=== PATIENT | female | born 1965 | race Caucasian/White ===

== ENCOUNTER 2017-02-24 21:05 | Observation (INO) | payer MEDICARE, SELFPAY ==
[2017-02-24 21:06] VITALS: BP 169/102; PULSE 102; RESP 20; TEMP 36.7; O2SAT 92; BMI 44.1
--- NOTE | 2017-02-24 21:23 | RAD_ITS ---
STUDY: X-RAY CHEST REASON FOR EXAM: Female, 51 years old. Shortness of breath and congestion TECHNIQUE: COMPARISON: None. FINDINGS: The lungs are clear and expanded. There is no demonstrated pleural abnormality. Normal size heart. Normal mediastinum and christy. Normal visualized pulmonary arteries. Normal visualized aortic arch and descending thoracic aorta. Normal visualized thoracic spine. Normal visualized ribs, clavicles, and shoulders. There is no demonstrated abnormality of the visualized soft tissue structures of the upper abdomen. RAD/Chest 1 View (Portable) IMPRESSION: Normal x-ray examination of the chest. Electronically Signed: Simón Alcantar MD at 21:50 EDT , Service support ,
--- NOTE | 2017-02-24 21:23 | EKG12_ITS ---
Test Reason : SOB Blood Pressure : / mmHG Vent. Rate : 082 BPM Atrial Rate : 082 BPM P-R Int : 160 ms QRS Dur : 084 ms QT Int : 388 ms P-R-T Axes : 039 -17 050 degrees QTc Int : 453 ms Normal sinus rhythm Poor R wave progression Inferior infarct , age undetermined Abnormal ECG Confirmed by LILLIAN LEPE, JUWAN ([id number]), greeting card editor COLLINS QUEZADA ([id number]) on 03/01/2017 2:16:07 PM Referred By: GIBSON Confirmed By:JUWAN SNYDER MD
--- NOTE | 2017-02-24 21:25 | ED.VISSUMM ---
- ER Visit Summary Date of Service: 02/24/17 Chief Complaint: Lungs congested, shortness of breath History of Present Illness: The patient is a 51 F presents with cough, shortness of breath, congestion. This has been ongoing for the past 2 days. She feels short of breath worsened when she walks around. She has chest pain intermittently. She has a history of tracheostomy status post angioedema and history of COPD. She uses albuterol at home. She noted greenish discharge on her tracheostomy dressing. She complains of subjective fever. Denies other complaints. Physical Examination: Vitals are stable. Patient is afebrile. Alert no acute distress. HEENT exam is unremarkable. Neck is supple, tracheostomy clean dry and intact, no drainage noted. Lungs are diminished bilaterally. Heart is regular rate and rhythm. Abdomen is soft nontender nondistended. Extremities are unremarkable. Skin is warm and dry. No focal neurologic deficit. Remainder of exam is unremarkable. Emergency Department Course and Treatment: She is given albuterol and Atrovent aerosols. She is given Solu-Medrol IV. EKG is sinus rate is 82 with no acute ischemic changes. Chest x-ray shows no acute process. CBC chemistries unremarkable except for creatinine 1.5, glucose 159. Troponin is negative. Lactic acid is 2.1. Patient does not meet sirs criteria, I feel her symptoms are likely due to COPD exacerbation. She was ambulated in the ED and maintained pulse ox of 94%, but did develop chest pain after ambulating. Repeat EKG showed normal sinus rhythm rate of 96 with no acute ischemic changes. Due to her chest pain and COPD exacerbation will discuss with the hospitalist for observation. Disposition: Observation Impression: COPD exacerbation, chest pain ED Disposition - Plan for ED Patient: Chief Complaint: Shortness of Breath Referrals: Joaquim Burks DO [Primary Care Provider] -
[2017-02-24 21:46] VITALS: PULSE 104; RESP 20; O2SAT 95
[2017-02-24] MEDS: Ipratropium/Albuterol Sulfate 3 ML AMPUL.NEB INHALATION (21:46)
[2017-02-24 21:51] LABS: Absolute Lymphocyte Count 2.86 X10^3/ul (0.83-4.51); Basophil# 0.07 X10^3/uL; Basophil% 0.9 % (0-1); Eosinophil# 0.19 X10^3/uL; Eosinophils% 2.4 % (0-5); Hematocrit 43.9 % (37-47); Hemoglobin 15.5 g/dl (12.0-15.0); Lymphocyte # 2.86 X10^3/ul (4.0); Lymphocyte % 35.9 % (19-41); Mean Corp Hgb Conc 35.3 g/gl (32-36); Mean Corpuscular Volume 87.8 fL (81-99); Mean Platelet Vol. 10.9 fl (6.2-12.0); Monocyte# 0.83 X10^3/uL; Monocyte% 10.4 % (0-10); Neutrophil # 3.95 X10^3/uL (2.7-7.7); Neutrophil % 49.6 % (47-70); Platelet Count 203 K/mm3 (150-450); RBC Distribution Width CV 13.1 % (11.6-14.6); RBC Distribution Width SD 41.7 fl (35.1-43.9)
[2017-02-24 21:52] LABS: POSITIVE COUNT NO; POSITIVE DIFFERENTIAL NO; POSITIVE MORPHOLOGY NO
[2017-02-24 22:22] LABS: Anion Gap 9 (5-15); BUN 14 mg/dL (7-18); BUN/Creat Ratio 9.3 RATIO (10-20); Calcium,Total 9.1 mg/dL (8.5-10.1); Chloride 101 mmol/L (98-107); EST Glomerular Filtration Rate 39 mL/min (>60); Est Glom Filt Rate - Afr Amer 47 mL/min (>60); Estimated Creatinine Clearance 39.93 ml/min; Glucose 159 mg/dL (70-110); Potassium 3.6 mmol/L (3.5-5.1); Sodium Level 136 mmol/L (136-145)
[2017-02-24 22:23] VITALS: O2SAT 94
[2017-02-24 22:31] VITALS: BP 171/96; PULSE 91; RESP 16; O2SAT 94
[2017-02-24 22:31] LABS: Lactic Acid 2.1 mmol/L (0.4-2.0)
--- NOTE | 2017-02-24 22:31 | ED.RN ---
PT C/O CP WHILE SITTING IN BED AFTER AMBULATION. PT PLACED ON MONITOR IN ROOM AND CALLED FOR REPEAT EKG. MD NOTIFIED OF NEW ONSET CP. ORDERS PLACED
--- NOTE | 2017-02-24 22:33 | ED.RN ---
lab called with critical lab results. lactic acid 2.1. Dr. siddiqui made aware. no new orders at this time
--- NOTE | 2017-02-24 22:34 | EKG12_ITS ---
Test Reason : CP-REPEAT Blood Pressure : / mmHG Vent. Rate : 096 BPM Atrial Rate : 096 BPM P-R Int : 152 ms QRS Dur : 082 ms QT Int : 358 ms P-R-T Axes : 042 -17 050 degrees QTc Int : 452 ms Normal sinus rhythm Inferior infarct , age undetermined Nonspecific T wave abnormality Abnormal ECG Confirmed by LILLIAN LEPE, JUWAN ([id number]), film and video editor COLLINS QUEZADA ([id number]) on 03/01/2017 2:16:33 PM Referred By: GIBSON Confirmed By:JUWAN SNYDER MD
[2017-02-24] MEDS: MethylPREDNISolone 125 MG/2 ML Vial IV (22:41)
--- NOTE | 2017-02-24 23:13 | PCM.HP.STD ---
Problem List (1) COPD (chronic obstructive pulmonary disease) Status: Chronic Qualifiers: COPD type: unspecified COPD Qualified Code(s): J44.9 - Chronic obstructive pulmonary disease, unspecified (2) Morbid obesity Status: Chronic (3) Anxiety and depression Status: Chronic (4) Status post tracheostomy Status: Chronic (5) Depression Status: Chronic Qualifiers: Depression Type: unspecified Qualified Code(s): F32.9 - Major depressive disorder, single episode, unspecified (6) Hyperlipidemia Status: Chronic Qualifiers: Hyperlipidemia type: unspecified Qualified Code(s): E78.5 - Hyperlipidemia, unspecified (7) Hypertension Status: Chronic Qualifiers: Hypertension type: essential hypertension Qualified Code(s): I10 - Essential (primary) hypertension (8) Type II diabetes mellitus Status: Chronic Qualifiers: Diabetes mellitus complication status: with unspecified complications Diabetes mellitus skilled nursing insulin use: without skilled nursing use Qualified Code(s): E11.8 - Type 2 diabetes mellitus with unspecified complications History of Present Illness Date of Admission: 02/24/17 Chief Complaint: Dyspnea, cough, wheezing The patient is a 51 y/o F w/ PMHx: Chronic COPD, HTN, Anxiety and Depression, GERD, Morbid Obesity with trach in place secondary to angioedema, unclear etiology who presents with dyspnea, upper respiratory symptoms with congestion. She notes respiratory symptoms ongoing x 2-3 days, not improving. She notes that her dyspnea and wheezing have been worse with exertional attempts. She noted some discharge from her tracheostomy but upon ED evaluation she had no marked discharge, well appearing. She also noted subjective fever; however, afebrile in the ED. In the ED work-up included AF, HR 70-90s, BP 170/90s, RR 16, 94-97% on RA, CBC without WBC elevation or shift noted, BMP w/ BUN/Cr 14/1.50, glucose 159, LA 2.1, trop <0.02, EKG SR without acute evidence of ischemia, CXR with chronic changes. In the ED patient administered duoneb, solumedrol, NS. While in the ED with ambulation assessment she noted some central substernal chest pressure which quickly resolved, repeat EKG unchanged. Past Medical History Past Medical History (Chronic Problems): Chronic Problems Anxiety and depression (Chronic) COPD (chronic obstructive pulmonary disease) (Chronic) Morbid obesity (Chronic) Depression (Chronic) Hyperlipidemia (Chronic) Hypertension (Chronic) Status post tracheostomy (Chronic) Type II diabetes mellitus (Chronic) Allergies bupropion [From Wellbutrin] Allergy (Verified 02/24/17 21:08) Angioedema lisinopril Allergy (Verified 02/24/17 21:08) Angioedema sulfamethoxazole [From Bactrim] Allergy (Verified 02/24/17 21:08) Rash trimethoprim [From Bactrim] Allergy (Verified 02/24/17 21:08) Rash acetaminophen [From Vicodin] Adverse Reaction (Verified 02/24/17 21:08) Nausea/Vom/Diarrhea aspirin Adverse Reaction (Verified 02/24/17 21:08) Nausea/Vom/Diarrhea hydrocodone [From Vicodin] Adverse Reaction (Verified 02/24/17 21:08) Nausea/Vom/Diarrhea Home Medications: Ambulatory Orders Medication Instructions Recorded Atenolol [Tenormin (beta haley)] 100 mg PO DAILY 02/20/16 Buspirone HCl 15 mg PO TID 02/20/16 Fluoxetine HCl 40 mg PO DAILY 02/20/16 Spironolactone [Aldactone] 50 mg PO DAILY 02/20/16 Epinephrine [Epi Pen] 0.3 mg IM X1 PRN #1 syringe 04/01/16 Famotidine [Pepcid] 40 mg PO DAILY #5 tablet 04/01/16 Loratadine [Claritin] 10 mg PO DAILY 12/16/16 GlyBURIDE [Micronase] 2.5 mg PO DAILY 02/25/17 Trazodone HCl 100 mg PO QHS 02/25/17 Surgical History: - - Tracheostomy, cholecystectomy, bilateral tubal ligation, NovaSure, bladder suspension surgery. Psychiatric History: No pertinent psych hx [employer] History: No pertinent [employer] history Lives: Spouse/ Significant Other Smoking Status: Former smoker - Quit 2 years prior. Tobacco Use: Non-smoker Alcohol: None Drugs: None - *Family History Maternal History Items: Diabetes, High Cholesterol, Heart Disease, Hypertension Paternal History Items: Diabetes, High Cholesterol, Heart Disease, Hypertension Review of Systems Constitutional: Reports: Fever, Weakness, Fatigue. Denies: Chills, Weight Change HEENT: Reports: Nasal Congestion, Post Nasal Drip, Sinus Drainage. Denies: Head Aches, Sinus Congestion Cardiovascular: Denies: Chest Pain, Palpitations Respiratory: Reports: Cough, Shortness of Breath, Shortness of breath at rest, Shortness of breath upon exertion, Sputum production, Wheezing Gastrointestinal: Denies: Abdominal Pain, Nausea, Vomiting Genitourinary: Denies: Dysuria Musculoskeletal: Denies: Joint Pain, Joint Tenderness Skin: Denies: Rash, Wounds Neurological: Denies: Numbness, Tingling, Focal weakness Psychiatric: Reports: Anxiety, Depression. Denies: Homicidal Ideations, Suicidal Ideations Hematologic/ Lymphatic: Denies: Easy Bruising, Easy Bleeding VTE Information - Inpt Only VTE Present on Admission: No VTE Mechan Device Prophylaxis: SCD's VTE Pharm Prophylaxis ordered?: Yes Subjective: Seated upright in bed, NAD, improved appearance, remains on RA. Objective: Physical Examination: General: awake, alert, oriented x 3 and cooperative, seated upright in bedside chair, in no apparent distress. Skin: normal color, turgor, no icterus, cyanosis. HEENT: AT/NC, EOMI, PERRLA, dry MM, no carotid bruits or JVD noted; however, thickened neck makes examination difficult, tracheostomy in place, no purulent sputum noted. Lungs: Diminished BS BL, > bases, mild effort, no rales, ronchi or wheezing. Heart: Regular rate and rhythm; no gallop, rub audible. Abdomen: soft, morbidly obese, NTTP, ND, normal BS, no HSM. Extremities: no cyanosis, clubbing, BL ankle edema. Neurological: patient awake, alert, oriented x 3; cognitive function intact; pupils equally reactive to light and accomodation; cranial nerves II-XII grossly normal, moving all 4 extremities, no focal deficits, strength moderately to severely globally decreased secondary to acute presentation. Psychiatric: affect appears normal, no acute evidence of depressive or anxiety feelings. - Physical Exam Vital Signs Temp Pulse Resp BP Pulse Ox 98.0 F 91 16 171/96 94 02/24/17 21:06 02/24/17 22:31 02/24/17 22:31 02/24/17 22:31 02/24/17 22:31 Oxygen Delivery Method Room Air Weight: 265 lb 3.457 oz Body Mass Index (BMI) 44.1 Laboratory Tests Past 24 Hrs 02/24/17 02/24/17 02/24/17 21:40 21:40 21:40 WBC 8.0 RBC 5.00 Hgb 15.5 H Hct 43.9 MCV 87.8 MCH 31.0 MCHC 35.3 RDW 13.1 RDW Differential 41.7 Plt Count 203 MPV 10.9 Immature Gran % (Auto) 0.800 Neut % (Auto) 49.6 Lymph % (Auto) 35.9 [place] % (Auto) 10.4 H Eos % (Auto) 2.4 Baso % (Auto) 0.9 Absolute Neuts (auto) 4.0 Absolute Lymphs (auto) 2.86 Total Counted Not Reportable Sodium 136 Potassium 3.6 Chloride 101 Carbon Dioxide 26.0 Anion Gap 9 BUN 14 Creatinine 1.50 H Estim Creat Clear Calc 39.93 Est GFR (MDRD) Af Amer 47 L Est GFR (MDRD) Non-Af 39 L BUN/Creatinine Ratio 9.3 L Glucose 159 H Lactic Acid 2.1 H Calcium 9.1 Troponin I < 0.02 Assessment/Plan The patient is a 51 y/o F w/ PMHx: Chronic COPD, HTN, Anxiety and Depression, GERD, Morbid Obesity with trach in place secondary to angioedema, unclear etiology who presents with dyspnea, upper respiratory symptoms with congestion x 2-3 days. (1) Acute on chronic COPD exacerbation: Will admit to [facility] telemetry, maintain on oxygen with wean as tolerated to room air, continue ATC duonebs, PRN albuterol, IV methylprednisolone with prednisone transition, HOB, IS parameters, defer abx given afebrile, no marked WBC elevation or shift, pending sputum cultures. Respiratory viral panel pending. (2) Chest Pain: EKG SR without acute evidence of ischemia, CXR with chronic changes, trop normal x 1. Likely secondary to concurrent COPD exacerbation but to be cautious will maintain on a monitored bed to assure no acute myocardial infarction with serial cardiac enzymes and EKGs. ASA allergy. (3) Acute kidney injury: Unclear specific etiology, possible mild dehydration, pre-renal in addition to nephrotoxic medications. Admission BUN/Cr 14/1.50, prior baseline creatinine noted to be 0.8-1.0. Will hydrate, hold nephrotoxic medications and repeat chemistry in AM. (4) History of Severe Angioedema, s/p Tracheostomy: s/p trach as noted, possibly secondary to ACEI. (5) Hypertension: Continue home regimen including atenolol, holding spironolactone as noted, PRN hydralazine. (6) Morbid Obesity: Weight loss and lifestyle changes encouraged, nutrition consulted. (7) Anxiety and Depression: Continue home regimen dodie perdomo. (8) GERD: Famotidine. (9) DVT Prophylaxis: SCDs, heparin.
--- NOTE | 2017-02-24 23:24 | HP.PCM_ITS ---
Problem List (1) COPD (chronic obstructive pulmonary disease) Status: Chronic Qualifiers: COPD type: unspecified COPD Qualified Code(s): J44.9 - Chronic obstructive pulmonary disease, unspecified (2) Morbid obesity Status: Chronic (3) Anxiety and depression Status: Chronic (4) Status post tracheostomy Status: Chronic (5) Depression Status: Chronic Qualifiers: Depression Type: unspecified Qualified Code(s): F32.9 - Major depressive disorder, single episode, unspecified (6) Hyperlipidemia Status: Chronic Qualifiers: Hyperlipidemia type: unspecified Qualified Code(s): E78.5 - Hyperlipidemia , unspecified (7) Hypertension Status: Chronic Qualifiers: Hypertension type: essential hypertension Qualified Code(s): I10 - Essential (primary) hypertension (8) Type II diabetes mellitus Status: Chronic Qualifiers: Diabetes mellitus complication status: with unspecified complications Diabetes mellitus mcfp insulin use: without news broadcaster use Qualified Code( s): E11.8 - Type 2 diabetes mellitus with unspecified complications History of Present Illness Date of Admission: 02/24/17 Chief Complaint: Dyspnea, cough, wheezing The patient is a 51 y/o F w/ PMHx: Chronic COPD, HTN, Anxiety and Depression, GERD, Morbid Obesity with trach in place secondary to angioedema, unclear etiology who presents with dyspnea, upper respiratory symptoms with congestion. She notes respiratory symptoms ongoing x 2-3 days, not improving. She notes that her dyspnea and wheezing have been worse with exertional attempts. She noted some discharge from her tracheostomy but upon ED evaluation she had no marked discharge, well appearing. She also noted subjective fever; however, afebrile in the ED. In the ED work-up included AF, HR 70-90s, BP 170/90s, RR 16 , 94-97% on RA, CBC without WBC elevation or shift noted, BMP w/ BUN/Cr 14/1.50 , glucose 159, LA 2.1, trop <0.02, EKG SR without acute evidence of ischemia, CXR with chronic changes. In the ED patient administered duoneb, solumedrol, NS. While in the ED with ambulation assessment she noted some central substernal chest pressure which quickly resolved, repeat EKG unchanged. Past Medical History Past Medical History (Chronic Problems): Chronic Problems Anxiety and depression (Chronic) COPD (chronic obstructive pulmonary disease) (Chronic) Morbid obesity (Chronic) Depression (Chronic) Hyperlipidemia (Chronic) Hypertension (Chronic) Status post tracheostomy (Chronic) Type II diabetes mellitus (Chronic) Allergies bupropion [From Wellbutrin] Allergy (Verified 02/24/17 21:08) Angioedema lisinopril Allergy (Verified 02/24/17 21:08) Angioedema sulfamethoxazole [From Bactrim] Allergy (Verified 02/24/17 21:08) Rash trimethoprim [From Bactrim] Allergy (Verified 02/24/17 21:08) Rash acetaminophen [From Vicodin] Adverse Reaction (Verified 02/24/17 21:08) Nausea/Vom/Diarrhea aspirin Adverse Reaction (Verified 02/24/17 21:08) Nausea/Vom/Diarrhea hydrocodone [From Vicodin] Adverse Reaction (Verified 02/24/17 21:08) Nausea/Vom/Diarrhea Home Medications: Ambulatory Orders Medication Instructions Recorded Atenolol [Tenormin (beta haley)] 100 mg PO DAILY 02/20/16 Buspirone HCl 15 mg PO TID 02/20/16 Fluoxetine HCl 40 mg PO DAILY 02/20/16 Spironolactone [Aldactone] 50 mg PO DAILY 02/20/16 Epinephrine [Epi Pen] 0.3 mg IM X1 PRN #1 syringe 04/01/16 Famotidine [Pepcid] 40 mg PO DAILY #5 tablet 04/01/16 Loratadine [Claritin] 10 mg PO DAILY 12/16/16 GlyBURIDE [Micronase] 2.5 mg PO DAILY 02/25/17 Trazodone HCl 100 mg PO QHS 02/25/17 Surgical History: - - Tracheostomy, cholecystectomy, bilateral tubal ligation, NovaSure, bladder suspension surgery. Psychiatric History: No pertinent psych hx [employer] History: No pertinent [employer] history Lives: Spouse/ Significant Other Smoking Status: Former smoker - Quit 2 years prior. Tobacco Use: Non-smoker Alcohol: None Drugs: None - *Family History Maternal History Items: Diabetes, High Cholesterol, Heart Disease, Hypertension Paternal History Items: Diabetes, High Cholesterol, Heart Disease, Hypertension Review of Systems Constitutional: Reports: Fever, Weakness, Fatigue. Denies: Chills, Weight Change HEENT: Reports: Nasal Congestion, Post Nasal Drip, Sinus Drainage. Denies: Head Aches, Sinus Congestion Cardiovascular: Denies: Chest Pain, Palpitations Respiratory: Reports: Cough, Shortness of Breath, Shortness of breath at rest, Shortness of breath upon exertion, Sputum production, Wheezing Gastrointestinal: Denies: Abdominal Pain, Nausea, Vomiting Genitourinary: Denies: Dysuria Musculoskeletal: Denies: Joint Pain, Joint Tenderness Skin: Denies: Rash, Wounds Neurological: Denies: Numbness, Tingling, Focal weakness Psychiatric: Reports: Anxiety, Depression. Denies: Homicidal Ideations, Suicidal Ideations Hematologic/ Lymphatic: Denies: Easy Bruising, Easy Bleeding VTE Information - Inpt Only VTE Present on Admission: No VTE Mechan Device Prophylaxis: SCD's VTE Pharm Prophylaxis ordered?: Yes Subjective: Seated upright in bed, NAD, improved appearance, remains on RA. Objective: Physical Examination: General: awake, alert, oriented x 3 and cooperative, seated upright in bedside chair, in no apparent distress. Skin: normal color, turgor, no icterus, cyanosis. HEENT: AT/NC, EOMI, PERRLA, dry MM, no carotid bruits or JVD noted; however, thickened neck makes examination difficult, tracheostomy in place, no purulent sputum noted. Lungs: Diminished BS BL, > bases, mild effort, no rales, ronchi or wheezing. Heart: Regular rate and rhythm; no gallop, rub audible. Abdomen: soft, morbidly obese, NTTP, ND, normal BS, no HSM. Extremities: no cyanosis, clubbing, BL ankle edema. Neurological: patient awake, alert, oriented x 3; cognitive function intact; pupils equally reactive to light and accomodation; cranial nerves II-XII grossly normal, moving all 4 extremities, no focal deficits, strength moderately to severely globally decreased secondary to acute presentation. Psychiatric: affect appears normal, no acute evidence of depressive or anxiety feelings. - Physical Exam Vital Signs Temp Pulse Resp BP Pulse Ox 98.0 F 91 16 171/96 94 02/24/17 21:06 02/24/17 22:31 02/24/17 22:31 02/24/17 22:31 02/24/17 22:31 Oxygen Delivery Method Room Air Weight: 265 lb 3.457 oz Body Mass Index (BMI) 44.1 Laboratory Tests Past 24 Hrs 02/24/17 02/24/17 02/24/17 21:40 21:40 21:40 WBC 8.0 RBC 5.00 Hgb 15.5 H Hct 43.9 MCV 87.8 MCH 31.0 MCHC 35.3 RDW 13.1 RDW Differential 41.7 Plt Count 203 MPV 10.9 Immature Gran % (Auto) 0.800 Neut % (Auto) 49.6 Lymph % (Auto) 35.9 [place] % (Auto) 10.4 H Eos % (Auto) 2.4 Baso % (Auto) 0.9 Absolute Neuts (auto) 4.0 Absolute Lymphs (auto) 2.86 Total Counted Not Reportable Sodium 136 Potassium 3.6 Chloride 101 Carbon Dioxide 26.0 Anion Gap 9 BUN 14 Creatinine 1.50 H Estim Creat Clear Calc 39.93 Est GFR (MDRD) Af Amer 47 L Est GFR (MDRD) Non-Af 39 L BUN/Creatinine Ratio 9.3 L Glucose 159 H Lactic Acid 2.1 H Calcium 9.1 Troponin I < 0.02 Assessment/Plan The patient is a 51 y/o F w/ PMHx: Chronic COPD, HTN, Anxiety and Depression, GERD, Morbid Obesity with trach in place secondary to angioedema, unclear etiology who presents with dyspnea, upper respiratory symptoms with congestion x 2-3 days. (1) Acute on chronic COPD exacerbation: Will admit to [facility] telemetry, maintain on oxygen with wean as tolerated to room air, continue ATC duonebs, PRN albuterol, IV methylprednisolone with prednisone transition, HOB, IS parameters, defer abx given afebrile, no marked WBC elevation or shift, pending sputum cultures. Respiratory viral panel pending. (2) Chest Pain: EKG SR without acute evidence of ischemia, CXR with chronic changes, trop normal x 1. Likely secondary to concurrent COPD exacerbation but to be cautious will maintain on a monitored bed to assure no acute myocardial infarction with serial cardiac enzymes and EKGs. ASA allergy. (3) Acute kidney injury: Unclear specific etiology, possible mild dehydration, pre-renal in addition to nephrotoxic medications. Admission BUN/Cr 14/1.50, prior baseline creatinine noted to be 0.8-1.0. Will hydrate, hold nephrotoxic medications and repeat chemistry in AM. (4) History of Severe Angioedema, s/p Tracheostomy: s/p trach as noted, possibly secondary to ACEI. (5) Hypertension: Continue home regimen including atenolol, holding spironolactone as noted, PRN hydralazine. (6) Morbid Obesity: Weight loss and lifestyle changes encouraged, nutrition consulted. (7) Anxiety and Depression: Continue home regimen dodie perdomo. (8) GERD: Famotidine. (9) DVT Prophylaxis: SCDs, heparin.
[2017-02-24 23:26] VITALS: BP 158/93; PULSE 94; RESP 15; O2SAT 94
[2017-02-25] VITALS (9 sets, daily range): BP systolic 161–175; BP diastolic 82–88; PULSE 75–109; RESP 18–20; TEMP 36.6–36.8; O2SAT 95–97; BMI 44.1; BMI 43.7
--- NOTE | 2017-02-25 00:30 | NURSING ---
pt has not gotten vaccines since childhood
[2017-02-25 00:47] LABS: Reflex Lactate? N
[2017-02-25] MEDS: 0.9% Normal Saline 1,000 ML 999 ML IV (00:54)
[2017-02-25 01:57] LABS: Lactic Acid 1.9 mmol/L (0.4-2.0)
[2017-02-25] MEDS: Ipratropium/Albuterol Sulfate 3 ML AMPUL.NEB INHALATION ×2 (01:59→07:58)
[2017-02-25] MEDS: 0.9% Normal Saline 1,000 ML 125 ML IV (02:08)
[2017-02-25] MEDS: LORazepam 0.5 MG Tablet PO (04:47)
--- NOTE | 2017-02-25 05:55 | EKG12_ITS ---
Test Reason : AM Blood Pressure : / mmHG Vent. Rate : 103 BPM Atrial Rate : 103 BPM P-R Int : 160 ms QRS Dur : 084 ms QT Int : 366 ms P-R-T Axes : 045 -08 046 degrees QTc Int : 479 ms Sinus tachycardia Inferior infarct , age undetermined Abnormal ECG Confirmed by LILLIAN LEPE, JUWAN ([id number]), video effects editor COLLINS QUEZADA ([id number] on 03/02/2017 2:22:04 PM Referred By: OLIVA Confirmed By:JUWAN SNYDER MD
[2017-02-25 06:31] LABS: Anion Gap 14 (5-15); BUN 16 mg/dL (7-18); BUN/Creat Ratio 10.9 RATIO (10-20); Calcium,Total 8.8 mg/dL (8.5-10.1); Chloride 101 mmol/L (98-107); Creatinine, Serum 1.47 mg/dL (0.55-1.02); EST Glomerular Filtration Rate 40 mL/min (>60); Est Glom Filt Rate - Afr Amer 48 mL/min (>60); Estimated Creatinine Clearance 40.74 ml/min; Glucose 315 mg/dL (70-110); Potassium 3.9 mmol/L (3.5-5.1); Sodium Level 133 mmol/L (136-145)
[2017-02-25 06:32] LABS: Basophil# 0.02 X10^3/uL; Basophil% 0.3 % (0-1); Eosinophil# 0.01 X10^3/uL; Eosinophils% 0.2 % (0-5); Hematocrit 42.8 % (37-47); Hemoglobin 14.8 g/dl (12.0-15.0); Lymphocyte % 14.7 % (19-41); Mean Corp Hgb Conc 34.6 g/gl (32-36); Mean Corpuscular Hgb 30.6 pg (27.0-32.0); Mean Corpuscular Volume 88.6 fL (81-99); Monocyte# 0.12 X10^3/uL; Neutrophil # 5.03 X10^3/uL (2.7-7.7); Neutrophil % 81.8 % (47-70); Platelet Count 186 K/mm3 (150-450); RBC Distribution Width CV 13.1 % (11.6-14.6); RBC Distribution Width SD 42.3 fl (35.1-43.9); Red Blood Count 4.83 M/mm3 (4.2-5.4); White Blood Count 6.1 K/mm3 (4.4-11.0)
[2017-02-25 06:40] LABS: POSITIVE COUNT NO; POSITIVE DIFFERENTIAL NO; POSITIVE MORPHOLOGY NO
[2017-02-25 06:46] LABS: Bedside Glucose 310 mg/dL (70-110)
--- NOTE | 2017-02-25 07:31 | PCM.PN.HOSP ---
Subjective: Patient is a 51 year old lady with BMI of 43.8, presence of trach secondary to angioedema of undetermined etiology admitted with progressive shortness of breath and assessment of COPD exacerbation made admitted to a monitored bed where patient is currently being managed Objective: GENERAL: cooperative HEENT: Trach collar in place NECK; supple, normal thyroid, no distended JVD. CHEST: Diminished to auscultation bilaterally, HEART: Regular S1 S2, no audible murmurs ABDOMEN: soft, normoactive bowel sounds, RECTAL: deferred EXTREMITIES: No edema, no clubbing, no cyanosis. ME[employer]ER: Awake, no lateralizing signs. SKIN: No erythema, Vitals/I&O's: Vital Signs Temp Pulse Resp BP Pulse Ox 98.3 F 105 18 161/88 95 02/25/17 04:49 02/25/17 04:49 02/25/17 04:49 02/25/17 04:49 02/25/17 04:49 Oxygen Delivery Method Room Air Weight: 119.3 kg Body Mass Index (BMI) 43.7 Intake and Output for Last 24 Hours 02/23/17 02/24/17 02/25/17 23:59 23:59 23:59 Intake Total 1853 Output Total 975 Balance 878 Laboratory Results 02/25/17 01:22: Troponin I < 0.02 02/25/17 01:22: Lactic Acid 1.9 02/25/17 05:47: WBC 6.1, RBC 4.83, Hgb 14.8, Hct 42.8, MCV 88.6, MCH 30.6, MCHC 34.6, RDW 13.1, RDW Differential 42.3, Plt Count 186, MPV 11.0, Immature Gran % (Auto) 1.000 H, Neut % (Auto) 81.8 H, Lymph % (Auto) 14.7 L, [place] % (Auto) 2.0, Eos % (Auto) 0.2, Baso % (Auto) 0.3, Absolute Neuts (auto) 5.0, Absolute Lymphs (auto) 0.90, Total Counted Not Reportable 02/25/17 05:47: Sodium 133 L, Potassium 3.9, Chloride 101, Carbon Dioxide 18.0 L, Anion Gap 14, BUN 16, Creatinine 1.47 H, Estim Creat Clear Calc 40.74, Est GFR (MDRD) Af Amer 48 L, Est GFR (MDRD) Non-Af 40 L, BUN/Creatinine Ratio 10.9, Glucose 315 H, Calcium 8.8, Troponin I < 0.02 02/25/17 06:36: POC Glucose 310 H Current Medications Acetaminophen (Tylenol) 650 mg PO Q6H PRN PRN PRN Reason: Mild Pain (scale 0-3)/T>100.7 Albuterol Sulfate (Ventolin Aerosols) 2.5 mg INHALATION Q2H PRN PRN PRN Reason: SHORTNESS OF BREATH Albuterol/Ipratropium (Duoneb) 3 ml INHALATION Q4H.RT [facility] Last Admin: 02/25/17 01:59 Dose: 3 ml Atenolol (Tenormin (Beta Jovanni)) 100 mg PO DAILY [facility] Buspirone HCl (Buspirone Hcl) 15 mg PO TID [facility] Last Admin: 02/25/17 06:41 Dose: 15 mg Dextrose (D50w Syringe) 0 gm IV X1 PRN; Protocol PRN Reason: Hypoglycemia Famotidine (Pepcid) 40 mg PO DAILY [facility] Fluoxetine HCl (Prozac) 40 mg PO DAILY [facility] Last Admin: 02/25/17 00:47 Dose: Not Given Glucagon () 1 mg IM .X1 PRN PRN Reason: Hypoglycemia Guaifenesin (Mucinex) 1,200 mg PO BID [facility] Heparin Sodium (Porcine) () 5,000 units SC BID [facility] Hydralazine HCl (Apresoline) 10 mg IV Q4H PRN PRN PRN Reason: SBP > 160 Last Admin: 02/25/17 01:00 Dose: 10 mg Sodium Chloride () 1,000 mls @ 125 mls/hr IV .Q8H [facility] Last Admin: 02/25/17 02:08 Dose: 125 mls/hr Insulin Aspart (Novolog Flexpen (Bkc)) 0 units SC ACHS [facility] PRN Reason: Protocol Last Admin: 02/25/17 06:46 Dose: 3 u Insulin Aspart (Novolog Flexpen (Bkc)) 4 units SC BREAKFAST [facility] Insulin Aspart (Novolog Flexpen (Bkc)) 4 units SC DINNER [facility] Insulin Aspart (Novolog Flexpen (Bkc)) 4 units SC LUNCH [facility] Insulin Detemir (Levemir (Bkc)) 15 units SC BREAKFAST [facility] Insulin Detemir (Levemir (Bkc)) 15 units SC QHS [facility] Loratadine (Claritin) 10 mg PO DAILY [facility] Lorazepam (Ativan) 0.5 mg PO Q8H PRN PRN PRN Reason: anxiety Last Admin: 02/25/17 04:47 Dose: 0.5 mg Methylprednisolone (Solu-Medrol) 40 mg IV Q8 [facility] Last Admin: 02/25/17 06:43 Dose: 40 mg Ondansetron HCl (Zofran) 4 mg IV Q8H PRN PRN PRN Reason: Nausea Sodium Chloride () 5 - 30 ml IV UD PRN PRN Reason: SALINE FLUSH Trazodone HCl (Desyrel) 100 mg PO QHS [facility] Last Admin: 02/25/17 02:07 Dose: 100 mg Assessment/Plan Patient is a 51 year old lady with BMI of 43.8, presence of trach secondary to angioedema of undetermined etiology admitted with progressive shortness of breath and assessment of COPD exacerbation made admitted to a monitored bed where patient is currently being managed 1. Acute COPD exacerbation: Admitted to regular nursing floor managed with systemic steroids, antibiotics as well as supplemental oxygen via trach 2. Diabetes mellitus type 2 with hyperglycemia (due to concomitant use of steroid) patient is on glyburide held on admission placed on scheduled long-acting insulin in addition to correction factor sliding scale 3. Chronic respiratory failure secondary to angioedema with subsequent trach placement 4. Diabetic nephropathy kidney function appears to be at baseline 5. Hypertension-blood pressure controlled, home medications continued with dose adjustment as needed 6. Depression with anxiety 7. GERD 8. Morbid obesity with BMI of 43.8 9. DVT prophylaxis SC heparin
--- NOTE | 2017-02-25 07:34 | PN_ITS ---
Subjective: Patient is a 51 year old lady with BMI of 43.8, presence of trach secondary to angioedema of undetermined etiology admitted with progressive shortness of breath and assessment of COPD exacerbation made admitted to a monitored bed where patient is currently being managed Objective: GENERAL: cooperative HEENT: Trach collar in place NECK; supple, normal thyroid, no distended JVD. CHEST: Diminished to auscultation bilaterally, HEART: Regular S1 S2, no audible murmurs ABDOMEN: soft, normoactive bowel sounds, RECTAL: deferred EXTREMITIES: No edema, no clubbing, no cyanosis. SPD TECH: Awake, no lateralizing signs. SKIN: No erythema, Vitals/I&O's: Vital Signs Temp Pulse Resp BP Pulse Ox 98.3 F 105 18 161/88 95 02/25/17 04:49 02/25/17 04:49 02/25/17 04:49 02/25/17 04:49 02/25/17 04:49 Oxygen Delivery Method Room Air Weight: 119.3 kg Body Mass Index (BMI) 43.7 Intake and Output for Last 24 Hours 02/23/17 02/24/17 02/25/17 23:59 23:59 23:59 Intake Total 1853 Output Total 975 Balance 878 Laboratory Results 02/25/17 01:22: Troponin I < 0.02 02/25/17 01:22: Lactic Acid 1.9 02/25/17 05:47: WBC 6.1, RBC 4.83, Hgb 14.8, Hct 42.8, MCV 88.6, MCH 30.6, MCHC 34.6, RDW 13.1, RDW Differential 42.3, Plt Count 186, MPV 11.0, Immature Gran % (Auto) 1.000 H, Neut % (Auto) 81.8 H, Lymph % (Auto) 14.7 L, [place] % (Auto) 2.0, Eos % (Auto) 0.2, Baso % (Auto) 0.3, Absolute Neuts (auto) 5.0, Absolute Lymphs (auto) 0.90, Total Counted Not Reportable 02/25/17 05:47: Sodium 133 L, Potassium 3.9, Chloride 101, Carbon Dioxide 18.0 L , Anion Gap 14, BUN 16, Creatinine 1.47 H, Estim Creat Clear Calc 40.74, Est GFR (MDRD) Af Amer 48 L, Est GFR (MDRD) Non-Af 40 L, BUN/Creatinine Ratio 10.9, Glucose 315 H, Calcium 8.8, Troponin I < 0.02 02/25/17 06:36: POC Glucose 310 H Current Medications Acetaminophen (Tylenol) 650 mg PO Q6H PRN PRN PRN Reason: Mild Pain (scale 0-3)/T>100.7 Albuterol Sulfate (Ventolin Aerosols) 2.5 mg INHALATION Q2H PRN PRN PRN Reason: SHORTNESS OF BREATH Albuterol/Ipratropium (Duoneb) 3 ml INHALATION Q4H.RT [facility] Last Admin: 02/25/17 01:59 Dose: 3 ml Atenolol (Tenormin (Beta Jovanni)) 100 mg PO DAILY [facility] Buspirone HCl (Buspirone Hcl) 15 mg PO TID [facility] Last Admin: 02/25/17 06:41 Dose: 15 mg Dextrose (D50w Syringe) 0 gm IV X1 PRN; Protocol PRN Reason: Hypoglycemia Famotidine (Pepcid) 40 mg PO DAILY [facility] Fluoxetine HCl (Prozac) 40 mg PO DAILY [facility] Last Admin: 02/25/17 00:47 Dose: Not Given Glucagon () 1 mg IM .X1 PRN PRN Reason: Hypoglycemia Guaifenesin (Mucinex) 1,200 mg PO BID [facility] Heparin Sodium (Porcine) () 5,000 units SC BID [facility] Hydralazine HCl (Apresoline) 10 mg IV Q4H PRN PRN PRN Reason: SBP > 160 Last Admin: 02/25/17 01:00 Dose: 10 mg Sodium Chloride () 1,000 mls @ 125 mls/hr IV .Q8H [facility] Last Admin: 02/25/17 02:08 Dose: 125 mls/hr Insulin Aspart (Novolog Flexpen (Bkc)) 0 units SC ACHS [facility] PRN Reason: Protocol Last Admin: 02/25/17 06:46 Dose: 3 u Insulin Aspart (Novolog Flexpen (Bkc)) 4 units SC BREAKFAST [facility] Insulin Aspart (Novolog Flexpen (Bkc)) 4 units SC DINNER [facility] Insulin Aspart (Novolog Flexpen (Bkc)) 4 units SC LUNCH [facility] Insulin Detemir (Levemir (Bkc)) 15 units SC BREAKFAST [facility] Insulin Detemir (Levemir (Bkc)) 15 units SC QHS [facility] Loratadine (Claritin) 10 mg PO DAILY [facility] Lorazepam (Ativan) 0.5 mg PO Q8H PRN PRN PRN Reason: anxiety Last Admin: 02/25/17 04:47 Dose: 0.5 mg Methylprednisolone (Solu-Medrol) 40 mg IV Q8 [facility] Last Admin: 02/25/17 06:43 Dose: 40 mg Ondansetron HCl (Zofran) 4 mg IV Q8H PRN PRN PRN Reason: Nausea Sodium Chloride () 5 - 30 ml IV UD PRN PRN Reason: SALINE FLUSH Trazodone HCl (Desyrel) 100 mg PO QHS [facility] Last Admin: 02/25/17 02:07 Dose: 100 mg Assessment/Plan Patient is a 51 year old lady with BMI of 43.8, presence of trach secondary to angioedema of undetermined etiology admitted with progressive shortness of breath and assessment of COPD exacerbation made admitted to a monitored bed where patient is currently being managed 1. Acute COPD exacerbation: Admitted to regular nursing floor managed with systemic steroids, antibiotics as well as supplemental oxygen via trach 2. Diabetes mellitus type 2 with hyperglycemia (due to concomitant use of steroid) patient is on glyburide held on admission placed on scheduled long- acting insulin in addition to correction factor sliding scale 3. Chronic respiratory failure secondary to angioedema with subsequent trach placement 4. Diabetic nephropathy kidney function appears to be at baseline 5. Hypertension-blood pressure controlled, home medications continued with dose adjustment as needed 6. Depression with anxiety 7. GERD 8. Morbid obesity with BMI of 43.8 9. DVT prophylaxis SC heparin
--- NOTE | 2017-02-25 08:06 | DCINST_ITS ---
- Discharge Diagnoses Current Active Problems: Current Active and Chronic Problems Anxiety and depression (Chronic) COPD (chronic obstructive pulmonary disease) (Chronic) Morbid obesity (Chronic) You will use the following diet at home:: Calorie/Carbohydrate Controlled ( specify 1200, 1400, etc) - 1800 Your food should be the consistency of: Regular Discharge Activity: Return to Normal Activity, May not drive while taking narcotic pain medications. Allergies/Adverse Reactions: Allergies bupropion [From Wellbutrin] Allergy (Verified 02/24/17 21:08) Angioedema lisinopril Allergy (Verified 02/24/17 21:08) Angioedema sulfamethoxazole [From Bactrim] Allergy (Verified 02/24/17 21:08) Rash trimethoprim [From Bactrim] Allergy (Verified 02/24/17 21:08) Rash acetaminophen [From Vicodin] Adverse Reaction (Verified 02/24/17 21:08) Nausea/Vom/Diarrhea aspirin Adverse Reaction (Verified 02/24/17 21:08) Nausea/Vom/Diarrhea hydrocodone [From Vicodin] Adverse Reaction (Verified 02/24/17 21:08) Nausea/Vom/Diarrhea Medications to take at Discharge Atenolol [Tenormin (beta haley)] 100 mg PO DAILY 02/20/16 Buspirone HCl 15 mg PO TID 02/20/16 Fluoxetine HCl 40 mg PO DAILY 02/20/16 Spironolactone [Aldactone] 50 mg PO DAILY 02/20/16 Epinephrine [Epi Pen] 0.3 mg IM X1 PRN #1 syringe 04/01/16 Famotidine [Pepcid] 40 mg PO DAILY #5 tablet 04/01/16 Loratadine [Claritin] 10 mg PO DAILY 12/16/16 Doxycycline 100 mg PO BID #14 capsule 02/25/17 GlyBURIDE [Micronase] 2.5 mg PO DAILY 02/25/17 Guaifenesin [Mucinex] 1,200 mg PO BID #14 tablet 02/25/17 PredniSONE 40 mg PO DAILY@0800 #10 tablet 02/25/17 Trazodone HCl 100 mg PO QHS 02/25/17 The following prescriptions were given: Doxycycline 100 mg PO BID #14 capsule Guaifenesin [Mucinex] 1,200 mg PO BID #14 tablet PredniSONE 40 mg PO DAILY@0800 #10 tablet Primary Care Physician: Joaquim Bursk DO [Primary Care Provider] - Please follow up with your Primary Care Physician in: in 5-7 days Proposed Discharge Date: 02/25/17
--- NOTE | 2017-02-25 08:09 | DS.PCM_ITS ---
Discharge Date and Diagnosis - Problem List Patient Problems: Active and Suspected Problems COPD exacerbation (Acute) Date of Admission: 02/24/17 Date of Discharge: 02/25/17 - Primary Discharge Diagnosis COPD exacerbation - Secondary Discharge Diagnosis Chronic Problems Anxiety and depression (Chronic) COPD (chronic obstructive pulmonary disease) (Chronic) Morbid obesity (Chronic) Depression (Chronic) Hyperlipidemia (Chronic) Hypertension (Chronic) Status post tracheostomy (Chronic) Type II diabetes mellitus (Chronic) Hospital Course and Treatment Imaging Results: Clinical Impression(s) from Imaging Studies Chest X-Ray 02/24/17 21:23 IMPRESSION: Normal x-ray examination of the chest. Electronically Signed: Simón Alcantar MD at 21:50 EDT , Service support , Operations: None Summary of Care Provided: Patient is a 51 year old lady with BMI of 43.8, presence of trach secondary to angioedema of undetermined etiology admitted with progressive shortness of breath and assessment of COPD exacerbation made admitted to a monitored bed where patient is currently being managed 1. Acute COPD exacerbation: Admitted to regular nursing floor managed with systemic steroids, antibiotics as well as supplemental oxygen via trach patient had rapid improvement in her condition requested to be discharged yesterday after being admitted. She was instructed to follow-up with PCP within 5-7 days. 2. Diabetes mellitus type 2 with hyperglycemia (due to concomitant use of steroid) patient is on glyburide held on admission placed on scheduled long- acting insulin in addition to correction factor sliding scale 3. Chronic hypoxic respiratory failure secondary to angioedema with subsequent trach placement 4. Diabetic nephropathy kidney function appears to be at baseline 5. Hypertension-blood pressure controlled, home medications continued with dose adjustment as needed 6. Depression with anxiety 7. GERD 8. Morbid obesity with BMI of 43.8 9. DVT prophylaxis SC heparin Discharge Diet: 1800 Calorie Control Diet Discharge Activity: Return to Normal Activity, May not drive while taking narcotic pain medications. Home Medications: Medications to take at Discharge Atenolol [Tenormin (beta haley)] 100 mg PO DAILY 02/20/16 Buspirone HCl 15 mg PO TID 02/20/16 Fluoxetine HCl 40 mg PO DAILY 02/20/16 Spironolactone [Aldactone] 50 mg PO DAILY 02/20/16 Epinephrine [Epi Pen] 0.3 mg IM X1 PRN #1 syringe 04/01/16 Famotidine [Pepcid] 40 mg PO DAILY #5 tablet 04/01/16 Loratadine [Claritin] 10 mg PO DAILY 12/16/16 Doxycycline 100 mg PO BID #14 capsule 02/25/17 GlyBURIDE [Micronase] 2.5 mg PO DAILY 02/25/17 Guaifenesin [Mucinex] 1,200 mg PO BID #14 tablet 02/25/17 PredniSONE 40 mg PO DAILY@0800 #10 tablet 02/25/17 Trazodone HCl 100 mg PO QHS 02/25/17 Following Prescrptions Were Given to Patient: Doxycycline 100 mg PO BID #14 capsule Guaifenesin [Mucinex] 1,200 mg PO BID #14 tablet PredniSONE 40 mg PO DAILY@0800 #10 tablet Primary Care Physician: Joaquim Burks DO [Primary Care Provider] - Please follow up with your Primary Care Physician in: in 5-7 days Disposition: Home Minutes spent on discharge:: 35 Patient Condition:: Stable Meaningful Use Info Meaningful Use Diagnoses (Choose all that apply): None applicable
[2017-02-25] MEDS: Famotidine 20 MG Tablet 40 MG PO (10:16)
[2017-02-25] MEDS: guaiFENesin 1,200 MG Tablet 1200 MG PO (10:16)
[2017-02-25] MEDS: FLUoxetine 20 MG Capsule 40 MG PO (10:16)
[2017-02-25] MEDS: Loratadine 10 MG Tablet PO (10:16)
[2017-02-25] MEDS: Atenolol 100 MG Tablet PO (10:17)
[2017-02-25 10:31] LABS: Bedside Glucose 359 mg/dL (70-110)
--- NOTE | 2017-02-25 11:34 | NURSING ---
Dr. Beck in to see patient this AM and encouraged patient to stay one more day to ensure she is better. Pt refused- she states that her grandson is coming to stay with her and she must pay her rent today- because it is the first and the holiday weekend will make it too late.
== END 2017-02-25 10:37 | disposition home or self-care (01) ==
PROVIDERS: Admitting Provider Family Medicine; Emergency Provider Emergency Medicine; Family Provider Student in an Organized Health Care Education/Training Program; PCP Student in an Organized Health Care Education/Training Program; Visit Provider Internal Medicine
DX: J44.1 Chronic obstructive pulmonary disease with (acute) exacerbation (principal); N17.9 Acute kidney failure, unspecified; E78.5 Hyperlipidemia, unspecified; E66.01 Morbid (severe) obesity due to excess calories; F41.9 Anxiety disorder, unspecified; F32.9 Major depressive disorder, single episode, unspecified; I10 Essential (primary) hypertension; E11.65 Type 2 diabetes mellitus with hyperglycemia; K21.9 Gastro-esophageal reflux disease without esophagitis; Z93.0 Tracheostomy status; Z71.3 Dietary counseling and surveillance; Z68.41 Body mass index [BMI] 40.0-44.9, adult; Z79.899 Other long term (current) drug therapy; Z79.84 Long term (current) use of oral hypoglycemic drugs; Z87.891 Personal history of nicotine dependence; J96.10 Chronic respiratory failure, unspecified whether with hypoxia or hypercapnia
CPT/HCPCS: 36415; 71010; 80048 ×2; 82962; 83605 ×2; 84484 ×2; 85025 ×2; 87633; 93005 ×2; 94640 ×2; 94667; 96361; 96374; 96375; 96376; 99285; 99218; J7030; A4216; G0378

== ENCOUNTER → 2017-12-21 12:47 | Outpatient (CLI) | payer MEDICARE, SELFPAY ==
--- NOTE | 2017-12-21 12:52 | RAD_ITS ---
STUDY: SWALLOWING STUDY REASON FOR EXAM: Female, 52 years old. Dysphagia. TECHNIQUE: The examination was performed with Speech Pathology in attendance. Under fluoroscopic observation, the patient ingested thin barium, thick barium, barium pudding, and barium coated cracker. FLUOROSCOPY TIME: 1:20 minutes/seconds. 1355 fluoroscopic images were obtained. RADIOLOGIST INVOLVEMENT: Radiologist was present and providing direct supervision. COMPARISON: None. FINDINGS: The following was observed during swallowing of the various mixtures of barium: Thin Barium: Penetration with evacuation with ingestion of thin liquids. Thick Barium: Penetration with evacuation with ingestion of nectar thickened liquids. Barium Pudding: There was no evidence of aspiration or laryngeal penetration. Barium Coated Cracker: There was no evidence of aspiration or laryngeal penetration. The patient ingested a 12 mm tablet of barium without any difficulty. RAD/Swallowing Function w/Video IMPRESSION: Penetration with evacuation with ingestion of the thin liquids and nectar thickened liquids. The swallow study findings were discussed with the patient by the speech pathologist at the conclusion of the examination. Please see speech pathology report for more information and recommendations. Electronically Signed: Kodak David MD at 13:50 EDT Tel [phone], Service support ,
--- NOTE | 2017-12-21 13:00 | SP.MBSS_ITS ---
PRIMARY / SECONDARY DIAGNOSIS: dysphagia (R13.10) REFERRING PHYSICIAN: Chelsey Hodges CNP CURRENT DIET: regular textures, thin liquids DENTITION: WFL MENTAL STATUS: WNL RESPIRATORY STATUS: O2 via room air; tracheostomy tube in place PREVIOUS MODIFIED BARIUM SWALLOW STUDY: 05/10/2016 MBS revealed mild pharyngeal dysphagia with intermittent transient penetration with complete ejection during thin liquid trials. REASON FOR REFERRAL: Patient is a 52 year old female referred for a modified barium swallow (MBS) study to objectively assess the Patients oropharyngeal swallow function under fluoroscopy secondary to reported globus sensation / sensation of pharyngeal dysmotility during intake of solid textures. MEDICAL HISTORY: Chronic obstructive pulmonary disease, status post tracheostomy tube placement (dependent), gastroesophageal reflux disease, morbid obesity, anxiety and depression, angioedema, type II diabetes mellitus, hyperlipidemia, hypertension STUDY FINDINGS: Patient participated in a Modified Barium Swallow (MBS) study on 12/21/2017. Dr. David was the radiologist present for this evaluation. This study was recorded in the lateral view and images were sent to PACs for storage. The following consistencies were presented to this patient for analysis of oropharyngeal swallow function: thin liquids, nectar thickened liquids, pudding , and a regular textured, Lisa Doone cookie. Results of the MBS are as follows: PENETRATION / ASPIRATION SCALE (JALLOH): 1 = does not enter airway 2 = enters airway/above vocal folds/ejected 3 = enters airway/above vocal folds/not ejected 4 = enters airway/contacts vocal folds/ejected 5 = enters airway/contacts vocal folds/not ejected 6 = enters airway/below vocal folds/ejected 7 = enters airway/below vocal folds/not ejected despite effort 8 = enters airway/below vocal folds/no effort PENETRATION / ASPIRATION SCALE (SCORE): Thin liquids via cup (single sip): 2 Thin liquids via cup (sequential swallows): 4 Thin liquids via cup (single sip): 4 Thin liquids via cup (single sip): 2 Thin liquids via straw (single sip): 2 Thin liquids via straw (sequential swallows): 2 [place] thickened liquids via cup (single sip): 4 [place] thickened liquids via cup (single sip): 2 Pudding via spoon: 1 Regular textured cookie: 1 Thin liquids via straw (with 12mm barium tablet): 2 IMPRESSION: DIAGNOSIS: mild to moderate pharyngeal dysphagia (R13.13) ORAL PHASE CHARACTERIZED BY: LABIAL SEAL: no labial escape TONGUE CONTROL DURING BOLUS MANIPULATION: cohesive bolus between tongue to palatal seal BOLUS PREPARATION / MASTICATION: timely and efficient chewing and mashing BOLUS TRANSPORT / LINGUAL MOTION: brisk tongue motion ORAL RESIDUE: trace residue lining oral structures PHARYNGEAL PHASE CHARACTERIZED BY: INITIATION OF PHARYNGEAL SWALLOW: bolus head at posterior laryngeal surface of epiglottis at first hyoid excursion SOFT PALATE ELEVATION: no bolus between soft palate and pharyngeal wall LARYNGEAL ELEVATION: partial superior movement of thyroid cartilage/partial approximation of arytenoids cartilage to epiglottic petiole ANTERIOR HYOID EXCURSION: partial anterior movement EPIGLOTTIC MOVEMENT: partial epiglottic inversion LARYNGEAL VESTIBULE CLOSURE AT HEIGHT OF SWALLOW: incomplete laryngeal vestibule closure with narrow column of air/contrast in laryngeal vestibule PHARYNGEAL STRIPPING WAVE: pharyngeal stripping wave present / diminished PHARYNGOESOPHAGEAL SEGMENT OPENING: partial distension and partial duration; partial obstruction of flow TONGUE BASE RETRACTION: trace column of contrast between tongue base and posterior pharyngeal wall PHARYNGEAL RESIDUE: collection of residue within or on pharyngeal structures during trials of more viscous textures ESOPHAGEAL PHASE CHARACTERIZED BY: ESOPHAGEAL BOLUS CLEARANCE IN THE UPRIGHT POSITION: complete clearance; esophageal coating EFFECTS OF TREATMENT STRATEGIES ATTEMPTED: Chin tuck posture = ineffective 3 second prep = ineffective Reduced bolus size = ineffective Removal of straw = ineffective DIET TEXTURE RECOMMENDATIONS: Will recommend a regular-soft textured, thin liquid diet. COMPENSATORY STRATEGIES RECOMMENDED: Reduced bolus volume, reduced rate of intake, seated upright at 90 degrees during PO intake, remain upright for 30-60 minutes post meal (GERD precaution), medications with applesauce, INTERPRETATION OF RESULTS: Patient presents with mild to moderate pharyngeal dysphagia (R13.13) likely secondary to chronic obstructive pulmonary disease status post tracheostomy tube placement. Pharyngeal phase primarily marked by delayed pharyngeal swallow onset timing resulting in suboptimal bolus location upon swallow onset; and reduced closure of the airway during deglutition resulting in persistent penetration with consistent complete ejection regardless of bolus volume adjustments or posture implementation. Swallow function likely sufficient to protect airway based on current results, though would consider this Patient to be at high risk of aspiration if combined with a significant medical complication that would require hospitalization. RECOMMENDATIONS: Patient able to comprehend and express recommended intake precautions detailed above with sufficient detail to suggest high likelihood of compliance. Provided brief overview of signs and symptoms of aspiration, with recommendations for the Patient to further discuss symptoms with PCP. No further skilled speech- language services warranted at this time targeting dysphagia. ADDITIONAL COMMENTS/RECOMMENDATIONS: Results and recommendations were discussed with the Patient immediately following MBS completion, with the Patient verbalizing understanding and agreement with all recommendations and education provided. IMAGE COUNT: [id number] G-CODES: SWALLOWING [id number] Current Status: CI SWALLOWING [id number] Goal Status: CI SWALLOWING [id number] Discharge Status: CI
== END ==
PROVIDERS: Family Provider Student in an Organized Health Care Education/Training Program; PCP Student in an Organized Health Care Education/Training Program; Visit Provider Nurse Practitioner Adult Health
DX: R13.10 Dysphagia, unspecified (principal)
CPT/HCPCS: 74230; 92611; G8996; G8997; G8998

== ENCOUNTER 2018-01-16 21:19 | Observation (INO) | payer MEDICARE, SELFPAY ==
[2018-01-16 21:20] VITALS: BP 144/83; PULSE 84; RESP 16; TEMP 36.8; O2SAT 93; BMI 53.8
--- NOTE | 2018-01-16 21:57 | EKG12_ITS ---
Test Reason : CP Blood Pressure : / mmHG Vent. Rate : 076 BPM Atrial Rate : 076 BPM P-R Int : 146 ms QRS Dur : 090 ms QT Int : 396 ms P-R-T Axes : 028 -09 051 degrees QTc Int : 445 ms Normal sinus rhythm Possible Inferior infarct , age undetermined Abnormal ECG Confirmed by LILLIAN LEPE, JUWAN ([id number]), book or script editor COLLINS QUEZADA ([id number]) on 01/20/2018 1:12:20 PM Referred By: GARY Confirmed By:JUWAN SNYDER MD
[2018-01-16 22:00] VITALS: PULSE 71; RESP 16
[2018-01-16] MEDS: 0.9% Normal Saline 1,000 ML 150 ML IV (22:04)
[2018-01-16] MEDS: Ipratropium/Albuterol Sulfate 3 ML AMPUL.NEB INHALATION (22:04)
[2018-01-16] MEDS: MethylPREDNISolone 125 MG/2 ML Vial IV (22:04)
--- NOTE | 2018-01-16 22:15 | RAD_ITS ---
STUDY: X-RAY CHEST REASON FOR EXAM: Female, 52 years old. Weakness, dizziness, shortness of breath TECHNIQUE: Single AP portable view of the chest. COMPARISON: 06/19/2017. FINDINGS: The lungs are clear and expanded. There is no demonstrated pleural abnormality. Normal size heart. Normal mediastinum and christy. Normal visualized pulmonary arteries. Normal visualized aortic arch and descending thoracic aorta. Normal visualized thoracic spine. Normal visualized ribs, clavicles, and shoulders. There is no demonstrated abnormality of the visualized soft tissue structures of the upper abdomen. RAD/Chest 1 View (Portable) IMPRESSION: No acute cardiopulmonary disease. Electronically Signed: Jun Javier DO at 22:43 EDT , Service support ,
[2018-01-16 22:25] LABS: Absolute Lymphocyte Count 3.03 X10^3/ul (0.83-4.51); Basophil# 0.06 X10^3/uL; Basophil% 0.7 % (0-1); Eosinophil# 0.31 X10^3/uL; Eosinophils% 3.4 % (0-5); Hemoglobin 14.2 g/dl (12.0-15.0); Lymphocyte # 3.03 X10^3/ul (4.0); Mean Corp Hgb Conc 34.6 g/gl (32-36); Mean Corpuscular Hgb 30.8 pg (27.0-32.0); Mean Corpuscular Volume 88.9 fL (81-99); Mean Platelet Vol. 11.4 fl (6.2-12.0); Monocyte# 0.77 X10^3/uL; Monocyte% 8.4 % (0-10); Neutrophil # 4.95 X10^3/uL (2.7-7.7); Neutrophil % 53.8 % (47-70); Platelet Count 207 K/mm3 (150-450); RBC Distribution Width CV 13.1 % (11.6-14.6); RBC Distribution Width SD 42.4 fl (35.1-43.9); Red Blood Count 4.61 M/mm3 (4.2-5.4); White Blood Count 9.2 K/mm3 (4.4-11.0)
[2018-01-16 22:33] LABS: Differential Indicated SCAN CRITERIA MET; POSITIVE COUNT NO; POSITIVE DIFFERENTIAL NO; POSITIVE MORPHOLOGY YES
[2018-01-16 22:37] LABS: Anion Gap 10 (5-15); BUN 19 mg/dL (7-18); BUN/Creat Ratio 18.4 RATIO (10-20); Calcium,Total 8.4 mg/dL (8.5-10.1); Chloride 103 mmol/L (98-107); Creatinine, Serum 1.03 mg/dL (0.55-1.02); EST Glomerular Filtration Rate 60 mL/min (>60); Est Glom Filt Rate - Afr Amer 72 mL/min (>60); Estimated Creatinine Clearance 45.89 ml/min; Glucose 227 mg/dL (74-106); Potassium 3.8 mmol/L (3.5-5.1); Sodium Level 134 mmol/L (136-145)
[2018-01-16 22:48] LABS: Bacteria 0 SEEN /hpf (None Seen); Mucous, Urine 0 SEEN /hpf (<or=2+); Red Blood Cells-Urine 0 SEEN /hpf (0-5)
[2018-01-16 22:57] LABS: Color, Urine Yellow (Yellow); Glucose, Dipstick Normal (Normal); Ketone-Dipstick Negative (Negative); Leukocyte Esterase-Dipstick 25 /ul (Negative); Nitrite-Dipstick Negative (Negative); Occult Blood-Urine 10 /ul (Negative); Protein-Dipstick 15 mg/dl (Negative); Specific Gravity, Urine 1.025 (1.002-1.030); Urine Bilirubin Dipstick Negative (Negative); Urine Clarity Clear (Clear); Urine Urobilinogen Normal (Normal)
[2018-01-16 23:05] LABS: Squamous Epithelial Cells - UA 5-10 SEEN /hpf (5-10)
[2018-01-16 23:06] LABS: White Blood Cells 0-5 SEEN /hpf (0-5)
[2018-01-16 23:25] VITALS: BP 165/99; BP 169/99; PULSE 73; RESP 16; O2SAT 94
--- NOTE | 2018-01-16 23:28 | ED.VISSUMM ---
- ER Visit Summary Date of Service: 01/16/18 Chief Complaint: [Shortness of breath] History of Present Illness: The patient is a 52 F [presents the emergency department complaint of shortness of breath times last 2 days. Patient planes of a cough with yellow sputum production at times. Patient also describes a sharp stabbing chest pain intermittently over the last 2 days on both sides of her chest. Patient denies any radiation of the pain. Patient's not had any nausea or vomiting. Patient denies fevers although she has had some chills and sweats. Patient does have a history of tracheostomy due to frequent angioedema attacks. Patient also has complaint of frequent heartburn like symptoms. Also has rash under both breasts.] Patient does have history of COPD, diabetes, hypertension, and angioedema. Patient not currently having chest pain. Physical Examination: [HEENT-PERRLA, EOMI. Cranial nerves II through XII grossly intact. TMs clear. Mucous membranes moist. No adenopathy. Patient has tracheostomy in place. No angioedema of the tongue or oropharynx noted. Cardiovascular-regular rate and rhythm without murmur or ectopy Lungs-slightly diminished in the bases with expiratory wheezes throughout. No significant tachypnea. No accessory muscle use or retractions. Patient does have candidal rash under both breasts. Abdomen-normoactive bowel sounds, soft, nontender, no rebound or rigidity, no peritoneal signs. Extremities-intact ?4, normal range of motion, normal pulses, atraumatic]. Negative Homans sign bilaterally. Test Results: [EKG obtained on arrival showed a sinus rhythm with a ventricular rate of 76 bpm with old inferior wall infarct noted. CBC with differential showed a white count of 9.2, hemoglobin 14, hematocrit 41, platelets 207. Chemistries unremarkable. Glucose was elevated to 27. BUN 19 and creatinine was 1.03. Urinalysis unremarkable. Troponin was less than 0.015. Chest x-ray showed nothing acute.] Emergency Department Course and Treatment: [Patient was given a DuoNeb aerosol and given Solu-Medrol 125 mill grams IV. Patient also started to complain of some right-sided low back discomfort and she received morphine 4 mg IV and Zofran 4 mg IV.] Treatment Plan: [Admit] Disposition: [Admit] Impression: [COPD exacerbation Generalized weakness] This note was generated with Dragon dictation software. It may contain incorrect words, spelling, and punctuation that were not noted in review of the chart prior to signing ED Disposition - Plan for ED Patient: Chief Complaint: Weakness Referrals: Joaquim Burks DO [Primary Care Provider] -
[2018-01-16] MEDS: Ondansetron 4 MG/2 ML Vial IV (23:40)
[2018-01-16] MEDS: Morphine 4 MG/ML Syringe IV (23:40)
--- NOTE | 2018-01-16 23:44 | HP.PCM_ITS ---
Problem List (1) Difficulty breathing Status: Acute (2) Tracheostomy dependence Status: Chronic (3) Anxiety Status: Chronic (4) GERD (gastroesophageal reflux disease) Status: Chronic Qualifiers: (5) COPD exacerbation Status: Suspected (6) Morbid obesity Status: Chronic (7) Type II diabetes mellitus Status: Chronic Qualifiers: (8) Hyperlipidemia Status: Chronic Qualifiers: (9) Hypertension Status: Chronic Qualifiers: History of Present Illness Date of Admission: 01/16/18 Chief Complaint: shortness of breath The patient is a 52 year old female patient with a history of angioedema that caused her to receive a tracheostomy two years ago emergently in the ER. She has anxiety,depression,obesity,COPD and chronic back pain. She complains of worsening shortness of breath over the past three days. She feels like her lungs are on fire when she goes outside. She complains of productive yellow sputum. O2 saturation on room air is 93%. She has audible wheezes. She denies chest pain. Blood count is within normal limits. Due to tracheostomy and COPD she will be admitted for overnight observation. She also complains of back pain that is chronic and requested pain medication for this. Past Medical History Past Medical History (Chronic Problems): Chronic Problems Tracheostomy dependence (Chronic) Anxiety (Chronic) GERD (gastroesophageal reflux disease) (Chronic) COPD (chronic obstructive pulmonary disease) (Chronic) Morbid obesity (Chronic) Anxiety and depression (Chronic) Status post tracheostomy (Chronic) Depression (Chronic) Angioedema (Chronic) Type II diabetes mellitus (Chronic) Hyperlipidemia (Chronic) Hypertension (Chronic) Allergies bupropion [From Wellbutrin] Allergy (Verified 01/16/18 21:32) Angioedema lisinopril Allergy (Verified 01/16/18 21:32) Angioedema sulfamethoxazole [From Bactrim] Allergy (Verified 01/16/18 21:32) Rash trimethoprim [From Bactrim] Allergy (Verified 01/16/18 21:32) Rash acetaminophen [From Vicodin] Adverse Reaction (Verified 01/16/18 21:32) Nausea/Vom/Diarrhea aspirin Adverse Reaction (Verified 01/16/18 21:32) Nausea/Vom/Diarrhea hydrocodone [From Vicodin] Adverse Reaction (Verified 01/16/18 21:32) Nausea/Vom/Diarrhea Home Medications: Ambulatory Orders Medication Instructions Recorded Atenolol [Tenormin (beta haley)] 100 mg PO DAILY 02/20/16 Fluoxetine HCl 60 mg PO DAILY 02/20/16 Spironolactone [Aldactone] 50 mg PO DAILY 02/20/16 busPIRone [Buspar] 15 mg PO TID 02/20/16 Epinephrine [Epi Pen] 0.3 mg IM X1 PRN #1 syringe 04/01/16 Loratadine [Claritin] 10 mg PO DAILY PRN 12/16/16 Trazodone HCl 200 mg PO QHS 02/25/17 Arformoterol Tartrate [Brovana] 2 ml INHALATION BID 05/25/17 Budesonide 1 inh INHALATION BID 05/25/17 Glimepiride [Amaryl] 4 mg PO DAILY 05/25/17 Omeprazole 40 mg PO DAILY 05/25/17 Tizanidine HCl 4 mg PO Q8H PRN 05/25/17 Surgical History: - - Tracheostomy, cholecystectomy, bilateral tubal ligation, NovaSure, bladder suspension surgery. 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 Denies: Sputum production Gastrointestinal: Denies: Abdominal Pain, Nausea, Vomiting Genitourinary: Denies: Dysuria Musculoskeletal: Denies: Joint Pain, Joint Tenderness Skin: Denies: Rash, Wounds Neurological: Denies: Numbness, Tingling, Focal weakness Psychiatric: Denies: Anxiety, Depression, Homicidal Ideations, Suicidal Ideations Hematologic/ Lymphatic: Denies: Easy Bruising, Easy Bleeding VTE Information - Inpt Only VTE Present on Admission: No VTE Mechan Device Prophylaxis: SCD's VTE Pharm Prophylaxis ordered?: No Patient Problems: Active and Suspected Problems Difficulty breathing (Acute) - Physical Exam General: Alert, Oriented x3, Cooperative HEENT: Atraumatic, Normocephalic Neck: Supple, Negative Carotid Bruits Lungs: Diminished, Wheezes Cardiovascular: Regular rate, Normal S1, Normal S2, No murmurs Abdomen: Bowel Sounds Present, Soft, Non Tender, Obese Extremities: No edema, Capillary Refill Less than 3 Seconds Skin: No rashes Musculoskeletal: No Tenderness to Palpation of Joints or Extremities Neurological: Neuro grossly intact Psych/Mental Status: Normal Affect, Appropriate Vital Signs Temp Pulse Resp BP Pulse Ox 98.2 F 73 16 169/99 H 94 01/16/18 21:20 01/16/18 23:25 01/16/18 23:25 01/16/18 23:25 01/16/18 23:25 Oxygen Delivery Method Room Air Weight: 275 lb 9.245 oz Body Mass Index (BMI) 53.8 Laboratory Tests Past 24 Hrs 01/16/18 01/16/18 01/16/18 21:43 21:45 22:34 WBC 9.2 RBC 4.61 Hgb 14.2 Hct 41.0 MCV 88.9 MCH 30.8 MCHC 34.6 RDW 13.1 RDW Differential 42.4 Plt Count 207 MPV 11.4 Immature Gran % (Auto) 0.700 Neut % (Auto) 53.8 Lymph % (Auto) 33.0 [place] % (Auto) 8.4 Eos % (Auto) 3.4 Baso % (Auto) 0.7 Absolute Neuts (auto) 5.0 Absolute Lymphs (auto) 3.03 Total Counted Not Reportable Sodium 134 L Potassium 3.8 Chloride 103 Carbon Dioxide 21.0 Anion Gap 10 BUN 19 H Creatinine 1.03 H Estim Creat Clear Calc 45.89 Est GFR (MDRD) Af Amer 72 Est GFR (MDRD) Non-Af 60 BUN/Creatinine Ratio 18.4 Glucose 227 H Calcium 8.4 L Troponin I < 0.015 Urine Color Yellow Urine Clarity Clear Urine pH 5.0 Ur Specific [place] 1.025 Urine Protein 15 H Urine Glucose (UA) Normal Urine Ketones Negative Urine Occult Blood 10 H Urine Nitrite Negative Urine Bilirubin Negative Urine Urobilinogen Normal Ur Leukocyte Esterase 25 H Urine RBC 0 SEEN Urine WBC 0-5 SEEN Ur Squamous Epith Cells 5-10 SEEN Urine Bacteria 0 SEEN Urine Mucus 0 SEEN Assessment/Plan All Active Problems Difficulty breathing (Acute) Acute pancreatitis (Acute) Upper airway obstruction (Resolved) Acute respiratory failure (Resolved) Chronic Problems Tracheostomy dependence (Chronic) Anxiety (Chronic) GERD (gastroesophageal reflux disease) (Chronic) COPD (chronic obstructive pulmonary disease) (Chronic) Morbid obesity (Chronic) Anxiety and depression (Chronic) Status post tracheostomy (Chronic) Depression (Chronic) Angioedema (Chronic) Type II diabetes mellitus (Chronic) Hyperlipidemia (Chronic) Hypertension (Chronic) Plan - admit for observation to general medical floor - duoneb inh q 4 hrs prn - levaquin 500mg IV q day - oxygen per protocol - regular diet - continue routine home medications - tylenol prn back pain - scds for DVT prophylaxis - cbc, bmp in am Code Visit OBSV E&M: 60626 Initial observation care L2
[2018-01-17 00:27] VITALS: BMI 46.0
[2018-01-17 00:28] VITALS: BMI 46.1
[2018-01-17 00:36] VITALS: BP 171/78; PULSE 69; RESP 20; TEMP 36.9; O2SAT 94
[2018-01-17] MEDS: Ipratropium/Albuterol Sulfate 3 ML AMPUL.NEB INHALATION ×2 (00:49→06:34)
[2018-01-17 00:50] VITALS: PULSE 69; RESP 18; O2SAT 92
[2018-01-17] MEDS: traZODone 100 MG Tablet 200 MG PO (01:10)
[2018-01-17] MEDS: Acetaminophen 325 MG Tablet 650 MG PO (01:10)
[2018-01-17] MEDS: busPIRone 15 MG TABLET PO ×2 (01:10→06:04)
[2018-01-17] MEDS: levoFLOXacin IV 500 MG/100 ML BAG 100 MG IV (01:11)
[2018-01-17 01:30] LABS: Bedside Glucose 202 mg/dL (70-110)
--- NOTE | 2018-01-17 02:02 | CPS ---
This patient wears a cool aerosol at night. Cool aerosol applied. Jayde CERTIFIED JUV[employer]ILE [employer]ATION OFFICER
[2018-01-17] MEDS: tiZANidine HCl 2 MG Tablet 4 MG PO (03:10)
[2018-01-17 06:06] VITALS: BP 153/74; PULSE 69; RESP 18; TEMP 36.7; O2SAT 95
[2018-01-17 06:17] LABS: Absolute Lymphocyte Count 1.11 X10^3/ul (0.83-4.51); Absolute Neutrophil Count 5.4 X10^3/uL (2.0-7.7); Basophil# 0.03 X10^3/uL; Basophil% 0.4 % (0-1); Eosinophil# 0.01 X10^3/uL; Eosinophils% 0.1 % (0-5); Hematocrit 41.2 % (37-47); Hemoglobin 13.6 g/dl (12.0-15.0); Lymphocyte # 1.11 X10^3/ul (4.0); Lymphocyte % 16.5 % (19-41); Mean Corpuscular Hgb 29.7 pg (27.0-32.0); Mean Platelet Vol. 11.3 fl (6.2-12.0); Monocyte# 0.11 X10^3/uL; Monocyte% 1.6 % (0-10); Neutrophil # 5.44 X10^3/uL (2.7-7.7); Platelet Count 169 K/mm3 (150-450); RBC Distribution Width CV 13.2 % (11.6-14.6); RBC Distribution Width SD 42.7 fl (35.1-43.9); Red Blood Count 4.58 M/mm3 (4.2-5.4); White Blood Count 6.7 K/mm3 (4.4-11.0)
[2018-01-17 06:21] LABS: POSITIVE COUNT NO; POSITIVE DIFFERENTIAL NO; POSITIVE MORPHOLOGY NO
[2018-01-17 06:26] LABS: AST(SGOT) 41 U/L (15-37); Alanine Aminotransfer ALT/SGPT 42 U/L (13-56); Albumin, Serum 3.5 g/dL (3.2-5.0); Alkaline Phosphatase 115 U/L (45-117); Anion Gap 11 (5-15); BUN 18 mg/dL (7-18); BUN/Creat Ratio 19.4 RATIO (10-20); Calcium,Total 8.8 mg/dL (8.5-10.1); Chloride 102 mmol/L (98-107); Creatinine, Serum 0.93 mg/dL (0.55-1.02); EST Glomerular Filtration Rate 67 mL/min (>60); Est Glom Filt Rate - Afr Amer 81 mL/min (>60); Estimated Creatinine Clearance 63.67 ml/min; Globulin 3.5 g/dL (2.2-4.2); Glucose 289 mg/dL (74-106); Potassium 4.3 mmol/L (3.5-5.1); Sodium Level 136 mmol/L (136-145)
[2018-01-17 06:34] VITALS: PULSE 70; RESP 16
[2018-01-17 10:00] VITALS: BP 151/76; PULSE 72; RESP 18; TEMP 36.8; O2SAT 98
[2018-01-17] MEDS: Glimepiride 4 MG Tablet PO (10:04)
[2018-01-17] MEDS: Atenolol 100 MG Tablet PO (10:04)
[2018-01-17] MEDS: FLUoxetine 20 MG Capsule 60 MG PO (10:04)
[2018-01-17] MEDS: Pantoprazole Sodium 40 MG Tablet PO (10:05)
[2018-01-17] MEDS: Spironolactone 50 MG Tablet PO (10:05)
[2018-01-17 10:07] VITALS: PULSE 72
--- NOTE | 2018-01-17 10:52 | DCINST_ITS ---
- Discharge Diagnoses Current Active Problems: Current Active and Chronic Problems Difficulty breathing (Acute) You will use the following diet at home:: Calorie/Carbohydrate Controlled ( specify 1200, 1400, etc) Discharge Activity: Return to Normal Activity Call your doctor if you observe: Shortness of breath, Dizziness, Fainting spells , Chest pain Allergies/Adverse Reactions: Allergies bupropion [From Wellbutrin] Allergy (Verified 01/16/18 21:32) Angioedema lisinopril Allergy (Verified 01/16/18 21:32) Angioedema sulfamethoxazole [From Bactrim] Allergy (Verified 01/16/18 21:32) Rash trimethoprim [From Bactrim] Allergy (Verified 01/16/18 21:32) Rash acetaminophen [From Vicodin] Adverse Reaction (Verified 01/16/18 21:32) Nausea/Vom/Diarrhea aspirin Adverse Reaction (Verified 01/16/18 21:32) Nausea/Vom/Diarrhea hydrocodone [From Vicodin] Adverse Reaction (Verified 01/16/18 21:32) Nausea/Vom/Diarrhea Medications to take at Discharge Atenolol [Tenormin (beta haley)] 100 mg PO DAILY 02/20/16 Fluoxetine HCl 60 mg PO DAILY 02/20/16 Spironolactone [Aldactone] 50 mg PO DAILY 02/20/16 busPIRone [Buspar] 15 mg PO TID 02/20/16 Epinephrine [Epi Pen] 0.3 mg IM X1 PRN #1 syringe 04/01/16 Loratadine [Claritin] 10 mg PO DAILY PRN 12/16/16 Trazodone HCl 200 mg PO QHS 02/25/17 Arformoterol Tartrate [Brovana] 2 ml INHALATION BID 05/25/17 Budesonide 1 inh INHALATION BID 05/25/17 Glimepiride [Amaryl] 4 mg PO DAILY 05/25/17 Omeprazole 40 mg PO DAILY 05/25/17 Tizanidine HCl 4 mg PO Q8H PRN 05/25/17 Naproxen 500 mg PO BID 01/17/18 Prednisone See Taper PO DAILY #30 tab 01/17/18 The following prescriptions were given: Prednisone See Taper PO DAILY #30 tab Primary Care Physician: Joaquim Burks DO [Primary Care Provider] - Please follow up with your Primary Care Physician in: 1 Week Test Results: Test results from this visit will be discussed in further detail at your follow- up appointment, if applicable. Please Follow Up With: Jericho Quiroz MD When: As scheduled Proposed Discharge Date: 01/17/18
--- NOTE | 2018-01-17 11:09 | DS.PCM_ITS ---
Discharge Date and Diagnosis Date of Admission: 01/16/18 Date of Discharge: 01/17/18 - Primary Discharge Diagnosis Active and Suspected Problems 1. Acute exacerbation of COPD 2. Status post tracheostomy secondary to history of angioedema-stable 3. Type 2 diabetes mellitus 4. Hypertension 5. Hyperlipidemia 6. Anxiety/depression 7. Morbid obesity - Secondary Discharge Diagnosis Chronic Problems Tracheostomy dependence (Chronic) Anxiety (Chronic) GERD (gastroesophageal reflux disease) (Chronic) COPD (chronic obstructive pulmonary disease) (Chronic) Morbid obesity (Chronic) Anxiety and depression (Chronic) Status post tracheostomy (Chronic) Depression (Chronic) Angioedema (Chronic) Type II diabetes mellitus (Chronic) Hyperlipidemia (Chronic) Hypertension (Chronic) Hospital Course and Treatment Imaging Results: Diagnostic Data Chest X-Ray 01/16/18 22:15 IMPRESSION: No acute cardiopulmonary disease. Electronically Signed: Jun Javier DO at 22:43 EDT , Service support , Operations: None Procedures: None Summary of Care Provided: The patient is a 52 year old F admitted 01/16/2018 due to shortness of breath. She has a past medical history of COPD, anxiety, depression, chronic back pain, obesity, status post trach secondary to angioedema. Patient admitted for COPD exacerbation. She was not noted to be hypoxic. Lab work unremarkable. Urinalysis unremarkable. Troponin negative. Chest x-ray without acute process. Patient denies cough, fever, chills. Breathing improved. Patient will be discharged on prednisone taper. She complains of ongoing chronic back pain which is not relieved by home naproxen regimen. Encouraged patient to discuss this further with primary care physician for further evaluation workup. Continue home inhaler regimen. Follow-up with primary care physician in 1 week. Follow-up with pulmonary medicine as scheduled. General: Alert, Oriented x3, Cooperative HEENT: Atraumatic, Normocephalic Neck: Supple, Negative Carotid Bruits Lungs: Diminished, Wheezes Cardiovascular: Regular rate, Normal S1, Normal S2, No murmurs Abdomen: Bowel Sounds Present, Soft, Non Tender, Obese Extremities: No edema, Capillary Refill Less than 3 Seconds Skin: No rashes Musculoskeletal: No Tenderness to Palpation of Joints or Extremities Neurological: Neuro grossly intact Psych/Mental Status: Normal Affect, Appropriate Patient seen exam prior to discharge. Physical assessment as noted above. Patient stable for discharge home with the follow-up recommendations as noted above. This patient was seen by JOEY Shay under the supervision of Dr. Goncalves. Discharge Diet: 1800 Calorie Control Diet, Carb Control Diet Discharge Activity: Return to Normal Activity Call your doctor if you observe: Shortness of breath, Dizziness, Fainting spells , Chest pain Home Medications: Medications to take at Discharge Atenolol [Tenormin (beta haley)] 100 mg PO DAILY 02/20/16 Fluoxetine HCl 60 mg PO DAILY 02/20/16 Spironolactone [Aldactone] 50 mg PO DAILY 02/20/16 busPIRone [Buspar] 15 mg PO TID 02/20/16 Epinephrine [Epi Pen] 0.3 mg IM X1 PRN #1 syringe 04/01/16 Loratadine [Claritin] 10 mg PO DAILY PRN 12/16/16 Trazodone HCl 200 mg PO QHS 02/25/17 Arformoterol Tartrate [Brovana] 2 ml INHALATION BID 05/25/17 Budesonide 1 inh INHALATION BID 05/25/17 Glimepiride [Amaryl] 4 mg PO DAILY 05/25/17 Omeprazole 40 mg PO DAILY 05/25/17 Tizanidine HCl 4 mg PO Q8H PRN 05/25/17 Naproxen 500 mg PO BID 01/17/18 Prednisone See Taper PO DAILY #30 tab 01/17/18 Following Prescrptions Were Given to Patient: Prednisone See Taper PO DAILY #30 tab Primary Care Physician: Joaquim Burks DO [Primary Care Provider] - Please follow up with your Primary Care Physician in: 1 Week Please Follow Up With: Jericho Quiroz MD When: As scheduled Disposition: Home Minutes spent on discharge:: 35 Patient Condition:: Stable Medical Necessity - Tobacco Use Smoking Status: Former smoker Meaningful Use Info Meaningful Use Diagnoses (Choose all that apply): None applicable
== END 2018-01-17 11:19 | disposition home or self-care (01) ==
LOC: ED 22:11 → MS3 01-17 00:02
PROVIDERS: Admitting Provider Family Medicine; Emergency Provider Emergency Medicine; Family Provider Student in an Organized Health Care Education/Training Program; PCP Student in an Organized Health Care Education/Training Program; Visit Provider Internal Medicine
DX: J44.1 Chronic obstructive pulmonary disease with (acute) exacerbation (principal); E11.9 Type 2 diabetes mellitus without complications; I10 Essential (primary) hypertension; E78.5 Hyperlipidemia, unspecified; F41.9 Anxiety disorder, unspecified; E66.01 Morbid (severe) obesity due to excess calories; K21.9 Gastro-esophageal reflux disease without esophagitis; F32.9 Major depressive disorder, single episode, unspecified; Z79.899 Other long term (current) drug therapy; Z68.42 Body mass index [BMI] 45.0-49.9, adult; Z71.3 Dietary counseling and surveillance; Z93.0 Tracheostomy status; Z87.891 Personal history of nicotine dependence
CPT/HCPCS: 36415; 71045; 80048; 80053; 81001; 82962; 84484; 85025; 93005; 94640; 96361; 96365; 96366; 96375; 99218; 99283; J7030; A4216; G0378; J2405

== ENCOUNTER 2018-01-23 18:31 | Emergency (ER) | payer MEDICARE, SELFPAY ==
[2018-01-23 18:34] VITALS: BP 151/75; PULSE 75; PULSE 77; RESP 18; TEMP 37.1; O2SAT 94; BMI 46.5
--- NOTE | 2018-01-23 18:46 | EKG12_ITS ---
Test Reason : SOB/CHEST TIGHTNESS Blood Pressure : / mmHG Vent. Rate : 063 BPM Atrial Rate : 063 BPM P-R Int : 138 ms QRS Dur : 082 ms QT Int : 388 ms P-R-T Axes : 019 -07 067 degrees QTc Int : 397 ms Normal sinus rhythm Inferior infarct , age undetermined , cannot be excluded Abnormal ECG Confirmed by LILLIAN LEPE, JUWAN ([id number]), content editor COLLINS QUEZADA ([id number]) on 01/26/2018 11:53:30 AM Referred By: GIBSON Confirmed By:JUWAN SNYDER MD
--- NOTE | 2018-01-23 19:40 | RAD_ITS ---
STUDY: X-RAY CHEST REASON FOR EXAM: Female, 52 years old. Feels like food is stuck TECHNIQUE: Frontal and lateral views COMPARISON: January 16, 2018. FINDINGS: Tracheostomy tube in place. The lungs are not fully expanded. There is no demonstrated pleural abnormality. Normal size heart. Normal mediastinum and christy. Normal visualized pulmonary arteries. Normal visualized aortic arch and descending thoracic aorta. Degenerative changes of the thoracic spine. Normal visualized ribs, clavicles, and shoulders. There is no demonstrated abnormality of the visualized soft tissue structures of the upper abdomen. RAD/Chest PA and Lateral IMPRESSION: Normal x-ray examination of the chest. No radio-opaque foreign body is identified. Electronically Signed: Mark Phan DO at 20:03 EDT Tel [phone], Service support ,
[2018-01-23 20:33] VITALS: BP 126/71; PULSE 66; RESP 20; O2SAT 94
--- NOTE | 2018-01-23 21:03 | ED.VISSUMM ---
- ER Visit Summary Date of Service: 01/23/18 Chief Complaint: Choking episode History of Present Illness: The patient is a 52 F presenting for evaluation secondary to choking episode. Patient has a underlying history of having recurrent angioedema and has tracheostomy. Patient reports that she was eating a hamburger today and suffered a choking episode where she was coughing significantly after she tried swallowing a hamburger and now feels as if potentially there is something stuck in her throat. Patient reports that she is able to drink water and handle her own secretions however. She reports that the episode made her cough so hard that she almost passed out. Physical Examination: Vital signs within normal limits patient is oxygenating normally 96%. Obese female no acute distress sitting comfortably in bed. Head normocephalic. Oropharynx is clear no evidence of foreign body in throat. Patient is phonating normally, is swallowing her own secretions, her tracheostomy is clean dry and intact with no abnormal sounds. Heart is regular lungs clear remainder physical otherwise unremarkable. Test Results: Chest x-ray shows no evidence of pneumonia, atelectasis, or concern for significant aspiration event. Emergency Department Course and Treatment: Patient presented secondary to a choking episodes. Patient had an x-ray that was negative, respiratory status seems normal I do not believe that she aspirated this. Patient was asked to drink some water, she coughed while she drank it but was able to handle the water as well as her own secretions. I do not believe the patient has a esophageal food impaction at this point. I believe it seems more likely that she suffered a choking episode and has some esophageal irritation secondary to that. Patient was recommended follow-up with her primary care physician. Disposition: Discharge Impression: 1. Choking episode This note was generated with [employer] dictation software. It may contain incorrect words, spelling, and punctuation that were not noted in review of the chart prior to signing ED Disposition - Plan for ED Patient: Disposition: Home or Assisted Living Chief Complaint: Foreign Body Diagnosis: Choking episode Instructions: ED Choking Spell Referrals: Joaquim Burks DO [Primary Care Provider] - 2 Days
[2018-01-23 21:23] VITALS: BP 127/99; PULSE 78; RESP 17; O2SAT 96
== END 2018-01-23 21:24 | disposition home or self-care (01) ==
PROVIDERS: Emergency Provider Emergency Medicine; Family Provider Student in an Organized Health Care Education/Training Program; PCP Student in an Organized Health Care Education/Training Program
DX: T17.928A Food in respiratory tract, part unspecified causing other injury, initial encounter (principal); X58.XXXA Exposure to other specified factors, initial encounter; Y93.9 Activity, unspecified; Y92.9 Unspecified place or not applicable; E66.9 Obesity, unspecified; Z93.0 Tracheostomy status
CPT/HCPCS: 71046; 93005; 99284

== ENCOUNTER 2018-03-24 19:02 | Emergency (ER) | payer MEDICAID, SELFPAY ==
[2018-03-24 19:03] VITALS: BP 158/83; PULSE 94; RESP 16; TEMP 36.6; O2SAT 99; BMI 44.2
--- NOTE | 2018-03-24 19:21 | ED.VISSUMM ---
- ER Visit Summary Date of Service: 03/24/18 Chief Complaint: Ear and neck discomfort History of Present Illness: The patient is a 53 F history of angioedema, [id number] diabetes, hyper tension, COPD and depression. Patient has recently had a tracheostomy that was removed approximately 1-1/2 months ago. It is closing the ostomy site but she may need surgery to completely resolve the wound. She saw Dr. Cristopher Howard in the last 1-2 weeks. Basically she did complain of some mild ear discomfort and neck discomfort. No fever. No trouble swallowing. No drainage from the ostomy site. Physical Examination: L. She does not look septic toxic or in any distress. H EENT exam posterior pharynx normal. No erythema or exudate. No swelling. No trouble swallowing. No drooling. No stridor. Dentition is intact but she does have some cavities. No gingival swelling. TMs are normal. Neck no lymphadenopathy. She is a tracheostomy site is closing. It is just below the hyoid bone. There is no signs of infection. No drainage. No redness. No tenderness. Lungs clear to auscultation bilaterally. Heart regular rate and rhythm. Abdomen soft nontender. Otherwise exam unremarkable. Test Results: None Emergency Department Course and Treatment: Neck discomfort secondary to muscular skeletal etiology. Patient needs no testing. Treatment Plan: Motrin for pain. Follow-up with her ear nose and throat doctor if there is any redness or discharge from the ostomy site. Disposition: Discharge Impression: Musculoskeletal neck pain Healing former tracheostomy site This note was generated with [employer] dictation software. It may contain incorrect words, spelling, and punctuation that were not noted in review of the chart prior to signing ED Disposition - Plan for ED Patient: Chief Complaint: General Illness Referrals: Joaquim Burks DO [Primary Care Provider] -
[2018-03-24 19:22] VITALS: BP 146/86; PULSE 87; RESP 16; O2SAT 97
--- NOTE | 2018-03-24 19:24 | ED.DCSUM_ITS ---
- ER Visit Summary Date of Service: 03/24/18 Chief Complaint: Ear and neck discomfort History of Present Illness: The patient is a 53 F history of angioedema, hed-thvnipv-myqffeovh diabetes, hyper tension, COPD and depression. Patient has recently had a tracheostomy that was removed approximately 1-1/2 months ago. It is closing the ostomy site but she may need surgery to completely resolve the wound. She saw Dr. Cristopher Howard in the last 1-2 weeks. Basically she did complain of some mild ear discomfort and neck discomfort. No fever. No trouble swallowing. No drainage from the ostomy site. Physical Examination: L. She does not look septic toxic or in any distress. H EENT exam posterior pharynx normal. No erythema or exudate. No swelling. No trouble swallowing. No drooling. No stridor. Dentition is intact but she does have some cavities. No gingival swelling. TMs are normal. Neck no lymphadenopathy. She is a tracheostomy site is closing. It is just below the hyoid bone. There is no signs of infection. No drainage. No redness. No tenderness. Lungs clear to auscultation bilaterally. Heart regular rate and rhythm. Abdomen soft nontender. Otherwise exam unremarkable. Test Results: None Emergency Department Course and Treatment: Neck discomfort secondary to muscular skeletal etiology. Patient needs no testing. Treatment Plan: Motrin for pain. Follow-up with her ear nose and throat doctor if there is any redness or discharge from the ostomy site. Disposition: Discharge Impression: Musculoskeletal neck pain Healing former tracheostomy site This note was generated with [employer] dictation software. It may contain incorrect words, spelling, and punctuation that were not noted in review of the chart prior to signing ED Disposition - Plan for ED Patient: Chief Complaint: General Illness Referrals: Joaquim Burks DO [Primary Care Provider] -
--- NOTE | 2018-03-24 19:24 | ED.DEP ---
ED Disposition - Plan for ED Patient: Disposition: Home or Assisted Living Chief Complaint: General Illness Referrals: Joaquim Burks DO [Primary Care Provider] - As Needed Cristopher Ortez MD [STAFF PHYSICIAN] - As Needed Additional Instructions: Motrin and/or Tylenol for pain. Follow-up with Dr. Cristopher Howard if redness, drainage or swelling from the tracheostomy site.
== END 2018-03-24 19:30 | disposition home or self-care (01) ==
PROVIDERS: Emergency Provider Emergency Medicine; Family Provider Student in an Organized Health Care Education/Training Program; PCP Student in an Organized Health Care Education/Training Program
DX: M54.2 Cervicalgia (principal); Z98.890 Other specified postprocedural states; K02.9 Dental caries, unspecified; E11.9 Type 2 diabetes mellitus without complications; I10 Essential (primary) hypertension; J44.9 Chronic obstructive pulmonary disease, unspecified; F32.9 Major depressive disorder, single episode, unspecified; Z79.84 Long term (current) use of oral hypoglycemic drugs; Z79.899 Other long term (current) drug therapy
CPT/HCPCS: 99282

== ENCOUNTER 2018-04-18 23:49 | Observation (INO) | payer MEDICARE, SELFPAY ==
[2018-04-18 23:51] VITALS: BP 211/103; PULSE 120; RESP 18; TEMP 36.8; O2SAT 93; BMI 45.6
[2018-04-19] VITALS (13 sets, daily range): BP systolic 121–165; BP diastolic 57–113; PULSE 58–106; RESP 12–18; TEMP 36.3–36.8; O2SAT 90–95; BMI 44.0
--- NOTE | 2018-04-19 00:04 | EKG12_ITS ---
Test Reason : ANXIETY Blood Pressure : / mmHG Vent. Rate : 108 BPM Atrial Rate : 108 BPM P-R Int : 154 ms QRS Dur : 080 ms QT Int : 338 ms P-R-T Axes : 031 -20 084 degrees QTc Int : 452 ms Sinus tachycardia Minimal voltage criteria for LVH, may be normal variant Inferior infarct , age undetermined Abnormal ECG Confirmed by LILLIAN LEPE, JUWAN ([id number]), proposal editor COLLINS QUEZADA ([id number]) on 04/21/2018 1:14:59 PM Referred By: GARY Confirmed By:JUWAN SNYDER MD
--- NOTE | 2018-04-19 00:04 | RAD_ITS ---
STUDY: X-RAY CHEST REASON FOR EXAM: Female, 53 years old. Anxiety for days. Anxiety attack tonight. Shaky and chest pain. TECHNIQUE: Frontal and lateral views of the chest. COMPARISON: 01/24/2016. FINDINGS: The lungs are clear and expanded. There is no demonstrated pleural abnormality. Normal size heart. Normal mediastinum and christy. Normal visualized pulmonary arteries. Normal visualized aortic arch and descending thoracic aorta. There are multilevel degenerative changes of the visualized thoracic spine. Normal visualized ribs, clavicles, and shoulders. There is no demonstrated abnormality of the visualized soft tissue structures of the upper abdomen. RAD/Chest PA and Lateral IMPRESSION: No evidence for acute cardiopulmonary pathology. Electronically Signed: Alex Askew MD at 0:33 EDT , Service support ,
[2018-04-19 00:06] LABS: Bedside Glucose 189 mg/dL (70-110)
[2018-04-19] MEDS: LORazepam 2 MG/ML Syringe 1 MG IV (00:14)
[2018-04-19 00:20] LABS: Absolute Lymphocyte Count 2.47 X10^3/ul (0.83-4.51); Absolute Neutrophil Count 5.1 X10^3/uL (2.0-7.7); Basophil# 0.05 X10^3/uL; Basophil% 0.6 % (0-1); Eosinophil# 0.08 X10^3/uL; Eosinophils% 0.9 % (0-5); Hematocrit 45.7 % (37-47); Hemoglobin 15.5 g/dl (12.0-15.0); Lymphocyte # 2.47 X10^3/ul (4.0); Lymphocyte % 29.1 % (19-41); Mean Corp Hgb Conc 33.9 g/gl (32-36); Mean Corpuscular Hgb 29.4 pg (27.0-32.0); Mean Corpuscular Volume 86.7 fL (81-99); Mean Platelet Vol. 11.2 fl (6.2-12.0); Monocyte# 0.71 X10^3/uL; Monocyte% 8.4 % (0-10); Neutrophil # 5.13 X10^3/uL (2.7-7.7); Neutrophil % 60.5 % (47-70); Platelet Count 233 K/mm3 (150-450); RBC Distribution Width CV 12.9 % (11.6-14.6); RBC Distribution Width SD 40.4 fl (35.1-43.9); Red Blood Count 5.27 M/mm3 (4.2-5.4); White Blood Count 8.5 K/mm3 (4.4-11.0)
[2018-04-19 00:24] LABS: POSITIVE COUNT NO; POSITIVE DIFFERENTIAL NO; POSITIVE MORPHOLOGY NO
--- NOTE | 2018-04-19 01:31 | CT_ITS ---
STUDY: CTA CHEST REASON FOR EXAM: Female, 53 years old. Chest pain. Back pain. Shaking and anxious for 4 days. History of hypertension, [place], COPD, diabetes. Concern for dissection. RADIATION DOSAGE (If Supplied By Facility): CTDIvol = ( 24.61 ) mGy, DLP = ( 754.55 ) mGycm TECHNIQUE: The examination was performed with the intravenous administration of 100ML ml of Isovue 370 contrast material. Post-processing of the angiographic images was performed, with multiplanar reformation, but without 3D reconstruction. Individualized dose optimization techniques were used for this CT. COMPARISON: Chest x-ray 04/19/2018. CT scan abdomen and pelvis 05/25/2017. FINDINGS: There is a small nodule in the right lobe of thyroid gland. Normal enhancement of the main pulmonary artery and right and left pulmonary arteries. Normal enhancement of the bilateral peripheral pulmonary arteries. There is no demonstrated pulmonary embolism. Normal thoracic aorta and visualized great vessels. There is no demonstrated aortic dissection. Normal heart and pericardium. Normal mediastinum. Normal hilar regions. Normal visualized trachea and bronchi. The lungs are well expanded. Normal pulmonary parenchyma. Normal pleura. Normal chest wall structures. There are degenerative changes of thoracic spine. There is fatty infiltration of the liver. The gallbladder is not identified on previous studies, probably representing cholecystectomy. There is a small accessory spleen CT/CTA Chest W/WO Contrast IMPRESSION: Normal CTA chest examination, without a demonstrated pulmonary embolism or arterial dissection. No evidence for acute cardiopulmonary pathology. Small thyroid nodule. Suggest elective follow-up thyroid ultrasound. Electronically Signed: Alex Askew MD at 2:35 EDT , Service support ,
--- NOTE | 2018-04-19 01:31 | ED.RN ---
THIS NURSE IN THE ROOM TO GIVE THE PT MEDICATIONS. PT C/O INCREASED STERNAL PAIN RADIATES INTO HER BACK. PT ALSO C/O FEELING NAUSEATED. DR VEGA NOTIFIED OF THE SAME
[2018-04-19] MEDS: Morphine 4 MG/ML Syringe IV (01:42)
[2018-04-19] MEDS: Ondansetron 4 MG/2 ML Vial IV (01:42)
[2018-04-19 01:47] LABS: Anion Gap 13 (5-15); BUN 11 mg/dL (7-18); BUN/Creat Ratio 9.6 RATIO (10-20); Chloride 99 mmol/L (98-107); Creatinine, Serum 1.15 mg/dL (0.55-1.02); EST Glomerular Filtration Rate 52 mL/min (>60); Est Glom Filt Rate - Afr Amer 63 mL/min (>60); Estimated Creatinine Clearance 50.91 ml/min; Glucose 205 mg/dL (74-106); Sodium Level 134 mmol/L (136-145)
--- NOTE | 2018-04-19 02:00 | EKG12_ITS ---
Test Reason : REPEAT Blood Pressure : / mmHG Vent. Rate : 094 BPM Atrial Rate : 094 BPM P-R Int : 152 ms QRS Dur : 082 ms QT Int : 372 ms P-R-T Axes : 037 -17 060 degrees QTc Int : 465 ms Normal sinus rhythm Inferior infarct , age undetermined Abnormal ECG Confirmed by LILLIAN LEPE, JUWAN ([id number]), editor trade journal COLLINS QUEZADA ([id number]) on 04/21/2018 1:15:17 PM Referred By: GARY Confirmed By:JUWAN SNYDER MD
[2018-04-19] MEDS: Atenolol 100 MG Tablet PO (02:16)
[2018-04-19] MEDS: Spironolactone 50 MG Tablet PO (02:16)
--- NOTE | 2018-04-19 02:52 | ED.VISSUMM ---
- ER Visit Summary Date of Service: 04/19/18 Chief Complaint: Anxiety History of Present Illness: The patient is a 53 F who presents with anxiety. She states a few days ago she quit taking her medications. Since yesterday she has been increasingly anxious. She complains of a headache. She states her arms are tingling. She also complains of mild central chest pain. She also reports chills and sweats but no documented fevers. She states she has been under increased anxiety because she has been worrying about her nephew. She also complains of some abdominal cramps. She has a history of diabetes and hypertension. She states that she has been told that she had a previous heart attack however she has never had a cardiac cath stents bypass. She is uncertain why she was told this. She was given an aspirin in route by EMS. Physical Examination: Initial blood pressure 211/103 heart rate 120 pulse ox 93% on room air Moist mucous membranes Heart regular rhythm tachycardia Lungs are clear Abdomen soft Extremities nontender without edema symmetric palpable radial pulses Patient does appear anxious Test Results: EKG shows sinus rhythm at a rate of 108 with inferior Q waves similar to prior. Repeat EKG is unchanged. Two-view chest x-ray shows no acute process. CBC BMP troponin unremarkable with undetectable. CTA of the chest shows no pulmonary embolism or dissection. There is a small thyroid nodule. Emergency Department Course and Treatment: Initially I felt the patient's symptoms were in fact most likely related to anxiety. Her initial laboratory studies were unremarkable. Her hypertension is likely related to medication noncompliance. She was given her home doses of hypertensive medications and her blood pressure has significantly improved. However she began to complain of increasingly more severe central chest pain radiating through to the back so CTA of chest was obtained given the hypertension to rule out aortic dissection. This was unremarkable. However patient continues to complain of increased chest pain. She was given sublingual nitroglycerin with really no change to her symptoms. She is complaining of 10 out of 10 chest pain however resting comfortably with her eyes closed. She does have risk factors given diabetes hypertension obesity and abnormal EKG. Therefore I do feel she needs a cardiac rule out. She was discussed with hospitalist and will be admitted. Treatment Plan: [] Disposition: Admit Impression: Chest pain Anxiety Medication noncompliance This note was generated with [employer] software. It may contain incorrect words, spelling, and punctuation that were not noted in review of the chart prior to signing ED Disposition - Plan for ED Patient: Chief Complaint: Anxiety Referrals: Joaquim Burks DO [Primary Care Provider] -
--- NOTE | 2018-04-19 02:53 | PCM.HP.STD ---
Problem List (1) Chest pain Status: Acute Qualifiers: Chest pain type: unspecified Qualified Code(s): R07.9 - Chest pain, unspecified (2) Tracheostomy dependence Status: Chronic (3) GERD (gastroesophageal reflux disease) Status: Chronic Qualifiers: (4) COPD (chronic obstructive pulmonary disease) Status: Chronic Qualifiers: COPD type: unspecified COPD Qualified Code(s): J44.9 - Chronic obstructive pulmonary disease, unspecified (5) Morbid obesity Status: Chronic (6) Anxiety and depression Status: Chronic (7) Type II diabetes mellitus Status: Chronic Qualifiers: Diabetes mellitus senior living insulin use: without senior living use Diabetes mellitus complication status: with unspecified complications Qualified Code(s): E11.8 - Type 2 diabetes mellitus with unspecified complications (8) Hyperlipidemia Status: Chronic Qualifiers: (9) Hypertension Status: Chronic Qualifiers: History of Present Illness Date of Admission: 04/19/18 Chief Complaint: Chest pain The patient is a 53 y/o F w/ PMHx: Morbid Obesity, Chronic COPD, Former Tobacco use, Diabetes mellitus type II, History of Angioedema s/p Tracheostomy w/ usage of chronic trach mask q HS, Anxiety and Depression, HTN, HLD who presents to the [facility] ED on 04/19/18 with history of progressively worsening anxiety which she attributes to her nephew being homeless although no clear reason why she had not offered him to live with her in addition to noting she has an upcoming outpatient surgery on her trach site per Dr. Ortez (05/01) with onset over the last several days non-radiating substernal chest pain, described as pressure, 10/10 when it occurs with associated diaphoresis but no dyspnea, nausea or emesis. She notes that the episodes have been intermittent and last minutes, resolving randomly. She notes secondary to her anxiety and general malaise she decided to discontinue her home medications which included her anxiety/depression regimen as well as her hypertensive regimen. She notes having an upcoming PCP visit but did not relay all of these details to the PCP office. In the ED work-up included T 98.3, heart rate 120--> 88, BP initially 211/103--> 152/88, respiratory rate 18, 93% on room air, unremarkable CBC, BMP with sodium 134, BUN/creatinine 11/1.15, glucose 205, troponin < 0.015, chest x-ray with no acute process, CTPA with no evidence of acute PE nor other acute findings but noted small right thyroid nodule, EKG with sinus rhythm with inferior Q waves similar to prior. In the ED patient administered aspirin, atenolol 100 mg p.o. x1, Ativan 1 mg IV x1, morphine 4 mg IV x1, sublingual nitroglycerin 0.4 mg was 1, Zofran 4 mg IV x1, spironolactone 30 mg x1. In the ED upon evaluation, despite appearing comfortable, she noted having 10/10 chest discomfort. Past Medical History Past Medical History (Chronic Problems): Chronic Problems Tracheostomy dependence (Chronic) Anxiety (Chronic) GERD (gastroesophageal reflux disease) (Chronic) COPD (chronic obstructive pulmonary disease) (Chronic) Morbid obesity (Chronic) Anxiety and depression (Chronic) Status post tracheostomy (Chronic) Depression (Chronic) Angioedema (Chronic) Type II diabetes mellitus (Chronic) Hyperlipidemia (Chronic) Hypertension (Chronic) Allergies bupropion [From Wellbutrin] Allergy (Verified 04/18/18 23:56) Angioedema lisinopril Allergy (Verified 04/18/18 23:56) Angioedema sulfamethoxazole [From Bactrim] Allergy (Verified 04/18/18 23:56) Rash trimethoprim [From Bactrim] Allergy (Verified 04/18/18 23:56) Rash acetaminophen [From Vicodin] Adverse Reaction (Verified 04/18/18 23:56) Nausea/Vom/Diarrhea aspirin Adverse Reaction (Verified 04/18/18 23:56) Nausea/Vom/Diarrhea hydrocodone [From Vicodin] Adverse Reaction (Verified 04/18/18 23:56) Nausea/Vom/Diarrhea Home Medications: Ambulatory Orders Medication Instructions Recorded Atenolol [Tenormin (beta haley)] 100 mg PO DAILY 02/20/16 Fluoxetine HCl 60 mg PO DAILY 02/20/16 Spironolactone [Aldactone] 50 mg PO DAILY 02/20/16 busPIRone [Buspar] 15 mg PO TID 02/20/16 Epinephrine [Epi Pen] 0.3 mg IM X1 PRN #1 syringe 04/01/16 Loratadine [Claritin] 10 mg PO DAILY PRN 12/16/16 Trazodone HCl 200 mg PO QHS 02/25/17 Budesonide 1 inh INHALATION BID 05/25/17 Glimepiride [Amaryl] 4 mg PO DAILY 05/25/17 Tizanidine HCl 4 mg PO Q8H PRN 05/25/17 Naproxen 500 mg PO BID 01/17/18 Arformoterol Tartrate [Brovana] 2 ml IH BID 04/19/18 Pantoprazole Sodium 40 mg PO DAILY 04/19/18 Surgical History: - - Tracheostomy, cholecystectomy, bilateral tubal ligation, NovaSure, bladder suspension surgery. Psychiatric History: No pertinent psych hx [employer]ATOR History: No pertinent [employer]PERATOR history Lives: Spouse/ Significant Other Smoking Status: Former smoker - Quit ~3-3.5 years prior. Tobacco Use: Non-smoker Alcohol: None Drugs: None - *Family History Maternal History Items: Diabetes, High Cholesterol, Heart Disease, Hypertension Paternal History Items: Diabetes, High Cholesterol, Heart Disease, Hypertension Review of Systems Constitutional: Reports: Malaise, Fatigue. Denies: Anorexia, Chills, Fever HEENT: Reports: Head Aches. Denies: Sinus Congestion, Sinus Drainage Cardiovascular: Reports: Chest Pain, Chest Pressure. Denies: Light Headedness, Orthopnea, Palpitations, Syncope Respiratory: Denies: Cough, Shortness of Breath, Shortness of breath at rest, Shortness of breath upon exertion, Sputum production Gastrointestinal: Denies: Abdominal Pain, Nausea, Vomiting Genitourinary: Denies: Dysuria Musculoskeletal: Denies: Joint Pain, Joint Tenderness Skin: Denies: Rash, Wounds Neurological: Denies: Numbness, Tingling, Focal weakness Psychiatric: Reports: Anxiety, Depression. Denies: Homicidal Ideations, Suicidal Ideations Hematologic/ Lymphatic: Denies: Easy Bruising, Easy Bleeding VTE Information - Inpt Only VTE Present on Admission: No VTE Mechan Device Prophylaxis: SCD's VTE Pharm Prophylaxis ordered?: Yes Patient Problems: Active and Suspected Problems Chest pain (Acute) Subjective: Seated upright in the ED bed, NAD, appears comfortable. Objective: Physical Examination: General: awake, alert, oriented x 3 and cooperative, seated upright in the ED bed in no apparent distress. Skin: normal color, turgor, no icterus, cyanosis. HEENT: AT/NC, EOMI, PERRLA, mildly dry MM, s/p tracheostomy, no carotid bruits or JVD noted although habitus makes examination difficult. Lungs: Diminished BS BL, > bases, mild effort, no rales, ronchi or wheezing. Heart: Regular rate and rhythm; no gallop, rub audible. Abdomen: soft, morbidly obese, NTTP, ND, normal BS, unable to discern HSM secondary to habitus. Extremities: no cyanosis, clubbing, mild BL LE ankle edema. Neurological: patient awake, alert, oriented x 3; cognitive function intact; pupils equally reactive to light and accomodation; cranial nerves II-XII grossly normal, moving all 4 extremities, no focal deficits, strength mildly globally decreased. Psychiatric: affect appears flat, no acute evidence of depressive or anxiety feelings, denies any suicidal ideations. - Physical Exam Vital Signs Temp Pulse Resp BP Pulse Ox 98.3 F 106 H 16 165/113 H 94 04/18/18 23:51 04/19/18 01:51 04/19/18 01:51 04/19/18 01:51 04/19/18 01:51 Oxygen Delivery Method Room Air Weight: 274 lb 4.081 oz Body Mass Index (BMI) 45.6 Finger Stick Blood Glucose 189 Laboratory Tests Past 24 Hrs 04/18/18 04/18/18 23:54 23:54 WBC 8.5 RBC 5.27 Hgb 15.5 H Hct 45.7 MCV 86.7 MCH 29.4 MCHC 33.9 RDW 12.9 RDW Differential 40.4 Plt Count 233 MPV 11.2 Immature Gran % (Auto) 0.500 Neut % (Auto) 60.5 Lymph % (Auto) 29.1 Crenshaw % (Auto) 8.4 Eos % (Auto) 0.9 Baso % (Auto) 0.6 Absolute Neuts (auto) 5.1 Absolute Lymphs (auto) 2.47 Total Counted Not Reportable Sodium 134 L Potassium 4.0 Chloride 99 Carbon Dioxide 22.0 Anion Gap 13 BUN 11 Creatinine 1.15 H Estim Creat Clear Calc 50.91 Est GFR (MDRD) Af Amer 63 Est GFR (MDRD) Non-Af 52 L BUN/Creatinine Ratio 9.6 L Glucose 205 H Calcium 9.0 Troponin I < 0.015 POC Glucose 04/18/18 23:58 POC Glucose 189 H Assessment/Plan All Active Problems Chest pain (Acute) Difficulty breathing (Acute) Acute pancreatitis (Acute) Upper airway obstruction (Resolved) Acute respiratory failure (Resolved) The patient is a 53 y/o F w/ PMHx: Morbid Obesity, Chronic COPD, Former Tobacco use, Diabetes mellitus type II, History of Angioedema s/p Tracheostomy w/ usage of chronic trach mask q HS, Anxiety and Depression, HTN, HLD who presents to the [facility] ED on 04/19/18 with history of progressively worsening anxiety with onset over the last several days non-radiating substernal chest pain. (1) Chest Pain: EKG in ED with sinus rhythm with inferior Q waves similar to prior, CXR w/ no acute process, CTPA without acute findings, initial trop normal. Will admit to PCU, place on a monitored bed to assure no acute myocardial infarction with serial cardiac enzymes and EKGs. Patient is unable to perform exercise thus will proceed with AM nuclear stress testing. ASA, NG, morphine. FLP in AM. Mag pending. (2) Hypertensive Urgency: Missed several days of her regimen, likely contributed to #1 presentation. Improved BP with restart of her home regimen in the ED upon presentation. Will continue her home regimen including atenolol, spironolactone, PRN hydralazine. (3) Anxiety and Depression: Continue home regimen BuSpar, fluoxetine, trazodone. If stress testing unremarkable, given her presentation and recent odd discontinuation of her regimen may be appropriate for crisis evaluation; however, in interim case management consultation requested. Denies any suicidal thoughts or ideations. (4) Hyperlipidemia: Not on regimen, FLP in AM. (5) Chronic COPD: ATC duonebs, PRN albuterol, HOB, IS parameters. (6) Diabetes mellitus type II: Hold oral home regimen, NPO status awaiting stress testing, ADA following, accu checks w/ ISS. (7) Morbid Obesity: Weight loss and lifestyle changes encouraged, nutrition consulted. (8) Incidental Thyroid Nodule: CTPA w/ noted R small thyroid nodule. TSH, FT4 pending. Will need outpatient thyroid US. (9) GERD: PPI. (10) DVT Prophylaxis: SCDs, lovenox. Code Visit OBSV E&M: 60768 Initial observation care L3
--- NOTE | 2018-04-19 03:20 | ED.RN ---
pt's blood pressure was 111/75 after [address] Hood. per Dr. Hood, do not give last nitro.
[2018-04-19 04:26] LABS: Cholesterol 184 mg/dL (200); High Density Lipoprotein 28 mg/dL; Magnesium 1.5 mg/dL (1.6-2.6); T4 Free Direct 1.67 ng/dL (0.76-1.46); Thyroid Stim Hormone (TSH) 4.49 uIU/mL (0.358-3.74); Triglycerides 228 mg/dL; Very Low Density Lipoprotein 46 mg/dL (5-40)
[2018-04-19] MEDS: 0.9% Normal Saline 1,000 ML 100 ML IV (04:50)
--- NOTE | 2018-04-19 05:55 | EKG12_ITS ---
Test Reason : ADMISSION EKG Blood Pressure : / mmHG Vent. Rate : 069 BPM Atrial Rate : 069 BPM P-R Int : 136 ms QRS Dur : 084 ms QT Int : 404 ms P-R-T Axes : 030 -05 079 degrees QTc Int : 432 ms Normal sinus rhythm Cannot rule out Inferior infarct , age undetermined Abnormal ECG When compared with ECG of 19-APR-2018 02:12, MANUAL COMPARISON REQUIRED, DATA IS UNCONFIRMED Confirmed by GALINDO DUNHAM ([id number]), purchase request editor COLLINS QUEZADA ([id number]) on 04/25/2018 11:38:24 AM Referred By: OLIVA Confirmed By:GALINDO DUNHAM
[2018-04-19] MEDS: busPIRone 15 MG TABLET PO ×2 (06:25→14:30)
[2018-04-19] MEDS: Aspirin E.C. 81 MG Tablet PO (06:25)
[2018-04-19] MEDS: Morphine 2 MG/ML Syringe IV (06:27)
[2018-04-19] MEDS: Ipratropium/Albuterol Sulfate 3 ML AMPUL.NEB INHALATION ×2 (07:03→12:58)
[2018-04-19 07:05] LABS: Bedside Glucose 149 mg/dL (70-110)
[2018-04-19 08:04] LABS: International Normalized Ratio 1.1; Prothrombin Time (Protime)PT. 14.4 SECONDS (11.7-14.9)
[2018-04-19 08:05] LABS: Partial Thromboplast Time 23.6 Seconds (24.1-36.2)
[2018-04-19] MEDS: 0.9% NaCl Peripheral Flush Adult/Peds IV ×2 (08:05→08:13)
[2018-04-19] MEDS: Pantoprazole Sodium 40 MG Tablet PO (11:30)
[2018-04-19] MEDS: FLUoxetine 20 MG Capsule 60 MG PO (11:30)
[2018-04-19] MEDS: HYDROcodone Bitartrate/Apap 5/325 Tablet PO (11:30)
[2018-04-19 11:35] LABS: Bedside Glucose 155 mg/dL (70-110)
--- NOTE | 2018-04-19 11:54 | STRESSREP ---
Stress Test Report Date: 04/19/2018 Procedure: Pharmacologic stress nuclear imaging study Indications: Chest pain Consent: Per the patient Procedure: The patient underwent pharmacologic (Regadenoson) evaluation with a peak heart rate of 81 beats per minute (48 predicted maximal heart rate) and a peak blood pressure of 140/98 mmHg. The baseline ECG demonstrated normal sinus rhythm. The peak pharmacologic ECG demonstrated no obvious ECG changes. There were no cardiac dysrhythmias pretest, during pharmacologic infusion, or recovery. There was no complaint of chest discomfort during pharmacologic infusion or recovery. The examination was discontinued secondary to completion of protocol. Impression: 1. Pharmacologic (Regadenoson) evaluation 2. Peak pharmacologic ECG with no obvious ECG changes. 3. There were no cardiac dysrhythmias pretest, during pharmacologic infusion, or recovery. 4. Nuclear images pending Myocardial perfusion imaging study: Technique: The patient was injected with 15 millicuries of technetium 99m Cardiolite and subsequently rest SPECT Cardiolite nuclear imaging was obtained in the horizontal long, vertical long, and short axis views. The patient underwent pharmacologic (Regadenoson) evaluation with a peak heart rate of 81 beats per minute (48 % percent predicted maximal heart rate) and a peak blood pressure of 140/98 mmHg. The patient was injected with 45 millicuries of technetium 99m Cardiolite and subsequently stress SPECT Cardiolite nuclear imaging was obtained in the horizontal long, vertical long, and short axis views. A gated Cardiolite study at peak stress was obtained. Interpretation: Rest and stress SPECT Cardiolite nuclear imaging status post realignment, normalization, and attenuation correction demonstrate relative uniform tracer uptake and myocardial perfusion appearing within normal limits. There is end systolic thickening and brightening. The gated Cardiolite study demonstrates myocardial thickening and inward wall motion. The reported LVEF is 69 %. Impression: 1. Rest and stress SPECT Cardiolite nuclear imaging demonstrate relative uniform tracer uptake and myocardial perfusion appearing within normal limits. 2. The gated Cardiolite study reports an LVEF of 69 %. This note was generated with [employer] software. It may contain incorrect words, spelling, and punctuation that were not noted in checking the note before signing.
[2018-04-19] MEDS: Mag Hydrox/Al Hydrox/Simeth 30 ML UDC PO (12:17)
--- NOTE | 2018-04-19 13:12 | NURSING ---
STUDENT NURSE CHARTING REVIEWED BY THIS RN.
--- NOTE | 2018-04-19 13:15 | CASEMGMT ---
RN told SW patient recently stopped taking her mental health medications. She is also very stressed out as her nephew is homeless. KATIE met with patient. Introduced self and role at [facility]. Patient said she periodically stops taking her meds. SW told her it is not advised to stop medications on her own. She said sometimes she just forgets. Her primary care Dr prescribes her meds. She has an appt with her next Tuesday. She is not sure the meds are helping anymore. She plans on talking with her Dr about this next week. She denies being suicidal or homicidal. She plans on going back on her meds when she leaves hospital. SW asked if she has ever gone to counseling and she has not. SW encouraged her to try counseling as it can help her Depression and Anxiety along with her medications. SW gave her a list of local counseling agencies. SW asked her about her nephew. She said he is homeless. His mom, her sister, when he was 11. His dad moved in with his girlfriend and now her nephew has no place to stay. KATIE asked if he went to the group home and she said he lives in [place]. She thanked SW for checking in and apologized as she is tired. At this time patient is not suicidal or homicidal and patient was given counseling resources. It does not seem to be necessary to have patient evaluated by crisis. Pily SNYDER
--- NOTE | 2018-04-19 16:15 | DCINST_ITS ---
- Discharge Diagnoses Current Active Problems: Current Active and Chronic Problems Chest pain (Acute) You will use the following diet at home:: Calorie/Carbohydrate Controlled (specify 1200, 1400, etc) Your food should be the consistency of: Regular Discharge Activity: Return to Normal Activity Call your doctor if you observe: Shortness of breath, Fainting spells, Chest pain Allergies/Adverse Reactions: Allergies bupropion [From Wellbutrin] Allergy (Verified 04/18/18 23:56) Angioedema lisinopril Allergy (Verified 04/18/18 23:56) Angioedema sulfamethoxazole [From Bactrim] Allergy (Verified 04/18/18 23:56) Rash trimethoprim [From Bactrim] Allergy (Verified 04/18/18 23:56) Rash acetaminophen [From Vicodin] Adverse Reaction (Verified 04/18/18 23:56) Nausea/Vom/Diarrhea aspirin Adverse Reaction (Verified 04/18/18 23:56) Nausea/Vom/Diarrhea hydrocodone [From Vicodin] Adverse Reaction (Verified 04/18/18 23:56) Nausea/Vom/Diarrhea Medications to take at Discharge Atenolol [Tenormin (beta haley)] 50 mg PO DAILY 02/20/16 Fluoxetine HCl 60 mg PO DAILY 02/20/16 Spironolactone [Aldactone] 50 mg PO DAILY 02/20/16 busPIRone [Buspar] 15 mg PO TID 02/20/16 Epinephrine [Epi Pen] 0.3 mg IM X1 PRN #1 syringe 04/01/16 Loratadine [Claritin] 10 mg PO DAILY PRN 12/16/16 Trazodone HCl 200 mg PO QHS 02/25/17 Budesonide 1 inh INHALATION BID 05/25/17 Glimepiride [Amaryl] 4 mg PO DAILY 05/25/17 Tizanidine HCl 4 mg PO Q8H PRN 05/25/17 Naproxen 500 mg PO BID 01/17/18 Arformoterol Tartrate [Brovana] 2 ml IH BID 04/19/18 Omeprazole 40 mg PO DAILY #30 capsule. 04/19/18 The following prescriptions were given: Omeprazole 40 mg PO DAILY #30 capsule. Primary Care Physician: Joaquim Burks DO [Primary Care Provider] - Test Results: Test results from this visit will be discussed in further detail at your follow- up appointment, if applicable. Proposed Discharge Date: 04/19/18
--- NOTE | 2018-04-19 16:15 | PCM.DC.SUM ---
Discharge Date and Diagnosis - Problem List Patient Problems: Active and Suspected Problems Chest pain (Acute) Date of Admission: 04/19/18 - Primary Discharge Diagnosis Active and Suspected Problems Chest pain (Acute) - Secondary Discharge Diagnosis Chronic Problems Tracheostomy dependence (Chronic) Anxiety (Chronic) GERD (gastroesophageal reflux disease) (Chronic) COPD (chronic obstructive pulmonary disease) (Chronic) Morbid obesity (Chronic) Anxiety and depression (Chronic) Status post tracheostomy (Chronic) Depression (Chronic) Angioedema (Chronic) Type II diabetes mellitus (Chronic) Hyperlipidemia (Chronic) Hypertension (Chronic) Hospital Course and Treatment Operations: None Procedures: Stress test Summary of Care Provided: Patient is a 53-year-old female with a history of morbid obesity BMI 44, history of tobacco use, COPD, [id number] diabetes mellitus, hiatal hernia, GERD, history of angioedema status post tracheostomy with usage of chronic trach mask nightly, anxiety depression, hypertension and dyslipidemia who was admitted for chest pain. Chest pain was felt to be noncardiac in nature and likely attributed to both anxiety as well as acid reflux. Patient reports that she was previously on omeprazole and since she was discharged from the hospital in January, she was changed to Protonix. She admits that she gets burning-like sensation in her epigastrium and has an irritated throat, causing burning in her tracheostomy site. Patient denies any nausea or vomiting. Patient was evaluated for cardiac chest pain and underwent serial cardiac enzymes and EKGs. Stress test was unremarkable and showed no evidence of reversible ischemia. Patient was otherwise doing well and had no further bouts of chest pain. She initially was given 1 dose of a GI cocktail which immediately relieved her epigastric pain. Patient was otherwise doing well was stable and ready for discharge and had met maximal hospital benefit. She will be discharged home on omeprazole and will be discontinued off of Protonix, at her request. Patient Problems: Active and Suspected Problems Chest pain (Acute) - Physical Exam General: Alert, Oriented x3, Cooperative HEENT: Atraumatic, Normocephalic Neck: Supple, Trachea Midline - With noted tracheostomy site, Band-Aid in place Lungs: Clear to auscultation, Normal air movement Cardiovascular: Regular rate, No murmurs Abdomen: Bowel Sounds Present, Soft, Non Tender Extremities: No edema, Capillary Refill Less than 3 Seconds Skin: No rashes, No breakdown Musculoskeletal: No Tenderness to Palpation of Joints or Extremities Neurological: Cranial nerves II-XII grossly intact Psych/Mental Status: Appropriate, Flat Affect Vital Signs Temp Pulse Resp BP Pulse Ox 98.3 F 61 16 122/57 H 90 04/19/18 14:37 04/19/18 14:37 04/19/18 14:37 04/19/18 14:37 04/19/18 14:37 Oxygen Delivery Method Room Air Weight: 120 kg Body Mass Index (BMI) 44.0 Finger Stick Blood Glucose 189 Intake and Output for Last 24 Hours 04/17/18 04/18/18 04/19/18 23:59 23:59 23:59 Intake Total 402 / 402 Balance 402 / 402 Laboratory Tests Past 24 Hrs 04/18/18 04/18/18 04/19/18 23:54 23:54 03:56 WBC 8.5 RBC 5.27 Hgb 15.5 H Hct 45.7 MCV 86.7 MCH 29.4 MCHC 33.9 RDW 12.9 RDW Differential 40.4 Plt Count 233 MPV 11.2 Immature Gran % (Auto) 0.500 Neut % (Auto) 60.5 Lymph % (Auto) 29.1 [place] % (Auto) 8.4 Eos % (Auto) 0.9 Baso % (Auto) 0.6 Absolute Neuts (auto) 5.1 Absolute Lymphs (auto) 2.47 Total Counted Not Reportable PT INR APTT Sodium 134 L Potassium 4.0 Chloride 99 Carbon Dioxide 22.0 Anion Gap 13 BUN 11 Creatinine 1.15 H Estim Creat Clear Calc 50.91 Est GFR (MDRD) Af Amer 63 Est GFR (MDRD) Non-Af 52 L BUN/Creatinine Ratio 9.6 L Glucose 205 H Calcium 9.0 Magnesium 1.5 L Troponin I < 0.015 < 0.015 Triglycerides Cholesterol LDL Cholesterol VLDL Cholesterol HDL Cholesterol TSH 4.49 H Free T4 1.67 H 04/19/18 04/19/18 04/19/18 03:56 06:40 06:40 WBC RBC Hgb Hct MCV MCH MCHC RDW RDW Differential Plt Count MPV Immature Gran % (Auto) Neut % (Auto) Lymph % (Auto) [place] % (Auto) Eos % (Auto) Baso % (Auto) Absolute Neuts (auto) Absolute Lymphs (auto) Total Counted PT 14.4 INR 1.1 APTT 23.6 L Sodium Potassium Chloride Carbon Dioxide Anion Gap BUN Creatinine Estim Creat Clear Calc Est GFR (MDRD) Af Amer Est GFR (MDRD) Non-Af BUN/Creatinine Ratio Glucose Calcium Magnesium Troponin I < 0.015 Triglycerides 228 H Cholesterol 184 LDL Cholesterol 110 VLDL Cholesterol 46 H HDL Cholesterol 28 L TSH Free T4 POC Glucose 04/19/18 04/19/18 04/18/18 11:30 06:24 23:58 POC Glucose 155 H 149 H 189 H Discharge Activity: Return to Normal Activity Call your doctor if you observe: Shortness of breath, Fainting spells, Chest pain Home Medications: Medications to take at Discharge Atenolol [Tenormin (beta haley)] 50 mg PO DAILY 02/20/16 Fluoxetine HCl 60 mg PO DAILY 02/20/16 Spironolactone [Aldactone] 50 mg PO DAILY 02/20/16 busPIRone [Buspar] 15 mg PO TID 02/20/16 Epinephrine [Epi Pen] 0.3 mg IM X1 PRN #1 syringe 04/01/16 Loratadine [Claritin] 10 mg PO DAILY PRN 12/16/16 Trazodone HCl 200 mg PO QHS 02/25/17 Budesonide 1 inh INHALATION BID 05/25/17 Glimepiride [Amaryl] 4 mg PO DAILY 05/25/17 Tizanidine HCl 4 mg PO Q8H PRN 05/25/17 Naproxen 500 mg PO BID 01/17/18 Arformoterol Tartrate [Brovana] 2 ml IH BID 04/19/18 Omeprazole 40 mg PO DAILY #30 capsule. 04/19/18 Following Prescrptions Were Given to Patient: Omeprazole 40 mg PO DAILY #30 capsule. Primary Care Physician: Joaquim Burks DO [Primary Care Provider] - Medical Necessity - Tobacco Use Smoking Status: Former smoker Tobacco Use: Non-smoker Meaningful Use Info Meaningful Use Diagnoses (Choose all that apply): None applicable Code Visit Inpatient E&M: 21774 Disch Hosp
== END 2018-04-19 16:14 | disposition home or self-care (01) ==
LOC: ED 04-19 00:21 → PCU 04-19 03:11
PROVIDERS: Admitting Provider Family Medicine; Emergency Provider Emergency Medicine; Family Provider Student in an Organized Health Care Education/Training Program; PCP Student in an Organized Health Care Education/Training Program; Visit Provider Family Medicine
DX: R07.89 Other chest pain (principal); E66.01 Morbid (severe) obesity due to excess calories; J44.9 Chronic obstructive pulmonary disease, unspecified; E11.9 Type 2 diabetes mellitus without complications; K21.9 Gastro-esophageal reflux disease without esophagitis; F41.9 Anxiety disorder, unspecified; I25.2 Old myocardial infarction; I10 Essential (primary) hypertension; Z87.891 Personal history of nicotine dependence; Z68.41 Body mass index [BMI] 40.0-44.9, adult; Z71.3 Dietary counseling and surveillance; Z79.899 Other long term (current) drug therapy; Z91.14 Patient's other noncompliance with medication regimen; R94.31 Abnormal electrocardiogram [ECG] [EKG]; Z93.0 Tracheostomy status; E78.5 Hyperlipidemia, unspecified; I16.0 Hypertensive urgency; F32.9 Major depressive disorder, single episode, unspecified; E04.1 Nontoxic single thyroid nodule
CPT/HCPCS: 36415; 71046; 71275; 78452; 80048; 80061; 82962; 83735; 84439; 84443; 84484; 85025; 85610; 85730; 93005; 93017; 94640; 96361; 96374; 96375; 96376; 99218; 99285; A9500; J7030; Q9967; A4216; G0378; J2405; J2785

== ENCOUNTER 2018-05-01 10:03 | Day surgery (SDC) | payer MEDICARE, SELFPAY ==
--- NOTE | 2018-04-27 15:57 | EKG12_ITS ---
Test Reason : PREOP Blood Pressure : / mmHG Vent. Rate : 069 BPM Atrial Rate : 069 BPM P-R Int : 138 ms QRS Dur : 080 ms QT Int : 412 ms P-R-T Axes : 024 -06 042 degrees QTc Int : 441 ms Normal sinus rhythm Normal ECG Confirmed by TIGRE LEPE, EDUARDO ([id number]), continuity editor COLLINS QUEZADA ([id number]) on 05/03/2018 2:30:47 PM Referred By: Cristopher Ortez Confirmed By:EDUARDO LANDEROS MD
[2018-04-27 16:39] LABS: Hematocrit 41.9 % (37-47); Hemoglobin 14.3 g/dl (12.0-15.0); Mean Corp Hgb Conc 34.1 g/gl (32-36); Mean Corpuscular Hgb 30.2 pg (27.0-32.0); Mean Corpuscular Volume 88.6 fL (81-99); Mean Platelet Vol. 11.6 fl (6.2-12.0); Platelet Count 207 K/mm3 (150-450); RBC Distribution Width CV 12.9 % (11.6-14.6); RBC Distribution Width SD 41.7 fl (35.1-43.9); Red Blood Count 4.73 M/mm3 (4.2-5.4); White Blood Count 6.6 K/mm3 (4.4-11.0)
[2018-04-27 16:41] LABS: Anion Gap 10 (5-15); BUN 13 mg/dL (7-18); BUN/Creat Ratio 14.3 RATIO (10-20); Calcium,Total 8.9 mg/dL (8.5-10.1); Chloride 104 mmol/L (98-107); Creatinine, Serum 0.91 mg/dL (0.55-1.02); EST Glomerular Filtration Rate 69 mL/min (>60); Est Glom Filt Rate - Afr Amer 84 mL/min (>60); Glucose 102 mg/dL (74-106); Sodium Level 138 mmol/L (136-145)
[2018-04-27 16:46] LABS: Scan Indicated on CBC? Y/N NO
[2018-05-01] VITALS (10 sets, daily range): BP systolic 115–150; BP diastolic 62–98; PULSE 60–72; RESP 14–16; TEMP 36.3–36.9; O2SAT 92–98; BMI 43.7
[2018-05-01 10:51] LABS: Bedside Glucose 193 mg/dL (70-110)
--- NOTE | 2018-05-01 11:29 | DCINST_ITS ---
You will use the following diet at home:: Regular Discharge Activity: Return to Normal Activity Additional Activity Instructions:: Keep dressing intact and dry. Follow up tomorrow for dressing removal. Allergies/Adverse Reactions: Allergies bupropion [From Wellbutrin] Allergy (Verified 05/01/18 10:25) Angioedema lisinopril Allergy (Verified 05/01/18 10:25) Angioedema sulfamethoxazole [From Bactrim] Allergy (Verified 05/01/18 10:25) Rash trimethoprim [From Bactrim] Allergy (Verified 05/01/18 10:25) Rash acetaminophen [From Vicodin] Adverse Reaction (Verified 05/01/18 10:25) Nausea/Vom/Diarrhea aspirin Adverse Reaction (Verified 05/01/18 10:25) Nausea/Vom/Diarrhea hydrocodone [From Vicodin] Adverse Reaction (Verified 05/01/18 10:25) Nausea/Vom/Diarrhea Medications to take at Discharge Atenolol [Tenormin (beta haley)] 50 mg PO DAILY 02/20/16 Fluoxetine HCl 60 mg PO DAILY 02/20/16 Spironolactone [Aldactone] 50 mg PO DAILY 02/20/16 busPIRone [Buspar] 15 mg PO TID 02/20/16 Epinephrine [Epi Pen] 0.3 mg IM X1 PRN #1 syringe 04/01/16 Loratadine [Claritin] 10 mg PO DAILY PRN 12/16/16 Trazodone HCl 200 mg PO QHS 02/25/17 Budesonide 1 inh INHALATION BID 05/25/17 Glimepiride [Amaryl] 4 mg PO DAILY 05/25/17 Tizanidine HCl 4 mg PO Q8H PRN 05/25/17 Naproxen 500 mg PO BID 01/17/18 Arformoterol Tartrate [Brovana] 2 ml IH BID 04/19/18 Omeprazole 40 mg PO DAILY #30 capsule. 04/19/18 Primary Care Physician: Joaquim Burks DO [Primary Care Provider] - Test Results: Test results from this visit will be discussed in further detail at your follow- up appointment, if applicable.
--- NOTE | 2018-05-01 11:30 | FIST_PTH ---
PATIENT: FER ARORA LOC: [facility] [place][id number] AGE/SX: 53/F ROOM: RE05/01/[address]: Dr. Cristopher Ortez MD : [id number] BED: DIS: 05/01/2018 SPEC #: [id number] RECD: 05/01/18 14:53 STATUS: JETT JESUS #: [id number] KEN: 05/01/18 11:[address]: Cristopher Ortez DEPT: SURGICAL PATHOLOGY RECD BY: Kat Reina ENTERED: 05/01/18 14:54 SP TYPE: Fistula OTHR DR: Dr. 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 SJ:josephine 05/02/18 MICROSCOPIC DESCRIPTION Slides are reviewed. GROSS DESCRIPTION Received in fixative is one container labeled with the patient's name and designated fistula tract. The specimen consists of one irregular fragment of light brennan soft tissue that measures 3.5 x 1 cm and up to 1 cm in thickness. The specimen is bisected and submitted entirely in one cassette. / SJ:josephine 05/01/18 TC:5 CPT: 16829
[2018-05-01] MEDS: Bacitracin 500 UNITS/GM PACKET (12:58)
--- NOTE | 2018-05-01 13:20 | PCM.OPRPT ---
Report of Operation Date of Procedure: 05/01/18 Pre-Operative Diagnosis: tracheocutaneous fistula Post-Operative Diagnosis: same Surgery/Procedure Performed:: Closure tracheocutaneous fistula Description of Surgical Findings:: as above fruit grading supervisor: Armand Gama Type of Anesthesia:: General Anesthesiologist: Tawanda Schwartz Specimen's removed: fistula tract Estimated Blood Loss (mL): minimal Description of Procedure: The patient was taken to the OR on 05/01/18. She was placed in the supine position on the OR table and given sufficient general endotracheal anesthesia. There was obvious air and mucous coming through the tract after intubation. The neck was prepped and draped steriley. 1% lidocaine with epinephrine ([id number]) was injected into the skin surrounding the fistula. I then made an elliptical incision to include the fistula tract. Monopolar cautery was used for hemostasis. I then used sharp dissection and cautery to establish a plane circumferentially around the tract. The tract was controlled with allis clamps. The dissection was carried down to the front face of the trachea. A large vein was clamp cut and ligated with 3-0 silk on the right side of the trachea. Next, the tract was excised. I placed 3-0 silk retention sutures at 3 and 9 o'clock. Next, I closed the tract by using 4-0 interrupted PDS so as to imbricate the lining toward the trachea. The wound was then filled with saline. The cuff was then deflated. The nose and mouth were closed and she was ventilated by hand to a pressure of 30 cm H2O. No bubbles were seen in the wound. The retention sutures were removed and again the wound was filled with saline. She was again hand ventilated while closing her mouth and plugging her nose. She was ventilated to a pressure of 30 cm H2O and again, no bubbles were seen coming from the repair. I then copiously irrigated the wound with saline. Next, I dissected strap muscle flaps from each side of the trachea. These were then swung over the tracheal repair and closed with interrupted 4-0 vicryl. Next, I closed the overlying fat with 4-0 vicryl. A vessel loop was used as a drain and placed superficial to the muscular flap but deep to the fat. This was sewn to the skin with 5-0 Nylon. The skin was closed with interrupted 5-0 Nylon. Antibiotic ointment was applied to the incision. A pressure dressing was then applied. The patient was awoken and brought to the recovery room in stable condition. Blood loss minimal, replacement none. Sponge, needle and instrument count were correct at the end of the procedure.
--- NOTE | 2018-05-01 13:33 | OP.PCM_ITS ---
Report of Operation Date of Procedure: 05/01/18 Pre-Operative Diagnosis: tracheocutaneous fistula Post-Operative Diagnosis: same Surgery/Procedure Performed:: Closure tracheocutaneous fistula Description of Surgical Findings:: as above concrete curer: Armand Gama Type of Anesthesia:: General Anesthesiologist: Tawanda Schwartz Specimen's removed: fistula tract Estimated Blood Loss (mL): minimal Description of Procedure: The patient was taken to the OR on 05/01/18. She was placed in the supine posi tion on the OR table and given sufficient general endotracheal anesthesia. There was obvious air and mucous coming through the tract after intubation. The neck was prepped and draped steriley. 1% lidocaine with epinephrine (1:[id number]) was injected into the skin surrounding the fistula. I then made an elliptical incision to include the fistula tract. Monopolar cautery was used for hemostasis. I then used sharp dissection and cautery to establish a plane circumferentially around the tract. The tract was controlled with allis clamps. The dissection was carried down to the front face of the trachea. A large vein was clamp cut and ligated with 3-0 silk on the right side of the trachea. Next, the tract was excised. I placed 3-0 silk retention sutures at 3 and 9 o'clock. Next, I closed the tract by using 4-0 interrupted PDS so as to imbricate the lining toward the trachea. The wound was then filled with saline. The cuff was then deflated. The nose and mouth were closed and she was ventilated by hand to a pressure of 30 cm H2O. No bubbles were seen in the wound. The retention sutures were removed and again the wound was filled with saline. She was again hand ventilated while closing her mouth and plugging her nose. She was ventilated to a pressure of 30 cm H2O and again, no bubbles were seen coming from the repair. I then copiously irrigated the wound with saline. Next, I dissected strap muscle flaps from each side of the trachea. These were then swung over the tracheal repair and closed with interrupted 4-0 vicryl. Next, I closed the overlying fat with 4-0 vicryl. A vessel loop was used as a drain and placed superficial to the muscular flap but deep to the fat. This was sewn to the skin with 5-0 Nylon. The skin was closed with interrupted 5-0 Nylon. Antibiotic ointment was applied to the incision. A pressure dressing was then applied. The patient was awoken and brought to the recovery room in stable condition. Blood loss minimal, replacement none. Sponge, needle and instrument count were correct at the end of the procedure.
[2018-05-01 14:56] LABS: Bedside Glucose 156 mg/dL (70-110)
--- NOTE | 2018-05-01 15:08 | SUR.PHASEII ---
DR Linsey KING RETURNS PAGE TO CLARIFY HOW SOON TO FOLLOW UP, HE STATES PATIENT HAS APPT TO BE SEEN IN OFFICE TOMORROW FOR DRESSING REMOVAL. ORDERED PO PAIN MEDICATION TRAMADOL 50 MG PO X 1 NOW, INSTRUCTED THAT PATIENT SHOULD TAKE TYLENOL Q4HRS AROUND THE CLOCK. PATIENT/FAMILY EDUCATED WITH ALL INFORMATION .
[2018-05-01] MEDS: traMADol 50 MG Tablet PO (15:18)
== END 2018-05-01 16:20 | disposition home or self-care (01) ==
LOC: SDC 10:04 → AC 10:04
PROVIDERS: Family Provider Student in an Organized Health Care Education/Training Program; PCP Student in an Organized Health Care Education/Training Program; Referring Provider Otolaryngology; Visit Provider Otolaryngology
PROC: (CPT 31825; principal; 2018-05-01 11:15)
DX: J95.09 Other tracheostomy complication (principal); I10 Essential (primary) hypertension; K21.9 Gastro-esophageal reflux disease without esophagitis; F41.9 Anxiety disorder, unspecified; E11.9 Type 2 diabetes mellitus without complications; F32.9 Major depressive disorder, single episode, unspecified; G47.30 Sleep apnea, unspecified; Z85.850 Personal history of malignant neoplasm of thyroid; Z87.891 Personal history of nicotine dependence; Z79.899 Other long term (current) drug therapy; Z79.84 Long term (current) use of oral hypoglycemic drugs; I25.2 Old myocardial infarction
CPT/HCPCS: 00320; 31825; 36415; 80048; 82962; 85027; 88304; 93005; J7120; J0330; J2405

== ENCOUNTER → 2018-06-07 20:00 | Outpatient (CLI) | payer MEDICARE, SELFPAY | PROVIDERS: Family Provider Student in an Organized Health Care Education/Training Program; PCP Student in an Organized Health Care Education/Training Program; Visit Provider Nurse Practitioner Adult Health | DX: G47.33 Obstructive sleep apnea (adult) (pediatric) (principal) | CPT/HCPCS: 95810 ==

== ENCOUNTER 2018-07-06 20:24 | Emergency (ER) | payer MEDICARE, SELFPAY ==
[2018-07-06 20:25] VITALS: BP 154/86; PULSE 63; RESP 18; TEMP 36.3; O2SAT 100; BMI 38.7
[2018-07-06] MEDS: oxyCODONE 5 MG Tablet 10 MG PO (21:05)
[2018-07-06] MEDS: Ondansetron ODT 4 MG Tablet PO (21:05)
[2018-07-06 21:07] VITALS: TEMP 36.5
[2018-07-06 21:19] LABS: Mucous, Urine 0 SEEN /hpf (<or=2+); Red Blood Cells-Urine 0 SEEN /hpf (0-5)
[2018-07-06 21:36] LABS: Color, Urine Yellow (Yellow); Glucose, Dipstick Normal (Normal); Ketone-Dipstick 5 mg/dl (Negative); Leukocyte Esterase-Dipstick 25 /ul (Negative); Nitrite-Dipstick Negative (Negative); Occult Blood-Urine Negative /ul (Negative); Protein-Dipstick 15 mg/dl (Negative); Urine Clarity Cloudy (Clear); Urine Urobilinogen 1 mg/dl (Normal)
[2018-07-06 21:44] LABS: Urine Bilirubin Dipstick 1 mg/dL (Negative)
[2018-07-06 21:48] LABS: Bacteria 2+ /hpf (None Seen); Squamous Epithelial Cells - UA 5-10 SEEN /hpf (5-10); Transitional Epithelial - Ur 0 SEEN /hpf (0-5); White Blood Cells 0-5 SEEN /hpf (0-5)
[2018-07-06] MEDS: 0.9% Normal Saline 1,000 ML 150 ML IV (22:48)
[2018-07-06] MEDS: Ondansetron 4 MG/2 ML Vial IV (22:49)
[2018-07-06] MEDS: Morphine 4 MG/ML Syringe IV (22:49)
[2018-07-06 22:50] VITALS: BP 145/86; PULSE 58; RESP 14
--- NOTE | 2018-07-06 23:10 | CT_ITS ---
STUDY: CT ABDOMEN AND PELVIS WITHOUT CONTRAST REASON FOR EXAM: Female, 53 years old. Bilateral low back pain and abdominal cramping, burning with urination. RADIATION DOSAGE (If Supplied By Facility): CTDIvol = ( 23.58 ) mGy, DLP = ( 1207.54 ) mGycm TECHNIQUE: Transaxial images were obtained from the dome of the diaphragm to the symphysis pubis without oral contrast, and without intravenous contrast. Sagittal and coronal images were reconstructed. Individualized dose optimization techniques were used for this CT. COMPARISON: 05/25/2017. FINDINGS: The visualized lung bases are unremarkable. The visualized portions of the heart are within normal limits. Normal liver. There is non-visualization of the gallbladder, which may be secondary to either contraction or a prior cholecystectomy. Normal spleen. Normal pancreas. Normal bilateral adrenal glands. Normal right kidney. There again are few small nonobstructing stones in the left kidney measuring about 2 mm. There is no evidence of hydronephrosis. No abnormal calcifications are seen in the expected courses of the ureters bilaterally. Normal visualized stomach. Normal small intestine. There is fecal retention. The descending colon is under distended. There are few diverticula in in the sigmoid colon. There is no evidence of acute diverticulitis. The appendix is visualized and appears normal. There is mild atherosclerotic calcification of the distal abdominal aorta, without a demonstrated aneurysm. Normal inferior vena cava. Normal retroperitoneum. Normal urinary bladder. Metallic densities are seen in the pelvic lesion likely due to previous tubal ligation. There is a small umbilical hernia containing fat. There are degenerative changes of the visualized lumbar spine. CT/Abdomen/Pelvis without Cont IMPRESSION: 1. Few small nonobstructing stones in the left kidney without evidence of hydronephrosis. 2. No evidence of ureteral stones. 3. No evidence of small bowel obstruction. 4. No evidence of appendicitis. 5. Electronically Signed: Donny Fair MD at 23:37 EST Tel , Service support ,
[2018-07-06 23:11] LABS: Anion Gap 10 (5-15); BUN 19 mg/dL (7-18); BUN/Creat Ratio 21.4 RATIO (10-20); Calcium,Total 9.1 mg/dL (8.5-10.1); Chloride 102 mmol/L (98-107); Creatinine, Serum 0.89 mg/dL (0.55-1.02); EST Glomerular Filtration Rate 71 mL/min (>60); Est Glom Filt Rate - Afr Amer 86 mL/min (>60); Glucose 99 mg/dL (74-106); Sodium Level 135 mmol/L (136-145)
[2018-07-06 23:25] LABS: Absolute Lymphocyte Count 3.38 X10^3/ul (0.83-4.51); Absolute Neutrophil Count 4.9 X10^3/uL (2.0-7.7); Basophil# 0.07 X10^3/uL; Basophil% 0.7 % (0-1); Eosinophil# 0.53 X10^3/uL; Eosinophils% 5.4 % (0-5); Hemoglobin 15.3 g/dl (12.0-15.0); Lymphocyte # 3.38 X10^3/ul (4.0); Lymphocyte % 34.3 % (19-41); Mean Corpuscular Hgb 30.4 pg (27.0-32.0); Mean Corpuscular Volume 89.3 fL (81-99); Mean Platelet Vol. 10.7 fl (6.2-12.0); Monocyte# 0.91 X10^3/uL; Monocyte% 9.2 % (0-10); Neutrophil # 4.89 X10^3/uL (2.7-7.7); Neutrophil % 49.7 % (47-70); Platelet Count 240 K/mm3 (150-450); RBC Distribution Width CV 13.4 % (11.6-14.6); RBC Distribution Width SD 43.5 fl (35.1-43.9); Red Blood Count 5.04 M/mm3 (4.2-5.4); White Blood Count 9.9 K/mm3 (4.4-11.0)
[2018-07-06 23:26] LABS: POSITIVE COUNT NO; POSITIVE DIFFERENTIAL NO; POSITIVE MORPHOLOGY NO
--- NOTE | 2018-07-06 23:46 | ED.DCSUM_ITS ---
- ER Visit Summary Date of Service: 07/06/18 Chief Complaint: Dysuria History of Present Illness: The patient is a 53 F reports dysuria and urinary frequency along with abdominal pain for the past couple days. She has a history of frequent UTIs. Past history significant for COPD, diabetes, hypertension, high cholesterol. She has not had fever or chills. Physical Examination: Blood pressure is 154/86, otherwise vitals normal. Patient sitting upright in bed no acute distress. Head neck examination is normal. Heart is regular rate and rhythm. Lungs sounds are clear. Abdomen is soft with mild diffuse tenderness, worse in the lower abdomen. No guarding or rebound. Hypoactive bowel sounds present. Test Results: Urinalysis shows 0-5 white cells with 5-10 epithelial cells. Nitrites are negative. CBC was normal white count with a hemoglobin of 15.3. Chemistry studies unremarkable. CT flank shows a few nonobstructing stones in the left kidney. No ureteral stones noted. No appendicitis. Emergency Department Course and Treatment: Patient was initially given oxycodone and Zofran while her urinalysis was running. When this did not reveal significant sign of infection, further workup was obtained. She was given a dose of morphine and Zofran. Labs and CT are reviewed with the patient at this time. She will be given Percocet for home, dispense 10 tabs. If her symptoms worsen or do not improve she is to be reevaluated. Treatment Plan: [] Disposition: Discharge Impression: Abdominal pain, uncertain etiology This note was generated with [employer] dictation software. It may contain incorrect words, spelling, and punctuation that were not noted in review of the chart prior to signing ED Disposition - Plan for ED Patient: Chief Complaint: Complaint Referrals: Joaqium Burks DO [Primary Care Provider] -
--- NOTE | 2018-07-06 23:46 | ED.DEP ---
ED Disposition - Plan for ED Patient: Disposition: Home or Assisted Living Chief Complaint: Complaint Instructions: ED Abdominal Pain Unkn Cause Prescriptions: Oxycodone HCl/Acetaminophen [Percocet 5/325] 1 tablet PO Q6H PRN PRN 3 Days #10 tablet PRN Reason: Pain Referrals: Joaquim Burks DO [Primary Care Provider] - 1-2 Weeks
[2018-07-07 00:03] VITALS: BP 115/76; PULSE 54; RESP 16
== END 2018-07-07 00:04 | disposition home or self-care (01) ==
PROVIDERS: Emergency Provider Emergency Medicine; Family Provider Student in an Organized Health Care Education/Training Program; PCP Student in an Organized Health Care Education/Training Program
DX: R10.9 Unspecified abdominal pain (principal); N20.0 Calculus of kidney; J44.9 Chronic obstructive pulmonary disease, unspecified; I10 Essential (primary) hypertension; E11.9 Type 2 diabetes mellitus without complications; E78.00 Pure hypercholesterolemia, unspecified; Z87.440 Personal history of urinary (tract) infections; Z79.84 Long term (current) use of oral hypoglycemic drugs; Z79.899 Other long term (current) drug therapy; Z87.891 Personal history of nicotine dependence
CPT/HCPCS: 74176; 80048; 81001; 85025; 96361; 96374; 96375; 99284; J7030; J2405

== ENCOUNTER 2018-07-24 14:44 | Emergency (ER) | payer MEDICARE, SELFPAY ==
[2018-07-24 14:45] VITALS: BP 159/94; PULSE 66; RESP 18; TEMP 37.1; O2SAT 96; BMI 43.6
--- NOTE | 2018-07-24 15:04 | CT_ITS ---
STUDY: CTA OF THE BRAIN REASON FOR EXAM: Female, 53 years old. Headache for 3 days nausea RADIATION DOSAGE (If Supplied By Facility): CTDIvol = ( 27.51 ) mGy, DLP = ( 1274.90 ) mGycm TECHNIQUE: CT angiography was performed with a multi-detector CT scanner. Data acquisition was obtained from the skull base through the vertex following intravenous administration of ml of . MIP images were reconstructed from the axial data set. Post-processing of the angiographic images was performed, with multiplanar reformation and 3D reconstruction. Individualized dose optimization techniques were used for this CT. COMPARISON: None. FINDINGS: A noncontrast CT is provided with this study. There is mild atrophy. There is no evidence of acute hemorrhage infarct or edema. The ventricles are symmetric. Normal bilateral petrous carotid arteries. Normal right cavernous carotid artery with a normal supraclinoid bifurcation. Normal left cavernous carotid artery with a normal supraclinoid bifurcation. Normal right A1 segments of the anterior cerebral artery. Normal left A1 segments of the anterior cerebral artery. There is non-visualization of the anterior communicating artery (ACOM). Normal bilateral A2 segments of the anterior cerebral arteries. Normal right M1 and M2 segments of the middle cerebral arteries, with a normal M1 bifurcation. Normal left M1 and M2 segments of the middle cerebral arteries, with a normal M1 bifurcation. Normal right posterior communicating artery (PCOM). There is subtle visualization of the left side peak, which is hypoplastic. There is a small atretic right vertebral artery with a dominant left vertebral artery. Normal basilar artery with a normal basilar bifurcation. The visualized bilateral superior cerebellar (SCA) arteries are normal. Normal bilateral P1, P2 and visualized P3 segments of the posterior cerebral arteries. There is no demonstrated aneurysm of the [place]. There is no demonstrated abnormality of the visualized brain. There is visualized degenerative change within the cervical spine. CT/CTA Head W/WO Contrast IMPRESSION: Normal [place] without a demonstrated aneurysm or hemodynamically significant stenosis. Electronically Signed: Luciana Contreras MD at 19:55 EST Tel , Service support ,
[2018-07-24] MEDS: 0.9% Normal Saline 1,000 ML 1000 ML IV (15:43)
[2018-07-24] MEDS: Metoclopramide 10 MG/2 ML Vial IV (15:48)
[2018-07-24] MEDS: Ketorolac 30 MG/ML Syringe IV (15:48)
[2018-07-24] MEDS: DiphenhydrAMINE 50 MG/ML Syringe IV (15:48)
[2018-07-24 15:52] LABS: Absolute Lymphocyte Count 2.17 X10^3/ul (0.83-4.51); Absolute Neutrophil Count 3.6 X10^3/uL (2.0-7.7); Basophil# 0.06 X10^3/uL; Basophil% 0.9 % (0-1); Eosinophil# 0.15 X10^3/uL; Eosinophils% 2.3 % (0-5); Hematocrit 44.5 % (37-47); Hemoglobin 15.2 g/dl (12.0-15.0); Lymphocyte # 2.17 X10^3/ul (4.0); Lymphocyte % 32.9 % (19-41); Mean Corp Hgb Conc 34.2 g/gl (32-36); Mean Corpuscular Hgb 29.6 pg (27.0-32.0); Mean Corpuscular Volume 86.7 fL (81-99); Mean Platelet Vol. 10.2 fl (6.2-12.0); Monocyte# 0.62 X10^3/uL; Monocyte% 9.4 % (0-10); Neutrophil # 3.58 X10^3/uL (2.7-7.7); Neutrophil % 54.2 % (47-70); POSITIVE COUNT NO; POSITIVE DIFFERENTIAL NO; POSITIVE MORPHOLOGY NO; Platelet Count 207 K/mm3 (150-450); RBC Distribution Width CV 12.7 % (11.6-14.6); RBC Distribution Width SD 40.6 fl (35.1-43.9); Red Blood Count 5.13 M/mm3 (4.2-5.4); White Blood Count 6.6 K/mm3 (4.4-11.0)
[2018-07-24 16:05] LABS: Anion Gap 11 (5-15); BUN 16 mg/dL (7-18); BUN/Creat Ratio 16.9 RATIO (10-20); Calcium,Total 8.8 mg/dL (8.5-10.1); Chloride 100 mmol/L (98-107); Creatinine, Serum 0.94 mg/dL (0.55-1.02); EST Glomerular Filtration Rate 66 mL/min (>60); Est Glom Filt Rate - Afr Amer 80 mL/min (>60); Estimated Creatinine Clearance 62.28 ml/min; Glucose 146 mg/dL (74-106); Sodium Level 133 mmol/L (136-145)
[2018-07-24 17:21] VITALS: BP 158/80; PULSE 71; RESP 14; O2SAT 95
[2018-07-24] MEDS: Morphine 4 MG/ML Syringe IV (17:28)
[2018-07-24 20:11] VITALS: BP 168/94; PULSE 62; RESP 16; O2SAT 100
[2018-07-24 20:15] LABS: Bacteria 0 SEEN /hpf (None Seen); Mucous, Urine 0 SEEN /hpf (<or=2+); Red Blood Cells-Urine 0 SEEN /hpf (0-5); Squamous Epithelial Cells - UA 0 SEEN /hpf (5-10); White Blood Cells 0 SEEN /hpf (0-5)
[2018-07-24 20:16] LABS: Color, Urine Yellow (Yellow); Glucose, Dipstick Normal (Normal); Ketone-Dipstick Negative (Negative); Leukocyte Esterase-Dipstick Negative /ul (Negative); Nitrite-Dipstick Negative (Negative); Occult Blood-Urine 10 /ul (Negative); Protein-Dipstick 15 mg/dl (Negative); Urine Bilirubin Dipstick Negative (Negative); Urine Clarity Sl. Cloudy (Clear); Urine Urobilinogen Normal (Normal)
--- NOTE | 2018-07-24 20:36 | ED.DCSUM_ITS ---
- ER Visit Summary Date of Service: 07/24/18 Chief Complaint: Headache History of Present Illness: The patient is a [address] Burks. She reports that she has a headache on the right side that began 3 days ago. Is gradually gotten worse. Is a throbbing pain is 1010 severity. Is worsened by nothing relieved by nothing. She had nausea without vomiting. No photophobia. No recent injury to her head. She denies having had a similar headache previously. She does have a family history of migraines and aneurysms. Patient reports she had dysuria and frequency for approximately 1 month. Physical Examination: Vitals: Stable. Afebrile. General: Well-nourished and well-developed. Head: Normocephalic atraumatic. Neck: Supple, no lymphadenopathy. No JVD. Nontender. Cardiovascular: Regular rate and rhythm. No murmurs. Respiratory: No respiratory distress. Clear to auscultation bilaterally. Abdominal: Soft, nontender, nondistended, normal bowel sounds. No guarding, rebound, or peritoneal signs. Back: Nontender. Extremities: Nontender, no edema. Skin: Normal color, no rash. Neurologic: Alert and oriented ?3. Cranial nerves II through XII are intact. Normal strength and sensation. Psych: Normal affect. Test Results: CBC is marked for hemoglobin of 15.2. Chem-7 more for sodium 133 and glucose 146. UA is negative. Clinical Impression(s) from Imaging Studies Head CTA 07/24/18 15:04 IMPRESSION: Normal [place] without a demonstrated aneurysm or hemodynamically significant stenosis. Electronically Signed: Luciana Contreras MD at 19:55 EST Tel , Service support , Emergency Department Course and Treatment: Patient had an IV placed. She was initially given Toradol, Benadryl, Reglan IV. She had no relief. She was given 4 mg of morphine IV and dexamethasone IV. She is resting comfortably. Treatment Plan: Patient be discharged instructed follow-up with primary care physician 1-2 days if not improving. Return to the emergency department for any worsening symptoms. Disposition: To home in improved and stable condition. Impression: 1. Cephalgia. 2. Dysuria. This note was generated with [employer] dictation software. It may contain incorrect words, spelling, and punctuation that were not noted in review of the chart prior to signing ED Disposition - Plan for ED Patient: Disposition: Home or Assisted Living Chief Complaint: Headache Instructions: ED Cephalgia Unspecified Referrals: Joaquim Burks DO [Primary Care Provider] - 1-2 Days if not improving
[2018-07-24 20:40] VITALS: BP 143/75; PULSE 78; RESP 16; O2SAT 97
--- NOTE | 2018-07-24 20:44 | ED.RN ---
BOTH IV'S DC'ED, CATHETERS INTACT, SMALL GAUZE DRESSINGS PLACED. DISCHARGE INSTRUCTIONS GIVEN TO AND REVIEWED WITH PATIENT, PATIENT DENIES QUESTIONS OR CONCERNS AND VOICES UNDERSTANDING OF DISCHARGE INSTRUCTIONS. PT AMBULATES OUT OF ROOM WITHOUT ISSUE.
== END 2018-07-24 20:45 | disposition home or self-care (01) ==
PROVIDERS: Emergency Provider Emergency Medicine; Family Provider Student in an Organized Health Care Education/Training Program; PCP Student in an Organized Health Care Education/Training Program
DX: R51 Headache (principal); R30.0 Dysuria; R35.0 Frequency of micturition; R06.7 Sneezing; R11.0 Nausea; J44.9 Chronic obstructive pulmonary disease, unspecified; E11.9 Type 2 diabetes mellitus without complications; I10 Essential (primary) hypertension; Z90.49 Acquired absence of other specified parts of digestive tract; Z79.84 Long term (current) use of oral hypoglycemic drugs; Z79.899 Other long term (current) drug therapy; Z87.891 Personal history of nicotine dependence
CPT/HCPCS: 70496; 80048; 81001; 85025; 96361; 96374; 96375; 99285; J7030; Q9967; A4216

== ENCOUNTER 2018-07-25 17:51 | Emergency (ER) | payer MEDICARE, SELFPAY ==
[2018-07-24 14:45] VITALS: BMI 43.6
[2018-07-25 17:52] VITALS: BP 158/92; PULSE 68; RESP 15; TEMP 36.3; O2SAT 95; BMI 43.1
[2018-07-25 18:07] VITALS: O2SAT 96
--- NOTE | 2018-07-25 18:07 | EKG12_ITS ---
Test Reason : Blood Pressure : / mmHG Vent. Rate : 065 BPM Atrial Rate : 065 BPM P-R Int : 142 ms QRS Dur : 082 ms QT Int : 382 ms P-R-T Axes : 001 -10 046 degrees QTc Int : 397 ms Normal sinus rhythm Voltage criteria for left ventricular hypertrophy Inferior infarct , age undetermined Abnormal ECG Confirmed by TIGRE LEPE, EDUARDO ([id number]), primer expeditor and drier COLLINS QUEZADA ([id number]) on 07/28/2018 3:26:11 PM Referred By: GIBSON Confirmed By:EDUARDO LANDEROS MD
--- NOTE | 2018-07-25 18:29 | RAD_ITS ---
STUDY: X-RAY CHEST REASON FOR EXAM: Female, 53 years old. Pain TECHNIQUE: Single AP portable view of the chest. COMPARISON: None. FINDINGS: The lungs are clear and expanded. There is no demonstrated pleural abnormality. Normal size heart. Normal mediastinum and christy. Normal visualized pulmonary arteries. Normal visualized aortic arch and descending thoracic aorta. There are diffuse degenerative changes of the visualized thoracic spine. Normal visualized ribs, clavicles, and shoulders. There is no demonstrated abnormality of the visualized soft tissue structures of the upper abdomen. RAD/Chest 1 View (Portable) IMPRESSION: Degenerative changes, as described above. No demonstrated acute cardiopulmonary process. Electronically Signed: Luciana Contreras MD at 19:17 EST Tel , Service support ,
[2018-07-25] MEDS: Morphine 4 MG/ML Syringe IV (18:42)
[2018-07-25] MEDS: Ondansetron 4 MG/2 ML Vial IV (18:42)
[2018-07-25 18:45] LABS: Absolute Lymphocyte Count 1.82 X10^3/ul (0.83-4.51); Absolute Neutrophil Count 9.7 X10^3/uL (2.0-7.7); Basophil# 0.02 X10^3/uL; Basophil% 0.2 % (0-1); Eosinophil# 0.01 X10^3/uL; Eosinophils% 0.1 % (0-5); Hematocrit 42.5 % (37-47); Lymphocyte # 1.82 X10^3/ul (4.0); Lymphocyte % 13.9 % (19-41); Mean Corp Hgb Conc 35.3 g/gl (32-36); Mean Corpuscular Hgb 29.9 pg (27.0-32.0); Mean Corpuscular Volume 84.7 fL (81-99); Mean Platelet Vol. 10.3 fl (6.2-12.0); Monocyte# 1.53 X10^3/uL; Monocyte% 11.7 % (0-10); Neutrophil # 9.67 X10^3/uL (2.7-7.7); Neutrophil % 73.6 % (47-70); Platelet Count 284 K/mm3 (150-450); RBC Distribution Width CV 12.4 % (11.6-14.6); RBC Distribution Width SD 38.2 fl (35.1-43.9); Red Blood Count 5.02 M/mm3 (4.2-5.4); White Blood Count 13.1 K/mm3 (4.4-11.0)
[2018-07-25 18:52] VITALS: BP 142/78; PULSE 60; RESP 16; O2SAT 94
[2018-07-25 18:52] LABS: POSITIVE COUNT NO; POSITIVE MORPHOLOGY NO
[2018-07-25 19:01] LABS: Anion Gap 11 (5-15); BUN 16 mg/dL (7-18); Calcium,Total 9.3 mg/dL (8.5-10.1); Chloride 102 mmol/L (98-107); Creatinine, Serum 1.14 mg/dL (0.55-1.02); EST Glomerular Filtration Rate 53 mL/min (>60); Est Glom Filt Rate - Afr Amer 64 mL/min (>60); Estimated Creatinine Clearance 51.35 ml/min; Glucose 133 mg/dL (74-106); Lipase 83 U/L (73-393); Potassium 4.1 mmol/L (3.5-5.1); Sodium Level 134 mmol/L (136-145)
[2018-07-25 19:05] LABS: Differential Comment SCANNED; Differential Indicated SCAN CRITERIA MET; POSITIVE DIFFERENTIAL YES
--- NOTE | 2018-07-25 19:27 | ED.DCSUM_ITS ---
- ER Visit Summary Date of Service: 07/25/18 Chief Complaint: Headache, chest pain History of Present Illness: The patient is a 53 F with history of hypertension and hyperlipidemia along with COPD with history of trach presents to the emergency department with chest pain and headache. The patient was actually seen here yesterday for migraine. She was treated with migraine abortive medications and given Decadron. She states about 2 hours after having the Decadron, she had a burning in her mid chest. It is been constant since then. She does describe mild nausea. She denies any vomiting. She denies any dyspnea. The patient did have a recent stress test about 3 months ago. She has no known history of coronary vascular disease. She is also still had a mild headache, but states is improved. Physical Examination: Vital signs reviewed General: Well-nourished, well-developed Head: Normocephalic, atraumatic Eyes: Pupils equal and reactive, extraocular muscles intact Neck, supple, no lymphadenopathy Heart: Regular rate and rhythm Respiratory: No distress, clear bilaterally Abdomen: Soft, nontender, nondistended, no peritoneal signs Back: Nontender Extremities: Nontender, no edema, no cords Skin: Normal color no rash Neuro: Alert and oriented, no focal or lateralizing deficits Test Results: [] Emergency Department Course and Treatment: The patient presents with headache and epigastric pain. I do feel that this is likely secondary to the medication. EKG was obtained. There is no evidence of acute ischemia. Patient was kept on a monitor. Cardiac enzymes are normal. Chest x-ray was unremarkable. Lipase was normal. With morphine and Zofran, her symptoms were improved. The patient has had similar reactions with steroids before. I do not suspect a dangerous reaction. She will continue her Pepcid. I will prescribe Fioricet to help with her headache. She will be discharged home. Treatment Plan: [] Disposition: Discharge Impression: 1. Headache 2. Noncardiac chest pain This note was generated with [employer] dictation software. It may contain incorrect words, spelling, and punctuation that were not noted in review of the chart prior to signing ED Disposition - Plan for ED Patient: Chief Complaint: Chest Pain Instructions: ED Chest Pain NonCardiac Prescriptions: Acetaminophen/Butalbital/Caffe [Fioricet] 1 tab PO Q4H PRN PRN #20 tab PRN Reason: Headache Referrals: Joaquim Burks DO [Primary Care Provider] -
[2018-07-25 19:32] VITALS: BP 137/80; PULSE 61; RESP 16; O2SAT 94
== END 2018-07-25 19:36 | disposition home or self-care (01) ==
LOC: ED 18:31
PROVIDERS: Emergency Provider Emergency Medicine; Family Provider Student in an Organized Health Care Education/Training Program; PCP Student in an Organized Health Care Education/Training Program
DX: R51 Headache (principal); R07.89 Other chest pain; R11.0 Nausea; E66.9 Obesity, unspecified; K21.9 Gastro-esophageal reflux disease without esophagitis; E11.9 Type 2 diabetes mellitus without complications; I10 Essential (primary) hypertension; E78.00 Pure hypercholesterolemia, unspecified; J44.9 Chronic obstructive pulmonary disease, unspecified; Z79.84 Long term (current) use of oral hypoglycemic drugs; Z79.899 Other long term (current) drug therapy; Z87.891 Personal history of nicotine dependence
CPT/HCPCS: 71045; 80048; 83690; 84484; 85025; 93005; 96374; 96375; 99285; A4216; J2405

== ENCOUNTER 2018-09-21 18:43 | Emergency (ER) | payer MEDICARE, SELFPAY ==
[2018-09-21 18:44] VITALS: BP 151/88; PULSE 71; RESP 12; TEMP 36.8; O2SAT 95; BMI 42.9
[2018-09-21 18:47] VITALS: BP 151/79; PULSE 66; RESP 12; O2SAT 95
--- NOTE | 2018-09-21 19:07 | CT_ITS ---
STUDY: CT BRAIN WITHOUT CONTRAST REASON FOR EXAM: Female, 53 years old. Headache, possible aneurysm. RADIATION DOSAGE (If Supplied By Facility): CTDIvol = ( 44.99 ) mGy, DLP = ( 812.98 ) mGycm TECHNIQUE: Transaxial CT imaging of the brain was performed without administration of intravenous contrast material. Individualized dose optimization techniques were used for this CT. COMPARISON: No relevant priors. FINDINGS: Normal soft tissue structures. Normal calvarium. There is mild cerebral atrophy with widening of the extra-axial spaces and ventricular dilatation. Normal white matter tracts of the cerebral hemispheres. Normal basal ganglia and thalami. Normal brainstem. Normal cerebellum. There is no intracranial hemorrhage. There are no findings of an acute ischemic infarction. Normal visualized paranasal sinuses. CT/Brain/Head without Contrast IMPRESSION: No evidence of acute intracranial bleed, mass or ischemia. Electronically Signed: Werner Klein DO at 20:55 EDT , Service support ,
--- NOTE | 2018-09-21 19:07 | ED.VISSUMM ---
- ER Visit Summary Date of Service: 09/21/18 Chief Complaint: Headache History of Present Illness: The patient is a 53 F who presents with headache that has been getting worse over the past month. Patient describes the pain as throbbing. Patient states the pain is over the episcopalian areas bilaterally and radiates down into her neck. Patient admits to some dizziness. Patient describes this as a spinning sensation. Patient admits to some tingling in her lips. Patient admits to some generalized weakness. Patient denies any fevers or chills. Patient denies any visual changes. She admits to some nausea but denies any vomiting. Patient denies any sore throat or sinus pressure. Patient states her father had a cerebral aneurysm and she is concerned that she may have one as well. Physical Examination: Vital signs are stable. Patient is afebrile. Patient is in no acute distress. There is some mild tenderness over the temporal areas bilaterally. Cranial nerves II through XII are intact. There are no focal motor or sensory deficits noted. Oral mucosa is pink and moist. Neck is supple. Trachea is midline. There is no JVD noted. Heart was regular rate and rhythm. Lungs are clear and equal bilaterally. Test Results: CT scan of the brain was obtained. There is no acute intracranial abnormality noted. CBC, basic metabolic profile, and sed rate were obtained and were normal. Emergency Department Course and Treatment: Patient was given IV fluids, Reglan, Benadryl. Patient was advised there is no intracranial bleeding. She was advised of her lab results as well. Patient was instructed to rest in a dark quiet room. Patient was instructed to follow-up with her primary care physician in 5-7 days. Patient was instructed to return if worse in any way. Patient understood and was agreeable with the plan. All questions were answered. Disposition: Discharge home Impression: Cephalgia This note was generated with [employer] dictation software. It may contain incorrect words, spelling, and punctuation that were not noted in review of the chart prior to signing ED Disposition - Plan for ED Patient: Disposition: Home or Assisted Living Diagnosis: Cephalgia Instructions: ED Cephalgia Unspecified Referrals: Joaquim Burks DO [Primary Care Provider] - 5-7 Days
[2018-09-21] MEDS: 0.9% Normal Saline 1,000 ML 1000 ML IV (19:28)
[2018-09-21] MEDS: Metoclopramide 10 MG/2 ML Vial IV (19:28)
[2018-09-21] MEDS: DiphenhydrAMINE 50 MG/ML Syringe 25 MG IV (19:29)
[2018-09-21 19:46] LABS: Absolute Lymphocyte Count 2.98 X10^3/ul (0.83-4.51); Absolute Neutrophil Count 4.6 X10^3/uL (2.0-7.7); Basophil# 0.05 X10^3/uL; Basophil% 0.6 % (0-1); Eosinophil# 0.27 X10^3/uL; Eosinophils% 3.1 % (0-5); Hematocrit 42.2 % (37-47); Hemoglobin 14.6 g/dl (12.0-15.0); Lymphocyte # 2.98 X10^3/ul (4.0); Lymphocyte % 34.3 % (19-41); Mean Corp Hgb Conc 34.6 g/gl (32-36); Mean Corpuscular Hgb 29.4 pg (27.0-32.0); Mean Corpuscular Volume 85.1 fL (81-99); Mean Platelet Vol. 10.4 fl (6.2-12.0); Monocyte# 0.73 X10^3/uL; Monocyte% 8.4 % (0-10); Platelet Count 222 K/mm3 (150-450); RBC Distribution Width CV 13.1 % (11.6-14.6); RBC Distribution Width SD 40.7 fl (35.1-43.9); Red Blood Count 4.96 M/mm3 (4.2-5.4); White Blood Count 8.7 K/mm3 (4.4-11.0)
[2018-09-21 19:47] LABS: POSITIVE COUNT NO; POSITIVE DIFFERENTIAL NO; POSITIVE MORPHOLOGY NO
--- NOTE | 2018-09-21 19:51 | ED.DCSUM_ITS ---
- ER Visit Summary Date of Service: 09/21/18 Chief Complaint: Headache History of Present Illness: The patient is a 53 F who presents with headache that has been getting worse over the past month. Patient describes the pain as throbbing. Patient states the pain is over the confucianist areas bilaterally and rad iates down into her neck. Patient admits to some dizziness. Patient describes this as a spinning sensation. Patient admits to some tingling in her lips. Patient admits to some generalized weakness. Patient denies any fevers or chills. Patient denies any visual changes. She admits to some nausea but denies any vomiting. Patient denies any sore throat or sinus pressure. Patient states her father had a cerebral aneurysm and she is concerned that she may have one as well. Physical Examination: Vital signs are stable. Patient is afebrile. Patient is in no acute distress. There is some mild tenderness over the temporal areas bilaterally. Cranial nerves II through XII are intact. There are no focal motor or sensory deficits noted. Oral mucosa is pink and moist. Neck is supple. Trachea is midline. There is no JVD noted. Heart was regular rate and rhythm. Lungs are clear and equal bilaterally. Test Results: CT scan of the brain was obtained. There is no acute intracranial abnormality noted. CBC, basic metabolic profile, and sed rate were obtained and were normal. Emergency Department Course and Treatment: Patient was given IV fluids, Reglan, Benadryl. Patient was advised there is no intracranial bleeding. She was advised of her lab results as well. Patient was instructed to rest in a dark quiet room. Patient was instructed to follow-up with her primary care physician in 5-7 days. Patient was instructed to return if worse in any way. Patient understood and was agreeable with the plan. All questions were answered. Disposition: Discharge home Impression: Cephalgia This note was generated with [employer] dictation software. It may contain incorrect words, spelling, and punctuation that were not noted in review of the chart prior to signing ED Disposition - Plan for ED Patient: Disposition: Home or Assisted Living Diagnosis: Cephalgia Instructions: ED Cephalgia Unspecified Referrals: Joaquim Burks DO [Primary Care Provider] - 5-7 Days
[2018-09-21 19:57] LABS: Erythrocyte Sedimentation Rate 20 mm/hr (0-30)
[2018-09-21 19:59] LABS: Anion Gap 7 (5-15); BUN 13 mg/dL (7-18); BUN/Creat Ratio 11.9 RATIO (10-20); Calcium,Total 8.5 mg/dL (8.5-10.1); Chloride 102 mmol/L (98-107); Creatinine, Serum 1.09 mg/dL (0.55-1.02); EST Glomerular Filtration Rate 56 mL/min (>60); Est Glom Filt Rate - Afr Amer 67 mL/min (>60); Estimated Creatinine Clearance 53.71 ml/min; Glucose 151 mg/dL (74-106); Potassium 4.2 mmol/L (3.5-5.1); Sodium Level 133 mmol/L (136-145)
[2018-09-21 21:04] VITALS: BP 138/100; PULSE 64; RESP 17; O2SAT 95
== END 2018-09-21 21:08 | disposition home or self-care (01) ==
PROVIDERS: Emergency Provider Emergency Medicine; Family Provider Student in an Organized Health Care Education/Training Program; PCP Student in an Organized Health Care Education/Training Program
DX: R51 Headache (principal); E11.9 Type 2 diabetes mellitus without complications; I10 Essential (primary) hypertension; G47.30 Sleep apnea, unspecified; R42 Dizziness and giddiness; R20.2 Paresthesia of skin; R30.0 Dysuria; R53.1 Weakness; Z79.84 Long term (current) use of oral hypoglycemic drugs; Z79.1 Long term (current) use of non-steroidal anti-inflammatories (NSAID); Z79.899 Other long term (current) drug therapy
CPT/HCPCS: 70450; 80048; 85025; 85652; 96361; 96374; 96375; 99284; J7030; A4216

== ENCOUNTER 2018-10-25 17:31 | Emergency (ER) | payer MEDICARE, SELFPAY ==
[2018-10-25 17:32] VITALS: BP 163/86; PULSE 71; RESP 16; TEMP 36.3; O2SAT 99; BMI 39.9
--- NOTE | 2018-10-25 17:59 | ED.RN ---
PT PINK SLIPPED BY [employer]. SITTER AT BEDSIDE
[2018-10-25 18:31] VITALS: PULSE 81; RESP 18; O2SAT 99
[2018-10-25 18:46] LABS: Amphetamine Urine VISTA NEGATIVE (<1000 ng/mL); Barbiturate Urine VISTA NEGATIVE (< 200 ng/mL); Benzodiazepine Urine VISTA NEGATIVE (< 200 ng/mL); Cocaine Urine VISTA NEGATIVE (< 300 ng/mL); Ecstacy Urine VISTA NEGATIVE (< 500 ng/mL); Methadone Urine VISTA NEGATIVE (< 300 ng/mL); PCP Urine VISTA NEGATIVE (< 25 ng/mL); THC Urine VISTA POSITIVE (< 50 ng/mL); Vista UDS pH Range 5
[2018-10-25 18:49] LABS: Absolute Neutrophil Count 6.4 X10^3/uL (2.0-7.7); Basophil# 0.07 X10^3/uL; Basophil% 0.6 % (0-1); Eosinophil# 0.21 X10^3/uL; Eosinophils% 1.9 % (0-5); Hematocrit 42.5 % (37-47); Hemoglobin 14.7 g/dl (12.0-15.0); Lymphocyte % 30.3 % (19-41); Mean Corp Hgb Conc 34.6 g/gl (32-36); Mean Corpuscular Hgb 29.2 pg (27.0-32.0); Mean Corpuscular Volume 84.3 fL (81-99); Mean Platelet Vol. 10.7 fl (6.2-12.0); Monocyte# 0.89 X10^3/uL; Monocyte% 8.2 % (0-10); Neutrophil # 6.37 X10^3/uL (2.7-7.7); Neutrophil % 58.4 % (47-70); Platelet Count 250 K/mm3 (150-450); RBC Distribution Width CV 13.6 % (11.6-14.6); RBC Distribution Width SD 41.4 fl (35.1-43.9); Red Blood Count 5.04 M/mm3 (4.2-5.4); White Blood Count 10.9 K/mm3 (4.4-11.0)
[2018-10-25 18:50] LABS: POSITIVE COUNT NO; POSITIVE DIFFERENTIAL NO; POSITIVE MORPHOLOGY NO
[2018-10-25 18:53] LABS: Anion Gap 9 (5-15); BUN 21 mg/dL (7-18); BUN/Creat Ratio 22.3 RATIO (10-20); Calcium,Total 9.1 mg/dL (8.5-10.1); Chloride 102 mmol/L (98-107); Creatinine, Serum 0.94 mg/dL (0.55-1.02); EST Glomerular Filtration Rate 66 mL/min (>60); Est Glom Filt Rate - Afr Amer 80 mL/min (>60); Estimated Creatinine Clearance 62.28 ml/min; Glucose 132 mg/dL (74-106); Potassium 4.3 mmol/L (3.5-5.1); Sodium Level 132 mmol/L (136-145)
--- NOTE | 2018-10-25 19:07 | ED.DCSUM_ITS ---
- ER Visit Summary Date of Service: 10/25/18 Chief Complaint: Depression History of Present Illness: The patient is a 53 F who presents with depression that has been getting worse. Patient states she took approximately 10 Zoloft tablets approximately 3 hours prior to arrival. Patient states she has increa sing stress with her nephew who lives with her. Patient denies any suicidal ideations at the present time but states when she took the pills she was having thoughts of suicide. Patient does not see a psychiatrist or counselor. Physical Examination: Vital signs are stable. Patient is afebrile. Patient is in no acute distress. Oral mucosa is pink and moist. Neck is supple. Trachea is midline. There is no JVD noted. Heart was regular rate and rhythm. Lungs are clear and equal bilateral. Abdomen is soft nontender. Cranial nerves II through XII are intact. There are no focal motor or sensory deficits noted. Patient does have a flat affect. Patient denies any suicidal or homicidal ideations at the present time. Patient is not tearful on exam. Test Results: CBC and basic metabolic profile were obtained and were within normal limits. Urine tox screen was positive for cannabinoids. Serum alcohol level was normal. Emergency Department Course and Treatment: Crisis evaluation was in to evaluate the patient. They feel patient is safe for discharge and will schedule outpatient follow-up. Patient understands and is agreeable with the plan. All questions were answered. Disposition: Discharge home Impression: Depression This note was generated with [employer] dictation software. It may contain incorrect words, spelling, and punctuation that were not noted in review of the chart prior to signing ED Disposition - Plan for ED Patient: Disposition: Home or Assisted Living Diagnosis: Depression Instructions: ED Depression, ED Contract, No Harm Referrals: Joaquim Burks DO [Primary Care Provider] -
[2018-10-25 19:27] VITALS: RESP 18; O2SAT 98
--- NOTE | 2018-10-25 19:41 | ED.RN ---
[facility]ED [facility] AND NOTIFIED THE TELEPHONE SERVICES SALES REPRESENTATIVE THAT THIS PT NEEDS TO BE EVALUATED BY [facility].
--- NOTE | 2018-10-25 19:44 | ED.RN ---
ALONDRA FROM [facility] CALLED AND STATED SHE IS ON HER WAY TO SEE THIS PT.
--- NOTE | 2018-10-25 19:50 | ED.RN ---
PT EDUCATED THAT ONLY [facility] AND [facility] CAN DECIDED IF SHE GETS ADMITTED ELSEWHERE OR GOES HOME ON A CARE PLAN. PT STATES HER NEPHEW, WHOM SHE HAS CARED FOR SINCE HE WAS 9, NOW 21, IS A HUGE STRESSOR FOR HER. 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 EMOTIONAL SUPPORT AND SUGGESTIONS GIVEN.
[2018-10-25 20:03] VITALS: RESP 16
--- NOTE | 2018-10-25 20:55 | ED.RN ---
ALONDRA FROM [facility] IS HERE TO EVALUATE THIS PT.
[2018-10-25 21:03] VITALS: RESP 18; O2SAT 98
--- NOTE | 2018-10-25 21:31 | ED.RN ---
PT GOING HOME WITH SAFETY PLAN
--- NOTE | 2018-10-25 21:36 | ED.RN ---
[facility] STATED PT WILL BE DISCHARGED HOME ON A SAFETY PLAN.
[2018-10-25 21:42] VITALS: BP 142/99; PULSE 72; RESP 18; O2SAT 97
[2018-10-25] MEDS: Acetaminophen 500 MG Tablet 1000 MG PO (21:42)
--- NOTE | 2018-10-25 22:00 | ED.RN ---
PT GAVE ME A BOTTLE OF SERTRALINE TO DISPOSE OF SHE DID NOT WANT TO TAKE THEM ANYMORE. ROTARY DRILLER PROSPECTING CONSULTED FOR PROPER DISPOSAL.
--- NOTE | 2018-10-25 22:22 | ED.RN ---
RENATA MANJARREZ SPOKE WITH THIS NURSE ABOUT THE MEDICATION THAT THE PT LEFT BEHIND. SPOKE WITH ANIYAH IN THE PHARMACY, MEDICATION BOTTLE WITH MEDS TUBED TO PHARMACY TO BE HELD BY PHARMACY
== END 2018-10-25 22:00 | disposition home or self-care (01) ==
PROVIDERS: Emergency Provider Emergency Medicine; Family Provider Student in an Organized Health Care Education/Training Program; PCP Student in an Organized Health Care Education/Training Program
DX: F32.9 Major depressive disorder, single episode, unspecified (principal); R51 Headache; E66.9 Obesity, unspecified; F41.9 Anxiety disorder, unspecified; E11.9 Type 2 diabetes mellitus without complications; I10 Essential (primary) hypertension; K21.9 Gastro-esophageal reflux disease without esophagitis; Z79.84 Long term (current) use of oral hypoglycemic drugs; Z79.899 Other long term (current) drug therapy
CPT/HCPCS: 36415; 80048; 80307; 80320; 85025; 99285; G0480

== ENCOUNTER 2019-01-01 21:50 | Emergency (ER) | payer MEDICARE, SELFPAY ==
[2019-01-01 21:50] VITALS: BP 170/95; PULSE 71; RESP 18; TEMP 36.3; O2SAT 96; BMI 43.4
--- NOTE | 2019-01-01 21:55 | EKG12_ITS ---
Test Reason : CP Blood Pressure : / mmHG Vent. Rate : 068 BPM Atrial Rate : 068 BPM P-R Int : 136 ms QRS Dur : 082 ms QT Int : 400 ms P-R-T Axes : 012 -04 048 degrees QTc Int : 425 ms Normal sinus rhythm Normal ECG Confirmed by GALINDO DUNHAM ([id number]), marketing editor COLLINS QUEZADA ([id number]) on 01/05/2019 3:36:08 PM Referred By: DR MCRAE Confirmed By:GALINDO DUNHAM
--- NOTE | 2019-01-01 22:05 | RAD_ITS ---
STUDY: X-RAY CHEST REASON FOR EXAM: Female, 53 years old. Chest pain. TECHNIQUE: Single AP portable view of the chest. COMPARISON: July 25, 2018. FINDINGS: The lungs are clear and expanded. There is no demonstrated pleural abnormality. Normal size heart. Normal mediastinum and christy. Normal visualized pulmonary arteries. Normal visualized aortic arch and descending thoracic aorta. There are diffuse degenerative changes of the visualized thoracic spine. There is degenerative osteoarthritis of the bilateral shoulders. There is no demonstrated abnormality of the visualized soft tissue structures of the upper abdomen. RAD/Chest 1 View (Portable) IMPRESSION: Degenerative changes, as described above. No demonstrated acute cardiopulmonary process. There is no interval change. Electronically Signed: Kel Ramos DO at 22:19 EDT Tel [phone], Service support ,
[2019-01-01 22:40] LABS: Absolute Lymphocyte Count 3.84 X10^3/ul (0.83-4.51); Absolute Neutrophil Count 4.4 X10^3/uL (2.0-7.7); Basophil# 0.04 X10^3/uL; Basophil% 0.4 % (0-1); Eosinophil# 0.23 X10^3/uL; Eosinophils% 2.5 % (0-5); Hematocrit 41.4 % (37-47); Hemoglobin 14.1 g/dl (12.0-15.0); Lymphocyte # 3.84 X10^3/ul (4.0); Lymphocyte % 41.6 % (19-41); Mean Corp Hgb Conc 34.1 g/gl (32-36); Mean Corpuscular Hgb 29.7 pg (27.0-32.0); Mean Corpuscular Volume 87.2 fL (81-99); Mean Platelet Vol. 11.4 fl (6.2-12.0); Monocyte# 0.61 X10^3/uL; Monocyte% 6.6 % (0-10); Neutrophil # 4.43 X10^3/uL (2.7-7.7); Neutrophil % 48.1 % (47-70); Platelet Count 217 K/mm3 (150-450); RBC Distribution Width CV 13.8 % (11.6-14.6); RBC Distribution Width SD 43.7 fl (35.1-43.9); Red Blood Count 4.75 M/mm3 (4.2-5.4); White Blood Count 9.2 K/mm3 (4.4-11.0)
[2019-01-01 22:41] LABS: POSITIVE COUNT NO; POSITIVE DIFFERENTIAL NO; POSITIVE MORPHOLOGY NO
[2019-01-01 22:56] LABS: Anion Gap 6 (5-15); BUN 21 mg/dL (7-18); BUN/Creat Ratio 19.8 RATIO (10-20); Chloride 106 mmol/L (98-107); Creatinine, Serum 1.06 mg/dL (0.55-1.02); EST Glomerular Filtration Rate 58 mL/min (>60); Est Glom Filt Rate - Afr Amer 70 mL/min (>60); Estimated Creatinine Clearance 55.23 ml/min; Glucose 189 mg/dL (74-106); Potassium 3.7 mmol/L (3.5-5.1); Sodium Level 137 mmol/L (136-145)
[2019-01-01 23:09] VITALS: BP 112/77; PULSE 67; RESP 96
--- NOTE | 2019-01-01 23:38 | ED.VIS.CHEST ---
History of Present Illness Chief Complaint: Chest Pain Informant: Patient Narrative: Patient presenting secondary to chest pain. Patient reports that since this afternoon she has been dealing with chest pain. She reports that I want to my primary care office and they wanted to admit me but I did not want to go. Patient reports that she has had persistent chest pain all afternoon. She denies any shortness of breath or lightheadedness. She does report that there is some radiation to her back and some nausea associated with this. Patient reports that she had a stress test as recently as March that was found to be negative. She denies any DVT or PE risk factors. Review of systems otherwise negative. Past Medical History - Allergies and Home Meds Allergies/Adverse Reactions: Allergies bupropion [From Wellbutrin] Allergy (Verified 01/01/19 21:50) Angioedema lisinopril Allergy (Verified 01/01/19 21:50) Angioedema sulfamethoxazole [From Bactrim] Allergy (Verified 01/01/19 21:50) Rash trimethoprim [From Bactrim] Allergy (Verified 01/01/19 21:50) Rash acetaminophen [From Vicodin] Adverse Reaction (Verified 01/01/19 21:50) Nausea/Vom/Diarrhea aspirin Adverse Reaction (Verified 01/01/19 21:50) Nausea/Vom/Diarrhea hydrocodone [From Vicodin] Adverse Reaction (Verified 01/01/19 21:50) Nausea/Vom/Diarrhea Primary Care Physician: Joaquim Burks DO [Primary Care Provider] - Surgical History: - - Tracheostomy, cholecystectomy, bilateral tubal ligation, NovaSure, bladder suspension surgery. Smoking Status: Current some day smoker - Family History Maternal Family History: Reports: Diabetes, High Cholesterol, Heart Disease, Hypertension Paternal Family History: Reports: Diabetes, High Cholesterol, Heart Disease, Hypertension Review of Systems All systems negative except as indicated Cardiovascular: Reports: Chest pain Gastrointestinal: Reports: Nausea Physical Exam Vital Signs/Narrative: Vital Signs Temp Pulse Resp BP Pulse Ox 01/01/19 23:09 67 96 H 112/77 01/01/19 21:50 97.3 F L 71 18 170/95 H 96 General: Well nourished, Well developed, No Acute Distress Head: Normocephalic, Atraumatic Eyes: Perrl, EOMI ENT: Moist mucous membranes, No rhinorrhea Neck: Supple, Nontender Cardiovascular: Regular rate, Regular rhythm, No murmurs Respiratory: No distress, CTA bilaterally, Chest nontender Abdomen: Soft, Nontender, Nondistended, Normal bowel sounds Back: Nontender, Normal Inspection Extremities: Nontender, No edema Skin: Normal color, No rash Neurological: Alert, Oriented x3, Cranial nerves II-XII grossly intact, Normal Strength, Normal Sensation Psychological: - - anxious Diagnostic/Tx/Re-eval - EKG Initial EKG Interpretation: - - Sinus rhythm at [address] segments normal T waves no evidence of acute ischemia or arrhythmia. - Medical Decision Making Patient presented secondary to chest pain. EKG shows no signs of ischemia. CBC chemistry and troponin are unremarkable. Chest x-ray unremarkable. Patient had negative stress test within the last 10 months. This was found to be negative. I believe this to be low risk cardiac chest pain. I believe the patient is safe for discharge at this point. Patient will follow-up with primary care. ED Disposition - Plan for ED Patient: Disposition: Home or Assisted Living Diagnosis: Chest pain Instructions: CHEST PAIN, NonCardiac Referrals: Joaquim Burks DO [Primary Care Provider] - 5-7 Days
[2019-01-01] MEDS: Ketorolac 15 MG/ML Vial IV (23:49)
[2019-01-01] MEDS: Ondansetron 4 MG/2 ML Vial IV (23:49)
[2019-01-01 23:56] VITALS: BP 145/79; PULSE 67; RESP 16; O2SAT 98
== END 2019-01-01 23:57 | disposition home or self-care (01) ==
PROVIDERS: Emergency Provider Emergency Medicine; Family Provider Student in an Organized Health Care Education/Training Program; PCP Student in an Organized Health Care Education/Training Program
DX: R07.9 Chest pain, unspecified (principal); R11.0 Nausea; F17.200 Nicotine dependence, unspecified, uncomplicated
CPT/HCPCS: 71045; 80048; 84484; 85025; 93005; 96374; 96375; 99284; A4216; J2405

== ENCOUNTER 2019-02-20 20:00 | Emergency (ER) | payer MEDICARE, SELFPAY ==
[2019-02-20 20:01] VITALS: BP 167/90; PULSE 72; RESP 19; TEMP 36.7; O2SAT 94; BMI 43.9
--- NOTE | 2019-02-20 20:09 | EKG12_ITS ---
Test Reason : SOB Blood Pressure : / mmHG Vent. Rate : 065 BPM Atrial Rate : 065 BPM P-R Int : 140 ms QRS Dur : 082 ms QT Int : 410 ms P-R-T Axes : 025 -03 051 degrees QTc Int : 426 ms Normal sinus rhythm Inferior infarct , age undetermined Abnormal ECG Confirmed by GALINDO DUNHAM ([id number]), video editor ELFEGO CHAVEZ ([id number]) on 02/27/2019 10:05:15 AM Referred By: NATALIA Confirmed By:GALINDO DUNHAM
[2019-02-20] MEDS: Ipratropium/Albuterol Sulfate 3 ML AMPUL.NEB INHALATION (20:26)
[2019-02-20 20:27] LABS: Absolute Lymphocyte Count 3.32 X10^3/uL (0.83-4.51); Absolute Neutrophil Count 4.6 X10^3/uL (2.0-7.7); Basophil# 0.08 X10^3/uL; Basophil% 0.9 % (0-1); Eosinophil# 0.21 X10^3/uL; Eosinophils% 2.3 % (0-5); Hematocrit 42.7 % (37-47); Hemoglobin 14.7 g/dL (12.0-15.0); Lymphocyte # 3.32 X10^3/ul (4.0); Mean Corp Hgb Conc 34.4 g/dL (32-36); Mean Corpuscular Hgb 30.7 pg (27.0-32.0); Mean Corpuscular Volume 89.1 fL (81-99); Mean Platelet Vol. 11.3 fl (6.2-12.0); Monocyte# 0.65 X10^3/uL; Monocyte% 7.2 % (0-10); NRBC Flagged by Analyzer 0 % (0-5); Neutrophil # 4.62 X10^3/uL (2.7-7.7); Neutrophil % 51.6 % (47-70); Platelet Count 206 K/mm3 (150-450); RBC Distribution Width CV 13.5 % (11.6-14.6); RBC Distribution Width SD 44.2 fl (35.1-43.9); Red Blood Count 4.79 M/mm3 (4.2-5.4)
[2019-02-20] MEDS: Albuterol 2.5 MG/3 ML VIAL.NEB. INHALATION (20:27)
[2019-02-20] MEDS: 0.9% Normal Saline 1,000 ML 150 ML IV (20:27)
[2019-02-20] MEDS: MethylPREDNISolone 125 MG/2 ML Vial IV (20:27)
[2019-02-20 20:30] VITALS: PULSE 77; RESP 18; O2SAT 98
[2019-02-20 20:33] VITALS: O2SAT 96
--- NOTE | 2019-02-20 20:39 | ED.DCSUM_ITS ---
History of Present Illness Chief Complaint: Shortness of Breath Informant: Patient Onset: Yesterday Context: Gradual Onset Timing: Continuous Current Severity: Moderate Maximum Severity: Moderate Narrative: The patient presents to the emergency department cough and shortness of breath. Patient has a history of COPD. She is not on home oxygen. She states today, she awoke and had a lot of nasal drainage and facial fullness. States she is had nonproductive cough. She was feeling short of breath. She did try inhalers with little improvement. She denies any fevers or chills. She states she has not had to be on steroids for some time history. She denies any chest pain, orthopnea, or leg swelling. Prior similar symptoms: Yes Recent Illness/Hospitalization: No Past Medical History - Allergies and Home Meds Allergies/Adverse Reactions: Allergies bupropion [From Wellbutrin] Allergy (Verified 02/20/19 20:00) Angioedema lisinopril Allergy (Verified 02/20/19 20:00) Angioedema sulfamethoxazole [From Bactrim] Allergy (Verified 02/20/19 20:00) Rash trimethoprim [From Bactrim] Allergy (Verified 02/20/19 20:00) Rash acetaminophen [From Vicodin] Adverse Reaction (Verified 02/20/19 20:00) Nausea/Vom/Diarrhea aspirin Adverse Reaction (Verified 02/20/19 20:00) Nausea/Vom/Diarrhea hydrocodone [From Vicodin] Adverse Reaction (Verified 02/20/19 20:00) Nausea/Vom/Diarrhea Primary Care Physician: Joaquim Burks DO [Primary Care Provider] - Prior records reviewed: Yes Past Medical History: - Surgical History: - - Tracheostomy, cholecystectomy, bilateral tubal ligation, NovaSure, bladder suspension surgery. Smoking Status: Former smoker Alcohol: None Drugs: None - Family History Maternal Family History: Reports: Diabetes, High Cholesterol, Heart Disease, Hypertension Paternal Family History: Reports: Diabetes, High Cholesterol, Heart Disease, Hypertension Review of Systems General: Denies: Chills, Fever, Sweats Eyes: Denies: Visual changes - bilaterally, Diplopia ENT: Reports: Bilateral ear pain, Rhinorrhea. Denies: Sore throat Cardiovascular: Denies: Chest pain, Palpitations Respiratory: Reports: Dyspnea, Cough. Denies: Dyspnea on exertion Gastrointestinal: Denies: Abdominal pain, Nausea, Vomiting, Diarrhea, Melena, Hematochezia Genitourinary: Denies: Dysuria, Hematuria, Frequency Musculoskeletal: Denies: Back pain, Extremity Pain Skin: Denies: Rash, Wounds Neurological: Denies: Headache, Weakness, Numbness Physical Exam Vital Signs/Narrative: Vital Signs Temp Pulse Resp BP Pulse Ox 02/20/19 20:01 98.1 F 72 19 H 167/90 H 94 General: Well nourished, Well developed, No Acute Distress Head: Normocephalic, Atraumatic Eyes: Perrl, EOMI ENT: Moist mucous membranes, No rhinorrhea Neck: Supple, Nontender Cardiovascular: Regular rate, Regular rhythm, No murmurs Respiratory: No distress, Chest nontender, Wheezing, Decreased Air Movement Abdomen: Soft, Nontender, Nondistended, Normal bowel sounds Back: Nontender, Normal Inspection Extremities: Nontender, No edema Skin: Normal color, No rash Neurological: Alert, Oriented x3, Cranial nerves II-XII grossly intact, Normal Strength, Normal Sensation Psychological: Normal affect, Normal Mood Diagnostic/Tx/Re-eval Chest X-Ray - ED: 1 View, Chronic Changes, No Infiltrates Clinical Impression(s) from Imaging Studies Chest X-Ray 02/20/19 20:50 IMPRESSION: No acute cardiopulmonary pathology Electronically Signed: Eben Nayak MD at 21:08 EDT , Service support , Abnormal Lab Results 02/20/19 02/20/19 20:22 20:22 WBC 9.0 RBC 4.79 Hgb 14.7 Hct 42.7 MCV 89.1 MCH 30.7 MCHC 34.4 RDW Std Deviation 44.2 H RDW Coeff of Cecil 13.5 Plt Count 206 MPV 11.3 Immature Gran % (Auto) 1.000 H Neut % (Auto) 51.6 Lymph % (Auto) 37.0 [place] % (Auto) 7.2 Eos % (Auto) 2.3 Baso % (Auto) 0.9 Absolute Neuts (auto) 4.6 Absolute Lymphs (auto) 3.32 Nucleated RBC % 0 Sodium 137 Potassium 3.9 Chloride 107 Carbon Dioxide 21.0 Anion Gap 9 BUN 15 Creatinine 0.98 Estim Creat Clear Calc 59.74 Est GFR (MDRD) Af Amer 76 Est GFR (MDRD) Non-Af 63 BUN/Creatinine Ratio 15.3 Glucose 184 H Calcium 8.7 Troponin I < 0.015 - Rhythm Strip Rhythm Strip: Sinus Rhythm Rate: 90 Ectopy: None - EKG Initial EKG Interpretation: Sinus Rhythm, No Acute Injury Pattern Prior: Unchanged - Medical Decision Making The patient presents to the emergency department cough and shortness of breath. Clinically, her symptoms do seem most consistent with a COPD exacerbation. EKG was obtained which demonstrated sinus rhythm without acute ischemia. Patient was given nebulized breathing treatments, Solu-Medrol, and metabolic work-up was pursued. With treatments, her aeration had improved and she was resting more comfortably. Chest x-ray does not show any focal infiltrative process. Screening labs are unremarkable. At this point, I do feel that she is safe for outpatient therapy as she has had no tachypnea or hypoxia. She has no accessory muscle use. She will be continued on prednisone and given her upper respiratory symptoms, I will cover her with doxycycline. The patient is comfortable with this plan of care and will be discharged home. Impression 1. COPD exacerbation ED Disposition - Plan for ED Patient: Instructions: Copd Flare Prescriptions: Prednisone [Deltasone] 40 mg PO DAILY #10 tab Prescription Printed Doxycycline 100 mg PO BID #20 cap Prescription Printed Referrals: Joaquim Burks DO [Primary Care Provider] -
[2019-02-20 20:40] VITALS: PULSE 81; RESP 18; O2SAT 97
[2019-02-20 20:47] LABS: Anion Gap 9 (5-15); BUN 15 mg/dL (7-18); BUN/Creat Ratio 15.3 RATIO (10-20); Calcium,Total 8.7 mg/dL (8.5-10.1); Chloride 107 mmol/L (98-107); Creatinine, Serum 0.98 mg/dL (0.55-1.02); EST Glomerular Filtration Rate 63 mL/min (>60); Est Glom Filt Rate - Afr Amer 76 mL/min (>60); Estimated Creatinine Clearance 59.74 ml/min; Glucose 184 mg/dL (74-106); Potassium 3.9 mmol/L (3.5-5.1); Sodium Level 137 mmol/L (136-145)
--- NOTE | 2019-02-20 20:50 | RAD_ITS ---
STUDY: X-RAY CHEST REASON FOR EXAM: Female, 53 years old. Short of breath TECHNIQUE: PA and lateral COMPARISON: January 01, 2019 FINDINGS: There is less than optimal inspiratory effort however the lungs are clear. There is no demonstrated pleural abnormality. Normal size heart. Normal mediastinum and christy. Normal visualized pulmonary arteries. Normal visualized aortic arch and descending thoracic aorta. Dorsal spine demonstrates spondylosis. Normal visualized ribs, clavicles, and shoulders. There is no demonstrated abnormality of the visualized soft tissue structures of the upper abdomen. No significant change since prior exam RAD/Chest PA and Lateral IMPRESSION: No acute cardiopulmonary pathology Electronically Signed: Eben Nayak MD at 21:08 EDT , Service support ,
[2019-02-20 21:23] VITALS: BP 148/90; PULSE 81; RESP 17; O2SAT 94
== END 2019-02-20 21:25 | disposition home or self-care (01) ==
LOC: ED 20:26
PROVIDERS: Emergency Provider Emergency Medicine; Family Provider Student in an Organized Health Care Education/Training Program; PCP Student in an Organized Health Care Education/Training Program
DX: J44.1 Chronic obstructive pulmonary disease with (acute) exacerbation (principal); Z87.891 Personal history of nicotine dependence
CPT/HCPCS: 71046; 80048; 84484; 85025; 93005; 94640; 96361; 96374; 99285; J7030

== ENCOUNTER 2019-02-21 08:23 | Emergency (ER) | payer MEDICARE, SELFPAY ==
[2019-02-20 20:01] VITALS: BMI 43.9
[2019-02-21 08:24] VITALS: BP 185/96; PULSE 108; RESP 17; TEMP 36.4; O2SAT 96; BMI 44.1
--- NOTE | 2019-02-21 08:46 | ED.VISSUMM ---
- ER Visit Summary Date of Service: 02/21/19 Chief Complaint: Shortness of breath History of Present Illness: The patient is a 53 F who presents with shortness of breath that became worse again today. Patient was seen here last night and had EKG and x-rays done. Patient also had lab work done at that time. Patient was diagnosed with a COPD exacerbation. Patient was given IV Solu-Medrol and a prescription for doxycycline and prednisone last night. Patient has not filled her doxycycline or prednisone prescriptions yet. Patient states her breathing is worse again today. Patient states it is somewhat worse with exertion. Patient denies any cough. Patient describes some throbbing in her chest. Patient admits to subjective fevers and chills but states her temperature was normal. Physical Examination: Vital signs are stable. Patient is afebrile. Patient is in no acute distress. Oral mucosa is pink and moist. Neck is supple. Trachea is midline. There is no JVD noted. Heart was regular rate and rhythm. Lungs showed few scattered wheezes. There is good respiratory effort noted. Abdomen is soft and nontender. Cranial nerves II through XII are intact. There are no focal motor or sensory deficits noted. Emergency Department Course and Treatment: Patient was given a DuoNeb aerosol here. Patient does not want repeat chest x-ray today. Patient was instructed to continue her doxycycline and prednisone as previously prescribed. Patient was instructed to follow-up with her primary care physician in 5 to 7 days. Patient understood and was agreeable with the plan. All questions were answered. Disposition: Discharge home Impression: COPD exacerbation This note was generated with [employer]here[employer] dictation software. It may contain incorrect words, spelling, and punctuation that were not noted in review of the chart prior to signing ED Disposition - Plan for ED Patient: Disposition: Home or Assisted Living Diagnosis: COPD (chronic obstructive pulmonary disease) Instructions: Copd Flare Referrals: Joaquim Burks DO [Primary Care Provider] - 3-5 Days Additional Instructions: Take your prednisone and doxycycline as prescribed
[2019-02-21 08:52] VITALS: PULSE 109; RESP 20
[2019-02-21] MEDS: Ipratropium/Albuterol Sulfate 3 ML AMPUL.NEB INHALATION (08:52)
[2019-02-21 09:32] VITALS: O2SAT 96
== END 2019-02-21 09:35 | disposition home or self-care (01) ==
LOC: ED 09:16
PROVIDERS: Emergency Provider Emergency Medicine; Family Provider Student in an Organized Health Care Education/Training Program; PCP Student in an Organized Health Care Education/Training Program
DX: J44.1 Chronic obstructive pulmonary disease with (acute) exacerbation (principal); E66.9 Obesity, unspecified; E11.9 Type 2 diabetes mellitus without complications; I10 Essential (primary) hypertension; G47.30 Sleep apnea, unspecified; F41.9 Anxiety disorder, unspecified; F32.9 Major depressive disorder, single episode, unspecified; Z79.84 Long term (current) use of oral hypoglycemic drugs; Z79.899 Other long term (current) drug therapy
CPT/HCPCS: 94640; 99284

== ENCOUNTER 2019-03-16 14:32 | Observation (INO) | payer MEDICARE, SELFPAY ==
[2019-03-16] VITALS (9 sets, daily range): BP systolic 129–161; BP diastolic 71–96; PULSE 16–79; RESP 14–18; TEMP 36.6–37.1; O2SAT 94–98; BMI 43.2; BMI 42.5; BMI 42.6
--- NOTE | 2019-03-16 15:17 | CT_ITS ---
STUDY: CT SOFT TISSUE NECK WITH CONTRAST REASON FOR EXAM: Female, 54 years old. Neck pain angioedema edema in the lateral swelling history of a tracheostomy tube removed a year ago RADIATION DOSAGE (If Supplied By Facility): CTDIvol = ( 20.56 ) mGy, DLP = ( 610.97 ) mGycm TECHNIQUE: The patient was scanned in a multi-detector CT scanner. High resolution transaxial imaging was performed following intravenous administration of 100ml IV Isovue 300. Sagittal and coronal images were reconstructed. Individualized dose optimization techniques were used for this CT. COMPARISON: May 04, 2016 CT scan soft tissues neck FINDINGS: Normal bilateral parotid glands. Normal bilateral cognos lead spaces. Normal bilateral parapharyngeal spaces. Normal bilateral carotid spaces. Normal bilateral sublingual and submandibular glands and spaces. Since prior study the nasopharyngeal soft tissues are patent and normal. The NG tubing and tracheostomy tube is been removed. Normal retropharyngeal space. Normal perivertebral space. There is a diminutive appearance of the tonsillar tissue. There are 3 remaining molars on the left side and 3-4 remaining molars on the right side. There are a few nonspecific subcentimeter cervical lymph nodes on both sides of the neck soft tissues. There is no demonstrated solid or cystic mass lesion. There is no abnormal contrast enhancement. Normal epiglottis, bilateral vallecula and hypopharynx. The pre-epiglottic and paraglottic adipose spaces are normal. Just above the level of the vocal cords, on left side there is focal scarring without evidence of inflammation. Normal subglottic trachea. There is a minimally lobulated appearance of the thyroid. There is a small cystic structure in the right side of the thyroid measuring 5 mm. Normal visualized pulmonary apices. There is a small focal left maxillary mucosa retention cyst. There is multilevel degenerative changes of the cervical spine. CT/Soft Tissue Neck WITH Contrast IMPRESSION: Status post removal of the tracheostomy tube was some residual scarring without evidence of focal inflammation no evidence for hematoma. The oropharynx and the nasopharynx and subglottic trachea appear widely patent. Electronically Signed: Luciana Contreras MD at 16:51 EDT Tel , Service support ,
--- NOTE | 2019-03-16 15:32 | ED.DCSUM_ITS ---
History of Present Illness Chief Complaint: Edema Narrative: Patient presenting for evaluation secondary to concern for swelling in the mouth and throat. Patient has a history of having angioedema in the past. She had a tracheostomy that was removed about a year ago. Patient states she woke up this morning and felt as if she was having left-sided tongue swelling, throat swelling, and some difficulty with swallowing. She denies being short of breath currently. She denies any fevers nausea or vomiting. She denies any dental pain associated with this. Past Medical History - Allergies and Home Meds Allergies/Adverse Reactions: Allergies bupropion [From Wellbutrin] Allergy (Verified 03/16/19 14:34) Angioedema lisinopril Allergy (Verified 03/16/19 14:34) Angioedema sulfamethoxazole [From Bactrim] Allergy (Verified 03/16/19 14:34) Rash trimethoprim [From Bactrim] Allergy (Verified 03/16/19 14:34) Rash acetaminophen [From Vicodin] Adverse Reaction (Verified 03/16/19 14:34) Nausea/Vom/Diarrhea aspirin Adverse Reaction (Verified 03/16/19 14:34) Nausea/Vom/Diarrhea hydrocodone [From Vicodin] Adverse Reaction (Verified 03/16/19 14:34) Nausea/Vom/Diarrhea Primary Care Physician: Joaquim Burks DO [Primary Care Provider] - Past Medical History: - - Angioedema and tracheostomy Surgical History: - - Tracheostomy, cholecystectomy, bilateral tubal ligation, NovaSure, bladder suspension surgery. Smoking Status: Current some day smoker - Family History Maternal Family History: Reports: Diabetes, High Cholesterol, Heart Disease, Hypertension Paternal Family History: Reports: Diabetes, High Cholesterol, Heart Disease, Hypertension Review of Systems All systems negative except as indicated ENT: Reports: Sore throat, - - Left-sided tongue swelling and throat pain with difficulty swallowing Physical Exam Vital Signs/Narrative: Vital Signs Temp Pulse Resp BP Pulse Ox 03/16/19 14:35 97.8 F 16 L 18 161/92 H 98 General: Well nourished, Well developed, Obese, No Acute Distress Head: Normocephalic, Atraumatic Eyes: Perrl, EOMI ENT: - - Patient has significant obesity, and physical exam of the face and neck and throat are somewhat difficult, but the patient is complaining of pain over her left mandible. Oropharyngeal exam does not demonstrate any evidence of tongue swelling or pharyngeal edema. Patient complains of pain in her submental space, and reports that she feels swollen, but I am unable to tell if this is from fluctuance or from redundant soft tissue. No evidence of overlying skin changes or erythema. Neck: Supple. Negative for: Nontender Cardiovascular: Regular rate, Regular rhythm, No murmurs Respiratory: No distress, CTA bilaterally, Chest nontender Abdomen: Soft, Nontender, Nondistended, Normal bowel sounds Back: Nontender, Normal Inspection Extremities: Nontender, No edema Skin: Normal color, No rash Neurological: Alert, Oriented x3, Cranial nerves II-XII grossly intact, Normal Strength, Normal Sensation Psychological: Normal affect, Normal Mood Diagnostic/Tx/Re-eval - Medical Decision Making Patient presented due to concern for the possibility of angioedema. Physical exam really does not seem to reproduce this, and she really actually has more bilateral tenderness her neck, and potentially some swollen glands. I did have the concern for the possibility of abscess versus Zaheer's angina, so lab work and CT were ordered which were found to be negative. Patient was given a dose of Decadron. Patient still states that she is having persistent symptoms, and is concerned that these are consistent with when she had the angioedema in the past. At this point patient will be admitted for observation to be sure that she does not have any development of airway issues. I discussed this with the ospitalist. ED Disposition - Plan for ED Patient: Disposition: Acute Care Hospital [facility] Diagnosis: Neck pain Referrals: Joaquim Burks DO [Primary Care Provider] -
[2019-03-16] MEDS: dexAMETHasone 10 MG/ML Vial IV (15:38)
[2019-03-16 16:00] LABS: Absolute Lymphocyte Count 2.32 X10^3/uL (0.83-4.51); Absolute Neutrophil Count 4.5 X10^3/uL (2.0-7.7); Basophil# 0.06 X10^3/uL; Basophil% 0.8 % (0-1); Eosinophil# 0.21 X10^3/uL; Eosinophils% 2.7 % (0-5); Hematocrit 44.1 % (37-47); Hemoglobin 14.9 g/dL (12.0-15.0); Lymphocyte # 2.32 X10^3/ul (4.0); Lymphocyte % 30.2 % (19-41); Mean Corp Hgb Conc 33.8 g/dL (32-36); Mean Corpuscular Hgb 29.9 pg (27.0-32.0); Mean Corpuscular Volume 88.4 fL (81-99); Mean Platelet Vol. 11.7 fl (6.2-12.0); Monocyte# 0.52 X10^3/uL; Monocyte% 6.8 % (0-10); NRBC Flagged by Analyzer 0 % (0-5); Neutrophil % 58.7 % (47-70); Platelet Count 184 K/mm3 (150-450); RBC Distribution Width CV 13.5 % (11.6-14.6); RBC Distribution Width SD 43.9 fl (35.1-43.9); Red Blood Count 4.99 M/mm3 (4.2-5.4); White Blood Count 7.7 K/mm3 (4.4-11.0)
[2019-03-16 16:08] LABS: Anion Gap 7 (5-15); BUN 14 mg/dL (7-18); BUN/Creat Ratio 13.9 RATIO (10-20); Calcium,Total 9.1 mg/dL (8.5-10.1); Chloride 103 mmol/L (98-107); Creatinine, Serum 1.01 mg/dL (0.55-1.02); EST Glomerular Filtration Rate 61 mL/min (>60); Est Glom Filt Rate - Afr Amer 73 mL/min (>60); Glucose 159 mg/dL (74-106); Potassium 3.8 mmol/L (3.5-5.1); Sodium Level 134 mmol/L (136-145)
--- NOTE | 2019-03-16 17:45 | PCM.HP.STD ---
Problem List (1) GERD (gastroesophageal reflux disease) Status: Chronic Qualifiers: (2) Morbid obesity Status: Chronic (3) Anxiety and depression Status: Chronic (4) Type II diabetes mellitus Status: Chronic Qualifiers: Diabetes mellitus terminal make up operator insulin use: without terminal make up operator use Diabetes mellitus complication status: with unspecified complications (5) Hypertension Status: Chronic Qualifiers: (6) Neck pain Status: Acute History of Present Illness Date of Admission: 03/16/19 Chief Complaint: Left-sided neck pain The patient is a 54 year old F with PMH as below who presents to the hospital with 1 day history of left-sided neck pain. She states she woke up this morning and under her left jaw was sore and the and felt a little bit swollen, she became immediately concerned that this could be angioedema because she was trached after having a severe episode of angioedema just had the trach removed about a year ago. Denies any shortness of breath, fevers, chills, difficulty breathing. She has not taken any new medications and she is not on lisinopril. 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 In the ER she had lab work which demonstrated a normal white blood cell count and normal electrolytes. She does CT of her neck which was unremarkable other than postsurgical changes from her trach. Past Medical History Past Medical History (Chronic Problems): Chronic Problems Tracheostomy dependence (Chronic) Anxiety (Chronic) GERD (gastroesophageal reflux disease) (Chronic) COPD (chronic obstructive pulmonary disease) (Chronic) Morbid obesity (Chronic) Anxiety and depression (Chronic) Status post tracheostomy (Chronic) Depression (Chronic) Angioedema (Chronic) Type II diabetes mellitus (Chronic) Hyperlipidemia (Chronic) Hypertension (Chronic) Allergies bupropion [From Wellbutrin] Allergy (Verified 03/16/19 14:34) Angioedema lisinopril Allergy (Verified 03/16/19 14:34) Angioedema sulfamethoxazole [From Bactrim] Allergy (Verified 03/16/19 14:34) Rash trimethoprim [From Bactrim] Allergy (Verified 03/16/19 14:34) Rash acetaminophen [From Vicodin] Adverse Reaction (Verified 03/16/19 14:34) Nausea/Vom/Diarrhea aspirin Adverse Reaction (Verified 03/16/19 14:34) Nausea/Vom/Diarrhea hydrocodone [From Vicodin] Adverse Reaction (Verified 03/16/19 14:34) Nausea/Vom/Diarrhea Home Medications: Ambulatory Orders Medication Instructions Recorded Atenolol [Tenormin (beta haley)] 100 mg PO DAILY 02/20/16 Loratadine [Claritin] 10 mg PO DAILY PRN 12/16/16 Glimepiride [Amaryl] 4 mg PO BID 05/25/17 Naproxen 500 mg PO BID 01/17/18 Fluticasone 0.05% [Flonase Nasal 1 spray NASAL DAILY 07/06/18 [place]] Lansoprazole 30 mg PO DAILY 07/06/18 Citalopram [Celexa] 40 mg PO DAILY 01/01/19 Buspirone HCl 15 mg PO TID 02/20/19 Ranitidine HCl 300 mg PO QHS 02/20/19 Spironolactone 50 mg PO DAILY 02/20/19 Surgical History: - - Tracheostomy, cholecystectomy, bilateral tubal ligation, NovaSure, bladder suspension surgery. Psychiatric History: No pertinent psych hx CARDIOVASCULAR SURGEON History: No pertinent CARDIOVASCULAR SURGEON history Smoking Status: Former smoker Tobacco Use: Cigarettes Alcohol: None Drugs: None - *Family History Maternal History Items: Diabetes, High Cholesterol, Heart Disease, Hypertension Paternal History Items: Diabetes, High Cholesterol, Heart Disease, Hypertension Review of Systems Constitutional: Denies: Chills, Fever, Weight Change HEENT: Reports: - - Left submandibular pain. Denies: Difficulty Swallowing, Ear Pain, Head Aches, Nasal Congestion, Post Nasal Drip, Sinus Congestion, Sinus Drainage, Sore Throat Cardiovascular: Denies: Chest Pain, Palpitations Respiratory: Denies: Cough, Shortness of breath at rest, Sputum production Gastrointestinal: Denies: Abdominal Pain, Nausea, Vomiting Genitourinary: Denies: Dysuria Musculoskeletal: Denies: Joint Pain, Joint Tenderness Skin: Denies: Rash, Wounds Neurological: Denies: Numbness, Tingling, Focal weakness Psychiatric: Denies: Anxiety, Depression Hematologic/ Lymphatic: Denies: Easy Bruising, Easy Bleeding VTE Information - Inpt Only VTE Present on Admission: No Patient Problems: Active and Suspected Problems Neck pain (Acute) - Physical Exam General: Alert, Oriented x3, Cooperative, No apparent distress HEENT: Atraumatic, PERRLA, EOMI, Normocephalic, - - Difficult to appreciate any lymphadenopathy secondary to her body habitus however she does have bilateral soreness at the mandibular angle on the submandibular glands. Oral: Moist Mucosa Neck: Supple, No JVD Lungs: Clear to auscultation, Normal air movement, No rhonchi, No wheeze, No rales Cardiovascular: Regular rate, Regular Rhythm, Normal S1, Normal S2, No murmurs Abdomen: Soft, Non Tender, Non-Distended, No Hepato-splenomegaly, Obese Extremities: No edema, Capillary Refill Less than 3 Seconds Skin: No rashes, No breakdown Neurological: Neuro grossly intact, Sensory exam intact to light touch and pain Psych/Mental Status: Normal Affect, Appropriate Vital Signs Temp Pulse Resp BP Pulse Ox 97.8 F 79 14 129/71 H 97 03/16/19 14:35 03/16/19 16:41 03/16/19 16:41 03/16/19 16:41 03/16/19 16:41 Oxygen Delivery Method Room Air Weight: 260 lb Body Mass Index (BMI) 43.2 Finger Stick Blood Glucose 189 Laboratory Tests Past 24 Hrs 03/16/19 03/16/19 15:45 15:45 WBC 7.7 RBC 4.99 Hgb 14.9 Hct 44.1 MCV 88.4 MCH 29.9 MCHC 33.8 RDW Std Deviation 43.9 RDW Coeff of [place] 13.5 Plt Count 184 MPV 11.7 Immature Gran % (Auto) 0.800 Neut % (Auto) 58.7 Lymph % (Auto) 30.2 [place] % (Auto) 6.8 Eos % (Auto) 2.7 Baso % (Auto) 0.8 Absolute Neuts (auto) 4.5 Absolute Lymphs (auto) 2.32 Nucleated RBC % 0 Sodium 134 L Potassium 3.8 Chloride 103 Carbon Dioxide 24.0 Anion Gap 7 BUN 14 Creatinine 1.01 Estim Creat Clear Calc 57.30 Est GFR (MDRD) Af Amer 73 Est GFR (MDRD) Non-Af 61 BUN/Creatinine Ratio 13.9 Glucose 159 H Calcium 9.1 Assessment/Plan All Active Problems Chest pain (Acute) Neck pain (Acute) Difficulty breathing (Acute) Acute pancreatitis (Acute) Upper airway obstruction (Resolved) Acute respiratory failure (Resolved) 1. Left-sided neck pain -Unsure as to the etiology of this, she does have potentially sore glands though it is difficult to tell given her body habitus -She does not have a a leukocytosis, or fever. -CT scan of the neck was unremarkable for any type of inflammatory changes or masses, and in fact is considered widely patent by the radiologist -I do not feel that she has a component of angioedema or Zaeher angina however given her anxiety about this will admit for observation. We will hold off on any further course of steroid and monitor her condition closely -No shortness of breath and pulse ox is unremarkable -In discussing this with her she is severely anxious about the risk of this being angioedema, was given Decadron in the ER. I discussed with her that this is an observation stay she will have to pay a co-pay and she is okay with that because of how concerned she has at this could be angioedema. Because of her previous history with angioedema and this is sitting intubation and a trach, will admit to PCU for observation and monitoring of her respiratory status. 2. DM 2/morbid obesity -She is on glyburide at home which we will hold and continue with a sliding scale insulin -Accu-Cheks AC at bedtime, discussed lifestyle modifications for weight loss. 3. Anxiety/depression -Stable -We will continue with Wellbutrin and Celexa 4. Hypertension -BP appears to be stable the 130s -Continue with atenolol and Aldactone 5. GERD -Stable -Continue with PPI VTE: Lovenox Code Visit OBSV E&M: [id number] Initial observation care L2
[2019-03-16 18:56] LABS: Bedside Glucose 191 mg/dL (70-110)
[2019-03-16] MEDS: Naproxen 500 MG Tablet PO (20:41)
--- NOTE | 2019-03-16 20:41 | NURSING ---
This nurse called to room, pt c/o 04/05 headache, diaphoretic. No nausea. Vitals WNL, blood sugar 269. Naproxen administered early. Will continue to monitor.
[2019-03-16] MEDS: busPIRone 15 MG TABLET PO (21:12)
[2019-03-16] MEDS: Famotidine 20 MG Tablet 40 MG PO (21:12)
[2019-03-16 21:16] LABS: Bedside Glucose 269 mg/dL (70-110)
[2019-03-16] MEDS: Insulin Lispro 100 UNIT/ML INSULN.PEN SC (21:18)
[2019-03-16 23:41] LABS: Bedside Glucose 244 mg/dL (70-110)
[2019-03-17] VITALS (7 sets, daily range): BP systolic 144–160; BP diastolic 83–104; PULSE 66–74; RESP 16–18; TEMP 36.6–36.8; O2SAT 94–96
--- NOTE | 2019-03-17 00:19 | CT_ITS ---
HISTORY:S/P FALL HITTING LEFT SIDE OF HEAD, DIZZINESS BEFORE FALL S/P FALL HITTING LEFT SIDE OF HEAD, DIZZINESS BEFORE FALL TECHNIQUE: Multiple axial images were obtained of the brain without intravenous contrast. A radiation dose optimization technique was used for this scan. IV Contrast dosage and agent: None. COMPARISON: None FINDINGS: # of images incl. paperwork: 265 INFARCT: None HEMORRHAGE: None PARENCHYMAL ATTENUATION:Mild cortical atrophy similar to prior study MASS: None MIDLINE SHIFT: None BASAL CISTERNS: Patent VENTRICLES: Normal in size and configuration for age PARANASAL SINUSES:Mucous retention cystin the left maxillary sinus MASTOID AIR CELLS: Clear ORBITS:No acute pathology CALVARIUM: No acute pathology OTHER TISSUES: Left frontal/parietal scalp hematoma ASPECTS Score for Acute Strokes: 10 CT/Brain/Head without Contrast IMPRESSION: No acute intracranial pathology. No acute intercranial pathology Individualized dose optimization techniques were used for this CT. at 0116 Reported and signed by: Luciana Matt DO Electronically Signed: Luciana Matt DO at 1:15 EDT Tel , Service support ,
[2019-03-17] MEDS: Metoclopramide 10 MG/2 ML Vial IV (00:29)
[2019-03-17] MEDS: 0.9% NaCl Peripheral Flush Adult/Peds IV (00:29)
[2019-03-17] MEDS: busPIRone 15 MG TABLET PO ×2 (05:39→14:17)
[2019-03-17] MEDS: Insulin Lispro 100 UNIT/ML INSULN.PEN SC ×2 (06:44→14:17)
[2019-03-17 06:51] LABS: Bedside Glucose 265 mg/dL (70-110)
[2019-03-17 07:17] LABS: Absolute Lymphocyte Count 1.24 X10^3/uL (0.83-4.51); Absolute Neutrophil Count 7.7 X10^3/uL (2.0-7.7); Basophil# 0.03 X10^3/uL; Basophil% 0.3 % (0-1); Eosinophil# 0.01 X10^3/uL; Eosinophils% 0.1 % (0-5); Hematocrit 44.5 % (37-47); Hemoglobin 15.3 g/dL (12.0-15.0); Lymphocyte # 1.24 X10^3/ul (4.0); Lymphocyte % 13.2 % (19-41); Mean Corp Hgb Conc 34.4 g/dL (32-36); Mean Corpuscular Hgb 30.3 pg (27.0-32.0); Mean Corpuscular Volume 88.1 fL (81-99); Mean Platelet Vol. 11.9 fl (6.2-12.0); Monocyte# 0.33 X10^3/uL; Monocyte% 3.5 % (0-10); NRBC Flagged by Analyzer 0 % (0-5); Neutrophil # 7.69 X10^3/uL (2.7-7.7); Neutrophil % 81.8 % (47-70); Platelet Count 210 K/mm3 (150-450); RBC Distribution Width CV 13.2 % (11.6-14.6); Red Blood Count 5.05 M/mm3 (4.2-5.4); White Blood Count 9.4 K/mm3 (4.4-11.0)
[2019-03-17 07:40] LABS: Anion Gap 13 (5-15); BUN 17 mg/dL (7-18); BUN/Creat Ratio 16.7 RATIO (10-20); Calcium,Total 9.2 mg/dL (8.5-10.1); Chloride 99 mmol/L (98-107); Creatinine, Serum 1.02 mg/dL (0.55-1.02); EST Glomerular Filtration Rate 60 mL/min (>60); Est Glom Filt Rate - Afr Amer 73 mL/min (>60); Estimated Creatinine Clearance 56.74 ml/min; Glucose 254 mg/dL (74-106); Potassium 4.3 mmol/L (3.5-5.1); Sodium Level 133 mmol/L (136-145)
[2019-03-17] MEDS: Acetaminophen 325 MG Tablet 650 MG PO ×2 (08:29→14:17)
[2019-03-17] MEDS: Spironolactone 50 MG Tablet PO (08:37)
[2019-03-17] MEDS: Enoxaparin 40 MG/0.4 ML Syringe SC (08:37)
[2019-03-17] MEDS: Pantoprazole Sodium 40 MG Tablet PO (08:37)
[2019-03-17] MEDS: Naproxen 500 MG Tablet PO (08:37)
[2019-03-17] MEDS: Citalopram 40 MG TABLET PO (08:37)
[2019-03-17] MEDS: Atenolol 100 MG Tablet PO (08:37)
--- NOTE | 2019-03-17 12:08 | DCINST_ITS ---
- Discharge Diagnoses Current Active Problems: Current Active and Chronic Problems Neck pain (Acute) Reason(s) for Visit for Discharge Instructions: Shortness of breath You will use the following diet at home:: Calorie/Carbohydrate Controlled (specify 1200, 1400, etc), Cardiac Your food should be the consistency of: Regular Your liquids should be the consistency of: Regular/Thin Discharge Activity: Return to Normal Activity Additional Instructions: Continue to take all your medications. Follow-up with your primary care doctor within 1-2 weeks Allergies/Adverse Reactions: Allergies bupropion [From Wellbutrin] Allergy (Verified 03/16/19 14:34) Angioedema lisinopril Allergy (Verified 03/16/19 14:34) Angioedema sulfamethoxazole [From Bactrim] Allergy (Verified 03/16/19 14:34) Rash trimethoprim [From Bactrim] Allergy (Verified 03/16/19 14:34) Rash acetaminophen [From Vicodin] Adverse Reaction (Verified 03/16/19 14:34) Nausea/Vom/Diarrhea aspirin Adverse Reaction (Verified 03/16/19 14:34) Nausea/Vom/Diarrhea hydrocodone [From Vicodin] Adverse Reaction (Verified 03/16/19 14:34) Nausea/Vom/Diarrhea Medications to take at Discharge Atenolol [Tenormin (beta haley)] 100 mg PO DAILY 02/20/16 Loratadine [Claritin] 10 mg PO DAILY PRN 12/16/16 Glimepiride [Amaryl] 4 mg PO BID 05/25/17 Naproxen 500 mg PO BID 01/17/18 Fluticasone 0.05% [Flonase Nasal [place]] 1 spray NASAL DAILY 07/06/18 Lansoprazole 30 mg PO DAILY 07/06/18 Citalopram [Celexa] 40 mg PO DAILY 01/01/19 Buspirone HCl 15 mg PO TID 02/20/19 Ranitidine HCl 300 mg PO QHS 02/20/19 Spironolactone 50 mg PO DAILY 02/20/19 Albuterol IH (ProAir) [Proair Hfa] 2 puff INHALATION Q4H PRN PRN 03/16/19 Albuterol Sulfate 2.5 mg IH Q4H PRN PRN 03/16/19 Primary Care Physician: Joaquim Burks DO [Primary Care Provider] - Please follow up with your Primary Care Physician in: within 1-2 weeks Test Results: Test results from this visit will be discussed in further detail at your follow- up appointment, if applicable. Proposed Discharge Date: 03/17/19
--- NOTE | 2019-03-17 12:10 | PCM.DC.SUM ---
Discharge Date and Diagnosis - Problem List Patient Problems: Active and Suspected Problems Neck pain (Acute) Date of Admission: 03/16/19 Date of Discharge: 03/17/19 - Primary Discharge Diagnosis Active and Suspected Problems Neck pain (Acute) - Secondary Discharge Diagnosis Chronic Problems Tracheostomy dependence (Chronic) Anxiety (Chronic) GERD (gastroesophageal reflux disease) (Chronic) COPD (chronic obstructive pulmonary disease) (Chronic) Morbid obesity (Chronic) Anxiety and depression (Chronic) Status post tracheostomy (Chronic) Depression (Chronic) Angioedema (Chronic) Type II diabetes mellitus (Chronic) Hyperlipidemia (Chronic) Hypertension (Chronic) Hospital Course and Treatment Imaging Results: Clinical Impression(s) from Imaging Studies Soft Tissue Neck CT 03/16/19 15:17 IMPRESSION: Status post removal of the tracheostomy tube was some residual scarring without evidence of focal inflammation no evidence for hematoma. The oropharynx and the nasopharynx and subglottic trachea appear widely patent. Electronically Signed: Luciana Contreras MD at 16:51 EDT Tel , Service support , Brain CT 03/17/19 00:19 IMPRESSION: No acute intracranial pathology. No acute intercranial pathology Individualized dose optimization techniques were used for this CT. at 0116 Reported and signed by: Luciana Matt DO Electronically Signed: Luciana Matt DO at 1:15 EDT Tel , Service support , None Operations: None Procedures: None Summary of Care Provided: The patient is a 54 year old F with past medical history of recurrent angioedema, history of tracheostomy (removed a year ago) was in with complaints of neck pain feeling of oral swelling. In the emergency department there was no signs of any swelling of her tongue or mouth. She is not on lisinopril on any medication could be the culprit. Her vitals were stable. Not on oxygen. Her admitting blood work was unremarkable. CT scan of the neck was unremarkable except for postsurgical changes from his tracheostomy. She was admitted to the monitored bed and monitored overnight without any changes. Her orthostatic vitals were negative. Patient was ambulated and did not require oxygen. She was managed throughout her hospital stay off oxygen. Patient to follow-up with her primary care doctor within 1 to 2 weeks. Patient Problems: Active and Suspected Problems Neck pain (Acute) Subjective: On the day of discharge, patient was seen and examined, denied any new complaints. No swelling of her gums or lips or throat No acute events overnight - Physical Exam General: Alert, Oriented x3, Cooperative, No apparent distress, - - No swelling of her lips or tongue, no conversational dyspnea HEENT: Atraumatic, PERRLA, EOMI, Normocephalic Oral: Moist Mucosa Neck: Supple Lungs: Clear to auscultation, Normal air movement Cardiovascular: Regular rate, Regular Rhythm, Normal S1, Normal S2, No murmurs Abdomen: Bowel Sounds Present, Soft, Non Tender, Non-Distended, No Hepato-splenomegaly Extremities: No edema Skin: No rashes Musculoskeletal: No Tenderness to Palpation of Joints or Extremities Lymphatic: No Cervical, Supraclavicular, or Inguinal Adenopathy Neurological: Cranial nerves II-XII grossly intact, Neuro grossly intact Psych/Mental Status: Normal Affect, Appropriate Vital Signs Temp Pulse Resp BP Pulse Ox 98.3 F 67 16 153/88 H 94 03/17/19 08:33 03/17/19 11:13 03/17/19 08:33 03/17/19 11:13 03/17/19 08:33 Oxygen Delivery Method Room Air Weight: 116.1 kg Body Mass Index (BMI) 42.5 Finger Stick Blood Glucose 189 Orthostatic Vital Signs Start: 03/17/19 11:13 Freq: q24h Status: Active Protocol: Activity Type Activity Date Activity User E-Sign Co-Sign Detail Recorded Client Recorded Date Recorded By Document 03/17/19 11:13 JAMES [id number] 03/17/19 11:18 JAMES 03/17/19 11:13 Orthostatic Vitals Standing -Blood Pressure (90/60-120/80) 158/104 H -Extremity Use Right Arm -Pulse Rate (60-100) 72 Sitting -Blood Pressure (90/60-120/80) 160/99 H -Extremity Use Right Arm -Pulse Rate (60-100) 71 Lying -Blood Pressure (90/60-120/80) 153/88 H -Extremity Use Right Arm -Pulse Rate (60-100) 67 Intake and Output for Last 24 Hours 03/15/19 03/16/19 03/17/19 23:59 23:59 23:59 Intake Total 240 / 240 Balance 240 / 240 Laboratory Tests Past 24 Hrs 03/16/19 03/16/19 03/17/19 15:45 15:45 06:37 WBC 7.7 9.4 RBC 4.99 5.05 Hgb 14.9 15.3 H Hct 44.1 44.5 MCV 88.4 88.1 MCH 29.9 30.3 MCHC 33.8 34.4 RDW Std Deviation 43.9 43.0 RDW Coeff of Cecil 13.5 13.2 Plt Count 184 210 MPV 11.7 11.9 Immature Gran % (Auto) 0.800 1.100 H Neut % (Auto) 58.7 81.8 H Lymph % (Auto) 30.2 13.2 L Perkins % (Auto) 6.8 3.5 Eos % (Auto) 2.7 0.1 Baso % (Auto) 0.8 0.3 Absolute Neuts (auto) 4.5 7.7 Absolute Lymphs (auto) 2.32 1.24 Nucleated RBC % 0 0 Sodium 134 L Potassium 3.8 Chloride 103 Carbon Dioxide 24.0 Anion Gap 7 BUN 14 Creatinine 1.01 Estim Creat Clear Calc 57.30 Est GFR (MDRD) Af Amer 73 Est GFR (MDRD) Non-Af 61 BUN/Creatinine Ratio 13.9 Glucose 159 H Calcium 9.1 03/17/19 06:37 WBC RBC Hgb Hct MCV MCH MCHC RDW Std Deviation RDW Coeff of Cecil Plt Count MPV Immature Gran % (Auto) Neut % (Auto) Lymph % (Auto) Perkins % (Auto) Eos % (Auto) Baso % (Auto) Absolute Neuts (auto) Absolute Lymphs (auto) Nucleated RBC % Sodium 133 L Potassium 4.3 Chloride 99 Carbon Dioxide 21.0 Anion Gap 13 BUN 17 Creatinine 1.02 Estim Creat Clear Calc 56.74 Est GFR (MDRD) Af Amer 73 Est GFR (MDRD) Non-Af 60 BUN/Creatinine Ratio 16.7 Glucose 254 H Calcium 9.2 POC Glucose 03/17/19 03/16/19 03/16/19 06:41 23:33 20:29 POC Glucose 265 H 244 H 269 H 03/16/19 18:52 POC Glucose 191 H Discharge Diet: Low fat/ Low Cholesterol, 2000 mg Sodium Diet, Carb Control Diet Discharge Activity: Return to Normal Activity Home Medications: Medications to take at Discharge Atenolol [Tenormin (beta haley)] 100 mg PO DAILY 02/20/16 Loratadine [Claritin] 10 mg PO DAILY PRN 12/16/16 Glimepiride [Amaryl] 4 mg PO BID 05/25/17 Naproxen 500 mg PO BID 01/17/18 Fluticasone 0.05% [Flonase Nasal [place]] 1 spray NASAL DAILY 07/06/18 Lansoprazole 30 mg PO DAILY 07/06/18 Citalopram [Celexa] 40 mg PO DAILY 01/01/19 Buspirone HCl 15 mg PO TID 02/20/19 Ranitidine HCl 300 mg PO QHS 02/20/19 Spironolactone 50 mg PO DAILY 02/20/19 Albuterol IH (ProAir) [Proair Hfa] 2 puff INHALATION Q4H PRN PRN 03/16/19 Albuterol Sulfate 2.5 mg IH Q4H PRN PRN 03/16/19 Primary Care Physician: Joaquim Burks DO [Primary Care Provider] - Please follow up with your Primary Care Physician in: within 1-2 weeks Disposition: Home Minutes spent on discharge:: 40 Patient Condition:: Stable Medical Necessity - Tobacco Use Smoking Status: Former smoker Tobacco Use: Cigarettes Meaningful Use Info Meaningful Use Diagnoses (Choose all that apply): None applicable Code Visit Inpatient E&M: 06349 Subs Hosp L2
[2019-03-17 14:26] LABS: Bedside Glucose 302 mg/dL (70-110)
== END 2019-03-17 12:07 | disposition home or self-care (01) ==
LOC: ED 17:39 → PCU 17:47
PROVIDERS: Admitting Provider Family Medicine; Emergency Provider Emergency Medicine; Family Provider Student in an Organized Health Care Education/Training Program; PCP Student in an Organized Health Care Education/Training Program; Visit Provider Internal Medicine
DX: M54.2 Cervicalgia (principal); K21.9 Gastro-esophageal reflux disease without esophagitis; F41.9 Anxiety disorder, unspecified; J44.9 Chronic obstructive pulmonary disease, unspecified; E66.01 Morbid (severe) obesity due to excess calories; I10 Essential (primary) hypertension; E78.5 Hyperlipidemia, unspecified; E11.9 Type 2 diabetes mellitus without complications; F32.9 Major depressive disorder, single episode, unspecified; Z79.899 Other long term (current) drug therapy; Z79.51 Long term (current) use of inhaled steroids; Z68.41 Body mass index [BMI] 40.0-44.9, adult; Z71.3 Dietary counseling and surveillance; Z79.84 Long term (current) use of oral hypoglycemic drugs; Z87.891 Personal history of nicotine dependence
CPT/HCPCS: 36415; 70450; 70491; 80048; 82962; 85025; 96372; 96374; 96375; 97161; 99218; 99285; Q9967; A4216; G0378

== ENCOUNTER 2019-07-06 20:07 | Emergency (ER) | payer MEDICARE, SELFPAY ==
[2019-07-06 20:07] VITALS: BMI 43.2
[2019-07-06 20:08] VITALS: BP 159/102; PULSE 90; RESP 18; TEMP 36.9; O2SAT 94; BMI 43.2
--- NOTE | 2019-07-06 20:22 | ED.VISSUMM ---
- ER Visit Summary Date of Service: 07/06/19 Chief Complaint: Rash History of Present Illness: The patient is a 54 F who presents with a rash that has been intermittent for the past 2 months. Patient states she has seen her primary care physician for this. Patient states she has changed her laundry detergent and has quit using fabric softeners and dryer sheets. Patient denies any new foods. Patient denies any other new exposures. Patient states the rash started on her arms and legs and also involves her back. Patient states the rash is pruritic. Patient states it is worse at night. Patient denies any lesions on her hands or feet. Physical Examination: Vital signs are stable. Patient is afebrile. Patient is in no acute distress. Oral mucosa is pink and moist. Oropharynx is clear. Airway is patent. Neck is supple. Trachea is midline. There is no JVD. Heart was regular rate and rhythm. Lungs are clear and equal bilaterally. Abdomen is soft and nontender. Cranial nerves II through XII are intact. There are no focal motor or sensory deficits noted. There is a patchy urticarial rash noted over the upper and lower extremities bilaterally. There is also lesions noted on her back. There are no lesions on the palms or soles. There is no involvement of the mucous membranes. Emergency Department Course and Treatment: Patient was given a prescription for prednisone. Patient was instructed to follow-up with her primary care physician in 5 to 7 days. Patient was instructed to return if any difficulty breathing or difficulty swallowing. Patient understood and was agreeable with the plan. All questions were answered. Disposition: Discharge home Impression: 1. Allergic dermatitis This note was generated with [employer] dictation software. It may contain incorrect words, spelling, and punctuation that were not noted in review of the chart prior to signing ED Disposition - Plan for ED Patient: Disposition: Home or Assisted Living Diagnosis: Dermatitis Instructions: ALLERGIC REACTION, Other (General) Prescriptions: predniSONE tablet 60 mg PO DAILY #15 tab Prescription Printed Referrals: Joaquim Burks DO [Primary Care Provider] - 3-5 Days
== END 2019-07-06 20:37 | disposition home or self-care (01) ==
LOC: ED 20:23
PROVIDERS: Emergency Provider Emergency Medicine; Family Provider Student in an Organized Health Care Education/Training Program; PCP Student in an Organized Health Care Education/Training Program
DX: L23.9 Allergic contact dermatitis, unspecified cause (principal); R05 Cough; R51 Headache; E66.9 Obesity, unspecified; E11.9 Type 2 diabetes mellitus without complications; I10 Essential (primary) hypertension; G47.30 Sleep apnea, unspecified; F32.9 Major depressive disorder, single episode, unspecified; Z79.84 Long term (current) use of oral hypoglycemic drugs; Z79.899 Other long term (current) drug therapy
CPT/HCPCS: 99282

== ENCOUNTER 2019-07-10 18:16 | Inpatient (IN) | payer MEDICARE, SELFPAY ==
[2019-07-10 18:17] VITALS: BP 162/82; PULSE 90; RESP 20; TEMP 36.8; O2SAT 95; BMI 42.5
[2019-07-10 18:46] LABS: Bedside Glucose > 500 mg/dL (70-110)
--- NOTE | 2019-07-10 19:12 | EKG12_ITS ---
Test Reason : HYPERGLYCEMIA Blood Pressure : / mmHG Vent. Rate : 076 BPM Atrial Rate : 076 BPM P-R Int : 156 ms QRS Dur : 086 ms QT Int : 370 ms P-R-T Axes : 044 -08 053 degrees QTc Int : 416 ms Normal sinus rhythm Inferior infarct (cited on or before 20-FEB-2019) Abnormal ECG Confirmed by JOHANN LEPE, HAZEL ([id number]), deputy editor in chief ELFEGO CHAVEZ ([id number]) on 07/13/2019 9:59:21 AM Referred By: Confirmed By:GILL WILLS MD
--- NOTE | 2019-07-10 19:13 | ED.VISSUMM ---
- ER Visit Summary Date of Service: 07/10/19 Chief Complaint: Elevated blood sugar History of Present Illness: The patient is a 54 F presenting with elevated blood sugar. Patient states her blood sugar has been running high over the past several days. She was put on steroids for a rash on her right arm on Tuesday. She states since that time she has had difficulty controlling her blood sugar at home. Her rash is improving. She complains of overall not feeling well. She has shortness of breath and cough. She feels generally weak and fatigued. Physical Examination: Vitals are stable. Patient is afebrile. Alert no acute distress. HEENT exam is unremarkable. Neck is supple. Lungs are clear and equal bilaterally. Heart is regular rate and rhythm. Abdomen is soft nontender nondistended. Extremities maculopapular rash right upper extremity Skin is warm and dry. No focal neurologic deficit. Remainder of exam is unremarkable. Emergency Department Course and Treatment: Patient was given IV fluids. CBC, chemistries show sodium 132, glucose 565, creatinine 1.59. Urinalysis unremarkable. Troponin is negative. Serum ketones are negative. She was given insulin subcutaneously. She continues to feel weak and does not feel well enough to go home. Discussed with hospitalist for admission. Disposition: Admission Impression: Hyperglycemia, EMILIO This note was generated with [employer] dictation software. It may contain incorrect words, spelling, and punctuation that were not noted in review of the chart prior to signing ED Disposition - Plan for ED Patient: Disposition: [facility]
--- NOTE | 2019-07-10 19:17 | RAD_ITS ---
STUDY: X-RAY CHEST REASON FOR EXAM: Female, 54 years old. shortness of breath TECHNIQUE: Portable chest COMPARISON: 02/20/2019 FINDINGS: The lungs are clear and expanded. There is no demonstrated pleural abnormality. Normal size heart. Normal mediastinum and christy. Normal visualized pulmonary arteries. Normal visualized aortic arch and descending thoracic aorta. Normal visualized thoracic spine. Normal visualized ribs, clavicles, and shoulders. There is no demonstrated abnormality of the visualized soft tissue structures of the upper abdomen. RAD/Chest 1 View (Portable) IMPRESSION: Normal x-ray examination of the chest. Electronically Signed: Kannan Jerry, at 7:59 EST Tel , Service support ,
[2019-07-10 19:21] LABS: Absolute Lymphocyte Count 1.29 X10^3/uL (0.83-4.51); Absolute Neutrophil Count 6.4 X10^3/uL (2.0-7.7); Basophil# 0.04 X10^3/uL; Basophil% 0.5 % (0-1); Hematocrit 43.3 % (37-47); Hemoglobin 14.4 g/dL (12.0-15.0); Lymphocyte # 1.29 X10^3/ul (4.0); Lymphocyte % 15.8 % (19-41); Mean Corp Hgb Conc 33.3 g/dL (32-36); Mean Corpuscular Volume 90.2 fL (81-99); Mean Platelet Vol. 11.8 fl (6.2-12.0); Monocyte# 0.23 X10^3/uL; Monocyte% 2.8 % (0-10); NRBC Flagged by Analyzer 0 % (0-5); Neutrophil % 78.1 % (47-70); POSITIVE MORPHOLOGY YES; Platelet Count 231 K/mm3 (150-450); RBC Distribution Width CV 12.3 % (11.6-14.6); RBC Distribution Width SD 40.8 fl (35.1-43.9); White Blood Count 8.2 K/mm3 (4.4-11.0)
[2019-07-10 19:22] LABS: Differential Indicated SCAN CRITERIA MET
[2019-07-10] MEDS: 0.9% Normal Saline 1,000 ML 1000 ML IV (19:25)
[2019-07-10 19:33] LABS: Bacteria 0 SEEN /hpf (None Seen); Mucous, Urine 0 SEEN /hpf (<or=2+); Red Blood Cells-Urine 0 SEEN /hpf (0-5); Squamous Epithelial Cells - UA 0 SEEN /hpf (5-10); White Blood Cells 0 SEEN /hpf (0-5)
[2019-07-10 19:39] LABS: Color, Urine Yellow (Yellow); Glucose, Dipstick 1000 mg/dl (Normal); Ketone-Dipstick 5 mg/dl (Negative); Leukocyte Esterase-Dipstick Negative /ul (Negative); Nitrite-Dipstick Negative (Negative); Occult Blood-Urine Negative /ul (Negative); Protein-Dipstick Negative (Negative); Specific Gravity, Urine 1.015 (1.002-1.030); Urine Bilirubin Dipstick Negative (Negative); Urine Clarity Clear (Clear); Urine Urobilinogen Normal (Normal)
[2019-07-10 19:41] LABS: Anion Gap 13 (5-15); BUN 26 mg/dL (7-18); BUN/Creat Ratio 16.4 RATIO (10-20); Calcium,Total 8.9 mg/dL (8.5-10.1); Chloride 101 mmol/L (98-107); Creatinine, Serum 1.59 mg/dL (0.55-1.02); Differential Comment SCANNED; EST Glomerular Filtration Rate 36 mL/min (>60); Est Glom Filt Rate - Afr Amer 44 mL/min (>60); Glucose 565 mg/dL (74-106); Potassium 4.5 mmol/L (3.5-5.1); Sodium Level 132 mmol/L (136-145)
--- NOTE | 2019-07-10 20:30 | PCM.HP.STD ---
Problem List (1) EMILIO (acute kidney injury) Status: Acute (2) Hyperglycemia Status: Acute (3) Morbid obesity Status: Chronic (4) SHARMIN (obstructive sleep apnea) Status: Chronic (5) Former tobacco use Status: Chronic (6) Anxiety Status: Chronic (7) GERD (gastroesophageal reflux disease) Status: Chronic Qualifiers: Esophagitis presence: esophagitis presence not specified (8) COPD (chronic obstructive pulmonary disease) Status: Chronic Qualifiers: COPD type: unspecified COPD Qualified Code(s): J44.9 - Chronic obstructive pulmonary disease, unspecified (9) Depression Status: Chronic Qualifiers: Depression Type: unspecified Qualified Code(s): F32.9 - Major depressive disorder, single episode, unspecified (10) Type II diabetes mellitus Status: Chronic Qualifiers: Diabetes mellitus correction insulin use: without termite treater helper use Diabetes mellitus complication status: with other specified complication Qualified Code(s): E11.69 - Type 2 diabetes mellitus with other specified complication (11) Hyperlipidemia Status: Chronic Qualifiers: Hyperlipidemia type: unspecified (12) Hypertension Status: Chronic Qualifiers: Hypertension type: essential hypertension History of Present Illness Date of Admission: 07/10/19 Chief Complaint: Elevated BS, recently on steroids for rash The patient is a 54 y/o F w/ PMHx: Morbid Obesity, HTN, HLD, Anxiety and Depression, GERD, Diabetes mellitus type II who presents to the [facility] ED on 07/10/19 with history of recent outpatient evaluation for diffuse extremity as well as thorax rash felt secondary to close washing detergent that was new with initiation the Tuesday prior on prednisone 60 mg daily and since difficulties controlled her BS with poor oral intake, polyuria, fatigue malaise although admitted improvement to the diffuse rash but does note ongoing itching and has frequently been scratching herself prompting eventual ED presentation. Notes she has been having polyuria and polydipsia. She denies any recent fevers or chills. Work-up in the ED included CBC w/ WBC 8.2, Hgb 14.4, Plts 231 without marked L shift, BMP w/ Na 132, CO2 18, BUN/Cr 26/1.59, glucose 565, UA w/ glucose 1000, ketone 5, SG 1.015. In the ED patient administered insulin 15 u SC x 1 and NS. Past Medical History Past Medical History (Chronic Problems): Chronic Problems Morbid obesity (Chronic) SHARMIN (obstructive sleep apnea) (Chronic) Former tobacco use (Chronic) Tracheostomy dependence (Chronic) Anxiety (Chronic) GERD (gastroesophageal reflux disease) (Chronic) COPD (chronic obstructive pulmonary disease) (Chronic) Morbid obesity (Chronic) Anxiety and depression (Chronic) Status post tracheostomy (Chronic) Depression (Chronic) Angioedema (Chronic) Type II diabetes mellitus (Chronic) Hyperlipidemia (Chronic) Hypertension (Chronic) Allergies bupropion [From Wellbutrin] Allergy (Verified 07/10/19 18:17) Angioedema lisinopril Allergy (Verified 07/10/19 18:17) Angioedema sulfamethoxazole [From Bactrim] Allergy (Verified 07/10/19 18:17) Rash trimethoprim [From Bactrim] Allergy (Verified 07/10/19 18:17) Rash acetaminophen [From Vicodin] Adverse Reaction (Verified 07/10/19 18:17) Nausea/Vom/Diarrhea aspirin Adverse Reaction (Verified 07/10/19 18:17) Nausea/Vom/Diarrhea hydrocodone [From Vicodin] Adverse Reaction (Verified 07/10/19 18:17) Nausea/Vom/Diarrhea Home Medications: Ambulatory Orders Medication Instructions Recorded Loratadine [Claritin] 10 mg PO DAILY 12/16/16 Glimepiride [Amaryl] 4 mg PO BID 05/25/17 Fluticasone 0.05% [Flonase Nasal 1 spray NASAL DAILY PRN PRN 07/06/18 [place]] Lansoprazole 30 mg PO DAILY 07/06/18 Citalopram [Celexa] 40 mg PO QHS 01/01/19 Buspirone HCl 15 mg PO TID 02/20/19 Ranitidine HCl 300 mg PO QHS 02/20/19 Spironolactone 50 mg PO DAILY 02/20/19 Albuterol IH (ProAir) [Proair Hfa] 2 puff INHALATION Q4H PRN PRN 03/16/19 Albuterol Sulfate 2.5 mg IH Q4H PRN PRN 03/16/19 Atenolol [Tenormin (beta haley)] 100 mg PO DAILY 07/10/19 Diphenhydramine HCl [Benadryl 25 mg PO DAILY PRN PRN 07/10/19 Allergy] Insulin Glargine [Lantus SoloStar 10 units SUBCUT QHS 07/10/19 Pen] Meloxicam 15 mg PO DAILY PRN 07/10/19 Prednisone 60 mg PO DAILY 07/10/19 Zolpidem Tartrate [Ambien 5 mg PO QHS 07/10/19 (Generic)] Surgical History: - - Tracheostomy, cholecystectomy, bilateral tubal ligation, NovaSure, bladder suspension surgery. 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 Tobacco Use: Cigarettes Alcohol: None Drugs: None - *Family History Maternal History Items: Diabetes, High Cholesterol, Heart Disease, Hypertension Paternal History Items: Diabetes, High Cholesterol, Heart Disease, Hypertension Review of Systems Constitutional: Reports: Anorexia, Malaise, Weakness, Fatigue. Denies: Chills, Fever, Weight Change HEENT: Denies: Head Aches, Sinus Congestion, Sinus Drainage Cardiovascular: Denies: Chest Pain, Palpitations Respiratory: Reports: Cough. Denies: Shortness of breath at rest, Sputum production Gastrointestinal: Denies: Abdominal Pain, Nausea, Vomiting Genitourinary: Reports: Frequency. Denies: Dysuria Musculoskeletal: Reports: Joint Pain, Muscle pain. Denies: Joint Tenderness Skin: Reports: Rash, Skin Changes. Denies: Wounds Neurological: Denies: Numbness, Tingling, Focal weakness Psychiatric: Reports: Anxiety, Depression. Denies: Homicidal Ideations, Suicidal Ideations Hematologic/ Lymphatic: Denies: Easy Bruising, Easy Bleeding VTE Information - Inpt Only VTE Present on Admission: No VTE Mechan Device Prophylaxis: SCD's VTE Pharm Prophylaxis ordered?: Yes Patient Problems: Active and Suspected Problems Hyperglycemia (Acute) EMILIO (acute kidney injury) (Acute) Subjective: Patient seated upright in the ED bed, fatigued appearance, notes she needs to urinate again, notes some itching still to her extremities but improved rash. Objective: Physical Examination: General: awake, alert, oriented x 3 and cooperative, seated upright in the ED bed in no apparent distress. Skin: normal color, turgor, no icterus, cyanosis except noted healing diffuse extremity as well as thorax prior dermatitis, regions of abrasion likely from itching, no obvious cellulitis or active bleeding. HEENT: AT/NC, EOMI, PERRLA, mildly dry MM, no carotid bruits or JVD noted however thickened neck makes examination difficult, evidence prior tracheostomy. Lungs: CTA bilaterally, moderate effort, moderate decrease BL bases, no rales, ronchi or wheezing. Heart: Regular, rate and rhythm; no gallop, rub audible. Abdomen: soft, morbidly obese, NTTP, ND, normal BS, no HSM; however, habitus makes examination difficult. Extremities: no cyanosis, clubbing, or edema. Neurological: patient awake, alert, oriented x 3; cognitive function intact; pupils equally reactive to light and accomodation; cranial nerves II-XII grossly normal, moving all 4 extremities, no focal deficits, strength mildly to moderately globally decreased secondary to acute presentation. Psychiatric: affect appears fatigued, no acute evidence of depressive or anxiety feelings. - Physical Exam Vitals/I&O's: Vital Signs Temp Pulse Resp BP Pulse Ox 98.3 F 90 20 H 162/82 H 95 07/10/19 18:17 07/10/19 18:17 07/10/19 18:17 07/10/19 18:17 07/10/19 18:17 Oxygen Delivery Method Room Air Weight: 255 lb 8.252 oz Body Mass Index (BMI) 42.5 Finger Stick Blood Glucose 542 Laboratory Results 07/10/19 18:34: WBC 8.2, RBC 4.80, Hgb 14.4, Hct 43.3, MCV 90.2, MCH 30.0, MCHC 33.3, RDW Std Deviation 40.8, RDW Coeff of Cecil 12.3, Plt Count 231, MPV 11.8, Immature Gran % (Auto) 2.800 H, Neut % (Auto) 78.1 H, Lymph % (Auto) 15.8 L, [place] % (Auto) 2.8, Eos % (Auto) 0.0, Baso % (Auto) 0.5, Absolute Neuts (auto) 6.4, Absolute Lymphs (auto) 1.29, Nucleated RBC % 0, Differential Comment SCANNED 07/10/19 18:34: Sodium 132 L, Potassium 4.5, Chloride 101, Carbon Dioxide 18.0 L, Anion Gap 13, BUN 26 H, Creatinine 1.59 H, Estim Creat Clear Calc 36.40, Est GFR (MDRD) Af Amer 44 L, Est GFR (MDRD) Non-Af 36 L, BUN/Creatinine Ratio 16.4, Glucose 565 H*, Calcium 8.9, Troponin I < 0.015 07/10/19 18:34: Acetone Level NEGATIVE 07/10/19 18:39: POC Glucose > 500 H* 07/10/19 19:30: Urine Color Yellow, Urine Clarity Clear, Urine pH 6.0, Ur Specific [place] 1.015, Urine Protein Negative, Urine Glucose (UA) 1000 H, Urine Ketones 5 H, Urine Occult Blood Negative, Urine Nitrite Negative, Urine Bilirubin Negative, Urine Urobilinogen Normal, Ur Leukocyte Esterase Negative, Urine RBC 0 SEEN, Urine WBC 0 SEEN, Ur Squamous Epith Cells 0 SEEN, Urine Bacteria 0 SEEN, Urine Mucus 0 SEEN Assessment/Plan All Active Problems Chest pain (Acute) Neck pain (Acute) Hyperglycemia (Acute) EMILIO (acute kidney injury) (Acute) Difficulty breathing (Acute) Acute pancreatitis (Acute) Upper airway obstruction (Resolved) Acute respiratory failure (Resolved) The patient is a 54 y/o F w/ PMHx: Morbid Obesity, HTN, HLD, Anxiety and Depression, GERD, Diabetes mellitus type II who presents to the [facility] ED on 07/10/19 with history of recent outpatient evaluation for diffuse extremity as well as thorax rash felt secondary to close washing detergent that was new with initiation the Tuesday prior on prednisone 60 mg daily and since difficulties controlled her BS with poor oral intake, polyuria, fatigue malaise. 1. Diabetes mellitus type II with Hyperglycemia: Likely secondary to recent aggressive steroid usage, will hold, will admit to the medical surgical floor, will obtain hemoglobin A1c level, will obtain nutrition consultation for education and teaching, will continue patient home long-acting as well as short-acting with medium to high insulin sliding scale, will aggressively hydrate with additional 1 L saline bolus and continue maintenance IV fluids, continue to trend BMP. 2. Acute kidney injury: Secondary to #1, acute presentation with also poor oral intake and notable urine output with hyperglycemia. Admission BUN/Cr 26/1.59, prior baseline creatinine noted to be 1.0. Will hydrate, hold nephrotoxic medications and repeat chemistry this evening and if not clinically improving would also obtain renal ultrasound and FeNa assessment, if improving will defer US with also repeat BMP in AM. 3. Recent dermatitis with significant pruritus: We will discontinue patient oral steroid regimen, last dose was tomorrow, will have PRN low-dose steroid twice daily cream for itching. Advised strongly that patient use hypoallergenic items to wash her clothes. 4. Hypertension: We will continue patient home atenolol, holding patient spironolactone and hydrochlorothiazide given acute kidney injury, resume once clinically appropriate, PRN IV hydralazine in interim. 5. Anxiety and depression: We will continue patient home Celexa and BuSpar regimen but if worsened renal status may need to hold. 6. Morbid Obesity: Weight loss and lifestyle changes encouraged, nutrition consulted. 7. Chronic COPD: Status post prior tracheostomy secondary to history of angioedema, ATC duonebs, PRN albuterol, HOB, IS parameters. 8. Former tobacco use: Encouraged continued tobacco cessation. 9. GERD: We will maintain on PPI given EMILIO presentation. 10. SHARMIN: Noncompliant with CPAP. 11. DVT prophylaxis: SCDs, heparin. Code Visit Inpatient E&M: 41661 Init Hosp L3
[2019-07-10 20:32] VITALS: BP 151/79; PULSE 73; RESP 19; TEMP 36.8; O2SAT 98
[2019-07-10] MEDS: Insulin Lispro 100 UNIT/ML INSULN.PEN 15 UNIT SC (20:38)
[2019-07-10 20:41] VITALS: BP 151/79; PULSE 73; RESP 19; TEMP 36.8; O2SAT 98
[2019-07-10 21:31] LABS: Bedside Glucose 382 mg/dL (70-110)
[2019-07-10 21:58] VITALS: BMI 43.9
--- NOTE | 2019-07-10 21:58 | US_ITS ---
STUDY: RENAL ULTRASOUND - COMPLETE REASON FOR EXAM: Female, 54 years old. EMILIO TECHNIQUE: Ultrasound evaluation of the kidneys was performed with real-time and static sanabria-scale imaging. COMPARISON: July 06, 2018 CT scan abdomen and pelvis FINDINGS: RIGHT KIDNEY: Normal location of the right kidney, which is normal in size. The right kidney measures 13.3 x 5.0 x 6.4 cm. There is a normal cortex of the right kidney. The renal cortex measures 2.0 cm. There is no right renal mass or cyst. There is a 3 mm calcification in the right kidney. These are better seen on the CT within the ultrasound. There is no right hydronephrosis. DISTAL RIGHT URETER: There is non-visualization of the distal right ureter. There is no demonstrated right ureterovesical junction calculus. There is no demonstrated right ureteral jet. LEFT KIDNEY: Normal location of the left kidney, which is normal in size. The left kidney measures 12.3 x 5.5 x 6.0 cm. There is a normal cortex of the left kidney. The renal cortex measures 1.9 cm. There is no left renal mass or cyst. As seen on the recent prior study there is an echogenicity within the left kidney that may measure 3 mm. There is no left hydronephrosis. DISTAL LEFT URETER: There is non-visualization of the distal left ureter. There is no demonstrated left ureterovesical junction calculus. There is no demonstrated left ureteral jet. BLADDER: The distended urinary bladder has a volume of 112.4 ml. . There is a normal wall thickness of the distended urinary bladder. There is no demonstrated mass within the urinary bladder. There are no demonstrated bladder calculi. US/Kidney and Bladder IMPRESSION: Bilateral renal stones. No evidence of hydronephrosis. Electronically Signed: Luciana Contreras MD at 22:54 EST Tel , Service support ,
[2019-07-10 22:15] VITALS: BP 152/81; PULSE 66; RESP 18; TEMP 36.8; O2SAT 94
[2019-07-10 22:16] VITALS: BMI 43.9
[2019-07-10 22:26] LABS: Bedside Glucose 305 mg/dL (70-110)
[2019-07-10 22:35] LABS: Hemoglobin A1c 8.2 % (4.2-6.3)
[2019-07-10 22:48] LABS: Urine Sodium 63 mmol/L (Not Establ.)
[2019-07-10] MEDS: 0.9% Normal Saline 1,000 ML 999 ML IV ×2 (22:51→23:18)
[2019-07-10] MEDS: 0.9% Saline Lock 10 ML Syringe IV (22:52)
[2019-07-10] MEDS: Insulin Lispro 100 UNIT/ML INSULN.PEN SC (22:52)
[2019-07-10] MEDS: Heparin Injection (Vial) 5,000 UNIT/ML VIAL 5000 UNIT SC (22:53)
[2019-07-10] MEDS: busPIRone 15 MG TABLET PO (22:54)
[2019-07-10] MEDS: MELATONIN 3 MG TABLET PO (22:56)
[2019-07-10 23:48] LABS: Anion Gap 7 (5-15); BUN 22 mg/dL (7-18); BUN/Creat Ratio 18.5 RATIO (10-20); Calcium,Total 8.5 mg/dL (8.5-10.1); Chloride 110 mmol/L (98-107); Creatinine, Serum 1.19 mg/dL (0.55-1.02); EST Glomerular Filtration Rate 50 mL/min (>60); Est Glom Filt Rate - Afr Amer 61 mL/min (>60); Estimated Creatinine Clearance 48.63 ml/min; Glucose 306 mg/dL (74-106); Potassium 4.2 mmol/L (3.5-5.1); Sodium Level 139 mmol/L (136-145)
[2019-07-11] MEDS: 0.9% Normal Saline 1,000 ML 125 ML IV ×2 (00:24→08:16)
[2019-07-11 03:33] VITALS: RESP 18; O2SAT 95
[2019-07-11 04:15] VITALS: BP 147/67; PULSE 68; RESP 16; TEMP 36.9; O2SAT 95
[2019-07-11 06:22] LABS: Absolute Lymphocyte Count 3.29 X10^3/uL (0.83-4.51); Absolute Neutrophil Count 5.6 X10^3/uL (2.0-7.7); Basophil# 0.04 X10^3/uL; Basophil% 0.4 % (0-1); Eosinophil# 0.04 X10^3/uL; Eosinophils% 0.4 % (0-5); Hematocrit 37.3 % (37-47); Hemoglobin 12.3 g/dL (12.0-15.0); Lymphocyte # 3.29 X10^3/ul (4.0); Lymphocyte % 32.3 % (19-41); Mean Corpuscular Hgb 30.1 pg (27.0-32.0); Mean Corpuscular Volume 91.4 fL (81-99); Mean Platelet Vol. 11.4 fl (6.2-12.0); Monocyte# 1.12 X10^3/uL; NRBC Flagged by Analyzer 0 % (0-5); Neutrophil # 5.55 X10^3/uL (2.7-7.7); Neutrophil % 54.4 % (47-70); Platelet Count 189 K/mm3 (150-450); RBC Distribution Width CV 12.5 % (11.6-14.6); RBC Distribution Width SD 41.3 fl (35.1-43.9); Red Blood Count 4.08 M/mm3 (4.2-5.4); White Blood Count 10.2 K/mm3 (4.4-11.0)
[2019-07-11] MEDS: Insulin Lispro 100 UNIT/ML INSULN.PEN SC (06:32)
[2019-07-11] MEDS: busPIRone 15 MG TABLET PO (06:32)
[2019-07-11 06:41] LABS: Bedside Glucose 161 mg/dL (70-110)
[2019-07-11 06:48] LABS: Anion Gap 5 (5-15); BUN 21 mg/dL (7-18); BUN/Creat Ratio 24.7 RATIO (10-20); Calcium,Total 8.2 mg/dL (8.5-10.1); Chloride 111 mmol/L (98-107); Creatinine, Serum 0.85 mg/dL (0.55-1.02); EST Glomerular Filtration Rate 74 mL/min (>60); Est Glom Filt Rate - Afr Amer 90 mL/min (>60); Estimated Creatinine Clearance 68.08 ml/min; Glucose 172 mg/dL (74-106); Potassium 3.9 mmol/L (3.5-5.1); Sodium Level 139 mmol/L (136-145)
[2019-07-11 07:37] VITALS: O2SAT 94
--- NOTE | 2019-07-11 07:39 | PN_ITS ---
Patient Problems: Active and Suspected Problems Hyperglycemia (Acute) EMILIO (acute kidney injury) (Acute) Vitals/I&O's: Vital Signs Temp Pulse Resp BP Pulse Ox 98.5 F 68 16 147/67 H 94 07/11/19 04:15 07/11/19 04:15 07/11/19 04:15 07/11/19 04:15 07/11/19 07:37 Oxygen Delivery Method Room Air Weight: 263 lb 10.766 oz Body Mass Index (BMI) 43.9 Finger Stick Blood Glucose 382 Intake and Output for Last 24 Hours 07/09/19 07/10/19 07/11/19 23:59 23:59 23:59 Intake Total 1999 1000 / 1000 Output Total 725 / 725 Balance 1999 275 / 275 Laboratory Results 07/10/19 18:34: WBC 8.2, RBC 4.80, Hgb 14.4, Hct 43.3, MCV 90.2, MCH 30.0, MCHC 33.3, RDW Std Deviation 40.8, RDW Coeff of Eccil 12.3, Plt Count 231, MPV 11.8, Immature Gran % (Auto) 2.800 H, Neut % (Auto) 78.1 H, Lymph % (Auto) 15.8 L, [place] % (Auto) 2.8, Eos % (Auto) 0.0, Baso % (Auto) 0.5, Absolute Neuts (auto) 6.4, Absolute Lymphs (auto) 1.29, Nucleated RBC % 0, Differential Comment SCANNED 07/10/19 18:34: Sodium 132 L, Potassium 4.5, Chloride 101, Carbon Dioxide 18.0 L , Anion Gap 13, BUN 26 H, Creatinine 1.59 H, Estim Creat Clear Calc 36.40, Est GFR (MDRD) Af Amer 44 L, Est GFR (MDRD) Non-Af 36 L, BUN/Creatinine Ratio 16.4, Glucose 565 H*, Calcium 8.9, Troponin I < 0.015 07/10/19 18:34: Acetone Level NEGATIVE 07/10/19 18:34: Hemoglobin A1c 8.2 H 07/10/19 18:39: POC Glucose > 500 H* 07/10/19 19:30: Urine Color Yellow, Urine Clarity Clear, Urine pH 6.0, Ur Specific [place] 1.015, Urine Protein Negative, Urine Glucose (UA) 1000 H, Urine Ketones 5 H, Urine Occult Blood Negative, Urine Nitrite Negative, Urine Bilirubin Negative, Urine Urobilinogen Normal, Ur Leukocyte Esterase Negative, Urine RBC 0 SEEN, Urine WBC 0 SEEN, Ur Squamous Epith Cells 0 SEEN, Urine Bacteria 0 SEEN, Urine Mucus 0 SEEN 07/10/19 19:30: Ur Random Sodium 63, Urine Creatinine 43.00 07/10/19 21:26: POC Glucose 382 H 07/10/19 22:21: POC Glucose 305 H 07/10/19 22:54: Sodium 139, Potassium 4.2, Chloride 110 H, Carbon Dioxide 22.0, Anion Gap 7, BUN 22 H, Creatinine 1.19 H, Estim Creat Clear Calc 48.63, Est GFR (MDRD) Af Amer 61, Est GFR (MDRD) Non-Af 50 L, BUN/Creatinine Ratio 18.5, Glucose 306 H, Calcium 8.5 07/11/19 06:00: WBC 10.2, RBC 4.08 L, Hgb 12.3, Hct 37.3, MCV 91.4, MCH 30.1, MCHC 33.0, RDW Std Deviation 41.3, RDW Coeff of Cecil 12.5, Plt Count 189, MPV 11.4, Immature Gran % (Auto) 1.500 H, Neut % (Auto) 54.4, Lymph % (Auto) 32.3, [place] % (Auto) 11.0 H, Eos % (Auto) 0.4, Baso % (Auto) 0.4, Absolute Neuts (auto) 5.6, Absolute Lymphs (auto) 3.29, Nucleated RBC % 0 07/11/19 06:00: Sodium 139, Potassium 3.9, Chloride 111 H, Carbon Dioxide 23.0, Anion Gap 5, BUN 21 H, Creatinine 0.85, Estim Creat Clear Calc 68.08, Est GFR (MDRD) Af Amer 90, Est GFR (MDRD) Non-Af 74, BUN/Creatinine Ratio 24.7 H, Glucose 172 H, Calcium 8.2 L 07/11/19 06:31: POC Glucose 161 H Current Medications Al Hydroxide/Mg Hydroxide (Mylanta Ii) 30 ml PO Q6H PRN PRN PRN Reason: Gastric Burning Albuterol Sulfate (Ventolin Aerosols) 2.5 mg INHALATION Q2H PRN PRN PRN Reason: dyspnea, wheezing Atenolol (Tenormin (Beta Jovanni)) 100 mg PO DAILY [facility] Buspirone HCl (Buspar) 15 mg PO TID [facility] Last Admin: 07/11/19 06:32 Dose: 15 mg Documented by: Citalopram Hydrobromide (Celexa) 40 mg PO DAILY [facility] Fluticasone Propionate (Flonase Nasal [place]) 1 spray NASAL DAILY [facility] Glucagon () 1 mg IM .X1 PRN PRN Reason: Hypoglycemia Heparin Sodium (Porcine) (Heparin Na) 5,000 unit SC Q12 [facility] Last Admin: 07/10/19 22:53 Dose: 5,000 unit Documented by: Hydralazine HCl (Apresoline Iv) 10 mg IV Q4H PRN PRN PRN Reason: SBP > 160 Hydrocortisone (Hytone) 1 applic TOPICAL BID PRN PRN; Protocol PRN Reason: ITCHING Sodium Chloride () 1,000 mls @ 125 mls/hr IV .Q8H [facility] Last Admin: 07/11/19 00:24 Dose: 125 mls/hr Documented by: Sodium Chloride () 250 mls @ 15 mls/hr IV .[id number] PRN PRN Reason: Saline Flush Sodium Chloride () 250 mls @ 15 mls/hr IV .[id number] PRN PRN Reason: Additional IVPB Infusion Dextrose (Dextrose 10%-Water) 250 mls @ 999 mls/hr IV .Q16M PRN; Protocol PRN Reason: HYPOGLYCEMIA Insulin Glargine (Lantus (Bkc)) 10 units SC QHS [facility] Last Admin: 07/10/19 22:53 Dose: 10 units Documented by: Insulin Human Lispro (Humalog Kwikpen (Bkc)) 0 unit SC ACHS [facility]; Protocol Last Admin: 07/11/19 06:32 Dose: 2 units Documented by: Loratadine (Claritin) 10 mg PO DAILY PRN PRN Reason: ALLERGIES Melatonin (Melatonin) 3 mg PO QHS PRN PRN PRN Reason: INSOMNIA Last Admin: 07/10/19 22:56 Dose: 3 mg Documented by: Morphine Sulfate () 2 mg IV Q3H PRN PRN PRN Reason: Pain Score 6-10/10 Ondansetron HCl (Zofran) 4 mg IV Q8H PRN PRN PRN Reason: NAUSEA/VOMITING Oxycodone HCl (Oxyir) 5 mg PO Q4H PRN PRN PRN Reason: Pain Score 4-5/10 Prochlorperazine Edisylate (Compazine Iv) 5 mg IV Q4H PRN PRN PRN Reason: Breakthrough nausea/vomiting Psyllium Hydrophilic Mucilloid (Metamucil) 1 packet PO DAILY PRN PRN PRN Reason: Constipation Sodium Chloride () 10 - 40 ml IV UD PRN PRN Reason: SALINE FLUSH Last Admin: 07/10/19 22:52 Dose: 10 ml Documented by: Throat Lozenges (Cepacol Sore Throat Lozenge) 1 lozenge MUCOUS MEM Q2H PRN PRN PRN Reason: Sore throat or cough STROKE Vital Signs/Narrative: Vital Signs Temp Pulse Resp BP Pulse Ox 07/11/19 07:37 94 07/11/19 04:15 98.5 F 68 16 147/67 H 95 Medical Necessity - Tobacco Use Smoking Status: Former smoker Tobacco Use: Cigarettes Assessment/Plan All Active Problems Chest pain (Acute) Neck pain (Acute) Hyperglycemia (Acute) EMILIO (acute kidney injury) (Acute) Difficulty breathing (Acute) Acute pancreatitis (Acute) Upper airway obstruction (Resolved) Acute respiratory failure (Resolved) The patient is a 54 y/o F with H/o Morbid Obesity, HTN, HLD, Anxiety and Depression, GERD, Diabetes mellitus type II who is admitted with hyperglycemia secondary to higher dose of prednisone for contact irritant dermatitis secondary to washing detergent. She also has polyuria, fatigue, loss of appetite/decreased oral intake. She had diffuse rash on the thorax and extremities 1. Diabetes mellitus type II with Hyperglycemia: Likely secondary to recent aggressive steroid usage, will hold, will admit to the medical surgical floor, will obtain hemoglobin A1c level, will obtain nutrition consultation for education and teaching, will continue patient home long-acting as well as short- acting with medium to high insulin sliding scale, will aggressively hydrate with additional 1 L saline bolus and continue maintenance IV fluids, continue to trend BMP. 2. Acute kidney injury: Secondary to #1, acute presentation with also poor oral intake and notable urine output with hyperglycemia. Admission BUN/Cr 26/1.59, pr ior baseline creatinine noted to be 1.0. Will hydrate, hold nephrotoxic medications and repeat chemistry this evening and if not clinically improving would also obtain renal ultrasound and FeNa assessment, if improving will defer US with also repeat BMP in AM. 3. Recent dermatitis with significant pruritus: We will discontinue patient oral steroid regimen, last dose was tomorrow, will have PRN low-dose steroid twice daily cream for itching. Advised strongly that patient use hypoallergenic items to wash her clothes. 4. Hypertension: We will continue patient home atenolol, holding patient s pironolactone and hydrochlorothiazide given acute kidney injury, resume once clinically appropriate, PRN IV hydralazine in interim. 5. Anxiety and depression: We will continue patient home Celexa and BuSpar regimen but if worsened renal status may need to hold. 6. Morbid Obesity: Weight loss and lifestyle changes encouraged, nutrition consulted. 7. Chronic COPD: Status post prior tracheostomy secondary to history of angioedema, ATC duonebs, PRN albuterol, HOB, IS parameters. 8. Former tobacco use: Encouraged continued tobacco cessation. 9. GERD: We will maintain on PPI given EMILIO presentation. 10. SHARMIN: Noncompliant with CPAP. 11. DVT prophylaxis: SCDs, heparin.
--- NOTE | 2019-07-11 08:52 | PCM.DC ---
- Discharge Diagnoses Current Active Problems: Current Active and Chronic Problems Morbid obesity (Chronic) SHARMIN (obstructive sleep apnea) (Chronic) Former tobacco use (Chronic) Hyperglycemia (Acute) EMILIO (acute kidney injury) (Acute) You will use the following diet at home:: Calorie/Carbohydrate Controlled (specify 1200, 1400, etc), Cardiac Your food should be the consistency of: Regular Discharge Activity: May Not Drive - for 1 week Weight Bearing Status: Weight bearing as tolerated Call your doctor if you observe: Fever of 101 or Higher, Coldness, Increased Pain, Change in Color, Inability to have a bowel movement, Using more than one pad per hour, Shortness of breath, Swelling in the ankles, Chest pain, Prolonged hiccoughing, Increased palpitations (irregular heartbeat), Calf discomfort, Uncontrolled pain Allergies/Adverse Reactions: Allergies bupropion [From Wellbutrin] Allergy (Verified 07/10/19 18:17) Angioedema lisinopril Allergy (Verified 07/10/19 18:17) Angioedema sulfamethoxazole [From Bactrim] Allergy (Verified 07/10/19 18:17) Rash trimethoprim [From Bactrim] Allergy (Verified 07/10/19 18:17) Rash acetaminophen [From Vicodin] Adverse Reaction (Verified 07/10/19 18:17) Nausea/Vom/Diarrhea aspirin Adverse Reaction (Verified 07/10/19 18:17) Nausea/Vom/Diarrhea hydrocodone [From Vicodin] Adverse Reaction (Verified 07/10/19 18:17) Nausea/Vom/Diarrhea Medications to take at Discharge Loratadine [Claritin] 10 mg PO DAILY 12/16/16 Glimepiride [Amaryl] 4 mg PO BID 05/25/17 Fluticasone 0.05% [Flonase Nasal [place]] 1 spray NASAL DAILY PRN PRN 07/06/18 Lansoprazole 30 mg PO DAILY 07/06/18 Citalopram [Celexa] 40 mg PO QHS 01/01/19 Buspirone HCl 15 mg PO TID 02/20/19 Ranitidine HCl 300 mg PO QHS 02/20/19 Spironolactone 50 mg PO DAILY 02/20/19 Albuterol IH (ProAir) [Proair Hfa] 2 puff INHALATION Q4H PRN PRN 03/16/19 Albuterol Sulfate 2.5 mg IH Q4H PRN PRN 03/16/19 Atenolol [Tenormin (beta haley)] 100 mg PO DAILY 07/10/19 Diphenhydramine HCl [Benadryl Allergy] 25 mg PO DAILY PRN PRN 07/10/19 Insulin Glargine [Lantus SoloStar Pen] 10 units SUBCUT QHS 07/10/19 Meloxicam 15 mg PO DAILY PRN 07/10/19 Prednisone 60 mg PO DAILY 07/10/19 Zolpidem Tartrate [Ambien] 5 mg PO QHS 07/10/19 Hydrocortisone 2.5% Crm [Hytone] 1 applic TOPICAL BID #1 tube 07/11/19 The following prescriptions were given: Hydrocortisone 2.5% Crm [Hytone] 1 applic TOPICAL BID #1 tube Transmission Status: Pending to [facility]/pharmacy #[id number] Primary Care Physician: Joaquim Burks DO [Primary Care Provider] - Please follow up with your Primary Care Physician in: in 2 weeks Test Results: Test results from this visit will be discussed in further detail at your follow-up appointment, if applicable.
--- NOTE | 2019-07-11 08:53 | PCM.DC.SUM ---
Discharge Date and Diagnosis - Problem List Patient Problems: Active and Suspected Problems Hyperglycemia (Acute) EMILIO (acute kidney injury) (Acute) Date of Admission: 07/10/19 Date of Discharge: 07/11/19 - Primary Discharge Diagnosis Active and Suspected Problems Hyperglycemia (Acute) EMILIO (acute kidney injury) (Acute) - Secondary Discharge Diagnosis Chronic Problems Morbid obesity (Chronic) SHARMIN (obstructive sleep apnea) (Chronic) Former tobacco use (Chronic) Tracheostomy dependence (Chronic) Anxiety (Chronic) GERD (gastroesophageal reflux disease) (Chronic) COPD (chronic obstructive pulmonary disease) (Chronic) Morbid obesity (Chronic) Anxiety and depression (Chronic) Status post tracheostomy (Chronic) Depression (Chronic) Angioedema (Chronic) Type II diabetes mellitus (Chronic) Hyperlipidemia (Chronic) Hypertension (Chronic) Hospital Course and Treatment Operations: None Summary of Care Provided: The patient is a 54 y/o F with H/o Morbid Obesity, HTN, HLD, Anxiety and Depression, GERD, Diabetes mellitus type II who is admitted with hyperglycemia secondary to higher dose of prednisone for contact irritant dermatitis secondary to washing detergent. She also has polyuria, fatigue, loss of appetite/decreased oral intake. She had diffuse rash on the thorax and extremities 1. Diabetes mellitus type II with Hyperglycemia secondary to prednisone: Patient is on oral hypoglycemic agent glimepiride and Lantus 10 units at night sugars are controlled. Patient was admitted on [facility] floor. Glucose was controlled patient was treated with IV fluid normal saline. 2. Acute kidney injury, prerenal etiology/hyperglycemia polyuria: BUN/creatinine was 26/1.59 improved to 22/1.19. Patient is still getting IV fluid. Acute kidney injury resolved. Stopped IV fluids encourage p.o. oral intake. 3. Most probably contact irritant/allergic dermatitis: On hydrocortisone cream. Advised petroleum jelly to apply on skin. Advised strongly that patient use hypoallergenic items to wash her clothes. 4. Hypertension: Continue home medication. Blood pressure is reasonably controlled. 5. Anxiety and depression: Baseline 6. Morbid Obesity: Weight loss and lifestyle changes encouraged, nutrition consulted. 7. Chronic COPD: Status post prior tracheostomy secondary to history of angioedema, ATC duonebs, PRN albuterol, HOB, IS parameters. 8. Former tobacco use: Encouraged continued tobacco cessation. 9. GERD: Stable 10. SHARMIN: Noncompliant with CPAP. 11. DVT prophylaxis: SCDs, heparin. Discharge medication reconciliation done. Discharge follow-up instructions completed. Discharge process discussed with the patient and all questions were answered to patient's satisfaction.. 07/10/19 22:54: Sodium 139, Potassium 4.2, Chloride 110 H, Carbon Dioxide 22.0, Anion Gap 7, BUN 22 H, Creatinine 1.19 H, Estim Creat Clear Calc 48.63, Est GFR (MDRD) Af Amer 61, Est GFR (MDRD) Non-Af 50 L, BUN/Creatinine Ratio 18.5, Glucose 306 H, Calcium 8.5 07/11/19 06:00: WBC 10.2, RBC 4.08 L, Hgb 12.3, Hct 37.3, MCV 91.4, MCH 30.1, MCHC 33.0, RDW Std Deviation 41.3, RDW Coeff of [place] 12.5, Plt Count 189, MPV 11.4, Immature Gran % (Auto) 1.500 H, Neut % (Auto) 54.4, Lymph % (Auto) 32.3, [place] % (Auto) 11.0 H, Eos % (Auto) 0.4, Baso % (Auto) 0.4, Absolute Neuts (auto) 5.6, Absolute Lymphs (auto) 3.29, Nucleated RBC % 0 07/11/19 06:00: Sodium 139, Potassium 3.9, Chloride 111 H, Carbon Dioxide 23.0, Anion Gap 5, BUN 21 H, Creatinine 0.85, Estim Creat Clear Calc 68.08, Est GFR (MDRD) Af Amer 90, Est GFR (MDRD) Non-Af 74, BUN/Creatinine Ratio 24.7 H, Glucose 172 H, Calcium 8.2 L 07/11/19 06:31: POC Glucose 161 H Patient Problems: Active and Suspected Problems Hyperglycemia (Acute) EMILIO (acute kidney injury) (Acute) - Physical Exam Vitals/I&O's: Vital Signs Temp Pulse Resp BP Pulse Ox 98.5 F 68 16 147/67 H 94 07/11/19 04:15 07/11/19 04:15 07/11/19 04:15 07/11/19 04:15 07/11/19 07:37 Oxygen Delivery Method Room Air Weight: 263 lb 10.766 oz Body Mass Index (BMI) 43.9 Finger Stick Blood Glucose 382 Intake and Output for Last 24 Hours 07/09/19 07/10/19 07/11/19 23:59 23:59 23:59 Intake Total 1999 1983.33 / 1982.33 Output Total 725 / 725 Balance 1999 1258.33 / 1258.33 Laboratory Results 07/10/19 18:34: WBC 8.2, RBC 4.80, Hgb 14.4, Hct 43.3, MCV 90.2, MCH 30.0, MCHC 33.3, RDW Std Deviation 40.8, RDW Coeff of [place] 12.3, Plt Count 231, MPV 11.8, Immature Gran % (Auto) 2.800 H, Neut % (Auto) 78.1 H, Lymph % (Auto) 15.8 L, [place] % (Auto) 2.8, Eos % (Auto) 0.0, Baso % (Auto) 0.5, Absolute Neuts (auto) 6.4, Absolute Lymphs (auto) 1.29, Nucleated RBC % 0, Differential Comment SCANNED 07/10/19 18:34: Sodium 132 L, Potassium 4.5, Chloride 101, Carbon Dioxide 18.0 L, Anion Gap 13, BUN 26 H, Creatinine 1.59 H, Estim Creat Clear Calc 36.40, Est GFR (MDRD) Af Amer 44 L, Est GFR (MDRD) Non-Af 36 L, BUN/Creatinine Ratio 16.4, Glucose 565 H*, Calcium 8.9, Troponin I < 0.015 07/10/19 18:34: Acetone Level NEGATIVE 07/10/19 18:34: Hemoglobin A1c 8.2 H 07/10/19 18:39: POC Glucose > 500 H* 07/10/19 19:30: Urine Color Yellow, Urine Clarity Clear, Urine pH 6.0, Ur Specific [place] 1.015, Urine Protein Negative, Urine Glucose (UA) 1000 H, Urine Ketones 5 H, Urine Occult Blood Negative, Urine Nitrite Negative, Urine Bilirubin Negative, Urine Urobilinogen Normal, Ur Leukocyte Esterase Negative, Urine RBC 0 SEEN, Urine WBC 0 SEEN, Ur Squamous Epith Cells 0 SEEN, Urine Bacteria 0 SEEN, Urine Mucus 0 SEEN 07/10/19 19:30: Ur Random Sodium 63, Urine Creatinine 43.00 07/10/19 21:26: POC Glucose 382 H 07/10/19 22:21: POC Glucose 305 H 07/10/19 22:54: Sodium 139, Potassium 4.2, Chloride 110 H, Carbon Dioxide 22.0, Anion Gap 7, BUN 22 H, Creatinine 1.19 H, Estim Creat Clear Calc 48.63, Est GFR (MDRD) Af Amer 61, Est GFR (MDRD) Non-Af 50 L, BUN/Creatinine Ratio 18.5, Glucose 306 H, Calcium 8.5 07/11/19 06:00: WBC 10.2, RBC 4.08 L, Hgb 12.3, Hct 37.3, MCV 91.4, MCH 30.1, MCHC 33.0, RDW Std Deviation 41.3, RDW Coeff of [place] 12.5, Plt Count 189, MPV 11.4, Immature Gran % (Auto) 1.500 H, Neut % (Auto) 54.4, Lymph % (Auto) 32.3, [place] % (Auto) 11.0 H, Eos % (Auto) 0.4, Baso % (Auto) 0.4, Absolute Neuts (auto) 5.6, Absolute Lymphs (auto) 3.29, Nucleated RBC % 0 07/11/19 06:00: Sodium 139, Potassium 3.9, Chloride 111 H, Carbon Dioxide 23.0, Anion Gap 5, BUN 21 H, Creatinine 0.85, Estim Creat Clear Calc 68.08, Est GFR (MDRD) Af Amer 90, Est GFR (MDRD) Non-Af 74, BUN/Creatinine Ratio 24.7 H, Glucose 172 H, Calcium 8.2 L 07/11/19 06:31: POC Glucose 161 H Current Medications Al Hydroxide/Mg Hydroxide (Mylanta Ii) 30 ml PO Q6H PRN PRN PRN Reason: Gastric Burning Albuterol Sulfate (Ventolin Aerosols) 2.5 mg INHALATION Q2H PRN PRN PRN Reason: dyspnea, wheezing Atenolol (Tenormin (Beta Jovanni)) 100 mg PO DAILY [facility] Buspirone HCl (Buspar) 15 mg PO TID [facility] Last Admin: 07/11/19 06:32 Dose: 15 mg Documented by: Citalopram Hydrobromide (Celexa) 40 mg PO DAILY [facility] Fluticasone Propionate (Flonase Nasal [place]) 1 spray NASAL DAILY [facility] Glucagon () 1 mg IM .X1 PRN PRN Reason: Hypoglycemia Heparin Sodium (Porcine) (Heparin Na) 5,000 unit SC Q12 [facility] Last Admin: 07/10/19 22:53 Dose: 5,000 unit Documented by: Hydralazine HCl (Apresoline Iv) 10 mg IV Q4H PRN PRN PRN Reason: SBP > 160 Hydrocortisone (Hytone) 1 applic TOPICAL BID PRN PRN; Protocol PRN Reason: ITCHING Sodium Chloride () 1,000 mls @ 125 mls/hr IV .Q8H [facility] Last Admin: 07/11/19 08:16 Dose: 125 mls/hr Documented by: Sodium Chloride () 250 mls @ 15 mls/hr IV .[id number] PRN PRN Reason: Saline Flush Sodium Chloride () 250 mls @ 15 mls/hr IV .[id number] PRN PRN Reason: Additional IVPB Infusion Dextrose (Dextrose 10%-Water) 250 mls @ 999 mls/hr IV .Q16M PRN; Protocol PRN Reason: HYPOGLYCEMIA Insulin Glargine (Lantus (Bk)) 10 units SC QHS [facility] Last Admin: 07/10/19 22:53 Dose: 10 units Documented by: Insulin Human Lispro (Humalog Kwikpen ([facility])) 0 unit SC [facility]; Protocol Last Admin: 07/11/19 06:32 Dose: 2 units Documented by: Loratadine (Claritin) 10 mg PO DAILY PRN PRN Reason: ALLERGIES Melatonin (Melatonin) 3 mg PO QHS PRN PRN PRN Reason: INSOMNIA Last Admin: 07/10/19 22:56 Dose: 3 mg Documented by: Morphine Sulfate () 2 mg IV Q3H PRN PRN PRN Reason: Pain Score 6-10/10 Ondansetron HCl (Zofran) 4 mg IV Q8H PRN PRN PRN Reason: NAUSEA/VOMITING Oxycodone HCl (Oxyir) 5 mg PO Q4H PRN PRN PRN Reason: Pain Score 4-5/10 Prochlorperazine Edisylate (Compazine Iv) 5 mg IV Q4H PRN PRN PRN Reason: Breakthrough nausea/vomiting Psyllium Hydrophilic Mucilloid (Metamucil) 1 packet PO DAILY PRN PRN PRN Reason: Constipation Sodium Chloride () 10 - 40 ml IV UD PRN PRN Reason: SALINE FLUSH Last Admin: 07/10/19 22:52 Dose: 10 ml Documented by: Throat Lozenges (Cepacol Sore Throat Lozenge) 1 lozenge MUCOUS MEM Q2H PRN PRN PRN Reason: Sore throat or cough Discharge Activity: May Not Drive - for 1 week Weight Bearing Status: Weight bearing as tolerated Call your doctor if you observe: Fever of 101 or Higher, Coldness, Increased Pain, Change in Color, Inability to have a bowel movement, Using more than one pad per hour, Shortness of breath, Swelling in the ankles, Chest pain, Prolonged hiccoughing, Increased palpitations (irregular heartbeat), Calf discomfort, Uncontrolled pain Home Medications: Medications to take at Discharge Loratadine [Claritin] 10 mg PO DAILY 12/16/16 Glimepiride [Amaryl] 4 mg PO BID 05/25/17 Fluticasone 0.05% [Flonase Nasal [place]] 1 spray NASAL DAILY PRN PRN 07/06/18 Lansoprazole 30 mg PO DAILY 07/06/18 Citalopram [Celexa] 40 mg PO QHS 01/01/19 Buspirone HCl 15 mg PO TID 02/20/19 Ranitidine HCl 300 mg PO QHS 02/20/19 Spironolactone 50 mg PO DAILY 02/20/19 Albuterol IH (ProAir) [Proair Hfa] 2 puff INHALATION Q4H PRN PRN 03/16/19 Albuterol Sulfate 2.5 mg IH Q4H PRN PRN 03/16/19 Atenolol [Tenormin (beta jovanni)] 100 mg PO DAILY 07/10/19 Diphenhydramine HCl [Benadryl Allergy] 25 mg PO DAILY PRN PRN 07/10/19 Insulin Glargine [Lantus SoloStar Pen] 10 units SUBCUT QHS 07/10/19 Meloxicam 15 mg PO DAILY PRN 07/10/19 Prednisone 60 mg PO DAILY 07/10/19 Zolpidem Tartrate [Ambien] 5 mg PO QHS 07/10/19 Hydrocortisone 2.5% Crm [Hytone] 1 applic TOPICAL BID #1 tube 07/11/19 Following Prescrptions Were Given to Patient: Hydrocortisone 2.5% Crm [Hytone] 1 applic TOPICAL BID #1 tube Transmission Status: Pending to [facility]/pharmacy #[id number] Primary Care Physician: Joaquim Burks DO [Primary Care Provider] - Please follow up with your Primary Care Physician in: in 2 weeks Medical Necessity - Tobacco Use Smoking Status: Former smoker Tobacco Use: Cigarettes Meaningful Use Info Meaningful Use Diagnoses (Choose all that apply): None applicable Code Visit OBSV E&M: 39920 Observation care discharge
[2019-07-11 10:25] VITALS: BP 172/85; PULSE 67; RESP 18; TEMP 36.6; O2SAT 96
[2019-07-11] MEDS: Atenolol 100 MG Tablet PO (10:32)
--- NOTE | 2019-07-12 15:25 | CASEMGMT ---
LOKI CM Discharge Follow-up Phone Call: SYED: Malathi Strata: 4 Call Date: 07/12/2019 Discharge Date: 07/11/2019 Time of Call: 1520 Duration: 6 minutes Admitting Diagnosis: Hyperglycemia, EMILIO Discharge follow-up call placed to pt. Pt c/o not feeling herself and feeling tired since discharge. States she does not have an appetite and had eaten peanut butter crackers so far today. Pt states she last checked her blood sugar last night and it was 162. Pt had not checked her blood sugar today. Pt checked it while on the phone with this RN and it was 190. Pt had not contacted Dr. Burks's office to make a follow-up appointment. Instructed pt to call Dr. Burks's office, inform them of how she is feeling, and request an appointment. Pt states she would do so. Pt denied any other questions or concerns at this time. Vibha Daniel RN
== END 2019-07-11 11:23 | disposition home or self-care (01) | DRG 638 ==
LOC: ED 18:43 → MS3 20:46
PROVIDERS: Admitting Provider Family Medicine; Emergency Provider Emergency Medicine; Family Provider Student in an Organized Health Care Education/Training Program; PCP Student in an Organized Health Care Education/Training Program; Visit Provider Internal Medicine
DX: E11.65 Type 2 diabetes mellitus with hyperglycemia (principal); N17.9 Acute kidney failure, unspecified; Z68.41 Body mass index [BMI] 40.0-44.9, adult; E66.01 Morbid (severe) obesity due to excess calories; J44.9 Chronic obstructive pulmonary disease, unspecified; G47.33 Obstructive sleep apnea (adult) (pediatric); F41.9 Anxiety disorder, unspecified; K21.9 Gastro-esophageal reflux disease without esophagitis; F32.9 Major depressive disorder, single episode, unspecified; I10 Essential (primary) hypertension; E78.5 Hyperlipidemia, unspecified; T38.0X5A Adverse effect of glucocorticoids and synthetic analogues, initial encounter; Z79.4 Long term (current) use of insulin; L23.9 Allergic contact dermatitis, unspecified cause; Z87.891 Personal history of nicotine dependence; Z91.19 Patient's noncompliance with other medical treatment and regimen
CPT/HCPCS: 36415; 71045; 76770; 80048; 81001; 82009; 82570; 82962; 83036; 84300; 84484; 85025; 93005; 97802; 99251; 99285; J7030; A4216; G0463

== ENCOUNTER 2019-07-12 16:24 | Observation (INO) | payer MEDICARE, MEDICAID, SELFPAY ==
[2019-07-12] VITALS (8 sets, daily range): BP systolic 142–172; BP diastolic 68–104; PULSE 53–61; RESP 13–18; TEMP 36.4–36.6; O2SAT 95–100; BMI 44.1; BMI 43.3
--- NOTE | 2019-07-12 16:41 | EKG12_ITS ---
Test Reason : Blood Pressure : / mmHG Vent. Rate : 060 BPM Atrial Rate : 060 BPM P-R Int : 132 ms QRS Dur : 080 ms QT Int : 416 ms P-R-T Axes : 034 -02 031 degrees QTc Int : 416 ms Normal sinus rhythm Normal ECG Confirmed by LILLIAN LEPE, JUWAN ([id number]), web editor ELFEGO CHAVEZ ([id number]) on 07/16/2019 12:16:02 PM Referred By: TROY Confirmed By:JUWAN SNYDER MD
--- NOTE | 2019-07-12 16:41 | RAD_ITS ---
STUDY: X-RAY CHEST REASON FOR EXAM: Female, 54 years old. CHEST PAIN TECHNIQUE: Single frontal view of the chest. COMPARISON: 07/10/2019. FINDINGS: Cardiac silhouette unremarkable. Pulmonary vascularity unremarkable. Aorta unremarkable. No focal airspace opacities. No pleural effusions. Upper abdomen unremarkable. Osseous structures intact. No pneumothorax. RAD/Chest 1 View (Portable) IMPRESSION: Limited by low lung volumes. No acute cardiopulmonary findings. Electronically Signed: Avtar Carreon, at 17:35 EST Tel , Service support ,
[2019-07-12 17:35] LABS: Absolute Lymphocyte Count 3.44 X10^3/uL (0.83-4.51); Absolute Neutrophil Count 5.5 X10^3/uL (2.0-7.7); Basophil# 0.07 X10^3/uL; Basophil% 0.7 % (0-1); Eosinophil# 0.19 X10^3/uL; Eosinophils% 1.9 % (0-5); Hematocrit 42.8 % (37-47); Hemoglobin 14.4 g/dL (12.0-15.0); Lymphocyte # 3.44 X10^3/ul (4.0); Lymphocyte % 34.6 % (19-41); Mean Corp Hgb Conc 33.6 g/dL (32-36); Mean Corpuscular Hgb 29.6 pg (27.0-32.0); Mean Corpuscular Volume 88.1 fL (81-99); Mean Platelet Vol. 11.1 fl (6.2-12.0); Monocyte# 0.61 X10^3/uL; Monocyte% 6.1 % (0-10); NRBC Flagged by Analyzer 0 % (0-5); Neutrophil # 5.52 X10^3/uL (2.7-7.7); Neutrophil % 55.5 % (47-70); Platelet Count 215 K/mm3 (150-450); RBC Distribution Width CV 12.6 % (11.6-14.6); RBC Distribution Width SD 41.1 fl (35.1-43.9); Red Blood Count 4.86 M/mm3 (4.2-5.4)
[2019-07-12 17:55] LABS: Anion Gap 5 (5-15); BUN 13 mg/dL (7-18); BUN/Creat Ratio 13.5 RATIO (10-20); Calcium,Total 9.1 mg/dL (8.5-10.1); Chloride 102 mmol/L (98-107); Creatinine, Serum 0.96 mg/dL (0.55-1.02); EST Glomerular Filtration Rate 64 mL/min (>60); Est Glom Filt Rate - Afr Amer 78 mL/min (>60); Estimated Creatinine Clearance 60.28 ml/min; Glucose 162 mg/dL (74-106); Potassium 3.7 mmol/L (3.5-5.1); Sodium Level 134 mmol/L (136-145)
[2019-07-12] MEDS: Morphine 4 MG/ML Syringe IV (18:29)
--- NOTE | 2019-07-12 18:54 | ED.DCSUM_ITS ---
- ER Visit Summary Date of Service: 07/12/19 Chief Complaint: Pain History of Present Illness: The patient is a 54 F with substernal chest pain that radiates down her left arm. Started yesterday and was worse today. Associated with tiredness and shortness of breath. History of diabetes, hypertension, hyperlipidemia, prior AR. Former smoker. She had a stress test years ago which was unremarkable. Never required stents or bypass. No history of blood clots. Physical Examination: Afebrile and vital signs unremarkable except for hypertension. Otherwise exam was unremarkable. Test Results: EKG showed sinus rhythm at a rate of 60. Chest x-ray, CBC, BMP, troponin unremarkable. Emergency Department Course and Treatment: Patient has an aspirin allergy. She was treated with morphine for pain. Her work-up was unremarkable. Given her risk factors and history, I contacted the hospitalist for admission. Treatment Plan: [] Disposition: Admit Impression: Chest pain This note was generated with [employer] dictation software. It may contain incorrect words, spelling, and punctuation that were not noted in review of the chart prior to signing ED Disposition - Plan for ED Patient: Referrals: Joaquim Burks DO [Primary Care Provider] -
--- NOTE | 2019-07-12 18:58 | PCM.HP.STD ---
History of Present Illness Date of Admission: 07/12/19 Chief Complaint: chest pain The patient is a 54 year old F with a past medical history as listed. She was recently discharged 2 days ago after being admitted and managed for elevated blood sugars. Patient states she has been having chest pain for a few days now. Pain is retrosternal and pressure-like with no aggravating or relieving factors. She has not had pain like this before. She denies any lightheadedness, palpitations, nausea vomiting or any history of DVT or PE or long distance travel. Patient is diabetic and hypertensive and obese which are risk factors for coronary artery disease. She came into the ED where vitals were significant for blood pressure of 172/104 but vitals were otherwise unremarkable. She was saturating at 98% on 4 L of oxygen. Chemistry unremarkable initial troponin was negative. CBC was also unremarkable. EKG showed mild bradycardia but no acute ST changes. Chest x-ray showed no acute Cardiopulmonary findings though this was limited by low lung volumes. She has been admitted to be managed for chest pain rule out ACS. [] Past Medical History Past Medical History (Chronic Problems): Chronic Problems Morbid obesity (Chronic) SHARMIN (obstructive sleep apnea) (Chronic) Former tobacco use (Chronic) Tracheostomy dependence (Chronic) Anxiety (Chronic) GERD (gastroesophageal reflux disease) (Chronic) COPD (chronic obstructive pulmonary disease) (Chronic) Morbid obesity (Chronic) Anxiety and depression (Chronic) Status post tracheostomy (Chronic) Depression (Chronic) Angioedema (Chronic) Type II diabetes mellitus (Chronic) Hyperlipidemia (Chronic) Hypertension (Chronic) Allergies bupropion [From Wellbutrin] Allergy (Verified 07/12/19 16:25) Angioedema lisinopril Allergy (Verified 07/12/19 16:25) Angioedema sulfamethoxazole [From Bactrim] Allergy (Verified 07/12/19 16:25) Rash trimethoprim [From Bactrim] Allergy (Verified 07/12/19 16:25) Rash acetaminophen [From Vicodin] Adverse Reaction (Verified 07/12/19 16:25) Nausea/Vom/Diarrhea aspirin Adverse Reaction (Verified 07/12/19 16:25) Nausea/Vom/Diarrhea hydrocodone [From Vicodin] Adverse Reaction (Verified 07/12/19 16:25) Nausea/Vom/Diarrhea Home Medications: Ambulatory Orders Medication Instructions Recorded Loratadine [Claritin] 10 mg PO DAILY 12/16/16 Glimepiride [Amaryl] 4 mg PO BID 05/25/17 Fluticasone 0.05% [Flonase Nasal 1 spray NASAL DAILY PRN PRN 07/06/18 [place]] Lansoprazole 30 mg PO DAILY 07/06/18 Citalopram [Celexa] 40 mg PO QHS 01/01/19 Buspirone HCl 15 mg PO TID 02/20/19 Ranitidine HCl 300 mg PO QHS 02/20/19 Spironolactone 50 mg PO DAILY 02/20/19 Albuterol IH (ProAir) [Proair Hfa] 2 puff INHALATION Q4H PRN PRN 03/16/19 Albuterol Sulfate 2.5 mg IH Q4H PRN PRN 03/16/19 Atenolol [Tenormin (beta haley)] 100 mg PO DAILY 07/10/19 Diphenhydramine HCl [Benadryl 25 mg PO DAILY PRN PRN 07/10/19 Allergy] Insulin Glargine [Lantus SoloStar 10 units SUBCUT QHS 07/10/19 Pen] Meloxicam 15 mg PO DAILY PRN 07/10/19 Zolpidem Tartrate [Ambien] 5 mg PO QHS 07/10/19 Surgical History: - - Tracheostomy, cholecystectomy, bilateral tubal ligation, NovaSure, bladder suspension surgery. 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 Denies: Chest Tightness, Edema, Heaviness, Light Headedness, Orthopnea, Palpitations, Syncope Respiratory: Reports: -. Denies: Cough, Shortness of Breath, Shortness of breath at rest, Shortness of breath upon exertion, Sputum production Gastrointestinal: Denies: Abdominal Pain, Nausea, Vomiting Genitourinary: Denies: Dysuria Musculoskeletal: Denies: Joint Pain, Joint Tenderness Skin: Denies: Rash, Wounds Neurological: Denies: Numbness, Tingling, Focal weakness Psychiatric: Denies: Anxiety, Depression, Homicidal Ideations, Suicidal Ideations Hematologic/ Lymphatic: Denies: Easy Bruising, Easy Bleeding VTE Information - Inpt Only VTE Present on Admission: No VTE Pharm Prophylaxis ordered?: Yes - Physical Exam Vitals/I&O's: Vital Signs Temp Pulse Resp BP Pulse Ox 97.9 F 57 L 13 172/104 H 100 07/12/19 16:25 07/12/19 18:06 07/12/19 18:06 07/12/19 16:25 07/12/19 18:06 Oxygen Flow Rate (L/min) 2 Oxygen Delivery Method Nasal Cannula Weight: 264 lb 15.93 oz Body Mass Index (BMI) 44.1 Finger Stick Blood Glucose 382 General: Alert, Oriented x3, Cooperative, No apparent distress HEENT: Atraumatic, PERRLA, EOMI, Normocephalic Oral: Moist Mucosa Neck: Supple, No JVD, Negative Carotid Bruits Lungs: Clear to auscultation, Normal air movement, No rhonchi, No wheeze, No rales Cardiovascular: Regular rate, Regular Rhythm, Normal S1, Normal S2, No murmurs Abdomen: Bowel Sounds Present, Soft, Non Tender, Non-Distended, No Hepato-splenomegaly Extremities: No clubbing, No cyanosis, No edema, Capillary Refill Less than 3 Seconds Skin: No rashes, No breakdown Musculoskeletal: No Tenderness to Palpation of Joints or Extremities Lymphatic: No Cervical, Supraclavicular, or Inguinal Adenopathy Neurological: Cranial nerves II-XII grossly intact, Neuro grossly intact, Motor Exam 5/5 strength throughout Psych/Mental Status: Normal Affect, Appropriate, Alert and oriented to time, place, person, mood and affect Laboratory Results 07/12/19 17:08: WBC 10.0, RBC 4.86, Hgb 14.4, Hct 42.8, MCV 88.1, MCH 29.6, MCHC 33.6, RDW Std Deviation 41.1, RDW Coeff of [place] 12.6, Plt Count 215, MPV 11.1, Immature Gran % (Auto) 1.200 H, Neut % (Auto) 55.5, Lymph % (Auto) 34.6, [place] % (Auto) 6.1, Eos % (Auto) 1.9, Baso % (Auto) 0.7, Absolute Neuts (auto) 5.5, Absolute Lymphs (auto) 3.44, Nucleated RBC % 0 07/12/19 17:08: Sodium 134 L, Potassium 3.7, Chloride 102, Carbon Dioxide 27.0, Anion Gap 5, BUN 13, Creatinine 0.96, Estim Creat Clear Calc 60.28, Est GFR (MDRD) Af Amer 78, Est GFR (MDRD) Non-Af 64, BUN/Creatinine Ratio 13.5, Glucose 162 H, Calcium 9.1, Troponin I < 0.015 Diagnostic Data Chest X-Ray 07/12/19 16:41 IMPRESSION: Limited by low lung volumes. No acute cardiopulmonary findings. Electronically Signed: Avtar Carreon, at 17:35 EST Tel , Service support , Assessment/Plan All Active Problems Chest pain (Acute) Neck pain (Acute) Hyperglycemia (Acute) EMILIO (acute kidney injury) (Acute) Difficulty breathing (Acute) Acute pancreatitis (Acute) Upper airway obstruction (Resolved) Acute respiratory failure (Resolved) 54 y/o female with a complaint of chest pain 1. Chest pain rule out ACS admit to PCU with telemetry initial troponin is negative. EKG showed mild sinus bradycardia, but no acute ST changes SL nitroglycerin prn. allergic to aspirin. for stress test tomorrow if troponins remain negative 2. Hypertension: BP elevated in the 170s on admission. On atenolol 100 mg daily and spironolactone 50 mg daily. She claims compliance. IV hydralazine PRN. 3. Depression: on Celexa. 4. Uncomplicated Type 2 diabetes mellitus. On Lantus 10 units nightly and glimepiride 4 mg twice daily. Insulin sliding scale. Accu-Cheks AC at bedtime. DVT prophylaxis: Lovenox Code Status: Full code Patient counseled extensively about different types of CODE STATUS including full code, DNR CCA and DNR CCA. Patient elects to be full code. Total avod-ex-ugwa time 16 minutes. Code Visit OBSV E&M: 13309 Initial observation care L2 Procedures: 24980 Advncd Care Plan 30 Min
--- NOTE | 2019-07-12 19:41 | EKG12_ITS ---
Test Reason : CP Blood Pressure : / mmHG Vent. Rate : 052 BPM Atrial Rate : 052 BPM P-R Int : 126 ms QRS Dur : 088 ms QT Int : 464 ms P-R-T Axes : 010 -01 039 degrees QTc Int : 431 ms Sinus bradycardia Otherwise normal ECG Confirmed by LILLIAN LEPE, JUWAN ([id number]), photographic editor ELFEGO CHAVEZ ([id number]) on 07/18/2019 11:13:09 AM Referred By: OLIVA Confirmed By:JUWAN SNYDER MD
[2019-07-12] MEDS: Ondansetron 4 MG/2 ML Vial IV (20:59)
[2019-07-12] MEDS: Zolpidem Tartrate 5 MG Tablet PO (22:31)
[2019-07-12] MEDS: busPIRone 15 MG TABLET PO (22:31)
[2019-07-12] MEDS: Acetaminophen 325 MG Tablet 650 MG PO (22:34)
[2019-07-12] MEDS: Famotidine 20 MG Tablet 40 MG PO (22:39)
[2019-07-12] MEDS: Citalopram 40 MG TABLET PO (22:46)
[2019-07-13 00:41] LABS: Bedside Glucose 105 mg/dL (70-110)
[2019-07-13 01:15] VITALS: BP 125/66; PULSE 57; RESP 16; TEMP 36.6; O2SAT 95
[2019-07-13 02:59] VITALS: PULSE 55
--- NOTE | 2019-07-13 05:55 | EKG12_ITS ---
Test Reason : CP Blood Pressure : / mmHG Vent. Rate : 053 BPM Atrial Rate : 053 BPM P-R Int : 134 ms QRS Dur : 082 ms QT Int : 446 ms P-R-T Axes : 015 -07 025 degrees QTc Int : 418 ms Sinus bradycardia Inferior infarct , age undetermined , cannnot be excluded Abnormal ECG Confirmed by LILLIAN LEPE, JUWAN ([id number]), deputy editor in chief ELFEGO CHAVEZ ([id number]) on 07/18/2019 11:13:54 AM Referred By: Confirmed By:JUWAN SNYDER MD
[2019-07-13 05:56] LABS: Anion Gap 5 (5-15); BUN 13 mg/dL (7-18); BUN/Creat Ratio 16.4 RATIO (10-20); Calcium,Total 8.3 mg/dL (8.5-10.1); Chloride 102 mmol/L (98-107); Creatinine, Serum 0.79 mg/dL (0.55-1.02); EST Glomerular Filtration Rate 80 mL/min (>60); Est Glom Filt Rate - Afr Amer 97 mL/min (>60); Estimated Creatinine Clearance 73.25 ml/min; Glucose 110 mg/dL (74-106); Potassium 3.2 mmol/L (3.5-5.1); Sodium Level 134 mmol/L (136-145)
[2019-07-13 05:57] LABS: Absolute Lymphocyte Count 3.02 X10^3/uL (0.83-4.51); Absolute Neutrophil Count 3.6 X10^3/uL (2.0-7.7); Basophil# 0.07 X10^3/uL; Basophil% 0.9 % (0-1); Eosinophil# 0.19 X10^3/uL; Eosinophils% 2.5 % (0-5); Hematocrit 39.3 % (37-47); Lymphocyte # 3.02 X10^3/ul (4.0); Lymphocyte % 40.1 % (19-41); Mean Corp Hgb Conc 33.1 g/dL (32-36); Mean Corpuscular Hgb 29.3 pg (27.0-32.0); Mean Corpuscular Volume 88.5 fL (81-99); Monocyte# 0.51 X10^3/uL; Monocyte% 6.8 % (0-10); NRBC Flagged by Analyzer 0 % (0-5); Neutrophil # 3.63 X10^3/uL (2.7-7.7); Neutrophil % 48.2 % (47-70); Platelet Count 180 K/mm3 (150-450); RBC Distribution Width CV 12.6 % (11.6-14.6); RBC Distribution Width SD 40.8 fl (35.1-43.9); Red Blood Count 4.44 M/mm3 (4.2-5.4); White Blood Count 7.5 K/mm3 (4.4-11.0)
[2019-07-13 06:25] VITALS: BP 129/61; PULSE 56; RESP 16; TEMP 36.6; O2SAT 94
[2019-07-13] MEDS: busPIRone 15 MG TABLET PO ×2 (06:28→14:24)
[2019-07-13 06:40] LABS: Bedside Glucose 132 mg/dL (70-110)
[2019-07-13 07:00] VITALS: PULSE 60
[2019-07-13 07:50] VITALS: O2SAT 94
[2019-07-13] MEDS: 0.9% Saline Lock 10 ML Syringe IV (07:56)
--- NOTE | 2019-07-13 10:07 | CASEMGMT ---
LW/POA forms scanned into summary tab of [facility], Gretchen Mandujano is listed as medical POA. PRITESH Heredia
--- NOTE | 2019-07-13 11:35 | STRESSREP ---
Stress Test Report Date: 07-13-2019 Procedure: Pharmacologic stress nuclear imaging study Indications: Chest pain Consent: Per the patient Procedure: The patient underwent pharmacologic (Regadenoson) evaluation with a peak heart rate of 110 beats per minute (66 %predicted maximal heart rate) and a peak blood pressure of 150/90 mmHg. The baseline ECG demonstrated normal sinus rhythm. The peak pharmacologic ECG demonstrated no obvious ECG changes. There were no cardiac dysrhythmias pretest, during pharmacologic infusion, or recovery. There was no complaint of chest discomfort during pharmacologic infusion or recovery. The examination was discontinued secondary to completion of protocol. Impression: 1. Pharmacologic (Regadenoson) evaluation 2. Peak pharmacologic ECG with no obvious ECG changes. 3. There were no cardiac dysrhythmias pretest, during pharmacologic infusion, or recovery. 4. Nuclear images pending Myocardial perfusion imaging study: Technique: The patient was injected with 14.8 millicuries of technetium 99m Cardiolite and subsequently rest SPECT Cardiolite nuclear imaging was obtained in the horizontal long, vertical long, and short axis views. The patient underwent pharmacologic (Regadenoson) evaluation with a peak heart rate of 110 beats per minute (66 % percent predicted maximal heart rate) and a peak blood pressure of 150/90 mmHg. The patient was injected with 44.7 millicuries of technetium 99m Cardiolite and subsequently stress SPECT Cardiolite nuclear imaging was obtained in the horizontal long, vertical long, and short axis views. A gated Cardiolite study at peak stress was obtained. Interpretation: Rest and stress SPECT Cardiolite nuclear imaging status post realignment, normalization, and attenuation correction demonstrate relative uniform tracer uptake and myocardial perfusion appearing within normal limits. There is end systolic thickening and brightening. The gated Cardiolite study demonstrates myocardial thickening and inward wall motion. The reported LVEF is 68 %. Impression: 1. Rest and stress SPECT Cardiolite nuclear imaging demonstrate relative uniform tracer uptake and myocardial perfusion appearing within normal limits. 2. The gated Cardiolite study reports an LVEF of 68 %. This note was generated with [employer] software. It may contain incorrect words, spelling, and punctuation that were not noted in checking the note before signing.
[2019-07-13 12:03] VITALS: BP 148/95; PULSE 72; RESP 16; TEMP 36.4; O2SAT 94
[2019-07-13] MEDS: Acetaminophen 325 MG Tablet 650 MG PO (12:10)
[2019-07-13] MEDS: Atenolol 100 MG Tablet PO (12:12)
[2019-07-13] MEDS: Pantoprazole Sodium 40 MG Tablet PO (12:12)
[2019-07-13] MEDS: Loratadine 10 MG Tablet PO (12:12)
[2019-07-13] MEDS: Insulin Lispro 100 UNIT/ML INSULN.PEN SC (12:21)
[2019-07-13] MEDS: Enoxaparin 40 MG/0.4 ML Syringe SC (12:22)
[2019-07-13] MEDS: Spironolactone 50 MG Tablet PO (12:22)
[2019-07-13 12:30] LABS: Bedside Glucose 235 mg/dL (70-110)
--- NOTE | 2019-07-13 13:30 | PCM.DC ---
You will use the following diet at home:: Calorie/Carbohydrate Controlled (specify 1200, 1400, etc) - 1800 rashi Your food should be the consistency of: Regular Your liquids should be the consistency of: Regular/Thin Discharge Activity: Return to Normal Activity Weight Bearing Status: Full weight bearing Allergies/Adverse Reactions: Allergies bupropion [From Wellbutrin] Allergy (Verified 07/12/19 16:25) Angioedema lisinopril Allergy (Verified 07/12/19 16:25) Angioedema sulfamethoxazole [From Bactrim] Allergy (Verified 07/12/19 16:25) Rash trimethoprim [From Bactrim] Allergy (Verified 07/12/19 16:25) Rash acetaminophen [From Vicodin] Adverse Reaction (Verified 07/12/19 16:25) Nausea/Vom/Diarrhea aspirin Adverse Reaction (Verified 07/12/19 16:25) Nausea/Vom/Diarrhea hydrocodone [From Vicodin] Adverse Reaction (Verified 07/12/19 16:25) Nausea/Vom/Diarrhea Medications to take at Discharge Loratadine [Claritin] 10 mg PO DAILY 12/16/16 Glimepiride [Amaryl] 4 mg PO BID 05/25/17 Fluticasone 0.05% [Flonase Nasal [place]] 1 spray NASAL DAILY PRN PRN 07/06/18 Lansoprazole 30 mg PO DAILY 07/06/18 Citalopram [Celexa] 40 mg PO QHS 01/01/19 Buspirone HCl 15 mg PO TID 02/20/19 Ranitidine HCl 300 mg PO QHS 02/20/19 Spironolactone 50 mg PO DAILY 02/20/19 Albuterol IH (ProAir) [Proair Hfa] 2 puff INHALATION Q4H PRN PRN 03/16/19 Albuterol Sulfate 2.5 mg IH Q4H PRN PRN 03/16/19 Atenolol [Tenormin (beta haley)] 100 mg PO DAILY 07/10/19 Diphenhydramine HCl [Benadryl Allergy] 25 mg PO DAILY PRN PRN 07/10/19 Insulin Glargine [Lantus SoloStar Pen] 10 units SUBCUT QHS 07/10/19 Meloxicam 15 mg PO DAILY PRN 07/10/19 Zolpidem Tartrate [Ambien] 5 mg PO QHS 07/10/19 Primary Care Physician: Joaquim Burks DO [Primary Care Provider] - Please follow up with your Primary Care Physician in: in 2-3 weeks Test Results: Test results from this visit will be discussed in further detail at your follow-up appointment, if applicable.
--- NOTE | 2019-07-13 14:20 | PHA.DC.MR ---
Pharmacy Service has performed discharge medication reconciliation for this patient. Home Medications Loratadine [Claritin] 10 mg PO DAILY 12/16/16 Glimepiride [Amaryl] 4 mg PO BID 05/25/17 Fluticasone 0.05% [Flonase Nasal [place]] 1 spray NASAL DAILY PRN PRN 07/06/18 Lansoprazole 30 mg PO DAILY 07/06/18 Citalopram [Celexa] 40 mg PO QHS 01/01/19 Buspirone HCl 15 mg PO TID 02/20/19 Ranitidine HCl 300 mg PO QHS 02/20/19 Spironolactone 50 mg PO DAILY 02/20/19 Albuterol IH (ProAir) [Proair Hfa] 2 puff INHALATION Q4H PRN PRN 03/16/19 Albuterol Sulfate 2.5 mg IH Q4H PRN PRN 03/16/19 Atenolol [Tenormin (beta haley)] 100 mg PO DAILY 07/10/19 Diphenhydramine HCl [Benadryl Allergy] 25 mg PO DAILY PRN PRN 07/10/19 Insulin Glargine [Lantus SoloStar Pen] 10 units SUBCUT QHS 07/10/19 Meloxicam 15 mg PO DAILY PRN 07/10/19 Zolpidem Tartrate [Ambien] 5 mg PO QHS 07/10/19 The patient's discharge medication list was reviewed for discrepancies and discrepancies were resolved.
--- NOTE | 2019-07-13 14:40 | NURSING ---
Reviewed and agreed on all charting with Madeleine Cornejo RN
--- NOTE | 2019-07-15 10:51 | PCM.DC.SUM ---
Discharge Date and Diagnosis Date of Admission: 07/12/19 Date of Discharge: 07/13/19 - Primary Discharge Diagnosis #1 musculoskeletal chest pain #2 essential hypertension #3 chronic depression #4 type 2 diabetes - Secondary Discharge Diagnosis Chronic Problems Morbid obesity (Chronic) SHARMIN (obstructive sleep apnea) (Chronic) Former tobacco use (Chronic) Tracheostomy dependence (Chronic) Anxiety (Chronic) GERD (gastroesophageal reflux disease) (Chronic) COPD (chronic obstructive pulmonary disease) (Chronic) Morbid obesity (Chronic) Anxiety and depression (Chronic) Status post tracheostomy (Chronic) Depression (Chronic) Angioedema (Chronic) Type II diabetes mellitus (Chronic) Hyperlipidemia (Chronic) Hypertension (Chronic) Hospital Course and Treatment Operations: None Procedures: Nuclear stress test Summary of Care Provided: The patient is a 54 year old F was seen in the emergency room at [facility] with a chief complaint of chest pain. Work-up in the emergency room included an EKG which showed mild bradycardia but no acute ST changes, chest x-ray showed no acute process, CBC was unremarkable, troponin was negative. Patient was placed in observation status on PCU, serial enzymes were obtained and these remain negative. Patient underwent a nuclear stress test on 07/13/2019 which was negative for reversible ischemia. On 07/13/2019, patient was seen and examined: On examination she appeared in good health and spirits. Vital signs as documented. Skin warm and dry and without overt rashes. Neck without JVD. Lungs clear. Heart exam notable for regular rhythm, normal sounds and absence of murmurs, rubs or gallops. Abdomen unremarkable and without evidence of organomegaly, masses, or abdominal aortic enlargement. Extremities nonedematous. Neuro: Cranial nerves II through XII are grossly intact, no focal motor deficits were noted, sensation to light touch and pinprick is intact. Psych: Patient is alert and oriented x3, she does not appear anxious or depressed Patient was discharged home in stable condition on 07/13/2019 - Physical Exam Vitals/I&O's: Vital Signs Temp Pulse Resp BP Pulse Ox 97.5 F L 72 16 148/95 H 94 07/13/19 12:03 07/13/19 12:03 07/13/19 12:03 07/13/19 12:03 07/13/19 12:03 Oxygen Flow Rate (L/min) 4 Oxygen Delivery Method Room Air Weight: 118.2 kg Body Mass Index (BMI) 43.3 Finger Stick Blood Glucose 382 Discharge Activity: Return to Normal Activity Weight Bearing Status: Full weight bearing Home Medications: Medications to take at Discharge Loratadine [Claritin] 10 mg PO DAILY 12/16/16 Glimepiride [Amaryl] 4 mg PO BID 05/25/17 Fluticasone 0.05% [Flonase Nasal [place]] 1 spray NASAL DAILY PRN PRN 07/06/18 Lansoprazole 30 mg PO DAILY 07/06/18 Citalopram [Celexa] 40 mg PO QHS 01/01/19 Buspirone HCl 15 mg PO TID 02/20/19 Ranitidine HCl 300 mg PO QHS 02/20/19 Spironolactone 50 mg PO DAILY 02/20/19 Albuterol IH (ProAir) [Proair Hfa] 2 puff INHALATION Q4H PRN PRN 03/16/19 Albuterol Sulfate 2.5 mg IH Q4H PRN PRN 03/16/19 Atenolol [Tenormin (beta haley)] 100 mg PO DAILY 07/10/19 Diphenhydramine HCl [Benadryl Allergy] 25 mg PO DAILY PRN PRN 07/10/19 Insulin Glargine [Lantus SoloStar Pen] 10 units SUBCUT QHS 07/10/19 Meloxicam 15 mg PO DAILY PRN 07/10/19 Zolpidem Tartrate [Ambien] 5 mg PO QHS 07/10/19 Primary Care Physician: Joaquim Burks DO [Primary Care Provider] - Please follow up with your Primary Care Physician in: in 2-3 weeks Disposition: Home Minutes spent on discharge:: 30 Patient Condition:: Stable Medical Necessity - Tobacco Use Smoking Status: Former smoker Meaningful Use Info Meaningful Use Diagnoses (Choose all that apply): None applicable Code Visit OBSV E&M: 51151 Observation care discharge
== END 2019-07-13 13:30 | disposition home or self-care (01) ==
LOC: ED 17:14 → PCU 19:05
PROVIDERS: Admitting Provider Student in an Organized Health Care Education/Training Program; Emergency Provider Emergency Medicine; PCP Student in an Organized Health Care Education/Training Program; Visit Provider Internal Medicine
DX: R07.9 Chest pain, unspecified (principal); E11.9 Type 2 diabetes mellitus without complications; I10 Essential (primary) hypertension; E66.01 Morbid (severe) obesity due to excess calories; G47.33 Obstructive sleep apnea (adult) (pediatric); I25.2 Old myocardial infarction; E78.5 Hyperlipidemia, unspecified; K21.9 Gastro-esophageal reflux disease without esophagitis; J44.9 Chronic obstructive pulmonary disease, unspecified; F41.9 Anxiety disorder, unspecified; F32.9 Major depressive disorder, single episode, unspecified; Z79.899 Other long term (current) drug therapy; Z79.84 Long term (current) use of oral hypoglycemic drugs; Z87.891 Personal history of nicotine dependence; Z68.41 Body mass index [BMI] 40.0-44.9, adult; Z71.3 Dietary counseling and surveillance; Z93.0 Tracheostomy status
CPT/HCPCS: 36415; 71045; 78452; 80048; 82962; 84484; 85025; 93005; 93017; 96372; 96374; 96375; 99218; 99285; A9500; A4216; G0378; J2405; J2785

== ENCOUNTER 2019-08-27 16:10 | Observation (INO) | payer MEDICARE, MEDICAID, SELFPAY ==
[2019-07-12 19:28] VITALS: BMI 43.3
[2019-08-27 16:11] VITALS: BP 164/92; PULSE 70; RESP 18; TEMP 36.7; O2SAT 95; BMI 43.2
--- NOTE | 2019-08-27 16:36 | RAD_ITS ---
STUDY: X-RAY CHEST REASON FOR EXAM: Female, 54 years old. Acute chest pain TECHNIQUE: Single AP portable view of the chest. COMPARISON: 07/12/2019 FINDINGS: EKG leads overlie the chest The lungs are clear and expanded. There is no demonstrated pleural abnormality. Normal size heart. Normal mediastinum and christy. Normal visualized pulmonary arteries. Normal visualized aortic arch and descending thoracic aorta. Normal visualized thoracic spine. Normal visualized ribs, clavicles, and shoulders. There is no demonstrated abnormality of the visualized soft tissue structures of the upper abdomen. RAD/Chest 1 View (Portable) IMPRESSION: No acute pulmonary process Electronically Signed: Calixto Cade MD at 17:04 EST , Service support ,
--- NOTE | 2019-08-27 16:36 | EKG12_ITS ---
Test Reason : REPEAT-INCREASED CP Blood Pressure : / mmHG Vent. Rate : 066 BPM Atrial Rate : 066 BPM P-R Int : 146 ms QRS Dur : 084 ms QT Int : 402 ms P-R-T Axes : 039 -11 041 degrees QTc Int : 421 ms Normal sinus rhythm Possible Inferior infarct , age undetermined Abnormal ECG Confirmed by LILLIAN LEPE, JUWAN ([id number]), editor in chief newspaper ELFEGO CHAVEZ ([id number]) on 08/29/2019 1:36:15 PM Referred By: JAKE Confirmed By:JUWAN SNYDER MD
--- NOTE | 2019-08-27 16:37 | ED.DCSUM_ITS ---
History of Present Illness Chief Complaint: Chest Pain Informant: Patient Onset: Days - 2 days Context: Gradual Onset Timing: Waxes and wanes Current Severity: Mild Maximum Severity: Moderate Narrative: Patient presents with sternal chest pain for the past 2 days. Been waxing and waning. It is not necessarily worsened with exertion. She denies shortness of breath or sweats. She states she is also had some intermittent blurred vision. Her blood sugar this morning was in the 190s. She states prior to coming to the ER her left ear and left arm also felt painful, but that is completely resolved now. Patient was admitted to the hospital in June of this year with similar chest pain. Stress test was unremarkable. Patient states that she is also had a chronic rash on her right arm. She recently had a biopsy and states she was told that it was secondary to a medication. She was recently told to stop her Mobic. Patient also reports increased anxiety and depression after the loss of her brother recently. She states she is just not dealing well with it. - Past Medical History (1) Angioedema Status: Resolved (2) Anxiety and depression Status: Chronic (3) COPD (chronic obstructive pulmonary disease) Status: Chronic (4) GERD (gastroesophageal reflux disease) Status: Chronic (5) Hyperlipidemia Status: Chronic (6) Hypertension Status: Chronic (7) Morbid obesity Status: Chronic (8) SHARMIN (obstructive sleep apnea) Status: Chronic (9) Type II diabetes mellitus Status: Chronic Past Medical History - Allergies and Home Meds Allergies/Adverse Reactions: Allergies bupropion [From Wellbutrin] Allergy (Verified 08/27/19 16:16) Angioedema lisinopril Allergy (Verified 08/27/19 16:16) Angioedema sulfamethoxazole [From Bactrim] Allergy (Verified 08/27/19 16:16) Rash trimethoprim [From Bactrim] Allergy (Verified 08/27/19 16:16) Rash acetaminophen [From Vicodin] Adverse Reaction (Verified 08/27/19 16:16) Nausea/Vom/Diarrhea aspirin Adverse Reaction (Verified 08/27/19 16:16) Nausea/Vom/Diarrhea hydrocodone [From Vicodin] Adverse Reaction (Verified 08/27/19 16:16) Nausea/Vom/Diarrhea Primary Care Physician: Joaquim Burks DO [Primary Care Provider] - Prior records reviewed: Yes Surgical History: - - Tracheostomy, cholecystectomy, bilateral tubal ligation, NovaSure, bladder suspension surgery. Smoking Status: Former smoker - Family History Maternal Family History: Reports: Diabetes, High Cholesterol, Heart Disease, Hypertension Paternal Family History: Reports: Diabetes, High Cholesterol, Heart Disease, Hypertension Review of Systems General: Denies: Chills, Fever Eyes: Denies: Visual changes - bilaterally ENT: Reports: Left ear pain Cardiovascular: Reports: Chest pain. Denies: Palpitations, Heart racing Respiratory: Denies: Dyspnea, Cough Gastrointestinal: Denies: Abdominal pain, Nausea, Vomiting, Diarrhea Genitourinary: Denies: Dysuria Musculoskeletal: Denies: Swelling, Extremity Pain Skin: Denies: Rash Neurological: Denies: Headache Psych: Reports: Depression Physical Exam Vital Signs/Narrative: Vital Signs Temp Pulse Resp BP Pulse Ox 08/27/19 16:11 98.1 F 70 18 164/92 H 95 Inital Vital Signs reviewed: Yes General: Well nourished, Well developed Head: Normocephalic ENT: Moist mucous membranes Neck: Supple Cardiovascular: Regular rate, Regular rhythm Respiratory: No distress, CTA bilaterally Abdomen: Soft, Normal bowel sounds, Tender - Reproducible tenderness in the upper epigastrium and lower sternum. Extremities: Nontender Skin: Normal color Neurological: Alert, Oriented x3 Psychological: Normal affect Diagnostic/Tx/Re-eval Impressions Chest X-Ray 08/27/19 16:36 IMPRESSION: No acute pulmonary process Electronically Signed: Calixto Cade MD at 17:04 EST , Service support , 08/27/19 16:36 Chest 1 View (Portable) [RAD] Stat Laboratory Results 08/27/19 08/27/19 16:50 16:50 WBC 8.7 RBC 4.65 Hgb 14.4 Hct 41.6 MCV 89.5 MCH 31.0 MCHC 34.6 RDW Std Deviation 42.2 RDW Coeff of Cecil 12.9 Plt Count 221 MPV 11.2 Immature Gran % (Auto) 0.900 Neut % (Auto) 57.2 Lymph % (Auto) 32.0 [place] % (Auto) 7.3 Eos % (Auto) 1.6 Baso % (Auto) 1.0 Absolute Neuts (auto) 5.0 Absolute Lymphs (auto) 2.80 Nucleated RBC % 0 Sodium 136 Potassium 4.0 Chloride 106 Carbon Dioxide 22.0 Anion Gap 8 BUN 12 Creatinine 1.01 Estim Creat Clear Calc 57.30 Est GFR (MDRD) Af Amer 73 Est GFR (MDRD) Non-Af 61 BUN/Creatinine Ratio 11.9 Glucose 192 H Calcium 8.6 Total Bilirubin 0.50 Direct Bilirubin < 0.05 AST 23 ALT 28 Alkaline Phosphatase 121 H Troponin I < 0.015 Total Protein 6.8 Albumin 3.3 Globulin 3.5 Lipase 217 - EKG Initial EKG Interpretation: Sinus Rhythm - Sinus at 65 with no acute ischemia. Follow-up EKG Interpretation: Sinus Rhythm - Sinus at 66 with no acute ischemia. - Medical Decision Making Patient was given aspirin as well as Ativan as she really felt a lot of this was anxiety related. She reported no improvement and in fact stated her pain worsened with radiation down both arms. Repeat EKG was obtained at that time and is unchanged. She is given some morphine and Zofran. Just prior to my re- eval patient rings out again stating her pain is worse. Morphine did help for a short time. Patient did have a negative stress test less than 2 months ago, however she continues to have significant pain. I will speak with hospitalist regarding admission for cycling of cardiac enzymes and further evaluation. ED Disposition - Plan for ED Patient: Disposition: Acute Care Hospital [facility] Diagnosis: Chest pain Referrals: Joaquim Burks DO [Primary Care Provider] -
[2019-08-27] MEDS: LORazepam 0.5 MG Tablet PO (16:50)
[2019-08-27] MEDS: 0.9% Normal Saline 1,000 ML 150 ML IV (17:06)
[2019-08-27 17:07] LABS: Basophil# 0.09 X10^3/uL; Eosinophil# 0.14 X10^3/uL; Eosinophils% 1.6 % (0-5); Hematocrit 41.6 % (37-47); Hemoglobin 14.4 g/dL (12.0-15.0); Mean Corp Hgb Conc 34.6 g/dL (32-36); Mean Corpuscular Volume 89.5 fL (81-99); Mean Platelet Vol. 11.2 fl (6.2-12.0); Monocyte# 0.64 X10^3/uL; Monocyte% 7.3 % (0-10); NRBC Flagged by Analyzer 0 % (0-5); Neutrophil # 4.99 X10^3/uL (2.7-7.7); Neutrophil % 57.2 % (47-70); Platelet Count 221 K/mm3 (150-450); RBC Distribution Width CV 12.9 % (11.6-14.6); RBC Distribution Width SD 42.2 fl (35.1-43.9); Red Blood Count 4.65 M/mm3 (4.2-5.4); White Blood Count 8.7 K/mm3 (4.4-11.0)
--- NOTE | 2019-08-27 17:24 | EKG12_ITS ---
Test Reason : CP Blood Pressure : / mmHG Vent. Rate : 065 BPM Atrial Rate : 065 BPM P-R Int : 132 ms QRS Dur : 084 ms QT Int : 412 ms P-R-T Axes : -05 -05 063 degrees QTc Int : 428 ms Normal sinus rhythm Inferior infarct , age undetermined Abnormal ECG Confirmed by LILLINA LEPE, JUWAN ([id number]), editor house organ ELFEGO CHAVEZ ([id number]) on 08/29/2019 1:36:30 PM Referred By: PREET Confirmed By:JUWAN SNYDER MD
[2019-08-27] MEDS: Ondansetron 4 MG/2 ML Vial IV (17:32)
[2019-08-27] MEDS: Morphine 4 MG/ML Syringe IV ×2 (17:32→18:24)
[2019-08-27 17:34] LABS: AST(SGOT) 23 U/L (15-37); Alanine Aminotransfer ALT/SGPT 28 U/L (13-56); Albumin, Serum 3.3 g/dL (3.2-5.0); Alkaline Phosphatase 121 U/L (45-117); Anion Gap 8 (5-15); BUN 12 mg/dL (7-18); BUN/Creat Ratio 11.9 RATIO (10-20); Bilirubin, Direct < 0.05 mg/dL (0.00-0.30); Calcium,Total 8.6 mg/dL (8.5-10.1); Chloride 106 mmol/L (98-107); Creatinine, Serum 1.01 mg/dL (0.55-1.02); EST Glomerular Filtration Rate 61 mL/min (>60); Est Glom Filt Rate - Afr Amer 73 mL/min (>60); Globulin 3.5 g/dL (2.2-4.2); Glucose 192 mg/dL (74-106); Lipase 217 U/L (73-393); Protein, Total 6.8 g/dL (6.4-8.2); Sodium Level 136 mmol/L (136-145)
--- NOTE | 2019-08-27 17:45 | CM.ED ---
SOCIAL WORK INFORMANT: DR. JOSEPH REASON FOR REFERRAL: DEPRESSION/ANXIETY D/T RECENT LOSS OF BROTHER CHIEF COMPLIANT: CHEST PAIN MET WITH PATIENT IN ROOM. INTRODUCED ROLE AND REASON FOR REFERRAL. PATIENT STATES IS HAVING A BAD DAY AND REPORTS FEELINGS OF IRRITATION. PATIENT DISCUSSED SEVERAL SOCIAL STRESSORS THAT HAPPENED TODAY REGARDING HER BANK CARD AND BILL PAY. PATIENT JANIS IS OLDEST OF 6 CHILDREN AND HAS LOST 2 OF HER SIBLINGS. PATIENT STATES BROTHER, WHO WAS DISABLED 1 MONTH AGO. PATIENT JANIS HAS NOT BEEN DEALING WELL WITH HER GRIEF. PATIENT HAS ALSO GONE THROUGH THE LOSS OF HER FATHER 24 YEARS AGO. PATIENT JANIS FOLLOWS WITH DR. TORO FOR PRIMARY CARE AND DR. TORO MANAGES PATIENT'S MEDICATIONS. PATIENT JANIS IS TREATED WITH MEDICATIONS FOR ANXIETY AND DEPRESSION AND HAS BEEN ON THE MEDICATIONS FOR SOME TIME. PATIENT BELIEVES SHE WOULD BENEFIT FROM COUNSELING SERVICES. LIST OF AREA AGENCIES PROVIDED FOR PATIENT TO REVIEW AND INFORMED PATIENT THIS WORKER CAN ASSIST WITH MAKING FIRST APPOINTMENT IF NEEDED. PATIENT REPORTS WILL REVIEW LIST. PATIENT ADMITS TO OCCASIONAL MARIJUANA USE. MUCH EMOTIONAL SUPPORT AND ACTIVE LISTENING PROVIDED THROUGHOUT. WILL CONTINUE TO FOLLOW AND ASSIST NEEDED. 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
[2019-08-27 18:00] VITALS: BP 158/72; PULSE 65; RESP 12; O2SAT 95
[2019-08-27] MEDS: proMETHazine 25 MG/ML Syringe 12.5 MG IV (18:24)
[2019-08-27 18:50] VITALS: BMI 94.6
--- NOTE | 2019-08-27 18:56 | PCM.HP.STD ---
History of Present Illness Date of Admission: 08/27/19 Chief Complaint: Chest pain The patient is a 54 year old F with a PMH as below who presents with chest pain that started a few days ago. It comes and goes and she says nothing makes it better or worse. Is not worse with activity and does not improve with rest. She also has not had much of an appetite and has had episodes of diarrhea as well. Of note her brother recently and she states that she has really been working through it and has had both anxiety and depression because of it. She says that this feels like her hiatal hernia, she had a burning sensation like this in the past but she also then goes on to say that the pain is also somewhat pressure-like and goes into her back. She has not had any major shortness of breath but she has had some lightheadedness, which she denies radiation of the pain to her arm or neck/face. She had a stress test done at the end of June which was completely normal, and her pain is reproducible when you push on the xiphoid process. In the ER her initial troponin was unremarkable however her blood pressure was elevated during my exam to 180 systolic. Chest x-ray was unremarkable. Past Medical History Past Medical History (Chronic Problems): Chronic Problems Morbid obesity (Chronic) SHARMIN (obstructive sleep apnea) (Chronic) Former tobacco use (Chronic) Tracheostomy dependence (Chronic) Anxiety (Chronic) GERD (gastroesophageal reflux disease) (Chronic) COPD (chronic obstructive pulmonary disease) (Chronic) Morbid obesity (Chronic) Anxiety and depression (Chronic) Status post tracheostomy (Chronic) Depression (Chronic) Type II diabetes mellitus (Chronic) Hyperlipidemia (Chronic) Hypertension (Chronic) Allergies bupropion [From Wellbutrin] Allergy (Verified 08/27/19 16:16) Angioedema lisinopril Allergy (Verified 08/27/19 16:16) Angioedema sulfamethoxazole [From Bactrim] Allergy (Verified 08/27/19 16:16) Rash trimethoprim [From Bactrim] Allergy (Verified 08/27/19 16:16) Rash acetaminophen [From Vicodin] Adverse Reaction (Verified 08/27/19 16:16) Nausea/Vom/Diarrhea aspirin Adverse Reaction (Verified 08/27/19 16:16) Nausea/Vom/Diarrhea hydrocodone [From Vicodin] Adverse Reaction (Verified 03/02/20 16:16) Nausea/Vom/Diarrhea Home Medications: Ambulatory Orders Medication Instructions Recorded Loratadine [Claritin] 10 mg PO DAILY 12/16/16 Glimepiride [Amaryl] 4 mg PO BID 05/25/17 Fluticasone 0.05% [Flonase Nasal 1 spray NASAL DAILY PRN PRN 07/06/18 [place]] Lansoprazole 30 mg PO DAILY 07/06/18 Citalopram [Celexa] 40 mg PO QHS 01/01/19 Buspirone HCl 15 mg PO TID 02/20/19 Ranitidine HCl 300 mg PO QHS 02/20/19 Spironolactone 50 mg PO DAILY 02/20/19 Albuterol IH (ProAir) [Proair Hfa] 2 puff INHALATION Q4H PRN PRN 03/16/19 Albuterol Sulfate 2.5 mg IH Q4H PRN PRN 03/16/19 Atenolol [Tenormin (beta haley)] 100 mg PO DAILY 07/10/19 Diphenhydramine HCl [Benadryl 25 mg PO DAILY PRN PRN 07/10/19 Allergy] Insulin Glargine [Lantus SoloStar 10 units SUBCUT QHS 07/10/19 Pen] Zolpidem Tartrate [Ambien] 5 mg PO QHS 07/10/19 Surgical History: - - Tracheostomy, cholecystectomy, bilateral tubal ligation, NovaSure, bladder suspension surgery. 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 Denies: Palpitations Respiratory: Denies: Cough, Shortness of Breath, Shortness of breath at rest, Sputum production Gastrointestinal: Reports: Abdominal Pain, Diarrhea. Denies: Nausea, Vomiting Genitourinary: Denies: Dysuria Musculoskeletal: Denies: Joint Pain, Joint Tenderness Skin: Denies: Rash, Wounds Neurological: Denies: Numbness, Tingling, Focal weakness Psychiatric: Reports: Anxiety, Depression Hematologic/ Lymphatic: Denies: Easy Bruising, Easy Bleeding VTE Information - Inpt Only VTE Present on Admission: No Patient Problems: Active and Suspected Problems Chest pain (Acute) - Physical Exam Vitals/I&O's: Vital Signs Temp Pulse Resp BP Pulse Ox 98.1 F 65 12 158/72 H 95 08/27/19 16:11 08/27/19 18:00 08/27/19 18:00 08/27/19 18:00 08/27/19 18:00 Oxygen Delivery Method Room Air Weight: 260 lb 2.327 oz Body Mass Index (BMI) 43.2 Finger Stick Blood Glucose 382 General: Alert, Oriented x3, Cooperative, No apparent distress HEENT: Atraumatic, PERRLA, EOMI, Normocephalic Oral: Moist Mucosa Neck: Supple, No JVD Lungs: Clear to auscultation, Normal air movement, No rhonchi, No wheeze, No rales Cardiovascular: Regular rate, Regular Rhythm, Normal S1, Normal S2, No murmurs Abdomen: Soft, Non-Distended, No Hepato-splenomegaly, Tender - Tenderness to the epigastric/xiphoid process, this reproduces her chest pain almost exactly Extremities: No edema, Capillary Refill Less than 3 Seconds Skin: No rashes, No breakdown Neurological: Neuro grossly intact, Sensory exam intact to light touch and pain Psych/Mental Status: Flat Affect, Depressed Laboratory Results 08/27/19 16:50: WBC 8.7, RBC 4.65, Hgb 14.4, Hct 41.6, MCV 89.5, MCH 31.0, MCHC 34.6, RDW Std Deviation 42.2, RDW Coeff of [place] 12.9, Plt Count 221, MPV 11.2, Immature Gran % (Auto) 0.900, Neut % (Auto) 57.2, Lymph % (Auto) 32.0, [place] % (Auto) 7.3, Eos % (Auto) 1.6, Baso % (Auto) 1.0, Absolute Neuts (auto) 5.0, Absolute Lymphs (auto) 2.80, Nucleated RBC % 0 08/27/19 16:50: Sodium 136, Potassium 4.0, Chloride 106, Carbon Dioxide 22.0, Anion Gap 8, BUN 12, Creatinine 1.01, Estim Creat Clear Calc 57.30, Est GFR (MDRD) Af Amer 73, Est GFR (MDRD) Non-Af 61, BUN/Creatinine Ratio 11.9, Glucose 192 H, Calcium 8.6, Total Bilirubin 0.50, Direct Bilirubin < 0.05, AST 23, ALT 28, Alkaline Phosphatase 121 H, Troponin I < 0.015, Total Protein 6.8, Albumin 3.3, Globulin 3.5, Lipase 217 Current Medications Sodium Chloride () 1,000 mls @ 150 mls/hr IV .[id number] [facility] Last Admin: 08/27/19 17:06 Dose: 150 mls/hr Documented by: Assessment/Plan All Active Problems Chest pain (Acute) Neck pain (Acute) Hyperglycemia (Acute) EMILIO (acute kidney injury) (Acute) Difficulty breathing (Acute) Acute pancreatitis (Acute) Upper airway obstruction (Resolved) Acute respiratory failure (Resolved) Angioedema (Resolved) 1. Chest pain/hiatal hernia and GERD -She just had a stress test done July 13, 2019, and this was completely normal -Initial troponin is unremarkable, and we will serialized troponins -She feels like this is in her heart and that it is very similar to her previous hiatal hernia and GERD episodes, will continue with a GI cocktail as well as her PPI -Given how recent her stress test was unlikely to need repeat cardiology unless there is an elevation in her troponin -Continue with her PPI as well as Zantac 2. DM 2/morbid obesity -She is on glimepiride at home which we will hold and continue with a sliding scale insulin -Accu-Cheks AC at bedtime, discussed lifestyle modifications for weight loss. -Continue with Lantus 10 units at night 3. Anxiety/depression -Her brother recently which has thrown her anxiety and depression out of control, she does state that she is not dealing with this very well. -We will continue with Wellbutrin and Celexa 4. Hypertension -BP appears to be stable the 130s -Continue with atenolol and Aldactone -She does have a significant allergy to lisinopril, this caused angioedema and necessitated a trach previously DVT: Low risk Code Visit OBSV E&M: [id number] Initial observation care L2
[2019-08-27 19:01] VITALS: BP 121/68; PULSE 62; PULSE 63; RESP 18; TEMP 36.9; O2SAT 92
[2019-08-27] MEDS: Mag Hydrox/Al Hydrox/Simeth 30 ML UDC PO (19:39)
[2019-08-27 19:42] VITALS: BMI 94.6
--- NOTE | 2019-08-27 19:45 | EKG12_ITS ---
Test Reason : CP ADMIT Blood Pressure : / mmHG Vent. Rate : 059 BPM Atrial Rate : 059 BPM P-R Int : 140 ms QRS Dur : 088 ms QT Int : 420 ms P-R-T Axes : 014 -11 032 degrees QTc Int : 415 ms Sinus bradycardia Inferior infarct , age undetermined Abnormal ECG Confirmed by TIGRE LEPE, EDUARDO ([id number]), sound editor COLLINS QUEZADA ([id number] on 09/03/2019 4:07:36 PM Referred By: CARRIE Confirmed By:EDUARDO LANDEROS MD
[2019-08-27 20:52] VITALS: BP 141/79; PULSE 69; RESP 18; TEMP 37; O2SAT 94
[2019-08-27] MEDS: Famotidine 20 MG Tablet PO ×2 (21:07)
[2019-08-27] MEDS: Citalopram 40 MG TABLET PO (21:07)
[2019-08-27] MEDS: busPIRone 15 MG TABLET PO (21:07)
[2019-08-27] MEDS: Insulin Lispro 100 UNIT/ML INSULN.PEN SC (21:08)
[2019-08-27] MEDS: Zolpidem Tartrate 5 MG Tablet PO (21:12)
[2019-08-27 21:16] LABS: Bedside Glucose 176 mg/dL (70-110)
[2019-08-27] MEDS: Ketorolac 15 MG/ML Vial IV (21:30)
[2019-08-27 22:58] VITALS: PULSE 69
[2019-08-28] MEDS: Ketorolac 15 MG/ML Vial IV (02:10)
[2019-08-28 03:02] VITALS: PULSE 58
[2019-08-28 03:15] VITALS: BP 123/72; PULSE 68; RESP 16; TEMP 37; O2SAT 100
[2019-08-28] MEDS: busPIRone 15 MG TABLET PO (06:37)
[2019-08-28] MEDS: Insulin Lispro 100 UNIT/ML INSULN.PEN SC (06:37)
[2019-08-28 06:45] LABS: Bedside Glucose 208 mg/dL (70-110)
[2019-08-28 06:47] VITALS: PULSE 61
[2019-08-28 06:50] LABS: Absolute Lymphocyte Count 2.83 X10^3/uL (0.83-4.51); Absolute Neutrophil Count 2.5 X10^3/uL (2.0-7.7); Basophil# 0.06 X10^3/uL; Eosinophil# 0.16 X10^3/uL; Eosinophils% 2.6 % (0-5); Hematocrit 40.2 % (37-47); Hemoglobin 13.4 g/dL (12.0-15.0); Lymphocyte # 2.83 X10^3/ul (4.0); Lymphocyte % 46.6 % (19-41); Mean Corp Hgb Conc 33.3 g/dL (32-36); Mean Corpuscular Hgb 30.1 pg (27.0-32.0); Mean Corpuscular Volume 90.3 fL (81-99); Monocyte% 8.2 % (0-10); NRBC Flagged by Analyzer 0 % (0-5); Neutrophil % 41.3 % (47-70); Platelet Count 172 K/mm3 (150-450); RBC Distribution Width SD 42.8 fl (35.1-43.9); Red Blood Count 4.45 M/mm3 (4.2-5.4); White Blood Count 6.1 K/mm3 (4.4-11.0)
[2019-08-28 07:10] LABS: Anion Gap 6 (5-15); BUN 19 mg/dL (7-18); BUN/Creat Ratio 18.4 RATIO (10-20); Calcium,Total 8.5 mg/dL (8.5-10.1); Chloride 104 mmol/L (98-107); Creatinine, Serum 1.03 mg/dL (0.55-1.02); EST Glomerular Filtration Rate 59 mL/min (>60); Est Glom Filt Rate - Afr Amer 72 mL/min (>60); Estimated Creatinine Clearance 56.19 ml/min; Glucose 183 mg/dL (74-106); Potassium 3.9 mmol/L (3.5-5.1); Sodium Level 137 mmol/L (136-145)
[2019-08-28 09:28] VITALS: BP 140/76; PULSE 66; RESP 16; TEMP 37; O2SAT 95
[2019-08-28] MEDS: Loratadine 10 MG Tablet PO (09:30)
[2019-08-28] MEDS: Pantoprazole Sodium 40 MG Tablet PO (09:31)
--- NOTE | 2019-08-28 09:43 | PCM.DC ---
- Discharge Diagnoses Current Active Problems: Current Active and Chronic Problems Chest pain (Acute) Reason(s) for Visit for Discharge Instructions: Chest pain You will use the following diet at home:: Calorie/Carbohydrate Controlled (specify 1200, 1400, etc) - 1800, Cardiac Your food should be the consistency of: Regular Your liquids should be the consistency of: Regular/Thin Discharge Activity: Return to Normal Activity Instructions: What Is a Hiatal Hernia? Additional Instructions: Follow-up with your primary care doctor for adjustment of your antidepressants. Allergies/Adverse Reactions: Allergies bupropion [From Wellbutrin] Allergy (Verified 08/27/19 16:16) Angioedema lisinopril Allergy (Verified 08/27/19 16:16) Angioedema sulfamethoxazole [From Bactrim] Allergy (Verified 08/27/19 16:16) Rash trimethoprim [From Bactrim] Allergy (Verified 08/27/19 16:16) Rash acetaminophen [From Vicodin] Adverse Reaction (Verified 08/27/19 16:16) Nausea/Vom/Diarrhea aspirin Adverse Reaction (Verified 08/27/19 16:16) Nausea/Vom/Diarrhea hydrocodone [From Vicodin] Adverse Reaction (Verified 08/27/19 16:16) Nausea/Vom/Diarrhea Medications to take at Discharge Loratadine [Claritin] 10 mg PO DAILY 12/16/16 Glimepiride [Amaryl] 4 mg PO BID 05/25/17 Fluticasone 0.05% [Flonase Nasal [place]] 1 spray NASAL DAILY PRN PRN 07/06/18 Lansoprazole 30 mg PO DAILY 07/06/18 Citalopram [Celexa] 40 mg PO QHS 01/01/19 Buspirone HCl 15 mg PO TID 02/20/19 Ranitidine HCl 300 mg PO QHS 02/20/19 Spironolactone 50 mg PO DAILY 02/20/19 Albuterol IH (ProAir) [Proair Hfa] 2 puff INHALATION Q4H PRN PRN 03/16/19 Albuterol Sulfate 2.5 mg IH Q4H PRN PRN 03/16/19 Atenolol [Tenormin (beta haley)] 100 mg PO DAILY 07/10/19 Diphenhydramine HCl [Benadryl Allergy] 25 mg PO DAILY PRN PRN 07/10/19 Insulin Glargine [Lantus SoloStar Pen] 10 units SUBCUT QHS 07/10/19 Zolpidem Tartrate [Ambien] 5 mg PO QHS 07/10/19 Primary Care Physician: Joaquim Burks DO [Primary Care Provider] - Please follow up with your Primary Care Physician in: within 1-2 weeks. Test Results: Test results from this visit will be discussed in further detail at your follow-up appointment, if applicable. Proposed Discharge Date: 08/28/19
--- NOTE | 2019-08-28 09:46 | DS.PCM_ITS ---
Discharge Date and Diagnosis Date of Admission: 08/27/19 Date of Discharge: 08/28/19 - Primary Discharge Diagnosis Active and Suspected Problems Chest pain (Acute), likely musculoskeletal - Secondary Discharge Diagnosis Chronic Problems Morbid obesity (Chronic) SHARMIN (obstructive sleep apnea) (Chronic) Former tobacco use (Chronic) Tracheostomy dependence (Chronic) Anxiety (Chronic) GERD (gastroesophageal reflux disease) (Chronic) COPD (chronic obstructive pulmonary disease) (Chronic) Morbid obesity (Chronic) Anxiety and depression (Chronic) Status post tracheostomy (Chronic) Depression (Chronic) Type II diabetes mellitus (Chronic) Hyperlipidemia (Chronic) Hypertension (Chronic) Hospital Course and Treatment Imaging Results: Clinical Impression(s) from Imaging Studies Chest X-Ray 08/27/19 16:36 IMPRESSION: No acute pulmonary process Electronically Signed: Calixto Cade MD at 17:04 EST , Service support , None Operations: None Procedures: None Summary of Care Provided: The patient is a 54 year old F with multiple comorbidities including hypertension, type II DM, anxiety/depression who comes in with complaints of chest pain that started a few days prior to admission. Chest pain was not related with activity, did not improve with rest. Patient had noted a hepato- her diet recently and she is really been coping well with it. Physical exam on admission showed her chest pain was reproducible. She had a stress test done 2 months prior that was negative. Her EKG showed no acute ST changes. Troponins were negative. Patient's chest pain was reproducible again the next day. Is a history of hiatal hernia also. She was asked to follow-up with her primary care doctor. She was asked to take some Tylenol as needed for chest wall discomfort. Patient was asked to follow-up with her primary care doctor for changes in her antidepressant. Subjective: On the day of discharge, patient was seen and examined. Denied any new complaints. - Physical Exam Vitals/I&O's: Vital Signs Temp Pulse Resp BP Pulse Ox 98.6 F 66 16 140/76 H 95 08/28/19 09:28 08/28/19 09:28 08/28/19 09:28 08/28/19 09:28 08/28/19 09:28 Oxygen Delivery Method Room Air Weight: 257.8 kg Body Mass Index (BMI) 94.6 Finger Stick Blood Glucose 382 Intake and Output for Last 24 Hours 08/26/19 08/27/19 08/28/19 23:59 23:59 23:59 Intake Total 435 / 435 100 / 100 Balance 435 / 435 100 / 100 General: Alert, Oriented x3, Cooperative, No apparent distress HEENT: Atraumatic, PERRLA, EOMI, Normocephalic Neck: Supple, No JVD, Negative Carotid Bruits Lungs: Clear to auscultation, Normal air movement, - - Reproducible xiphisternal chest wall tenderness Cardiovascular: Regular rate, Regular Rhythm, Normal S1, Normal S2, No murmurs Abdomen: Bowel Sounds Present, Soft, Non Tender, Non-Distended, No Hepato- splenomegaly Extremities: No edema Skin: No rashes, No breakdown Musculoskeletal: No Tenderness to Palpation of Joints or Extremities Lymphatic: No Cervical, Supraclavicular, or Inguinal Adenopathy Neurological: Cranial nerves II-XII grossly intact, Neuro grossly intact Psych/Mental Status: Normal Affect, Appropriate Laboratory Results 08/27/19 16:50: WBC 8.7, RBC 4.65, Hgb 14.4, Hct 41.6, MCV 89.5, MCH 31.0, MCHC 34.6, RDW Std Deviation 42.2, RDW Coeff of Cecil 12.9, Plt Count 221, MPV 11.2, Immature Gran % (Auto) 0.900, Neut % (Auto) 57.2, Lymph % (Auto) 32.0, [place] % (Auto) 7.3, Eos % (Auto) 1.6, Baso % (Auto) 1.0, Absolute Neuts (auto) 5.0, Absolute Lymphs (auto) 2.80, Nucleated RBC % 0 08/27/19 16:50: Sodium 136, Potassium 4.0, Chloride 106, Carbon Dioxide 22.0, Anion Gap 8, BUN 12, Creatinine 1.01, Estim Creat Clear Calc 57.30, Est GFR (MDRD) Af Amer 73, Est GFR (MDRD) Non-Af 61, BUN/Creatinine Ratio 11.9, Glucose 192 H, Calcium 8.6, Total Bilirubin 0.50, Direct Bilirubin < 0.05, AST 23, ALT 28, Alkaline Phosphatase 121 H, Troponin I < 0.015, Total Protein 6.8, Albumin 3.3, Globulin 3.5, Lipase 217 08/27/19 20:35: Troponin I < 0.015 08/27/19 20:54: POC Glucose 176 H 08/27/19 22:36: Troponin I < 0.015 08/28/19 06:30: WBC 6.1, RBC 4.45, Hgb 13.4, Hct 40.2, MCV 90.3, MCH 30.1, MCHC 33.3, RDW Std Deviation 42.8, RDW Coeff of Cecil 13.0, Plt Count 172, MPV 11.0, Immature Gran % (Auto) 0.300, Neut % (Auto) 41.3 L, Lymph % (Auto) 46.6 H, [place] % (Auto) 8.2, Eos % (Auto) 2.6, Baso % (Auto) 1.0, Absolute Neuts (auto) 2.5, Absolute Lymphs (auto) 2.83, Nucleated RBC % 0 08/28/19 06:30: Sodium 137, Potassium 3.9, Chloride 104, Carbon Dioxide 27.0, Anion Gap 6, BUN 19 H, Creatinine 1.03 H, Estim Creat Clear Calc 56.19, Est GFR (MDRD) Af Amer 72, Est GFR (MDRD) Non-Af 59 L, BUN/Creatinine Ratio 18.4, Glucose 183 H, Calcium 8.5 08/28/19 06:37: POC Glucose 208 H Current Medications Albuterol Sulfate (Ventolin Aerosols) 2.5 mg INHALATION Q4H PRN PRN Reason: SOB/WHEEZING Atenolol (Tenormin (Beta Jovanni)) 100 mg PO DAILY REPLACED BY [facility] Buspirone HCl (Buspar) 15 mg PO TID REPLACED BY [facility] Last Admin: 08/28/19 06:37 Dose: 15 mg Documented by: Citalopram Hydrobromide (Celexa) 40 mg PO QHS REPLACED BY [facility] Last Admin: 08/27/19 21:07 Dose: 40 mg Documented by: Diphenhydramine HCl (Benadryl) 25 mg PO DAILY PRN PRN PRN Reason: ITCHING Famotidine (Pepcid) 20 mg PO QHS REPLACED BY [facility] Last Admin: 08/27/19 21:07 Dose: 20 mg Documented by: Fluticasone Propionate (Flonase Nasal [place]) 1 spray NASAL DAILY PRN PRN PRN Reason: ALLERGIES Glucagon () 1 mg IM .X1 PRN PRN Reason: Hypoglycemia Dextrose (Dextrose 10%-Water) 250 mls @ 999 mls/hr IV .Q16M PRN; Protocol PRN Reason: HYPOGLYCEMIA Insulin Glargine (Lantus ([facility])) 10 units SC QHS REPLACED BY [facility] Last Admin: 08/27/19 21:07 Dose: 10 units Documented by: Insulin Human Lispro (Humalog Kwikpen ([facility])) [facility]; Protocol Last Admin: 08/28/19 06:37 Dose: 2 units Documented by: Ketorolac Tromethamine (Toradol ([facility])) 15 mg IV Q6H PRN PRN PRN Reason: pain -04/05 Stop: 09/02/19 01:52 Last Admin: 08/28/19 02:10 Dose: 15 mg Documented by: Loratadine (Claritin) 10 mg PO DAILY REPLACED BY [facility] Last Admin: 08/28/19 09:30 Dose: 10 mg Documented by: Melatonin (Melatonin) 3 mg PO QHS PRN PRN PRN Reason: INSOMNIA Nutritional Formula (Lactose Free) (Glucerna Shake) 120 ml PO TIDCM REPLACED BY [facility] Last Admin: 08/28/19 08:45 Dose: Not Given Documented by: Pantoprazole Sodium (Protonix) 40 mg PO DAILY REPLACED BY [facility] Last Admin: 08/28/19 09:31 Dose: 40 mg Documented by: Sodium Chloride () 10 - 40 ml IV UD PRN PRN Reason: SALINE FLUSH Spironolactone (Aldactone) 50 mg PO DAILY REPLACED BY [facility] Zolpidem Tartrate (Ambien (Generic)) 5 mg PO QHS REPLACED BY [facility] Last Admin: 08/27/19 21:12 Dose: 5 mg Documented by: Discharge Diet: No Restrictions Discharge Activity: Return to Normal Activity Home Medications: Medications to take at Discharge Loratadine [Claritin] 10 mg PO DAILY 12/16/16 Glimepiride [Amaryl] 4 mg PO BID 05/25/17 Fluticasone 0.05% [Flonase Nasal [place]] 1 spray NASAL DAILY PRN PRN 07/06/18 Lansoprazole 30 mg PO DAILY 07/06/18 Citalopram [Celexa] 40 mg PO QHS 01/01/19 Buspirone HCl 15 mg PO TID 02/20/19 Ranitidine HCl 300 mg PO QHS 02/20/19 Spironolactone 50 mg PO DAILY 02/20/19 Albuterol IH (ProAir) [Proair Hfa] 2 puff INHALATION Q4H PRN PRN 03/16/19 Albuterol Sulfate 2.5 mg IH Q4H PRN PRN 03/16/19 Atenolol [Tenormin (beta jovanni)] 100 mg PO DAILY 07/10/19 Diphenhydramine HCl [Benadryl Allergy] 25 mg PO DAILY PRN PRN 07/10/19 Insulin Glargine [Lantus SoloStar Pen] 10 units SUBCUT QHS 07/10/19 Zolpidem Tartrate [Ambien] 5 mg PO QHS 07/10/19 Primary Care Physician: Joaquim Burks DO [Primary Care Provider] - Please follow up with your Primary Care Physician in: within 1-2 weeks. Patient Instructions: What Is a Hiatal Hernia? Disposition: Home Minutes spent on discharge:: 35 Patient Condition:: Stable Medical Necessity - Tobacco Use Smoking Status: Former smoker Tobacco Use: Cigarettes Meaningful Use Info Meaningful Use Diagnoses (Choose all that apply): None applicable Code Visit OBSV E&M: 25003 Observation care discharge
[2019-08-28] MEDS: Atenolol 100 MG Tablet PO (10:18)
[2019-08-28] MEDS: Spironolactone 50 MG Tablet PO (10:18)
--- NOTE | 2019-08-28 10:34 | PHA.DC.MR ---
Pharmacy Service has performed discharge medication reconciliation for this patient. No new medications at time of discharge. Medications reviewed are from previously reported home medications. The patient's discharge medication list was reviewed for discrepancies and discrepancies were resolved. Home Medications Loratadine [Claritin] 10 mg PO DAILY 12/16/16 Glimepiride [Amaryl] 4 mg PO BID 05/25/17 Fluticasone 0.05% [Flonase Nasal [place]] 1 spray NASAL DAILY PRN PRN 07/06/18 Lansoprazole 30 mg PO DAILY 07/06/18 Citalopram [Celexa] 40 mg PO QHS 01/01/19 Buspirone HCl 15 mg PO TID 02/20/19 Ranitidine HCl 300 mg PO QHS 02/20/19 Spironolactone 50 mg PO DAILY 02/20/19 Albuterol IH (ProAir) [Proair Hfa] 2 puff INHALATION Q4H PRN PRN 03/16/19 Albuterol Sulfate 2.5 mg IH Q4H PRN PRN 03/16/19 Atenolol [Tenormin (beta haley)] 100 mg PO DAILY 07/10/19 Diphenhydramine HCl [Benadryl Allergy] 25 mg PO DAILY PRN PRN 07/10/19 Insulin Glargine [Lantus SoloStar Pen] 10 units SUBCUT QHS 07/10/19 Zolpidem Tartrate [Ambien] 5 mg PO QHS 07/10/19
== END 2019-08-28 09:39 | disposition home or self-care (01) ==
LOC: ED 18:20 → PCU 19:52
PROVIDERS: Admitting Provider Family Medicine; Emergency Provider Emergency Medicine; PCP Student in an Organized Health Care Education/Training Program; Visit Provider Internal Medicine
DX: R07.89 Other chest pain (principal); H53.8 Other visual disturbances; J44.9 Chronic obstructive pulmonary disease, unspecified; K21.9 Gastro-esophageal reflux disease without esophagitis; E78.5 Hyperlipidemia, unspecified; I10 Essential (primary) hypertension; F41.9 Anxiety disorder, unspecified; F32.9 Major depressive disorder, single episode, unspecified; E11.9 Type 2 diabetes mellitus without complications; G47.33 Obstructive sleep apnea (adult) (pediatric); E66.01 Morbid (severe) obesity due to excess calories; R94.31 Abnormal electrocardiogram [ECG] [EKG]; K44.9 Diaphragmatic hernia without obstruction or gangrene; Z93.0 Tracheostomy status; Z79.899 Other long term (current) drug therapy; Z79.4 Long term (current) use of insulin; Z87.891 Personal history of nicotine dependence; Z68.41 Body mass index [BMI] 40.0-44.9, adult
CPT/HCPCS: 36415; 71045; 80048; 80076; 82962; 83690; 84484; 85025; 93005; 96374; 96375; 96376; 99218; 99285; J7030; A4216; G0378; J2405

== ENCOUNTER 2019-09-13 18:23 | Emergency (ER) | payer MEDICARE, MEDICAID, SELFPAY ==
[2019-09-13 18:24] VITALS: BP 145/89; PULSE 96; RESP 18; TEMP 36.7; O2SAT 96; BMI 42.7
--- NOTE | 2019-09-13 18:51 | ED.DCSUM_ITS ---
- ER Visit Summary Date of Service: 09/13/19 Chief Complaint: Rash History of Present Illness: The patient is a 54 F with a rash to her bilateral arms. It is itchy. It has been there since 5 months ago. She has tried antihistamines, steroids, Elimite. Nothing seems to help. She had biopsy that showed this was a drug-related rash. Her medications were changed. She has a continued rash. She was referred to allergy. She is unable to get an appointment and it is too far for her to travel to [place]. Patient denies any other issues. Physical Examination: Excoriated rash with dry skin to her arms with small punctate scabs. Otherwise exam unremarkable. Test Results: None performed Emergency Department Course and Treatment: Patient had a biopsy that, according to her showed this was drug related. She was referred to allergy. She is unable to follow-up. I advised her that I have no answers for her today. I cannot perform any diagnostic testing for this. She tried all the standard treatments. She had her house sprayed for bugs. She does not want steroids because they cause hyperglycemia. She did not want to try a different antihistamine or topical medicine. I offered to refer her to dermatology and she declined. She left prior to official discharge. Treatment Plan: As above Disposition: Discharge Impression: Rash This note was generated with [employer] dictation software. It may contain incorrect words, spelling, and punctuation that were not noted in review of the chart prior to signing ED Disposition - Plan for ED Patient: Referrals: Joaquim Burks DO [Primary Care Provider] -
[2019-09-13 19:06] VITALS: RESP 16
== END 2019-09-13 19:06 | disposition home or self-care (01) ==
LOC: ED 18:40
PROVIDERS: Emergency Provider Emergency Medicine; PCP Student in an Organized Health Care Education/Training Program
DX: R21 Rash and other nonspecific skin eruption (principal); I10 Essential (primary) hypertension; J44.9 Chronic obstructive pulmonary disease, unspecified; K21.9 Gastro-esophageal reflux disease without esophagitis; E11.9 Type 2 diabetes mellitus without complications; Z79.4 Long term (current) use of insulin; Z79.84 Long term (current) use of oral hypoglycemic drugs; Z79.899 Other long term (current) drug therapy; Z72.0 Tobacco use
CPT/HCPCS: 99282

== ENCOUNTER 2019-09-13 23:50 | Emergency (ER) | payer MEDICARE, MEDICAID, SELFPAY ==
[2019-09-13 18:24] VITALS: BMI 42.7
[2019-09-13 23:55] VITALS: BP 123/107; PULSE 88; RESP 18; TEMP 36.8; O2SAT 95; BMI 36.0
[2019-09-14] VITALS (11 sets, daily range): BP systolic 115–159; BP diastolic 78–95; PULSE 78–103; RESP 16–22; O2SAT 95–97
--- NOTE | 2019-09-14 00:28 | ED.VIS.PSYCH ---
History of Present Illness Chief Complaint: Depression Informant: Patient Onset: Month(s) Context: Gradual Onset Conflict: - - this rash that has been there since April Timing: Continuous Current Severity: Moderate Maximum Severity: Moderate Worsened by: - - itching, per pt Associated Symptoms: Depressed. Negative for: Suicidal Thoughts Narrative: Patient called crisis. Okay because she was depressed, however tells me that she use her nondominant hand to use a clean hunting knife and cut her right forearm because that is where this rash is itching the most, the rash has been there for several months. She has seen her doctor for it, she has been put on steroids a couple different times and using steroid cream, none of it helped the rash at all and the oral steroids have made her blood sugar go up, she is not on steroids now, and she is frustrated because nothing is helped. She is tried permethrin topically, she had no temporary relief and even tried it a second time with no relief that time either. No one else in the house has this. It is mostly on her extremities and a little on her neck and back. She has not seen a manager clinical pharmacy. She denies any systemic symptoms or coexist with this. Her last tetanus was unknown. She denies being suicidal several times, denies cutting herself and attempts to harm herself. Initially she just tells me that she was doing this to help stop the itching, knowing that it was not the smartest thing to do. However, before the end of the exam/interview, she states she is not sure if she will be safe going home and going to sleep tonight. Then see suggest that she is suicidal and may have suicidal thoughts, but does not want to admit it because that she does not want to be admitted to a psychiatric hospital. Then she does state that she wants to talk to a counselor. Further, police adelita slipped her here to the emergency room. She apparently told the counselor over the phone that since her brother she has been battling depression and suicidal thoughts. She said to the counselor who knows what will happen after her family goes to sleep. She also said that she wanted to go to [facility] to be with her brother, to the counselor. - Past Medical History (1) Acute pancreatitis Status: Resolved (2) Anxiety and depression Status: Chronic (3) COPD (chronic obstructive pulmonary disease) Status: Chronic (4) GERD (gastroesophageal reflux disease) Status: Chronic (5) Hyperlipidemia Status: Chronic (6) Hypertension Status: Chronic (7) Morbid obesity Status: Chronic (8) SHARMIN (obstructive sleep apnea) Status: Chronic (9) Status post tracheostomy Status: Chronic (10) Type II diabetes mellitus Status: Chronic (11) Hiatal hernia Status: Chronic Past Medical History - Allergies and Home Meds Allergies/Adverse Reactions: Allergies bupropion [From Wellbutrin] Allergy (Verified 09/13/19 18:26) Angioedema lisinopril Allergy (Verified 09/13/19 18:26) Angioedema sulfamethoxazole [From Bactrim] Allergy (Verified 09/13/19 18:26) Rash trimethoprim [From Bactrim] Allergy (Verified 09/13/19 18:26) Rash acetaminophen [From Vicodin] Adverse Reaction (Verified 09/13/19 18:26) Nausea/Vom/Diarrhea aspirin Adverse Reaction (Verified 09/13/19 18:26) Nausea/Vom/Diarrhea hydrocodone [From Vicodin] Adverse Reaction (Verified 09/13/19 18:26) Nausea/Vom/Diarrhea Primary Care Physician: Joaquim Burks DO [Primary Care Provider] - Surgical History: - - Tracheostomy, cholecystectomy, bilateral tubal ligation, NovaSure, bladder suspension surgery. Lives: With Family Smoking Status: Former smoker - Family History Maternal Family History: Reports: Diabetes, High Cholesterol, Heart Disease, Hypertension Paternal Family History: Reports: Diabetes, High Cholesterol, Heart Disease, Hypertension Review of Systems General: Denies: Chills, Fever, Sweats Eyes: Denies: Visual changes - bilaterally, Diplopia ENT: Denies: Rhinorrhea, Sore throat Cardiovascular: Denies: Chest pain, Palpitations Respiratory: Denies: Dyspnea, Cough, Dyspnea on exertion Gastrointestinal: Denies: Abdominal pain, Nausea, Vomiting, Diarrhea, Melena, Hematochezia Genitourinary: Denies: Dysuria, Hematuria, Frequency Musculoskeletal: Reports: Extremity Pain - from cutting. Denies: Back pain Skin: Reports: Rash - pruritic, Wounds. Denies: Abscess Neurological: Denies: Headache, Weakness, Numbness Psych: Reports: Depression, Anxiety, Suicidal thoughts Physical Exam Vital Signs/Narrative: Vital Signs Temp Pulse Resp BP Pulse Ox 09/14/19 00:02 78 18 142/95 H 95 03/19/20 23:55 98.3 F 88 18 123/107 H 95 Inital Vital Signs reviewed: Yes General: Well nourished, Well developed, Obese, - - NAD Head: Normocephalic, Atraumatic Eyes: Perrl, EOMI ENT: Moist mucous membranes, No rhinorrhea Neck: Supple, Nontender Cardiovascular: Regular rate, Regular rhythm, No murmurs Respiratory: No distress, CTA bilaterally, Chest nontender Abdomen: Soft, Nontender, Nondistended, Normal bowel sounds Back: Nontender, Normal Inspection Extremities: Nontender, No Edema Skin: Normal color, Rash - dry, papular, nontender, nonpetechial rash mostly on extensor surfaces of extremities, many areas excoriated. no purupura., Trauma - superficial linear clean, abrasions right dorsal mid-forearm, no deep lacerations Neurological: Alert, Oriented x3, Cranial nerves II-XII grossly intact, Normal Strength, Normal Sensation Psych: Normal Speech Pattern, Logical sequential goal directed thoughts, Normal Appearance, Depressed, Restricted Affect, Suicidal thoughts - possibly; limited eval. see HPI.. Negative for: Homicidal thoughts Diagnostic/Tx/Re-eval Laboratory Results 09/14/19 09/14/19 09/14/19 00:45 00:55 00:55 WBC 9.3 RBC 5.15 Hgb 15.4 H Hct 45.7 MCV 88.7 MCH 29.9 MCHC 33.7 RDW Std Deviation 42.5 RDW Coeff of Cecil 13.0 Plt Count 222 MPV 11.5 Immature Gran % (Auto) 0.600 Neut % (Auto) 59.9 Lymph % (Auto) 28.6 [place] % (Auto) 8.1 Eos % (Auto) 2.0 Baso % (Auto) 0.8 Absolute Neuts (auto) 5.6 Absolute Lymphs (auto) 2.65 Nucleated RBC % 0 Sodium Potassium Chloride Carbon Dioxide Anion Gap BUN Creatinine Estim Creat Clear Calc Est GFR (MDRD) Af Amer Est GFR (MDRD) Non-Af BUN/Creatinine Ratio Glucose Calcium Total Bilirubin AST ALT Alkaline Phosphatase Troponin I Total Protein Albumin Globulin Albumin/Globulin Ratio Urine Opiates Screen NEGATIVE Urine Methadone Screen NEGATIVE Ur Barbiturates Screen NEGATIVE Ur Phencyclidine Scrn NEGATIVE Ur Amphetamines Screen NEGATIVE U Methamphetamin-MDMA NEGATIVE U Benzodiazepines Scrn NEGATIVE Urine Cocaine Screen NEGATIVE U Cannabinoids Screen POSITIVE H Ur Drug Screen Comment Ethyl Alcohol < 3.0 09/14/19 09/14/19 00:55 00:55 WBC RBC Hgb Hct MCV MCH MCHC RDW Std Deviation RDW Coeff of [place] Plt Count MPV Immature Gran % (Auto) Neut % (Auto) Lymph % (Auto) [place] % (Auto) Eos % (Auto) Baso % (Auto) Absolute Neuts (auto) Absolute Lymphs (auto) Nucleated RBC % Sodium 134 L Potassium 3.8 Chloride 103 Carbon Dioxide 21.0 Anion Gap 10 BUN 14 Creatinine 1.13 H Estim Creat Clear Calc 51.21 Est GFR (MDRD) Af Amer 64 Est GFR (MDRD) Non-Af 53 L BUN/Creatinine Ratio 12.4 Glucose 198 H Calcium 9.1 Total Bilirubin 0.40 AST 30 ALT 34 Alkaline Phosphatase 119 H Troponin I < 0.015 Total Protein 7.4 Albumin 3.8 Globulin 3.6 Albumin/Globulin Ratio 1.1 Urine Opiates Screen Urine Methadone Screen Ur Barbiturates Screen Ur Phencyclidine Scrn Ur Amphetamines Screen U Methamphetamin-MDMA U Benzodiazepines Scrn Urine Cocaine Screen U Cannabinoids Screen Ur Drug Screen Comment Ethyl Alcohol - Rhythm Strip Rhythm Strip: Sinus Rhythm Rate: 85 Ectopy: None - EKG Initial EKG Interpretation: Sinus Rhythm, No Acute Injury Pattern Work-up is unremarkable except for marijuana as above. She developed some chest discomfort, she stated that it was substernal and felt like her hiatal hernia, burning. We did an EKG and ran a troponin, they show nothing acute. She was given a GI cocktail and felt better. I had crisis see her out of concern. sugar mill worker mention she talked her on the phone prior to her coming to the ER, and she mentions some of the exact same thing to her on the phone and she was concerned. She thinks she should be admitted to mental health facility for further evaluation, and I not in disagreement. Patient is very resistant once she is told she is pink slipped. She tries to leave. Police were called, they settled her down and kept her in her room, verbally. She was not combative physically, but continued to yell and refused to stay, saying that as soon as I get out I am going to kill myself. She is asking police to arrest her and take her to group home, which they have no reason to do. She continues to be agitated, so for that reason she was administered Geodon. ED Disposition - Plan for ED Patient: Disposition: Psychiatric Hospital or Unit Diagnosis: Suicidal ideation, Abrasion of right forearm, Immunization, tetanus-diphtheria Referrals: Joaquim Burks DO [Primary Care Provider] -
--- NOTE | 2019-09-14 00:45 | ED.RN ---
when triaging pt and doing secondary assessment pt denied suicidal ideation. upon re-entry into room to draw blood pt states she doesn't know what she would do to herself if she were to go home. pt states she thinks her meds are needing an adjustment and she doesn't know what is going on in her head right now. this RN asked if she was suicidal and she said she is on and off
[2019-09-14] MEDS: Diphth,Pertuss(Acell),Tet Vac 0.5 ML Vial IM (01:02)
[2019-09-14 01:18] LABS: Amphetamine Urine VISTA NEGATIVE (<1000 ng/mL); Barbiturate Urine VISTA NEGATIVE (< 200 ng/mL); Benzodiazepine Urine VISTA NEGATIVE (< 200 ng/mL); Cocaine Urine VISTA NEGATIVE (< 300 ng/mL); Ecstacy Urine VISTA NEGATIVE (< 500 ng/mL); Methadone Urine VISTA NEGATIVE (< 300 ng/mL); PCP Urine VISTA NEGATIVE (< 25 ng/mL); THC Urine VISTA POSITIVE (< 50 ng/mL); Vista UDS pH Range 5
[2019-09-14 01:25] LABS: Alcohol, Blood (Medical)-Serum < 3.0 mg/dL
--- NOTE | 2019-09-14 01:31 | ED.RN ---
[facility] CONTACTED TO SEE THE PT
--- NOTE | 2019-09-14 01:55 | EKG12_ITS ---
Test Reason : CP Blood Pressure : / mmHG Vent. Rate : 085 BPM Atrial Rate : 085 BPM P-R Int : 152 ms QRS Dur : 080 ms QT Int : 376 ms P-R-T Axes : 038 -22 035 degrees QTc Int : 447 ms Normal sinus rhythm Inferior infarct (cited on or before 27-AUG-2019) Abnormal ECG Confirmed by GALINDO DUNHAM ([id number]), department editor ELFEGO CHAVEZ ([id number]) on 09/17/2019 11:02:13 AM Referred By: LB Confirmed By:GALINDO DUNHAM
[2019-09-14 02:38] LABS: Absolute Lymphocyte Count 2.65 X10^3/uL (0.83-4.51); Absolute Neutrophil Count 5.6 X10^3/uL (2.0-7.7); Basophil# 0.07 X10^3/uL; Basophil% 0.8 % (0-1); Eosinophil# 0.19 X10^3/uL; Hematocrit 45.7 % (37-47); Hemoglobin 15.4 g/dL (12.0-15.0); Lymphocyte # 2.65 X10^3/ul (4.0); Lymphocyte % 28.6 % (19-41); Mean Corp Hgb Conc 33.7 g/dL (32-36); Mean Corpuscular Hgb 29.9 pg (27.0-32.0); Mean Corpuscular Volume 88.7 fL (81-99); Mean Platelet Vol. 11.5 fl (6.2-12.0); Monocyte# 0.75 X10^3/uL; Monocyte% 8.1 % (0-10); NRBC Flagged by Analyzer 0 % (0-5); Neutrophil # 5.55 X10^3/uL (2.7-7.7); Neutrophil % 59.9 % (47-70); Platelet Count 222 K/mm3 (150-450); RBC Distribution Width SD 42.5 fl (35.1-43.9); Red Blood Count 5.15 M/mm3 (4.2-5.4); White Blood Count 9.3 K/mm3 (4.4-11.0)
[2019-09-14 02:50] LABS: ALB/GLOB Ratio 1.1 RATIO (0.9-2.4); AST(SGOT) 30 U/L (15-37); Alanine Aminotransfer ALT/SGPT 34 U/L (13-56); Albumin, Serum 3.8 g/dL (3.2-5.0); Alkaline Phosphatase 119 U/L (45-117); Anion Gap 10 (5-15); BUN 14 mg/dL (7-18); BUN/Creat Ratio 12.4 RATIO (10-20); Calcium,Total 9.1 mg/dL (8.5-10.1); Chloride 103 mmol/L (98-107); Creatinine, Serum 1.13 mg/dL (0.55-1.02); EST Glomerular Filtration Rate 53 mL/min (>60); Est Glom Filt Rate - Afr Amer 64 mL/min (>60); Estimated Creatinine Clearance 51.21 ml/min; Globulin 3.6 g/dL (2.2-4.2); Glucose 198 mg/dL (74-106); Potassium 3.8 mmol/L (3.5-5.1); Protein, Total 7.4 g/dL (6.4-8.2); Sodium Level 134 mmol/L (136-145)
[2019-09-14] MEDS: Ziprasidone IM 20 MG/ML VIAL IM (04:03)
--- NOTE | 2019-09-14 04:03 | ED.RN ---
THE [facility] STAFF INFORMED THIS NURSE THAT THE PT IS REFUSING TO BE TRANSFERRED AND IS STARTING TO YELL AND THREATEN STAFF. THIS NURSE IN THE ROOM TO ATTEMPT TO CALM THE PT DOWN. PT CONTINUES TO YELL AND GETTING MORE VERBALLY AGGRESSIVE TOWARD STAFF. PT THREATENING STAFF. PT STATES JUST TAKE ME TO RETIREMENT. THE PT STATES IF I WAS GOING TO KILL MYSELF I WOULD HANG MYSELF WITH THIS SHEET YOU GAVE ME TO COVER UP. PT GOT UP OUT OF BED AND STARTED WALKING DOWN THE HALLWAY. THIS NURSE ATTEMPTING TO CONVINCE THE PT TO RETURN TO THE ROOM. THIS NURSE INFORMED THE STAFF TO CONTACT ONTARIO . PT CONTINUES TO WALK DOWN THE HALLWAY. PT ENCOURAGED TO JUST GO TO THE BATHROOM WHILE SHE IS UP IN THE HALLWAY. PT DID AGREE TO THIS SUGGESTION. AFTER PT FINISHED IN THE BATHROOM, PT STARTED WALKING IN THE OPPOSITE DIRECTION BUT TOWARD THE ROOM SHE WAS IN. PT STATES JUST TAKE ME TO RETIREMENT. I AM NOT LEAVING HERE. YOU CAN'T MAKE ME. 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 THIS NURSE CONTINUED TO SPEAK WITH THE PT AND ENCOURAGE HER TO RETURN TO THE ROOM. THE PT DID FINALLY RETURN TO THE ROOM. THIS NRUSE OFFERED SEVERAL TIMES TO SPEAK WITH THE PHYSICIAN ABOUT GETTING SOME MEDICATION TO HELP HER RELAX AND REST. PT STATES FUCK YOU. I'M LEAVING HERE. YOU CAN'T STOP ME. AT THAT TIME, THREE POLICE OFFICERS FROM [facility] ENTERED THE ER. POLICE OFFICERS IN THE ROOM ATTEMPTING TO TALK WITH THE PT AND CALM HER DOWN. PT STATES FUCK YOU BASTARDS. WHEN I GET OUT OF THE FACILITY I AM GOING TO KILL MYSELF AND I AM GOING TO MAKE SURE YOU READ ABOUT IT. THE OFFICERS REMAIN IN THE ROOM ATTEMPTING TO CALM THE PT. PT STATES JUST TAKE ME TO RETIREMENT. I'M GOING TO KILL MYSELF. JUST TAKE ME TO RETIREMENT. WHILE THE POLICE OFFICERS WERE ATTEMPTING TO HELP CALM THE PT, THIS NURSE SPOKE WITH DR SERNA ABOUT THE CURRENT ISSUES WITH THE PT. ORDER OBTAINED FOR GEODON 20MG IM. POLICE OFFICERS INFORMED THAT I WOULD BE TALKING TO THE PT ABOUT RECEIVING THE MEDICATION. THIS NURSE ENTERED THE ROOM AND EXPLAINED TO THE PT THE MEDICATION THAT IS ORDERED AND THE REASON FOR THE MEDICATION. THIS NURSE SPOKE WITH THE PT THAT THE MEDICATION GOES INTO THE MUSCLE. THIS NURSE ASKED THE PT IF SHE HAD A PREFERENCE OF WHICH ARM SHE RECEIVED THE INJECT. PT STATES I DON'T FUCKING CARE. I'M GOING TO KILL MYSELF WHEN I GET OUT AND THIS IS ALL YOUR FAULT. PT GIVEN INJECTION IN LEFT ARM. THE SHEET THAT WAS COVERING THE PT WAS REMOVED FROM THE ROOM. PT IS NOT YELLING MUCH BUT CONTINUES TO STATES I'M GOING TO KILL MYSELF AND THIS IS ALL YOUR FAULT. DO YOU THINK TAKING ME AWAY FROM MY FAMILY IS GOING TO HELP. NO, IT JUST MAKES ME WANT TO KILL MYSELF. THIS NURSE LEFT THE ROOM IN HOPES PT WOULD CALM. SITTER REMAINS IN THE DOORWAY. [place] [employer] LEFT THE DEPARTMENT.
[2019-09-14] MEDS: Mag Hydrox/Al Hydrox/Simeth 30 ML UDC PO (04:41)
--- NOTE | 2019-09-14 05:28 | ED.RN ---
PER PT REQUEST, PT STEP-DAUGHTER NOTIFIED OF PLAN OF CARE AND TRANSFER TO [facility] IN [place]
== END 2019-09-14 11:41 ==
PROVIDERS: Emergency Provider Emergency Medicine; PCP Student in an Organized Health Care Education/Training Program
DX: R45.851 Suicidal ideations (principal); S50.811A Abrasion of right forearm, initial encounter; R21 Rash and other nonspecific skin eruption; Z23 Encounter for immunization; X78.1XXA Intentional self-harm by knife, initial encounter; Y93.9 Activity, unspecified; Y92.9 Unspecified place or not applicable; I10 Essential (primary) hypertension; F32.9 Major depressive disorder, single episode, unspecified; F41.9 Anxiety disorder, unspecified; J44.9 Chronic obstructive pulmonary disease, unspecified; K21.9 Gastro-esophageal reflux disease without esophagitis; E66.01 Morbid (severe) obesity due to excess calories; E11.9 Type 2 diabetes mellitus without complications; K44.9 Diaphragmatic hernia without obstruction or gangrene; G47.33 Obstructive sleep apnea (adult) (pediatric); Z87.19 Personal history of other diseases of the digestive system; Z79.4 Long term (current) use of insulin; Z79.84 Long term (current) use of oral hypoglycemic drugs; Z79.899 Other long term (current) drug therapy; F12.90 Cannabis use, unspecified, uncomplicated; Z87.891 Personal history of nicotine dependence
CPT/HCPCS: 80053; 80307; 80320; 84484; 85025; 90715; 93005; 96372; 99282; 99285; A4216; G0480; J3486

== ENCOUNTER 2019-11-08 14:34 | Emergency (ER) | payer MEDICARE, MEDICAID, SELFPAY ==
[2019-11-08] VITALS (7 sets, daily range): BP systolic 165–180; BP diastolic 75–108; PULSE 61–107; RESP 15–22; TEMP 36.7–37.2; O2SAT 94–99; BMI 41.5
--- NOTE | 2019-11-08 15:02 | ED.VISSUMM ---
- ER Visit Summary Date of Service: 11/08/19 Chief Complaint: Shortness of breath, cough History of Present Illness: The patient is a 54 F who presents with shortness of breath and cough that is been getting worse over the past 3 days. Patient states her breathing is worse with any movement. Patient states she is coughing up some white sputum. Patient admits to some mild rhinorrhea. Patient states she does have some pain in her chest with deep breathing. Patient describes it as a dull pain. Patient states it is diffuse across her chest. Patient also admits to a headache. Patient admits to subjective chills. Patient also admits to pain into her back. Patient denies any sick contacts. Patient denies any recent travel. Physical Examination: Vital signs are stable. Patient is afebrile. Patient is in no acute distress. Oral mucosa is pink and moist. Neck is supple. Trachea is midline. There is no JVD. Heart was regular rate and rhythm. Lungs are clear and equal bilaterally. Abdomen is soft. Bowel sounds are normal. There is some mild right upper quadrant tenderness. There is no rebound or guarding noted. Cranial nerves II through XII are intact. There are no focal motor or sensory deficits noted. Extremities are intact. There is no calf tenderness or edema. Skin is warm dry. There is a dry macular rash noted over the upper extremities bilaterally. There are no vesicles or pustules noted. Test Results: CBC and comprehensive metabolic profile were within normal limits. Influenza swab was obtained and was negative. RSV swab was negative. Rapid strep was obtained and was negative. Portable chest x-ray was obtained. There is no acute cardiopulmonary process. EKG showed a normal sinus rhythm with a rate of 64. There are no acute ST or T wave changes. Emergency Department Course and Treatment: Patient was ordered Tylenol but she refused. Patient was given an injection of morphine here. Patient was instructed to follow-up with her primary care physician in 5 to 7 days. Patient understood and was agreeable with the plan. All questions were answered. Disposition: Discharge home Impression: 1. Dyspnea 2. Viral illness This note was generated with [employer] software. It may contain incorrect words, spelling, and punctuation that were not noted in review of the chart prior to signing ED Disposition - Plan for ED Patient: Disposition: Home or Assisted Living Diagnosis: Dyspnea, Viral illness Instructions: ED Dyspnea, ED Viral Syndrome Referrals: Joaquim Burks DO [Primary Care Provider] - 5-7 Days
--- NOTE | 2019-11-08 15:55 | RAD_ITS ---
STUDY: X-RAY CHEST REASON FOR EXAM: Female, 54 years old. DYSPNEA, COUGH, CHILLS, BACK PAIN. HX [place] TECHNIQUE: Single AP portable view of the chest. COMPARISON: August 27, 2019. FINDINGS: The lungs are clear and expanded. There is no demonstrated pleural abnormality. Normal size heart. Normal mediastinum and christy. Normal visualized pulmonary arteries. Normal visualized aortic arch and descending thoracic aorta. There are diffuse degenerative changes of the visualized thoracic spine. Normal visualized ribs, clavicles, and shoulders. There is no demonstrated abnormality of the visualized soft tissue structures of the upper abdomen. RAD/Chest 1 View (Portable) IMPRESSION: Degenerative changes, as described above. No demonstrated acute cardiopulmonary process. Electronically Signed: Ghanshyam Sosa MD at 16:12 EDT , Service support ,
[2019-11-08 16:00] LABS: Absolute Lymphocyte Count 2.05 X10^3/uL (0.83-4.51); Absolute Neutrophil Count 3.5 X10^3/uL (2.0-7.7); Basophil# 0.06 X10^3/uL; Basophil% 0.9 % (0-1); Eosinophil# 0.22 X10^3/uL; Eosinophils% 3.5 % (0-5); Hematocrit 40.5 % (37-47); Hemoglobin 13.8 g/dL (12.0-15.0); Lymphocyte # 2.05 X10^3/ul (4.0); Lymphocyte % 32.2 % (19-41); Mean Corp Hgb Conc 34.1 g/dL (32-36); Mean Corpuscular Hgb 30.2 pg (27.0-32.0); Mean Corpuscular Volume 88.6 fL (81-99); Mean Platelet Vol. 11.6 fl (6.2-12.0); Monocyte# 0.54 X10^3/uL; Monocyte% 8.5 % (0-10); NRBC Flagged by Analyzer 0 % (0-5); Neutrophil # 3.47 X10^3/uL (2.7-7.7); Neutrophil % 54.4 % (47-70); Platelet Count 174 K/mm3 (150-450); RBC Distribution Width CV 12.9 % (11.6-14.6); RBC Distribution Width SD 41.9 fl (35.1-43.9); Red Blood Count 4.57 M/mm3 (4.2-5.4); White Blood Count 6.4 K/mm3 (4.4-11.0)
[2019-11-08 16:13] LABS: ALB/GLOB Ratio 0.9 RATIO (0.9-2.4); AST(SGOT) 26 U/L (15-37); Alanine Aminotransfer ALT/SGPT 25 U/L (13-56); Albumin, Serum 3.4 g/dL (3.2-5.0); Alkaline Phosphatase 110 U/L (45-117); Anion Gap 8 (5-15); BUN 17 mg/dL (7-18); BUN/Creat Ratio 18.9 RATIO (10-20); Calcium,Total 8.8 mg/dL (8.5-10.1); Chloride 102 mmol/L (98-107); EST Glomerular Filtration Rate 69 mL/min (>60); Est Glom Filt Rate - Afr Amer 84 mL/min (>60); Globulin 3.7 g/dL (2.2-4.2); Glucose 173 mg/dL (74-106); Lipase 177 U/L (73-393); Potassium 3.8 mmol/L (3.5-5.1); Protein, Total 7.1 g/dL (6.4-8.2); Sodium Level 135 mmol/L (136-145)
--- NOTE | 2019-11-08 17:28 | EKG12_ITS ---
Test Reason : CP Blood Pressure : / mmHG Vent. Rate : 064 BPM Atrial Rate : 064 BPM P-R Int : 134 ms QRS Dur : 086 ms QT Int : 400 ms P-R-T Axes : 000 -01 045 degrees QTc Int : 412 ms Normal sinus rhythm Inferior infarct , age undetermined Abnormal ECG Confirmed by GALINDO DUNHAM ([id number]), video tape editor COLLINS QUEZADA ([id number]) on 11/12/2019 1:17:13 PM Referred By: ZAKI Confirmed By:GALINDO DUNHAM
[2019-11-08] MEDS: Morphine 4 MG/ML Syringe IV (17:58)
== END 2019-11-08 18:23 | disposition home or self-care (01) ==
PROVIDERS: Emergency Provider Emergency Medicine; PCP Student in an Organized Health Care Education/Training Program
DX: R06.00 Dyspnea, unspecified (principal); B34.9 Viral infection, unspecified; R68.83 Chills (without fever); H53.8 Other visual disturbances; J34.89 Other specified disorders of nose and nasal sinuses; R07.89 Other chest pain; R05 Cough; M54.9 Dorsalgia, unspecified; R51 Headache; E66.9 Obesity, unspecified; J44.9 Chronic obstructive pulmonary disease, unspecified; K21.9 Gastro-esophageal reflux disease without esophagitis; E11.9 Type 2 diabetes mellitus without complications; I10 Essential (primary) hypertension; E78.00 Pure hypercholesterolemia, unspecified; Z87.19 Personal history of other diseases of the digestive system; Z79.4 Long term (current) use of insulin; Z79.84 Long term (current) use of oral hypoglycemic drugs; Z79.899 Other long term (current) drug therapy
CPT/HCPCS: 71045; 80053; 83690; 85025; 87804; 87807; 87880; 93005; 96374; 99283

== ENCOUNTER 2019-12-07 00:22 | Emergency (ER) | payer MEDICARE, MEDICAID, SELFPAY ==
[2019-11-08 14:35] VITALS: BMI 41.5
[2019-12-07 00:23] VITALS: BP 163/92; PULSE 90; RESP 18; TEMP 36.8; O2SAT 96; BMI 44.4
--- NOTE | 2019-12-07 00:32 | ED.VIS.GEN ---
History of Present Illness Chief Complaint: Abd Pain Informant: Patient Narrative: Stated she has a chronic hiatal hernia and chronic reflux. She is on a proton pump inhibitor. She has not missed a dose. She is having epigastric burning going up into her esophagus. She stated she has this daily but it appears worse tonight. No food exposures that she can think of that made this come on. She had a negative stress test early in the year secondary to chest pain likely secondary to reflux. She stated this is definitely reflux burning. Current severity is mild to moderate. She has not tried any orals at home like Maalox. - Past Medical History (1) EMILIO (acute kidney injury) Status: Acute (2) Chest pain Status: Acute (3) Difficulty breathing Status: Acute (4) Hyperglycemia Status: Acute (5) Neck pain Status: Acute (6) Anxiety Status: Chronic (7) Anxiety and depression Status: Chronic (8) COPD (chronic obstructive pulmonary disease) Status: Chronic (9) Depression Status: Chronic (10) Former tobacco use Status: Chronic (11) GERD (gastroesophageal reflux disease) Status: Chronic (12) Hiatal hernia Status: Chronic (13) Hyperlipidemia Status: Chronic (14) Hypertension Status: Chronic (15) Morbid obesity Status: Chronic (16) Morbid obesity Status: Chronic (17) SHARMIN (obstructive sleep apnea) Status: Chronic (18) Status post tracheostomy Status: Chronic (19) Tracheostomy dependence Status: Chronic (20) Type II diabetes mellitus Status: Chronic (21) COPD exacerbation Status: Suspected (22) Acute pancreatitis Status: Resolved (23) Acute respiratory failure Status: Resolved (24) Angioedema Status: Resolved (25) Upper airway obstruction Status: Resolved Past Medical History - Allergies and Home Meds Allergies/Adverse Reactions: Allergies bupropion [From Wellbutrin] Allergy (Verified 12/07/19 00:25) Angioedema lisinopril Allergy (Verified 12/07/19 00:25) Angioedema sulfamethoxazole [From Bactrim] Allergy (Verified 12/07/19 00:25) Rash trimethoprim [From Bactrim] Allergy (Verified 12/07/19 00:25) Rash acetaminophen [From Vicodin] Adverse Reaction (Verified 12/07/19 00:25) Nausea/Vom/Diarrhea aspirin Adverse Reaction (Verified 12/07/19 00:25) Nausea/Vom/Diarrhea hydrocodone [From Vicodin] Adverse Reaction (Verified 12/07/19 00:25) Nausea/Vom/Diarrhea Primary Care Physician: Joaquim Burks DO [Primary Care Provider] - Prior records reviewed: Yes Past Medical History: - - Problem list Surgical History: - - Tracheostomy, cholecystectomy, bilateral tubal ligation, NovaSure, bladder suspension surgery. Smoking Status: Never smoker Alcohol: None Drugs: None - Family History Maternal Family History: Reports: Diabetes, High Cholesterol, Heart Disease, Hypertension Paternal Family History: Reports: Diabetes, High Cholesterol, Heart Disease, Hypertension Review of Systems General: Denies: Chills, Fever, Sweats Eyes: Denies: Visual changes - bilaterally, Diplopia ENT: Denies: Rhinorrhea, Sore throat Cardiovascular: Denies: Chest pain, Palpitations Respiratory: Denies: Dyspnea, Cough, Dyspnea on exertion Gastrointestinal: Reports: Abdominal pain - Acid reflux related esophageal burning. Denies: Nausea, Vomiting, Diarrhea, Melena, Hematochezia Genitourinary: Denies: Dysuria, Hematuria, Frequency Musculoskeletal: Denies: Back pain, Extremity Pain Skin: Denies: Rash, Wounds Neurological: Denies: Headache, Weakness, Numbness Physical Exam Vital Signs/Narrative: Vital Signs Temp Pulse Resp BP Pulse Ox 12/07/19 00:23 98.3 F 90 18 163/92 H 96 General: Well nourished, Well developed, No Acute Distress Head: Normocephalic, Atraumatic Eyes: Perrl, EOMI ENT: Moist mucous membranes, No rhinorrhea Neck: Supple, Nontender Cardiovascular: Regular rate, Regular rhythm, No murmurs Respiratory: No distress, CTA bilaterally, Chest nontender Abdomen: Soft, Nontender, Nondistended, Normal bowel sounds Back: Nontender, Normal Inspection Extremities: Nontender, No edema Skin: Normal color, No rash Neurological: Alert, Oriented x3, Cranial nerves II-XII grossly intact, Normal Strength, Normal Sensation Psychological: Normal affect, Normal Mood Diagnostic/Tx/Re-eval - Medical Decision Making Given a GI cocktail.. She did feel better after this but the burn came back. She was given a dose of IV Pepcid and oral lidocaine again. At this time I do feel this is reflux related. EKG showed normal sinus rhythm. 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 I do not feel this is cardiac. I feel this is hiatal hernia related gastritis and GERD. Patient will continue her PPI and use [id number] Maalox and avoid spicy food ED Disposition - Plan for ED Patient: Disposition: Home or Assisted Living Diagnosis: GERD (gastroesophageal reflux disease) Instructions: What Is GERD? Referrals: Joaquim Burks DO [Primary Care Provider] -
[2019-12-07] MEDS: Mag Hydrox/Al Hydrox/Simeth 30 ML UDC PO (00:57)
--- NOTE | 2019-12-07 01:37 | EKG12_ITS ---
Test Reason : Blood Pressure : / mmHG Vent. Rate : 073 BPM Atrial Rate : 073 BPM P-R Int : 148 ms QRS Dur : 086 ms QT Int : 384 ms P-R-T Axes : 027 -12 026 degrees QTc Int : 423 ms Normal sinus rhythm Inferior infarct , age undetermined Abnormal ECG Confirmed by JOHANN LEPE, HAZEL ([id number]), copy editor JASPAL TRUJILLO ([id number]) on 12/10/2019 2:08:32 PM Referred By: ROMANA Confirmed By:GILL WILLS MD
[2019-12-07] MEDS: Famotidine 200 MG/20 ML MDV 20 MG in 0.9% Normal Saline (Pres. free 8 ML 300 MG IV (01:43)
[2019-12-07 02:50] VITALS: BP 136/82; PULSE 80; RESP 14; RESP 16; O2SAT 98
== END 2019-12-07 02:51 | disposition home or self-care (01) ==
PROVIDERS: Emergency Provider Emergency Medicine; PCP Student in an Organized Health Care Education/Training Program
DX: K21.9 Gastro-esophageal reflux disease without esophagitis (principal); I10 Essential (primary) hypertension; K44.9 Diaphragmatic hernia without obstruction or gangrene; E78.5 Hyperlipidemia, unspecified; E66.01 Morbid (severe) obesity due to excess calories; G47.33 Obstructive sleep apnea (adult) (pediatric); E11.9 Type 2 diabetes mellitus without complications; J44.9 Chronic obstructive pulmonary disease, unspecified; F41.9 Anxiety disorder, unspecified; F32.9 Major depressive disorder, single episode, unspecified; Z87.19 Personal history of other diseases of the digestive system; Z87.09 Personal history of other diseases of the respiratory system; Z79.4 Long term (current) use of insulin; Z79.84 Long term (current) use of oral hypoglycemic drugs; Z79.899 Other long term (current) drug therapy; Z87.891 Personal history of nicotine dependence
CPT/HCPCS: 93005; 96374; 99284; A4216; J3490

== ENCOUNTER 2019-12-26 19:13 | Emergency (ER) | payer MEDICARE, MEDICAID, SELFPAY ==
[2019-12-26 19:15] VITALS: BP 189/92; PULSE 68; RESP 16; TEMP 37.3; O2SAT 98; BMI 44.6
--- NOTE | 2019-12-26 19:23 | ED.VIS.GEN ---
History of Present Illness Chief Complaint: Hyperglycemia Informant: Patient Onset: Today Current Severity: Mild Maximum Severity: Mild Prior similar symptoms: Yes Past Medical History - Allergies and Home Meds Allergies/Adverse Reactions: Allergies bupropion [From Wellbutrin] Allergy (Verified 12/26/19 19:15) Angioedema lisinopril Allergy (Verified 12/26/19 19:15) Angioedema sulfamethoxazole [From Bactrim] Allergy (Verified 12/26/19 19:15) Rash trimethoprim [From Bactrim] Allergy (Verified 12/26/19 19:15) Rash acetaminophen [From Vicodin] Adverse Reaction (Verified 12/26/19 19:15) Nausea/Vom/Diarrhea aspirin Adverse Reaction (Verified 12/26/19 19:15) Nausea/Vom/Diarrhea hydrocodone [From Vicodin] Adverse Reaction (Verified 12/26/19 19:15) Nausea/Vom/Diarrhea Primary Care Physician: Joaquim Burks DO [Primary Care Provider] - Prior records reviewed: Yes Surgical History: - - Tracheostomy, cholecystectomy, bilateral tubal ligation, NovaSure, bladder suspension surgery. Smoking Status: Never smoker Alcohol: None Drugs: None - Family History Maternal Family History: Reports: Diabetes, High Cholesterol, Heart Disease, Hypertension Paternal Family History: Reports: Diabetes, High Cholesterol, Heart Disease, Hypertension Review of Systems All systems negative except as indicated General: Denies: Chills, Fever Eyes: Denies: Visual changes - left, Blurred vision - left Cardiovascular: Denies: Chest pain Respiratory: Denies: Dyspnea, Cough Genitourinary: Denies: Dysuria, Hematuria Musculoskeletal: Reports: Back pain Skin: Reports: Rash. Denies: Abscess Neurological: Denies: Headache Psych: Denies: Depression, Anxiety Endocrine: Reports: Polyuria Physical Exam Vital Signs/Narrative: Vital Signs Temp Pulse Resp BP Pulse Ox 12/26/19 19:15 99.2 F H 68 16 189/92 H 98 Inital Vital Signs reviewed: Yes General: Well nourished, Well developed, Unkempt Head: Normocephalic, Atraumatic Eyes: Perrl ENT: Moist mucous membranes Cardiovascular: Regular rate, Regular rhythm Respiratory: No distress, CTA bilaterally Abdomen: Soft Rectal: Deferred Back: Nontender, Normal Inspection, - - Generalized tenderness over the bilateral flanks. No rash or ecchymosis. No midline spinal tenderness, deformity, step-off. Diagnostic/Tx/Re-eval - Medical Decision Making Patient was seen and evaluated on arrival. Her blood sugar was over 200 outpatient however it is 160s here. Her blood work does not show any signs of infection, anion gap. Her electrolytes are normal. She was given IV fluids and Toradol for her back pain. I do not suspect kidney stone. Urinalysis is negative for infection. Patient does have a rash consistent with bedbugs. While she was here a nurse found a bedbug on her. She will be treated with permethrin cream. She is given return precautions. Patient stable for discharge. ED Disposition - Plan for ED Patient: Disposition: Home or Assisted Living Diagnosis: Hyperglycemia, Bed bug bite, Back pain Instructions: ED Back Care Tips, ED Bite Tick No Abx Tx, ED Bites Bed Bug Referrals: Joaquim Burks DO [Primary Care Provider] -
[2019-12-26] MEDS: 0.9% Normal Saline 1,000 ML 999 ML IV (19:37)
[2019-12-26] MEDS: Ondansetron 4 MG/2 ML Vial IV (19:38)
[2019-12-26 19:49] LABS: Mucous, Urine 0 SEEN /hpf (<or=2+); Red Blood Cells-Urine 0 SEEN /hpf (0-5)
[2019-12-26 19:52] LABS: Color, Urine Yellow (Yellow); Glucose, Dipstick Normal (Normal); Ketone-Dipstick 5 mg/dl (Negative); Leukocyte Esterase-Dipstick 25 /ul (Negative); Nitrite-Dipstick Negative (Negative); Occult Blood-Urine 10 /ul (Negative); Protein-Dipstick 30 mg/dl (Negative); Specific Gravity, Urine 1.025 (1.002-1.030); Urine Bilirubin Dipstick Negative (Negative); Urine Clarity Clear (Clear); Urine Urobilinogen 1 mg/dl (Normal)
[2019-12-26 19:53] LABS: Absolute Lymphocyte Count 2.14 X10^3/uL (0.83-4.51); Absolute Neutrophil Count 3.4 X10^3/uL (2.0-7.7); Basophil# 0.06 X10^3/uL; Basophil% 0.9 % (0-1); Eosinophil# 0.21 X10^3/uL; Eosinophils% 3.3 % (0-5); Hematocrit 41.8 % (37-47); Hemoglobin 14.1 g/dL (12.0-15.0); Lymphocyte # 2.14 X10^3/ul (4.0); Lymphocyte % 33.5 % (19-41); Mean Corp Hgb Conc 33.7 g/dL (32-36); Mean Corpuscular Hgb 30.4 pg (27.0-32.0); Mean Corpuscular Volume 90.1 fL (81-99); Mean Platelet Vol. 11.4 fl (6.2-12.0); Monocyte# 0.51 X10^3/uL; NRBC Flagged by Analyzer 0 % (0-5); Neutrophil # 3.39 X10^3/uL (2.7-7.7); Neutrophil % 53.2 % (47-70); Platelet Count 188 K/mm3 (150-450); RBC Distribution Width CV 12.8 % (11.6-14.6); RBC Distribution Width SD 42.2 fl (35.1-43.9); Red Blood Count 4.64 M/mm3 (4.2-5.4); White Blood Count 6.4 K/mm3 (4.4-11.0)
[2019-12-26 20:00] LABS: Anion Gap 8 (5-15); BUN 14 mg/dL (7-18); BUN/Creat Ratio 13.6 RATIO (10-20); Calcium,Total 8.3 mg/dL (8.5-10.1); Chloride 104 mmol/L (98-107); Creatinine, Serum 1.03 mg/dL (0.55-1.02); EST Glomerular Filtration Rate 59 mL/min (>60); Est Glom Filt Rate - Afr Amer 72 mL/min (>60); Estimated Creatinine Clearance 56.19 ml/min; Glucose 186 mg/dL (74-106); Potassium 3.9 mmol/L (3.5-5.1); Sodium Level 138 mmol/L (136-145)
[2019-12-26 20:07] LABS: Bacteria 1+ /hpf (None Seen); Squamous Epithelial Cells - UA 5-10 SEEN /hpf (5-10); White Blood Cells 0-5 SEEN /hpf (0-5)
[2019-12-26] MEDS: Ketorolac 15 MG/ML Vial IV (20:45)
[2019-12-26 22:15] VITALS: BP 178/96; PULSE 71; RESP 16; O2SAT 98
== END 2019-12-26 22:16 | disposition home or self-care (01) ==
PROVIDERS: Emergency Provider Student in an Organized Health Care Education/Training Program; PCP Student in an Organized Health Care Education/Training Program
DX: R73.9 Hyperglycemia, unspecified (principal); S30.861A Insect bite (nonvenomous) of abdominal wall, initial encounter; M54.9 Dorsalgia, unspecified; W57.XXXA Bitten or stung by nonvenomous insect and other nonvenomous arthropods, initial encounter; Y93.9 Activity, unspecified; Y92.9 Unspecified place or not applicable
CPT/HCPCS: 80048; 81001; 85025; 96361; 96374; 96375; 99285; J7030; J2405

== ENCOUNTER 2020-01-10 01:08 | Emergency (ER) | payer MEDICARE, MEDICAID, SELFPAY ==
[2020-01-10 01:09] VITALS: BP 186/82; PULSE 88; RESP 16; TEMP 36.8; O2SAT 97; BMI 45.1
--- NOTE | 2020-01-10 01:25 | ED.DCSUM_ITS ---
History of Present Illness Chief Complaint: Complaint Informant: Patient Associated Symptoms: Dysuria, Frequency, Urgency, - - hesitancy. Negative for: Hematuria Narrative: Patient has had symptoms for several hours. Started gradually, spontaneously. No injury. No discharge from her vagina. No abdominal pain, more perineal discomfort. Lopez when she urinates. Mild discomfort in her mid low back. No fevers or chills. Mild nausea no vomiting. Has had bladder infections in the past and had the symptoms. - Past Medical History (1) Anxiety and depression Status: Chronic (2) COPD (chronic obstructive pulmonary disease) Status: Chronic (3) GERD (gastroesophageal reflux disease) Status: Chronic (4) Hyperlipidemia Status: Chronic (5) Hypertension Status: Chronic (6) SHARMIN (obstructive sleep apnea) Status: Chronic (7) Type II diabetes mellitus Status: Chronic Past Medical History - Allergies and Home Meds Allergies/Adverse Reactions: Allergies bupropion [From Wellbutrin] Allergy (Verified 01/10/20 01:12) Angioedema lisinopril Allergy (Verified 01/10/20 01:12) Angioedema sulfamethoxazole [From Bactrim] Allergy (Verified 01/10/20 01:12) Rash trimethoprim [From Bactrim] Allergy (Verified 01/10/20 01:12) Rash acetaminophen [From Vicodin] Adverse Reaction (Verified 01/10/20 01:12) Nausea/Vom/Diarrhea aspirin Adverse Reaction (Verified 01/10/20 01:12) Nausea/Vom/Diarrhea hydrocodone [From Vicodin] Adverse Reaction (Verified 01/10/20 01:12) Nausea/Vom/Diarrhea Primary Care Physician: Joaquim Burks DO [Primary Care Provider] - 3-5 Days if not improving Surgical History: - - Tracheostomy, cholecystectomy, bilateral tubal ligation, NovaSure, bladder suspension surgery. Smoking Status: Former smoker - Family History Maternal Family History: Reports: Diabetes, High Cholesterol, Heart Disease, Hypertension Paternal Family History: Reports: Diabetes, High Cholesterol, Heart Disease, Hypertension Review of Systems General: Denies: Chills, Fever, Sweats Eyes: Denies: Visual changes - bilaterally, Diplopia ENT: Denies: Rhinorrhea, Sore throat Cardiovascular: Denies: Chest pain, Palpitations Respiratory: Denies: Dyspnea, Cough, Dyspnea on exertion Gastrointestinal: Reports: Nausea. Denies: Abdominal pain, Vomiting, Diarrhea, Melena, Hematochezia Genitourinary: Reports: Dysuria, Frequency. Denies: Hematuria Musculoskeletal: Reports: Back pain. Denies: Neck pain, Swelling, Extremity Pain Skin: Denies: Rash, Wounds Neurological: Denies: Headache, Weakness, Numbness Physical Exam Vital Signs/Narrative: Vital Signs Temp Pulse Resp BP Pulse Ox 01/10/20 01:09 98.3 F 88 16 186/82 H 97 Inital Vital Signs reviewed: Yes General: Well nourished, Well developed, Obese, - - NAD Head: Normocephalic, Atraumatic Eyes: Perrl, EOMI ENT: Moist mucous membranes, No rhinorrhea Neck: Supple, - - FROM grossly Respiratory: No distress Abdomen: Soft, Nondistended, Normal bowel sounds, Tender - mild, suprapubic only. Negative for: Guarding, Rebound tenderness : Speculum exam: Normal external genitalia, No vaginal lesions Back: Nontender, Normal Inspection. Negative for: CVA tenderness Extremities: Nontender, No edema Skin: Normal color, No rash, No Trauma Neurological: Alert, Oriented x3, Cranial nerves II-XII grossly intact, Normal Strength, Normal Sensation, Normal Gait Psychological: Normal affect, Normal Mood Diagnostic/Tx/Re-eval Laboratory Tests 3 01/10/20 Range/Units 01:40 Urine Color Yellow (Yellow) Urine Clarity Sl. Cloudy (Clear) Urine pH 6.0 (5.0 - 8.0) Ur Specific [place] 1.025 (1.002-1.030) Urine Protein 30 H (Negative) mg/dl Urine Glucose (UA) Normal (Normal) mg/dl Urine Ketones 5 H (Negative) mg/dl Urine Occult Blood 250 H (Negative) /ul Urine Nitrite Negative (Negative) Urine Bilirubin Negative (Negative) mg/dL Urine Urobilinogen 1 H (Normal) mg/dl Ur Leukocyte Esterase 25 H (Negative) /ul Urine RBC > 100 SEEN (0-5) /hpf Urine WBC 0-5 SEEN (0-5) /hpf Ur Squamous Epith Cells 0-5 SEEN (5-10) /hpf Urine Bacteria RARE (None Seen) /hpf Urine Mucus 2+ (<or=2+) /hpf Clinical Impression(s) from Imaging Studies Abdomen/Pelvis CT 01/10/20 02:03 IMPRESSION: 1. Nonobstructing 3 mm right ureterovesicular junction calculus 2. Additional nodular bilateral renal calculi. 3. Mild distal descending and proximal sigmoid colonic diverticulosis with no evidence of acute diverticulitis. 4. 4 mm noncalcified nodule at the right midlung base. Electronically Signed: Chele Gonzalez MD at 2:54 EDT Tel , Service support , - Medical Decision/Diagnostic Studies Patient's urine does not show significant pyuria but there is significant amount of blood. On reevaluation of patient she is very comfortable, she states that her pain is more on the right and her back although she does not have CVA tenderness. She is amenable to getting a CT scan to see if maybe this is a kidney stone. She has had this before but does not remember how they felt compared to how she is feeling now. Scan shows a nonobstructing UVJ stone on the right. I suspect although it is not obstructing and causing hydroureter/hydronephrosis, this is causing her symptoms. Since she has burning dysuria and 25 leukocyte esterase on the urinalysis, I will still place her on cephalexin for possibility of early infection, but I suspect she will pass the stone without any difficulty at 3 mm and nonobstructing. She is sent home with some strainers and prescriptions for analgesics, her pharmacy feels that here so she will be able to take 1 when she gets home, hence the reason I did not give her narcotic here since she is driving home. Also given prescription for Pyridium. She is comfortable with discharge. ED Disposition - Plan for ED Patient: Disposition: Home or Assisted Living Diagnosis: Ureterolithiasis, Ureteral colic Instructions: ED Renal Stone w Colic Prescriptions: Cephalexin [Keflex] 500 mg PO TID #21 cap Prescription Printed Hydrocodone Bitart/Apap 5-325 [B[place]bee 5MG-325MG] 1 tab PO Q4H PRN PRN 2 Days #10 tab PRN Reason: Pain Prescription Printed Phenazopyridine [Pyridium] 200 mg PO TID #12 tab Prescription Printed Referrals: Joaquim uBrks, DO [Primary Care Provider] - 3-5 Days if not improving
[2020-01-10 01:46] LABS: Color, Urine Yellow (Yellow); Glucose, Dipstick Normal (Normal); Ketone-Dipstick 5 mg/dl (Negative); Leukocyte Esterase-Dipstick 25 /ul (Negative); Nitrite-Dipstick Negative (Negative); Occult Blood-Urine 250 /ul (Negative); Protein-Dipstick 30 mg/dl (Negative); Specific Gravity, Urine 1.025 (1.002-1.030); Urine Bilirubin Dipstick Negative (Negative); Urine Clarity Sl. Cloudy (Clear); Urine Urobilinogen 1 mg/dl (Normal)
[2020-01-10 01:53] LABS: Mucous, Urine 2+ /hpf (<or=2+)
[2020-01-10 01:54] LABS: Red Blood Cells-Urine > 100 SEEN /hpf (0-5)
[2020-01-10 01:56] LABS: Squamous Epithelial Cells - UA 0-5 SEEN /hpf (5-10); White Blood Cells 0-5 SEEN /hpf (0-5)
[2020-01-10 01:59] LABS: Bacteria RARE /hpf (None Seen)
--- NOTE | 2020-01-10 02:03 | CT_ITS ---
STUDY: CT ABDOMEN AND PELVIS WITHOUT CONTRAST REASON FOR EXAM: Female, 54 years old. Right flank pain and dysuria RADIATION DOSAGE (If Supplied By Facility): CTDIvol = ( 23.46 ) mGy, DLP = ( 1190.04 ) mGycm TECHNIQUE: Transaxial images were obtained from the dome of the diaphragm to the symphysis pubis without oral contrast, and without intravenous contrast. Sagittal and coronal images were reconstructed. Individualized dose optimization techniques were used for this CT. COMPARISON: None. FINDINGS: 4 mm noncalcified nodule at the right midlung base. The visualized portions of the heart are within normal limits. Normal liver. Gallbladder is surgically absent. Normal spleen. Normal pancreas. Normal bilateral adrenal glands. No renal parenchymal lesion. Calcifications within bilateral renal collecting systems measuring up to 3 mm on the right and 4 mm on the left. No hydronephrosis. 3 mm calculus at the right ureterovesicular junction., Normal visualized stomach. Normal small intestine. Mild diverticular disease of the distal descending and proximal sigmoid colon without localized inflammation. The appendix is visualized and appears normal. Normal abdominal aorta. Normal inferior vena cava. Normal retroperitoneum. Normal urinary bladder. Normal reproductive structures. Bilateral fallopian clips in place. Normal abdominal wall. Multilevel degenerative change of the spine. CT/Abdomen/Pelvis without Cont IMPRESSION: 1. Nonobstructing 3 mm right ureterovesicular junction calculus 2. Additional nodular bilateral renal calculi. 3. Mild distal descending and proximal sigmoid colonic diverticulosis with no evidence of acute diverticulitis. 4. 4 mm noncalcified nodule at the right midlung base. Electronically Signed: Chele Gonzalez MD at 2:54 EDT Tel , Service support ,
[2020-01-10] MEDS: Phenazopyridine 95 MG Tablet 190 MG PO (02:12)
[2020-01-10] MEDS: Cephalexin 250 MG Capsule 500 MG PO (02:12)
[2020-01-10 02:59] VITALS: BP 157/78; PULSE 79; RESP 18; O2SAT 98
== END 2020-01-10 03:15 | disposition home or self-care (01) ==
PROVIDERS: Emergency Provider Emergency Medicine; PCP Student in an Organized Health Care Education/Training Program
DX: N20.2 Calculus of kidney with calculus of ureter (principal); E66.9 Obesity, unspecified; I10 Essential (primary) hypertension; F41.9 Anxiety disorder, unspecified; F32.9 Major depressive disorder, single episode, unspecified; J44.9 Chronic obstructive pulmonary disease, unspecified; K21.9 Gastro-esophageal reflux disease without esophagitis; E78.5 Hyperlipidemia, unspecified; G47.33 Obstructive sleep apnea (adult) (pediatric); E11.9 Type 2 diabetes mellitus without complications; Z79.4 Long term (current) use of insulin; Z79.84 Long term (current) use of oral hypoglycemic drugs; Z79.899 Other long term (current) drug therapy; Z87.891 Personal history of nicotine dependence
CPT/HCPCS: 74176; 81001; 99284; P9612

== ENCOUNTER 2020-01-17 06:18 | Emergency (ER) | payer MEDICARE, MEDICAID, SELFPAY ==
[2020-01-17 06:19] VITALS: BP 147/77; PULSE 82; RESP 16; TEMP 36.8; O2SAT 97; BMI 44.9
--- NOTE | 2020-01-17 06:23 | EKG12_ITS ---
Test Reason : CP Blood Pressure : / mmHG Vent. Rate : 082 BPM Atrial Rate : 082 BPM P-R Int : 122 ms QRS Dur : 078 ms QT Int : 370 ms P-R-T Axes : 040 -11 033 degrees QTc Int : 432 ms Normal sinus rhythm Inferior infarct , age undetermined Abnormal ECG Confirmed by GALINDO DUNHAM ([id number]), online editor COLLINS QUEZADA ([id number]) on 01/21/2020 11:50:43 AM Referred By: HENRY Confirmed By:GALINDO DUNHAM
--- NOTE | 2020-01-17 06:23 | RAD_ITS ---
STUDY: X-RAY CHEST REASON FOR EXAM: Female, 54 years old. CP - ACUTE ON-SET. HX OF NM AND STRONG HX OF CARDIAC ISSUES. TECHNIQUE: Single AP portable view of the chest. COMPARISON: 11/08/2019. FINDINGS: The lungs are clear and expanded. There is no demonstrated pleural abnormality. Normal size heart. Normal mediastinum and christy. Normal visualized pulmonary arteries. Normal visualized aortic arch and descending thoracic aorta. There are multilevel degenerative changes of the visualized thoracic spine. . There is no demonstrated abnormality of the visualized soft tissue structures of the upper abdomen. RAD/Chest 1 View (Portable) IMPRESSION: No evidence for acute cardiopulmonary pathology. Electronically Signed: Alex Askew MD at 7:30 EDT , Service support ,
--- NOTE | 2020-01-17 06:24 | ED.VISSUMM ---
- ER Visit Summary Date of Service: 01/17/20 Chief Complaint: Chest pain History of Present Illness: The patient is a 54 F patient presents with chest pain. It started 8 hours ago. It is a pressure in the middle part of her chest. It does not radiate. Nothing makes it worse. Nitroglycerin by EMS makes it a little bit better. She has nausea. No dyspnea or diaphoresis. This pain started when she was in an argument with her nephew. She has a history of anxiety and depression. She also has cardiac risk factors of hypertension, diabetes and high cholesterol. She tells me that she has had a heart attack in the past but has no stents in her heart. She has had 2 admits for chest pain this year. She had a stress test earlier this year which was negative. Physical Examination: Vital signs reviewed. HEENT exam unremarkable. Heart is regular rate and rhythm without murmurs. Lungs are clear to auscultation. Abdomen is soft and nontender. Extremities reveal no edema. Peripheral pulses are equal. Skin exam normal. Neurologic exam normal. Test Results: EKG is normal sinus rhythm with a rate of 82. No ST changes. Emergency Department Course and Treatment: [] Treatment Plan: [] Disposition: [] Impression: Chest pain This note was generated with [employer] software. It may contain incorrect words, spelling, and punctuation that were not noted in review of the chart prior to signing <Juan M Edge - Last Filed: 01/17/20 06:42> - ER Visit Summary Date of Service: 01/17/20 Test Results: Care of the patient was turned over to me pending results. Chest x-ray does not show any acute cardiopulmonary process. This was interpreted by the radiologist and reviewed by myself. CBC, basic metabolic profile, troponin were obtained and were all within normal limits. Emergency Department Course and Treatment: Patient did have an episode of nausea here patient was given a dose of Zofran. Patient is feeling better on reevaluation. Patient was advised of her results. She has a HEART score of 3. Patient was advised that this is low risk for acute cardiac event. Patient was instructed to follow-up with her primary care physician in 5 to 7 days. Patient understood and was agreeable with the plan. All questions were answered. Disposition: Discharge home Impression: Chest pain This note was generated with Dragon dictation software. It may contain incorrect words, spelling, and punctuation that were not noted in review of the chart prior to signing <Law Rizzo - Last Filed: 01/17/20 07:38> ED Disposition <Juan M Edge - Last Filed: 01/17/20 06:42> <Law Rizzo - Last Filed: 01/17/20 07:38> - Plan for ED Patient: Disposition: Home or Assisted Living Diagnosis: Chest pain of uncertain etiology Instructions: ED Chest Pain NonCardiac Referrals: Joaquim Burks DO [Primary Care Provider] -
[2020-01-17] MEDS: Nitroglycerin SL (ED/IMG/CATH) 0.4 MG TABLET SUBLINGUAL (06:38)
[2020-01-17 06:43] LABS: Absolute Lymphocyte Count 2.85 X10^3/uL (0.83-4.51); Absolute Neutrophil Count 4.5 X10^3/uL (2.0-7.7); Basophil# 0.07 X10^3/uL; Basophil% 0.8 % (0-1); Eosinophils% 2.4 % (0-5); Hematocrit 41.2 % (37-47); Lymphocyte # 2.85 X10^3/ul (4.0); Lymphocyte % 34.1 % (19-41); Mean Corpuscular Hgb 30.2 pg (27.0-32.0); Mean Platelet Vol. 10.9 fl (6.2-12.0); Monocyte# 0.62 X10^3/uL; Monocyte% 7.4 % (0-10); NRBC Flagged by Analyzer 0 % (0-5); Neutrophil # 4.52 X10^3/uL (2.7-7.7); Neutrophil % 54.1 % (47-70); Platelet Count 209 K/mm3 (150-450); RBC Distribution Width CV 13.2 % (11.6-14.6); RBC Distribution Width SD 42.2 fl (35.1-43.9); Red Blood Count 4.63 M/mm3 (4.2-5.4); White Blood Count 8.4 K/mm3 (4.4-11.0)
--- NOTE | 2020-01-17 06:56 | ED.DEP ---
ED Disposition - Plan for ED Patient: Disposition: Home or Assisted Living Instructions: ED Chest Pain NonCardiac Referrals: Joaquim Burks DO [Primary Care Provider] -
[2020-01-17 07:00] LABS: Anion Gap 7 (5-15); BUN 25 mg/dL (7-18); Calcium,Total 9.3 mg/dL (8.5-10.1); Chloride 106 mmol/L (98-107); Creatinine, Serum 0.86 mg/dL (0.55-1.02); EST Glomerular Filtration Rate 73 mL/min (>60); Est Glom Filt Rate - Afr Amer 88 mL/min (>60); Estimated Creatinine Clearance 67.29 ml/min; Glucose 175 mg/dL (74-106); Potassium 3.5 mmol/L (3.5-5.1); Sodium Level 137 mmol/L (136-145)
[2020-01-17] MEDS: Ondansetron ODT 4 MG Tablet PO (07:14)
[2020-01-17 07:52] VITALS: BP 152/84; PULSE 76; RESP 18; O2SAT 98
== END 2020-01-17 07:54 | disposition home or self-care (01) ==
PROVIDERS: Emergency Provider Emergency Medicine; PCP Student in an Organized Health Care Education/Training Program
DX: R07.89 Other chest pain (principal); R11.0 Nausea; I10 Essential (primary) hypertension; E78.00 Pure hypercholesterolemia, unspecified; I25.2 Old myocardial infarction; E11.9 Type 2 diabetes mellitus without complications
CPT/HCPCS: 71045; 80048; 84484; 85025; 93005; 99285; A4216

== ENCOUNTER 2020-01-21 15:39 | Emergency (ER) | payer MEDICARE, MEDICAID, SELFPAY ==
[2020-01-21 15:42] VITALS: BP 187/106; PULSE 65; RESP 14; TEMP 36.7; O2SAT 97; BMI 45.4
--- NOTE | 2020-01-21 16:01 | EKG12_ITS ---
Test Reason : FELL CP Blood Pressure : / mmHG Vent. Rate : 059 BPM Atrial Rate : 059 BPM P-R Int : 144 ms QRS Dur : 080 ms QT Int : 402 ms P-R-T Axes : 004 -06 045 degrees QTc Int : 397 ms Sinus bradycardia Inferior infarct , age undetermined Abnormal ECG Confirmed by LILLIAN LEPE, JUWAN ([id number]), editor continuity and script COLLINS QUEZADA ([id number]) on 01/23/2020 12:34:50 PM Referred By: NATHANIEL Confirmed By:JUWAN SNYDER MD
--- NOTE | 2020-01-21 16:02 | CT_ITS ---
STUDY: CT ABDOMEN AND PELVIS WITH CONTRAST REASON FOR EXAM: Female, 54 years old. BLOODY DIARRHEA, ABD PAIN, CHOLECYSTECTOMY, HYSTERECTOMY RADIATION DOSAGE (If Supplied By Facility): CTDIvol = ( 21.90 ) mGy, DLP = ( 1303.76 ) mGycm TECHNIQUE: Transaxial images were obtained from the dome of the diaphragm to the symphysis pubis without oral contrast. IV 100mL Isovue-300 was administered. Sagittal and coronal images were reconstructed. Individualized dose optimization techniques were used for this CT. COMPARISON: Previous recent study of 01-10-20 FINDINGS: There is a 4 mm right middle lobe nodule image 5 series 2. The visualized portions of the heart are within normal limits. Normal liver. There are surgical clips in the gallbladder fossa consistent with a prior cholecystectomy. Normal spleen. Normal pancreas. Normal bilateral adrenal glands. There is a nonobstructing 4 mm right renal calculus. There are several nonobstructing left renal calculi in the 2 to 3 mm range. There is a small hiatal hernia. Normal small intestine. There is mild sigmoid diverticulosis with no evidence of associated diverticulitis. There is non-visualization of the appendix. There are calcified plaques of the abdominal aorta. Normal inferior vena cava. Normal retroperitoneum. Normal urinary bladder. The uterus appears normal. Bilateral tubal ligation clips are noted. Normal abdominal wall. There are diffuse degenerative changes of the visualized lumbar spine. CT/Abdomen/Pelvis W IV Cont ONLY IMPRESSION: 1. 4 mm right middle lobe nodule, noted on the previous study. Appropriate follow-up using FLEISCHNER Society criteria is recommended. 2. Status post cholecystectomy. 3. Nonobstructing bilateral renal calculi. 4. Small hiatal hernia. 5. Sigmoid diverticulosis with no evidence of associated diverticulitis. 6. Bilateral tubal ligation clips are noted. Electronically Signed: Simón Alcantar MD at 17:04 EDT , Service support ,
--- NOTE | 2020-01-21 16:03 | RAD_ITS ---
STUDY: X-RAY - LEFT KNEE REASON FOR EXAM: Female, 54 years old. fall, pain in left knee TECHNIQUE: 4 view(s) of the knee. COMPARISON: None. FINDINGS: Normal visualized distal femur. Normal visualized proximal tibia and fibula. Normal proximal tibiofibular articulation. Normal medial femorotibial compartment. Normal lateral femorotibial compartment. Normal patellofemoral articulation. The soft tissue structures are unremarkable. RAD/Knee 4 or More Views IMPRESSION: Normal x-ray examination of the knee. Electronically Signed: Simón Alcantar MD at 16:52 EDT , Service support ,
--- NOTE | 2020-01-21 16:03 | ED.DCSUM_ITS ---
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 The first is that she sustained a fall today while making the bed. She notes pain to the left knee. She states she hit her head but denies any outward signs of trauma or loss of consciousness and she is not on any blood thinners. She also states that for weeks she has had intermittent bloody diarrhea. She is not had any today. She notes a right upper quadrant abdominal pain. She states that is typically where her pain is when she has the bloody diarrhea. She also states that since last she has had constant chest pain described as being poked on the left side of the chest along the costochondral border. Is worse with movements. She has been seen multiple times this year for chest pain and has had a negative stress test. She states she also has a nodule on her chest and was scheduled for a CAT scan. She states that she has been more depressed than normal but no suicidal homicidal ideation. She states that her doctor called her today to set up an appointment for her to get a CT scan of her chest to evaluate this nodule and was told that she should come to the hospital and be admitted. Past Medical History - Allergies and Home Meds Allergies/Adverse Reactions: Allergies bupropion [From Wellbutrin] Allergy (Verified 01/21/20 15:41) Angioedema lisinopril Allergy (Verified 01/21/20 15:41) Angioedema sulfamethoxazole [From Bactrim] Allergy (Verified 01/21/20 15:41) Rash trimethoprim [From Bactrim] Allergy (Verified 01/21/20 15:41) Rash acetaminophen [From Vicodin] Adverse Reaction (Verified 01/21/20 15:41) Nausea/Vom/Diarrhea aspirin Adverse Reaction (Verified 01/21/20 15:41) Nausea/Vom/Diarrhea hydrocodone [From Vicodin] Adverse Reaction (Verified 01/21/20 15:41) Nausea/Vom/Diarrhea Primary Care Physician: Joaquim Burks DO [Primary Care Provider] - Surgical History: - - Tracheostomy, cholecystectomy, bilateral tubal ligation, NovaSure, bladder suspension surgery. Smoking Status: Former smoker - Family History Maternal Family History: Reports: Diabetes, High Cholesterol, Heart Disease, Hypertension Paternal Family History: Reports: Diabetes, High Cholesterol, Heart Disease, Hypertension Review of Systems General: Denies: Chills, Fever, Sweats Eyes: Denies: Visual changes - bilaterally, Diplopia ENT: Denies: Rhinorrhea, Sore throat Cardiovascular: Reports: Chest pain. Denies: Palpitations Respiratory: Denies: Dyspnea, Cough, Dyspnea on exertion Gastrointestinal: Reports: Abdominal pain, Diarrhea, Hematochezia. Denies: Nausea, Vomiting Genitourinary: Denies: Dysuria, Hematuria, Frequency Musculoskeletal: Reports: Extremity Pain, - - The left knee is mildly swollen without effusion. Ligaments appear stable. Extensor mechanism intact. Denies: Back pain Skin: Denies: Rash, Wounds Neurological: Denies: Headache, Weakness, Numbness Physical Exam Vital Signs/Narrative: Vital Signs Temp Pulse Resp BP Pulse Ox 01/21/20 15:42 98.1 F 65 14 187/106 H 97 Inital Vital Signs reviewed: Yes General: Well nourished, Well developed, Obese, No Acute Distress Head: Normocephalic, Atraumatic Eyes: Perrl, EOMI ENT: Moist mucous membranes, No rhinorrhea Neck: Supple, Nontender Cardiovascular: Regular rate, Regular rhythm, No murmurs Respiratory: No distress, CTA bilaterally, Chest tenderness - Tender to palpation with the patient points the area of her chest that hurts - left costochondral border. Abdomen: Soft, Nondistended, Normal bowel sounds, Tender. Negative for: Guarding, Rebound tenderness Back: Nontender, Normal Inspection Extremities: Nontender, No edema Skin: Normal color, No rash Neurological: Alert, Oriented x3, Cranial nerves II-XII grossly intact, Normal Strength, Normal Sensation Psychological: Depressed - No suicidal homicidal ideation Diagnostic/Tx/Re-eval Clinical Impression(s) from Imaging Studies Abdomen/Pelvis CT 01/21/20 16:02 IMPRESSION: 1. 4 mm right middle lobe nodule, noted on the previous study. Appropriate follow-up using FLEISCHNER Society criteria is recommended. 2. Status post cholecystectomy. 3. Nonobstructing bilateral renal calculi. 4. Small hiatal hernia. 5. Sigmoid diverticulosis with no evidence of associated diverticulitis. 6. Bilateral tubal ligation clips are noted. Electronically Signed: Simón Alcantar MD at 17:04 EDT , Service support , Knee X-Ray 01/21/20 16:03 IMPRESSION: Normal x-ray examination of the knee. Electronically Signed: Simón Alcantar MD at 16:52 EDT , Service support , Chest X-Ray 01/21/20 16:25 IMPRESSION: Normal x-ray examination of the chest. Electronically Signed: Simón Alcantar MD at 16:51 EDT , Service support , Abnormal Lab Results 01/21/20 01/21/20 01/21/20 16:00 16:20 16:20 WBC 7.2 RBC 4.98 Hgb 15.1 H Hct 44.4 MCV 89.2 MCH 30.3 MCHC 34.0 RDW Std Deviation 41.5 RDW Coeff of Cecil 12.7 Plt Count 222 MPV 11.3 Immature Gran % (Auto) 0.700 Neut % (Auto) 53.8 Lymph % (Auto) 33.2 [place] % (Auto) 8.4 Eos % (Auto) 2.8 Baso % (Auto) 1.1 H Absolute Neuts (auto) 3.9 Absolute Lymphs (auto) 2.40 Nucleated RBC % 0 PT Cancelled INR Cancelled APTT Cancelled Sodium 133 L Potassium 4.1 Chloride 102 Carbon Dioxide 23.0 Anion Gap 8 BUN 18 Creatinine 0.96 Estim Creat Clear Calc 60.28 Est GFR (MDRD) Af Amer 78 Est GFR (MDRD) Non-Af 64 BUN/Creatinine Ratio 18.8 Glucose 158 H Lactic Acid Calcium 9.0 Total Bilirubin 0.50 AST 28 ALT 30 Alkaline Phosphatase 105 Troponin I < 0.015 Total Protein 7.9 Albumin 3.9 Globulin 4.0 Albumin/Globulin Ratio 1.0 Lipase 135 01/21/20 17:25 WBC RBC Hgb Hct MCV MCH MCHC RDW Std Deviation RDW Coeff of Cecil Plt Count MPV Immature Gran % (Auto) Neut % (Auto) Lymph % (Auto) [place] % (Auto) Eos % (Auto) Baso % (Auto) Absolute Neuts (auto) Absolute Lymphs (auto) Nucleated RBC % PT INR APTT Sodium Potassium Chloride Carbon Dioxide Anion Gap BUN Creatinine Estim Creat Clear Calc Est GFR (MDRD) Af Amer Est GFR (MDRD) Non-Af BUN/Creatinine Ratio Glucose Lactic Acid 1.5 Calcium Total Bilirubin AST ALT Alkaline Phosphatase Troponin I Total Protein Albumin Globulin Albumin/Globulin Ratio Lipase - EKG Initial EKG Interpretation: Sinus Bradycardia - EKG demonstrates a sinus bradycardia at a rate of 59 without evidence of ACS or ectopy - Medical Decision Making CT the abdomen pelvis did not demonstrate anything acute. Sigmoid diverticulosis noted. No inflammatory changes or obvious emergency noted in the right upper quadrant. Pulmonary nodule noted. Knee x-rays were negative for fracture. Basic blood work was normal as well. I think that with a normal EKG and negative troponin after more than a week of symptoms and the fact that her chest pain is reproducible with palpation and where it is located most likely represents costochondritis. Cannot explain why the patient has pain in the right upper quadrant. It could be that her blood in her stool is related to her diverticulosis. However she is hemodynamically stable with a normal hemoglobin when I recommend outpatient follow-up. She has seen Dr. Mendoza in the past she states for colonoscopy. Knee will be treated conservatively with ice and rest. ED Disposition - Plan for ED Patient: Disposition: Home or Assisted Living Diagnosis: Costochondritis, Sigmoid diverticulosis, Hematochezia, Abdominal pain, Contusion of knee, left, Diarrhea, Anxiety and depression Instructions: ED CHEST PAIN [place], ED Diverticulosis, ED EXTREMITY CONTUSION Lower Referrals: Joaquim Burks DO [Primary Care Provider] - As soon as possible Florentino Mendoza MD [STAFF PHYSICIAN] - (call to arrange colonoscopy)
--- NOTE | 2020-01-21 16:25 | RAD_ITS ---
STUDY: X-RAY CHEST REASON FOR EXAM: Female, 54 years old. fall, chest pain and abdomen pain TECHNIQUE: PA and lateral views of the chest. COMPARISON: Prior study of 01-17-20 FINDINGS: cafeteria monitor leads are present. The lungs are clear and expanded. There is no demonstrated pleural abnormality. Normal size heart. Normal mediastinum and christy. Normal visualized pulmonary arteries. Normal visualized aortic arch and descending thoracic aorta. Normal visualized thoracic spine. Normal visualized ribs, clavicles, and shoulders. There is no demonstrated abnormality of the visualized soft tissue structures of the upper abdomen. RAD/Chest PA and Lateral IMPRESSION: Normal x-ray examination of the chest. Electronically Signed: Simón Alcantar MD at 16:51 EDT , Service support ,
[2020-01-21 17:12] LABS: Absolute Neutrophil Count 3.9 X10^3/uL (2.0-7.7); Basophil# 0.08 X10^3/uL; Basophil% 1.1 % (0-1); Eosinophils% 2.8 % (0-5); Hematocrit 44.4 % (37-47); Hemoglobin 15.1 g/dL (12.0-15.0); Lymphocyte % 33.2 % (19-41); Mean Corpuscular Hgb 30.3 pg (27.0-32.0); Mean Corpuscular Volume 89.2 fL (81-99); Mean Platelet Vol. 11.3 fl (6.2-12.0); Monocyte# 0.61 X10^3/uL; Monocyte% 8.4 % (0-10); NRBC Flagged by Analyzer 0 % (0-5); Neutrophil # 3.89 X10^3/uL (2.7-7.7); Neutrophil % 53.8 % (47-70); Platelet Count 222 K/mm3 (150-450); RBC Distribution Width CV 12.7 % (11.6-14.6); RBC Distribution Width SD 41.5 fl (35.1-43.9); Red Blood Count 4.98 M/mm3 (4.2-5.4); White Blood Count 7.2 K/mm3 (4.4-11.0)
[2020-01-21 17:27] LABS: AST(SGOT) 28 U/L (15-37); Alanine Aminotransfer ALT/SGPT 30 U/L (13-56); Albumin, Serum 3.9 g/dL (3.2-5.0); Alkaline Phosphatase 105 U/L (45-117); Anion Gap 8 (5-15); BUN 18 mg/dL (7-18); BUN/Creat Ratio 18.8 RATIO (10-20); Chloride 102 mmol/L (98-107); Creatinine, Serum 0.96 mg/dL (0.55-1.02); EST Glomerular Filtration Rate 64 mL/min (>60); Est Glom Filt Rate - Afr Amer 78 mL/min (>60); Estimated Creatinine Clearance 60.28 ml/min; Glucose 158 mg/dL (74-106); Lipase 135 U/L (73-393); Potassium 4.1 mmol/L (3.5-5.1); Protein, Total 7.9 g/dL (6.4-8.2); Sodium Level 133 mmol/L (136-145)
[2020-01-21 17:56] LABS: Lactic Acid 1.5 mmol/L (0.4-1.9)
[2020-01-21 18:15] VITALS: BP 146/72; PULSE 69; RESP 15; O2SAT 98
== END 2020-01-21 18:22 | disposition home or self-care (01) ==
PROVIDERS: Emergency Provider Emergency Medicine; PCP Student in an Organized Health Care Education/Training Program
DX: M94.0 Chondrocostal junction syndrome [Tietze] (principal); K57.30 Diverticulosis of large intestine without perforation or abscess without bleeding; K92.1 Melena; R10.9 Unspecified abdominal pain; S80.02XA Contusion of left knee, initial encounter; W19.XXXA Unspecified fall, initial encounter; Y93.9 Activity, unspecified; Y92.9 Unspecified place or not applicable; R19.7 Diarrhea, unspecified; F32.9 Major depressive disorder, single episode, unspecified; F41.9 Anxiety disorder, unspecified; E66.9 Obesity, unspecified; Z79.899 Other long term (current) drug therapy; Z87.891 Personal history of nicotine dependence
CPT/HCPCS: 71046; 73564; 74177; 80053; 83605; 83690; 84484; 85025; 93005; 99285; Q9967; A4216

== ENCOUNTER 2020-02-13 23:28 | Emergency (ER) | payer MEDICARE, MEDICAID, SELFPAY ==
[2020-02-13 23:29] VITALS: BP 144/87; PULSE 78; RESP 18; TEMP 35.8; O2SAT 97; BMI 43.3
--- NOTE | 2020-02-13 23:44 | EKG12_ITS ---
Test Reason : DYSRHYTHMIA Blood Pressure : / mmHG Vent. Rate : 069 BPM Atrial Rate : 069 BPM P-R Int : 142 ms QRS Dur : 086 ms QT Int : 394 ms P-R-T Axes : 023 058 003 degrees QTc Int : 422 ms Normal sinus rhythm Normal ECG Confirmed by JOHANN LEPE, HAZEL ([id number]), sound editor ELFEGO CHAVEZ ([id number]) on 02/15/2020 2:41:59 PM Referred By: ROMANA Confirmed By:GILL WILLS MD
--- NOTE | 2020-02-13 23:45 | ED.VIS.GEN ---
History of Present Illness Chief Complaint: Complaint Informant: Patient Narrative: Since stated over last couple days she has had urinary frequency and urgency. She thinks she might have a UTI. No home treatment. The patient also stated her blood sugars have been running over 300 today. She does take oral and insulin therapy for diabetes. She denies any signs or symptoms of DKA The patient also stated that she got up too quickly tonight felt lightheaded and had a near syncopal episode. She does not feel lightheaded currently. Denies any chest pain shortness of breath or other symptoms. The patient came in for all 3 complaints. - Past Medical History (1) EMILIO (acute kidney injury) Status: Acute (2) Chest pain Status: Acute (3) Difficulty breathing Status: Acute (4) Hyperglycemia Status: Acute (5) Neck pain Status: Acute (6) Anxiety Status: Chronic (7) Anxiety and depression Status: Chronic (8) COPD (chronic obstructive pulmonary disease) Status: Chronic (9) Depression Status: Chronic (10) Former tobacco use Status: Chronic (11) GERD (gastroesophageal reflux disease) Status: Chronic (12) Hiatal hernia Status: Chronic (13) Hyperlipidemia Status: Chronic (14) Hypertension Status: Chronic (15) Morbid obesity Status: Chronic (16) Morbid obesity Status: Chronic (17) SHARMIN (obstructive sleep apnea) Status: Chronic (18) Status post tracheostomy Status: Chronic (19) Tracheostomy dependence Status: Chronic (20) Type II diabetes mellitus Status: Chronic (21) COPD exacerbation Status: Suspected (22) Acute pancreatitis Status: Resolved (23) Acute respiratory failure Status: Resolved (24) Angioedema Status: Resolved (25) Upper airway obstruction Status: Resolved Past Medical History - Allergies and Home Meds Allergies/Adverse Reactions: Allergies bupropion [From Wellbutrin] Allergy (Verified 02/13/20 23:33) Angioedema lisinopril Allergy (Verified 02/13/20 23:33) Angioedema sulfamethoxazole [From Bactrim] Allergy (Verified 02/13/20 23:33) Rash trimethoprim [From Bactrim] Allergy (Verified 02/13/20 23:33) Rash acetaminophen [From Vicodin] Adverse Reaction (Verified 02/13/20 23:33) Nausea/Vom/Diarrhea aspirin Adverse Reaction (Verified 02/13/20 23:33) Nausea/Vom/Diarrhea hydrocodone [From Vicodin] Adverse Reaction (Verified 08/19/20 23:33) Nausea/Vom/Diarrhea Primary Care Physician: Joaquim Burks DO [Primary Care Provider] - Prior records reviewed: Yes Past Medical History: - - See problem list Surgical History: - - Tracheostomy, cholecystectomy, bilateral tubal ligation, NovaSure, bladder suspension surgery. Smoking Status: Former smoker Alcohol: None Drugs: None - Family History Maternal Family History: Reports: Diabetes, High Cholesterol, Heart Disease, Hypertension Paternal Family History: Reports: Diabetes, High Cholesterol, Heart Disease, Hypertension Review of Systems General: Denies: Chills, Fever, Sweats Eyes: Denies: Visual changes - bilaterally, Diplopia ENT: Denies: Rhinorrhea, Sore throat Cardiovascular: Denies: Chest pain, Palpitations Respiratory: Denies: Dyspnea, Cough, Dyspnea on exertion Gastrointestinal: Denies: Abdominal pain, Nausea, Vomiting, Diarrhea, Melena, Hematochezia Genitourinary: Reports: Frequency. Denies: Dysuria, Hematuria Musculoskeletal: Denies: Back pain, Extremity Pain Skin: Denies: Rash, Wounds Neurological: Denies: Headache, Weakness, Numbness Physical Exam Vital Signs/Narrative: Vital Signs Temp Pulse Resp BP Pulse Ox 02/13/20 23:29 96.5 F L 78 18 144/87 H 97 General: Well nourished, Well developed, No Acute Distress Head: Normocephalic, Atraumatic Eyes: Perrl, EOMI ENT: Moist mucous membranes, No rhinorrhea Neck: Supple, Nontender Cardiovascular: Regular rate, Regular rhythm, No murmurs Respiratory: No distress, CTA bilaterally, Chest nontender Abdomen: Soft, Nontender, Nondistended, Normal bowel sounds Back: Nontender, Normal Inspection Extremities: Nontender, No edema Skin: Normal color, No rash Neurological: Alert, Oriented x3, Cranial nerves II-XII grossly intact, Normal Strength, Normal Sensation Psychological: Normal affect, Normal Mood Diagnostic/Tx/Re-eval - Medical Decision Making IV established given IV fluids. Lab work obtained EKG obtained. EKG shows sinus rhythm at a rate of 69 with no ischemia or arrhythmia unchanged from prior. Blood sugar is 240. After fluids it is likely below 200. I do not feel she needs insulin. Rest of her lab work unremarkable. I feel the patient can be discharged home. She is not in DKA. She will continue to monitor her sugars. She will try to get up slowly she likely had a vasovagal episode of near syncope. Urine showed no evidence of infection ED Disposition - Plan for ED Patient: Disposition: Home or Assisted Living Diagnosis: Near syncope, Diabetes mellitus with hyperglycemia Instructions: ED Diabetic Hyperglycemia Referrals: Joaquim Burks DO [Primary Care Provider] -
[2020-02-13 23:54] LABS: Bacteria 0 SEEN /hpf (None Seen); Mucous, Urine 0 SEEN /hpf (<or=2+); Squamous Epithelial Cells - UA 0 SEEN /hpf (5-10); White Blood Cells 0 SEEN /hpf (0-5)
[2020-02-14 00:01] VITALS: BP 144/87; PULSE 78; RESP 18; TEMP 35.8; O2SAT 97
[2020-02-14 00:02] LABS: Color, Urine Yellow (Yellow); Glucose, Dipstick 250 mg/dl (Normal); Ketone-Dipstick 5 mg/dl (Negative); Leukocyte Esterase-Dipstick Negative /ul (Negative); Nitrite-Dipstick Negative (Negative); Occult Blood-Urine 250 /ul (Negative); Protein-Dipstick 30 mg/dl (Negative); Specific Gravity, Urine 1.025 (1.002-1.030); Urine Bilirubin Dipstick Negative (Negative); Urine Clarity Clear (Clear); Urine Urobilinogen Normal (Normal)
[2020-02-14 00:14] LABS: Red Blood Cells-Urine 5-10 SEEN /hpf (0-5)
[2020-02-14 00:35] LABS: ALB/GLOB Ratio 0.9 RATIO (0.9-2.4); AST(SGOT) 20 U/L (15-37); Alanine Aminotransfer ALT/SGPT 27 U/L (13-56); Albumin, Serum 3.5 g/dL (3.2-5.0); Alkaline Phosphatase 112 U/L (45-117); Anion Gap 6 (5-15); BUN 18 mg/dL (7-18); BUN/Creat Ratio 19.4 RATIO (10-20); Calcium,Total 8.9 mg/dL (8.5-10.1); Chloride 107 mmol/L (98-107); Creatinine, Serum 0.93 mg/dL (0.55-1.02); EST Glomerular Filtration Rate 67 mL/min (>60); Est Glom Filt Rate - Afr Amer 81 mL/min (>60); Estimated Creatinine Clearance 62.23 ml/min; Globulin 3.7 g/dL (2.2-4.2); Glucose 243 mg/dL (74-106); Potassium 3.8 mmol/L (3.5-5.1); Protein, Total 7.2 g/dL (6.4-8.2); Sodium Level 137 mmol/L (136-145)
[2020-02-14 01:20] VITALS: BP 135/78; PULSE 72; RESP 18; O2SAT 97
== END 2020-02-14 01:21 | disposition home or self-care (01) ==
PROVIDERS: Emergency Provider Emergency Medicine; PCP Student in an Organized Health Care Education/Training Program
DX: E11.65 Type 2 diabetes mellitus with hyperglycemia (principal); R55 Syncope and collapse; F41.9 Anxiety disorder, unspecified; F32.9 Major depressive disorder, single episode, unspecified; J44.9 Chronic obstructive pulmonary disease, unspecified; K21.9 Gastro-esophageal reflux disease without esophagitis; K44.9 Diaphragmatic hernia without obstruction or gangrene; E78.5 Hyperlipidemia, unspecified; I10 Essential (primary) hypertension; E66.01 Morbid (severe) obesity due to excess calories; G47.33 Obstructive sleep apnea (adult) (pediatric); Z87.09 Personal history of other diseases of the respiratory system; Z87.448 Personal history of other diseases of urinary system; Z87.19 Personal history of other diseases of the digestive system; Z79.84 Long term (current) use of oral hypoglycemic drugs; Z79.899 Other long term (current) drug therapy; Z87.891 Personal history of nicotine dependence
CPT/HCPCS: 80053; 81001; 93005; 96360; 99284; J7030

== ENCOUNTER 2020-03-14 19:50 | Observation (INO) | payer MEDICARE, MEDICAID, SELFPAY ==
[2020-02-27 13:45] VITALS: BMI 43.3
[2020-03-14 19:51] VITALS: BP 158/99; PULSE 87; RESP 18; TEMP 36.8; O2SAT 97; BMI 43.4
[2020-03-14 20:04] VITALS: BP 186/94; PULSE 83; RESP 18; O2SAT 96
[2020-03-14] MEDS: MethylPREDNISolone 125 MG/2 ML Vial IV (20:40)
[2020-03-14] MEDS: DiphenhydrAMINE 50 MG/ML Syringe 25 MG IV (20:41)
[2020-03-14] MEDS: Famotidine 200 MG/20 ML MDV 20 MG in 0.9% Normal Saline (Pres. free 8 ML 300 MG IV (20:50)
[2020-03-14 20:55] LABS: Absolute Lymphocyte Count 2.51 X10^3/uL (0.83-4.51); Absolute Neutrophil Count 3.8 X10^3/uL (2.0-7.7); Basophil# 0.07 X10^3/uL; Eosinophil# 0.18 X10^3/uL; Eosinophils% 2.5 % (0-5); Lymphocyte # 2.51 X10^3/ul (4.0); Lymphocyte % 34.4 % (19-41); Mean Corp Hgb Conc 34.9 g/dL (32-36); Mean Corpuscular Hgb 30.9 pg (27.0-32.0); Mean Corpuscular Volume 88.7 fL (81-99); Mean Platelet Vol. 11.2 fl (6.2-12.0); Monocyte# 0.65 X10^3/uL; Monocyte% 8.9 % (0-10); NRBC Flagged by Analyzer 0 % (0-5); Neutrophil # 3.81 X10^3/uL (2.7-7.7); Neutrophil % 52.2 % (47-70); Platelet Count 232 K/mm3 (150-450); RBC Distribution Width CV 12.6 % (11.6-14.6); Red Blood Count 4.85 M/mm3 (4.2-5.4); White Blood Count 7.3 K/mm3 (4.4-11.0)
[2020-03-14 21:12] LABS: Anion Gap 9 (5-15); BUN 21 mg/dL (7-18); BUN/Creat Ratio 17.1 RATIO (10-20); Calcium,Total 9.3 mg/dL (8.5-10.1); Chloride 102 mmol/L (98-107); Creatinine, Serum 1.23 mg/dL (0.55-1.02); EST Glomerular Filtration Rate 48 mL/min (>60); Est Glom Filt Rate - Afr Amer 58 mL/min (>60); Glucose 239 mg/dL (74-106); Potassium 3.9 mmol/L (3.5-5.1); Sodium Level 136 mmol/L (136-145)
[2020-03-14 21:38] VITALS: BP 158/87; PULSE 81; RESP 19; O2SAT 94
--- NOTE | 2020-03-14 22:32 | ED.DCSUM_ITS ---
- ER Visit Summary Date of Service: 03/14/20 Chief Complaint: Tongue swelling History of Present Illness: The patient is a 55 F presenting with tongue swelling. Patient states this started today. She feels that her tongue is swollen on the left side of her tongue. She also complains of dizziness with no syncope. She has nausea with no vomiting. She has chronic diarrhea. She recently finished antibiotics for C. difficile. She states her diarrhea has improved. She denies fever, chest pain, shortness of breath. She has a history of angioedema. 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 Physical Examination: Vitals are stable. Patient is afebrile. Alert no acute distress. HEENT exam mild left-sided tongue swelling. No pharyngeal edema. Neck is supple. Lungs are clear and equal bilaterally. Heart is regular rate and rhythm. Abdomen is soft nontender nondistended. Extremities are unremarkable. Skin is warm and dry. No rash No focal neurologic deficit. Remainder of exam is unremarkable. Emergency Department Course and Treatment: Patient was given Solu-Medrol, Benadryl, Pepcid. She was observed in the ED. She was given TXA. CBC, chemistries unremarkable. She continues to remain stable and is protecting her airway. Her tongue swelling has not worsened. Will discuss with the hospitalist for observation. While in the emergency department patient began complaining of chest pain. Chest pain is reproducible to palpation. Her EKG is normal sinus rhythm rate of 84 with no acute ischemic changes. She will be admitted to telemetry. Disposition: Observation Impression: Tongue swelling, history of angioedema This note was generated with [employer] dictation software. It may contain incorrect words, spelling, and punctuation that were not noted in review of the chart prior to signing ED Disposition - Plan for ED Patient:
--- NOTE | 2020-03-14 22:45 | PCM.HP.STD ---
Problem List (1) Chest pain Status: Acute Qualifiers: Chest pain type: unspecified Qualified Code(s): R07.9 - Chest pain, unspecified (2) Morbid obesity Status: Chronic (3) SHARMIN (obstructive sleep apnea) Status: Chronic (4) Former tobacco use Status: Chronic (5) Hyperglycemia Status: Acute (6) Hiatal hernia Status: Chronic (7) Tracheostomy dependence Status: Chronic (8) Anxiety Status: Chronic (9) GERD (gastroesophageal reflux disease) Status: Chronic Qualifiers: Esophagitis presence: esophagitis presence not specified Qualified Code(s): K21.9 - Gastro-esophageal reflux disease without esophagitis (10) COPD (chronic obstructive pulmonary disease) Status: Chronic Qualifiers: COPD type: unspecified COPD Qualified Code(s): J44.9 - Chronic obstructive pulmonary disease, unspecified (11) Morbid obesity Status: Chronic (12) Anxiety and depression Status: Chronic (13) Status post tracheostomy Status: Chronic (14) Depression Status: Chronic Qualifiers: Depression Type: unspecified Qualified Code(s): F32.9 - Major depressive disorder, single episode, unspecified (15) Type II diabetes mellitus Status: Chronic Qualifiers: Diabetes mellitus jail insulin use: without terminal supervisor use Diabetes mellitus complication status: with other specified complication Qualified Code(s): E11.69 - Type 2 diabetes mellitus with other specified complication (16) Hyperlipidemia Status: Chronic Qualifiers: Hyperlipidemia type: unspecified Qualified Code(s): E78.5 - Hyperlipidemia, unspecified (17) Hypertension Status: Chronic Qualifiers: Hypertension type: essential hypertension Qualified Code(s): I10 - Essential (primary) hypertension (18) Swollen tongue Status: Acute History of Present Illness Date of Admission: 03/14/20 Chief Complaint: Swelling of left-sided tongue. The patient is a 55 year old F with a significant history of angioedema x4 status post tracheostomy and with tracheostomy reversal; COPD; obstructive sleep apnea; depression anxiety who presents to the emergency department with swelling of her left tongue that began few hours prior to presentation. Associated with her symptoms is odynophagia. Also patient reports that for couple of days she has been having headache which resolved with Tylenol. At emergency department patient received Pepcid; Solu-Medrol; and Benadryl. Also she received tranexamic acid. Patient developed reproducible chest pain at the emergency department that she attributes to probable tranexamic acid. Of note patient was admitted on 08/27/2019 and discharged on 08/28/19 for musculoskeletal chest pain. Past Medical History Past Medical History (Chronic Problems): Chronic Problems (Last Reviewed 03/15/20 @ 02:[address] Gerald Lopes MD) Morbid obesity (Chronic) SHARMIN (obstructive sleep apnea) (Chronic) Former tobacco use (Chronic) Hiatal hernia (Chronic) Tracheostomy dependence (Chronic) Anxiety (Chronic) GERD (gastroesophageal reflux disease) (Chronic) COPD (chronic obstructive pulmonary disease) (Chronic) Morbid obesity (Chronic) Anxiety and depression (Chronic) Status post tracheostomy (Chronic) Depression (Chronic) Type II diabetes mellitus (Chronic) Hyperlipidemia (Chronic) Hypertension (Chronic) Medical History: Medical History (Last Reviewed 03/15/20 @ 04:[address] Gerald Lopes MD) Chest pain (Acute) R07.9 Neck pain (Inactive) M54.2 Morbid obesity (Chronic) E66.01 SHARMIN (obstructive sleep apnea) (Chronic) G47.33 Former tobacco use (Chronic) Z87.891 Hyperglycemia (Acute) R73.9 EMILIO (acute kidney injury) (Inactive) N17.9 Hiatal hernia (Chronic) K44.9 Difficulty breathing (Inactive) R06.89 Tracheostomy dependence (Chronic) Z93.0 Anxiety (Chronic) F41.9 GERD (gastroesophageal reflux disease) (Chronic) K21.9 Acute pancreatitis (Inactive) K85.90 COPD exacerbation (Inactive) J44.1 COPD (chronic obstructive pulmonary disease) (Chronic) J44.9 Morbid obesity (Chronic) E66.01 Anxiety and depression (Chronic) F41.8 Upper airway obstruction (Resolved) Acute respiratory failure (Inactive) J96.00 Depression (Chronic) F32.9 Angioedema (Inactive) T78.3XXA Type II diabetes mellitus (Chronic) E11.9 Hyperlipidemia (Chronic) E78.5 Hypertension (Chronic) I10 Allergies bupropion [From Wellbutrin] Allergy (Verified 03/14/20 19:53) Angioedema lisinopril Allergy (Verified 03/14/20 19:53) Angioedema sulfamethoxazole [From Bactrim] Allergy (Verified 03/14/20 19:53) Rash trimethoprim [From Bactrim] Allergy (Verified 03/14/20 19:53) Rash acetaminophen [From Vicodin] Adverse Reaction (Verified 03/14/20 19:53) Nausea/Vom/Diarrhea aspirin Adverse Reaction (Verified 03/14/20 19:53) Nausea/Vom/Diarrhea hydrocodone [From Vicodin] Adverse Reaction (Verified 03/14/20 19:53) Nausea/Vom/Diarrhea Home Medications: Ambulatory Orders Medication Instructions Recorded Loratadine [Claritin] 10 mg PO DAILY 12/16/16 Glimepiride [Amaryl] 4 mg PO BID 05/25/17 Lansoprazole 30 mg PO DAILY 07/06/18 Buspirone HCl 10 mg PO TID 02/20/19 Spironolactone 50 mg PO DAILY 02/20/19 Albuterol IH (ProAir) [Proair Hfa] 2 puff INHALATION Q4H PRN PRN 03/16/19 Atenolol [Tenormin (beta haley)] 100 mg PO DAILY 07/10/19 Insulin Glargine [Lantus SoloStar 10 units SUBCUT QHS 07/10/19 Pen] Lorazepam [Ativan] 0.5 mg PO BID PRN PRN 09/14/19 Escitalopram Oxalate 20 mg PO DAILY 11/08/19 Zolpidem Tartrate [Ambien 5 mg PO QHS 03/15/20 (Generic)] Surgical History: Surgical History (Last Reviewed 03/15/20 @ 04:[address] Gerald Lopes MD) Status post tracheostomy (Chronic) Z93.0 S/P laparoscopic cholecystectomy Z90.49 S/P tubal ligation Z98.51 s/p bladder sling s/p novasure Surgical History: - - Tracheostomy, cholecystectomy, bilateral tubal ligation, NovaSure, bladder suspension surgery. 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 Denies: Sinus Congestion, Sinus Drainage Cardiovascular: Reports: Chest Pain. Denies: Palpitations Respiratory: Denies: Cough, Shortness of breath at rest, Sputum production Gastrointestinal: Denies: Abdominal Pain, Nausea, Vomiting Genitourinary: Denies: Dysuria Musculoskeletal: Denies: Joint Pain, Joint Tenderness Skin: Denies: Rash, Wounds Neurological: Denies: Numbness, Tingling, Focal weakness Psychiatric: Denies: Anxiety, Depression, Homicidal Ideations, Suicidal Ideations Hematologic/ Lymphatic: Denies: Easy Bruising, Easy Bleeding VTE Information - Inpt Only VTE Present on Admission: No VTE Mechan Device Prophylaxis: None VTE Pharm Prophylaxis ordered?: Yes Patient Problems: Active and Suspected Problems (Last Reviewed 03/15/20 @ 02:[address] Gerald Lopes MD) Swollen tongue (Acute) - Physical Exam Vitals/I&O's: Vital Signs Temp Pulse Resp BP Pulse Ox 98.3 F 81 19 H 158/87 H 94 03/14/20 19:51 03/14/20 21:38 03/14/20 21:38 03/14/20 21:38 03/14/20 21:38 Oxygen Delivery Method Room Air Weight: 118.388 kg Body Mass Index (BMI) 43.4 Finger Stick Blood Glucose 382 Intake and Output for Last 24 Hours 03/12/20 03/13/20 03/14/20 23:59 23:59 23:59 Intake Total 120 / 120 Balance 120 / 120 General: Alert, Oriented x3, Cooperative HEENT: Atraumatic, PERRLA, EOMI, Normocephalic Neck: Supple, No JVD, Negative Carotid Bruits Lungs: Clear to auscultation, Normal air movement Cardiovascular: Regular rate, Regular Rhythm, Normal S1, Normal S2, No murmurs Abdomen: Bowel Sounds Present, Soft, Non Tender Extremities: No edema, Capillary Refill Less than 3 Seconds Skin: No rashes, No breakdown Musculoskeletal: No Tenderness to Palpation of Joints or Extremities Neurological: Cranial nerves II-XII grossly intact Psych/Mental Status: Depressed Laboratory Results 03/14/20 20:40: WBC 7.3, RBC 4.85, Hgb 15.0, Hct 43.0, MCV 88.7, MCH 30.9, MCHC 34.9, RDW Std Deviation 41.0, RDW Coeff of [place] 12.6, Plt Count 232, MPV 11.2, Immature Gran % (Auto) 1.000 H, Neut % (Auto) 52.2, Lymph % (Auto) 34.4, [place] % (Auto) 8.9, Eos % (Auto) 2.5, Baso % (Auto) 1.0, Absolute Neuts (auto) 3.8, Absolute Lymphs (auto) 2.51, Nucleated RBC % 0 03/14/20 20:40: Sodium 136, Potassium 3.9, Chloride 102, Carbon Dioxide 25.0, Anion Gap 9, BUN 21 H, Creatinine 1.23 H, Estim Creat Clear Calc 46.50, Est GFR (MDRD) Af Amer 58 L, Est GFR (MDRD) Non-Af 48 L, BUN/Creatinine Ratio 17.1, Glucose 239 H, Calcium 9.3 Assessment/Plan All Active Problems (Last Reviewed 03/15/20 @ 02:[address] Gerald Lopes MD) Swollen tongue (Acute) Chest pain (Acute) Hyperglycemia (Acute) Upper airway obstruction (Resolved) The patient is a 55 year old F with a significant history of angioedema x4 status post tracheostomy and with tracheostomy reversal; COPD; obstructive sleep apnea; depression anxiety who presents to the emergency department with swelling of her left tongue; odynophagia; headache; and chest pain which started while at the emergency department. Swelling of tongue Received Solu-Medrol; Benadryl and Pepcid emergency department. Scheduled loratadine; Pepcid and prednisone ordered. PRN Benadryl IV and epinephrine IM ordered We will observe at the progressive care unit. Diabetes mellitus with hyperglycemia. Lantus continued Accu-Chek q. before meals give correction scale insulin ordered. Anticipate that with steroids her blood glucose will be elevated. Headaches: Received morphine at emergency department. Oxycodone prn ordered. Morbid obesity: BMI of 43.1. Complicates care. Recommend lifestyle modification. DVT prophylaxis Subcutaneous Lovenox. OBSV E&M: [id number] Initial observation care L2
--- NOTE | 2020-03-14 23:45 | EKG12_ITS ---
Test Reason : CP Blood Pressure : / mmHG Vent. Rate : 084 BPM Atrial Rate : 084 BPM P-R Int : 154 ms QRS Dur : 082 ms QT Int : 370 ms P-R-T Axes : 041 -13 059 degrees QTc Int : 437 ms Normal sinus rhythm Inferior infarct , age undetermined Abnormal ECG Confirmed by TIGRE LEPE, EDUARDO ([id number]), index editor JASPAL TRUJILLO ([id number]) on 03/17/2020 1:51:24 PM Referred By: Confirmed By:EDUARDO LANDEROS MD
--- NOTE | 2020-03-14 23:55 | RAD_ITS ---
STUDY: X-RAY CHEST REASON FOR EXAM: Female, 55 years old. LEFT SIDED TONGUE SWELLING, ALLERGIC REACTION. TECHNIQUE: Single AP portable view of the chest. COMPARISON: 01/21/2020. FINDINGS: The lungs are clear and expanded. There is no demonstrated pleural abnormality. Normal size heart. Normal mediastinum and christy. Normal visualized pulmonary arteries. Normal visualized aortic arch and descending thoracic aorta. There are multilevel degenerative changes of the visualized thoracic spine. Normal visualized ribs, clavicles, and shoulders. There is no demonstrated abnormality of the visualized soft tissue structures of the upper abdomen. RAD/Chest 1 View (Portable) IMPRESSION: No evidence for acute cardiopulmonary pathology. Electronically Signed: Alex Askew MD at 1:02 EDT , Service support ,
[2020-03-15] VITALS (9 sets, daily range): BP systolic 142–184; BP diastolic 68–99; PULSE 64–91; RESP 15–16; TEMP 36.5–36.7; O2SAT 93–97; BMI 43.4; BMI 43.1
[2020-03-15] MEDS: Ondansetron 4 MG/2 ML Vial IV (00:33)
[2020-03-15] MEDS: Morphine 4 MG/ML Syringe IV (00:36)
[2020-03-15] MEDS: Acetaminophen 325 MG Tablet 650 MG PO ×2 (02:00→10:10)
[2020-03-15] MEDS: Loratadine 10 MG Tablet PO (03:38)
[2020-03-15] MEDS: oxyCODONE 5 MG Tablet PO (03:47)
[2020-03-15] MEDS: busPIRone 5 MG Tablet 10 MG PO (05:50)
[2020-03-15] MEDS: DiphenhydrAMINE 50 MG/ML Syringe 25 MG IV (05:54)
--- NOTE | 2020-03-15 05:55 | NURSING ---
pt stated she feels as if her throat is slightly swollen and that it was difficult to swallow her am pill, prn benadryl given
[2020-03-15] MEDS: Insulin Lispro 100 UNIT/ML INSULN.PEN SC ×2 (06:50→11:54)
[2020-03-15 07:11] LABS: Bedside Glucose 396 mg/dL (70-110)
[2020-03-15] MEDS: Escitalopram Oxalate 20 MG Tablet PO (08:07)
[2020-03-15] MEDS: Atenolol 100 MG Tablet PO (08:07)
[2020-03-15] MEDS: Glimepiride 4 MG Tablet PO (08:08)
[2020-03-15] MEDS: Pantoprazole Sodium 40 MG Tablet PO (08:09)
[2020-03-15] MEDS: Enoxaparin 40 MG/0.4 ML Syringe SC (08:09)
[2020-03-15] MEDS: predniSONE 20 MG Tablet 40 MG PO (08:09)
[2020-03-15] MEDS: Famotidine 20 MG Tablet PO (08:09)
[2020-03-15] MEDS: Spironolactone 50 MG Tablet PO (08:10)
[2020-03-15 08:49] LABS: Basophil# 0.04 X10^3/uL; Basophil% 0.4 % (0-1); Hematocrit 42.6 % (37-47); Hemoglobin 14.4 g/dL (12.0-15.0); Mean Corp Hgb Conc 33.8 g/dL (32-36); Mean Corpuscular Hgb 30.4 pg (27.0-32.0); Mean Corpuscular Volume 89.9 fL (81-99); Mean Platelet Vol. 11.5 fl (6.2-12.0); Monocyte# 0.17 X10^3/uL; Monocyte% 1.5 % (0-10); NRBC Flagged by Analyzer 0 % (0-5); Neutrophil # 10.04 X10^3/uL (2.7-7.7); Neutrophil % 88.8 % (47-70); Platelet Count 221 K/mm3 (150-450); RBC Distribution Width CV 12.5 % (11.6-14.6); RBC Distribution Width SD 41.1 fl (35.1-43.9); Red Blood Count 4.74 M/mm3 (4.2-5.4); White Blood Count 11.3 K/mm3 (4.4-11.0)
[2020-03-15 09:03] LABS: ALB/GLOB Ratio 0.9 RATIO (0.9-2.4); AST(SGOT) 21 U/L (15-37); Alanine Aminotransfer ALT/SGPT 30 U/L (13-56); Albumin, Serum 3.7 g/dL (3.2-5.0); Alkaline Phosphatase 115 U/L (45-117); Anion Gap 7 (5-15); BUN 24 mg/dL (7-18); BUN/Creat Ratio 18.8 RATIO (10-20); Calcium,Total 9.6 mg/dL (8.5-10.1); Chloride 100 mmol/L (98-107); Creatinine, Serum 1.28 mg/dL (0.55-1.02); EST Glomerular Filtration Rate 46 mL/min (>60); Est Glom Filt Rate - Afr Amer 56 mL/min (>60); Estimated Creatinine Clearance 44.69 ml/min; Globulin 4.2 g/dL (2.2-4.2); Glucose 336 mg/dL (74-106); Protein, Total 7.9 g/dL (6.4-8.2); Sodium Level 132 mmol/L (136-145)
[2020-03-15 12:31] LABS: Bedside Glucose 343 mg/dL (70-110)
--- NOTE | 2020-03-15 12:54 | DCINST_ITS ---
- Discharge Diagnoses Current Active Problems: Current Active and Chronic Problems (Last Reviewed 03/15/20 @ 04:[address] Gerald Lopes MD) Swollen tongue (Acute) You will use the following diet at home:: Cardiac Your food should be the consistency of: Regular Your liquids should be the consistency of: Regular/Thin Discharge Activity: Return to Normal Activity Additional Instructions: Talk to your family medicine physician about obtaining referral to an blister rust eradicator within the [facility] system. Allergies/Adverse Reactions: Allergies bupropion [From Wellbutrin] Allergy (Verified 03/14/20 19:53) Angioedema lisinopril Allergy (Verified 03/14/20 19:53) Angioedema sulfamethoxazole [From Bactrim] Allergy (Verified 03/14/20 19:53) Rash trimethoprim [From Bactrim] Allergy (Verified 03/14/20 19:53) Rash acetaminophen [From Vicodin] Adverse Reaction (Verified 03/14/20 19:53) Nausea/Vom/Diarrhea aspirin Adverse Reaction (Verified 03/14/20 19:53) Nausea/Vom/Diarrhea hydrocodone [From Vicodin] Adverse Reaction (Verified 03/14/20 19:53) Nausea/Vom/Diarrhea Medications to take at Discharge Loratadine [Claritin] 10 mg PO DAILY 12/16/16 Glimepiride [Amaryl] 4 mg PO BID 05/25/17 Lansoprazole 30 mg PO DAILY 07/06/18 Buspirone HCl 10 mg PO TID 02/20/19 Spironolactone 50 mg PO DAILY 02/20/19 Albuterol IH (ProAir) [Proair Hfa] 2 puff INHALATION Q4H PRN PRN 03/16/19 Atenolol [Tenormin (beta haley)] 100 mg PO DAILY 07/10/19 Insulin Glargine [Lantus SoloStar Pen] 10 units SUBCUT QHS 07/10/19 Lorazepam [Ativan] 0.5 mg PO BID PRN PRN 09/14/19 Escitalopram Oxalate 20 mg PO DAILY 11/08/19 Zolpidem Tartrate [Ambien] 5 mg PO QHS 03/15/20 predniSONE tablet 40 mg PO DAILY@0800 #10 tab 03/15/20 The following prescriptions were given: predniSONE tablet 40 mg PO DAILY@0800 #10 tab Transmission Status: Pending to [facility]/pharmacy #[id number] Primary Care Physician: Joaquim Burks DO [Primary Care Provider] - Please follow up with your Primary Care Physician in: 1 week Test Results: Test results from this visit will be discussed in further detail at your follow- up appointment, if applicable. Proposed Discharge Date: 03/15/20
--- NOTE | 2020-03-15 12:56 | DS.PCM_ITS ---
<Carter Valencia - Last Filed: 03/15/20 12:56> Discharge Date and Diagnosis Date of Admission: 03/14/20 Date of Discharge: 03/15/20 - Primary Discharge Diagnosis Acute Problems: Active Problems (Last Reviewed 03/15/20 @ 04:[address] Gerald Lopes MD) Angioedema, unclear cause, recurrent, possibly idiopathic - Secondary Discharge Diagnosis Chronic Problems: Chronic Problems (Last Reviewed 03/15/20 @ 04:[address] Gerald Lopes MD) Morbid obesity (Chronic) SHARMIN (obstructive sleep apnea) (Chronic) Former tobacco use (Chronic) Hiatal hernia (Chronic) Tracheostomy dependence (Chronic) Anxiety (Chronic) GERD (gastroesophageal reflux disease) (Chronic) COPD (chronic obstructive pulmonary disease) (Chronic) Morbid obesity (Chronic) Anxiety and depression (Chronic) Status post tracheostomy (Chronic) Depression (Chronic) Type II diabetes mellitus (Chronic) Hyperlipidemia (Chronic) Hypertension (Chronic) Hospital Course and Treatment Imaging Results: RAD/Chest 1 View (Portable) IMPRESSION: No evidence for acute cardiopulmonary pathology. Operations: None Procedures: None Summary of Care Provided: Hospital Course: The patient is a 55 year old F with pmhx as above notably recurrent angioedema with no clear etiology, who presented to the ER with c/o tongue swelling c/w prior episodes. She did not have respiratory distress. She was given solumedrol, pepcid and benadryl. The following morning she had no further symptoms. She was transitioned to PO prednisone. She will continue daily loratidine. We have advised her to talk to her PCP regarding referral to an accounts administrator within the [facility] for further workup. She was discharged home in stable condition. No offending home medications were identified that would be responsible for this episode. This patient was seen by Carter Valencia PA-C under the supervision of Dr. Goff. [] - Physical Exam Vitals/I&O's: Vital Signs Temp Pulse Resp BP Pulse Ox 98.1 F 79 16 142/68 H 95 03/15/20 08:00 03/15/20 08:00 03/15/20 08:00 03/15/20 08:00 03/15/20 11:56 Oxygen Flow Rate (L/min) 2 Oxygen Delivery Method Room Air Weight: 259 lb 4.218 oz Body Mass Index (BMI) 43.1 Finger Stick Blood Glucose 382 Intake and Output for Last 24 Hours 03/13/20 03/14/20 03/15/20 23:59 23:59 23:59 Intake Total 120 / 120 440 / 440 Balance 120 / 120 440 / 440 General: Alert, Oriented x3, Cooperative HEENT: Atraumatic, PERRLA, EOMI, Normocephalic Neck: Supple, No JVD, Negative Carotid Bruits Lungs: Clear to auscultation, Normal air movement Cardiovascular: Regular rate, No murmurs Abdomen: Bowel Sounds Present, Soft, Non Tender Extremities: No edema, Capillary Refill Less than 3 Seconds Skin: No rashes, No breakdown Musculoskeletal: No Tenderness to Palpation of Joints or Extremities Neurological: Cranial nerves II-XII grossly intact Psych/Mental Status: Normal Affect, Appropriate, Alert and oriented to time, place, person, mood and affect Laboratory Results 03/14/20 20:40: WBC 7.3, RBC 4.85, Hgb 15.0, Hct 43.0, MCV 88.7, MCH 30.9, MCHC 34.9, RDW Std Deviation 41.0, RDW Coeff of Cecil 12.6, Plt Count 232, MPV 11.2, Immature Gran % (Auto) 1.000 H, Neut % (Auto) 52.2, Lymph % (Auto) 34.4, Crook % (Auto) 8.9, Eos % (Auto) 2.5, Baso % (Auto) 1.0, Absolute Neuts (auto) 3.8, Absolute Lymphs (auto) 2.51, Nucleated RBC % 0 03/14/20 20:40: Sodium 136, Potassium 3.9, Chloride 102, Carbon Dioxide 25.0, Anion Gap 9, BUN 21 H, Creatinine 1.23 H, Estim Creat Clear Calc 46.50, Est GFR (MDRD) Af Amer 58 L, Est GFR (MDRD) Non-Af 48 L, BUN/Creatinine Ratio 17.1, Glucose 239 H, Calcium 9.3 03/15/20 06:46: POC Glucose 396 H 03/15/20 08:38: WBC 11.3 H, RBC 4.74, Hgb 14.4, Hct 42.6, MCV 89.9, MCH 30.4, MCHC 33.8, RDW Std Deviation 41.1, RDW Coeff of Cecil 12.5, Plt Count 221, MPV 11.5, Immature Gran % (Auto) 1.300 H, Neut % (Auto) 88.8 H, Lymph % (Auto) 8.0 L , Crook % (Auto) 1.5, Eos % (Auto) 0.0, Baso % (Auto) 0.4, Absolute Neuts (auto) 10.0 H, Absolute Lymphs (auto) 0.90, Nucleated RBC % 0 03/15/20 08:38: Sodium 132 L, Potassium 5.0, Chloride 100, Carbon Dioxide 25.0, Anion Gap 7, BUN 24 H, Creatinine 1.28 H, Estim Creat Clear Calc 44.69, Est GFR (MDRD) Af Amer 56 L, Est GFR (MDRD) Non-Af 46 L, BUN/Creatinine Ratio 18.8, Glucose 336 H, Calcium 9.6, Total Bilirubin 0.30, AST 21, ALT 30, Alkaline Phosphatase 115, Total Protein 7.9, Albumin 3.7, Globulin 4.2, Albumin/Globulin Ratio 0.9 03/15/20 11:52: POC Glucose 343 H Current Medications Acetaminophen (Tylenol) 650 mg PO Q6H PRN PRN PRN Reason: Pain Score 1-10/Temp > 100.7 F Last Admin: 03/15/20 10:10 Dose: 650 mg Documented by: Albuterol Sulfate (Ventolin Aerosols) 2.5 mg INHALATION Q2H PRN PRN PRN Reason: SOB/Wheezing Atenolol (Tenormin (Beta Jovanni)) 100 mg PO DAILY ON LICENSE OF [facility] Last Admin: 03/15/20 08:07 Dose: 100 mg Documented by: Buspirone HCl (Buspar) 10 mg PO TID ON LICENSE OF [facility] Last Admin: 03/15/20 05:50 Dose: 10 mg Documented by: Dextrose (D50w Syringe) 0 gm IV X1 PRN; Protocol PRN Reason: Hypoglycemia Diphenhydramine HCl (Benadryl) 25 mg IV Q6H PRN PRN PRN Reason: ALLERGIC RXN Last Admin: 03/15/20 05:54 Dose: 25 mg Documented by: Enoxaparin Sodium (Lovenox) 40 mg SC DAILY ON LICENSE OF [facility] Last Admin: 03/15/20 08:09 Dose: 40 mg Documented by: Epinephrine HCl (Symjepi) 0.3 mg IM X1 PRN PRN Reason: Anaphylaxis Escitalopram Oxalate (Lexapro) 20 mg PO DAILY ON LICENSE OF [facility] Last Admin: 03/15/20 08:07 Dose: 20 mg Documented by: Famotidine (Pepcid) 20 mg PO DAILY ON LICENSE OF [facility] Last Admin: 03/15/20 08:09 Dose: 20 mg Documented by: Glimepiride (Amaryl) 4 mg PO BIDCM ON LICENSE OF [facility] Last Admin: 03/15/20 08:08 Dose: 4 mg Documented by: Glucagon () 1 mg IM .X1 PRN PRN Reason: Hypoglycemia Insulin Glargine (Lantus ([facility])) 10 units SC QHS ON LICENSE OF [facility] Last Admin: 03/15/20 03:39 Dose: 10 units Documented by: Insulin Human Lispro (Humalog Kwikpen ([facility])) 0 unit SC [facility] ON LICENSE OF [facility]; Protocol Last Admin: 03/15/20 11:54 Dose: 8 units Documented by: Loratadine (Claritin) 10 mg PO DAILY ON LICENSE OF [facility] Last Admin: 03/15/20 03:38 Dose: 10 mg Documented by: Lorazepam (Ativan) 0.5 mg PO BID PRN PRN PRN Reason: ANXIETY Melatonin (Melatonin) 3 mg PO QHS PRN PRN PRN Reason: INSOMNIA Oxycodone HCl (Oxyir) 5 mg PO Q6H PRN PRN PRN Reason: Pain Score 6-10/10 Last Admin: 03/15/20 03:47 Dose: 5 mg Documented by: Pantoprazole Sodium (Protonix) 40 mg PO DAILY ON LICENSE OF [facility] Last Admin: 03/15/20 08:09 Dose: 40 mg Documented by: Prednisone () 40 mg PO DAILY@0800 ON LICENSE OF [facility] Last Admin: 03/15/20 08:09 Dose: 40 mg Documented by: Sodium Chloride () 10 - 40 ml IV UD PRN PRN Reason: SALINE FLUSH Spironolactone (Aldactone) 50 mg PO DAILY ON LICENSE OF [facility] Last Admin: 03/15/20 08:10 Dose: 50 mg Documented by: Zolpidem Tartrate (Ambien (Generic)) 5 mg PO QHS ON LICENSE OF [facility] Discharge Diet: Low fat/ Low Cholesterol, 2000 mg Sodium Diet Discharge Activity: Return to Normal Activity Home Medications: Medications to take at Discharge Loratadine [Claritin] 10 mg PO DAILY 12/16/16 Glimepiride [Amaryl] 4 mg PO BID 05/25/17 Lansoprazole 30 mg PO DAILY 07/06/18 Buspirone HCl 10 mg PO TID 02/20/19 Spironolactone 50 mg PO DAILY 02/20/19 Albuterol IH (ProAir) [Proair Hfa] 2 puff INHALATION Q4H PRN PRN 03/16/19 Atenolol [Tenormin (beta jovanni)] 100 mg PO DAILY 07/10/19 Insulin Glargine [Lantus SoloStar Pen] 10 units SUBCUT QHS 07/10/19 Lorazepam [Ativan] 0.5 mg PO BID PRN PRN 09/14/19 Escitalopram Oxalate 20 mg PO DAILY 11/08/19 Zolpidem Tartrate [Ambien] 5 mg PO QHS 03/15/20 predniSONE tablet 40 mg PO DAILY@0800 #10 tab 03/15/20 Following Prescriptions Were Given to Patient: predniSONE tablet 40 mg PO DAILY@0800 #10 tab Transmission Status: Received by [facility]/pharmacy #[id number] Primary Care Physician: Joaquim Burks DO [Primary Care Provider] - Please follow up with your Primary Care Physician in: 1 week Disposition: Home Minutes spent on discharge:: 35 Patient Condition:: Stable Medical Necessity - Tobacco Use Smoking Status: Former smoker Meaningful Use Info Meaningful Use Diagnoses (Choose all that apply): None applicable <[place] - Last Filed: 03/16/20 08:29> Discharge Date and Diagnosis - Secondary Discharge Diagnosis Chronic Problems: Chronic Problems (Last Reviewed 03/15/20 @ 04:[address] Gerald Lopes MD) Morbid obesity (Chronic) SHARMIN (obstructive sleep apnea) (Chronic) Former tobacco use (Chronic) Hiatal hernia (Chronic) Tracheostomy dependence (Chronic) Anxiety (Chronic) GERD (gastroesophageal reflux disease) (Chronic) COPD (chronic obstructive pulmonary disease) (Chronic) Morbid obesity (Chronic) Anxiety and depression (Chronic) Status post tracheostomy (Chronic) Depression (Chronic) Type II diabetes mellitus (Chronic) Hyperlipidemia (Chronic) Hypertension (Chronic) Hospital Course and Treatment Summary of Care Provided: This patient was seen in conjunction with ROSANGELA Toro. I have independently interviewed and examined the patient and reviewed pertinent historical, lab oratory, and other data. Please refer to ROSANGELA Toro note for his patient's presentation, findings, and recommendations. I have reviewed and his note and concur with his documentation 5-year-old with multiple comorbidities significant for recurrent angioedema of unclear etiology. Patient comes in with complaints of left-sided tongue swelling which is similar to her previous episode. She is not on any inciting medications. She was monitored overnight with Solu-Medrol, Pepcid and Benadryl. She had no further symptoms. Her transition to a short course of prednisone. She will will continue to take daily loratadine. Patient will follow-up with her primary care doctor and get a referral to see an accounts administrator. On the day of discharge, patient was seen and examined. Denied any new complaints. She felt much improved. She was ambulated without any worsening oxygen requirement. Physical Exam: Gen: Comfortable, not pale, not jaundiced, not on oxygen, tongue does not look swollen. Pharynx looks normal CVS:HS I +II, regular, no murmurs RESP: Diminished at lung bases GI: BS present and normal, soft, nontender, no palpable organs EXT:No edema - Physical Exam Vitals/I&O's: Vital Signs Temp Pulse Resp BP Pulse Ox 98.1 F 79 16 142/68 H 95 03/15/20 08:00 03/15/20 08:00 03/15/20 08:00 03/15/20 08:00 03/15/20 11:56 Oxygen Flow Rate (L/min) 2 Oxygen Delivery Method Room Air Weight: 117.6 kg Body Mass Index (BMI) 43.1 Finger Stick Blood Glucose 382 Intake and Output for Last 24 Hours 03/14/20 03/15/20 03/16/20 23:59 23:59 23:59 Intake Total 120 / 120 440 / 440 Balance 120 / 120 440 / 440 Laboratory Results 03/15/20 08:38: WBC 11.3 H, RBC 4.74, Hgb 14.4, Hct 42.6, MCV 89.9, MCH 30.4, MCHC 33.8, RDW Std Deviation 41.1, RDW Coeff of Cecil 12.5, Plt Count 221, MPV 11.5, Immature Gran % (Auto) 1.300 H, Neut % (Auto) 88.8 H, Lymph % (Auto) 8.0 L , Crook % (Auto) 1.5, Eos % (Auto) 0.0, Baso % (Auto) 0.4, Absolute Neuts (auto) 10.0 H, Absolute Lymphs (auto) 0.90, Nucleated RBC % 0 03/15/20 08:38: Sodium 132 L, Potassium 5.0, Chloride 100, Carbon Dioxide 25.0, Anion Gap 7, BUN 24 H, Creatinine 1.28 H, Estim Creat Clear Calc 44.69, Est GFR (MDRD) Af Amer 56 L, Est GFR (MDRD) Non-Af 46 L, BUN/Creatinine Ratio 18.8, Glucose 336 H, Calcium 9.6, Total Bilirubin 0.30, AST 21, ALT 30, Alkaline Phosphatase 115, Total Protein 7.9, Albumin 3.7, Globulin 4.2, Albumin/Globulin Ratio 0.9 03/15/20 11:52: POC Glucose 343 H OBSV E&M: [id number] Observation care discharge
== END 2020-03-15 12:55 | disposition home or self-care (01) ==
LOC: ED 20:49 → PCU 03-15 00:19
PROVIDERS: Admitting Provider Hospitalist; Emergency Provider Emergency Medicine; PCP Student in an Organized Health Care Education/Training Program; Visit Provider Internal Medicine
DX: T78.3XXA Angioneurotic edema, initial encounter (principal); E66.01 Morbid (severe) obesity due to excess calories; K21.9 Gastro-esophageal reflux disease without esophagitis; J44.9 Chronic obstructive pulmonary disease, unspecified; G47.33 Obstructive sleep apnea (adult) (pediatric); Z23 Encounter for immunization; F32.9 Major depressive disorder, single episode, unspecified; F41.9 Anxiety disorder, unspecified; E78.5 Hyperlipidemia, unspecified; Z87.891 Personal history of nicotine dependence; Z79.899 Other long term (current) drug therapy; Z79.4 Long term (current) use of insulin; Z68.41 Body mass index [BMI] 40.0-44.9, adult; E11.65 Type 2 diabetes mellitus with hyperglycemia; K44.9 Diaphragmatic hernia without obstruction or gangrene; Z93.0 Tracheostomy status
CPT/HCPCS: 36415; 71045; 80048; 80053; 82962; 85025; 93005; 96365; 96368; 96375; 96376; 99218; 99285; G0008; 90686; G0378; J2405; J3490

== ENCOUNTER → 2020-03-24 14:44 | Outpatient (CLI) | payer MEDICARE, MEDICAID, SELFPAY ==
[2020-03-21 13:58] VITALS: BMI 43.1
--- NOTE | 2020-03-24 14:47 | RAD_ITS ---
HISTORY: kidney stones ADDITIONAL HISTORY: None. COMPARISON: CT 01/14/2020 EXAMINATION/TECHNIQUE: XR Abdomen 1 View Number of images including paperwork: 2 FINDINGS: FREE AIR: None detected. BOWEL GAS PATTERN: Nonobstructive. CALCIFICATIONS: No definite urinary tract calculi. Small renal calculi seen on previous CT are not definitely seen radiographically. ORGANS: No evidence of organomegaly. SOFT TISSUES: Unremarkable. BONES: No acute skeletal findings. LOWER CHEST: Unremarkable visible portions. DEVICES: Tubal ligation clips. Clip also noted in the abdomen to the left of midline. RAD/Abdomen Single View IMPRESSION: No acute abdominal abnormality is radiographically apparent. Small renal calculi seen on previous CT are not definitely seen radiographically. at 0759 Reported and signed by: Bisi Villatoro MD Electronically Signed: Bisi Villatoro MD at 7:59 EDT Tel , Service support ,
== END ==
PROVIDERS: PCP Student in an Organized Health Care Education/Training Program; Referring Provider Urology; Visit Provider Urology
DX: N20.0 Calculus of kidney (principal)
CPT/HCPCS: 74018

== ENCOUNTER 2020-04-07 08:56 | Day surgery (SDC) | payer MEDICARE, MEDICAID, SELFPAY ==
[2020-03-21 13:58] VITALS: BMI 43.1
[2020-04-07] VITALS (7 sets, daily range): BP systolic 116–146; BP diastolic 57–94; PULSE 60–65; RESP 16–18; TEMP 36.1–36.2; O2SAT 92–97; BMI 43.0
--- NOTE | 2020-04-07 08:06 | HP_ITS ---
Intake Vital Signs 03/21/20 BMI 43.1 03/21/20 Height 5 ft 5 in 03/21/20 Weight: 260 lb 03/21/20 BMI 43.2 03/21/20 BP 153/90 H 03/21/20 Blood Pressure Location Rt brachial 03/21/20 Position Sitting 03/21/20 Respiration 18 03/21/20 Pulse 61 03/21/20 Pulse Source Monitor 03/21/20 Temp 97.4 F L 03/21/20 Temp Source Temporal 03/21/20 Pulse Oximetry (%) 98 03/21/20 Oxygen Delivery Method room air Intake Visit Reasons: C-DIFF NEG/Discuss C-Scope Chief Complaint: Discuss c-scope Nut Sheller Required: No Is patient in pain?: No Allergies bupropion [From Wellbutrin] Allergy (Verified 03/21/20 13:57) Angioedema lisinopril Allergy (Verified 03/21/20 13:57) Angioedema sulfamethoxazole [From Bactrim] Allergy (Verified 03/21/20 13:57) Rash trimethoprim [From Bactrim] Allergy (Verified 03/21/20 13:57) Rash acetaminophen [From Vicodin] Adverse Reaction (Verified 03/21/20 13:57) Nausea/Vom/Diarrhea aspirin Adverse Reaction (Verified 03/21/20 13:57) Nausea/Vom/Diarrhea hydrocodone [From Vicodin] Adverse Reaction (Verified 03/21/20 13:57) Nausea/Vom/Diarrhea Medications Loratadine [Claritin] 10 mg PO DAILY 12/16/16 [History Confirmed 03/21/20] Glimepiride [Amaryl] 4 mg PO BID 05/25/17 [History Confirmed 03/21/20] Lansoprazole 30 mg PO DAILY 07/06/18 [History Confirmed 03/21/20] Buspirone HCl 10 mg PO TID 02/20/19 [History Confirmed 03/21/20] Spironolactone 50 mg PO DAILY 02/20/19 [History Confirmed 03/21/20] Albuterol IH (ProAir) [Proair Hfa] 2 puff INHALATION Q4H PRN PRN 03/16/19 [History Confirmed 03/21/20] Atenolol [Tenormin (beta haley)] 100 mg PO DAILY 07/10/19 [History Confirmed 03/21/20] Insulin Glargine [Lantus SoloStar Pen] 10 units SUBCUT QHS 07/10/19 [History Confirmed 03/21/20] Lorazepam [Ativan] 0.5 mg PO BID PRN PRN 09/14/19 [History Confirmed 03/21/20] Escitalopram Oxalate 20 mg PO DAILY 11/08/19 [History Confirmed 03/21/20] Zolpidem Tartrate [Ambien] 5 mg PO QHS 03/15/20 [History Confirmed 03/21/20] predniSONE tablet 40 mg PO DAILY@0800 #10 tab 03/15/20 [Rx Confirmed 03/21/20] [facility] Medical History Chest pain (Acute) Neck pain (Inactive) Morbid obesity (Chronic) SHARMIN (obstructive sleep apnea) (Chronic) Former tobacco use (Chronic) Hyperglycemia (Acute) EMILIO (acute kidney injury) (Inactive) Hiatal hernia (Chronic) Difficulty breathing (Inactive) Tracheostomy dependence (Chronic) Anxiety (Chronic) GERD (gastroesophageal reflux disease) (Chronic) Acute pancreatitis (Inactive) COPD exacerbation (Inactive) COPD (chronic obstructive pulmonary disease) (Chronic) Morbid obesity (Chronic) Anxiety and depression (Chronic) Upper airway obstruction (Resolved) Acute respiratory failure (Inactive) Depression (Chronic) Angioedema (Inactive) Type II diabetes mellitus (Chronic) Hyperlipidemia (Chronic) Hypertension (Chronic) Bloody diarrhea (Acute) C. difficile diarrhea (Acute) Surgical History Status post tracheostomy (Chronic) S/P laparoscopic cholecystectomy (Acute) S/P tubal ligation (Acute) s/p bladder sling (Acute) s/p novasure (Acute) Social History (Updated 03/26/20 @ 11:[address] Florentino Mendoza MD) Smoking Status: Former smoker HPI HPI Surgical H&P: Yes HPI: FER ARORA, is a 55 F who presents to the office today for Reevaluation for her bloody diarrhea. Patient states she has had about a 2-month history of bloody diarrhea she has been seen in the emergency department [facility] numerous times surgical December. She was started on Keflex on January 09 for presumptive urinary tract infection. She had a CAT scan of her abdomen and pelvis on 720 which showed no signs of colitis. She was seen by her primary care physician who obtained stool cultures which came back positive for C. difficile. She subsequently was started on oral vancomycin. She has been treated successfully with her oral vancomycin she still having diarrhea but none of it is bloody at this time. ROS General General: No weight change, appetite, fatigue, colon cancer, breast cancer or weakness HEENT HEENT: No difficulty swallowing, eye injury, eye surgery, swollen glands or hoarseness Endo Endocrine: Yes diabetes mellitus; no thyroid disease, thyroid cancer, Hair loss, heat intolerance or cold intolerance Skin Skin: No rash or changing moles Breast Breast: No left breast lump, right breast lump, nipple discharge, breast pain, abnormal mammogram, abnormal US or breast enlargement Musc Musculoskeletal: Yes arthritis; no back problems, rheumatoid arthritis, gout or joint pain Cardio Cardiovascular: Yes high blood pressure; no murmur, pacemaker, heart disease, atrial fibrillation, heart attack, heart stent, palpitations, shortness of breat with exertion or chest pain Psych Psychiatric: Yes depression and anxiety; no hearing voices Resp Respiratory: Yes shortness of breath, No sleep apnea, No cough, No COPD, Yes asthma, No emphysema, No wheezing Gastro Gastrointestinal: Yes abdominal pain, No nausea or vomiting, Yes diarrhea, No constipation, Yes blood in stool, Yes acid reflux, No hemorrhoids, No ulcers, No gallbladder problem, Yes black,tarry stools Ivan Hematologic: No blood thinners, No blood disorders, Yes bleeding, No anemia, No blood clots Neuro Neurologic: No weakness Exam Const General: no acute distress, well developed, well hydrated Orientation: oriented to person, oriented to place, oriented to time [facility] Head: normocephalic, atraumatic Ears: external ears normal Mouth: moist mucous membranes Eyes Sclera: sclerae normal Pupils: normal by confrontation Neck Neck: no lymphadenopathy noted Neck mass: No Thyroid: thyroid normal, symmetrical Chest Chest palpation & inspection: normal inspection of the chest Breast Palpation: No nipple discharge Resp Effort & Inspection: normal respiratory effort Auscultation: clear to auscultation bilaterally Percussion: percussion normal Cardio Rate: regular rate Rhythm: regular rhythm Heart Sounds: no murmurs GI Palpation: soft, no hepatosplenomegaly, no masses, nontender Rectal Exam: other Other: Rectal exam deferred. Extrem General: normal to inspection, no clubbing, cyanosis or edema Assessment & Plan Problems 1. Intestinal infection due to bacteria causing bloody diarrhea A04.9 2. C. difficile colitis A04.72 Plan I have discussed the above with the patient. I have offered the patient colonoscopy for evaluation. I have explained the risks/benefits of the procedure and described the procedure. I have discussed the risks with the patient, including but not limited to: infection, bleeding, perforation of the GI tract requiring emergency surgery, inability to complete the procedure, injury to any internal organs, complications of anesthesia, etc. - the patient understands and agrees to proceed. I have answered all the patient's questions to the patient's satisfaction and the patient has no further questions. The patient has been given instructions for the colon cleansing preparation. Coding Level of Care Code Off vis,est,level 3 Diagnoses Intestinal infection due to bacteria causing bloody diarrhea A04.9 C. difficile colitis A04.72 COVID (Procedure Consent) Procedure Criteria Procedure Criteria: Yes Elective The surgeon/proceduralist and patient have discussed in detail the risk of exposure to and/or potential harm posed by the COVID-19 virus with having a surgery/procedure at this time versus the risk of? delaying the surgery/procedure. It is not possible to know either the risk of delaying the surgery or procedure or chance of getting an infection with perfect accuracy, but a joint decision was made between the patient and the surgeon/proceduralist ?to proceed at this time with the scheduled surgery/procedure as indicated on the consent form. I have re-examined the patient. There are no clinical changes since date of exam.
[2020-04-07] MEDS: Lactated Ringers 1,000 ML 75 ML IV (09:28)
[2020-04-07 09:40] LABS: Bedside Glucose 282 mg/dL (70-110)
--- NOTE | 2020-04-07 10:31 | OP.CCLET_ITS ---
04/07/2020 Joaquim Burks [address] [phone] Re : Colonoscopy procedure for Kristie French Dear Dr. Burks This procedure was performed on Tuesday, April 07, 2020. My impressions and recommendations are as follows: Impressions : - Diverticulosis in the sigmoid colon. - Non-bleeding internal hemorrhoids. - The examination was otherwise normal. - No specimens collected. Recommendations : - Discharge patient to home. - Resume previous diet. - Continue present medications. - Repeat colonoscopy in 10 years for screening purposes. - Return to primary care physician at appointment to be scheduled. My findings are described in the full procedure note, which is enclosed. If I can be of further assistance, please feel free to contact me at Doctor phone number(s): , Fax: [phone], Work: . Sincerely, MD Florentino Du MD 04/07/2020 10:30:46 AM This report has been signed electronically.
--- NOTE | 2020-04-07 10:31 | OP.COLON_ITS ---
Patient Name: Kristie French Procedure Date: 04/07/2020 10:06 AM Date of : 1965 Age: 55 Procedure: Colonoscopy Indications: Clostridium difficile diarrhea, Rectal bleeding Providers: Florentino Mendoza MD Referring MD: Joaquim Burks Medicines: See the Anesthesia note for documentation of the administered medications Patient Profile: This is a 55 year old female. Refer to note in patient chart for documentation of history and physical. Last Colonoscopy: none. The patient's first colonoscopy is today. Complications: No immediate complications. Procedure: Pre-Anesthesia Assessment: - Prior to the procedure, a History and Physical was performed, and patient medications and allergies were reviewed. The patient's tolerance of previous anesthesia was also reviewed. The risks and benefits of the procedure and the sedation options and risks were discussed with the patient. All questions were answered, and informed consent was obtained. Prior Anticoagulants: The patient has taken no previous anticoagulant or antiplatelet agents. ASA Grade Assessment: II - A patient with mild systemic disease. After reviewing the risks and benefits, the patient was deemed in satisfactory condition to undergo the procedure. After I obtained informed consent, the scope was passed under direct vision. Throughout the procedure, the patient's blood pressure, pulse, and oxygen saturations were monitored continuously. The adult colonoscope was introduced through the anus and advanced to the cecum, identified by appendiceal orifice and ileocecal valve. The colonoscopy was performed without difficulty. The patient tolerated the procedure well. The quality of the bowel preparation was good. Scope In: 10:14:53 AM Scope Withdrawal Time 0 hours 6 minutes 10 seconds Scope Out: 10:26:44 AM Total Procedure Duration Time 0 hours 11 minutes 51 seconds Findings: A few small-mouthed diverticula were found in the sigmoid colon. Non-bleeding internal hemorrhoids were found during retroflexion. The hemorrhoids were mild and small. The exam was otherwise without abnormality. Impression: - Diverticulosis in the sigmoid colon. - Non-bleeding internal hemorrhoids. - The examination was otherwise normal. - No specimens collected. Recommendation: - Discharge patient to home. - Resume previous diet. - Continue present medications. - Repeat colonoscopy in 10 years for screening purposes. - Return to primary care physician at appointment to be scheduled. Procedure Code(s): --- Professional --- 40082, Colonoscopy, flexible; diagnostic, including collection of specimen(s) by brushing or washing, when performed (separate procedure) Diagnosis Code(s): --- Professional --- K64.8, Other hemorrhoids A04.72, Enterocolitis due to Clostridium difficile, not specified as recurrent K62.5, Hemorrhage of anus and rectum K57.30, Diverticulosis of large intestine without perforation or abscess without bleeding CPT copyright 2017 [employer]. All rights reserved. The codes documented in this report are preliminary and upon auditing coder review may be revised to meet current compliance requirements. MD Florentino Du MD 04/07/2020 10:30:46 AM This report has been signed electronically. Number of Addenda: 0 Note Initiated On: 04/07/2020 10:06 AM
== END 2020-04-07 11:12 | disposition home or self-care (01) ==
LOC: EN 08:56 → AC 08:57
PROVIDERS: Anesthesiology; PCP Student in an Organized Health Care Education/Training Program; Referring Provider Student in an Organized Health Care Education/Training Program; Visit Provider Surgery
PROC: 0DJD8ZZ Inspection of Lower Intestinal Tract, Via Natural or Artificial Opening Endoscopic (ICD-10-PCS; CPT 45378; principal; 2020-04-07 09:55)
DX: K64.8 Other hemorrhoids (principal); A04.72 Enterocolitis due to Clostridium difficile, not specified as recurrent; K57.30 Diverticulosis of large intestine without perforation or abscess without bleeding; Z11.59 Encounter for screening for other viral diseases; I10 Essential (primary) hypertension; F41.9 Anxiety disorder, unspecified; K21.9 Gastro-esophageal reflux disease without esophagitis; J44.9 Chronic obstructive pulmonary disease, unspecified; F32.9 Major depressive disorder, single episode, unspecified; E11.9 Type 2 diabetes mellitus without complications; E78.5 Hyperlipidemia, unspecified; E66.01 Morbid (severe) obesity due to excess calories; Z68.41 Body mass index [BMI] 40.0-44.9, adult; G47.33 Obstructive sleep apnea (adult) (pediatric); Z87.19 Personal history of other diseases of the digestive system; Z90.49 Acquired absence of other specified parts of digestive tract; Z79.4 Long term (current) use of insulin; Z79.899 Other long term (current) drug therapy
CPT/HCPCS: 45378; 82962; 87635; C9803; J7120; J1610; J2405; U0003

== ENCOUNTER 2020-05-19 16:56 | Emergency (ER) | payer MEDICARE, MEDICAID, SELFPAY ==
[2020-04-07 09:11] VITALS: BMI 43.0
[2020-05-19 16:57] VITALS: BP 169/84; PULSE 67; RESP 16; TEMP 36.7; O2SAT 93; BMI 44.0
[2020-05-19 17:00] VITALS: BP 169/84; PULSE 67; RESP 16; TEMP 36.7; O2SAT 93; O2SAT 98
--- NOTE | 2020-05-19 17:24 | EKG12_ITS ---
Test Reason : Blood Pressure : / mmHG Vent. Rate : 058 BPM Atrial Rate : 058 BPM P-R Int : 144 ms QRS Dur : 082 ms QT Int : 418 ms P-R-T Axes : -04 -12 017 degrees QTc Int : 410 ms Sinus bradycardia Inferior infarct (cited on or before 14-MAR-2020) Abnormal ECG Confirmed by TIGRE LEPE, EDUARDO ([id number]), newspaper or periodical editor ELFEGO CHAVEZ ([id number]) on 05/21/2020 10:50:51 AM Referred By: GASTON Confirmed By:EDUARDO LANDEROS MD
--- NOTE | 2020-05-19 17:25 | ED.DCSUM_ITS ---
History of Present Illness Chief Complaint: Nausea/Vomiting Informant: Patient Narrative: Patient is a 55-year-old female with a past medical history of diabetes, hypertension, COPD who presents to the emergency department for nausea/vomiting and epigastric abdominal pain. Her symptoms started earlier today. She tried taking Tylenol for pain but this did not help. She currently rates the pain as a 9 out of 10. She does have a known hiatal hernia. She states that she is thrown up 4 times. Last time had some small blood streak in it. No black coffee-ground emesis. She does have chronic diarrhea with no change in bowel movements. She denies any chest pain or shortness of breath. No known sick contacts. No known coronavirus exposure. She denies a cough. No fevers or chills. She has developed a mild headache. Denies any alcohol use. She is a former smoking history. She does have a history of cholecystectomy. Past Medical History - Allergies and Home Meds Allergies/Adverse Reactions: Allergies bupropion [From Wellbutrin] Allergy (Verified 05/19/20 17:01) Angioedema lisinopril Allergy (Verified 05/19/20 17:01) Angioedema sulfamethoxazole [From Bactrim] Allergy (Verified 05/19/20 17:01) Rash trimethoprim [From Bactrim] Allergy (Verified 05/19/20 17:01) Rash acetaminophen [From Vicodin] Adverse Reaction (Verified 05/19/20 17:01) Nausea/Vom/Diarrhea aspirin Adverse Reaction (Verified 05/19/20 17:01) Nausea/Vom/Diarrhea hydrocodone [From Vicodin] Adverse Reaction (Verified 05/19/20 17:01) Nausea/Vom/Diarrhea Primary Care Physician: Joaquim Burks DO [Primary Care Provider] - 3-5 Days Prior records reviewed: Yes Surgical History: - - Tracheostomy, cholecystectomy, bilateral tubal ligation, N ovaSure, bladder suspension surgery. Smoking Status: Former smoker - Family History Maternal Family History: Reports: Diabetes, High Cholesterol, Heart Disease, Hypertension Paternal Family History: Reports: Diabetes, High Cholesterol, Heart Disease, Hypertension Review of Systems All systems negative except as indicated General: Denies: Chills, Fever, Sweats Eyes: Denies: Visual changes - bilaterally, Diplopia ENT: Denies: Rhinorrhea, Sore throat Cardiovascular: Denies: Chest pain, Palpitations Respiratory: Denies: Dyspnea, Cough, Dyspnea on exertion Gastrointestinal: Reports: Abdominal pain, Nausea, Vomiting, Diarrhea. Denies: Melena, Hematochezia Genitourinary: Denies: Dysuria, Hematuria, Frequency Musculoskeletal: Denies: Back pain, Extremity Pain Skin: Denies: Rash, Wounds Neurological: Denies: Headache, Weakness, Numbness Physical Exam Vital Signs/Narrative: Vital Signs Temp Pulse Resp BP Pulse Ox 05/19/20 16:57 98.0 F 67 16 169/84 H 93 Inital Vital Signs reviewed: Yes General: Well nourished, Well developed, No Acute Distress Head: Normocephalic, Atraumatic Eyes: Perrl, EOMI ENT: Moist mucous membranes, No rhinorrhea Neck: Supple, Nontender Cardiovascular: Regular rate, Regular rhythm, No murmurs Respiratory: No distress, CTA bilaterally, Chest nontender Abdomen: Soft, Nondistended, Normal bowel sounds, Tender - Epigastric region, - - No peritoneal signs. No rebound or guarding. Back: Nontender, Normal Inspection Extremities: Nontender, No edema Skin: Normal color, No rash Neurological: Alert, Oriented x3, Cranial nerves II-XII grossly intact, Normal Strength, Normal Sensation Psychological: Normal affect, Normal Mood Diagnostic/Tx/Re-eval - EKG Initial EKG Interpretation: - - Rate 58 bpm in sinus bradycardia. Normal intervals. Normal axis. No ST elevations or depressions. No T wave abnormalities. - Medical Decision Making Patient presents to the emergency department for vomiting. She had some blood streaking in this. 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 She is having some epigastric pain. Will treat symptomatically with Zofran and a GI cocktail. Will check basic lab work. We will send a coronavirus swab. Was is nontoxic-appearing. Vital signs within normal limits except for hypertension. Patient's lab work did not reveal any significant acute abnormality. Lipase within normal limits. Cardiac work-up negative. She is feeling much better after the Zofran and GI cocktail. I do not feel any imaging necessary at this time as she has a benign abdominal exam, negative lab work-up. She is much improved. She does feel comfortable going home at this time. We will have her follow-up with her PCP. Warning signs and symptoms for which to return to the emergency department are reviewed with her. Coronavirus is currently pending. She understands and is agreeable this plan. Discharged home in stable condition. All questions answered. ED Disposition - Plan for ED Patient: Disposition: Home or Assisted Living Diagnosis: Abdominal pain, Nausea & vomiting Instructions: ED Abdominal Pain Unkn Cause Fem, ED Nausea Vomiting Adult Prescriptions: Ondansetron [Zofran Odt] 4 mg PO Q8H PRN PRN #10 tab PRN Reason: Nausea Transmission Status: Received by [id number] Referrals: Joaquim Burks DO [Primary Care Provider] - 3-5 Days
[2020-05-19 18:00] VITALS: BP 146/79; PULSE 69; RESP 15; TEMP 36.7; O2SAT 100
[2020-05-19] MEDS: Ondansetron ODT 4 MG Tablet PO (18:05)
[2020-05-19] MEDS: Mag Hydrox/Al Hydrox/Simeth 30 ML UDC PO (18:06)
[2020-05-19 19:00] VITALS: BP 152/82; PULSE 57; RESP 16; TEMP 36.1; O2SAT 99
[2020-05-19 19:07] LABS: Absolute Lymphocyte Count 1.74 X10^3/uL (0.83-4.51); Absolute Neutrophil Count 5.6 X10^3/uL (2.0-7.7); Basophil# 0.07 X10^3/uL; Basophil% 0.8 % (0-1); Eosinophil# 0.14 X10^3/uL; Eosinophils% 1.7 % (0-5); Hematocrit 43.1 % (37-47); Hemoglobin 14.5 g/dL (12.0-15.0); Lymphocyte # 1.74 X10^3/ul (4.0); Lymphocyte % 21.1 % (19-41); Mean Corp Hgb Conc 33.6 g/dL (32-36); Mean Corpuscular Hgb 30.1 pg (27.0-32.0); Mean Corpuscular Volume 89.4 fL (81-99); Mean Platelet Vol. 11.3 fl (6.2-12.0); Monocyte% 7.3 % (0-10); NRBC Flagged by Analyzer 0 % (0-5); Neutrophil # 5.63 X10^3/uL (2.7-7.7); Neutrophil % 68.4 % (47-70); Platelet Count 204 K/mm3 (150-450); RBC Distribution Width CV 13.2 % (11.6-14.6); RBC Distribution Width SD 43.3 fl (35.1-43.9); Red Blood Count 4.82 M/mm3 (4.2-5.4); White Blood Count 8.2 K/mm3 (4.4-11.0)
[2020-05-19 19:29] LABS: AST(SGOT) 15 U/L (15-37); Alanine Aminotransfer ALT/SGPT 22 U/L (13-56); Albumin, Serum 3.8 g/dL (3.2-5.0); Alkaline Phosphatase 91 U/L (45-117); Anion Gap 7 (5-15); BUN 15 mg/dL (7-18); BUN/Creat Ratio 17.6 RATIO (10-20); Calcium,Total 8.9 mg/dL (8.5-10.1); Chloride 104 mmol/L (98-107); Creatinine, Serum 0.85 mg/dL (0.55-1.02); EST Glomerular Filtration Rate 74 mL/min (>60); Est Glom Filt Rate - Afr Amer 89 mL/min (>60); Estimated Creatinine Clearance 67.29 ml/min; Globulin 3.7 g/dL (2.2-4.2); Glucose 148 mg/dL (74-106); Potassium 3.9 mmol/L (3.5-5.1); Protein, Total 7.5 g/dL (6.4-8.2); Sodium Level 136 mmol/L (136-145)
[2020-05-19 20:14] LABS: Lipase 119 U/L (73-393)
== END 2020-05-19 20:38 | disposition home or self-care (01) ==
PROVIDERS: Emergency Provider Emergency Medicine; PCP Student in an Organized Health Care Education/Training Program
DX: R10.13 Epigastric pain (principal); R11.2 Nausea with vomiting, unspecified; K52.9 Noninfective gastroenteritis and colitis, unspecified; I10 Essential (primary) hypertension; K44.9 Diaphragmatic hernia without obstruction or gangrene; E11.9 Type 2 diabetes mellitus without complications; J44.9 Chronic obstructive pulmonary disease, unspecified; Z90.49 Acquired absence of other specified parts of digestive tract; Z79.4 Long term (current) use of insulin; Z79.899 Other long term (current) drug therapy; Z87.891 Personal history of nicotine dependence
CPT/HCPCS: 36415; 80053; 83690; 84484; 85025; 87635; 93005; 99284; U0003

== ENCOUNTER 2020-08-17 17:29 | Emergency (ER) | payer MEDICARE, MEDICAID, SELFPAY ==
[2020-08-17 17:30] VITALS: BP 159/92; PULSE 66; RESP 18; TEMP 35.7; O2SAT 95; BMI 35.2
--- NOTE | 2020-08-17 18:43 | EKG12_ITS ---
Test Reason : VOMITING Blood Pressure : / mmHG Vent. Rate : 057 BPM Atrial Rate : 057 BPM P-R Int : 140 ms QRS Dur : 082 ms QT Int : 426 ms P-R-T Axes : -09 -03 034 degrees QTc Int : 414 ms Sinus bradycardia Inferior infarct , age undetermined Abnormal ECG Confirmed by TIGRE LEPE, EDUARDO ([id number]), society editor JASPAL TRUJILLO ([id number]) on 08/19/2020 11:34:48 AM Referred By: ZAKI BORREGO Confirmed By:EDUARDO LANDEROS MD
[2020-08-17 19:17] LABS: Absolute Lymphocyte Count 1.61 X10^3/uL (0.83-4.51); Absolute Neutrophil Count 4.2 X10^3/uL (2.0-7.7); Basophil# 0.07 X10^3/uL; Eosinophil# 0.23 X10^3/uL; Eosinophils% 3.4 % (0-5); Hematocrit 43.6 % (37-47); Hemoglobin 14.2 g/dL (12.0-15.0); Lymphocyte # 1.61 X10^3/ul (4.0); Lymphocyte % 23.6 % (19-41); Mean Corp Hgb Conc 32.6 g/dL (32-36); Mean Corpuscular Hgb 29.6 pg (27.0-32.0); Mean Platelet Vol. 11.5 fl (6.2-12.0); Monocyte# 0.68 X10^3/uL; NRBC Flagged by Analyzer 0 % (0-5); Neutrophil # 4.18 X10^3/uL (2.7-7.7); Neutrophil % 61.1 % (47-70); Platelet Count 215 K/mm3 (150-450); RBC Distribution Width CV 12.8 % (11.6-14.6); RBC Distribution Width SD 42.6 fl (35.1-43.9); Red Blood Count 4.79 M/mm3 (4.2-5.4); White Blood Count 6.8 K/mm3 (4.4-11.0)
--- NOTE | 2020-08-17 19:25 | RAD_ITS ---
STUDY: X-RAY CHEST REASON FOR EXAM: Female, 55 years old. N/V/D X 4 DAYS WITH CHILLS. REPORTS VOMITING BLOOD YESTERDAY -- HX OF HTN, LA TECHNIQUE: Single AP portable view of the chest. COMPARISON: 03/14/2020. FINDINGS: The lungs are clear and expanded. There is no demonstrated pleural abnormality. Normal size heart. Normal mediastinum and christy. Normal visualized pulmonary arteries. Normal visualized aortic arch and descending thoracic aorta. Normal visualized thoracic spine. Normal visualized ribs, clavicles, and shoulders. There is no demonstrated abnormality of the visualized soft tissue structures of the upper abdomen. RAD/Chest 1 View (Portable) IMPRESSION: Normal x-ray examination of the chest. Electronically Signed: Tab Wheeler MD at 19:48 EST , Service support ,
[2020-08-17 19:29] VITALS: O2SAT 95
[2020-08-17 19:33] LABS: AST(SGOT) 21 U/L (15-37); Alanine Aminotransfer ALT/SGPT 28 U/L (13-56); Alkaline Phosphatase 95 U/L (45-117); Anion Gap 8 (5-15); BUN 18 mg/dL (7-18); Calcium,Total 9.2 mg/dL (8.5-10.1); Chloride 102 mmol/L (98-107); Creatinine, Serum 0.95 mg/dL (0.55-1.02); EST Glomerular Filtration Rate 65 mL/min (>60); Est Glom Filt Rate - Afr Amer 79 mL/min (>60); Estimated Creatinine Clearance 60.21 ml/min; Globulin 4.2 g/dL (2.2-4.2); Glucose 127 mg/dL (74-106); Potassium 3.9 mmol/L (3.5-5.1); Protein, Total 8.2 g/dL (6.4-8.2); Sodium Level 135 mmol/L (136-145)
[2020-08-17 19:41] LABS: Prothrombin Time (Protime)PT. 12.6 SECONDS (11.7-14.9)
[2020-08-17] MEDS: Morphine 4 MG/ML Syringe IV (21:23)
[2020-08-17 21:29] VITALS: BP 145/92; PULSE 76; RESP 18; O2SAT 94
--- NOTE | 2020-08-17 22:35 | ED.VISSUMM ---
- ER Visit Summary Date of Service: 08/17/20 Chief Complaint: Diarrhea History of Present Illness: The patient is a 55 F who presents with diarrhea for the past 4 days. Patient states her diarrhea is loose and watery. Patient states her abdomen feels bloated. Patient states it is gradually gotten worse. Patient states she did vomit some blood yesterday. Patient denies any hematemesis today. Patient admits to sore throat and ear pain. Patient also admits to some pain in her chest. Patient denies any shortness of breath or cough. Patient also admits to a mild headache. Patient denies any fevers or chills. Physical Examination: Vital signs are stable. Patient is afebrile. Patient is in no acute distress. Oral mucosa is pink and moist. Neck is supple. Trachea is midline. There is no JVD. Heart was regular rate and rhythm. Lungs are clear and equal bilaterally. Abdomen is soft. Bowel sounds are normal. There is no tenderness. There is no guarding. Cranial nerves II through XII are intact. There are no focal motor or sensory deficits noted. Extremities are intact. There is no calf tenderness but there is trace edema. Test Results: EKG was obtained. On my interpretation, there is a sinus rhythm with a rate of 57. There are no acute ST or T wave changes. Portable 1 view chest x-ray was obtained. On my interpretation, lung donald are clear. There is normal cardiac silhouette. Bony thorax is normal. There is no acute process noted. Radiologist also interpreted the x-ray and agrees. CBC was normal. Basic metabolic profile was essentially within normal limits. PT with INR and PTT were normal. Troponin was normal. Covid swab was negative. Influenza swab was negative. Emergency Department Course and Treatment: Patient was given a dose of morphine here. Patient was feeling better on reevaluation. Patient was instructed to follow-up with her primary care physician in 5 to 7 days. Patient understood and was agreeable with the plan. All questions were answered. Disposition: Discharge home Impression: Viral illness This note was generated with [employer] dictation software. It may contain incorrect words, spelling, and punctuation that were not noted in review of the chart prior to signing ED Disposition - Plan for ED Patient: Disposition: Home or Assisted Living Diagnosis: Viral illness Instructions: ED Viral Syndrome (Adult) Referrals: Joaquim Burks, DO [Primary Care Provider] - 3-5 Days
== END 2020-08-17 22:51 | disposition home or self-care (01) ==
PROVIDERS: Emergency Provider Emergency Medicine; PCP Student in an Organized Health Care Education/Training Program
DX: B34.9 Viral infection, unspecified (principal); R19.7 Diarrhea, unspecified; R14.0 Abdominal distension (gaseous); R51.9 Headache, unspecified; H92.09 Otalgia, unspecified ear; J02.9 Acute pharyngitis, unspecified; R07.9 Chest pain, unspecified; R11.2 Nausea with vomiting, unspecified; E66.9 Obesity, unspecified; I10 Essential (primary) hypertension; J44.9 Chronic obstructive pulmonary disease, unspecified; K21.9 Gastro-esophageal reflux disease without esophagitis; E11.9 Type 2 diabetes mellitus without complications; F32.9 Major depressive disorder, single episode, unspecified; F41.9 Anxiety disorder, unspecified; Z79.4 Long term (current) use of insulin; Z79.899 Other long term (current) drug therapy
CPT/HCPCS: 71045; 80053; 84484; 85025; 85610; 85730; 87426; 87804; 93005; 96374; 99282; A4216

== ENCOUNTER → 2020-09-17 09:24 | Outpatient (CLI) | payer MEDICARE, MEDICAID, SELFPAY ==
--- NOTE | 2020-09-17 09:34 | RAD_ITS ---
STUDY: AIR-CONTRAST UPPER GI SERIES AND SMALL BOWEL FOLLOW-THROUGH EXAMINATION. REASON FOR EXAM: Female, 55 years old. DIARRHEA,ABD PAIN FLUOROSCOPY TIME (if supplied): ( 37 seconds. ) minutes/seconds. 16 images were obtained. TECHNIQUE: The patient ingested barium. Multiple images of the esophagus, stomach and duodenum were obtained. Following this, a small bowel follow-through examination was performed. COMPARISON: None. FINDINGS: The esophagus is unremarkable. The stomach and duodenum are unremarkable as well. No ulceration. No evidence of gastric esophageal reflux. A small bowel follow-through examination was then obtained. The transit time is normal. Contrast is seen within the terminal ileum within 60 minutes. No evidence of intrinsic or extrinsic small bowel disease. RAD/Upper GI/w Small Bowel IMPRESSION: Unremarkable air contrast upper GI series and small bowel follow-through examination. Electronically Signed: Kodak David MD at 14:44 EDT , Service support ,
== END ==
PROVIDERS: PCP Student in an Organized Health Care Education/Training Program; Referring Provider Student in an Organized Health Care Education/Training Program; Visit Provider Student in an Organized Health Care Education/Training Program
DX: R19.7 Diarrhea, unspecified (principal); R11.0 Nausea; R10.13 Epigastric pain
CPT/HCPCS: 74246; 74248

== ENCOUNTER 2020-09-21 16:04 | Emergency (ER) | payer MEDICARE, MEDICAID, SELFPAY ==
[2020-09-21 16:06] VITALS: BP 170/102; PULSE 70; RESP 15; TEMP 37.1; O2SAT 97; BMI 43.9
[2020-09-21 16:08] VITALS: BP 170/102; PULSE 68; RESP 15; O2SAT 97
--- NOTE | 2020-09-21 16:29 | EKG12_ITS ---
Test Reason : Blood Pressure : / mmHG Vent. Rate : 065 BPM Atrial Rate : 065 BPM P-R Int : 150 ms QRS Dur : 092 ms QT Int : 398 ms P-R-T Axes : 011 -08 061 degrees QTc Int : 413 ms Normal sinus rhythm Inferior infarct , age undetermined, cannot be excluded Abnormal ECG Confirmed by LILLIAN LEPE, JUWAN ([id number]), content editor JASPAL TRUJILLO ([id number]) on 09/25/2020 9:29:18 AM Referred By: JOSE ANGEL Confirmed By:JUWAN SNYDER MD
--- NOTE | 2020-09-21 16:35 | ED.VIS.GEN ---
History of Present Illness Chief Complaint: Other, Pain/Inj Informant: Patient Narrative: Patient is a 55-year-old female with a past medical history of hypertension, diabetes, COPD who presents to the emergency department for throat swelling. This started 1 hour prior to arrival in the emergency department. She has had this happen multiple times before in the past. 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 She has not been on lisinopril since. She has had other allergic reactions that she is not aware of what caused this. She denies any new exposures this time. She feels like she has some bumps on her upper extremities. She has not taking anything for symptoms at this point. She denies any voice change. No issues handling secretions. No shortness of breath. She does have intermittent chest pain over the past 2 weeks. She currently denying chest pain now. Never she has it is substernal and goes to her back. No known aggravating or relieving factors. Any history of CAD or DVT/PE. No leg swelling or calf pain. Past Medical History - Allergies and Home Meds Allergies/Adverse Reactions: Allergies bupropion [From Wellbutrin] Allergy (Verified 09/21/20 16:05) Angioedema lisinopril Allergy (Verified 09/21/20 16:05) Angioedema sulfamethoxazole [From Bactrim] Allergy (Verified 09/21/20 16:05) Rash trimethoprim [From Bactrim] Allergy (Verified 09/21/20 16:05) Rash acetaminophen [From Vicodin] Adverse Reaction (Verified 09/21/20 16:05) Nausea/Vom/Diarrhea aspirin Adverse Reaction (Verified 09/21/20 16:05) Nausea/Vom/Diarrhea hydrocodone [From Vicodin] Adverse Reaction (Verified 09/21/20 16:05) Nausea/Vom/Diarrhea Primary Care Physician: Joaquim Burks DO [Primary Care Provider] - 1 Day Prior records reviewed: Yes Surgical History: - - Tracheostomy, cholecystectomy, bilateral tubal ligation, NovaSure, bladder suspension surgery. Smoking Status: Former smoker - Family History Maternal Family History: Reports: Diabetes, High Cholesterol, Heart Disease, Hypertension Paternal Family History: Reports: Diabetes, High Cholesterol, Heart Disease, Hypertension Review of Systems All systems negative except as indicated General: Denies: Chills, Fever, Sweats Eyes: Denies: Visual changes - bilaterally, Diplopia ENT: Reports: Sore throat. Denies: Rhinorrhea Cardiovascular: Reports: Chest pain - Currently resolved. Denies: Palpitations Respiratory: Denies: Dyspnea, Cough, Dyspnea on exertion Gastrointestinal: Denies: Abdominal pain, Nausea, Vomiting, Diarrhea, Melena, Hematochezia Genitourinary: Denies: Dysuria, Hematuria, Frequency Musculoskeletal: Denies: Back pain, Extremity Pain Skin: Denies: Rash, Wounds Neurological: Denies: Headache, Weakness, Numbness Physical Exam Vital Signs/Narrative: Vital Signs Temp Pulse Resp BP Pulse Ox 09/21/20 16:08 68 15 170/102 H 97 09/21/20 16:06 98.7 F 70 15 170/102 H 97 Inital Vital Signs reviewed: Yes General: Well nourished, Well developed, No Acute Distress Head: Normocephalic, Atraumatic Eyes: Perrl, EOMI ENT: Moist mucous membranes, No rhinorrhea, - - Clear oropharynx. Uvula midline. No unilateral swelling. Normal voice phonation. No significant swelling underneath the mandible. Neck: Supple, Nontender Cardiovascular: Regular rate, Regular rhythm, No murmurs Respiratory: No distress, CTA bilaterally, Chest nontender Abdomen: Soft, Nontender, Nondistended, Normal bowel sounds Back: Nontender, Normal Inspection Extremities: Nontender, No edema Skin: Normal color, No rash Neurological: Alert, Oriented x3, Cranial nerves II-XII grossly intact, Normal Strength, Normal Sensation Psychological: Normal affect, Normal Mood Diagnostic/Tx/Re-eval Chest X-Ray - ED: 1 View - Single view portable x-ray interpreted by myself. Poor inspiratory effort. Clear lung donald bilaterally. Normal cardiac silhouette. No pleural effusions. No acute cardiopulmonary abnormality. - EKG Initial EKG Interpretation: - - Rate of 65 bpm and normal sinus rhythm. Normal intervals. Normal axis. No significant ST elevations or depressions. No T wave abnormalities. - Medical Decision Making Patient presents to the ED for throat swelling. Upon arrival to the emerge department she does not appear in acute distress. She is handling her secretions well. She does not have any stridor on exam. No evidence of Terri's angina. We will treat this with Solu-Medrol, Pepcid and Benadryl. There is not any known source to cause this swelling. Due to her intermittent chest pain we will also do a cardiac work-up although she is currently asymptomatic with this at this time. Patient was monitored in the emergency department for close to 4 hours. She did not have any worsening symptoms. She feels like she is starting to get slight improvement. She did start to feel like she is getting some tingling in her lips but no swelling. She feels like she is having high blood sugar due to the steroid. Her lab work-up did not reveal any significant acute abnormality with a high white count or anemia. Her creatinine is mildly elevated but has had fluctuating levels in the past. Her glucose is 230. I did offer to do a CT scan of the neck but patient is refusing at this time. She states that she will follow up with her PCP. She is requesting to be discharged at this time. I did advise her to continue to take Benadryl at home. Return precautions are reviewed including any worsening sensation of swelling, difficulty breathing or handling secretions. She is agreeable with this plan. At time of discharge I did do a reevaluation and could not appreciate any obvious signs of swelling of the oropharynx or neck. ED Disposition - Plan for ED Patient: Disposition: Home or Assisted Living Diagnosis: Throat swelling Instructions: ED General Allergic Reactions Referrals: Joaquim Burks DO [Primary Care Provider] - 1 Day
[2020-09-21 16:37] LABS: Absolute Lymphocyte Count 1.77 X10^3/uL (0.83-4.51); Absolute Neutrophil Count 4.7 X10^3/uL (2.0-7.7); Basophil# 0.07 X10^3/uL; Eosinophil# 0.15 X10^3/uL; Eosinophils% 2.1 % (0-5); Hematocrit 45.3 % (37-47); Hemoglobin 15.5 g/dL (12.0-15.0); Lymphocyte # 1.77 X10^3/ul (4.0); Lymphocyte % 24.3 % (19-41); Mean Corp Hgb Conc 34.2 g/dL (32-36); Mean Corpuscular Hgb 31.1 pg (27.0-32.0); Monocyte# 0.55 X10^3/uL; Monocyte% 7.6 % (0-10); NRBC Flagged by Analyzer 0 % (0-5); Neutrophil # 4.67 X10^3/uL (2.7-7.7); Neutrophil % 64.2 % (47-70); Platelet Count 246 K/mm3 (150-450); RBC Distribution Width CV 12.4 % (11.6-14.6); RBC Distribution Width SD 41.3 fl (35.1-43.9); Red Blood Count 4.98 M/mm3 (4.2-5.4); White Blood Count 7.3 K/mm3 (4.4-11.0)
[2020-09-21] MEDS: MethylPREDNISolone 125 MG/2 ML Vial IV (16:50)
[2020-09-21 16:52] LABS: Anion Gap 8 (5-15); BUN 20 mg/dL (7-18); BUN/Creat Ratio 15.2 RATIO (10-20); Calcium,Total 9.4 mg/dL (8.5-10.1); Chloride 100 mmol/L (98-107); Creatinine, Serum 1.32 mg/dL (0.55-1.02); EST Glomerular Filtration Rate 44 mL/min (>60); Est Glom Filt Rate - Afr Amer 54 mL/min (>60); Estimated Creatinine Clearance 43.33 ml/min; Glucose 234 mg/dL (74-106); Potassium 3.9 mmol/L (3.5-5.1); Sodium Level 131 mmol/L (136-145)
[2020-09-21] MEDS: DiphenhydrAMINE 50 MG/ML Syringe 25 MG IV (16:52)
--- NOTE | 2020-09-21 16:57 | RAD_ITS ---
STUDY: X-RAY CHEST REASON FOR EXAM: Female, 55 years old. Chest pain TECHNIQUE: 1 view COMPARISON: None. FINDINGS: Cardiomediastinal silhouette is unremarkable. Costophrenic angles are sharp. Lungs are clear. The trachea is midline. There is no pneumothorax. The bones are grossly intact. RAD/Chest 1 View (Portable) IMPRESSION: No acute cardiopulmonary process. Electronically Signed: Rex Hernandez MD at 18:08 EDT Tel , Service support ,
[2020-09-21 17:08] VITALS: BP 136/87; PULSE 67; RESP 15; O2SAT 97
[2020-09-21] MEDS: Famotidine 200 MG/20 ML MDV 20 MG in 0.9% Normal Saline (Pres. free 8 ML 300 MG IV (17:09)
[2020-09-21 18:36] VITALS: BP 171/105; PULSE 68; RESP 13; O2SAT 97
[2020-09-21 19:17] VITALS: BP 161/103; PULSE 72; RESP 14; O2SAT 95
[2020-09-21 19:47] VITALS: BP 163/79; PULSE 74; RESP 18; O2SAT 98
== END 2020-09-21 19:48 | disposition home or self-care (01) ==
PROVIDERS: Emergency Provider Emergency Medicine; PCP Student in an Organized Health Care Education/Training Program
DX: R22.1 Localized swelling, mass and lump, neck (principal); I10 Essential (primary) hypertension; E11.9 Type 2 diabetes mellitus without complications; J44.9 Chronic obstructive pulmonary disease, unspecified; Z79.4 Long term (current) use of insulin; Z79.899 Other long term (current) drug therapy; Z87.891 Personal history of nicotine dependence
CPT/HCPCS: 71045; 80048; 84484; 85025; 87880; 93005; 96374; 96375; 99285; A4216; J3490

== ENCOUNTER 2020-11-20 23:03 | Emergency (ER) | payer MEDICARE, MEDICAID, SELFPAY ==
[2020-11-20 23:03] VITALS: BP 162/94; PULSE 83; RESP 16; TEMP 36.6; O2SAT 98; BMI 42.0
--- NOTE | 2020-11-20 23:34 | EKG12_ITS ---
Test Reason : DYSRHYTHMIA Blood Pressure : / mmHG Vent. Rate : 069 BPM Atrial Rate : 069 BPM P-R Int : 148 ms QRS Dur : 090 ms QT Int : 408 ms P-R-T Axes : 034 -08 052 degrees QTc Int : 437 ms Normal sinus rhythm Inferior infarct , age undetermined Abnormal ECG Confirmed by TIGRE LEPE, EDUARDO ([id number]), tape editor JASPAL TRUJILLO ([id number]) on 11/21/2020 10:23:06 AM Referred By: MEG Confirmed By:EDUARDO LANDEROS MD
--- NOTE | 2020-11-20 23:35 | CT_ITS ---
STUDY: CT ABDOMEN AND PELVIS WITH CONTRAST REASON FOR EXAM: Female, 55 years old. abd pain RADIATION DOSAGE (If Supplied By Facility): CTDIvol = ( 18.68 ) mGy, DLP = ( 1247.77 ) mGycm TECHNIQUE: Transaxial images were obtained from the dome of the diaphragm to the symphysis pubis without oral contrast. IV 100mL Isovue-[id number] was administered. Sagittal and coronal images were reconstructed. Individualized dose optimization techniques were used for this CT. COMPARISON: None. FINDINGS: The visualized lung bases are unremarkable. The visualized portions of the heart are within normal limits. Normal liver. There is non-visualization of the gallbladder, which may be secondary to either contraction or a prior cholecystectomy. Normal spleen. Normal pancreas. Normal bilateral adrenal glands. Normal right kidney. Normal left kidney. Normal visualized stomach. Normal small intestine. Normal colon. There is non-visualization of the appendix. Normal abdominal aorta. Normal inferior vena cava. Normal retroperitoneum. Normal urinary bladder. There is atrophy of the uterus. Normal abdominal wall. Normal osseous structures. CT/Abdomen/Pelvis W IV Cont ONLY IMPRESSION: No acute findings. Electronically Signed: Delgado Amezquita DO at 0:38 EDT Tel , Service support ,
[2020-11-20 23:37] VITALS: PULSE 78; RESP 18; O2SAT 98
[2020-11-20 23:44] LABS: Mucous, Urine 0 SEEN /hpf (<or=2+); Red Blood Cells-Urine 0 SEEN /hpf (0-5); White Blood Cells 0 SEEN /hpf (0-5)
[2020-11-20] MEDS: 0.9% Normal Saline 1,000 ML 1000 ML IV (23:44)
[2020-11-20] MEDS: Ondansetron 4 MG/2 ML Vial IV (23:44)
[2020-11-20 23:45] LABS: Absolute Lymphocyte Count 2.65 X10^3/uL (0.83-4.51); Absolute Neutrophil Count 4.2 X10^3/uL (2.0-7.7); Basophil# 0.08 X10^3/uL; Eosinophil# 0.11 X10^3/uL; Eosinophils% 1.4 % (0-5); Hematocrit 42.9 % (37-47); Hemoglobin 14.3 g/dL (12.0-15.0); Lymphocyte # 2.65 X10^3/ul (0.83-4.51); Lymphocyte % 33.6 % (19-41); Mean Corp Hgb Conc 33.3 g/dL (32-36); Mean Corpuscular Hgb 30.1 pg (27.0-32.0); Mean Corpuscular Volume 90.3 fL (81-99); Mean Platelet Vol. 10.9 fl (6.2-12.0); Monocyte# 0.73 X10^3/uL; Monocyte% 9.3 % (0-10); NRBC Flagged by Analyzer 0 % (0-5); Neutrophil # 4.24 X10^3/uL (2.7-7.7); Neutrophil % 53.7 % (47-70); Platelet Count 234 K/mm3 (150-450); RBC Distribution Width CV 12.7 % (11.6-14.6); RBC Distribution Width SD 41.9 fl (35.1-43.9); Red Blood Count 4.75 M/mm3 (4.2-5.4); White Blood Count 7.9 K/mm3 (4.4-11.0)
[2020-11-20 23:48] LABS: Color, Urine Yellow (Yellow); Glucose, Dipstick 100 mg/dl (Normal); Ketone-Dipstick 5 mg/dl (Negative); Leukocyte Esterase-Dipstick Negative /ul (Negative); Nitrite-Dipstick Negative (Negative); Occult Blood-Urine 10 /ul (Negative); Protein-Dipstick 15 mg/dl (Negative); Specific Gravity, Urine 1.025 (1.002-1.030); Urine Bilirubin Dipstick Negative (Negative); Urine Clarity Clear (Clear); Urine Urobilinogen 1 mg/dl (Normal)
[2020-11-20 23:59] LABS: Bacteria 2+ /hpf (None Seen); Squamous Epithelial Cells - UA 0-5 SEEN /hpf (5-10)
[2020-11-21] LABS: ALB/GLOB Ratio 0.9 RATIO (0.9-2.4); AST(SGOT) 31 U/L (15-37); Alanine Aminotransfer ALT/SGPT 29 U/L (13-56); Albumin, Serum 3.8 g/dL (3.2-5.0); Alkaline Phosphatase 78 U/L (45-117); Anion Gap 9 (5-15); BUN 16 mg/dL (7-18); BUN/Creat Ratio 14.2 RATIO (10-20); Chloride 101 mmol/L (98-107); Creatinine, Serum 1.13 mg/dL (0.55-1.02); EST Glomerular Filtration Rate 53 mL/min (>60); Est Glom Filt Rate - Afr Amer 64 mL/min (>60); Estimated Creatinine Clearance 50.62 ml/min; Globulin 4.3 g/dL (2.2-4.2); Glucose 238 mg/dL (74-106); Lipase 228 U/L (73-393); Potassium 3.7 mmol/L (3.5-5.1); Protein, Total 8.1 g/dL (6.4-8.2); Sodium Level 133 mmol/L (136-145)
--- NOTE | 2020-11-21 01:06 | EX.ED.DYSGE1 ---
HPI History of Present Illness Chief Complaint: General Illness Detail of Chief Complaint: Elevated blood sugar, headache, diarrhea Informant: patient Onset/Context/Timing Onset: Days Context: Gradual Onset Narrative Narrative: Patient is a 55-year-old female with history of hiatal hernia, C. difficile, COPD, anxiety, depression, type 2 diabetes mellitus, hypertension, hyperlipidemia, pancreatitis and chronic diarrhea presenting from home with generalized malaise. Patient states he has been feeling bad for the past 5 days. She states is left-sided headache. She notes her blood sugars been elevated at home around 300. She did take her evening insulin states has been compliant with it. She notes that she has had chronic diarrhea for the past 8 months as well as intermittent nausea. She has had recurrent diarrhea over the past week and had some blood in her stool. Patient states this has been ongoing and she has had a colonoscopy in March 2020 which did not explain her symptoms. Patient states he does have some mild associate abdominal cramping with this. She has had some associated dysuria and low back pain. She has been feeling dizzy. She has had some mild intermittent chest pain over the past week but currently denies any. Patient notes she had diverticulitis in the past and this does feel similar to that. No other complaints or concerns at this time. [facility] Medical History (Updated 11/21/20 @ 01:[address] Amelia White, ) Acute pancreatitis Acute respiratory failure EMILIO (acute kidney injury) Angioedema Anxiety Anxiety and depression Bloody diarrhea C. difficile diarrhea Chest pain COPD (chronic obstructive pulmonary disease) COPD exacerbation Depression Difficulty breathing Former tobacco use GERD (gastroesophageal reflux disease) Hiatal hernia Hyperglycemia Hyperlipidemia Hypertension Morbid obesity Morbid obesity Neck pain SHARMIN (obstructive sleep apnea) Tracheostomy dependence Type II diabetes mellitus Upper airway obstruction Home Medications loratadine 10 mg PO DAILY 12/16/16 [History Last Taken 08/27/19] glimepiride 4 mg PO BID 05/25/17 [History Last Taken 08/27/19] lansoprazole 30 mg PO DAILY 07/06/18 [History Last Taken 04/07/20 08:00] buspirone 10 mg PO TID 02/20/19 [History Last Taken 08/27/19] spironolactone 50 mg PO DAILY 02/20/19 [History Last Taken 08/27/19] atenolol 150 mg PO DAILY 07/10/19 [History Last Taken 04/07/20 08:00] insulin glargine 10 units SUBCUT QHS 07/10/19 [History Last Taken 08/26/19] escitalopram oxalate 20 mg PO DAILY 11/08/19 [History Last Taken Unknown] zolpidem 5 mg PO QHS 03/15/20 [History Last Taken Unknown] famotidine 20 mg PO QHS 09/21/20 [History Last Taken Unknown] meloxicam 15 mg PO DAILY 09/21/20 [History Last Taken Unknown] promethazine 25 mg PO Q8H PRN 09/21/20 [History Last Taken Unknown] Allergy/AdvReac Type Severity Reaction Status Date / Time bupropion [From Wellbutrin] Allergy Angioedema Verified 11/20/20 23:05 lisinopril Allergy Angioedema Verified 11/20/20 23:05 sulfamethoxazole Allergy Rash Verified 11/20/20 23:05 [From Bactrim] trimethoprim [From Bactrim] Allergy Rash Verified 11/20/20 23:05 acetaminophen [From Vicodin] AdvReac Nausea/Vom/ Verified 11/20/20 23:05 Diarrhea aspirin AdvReac Nausea/Vom/ Verified 11/20/20 23:05 Diarrhea hydrocodone [From Vicodin] AdvReac Nausea/Vom/ Verified 11/20/20 23:05 Diarrhea Surgical History s/p bladder sling S/P laparoscopic cholecystectomy s/p novasure S/P tubal ligation Status post tracheostomy Social History Smoking Status: Former smoker ROS ROS ED Constitutional Constitutional ED: Reports sweats; Denies chills, fever(s) or malaise Eyes Eyes: Denies blurry vision or loss of vision ENT ENT ED: Denies rhinorrhea or sore throat Cardiovascular Cardiovascular: Reports chest pain; Denies dizziness or palpitations Respiratory/Chest Respiratory/Chest: Denies cough, dyspnea or sputum Gastrointestinal Gastrointestinal: Reports abdominal pain, diarrhea and nausea; Denies vomiting Genitourinary Genitourinary ED: Reports dysuria; Denies hematuria Musculoskeletal Musculoskeletal: Denies arthralgias or myalgias Integumentary Denies rash or wounds Neurologic Neurologic: Reports headache(s); Denies focal weakness Psychiatric Psychiatric: Denies anxiety or behavioral changes EXAM Physical Exam Const Vital Signs: 11/20/20 23:03 11/20/20 23:37 11/21/20 01:25 Temperature 97.9 F Temperature Source Temporal Pulse Rate 83 78 70 Respiratory Rate 16 18 14 Respiratory Effort Normal Respiratory Pattern Normal Blood Pressure 162/94 H 171/96 H Blood Pressure Mean 116 Pulse Ox 98 98 97 Oxygen Delivery Method Room Air Room Air Positive well nourished, well developed and no apparent distress General Appearance ED: well developed HEENT Reports normocephalic and moist mucous membranes atraumatic Nose: no nasal discharge General Ear: hearing grossly impaired External Ear: external ears normal Mouth ED: Yes moist mucous membranes abnormal Mouth: moist mucous membranes abnormal Eyes PERRL and EOMs intact bilaterally Neck full ROM, supple, no meningeal signs and no JVD Chest Wall inspection of chest normal Resp normal respiratory effort, normal air movement and clear to auscultation bilaterally Cardio regular rate, regular rhythm and no murmurs GI normal to inspection, nondistended, normoactive bowel sounds Extremity normal to inspection and full ROM Neuro oriented x3 and no focal motor deficits Sensorium / Orientation: alert Psych mental status grossly normal and thought process normal Skin no rashes or lesions noted and no wounds MDM MDM MDM Narrative Medical decision making narrative: Patient complaining of headache, generalized malaise, diarrhea, dysuria and back pain. She appears nontoxic and in no acute distress. Vital signs are normal. She is not have any obvious signs of infection on exam. EKG and troponin are normal. I do not suspect a cardiac cause at this time. CBC is normal. She does not have a leukocytosis. Patient CMP is remarkable for mild hyperglycemia with a glucose of 238. Her creatinine is 1.13 but this appears to be her baseline. Urinalysis is not consistent with infection. CT the abdomen pelvis does not show any acute intra-abdominal pathology including diverticulitis or kidney stone. Patient is given IV fluids and Zofran in the emergency room. She be discharged home to follow-up with her primary care doctor. She is also instructed to follow-up with her surgeon/GI doctor for further evaluation of this chronic diarrhea. Patient is counseled on return precautions. She verbalizes agreement understanding this plan. She states she does have nausea medicine at home to take. Lab Data Labs: Laboratory Results - last 24 hr 11/20/20 11/20/20 11/20/20 23:20 23:20 23:24 WBC 7.9 RBC 4.75 Hgb 14.3 Hct 42.9 MCV 90.3 MCH 30.1 MCHC 33.3 RDW Std Deviation 41.9 RDW Coeff of [place] 12.7 Plt Count 234 MPV 10.9 Immature Gran % (Auto) 1.000 H Neut % (Auto) 53.7 Lymph % (Auto) 33.6 [place] % (Auto) 9.3 Eos % (Auto) 1.4 Baso % (Auto) 1.0 Absolute Neuts (auto) 4.2 Absolute Lymphs (auto) 2.65 Nucleated RBC % 0 Sodium 133 L Potassium 3.7 Chloride 101 Carbon Dioxide 23.0 Anion Gap 9 BUN 16 Creatinine 1.13 H Estim Creat Clear Calc 50.62 Est GFR (MDRD) Af Amer 64 Est GFR (MDRD) Non-Af 53 L BUN/Creatinine Ratio 14.2 Glucose 238 H Calcium 9.0 Total Bilirubin 0.30 AST 31 ALT 29 Alkaline Phosphatase 78 Troponin I < 0.015 Total Protein 8.1 Albumin 3.8 Globulin 4.3 H Albumin/Globulin Ratio 0.9 Lipase 228 Urine Color Yellow Urine Clarity Clear Urine pH 5.0 Ur Specific [place] 1.025 Urine Protein 15 H Urine Glucose (UA) 100 H Urine Ketones 5 H Urine Occult Blood 10 H Urine Nitrite Negative Urine Bilirubin Negative Urine Urobilinogen 1 H Ur Leukocyte Esterase Negative Urine RBC 0 SEEN Urine WBC 0 SEEN Ur Squamous Epith Cells 0-5 SEEN Urine Bacteria 2+ Urine Mucus 0 SEEN Radiography Diagnostic Testing: Radiology Impression Abdomen/Pelvis CT 11/20/20 23:35 IMPRESSION: No acute findings. Electronically Signed: Delgado Amezquita DO at 0:38 EDT Tel , Service support , Rhythm Strip Rhythm Strip: Sinus Rhythm Rate: 69 Ectopy: None EKG Initial EKG: Attestation: I personally reviewed and interpreted this EKG as follows: Interpretation: Sinus Rhythm Comments: Normal sinus rhythm at a rate of 69 Left axis deviation Normal intervals Normal ST segments Compared to prior EKG on 09/13/2020 Discharge Plan Triage Chief Complaint: General Illness ED Provider: Amelia White Dx/Rx/DC Orders Clinical Impression: Hyperglycemia, Headache, Abdominal pain in female, Diarrhea Instructions: ED Abdominal Pain Unkn Cause Fem, ED Diabetic Hyperglycemia, ED Diarrhea, Unknown Cause Prescriptions: No Action loratadine 10 MG tablet 10 mg PO DAILY RF: 0 glimepiride 4 MG tablet 4 mg PO BID RF: 0 lansoprazole 30 MG capsule,delayed release(DR/EC) 30 mg PO DAILY RF: 0 buspirone 7.5 MG tablet 10 mg PO TID RF: 0 spironolactone 50 MG tablet 50 mg PO DAILY RF: 0 insulin glargine 100 UNITS/ML insulin pen 10 units subcut QHS RF: 0 atenolol 50 MG tablet 150 mg PO DAILY RF: 0 escitalopram oxalate 10 MG tablet 20 mg PO DAILY RF: 0 zolpidem 5 MG tablet 5 mg PO QHS RF: 0 meloxicam 15 MG tablet 15 mg PO DAILY RF: 0 famotidine 20 MG tablet 20 mg PO QHS RF: 0 promethazine 25 MG tablet 25 mg PO Q8H PRN (Reason: Nausea) RF: 0 Primary Care Provider: Joaquim Burks Referrals: Florentino Mendoza MD [STAFF PHYSICIAN] - Joaquim Burks DO [Primary Care Provider] - Disposition Disposition: Home, self care Discharge Date/Time: 11/21/20 01:26
[2020-11-21 01:25] VITALS: BP 171/96; PULSE 70; RESP 14; O2SAT 97
== END 2020-11-21 01:26 | disposition home or self-care (01) ==
PROVIDERS: Emergency Provider Emergency Medicine; PCP Student in an Organized Health Care Education/Training Program
DX: E11.65 Type 2 diabetes mellitus with hyperglycemia (principal); R51.9 Headache, unspecified; R10.9 Unspecified abdominal pain; R19.7 Diarrhea, unspecified; I10 Essential (primary) hypertension; K44.9 Diaphragmatic hernia without obstruction or gangrene; E78.5 Hyperlipidemia, unspecified; F32.9 Major depressive disorder, single episode, unspecified; F41.9 Anxiety disorder, unspecified; K21.9 Gastro-esophageal reflux disease without esophagitis; G47.33 Obstructive sleep apnea (adult) (pediatric); J44.9 Chronic obstructive pulmonary disease, unspecified; Z87.19 Personal history of other diseases of the digestive system; Z86.19 Personal history of other infectious and parasitic diseases; Z79.4 Long term (current) use of insulin; Z79.82 Long term (current) use of aspirin; Z79.899 Other long term (current) drug therapy; Z87.891 Personal history of nicotine dependence
CPT/HCPCS: 74177; 80053; 81001; 83690; 84484; 85025; 93005; 96361; 96374; 99284; J7030; Q9967; A4216; J2405

== ENCOUNTER 2020-12-05 17:53 | Emergency (ER) | payer MEDICARE, MEDICAID, SELFPAY ==
[2020-12-05 18:04] VITALS: BP 166/98; PULSE 70; RESP 16; TEMP 36.2; O2SAT 96; BMI 43.0
--- NOTE | 2020-12-05 18:22 | EDS_ITS ---
HPI History of Present Illness Chief Complaint: Chest Pain Informant: patient Narrative Narrative: 55-year-old female presents to the emergency department with chest pain. She states that today she got an argument got very stressed out and got pinching midsternal chest pain. She states that over the past couple weeks she has felt very rundown. She notes diarrhea and lack of appetite. She saw her doctor for that on Tuesday. She states her blood sugars been running high because she has not been eating. She states she drinks a lot of fluids. She tells me she feels depressed but not suicidal. She states that she does not take anything for her depression but she has been prescribed Lexapro and buspirone. She denies any shortness of breath at the current time. [facility] Medical History (Updated 12/05/20 @ 20:[address] Florentino Botello, ) Acute pancreatitis Acute respiratory failure EMILIO (acute kidney injury) Angioedema Anxiety Anxiety and depression Bloody diarrhea C. difficile diarrhea Chest pain COPD (chronic obstructive pulmonary disease) COPD exacerbation Depression Difficulty breathing Former tobacco use GERD (gastroesophageal reflux disease) Hiatal hernia Hyperglycemia Hyperlipidemia Hypertension Morbid obesity Morbid obesity Neck pain SHARMIN (obstructive sleep apnea) Tracheostomy dependence Type II diabetes mellitus Upper airway obstruction Home Medications loratadine 10 mg PO DAILY 12/16/16 [History Last Taken 08/27/19] glimepiride 4 mg PO BID 05/25/17 [History Last Taken 08/27/19] lansoprazole 30 mg PO DAILY 07/06/18 [History Last Taken 04/07/20 08:00] buspirone 10 mg PO TID 02/20/19 [History Last Taken 08/27/19] spironolactone 50 mg PO DAILY 02/20/19 [History Last Taken 08/27/19] atenolol 150 mg PO DAILY 07/10/19 [History Last Taken 04/07/20 08:00] insulin glargine 10 units SUBCUT QHS 07/10/19 [History Last Taken 08/26/19] escitalopram oxalate 20 mg PO DAILY 11/08/19 [History Last Taken Unknown] zolpidem 5 mg PO QHS 03/15/20 [History Last Taken Unknown] famotidine 20 mg PO QHS 09/21/20 [History Last Taken Unknown] meloxicam 15 mg PO DAILY 09/21/20 [History Last Taken Unknown] promethazine 25 mg PO Q8H PRN 09/21/20 [History Last Taken Unknown] Allergy/AdvReac Type Severity Reaction Status Date / Time bupropion [From Wellbutrin] Allergy Angioedema Verified 11/20/20 23:05 lisinopril Allergy Angioedema Verified 11/20/20 23:05 sulfamethoxazole Allergy Rash Verified 11/20/20 23:05 [From Bactrim] trimethoprim [From Bactrim] Allergy Rash Verified 11/20/20 23:05 acetaminophen [From Vicodin] AdvReac Nausea/Vom/ Verified 11/20/20 23:05 Diarrhea aspirin AdvReac Nausea/Vom/ Verified 11/20/20 23:05 Diarrhea hydrocodone [From Vicodin] AdvReac Nausea/Vom/ Verified 11/20/20 23:05 Diarrhea Surgical History s/p bladder sling S/P laparoscopic cholecystectomy s/p novasure S/P tubal ligation Status post tracheostomy Social History (Updated 12/05/20 @ 18:[address] Florentino Botello DO) Smoking Status: Former smoker substance use type: does not use ROS ROS ED Constitutional Constitutional ED: Reports other Details: Fatigue ; Denies chills or weight loss Eyes Eyes: Denies change in vision or diplopia ENT ENT ED: Denies ear pain, rhinorrhea or sore throat Cardiovascular Cardiovascular: Reports chest pain; Denies orthopnea, palpitations or racing heartbeat Respiratory/Chest Respiratory/Chest: Denies cough, dyspnea or orthopnea Gastrointestinal Gastrointestinal: Reports diarrhea and nausea; Denies abdominal pain or vomiting Genitourinary Genitourinary ED: Denies dysuria, hematuria or urinary frequency Musculoskeletal Musculoskeletal: Denies arthralgias or myalgias Integumentary Denies abscess or rash Neurologic Neurologic: Denies headache(s) or weakness Psychiatric Psychiatric: Reports anxiety and depression; Denies suicidal ideation or suicidal thoughts Endocrine Endocrinology: Denies polydipsia, polyphagia or polyuria Allergic/Immunologic Allergic/Immunologic ED: Denies mouth swelling, tongue swelling or urticaria EXAM Physical Exam Const Vital Signs: 12/05/20 18:04 Temperature 97.1 F L Temperature Source Temporal Pulse Rate 70 Respiratory Rate 16 Respiratory Effort Normal Non-Labored Respiratory Pattern Normal Blood Pressure 166/98 H Blood Pressure Mean 120 Pulse Ox 96 Oxygen Delivery Method Room Air Positive well nourished and well developed General Appearance ED: well developed HEENT Reports normocephalic, head/scalp atraumatic and moist mucous membranes Eyes PERRL and EOMs intact bilaterally Neck no lymphadenopathy, supple and no JVD Resp normal respiratory effort and clear to auscultation bilaterally Cardio regular rate, regular rhythm and no murmurs GI normal to inspection, nondistended, normoactive bowel sounds and non-tender Palpation: soft Back/Spine no CVA tenderness and normal ROM Extremity normal to inspection General Extremety ED: Negative for edema General Extremity: Negative for edema Neuro oriented x3 and CN's II-XII intact bilaterally Sensorium / Orientation: alert Motor Exam: strength 5/5 throughout Psych mental status grossly normal Mood & Affect: depressed and tearful Skin no rashes or lesions noted and no wounds Heart Score History: Slightly/Non-Suspicious ECG: Normal Age: >45 - <65 years Risk Factors: >/= 3 Risk Factors or History of CAD Troponin: </= Normal Limit Score: 3 MDM MDM MDM Narrative Medical decision making narrative: Troponin negative. EKG is not concerning. My interpretation of the chest x-ray is no acute process. At this point I think the patient can be discharged home. I worry that some of her symptoms are depression and anxiety. She agrees with this sentiment and notes that she used to see counseling after she was released from mental health stay last year. I will refer to the counseling center asked her to see her family doctor soon as possible return if worsening or concerns Lab Data Attestation: I reviewed the patient's lab results. Labs: Laboratory Results - last 24 hr 12/05/20 12/05/20 18:00 18:35 WBC 7.8 RBC 4.89 Hgb 14.6 Hct 43.1 MCV 88.1 MCH 29.9 MCHC 33.9 RDW Std Deviation 40.8 RDW Coeff of [place] 12.5 Plt Count 227 MPV 11.1 Immature Gran % (Auto) 1.200 H Neut % (Auto) 69.1 Lymph % (Auto) 19.7 [place] % (Auto) 7.5 Eos % (Auto) 1.3 Baso % (Auto) 1.2 H Absolute Neuts (auto) 5.4 Absolute Lymphs (auto) 1.54 Nucleated RBC % 0 Sodium 131 L Potassium 3.8 Chloride 99 Carbon Dioxide 23.0 Anion Gap 9 BUN 13 Creatinine 1.19 H Estim Creat Clear Calc 48.07 Est GFR (MDRD) Af Amer 60 Est GFR (MDRD) Non-Af 50 L BUN/Creatinine Ratio 10.9 Glucose 223 H Calcium 9.4 Total Bilirubin 0.50 AST 34 ALT 30 Alkaline Phosphatase 84 Troponin I < 0.015 Total Protein 8.4 H Albumin 4.0 Globulin 4.4 H Albumin/Globulin Ratio 0.9 Lipase 131 Radiography Diagnostic Testing: Radiology Impression Chest X-Ray 12/05/20 18:55 IMPRESSION: No acute cardiopulmonary findings or changes. Electronically Signed: Lashanda Oswald MD at 20:12 EDT , Service support , EKG Initial EKG: Attestation: I personally reviewed and interpreted this EKG as follows: Comments: EKG demonstrates a normal sinus rhythm at a rate of 67. No concerning features of ACS or ectopy noted. Discharge Plan Triage Chief Complaint: Chest Pain ED Provider: Florentino Botello Dx/Rx/DC Orders Clinical Impression: Depression, Chest pain Instructions: ED Depression Prescriptions: No Action loratadine 10 MG tablet 10 mg PO DAILY RF: 0 glimepiride 4 MG tablet 4 mg PO BID RF: 0 lansoprazole 30 MG capsule,delayed release(DR/EC) 30 mg PO DAILY RF: 0 buspirone 7.5 MG tablet 10 mg PO TID RF: 0 spironolactone 50 MG tablet 50 mg PO DAILY RF: 0 insulin glargine 100 UNITS/ML insulin pen 10 units subcut QHS RF: 0 atenolol 50 MG tablet 150 mg PO DAILY RF: 0 escitalopram oxalate 10 MG tablet 20 mg PO DAILY RF: 0 zolpidem 5 MG tablet 5 mg PO QHS RF: 0 meloxicam 15 MG tablet 15 mg PO DAILY RF: 0 famotidine 20 MG tablet 20 mg PO QHS RF: 0 promethazine 25 MG tablet 25 mg PO Q8H PRN (Reason: Nausea) RF: 0 Primary Care Provider: Joaquim Burks Referrals: Counseling,Center [GROUP OF PHYSICIANS] - As soon as possible Joaquim Burks, [Primary Care Provider] - As soon as possible Disposition Disposition: Home, self care
--- NOTE | 2020-12-05 18:22 | EKG12_ITS ---
Test Reason : CP Blood Pressure : / mmHG Vent. Rate : 067 BPM Atrial Rate : 067 BPM P-R Int : 152 ms QRS Dur : 080 ms QT Int : 412 ms P-R-T Axes : 000 -12 046 degrees QTc Int : 435 ms Normal sinus rhythm Minimal voltage criteria for LVH, may be normal variant Possible Inferior infarct , age undetermined Abnormal ECG Confirmed by TIGRE LEPE, EDUARDO ([id number]), website/blog editor JASPAL TRUJILLO ([id number]) on 12/08/2020 1:36:08 PM Referred By: Confirmed By:EDUARDO LANDEROS MD
[2020-12-05 18:50] LABS: Absolute Lymphocyte Count 1.54 X10^3/uL (0.83-4.51); Absolute Neutrophil Count 5.4 X10^3/uL (2.0-7.7); Basophil# 0.09 X10^3/uL; Basophil% 1.2 % (0-1); Eosinophils% 1.3 % (0-5); Hematocrit 43.1 % (37-47); Hemoglobin 14.6 g/dL (12.0-15.0); Lymphocyte # 1.54 X10^3/ul (0.83-4.51); Lymphocyte % 19.7 % (19-41); Mean Corp Hgb Conc 33.9 g/dL (32-36); Mean Corpuscular Hgb 29.9 pg (27.0-32.0); Mean Corpuscular Volume 88.1 fL (81-99); Mean Platelet Vol. 11.1 fl (6.2-12.0); Monocyte# 0.59 X10^3/uL; Monocyte% 7.5 % (0-10); NRBC Flagged by Analyzer 0 % (0-5); Neutrophil # 5.41 X10^3/uL (2.7-7.7); Neutrophil % 69.1 % (47-70); Platelet Count 227 K/mm3 (150-450); RBC Distribution Width CV 12.5 % (11.6-14.6); RBC Distribution Width SD 40.8 fl (35.1-43.9); Red Blood Count 4.89 M/mm3 (4.2-5.4); White Blood Count 7.8 K/mm3 (4.4-11.0)
[2020-12-05] MEDS: 0.9% Normal Saline 1,000 ML 1000 ML IV (18:50)
--- NOTE | 2020-12-05 18:55 | RAD_ITS ---
STUDY: X-RAY CHEST REASON FOR EXAM: Female, 55 years old. chest pain TECHNIQUE: 1 view COMPARISON: Prior chest radiograph 09/21/2020 FINDINGS: The lungs are clear and expanded. There is no demonstrated pleural abnormality. Normal size heart. Normal mediastinum and christy. Normal visualized pulmonary arteries. Normal visualized aortic arch and descending thoracic aorta. There are diffuse degenerative changes of the visualized thoracic spine. Normal visualized ribs, clavicles, and shoulders. There is no demonstrated abnormality of the visualized soft tissue structures of the upper abdomen. RAD/Chest 1 View (Portable) IMPRESSION: No acute cardiopulmonary findings or changes. Electronically Signed: Lashanda Oswald MD at 20:12 EDT , Service support ,
[2020-12-05 19:00] VITALS: PULSE 75; RESP 21
[2020-12-05 19:13] LABS: ALB/GLOB Ratio 0.9 RATIO (0.9-2.4); AST(SGOT) 34 U/L (15-37); Alanine Aminotransfer ALT/SGPT 30 U/L (13-56); Alkaline Phosphatase 84 U/L (45-117); Anion Gap 9 (5-15); BUN 13 mg/dL (7-18); BUN/Creat Ratio 10.9 RATIO (10-20); Calcium,Total 9.4 mg/dL (8.5-10.1); Chloride 99 mmol/L (98-107); Creatinine, Serum 1.19 mg/dL (0.55-1.02); EST Glomerular Filtration Rate 50 mL/min (>60); Est Glom Filt Rate - Afr Amer 60 mL/min (>60); Estimated Creatinine Clearance 48.07 ml/min; Globulin 4.4 g/dL (2.2-4.2); Glucose 223 mg/dL (74-106); Lipase 131 U/L (73-393); Potassium 3.8 mmol/L (3.5-5.1); Protein, Total 8.4 g/dL (6.4-8.2); Sodium Level 131 mmol/L (136-145)
[2020-12-05 20:26] LABS: Bacteria 0 SEEN /hpf (None Seen); Mucous, Urine 0 SEEN /hpf (<or=2+); Red Blood Cells-Urine 0 SEEN /hpf (0-5); White Blood Cells 0 SEEN /hpf (0-5)
[2020-12-05 20:30] LABS: Color, Urine Yellow (Yellow); Glucose, Dipstick Normal (Normal); Ketone-Dipstick Negative (Negative); Leukocyte Esterase-Dipstick Negative /ul (Negative); Nitrite-Dipstick Negative (Negative); Occult Blood-Urine Negative /ul (Negative); Protein-Dipstick Negative (Negative); Urine Bilirubin Dipstick Negative (Negative); Urine Clarity Clear (Clear); Urine Urobilinogen Normal (Normal); Urine pH 6.5 (5.0 - 8.0)
[2020-12-05 20:40] LABS: Squamous Epithelial Cells - UA 0-5 SEEN /hpf (5-10)
[2020-12-05 20:42] VITALS: BP 171/90; PULSE 77; RESP 19; O2SAT 97
== END 2020-12-05 20:49 | disposition home or self-care (01) ==
PROVIDERS: Emergency Provider Emergency Medicine; PCP Student in an Organized Health Care Education/Training Program
DX: F32.9 Major depressive disorder, single episode, unspecified (principal); R07.9 Chest pain, unspecified; E66.01 Morbid (severe) obesity due to excess calories; I25.10 Atherosclerotic heart disease of native coronary artery without angina pectoris; Z93.0 Tracheostomy status; Z87.891 Personal history of nicotine dependence
CPT/HCPCS: 71045; 80053; 81001; 83690; 84484; 85025; 93005; 96360; 96361; 99285

== ENCOUNTER 2021-01-13 16:28 | Observation (INO) | payer MEDICARE, MEDICAID, SELFPAY ==
[2021-01-13] VITALS (7 sets, daily range): BP systolic 144–197; BP diastolic 82–109; PULSE 88–122; RESP 15–20; TEMP 36.7–37.1; O2SAT 95–97; BMI 42.3; BMI 41.9
--- NOTE | 2021-01-13 16:54 | EKG12_ITS ---
Test Reason : CP Blood Pressure : / mmHG Vent. Rate : 118 BPM Atrial Rate : 118 BPM P-R Int : 158 ms QRS Dur : 082 ms QT Int : 326 ms P-R-T Axes : 051 -12 035 degrees QTc Int : 456 ms Sinus tachycardia Inferior infarct , age undetermined, cannot be excluded Abnormal ECG Confirmed by LILLIAN LEPE, JUWAN ([id number]), senior technical editor JASPAL TRUJILLO ([id number]) on 01/16/2021 9:57:17 AM Referred By: KAREEM Confirmed By:JUWAN SNYDER MD
--- NOTE | 2021-01-13 17:06 | RAD_ITS ---
HISTORY: chest pain EXAMINATION/TECHNIQUE: XR Chest 1 View: Portable upright AP chest x-ray COMPARISON: 12/05/20 FINDINGS: LINES/DEVICES: None. LUNGS: No consolidation, edema or effusion. No pneumothorax. MEDIASTINUM AND CARDIOVASCULAR STRUCTURES: Cardiac silhouette not enlarged. Central airways and mediastinal contour are unremarkable. BONES AND SOFT TISSUES: No acute bony abnormalities. RAD/Chest 1 View (Portable) IMPRESSION: No radiographic evidence of acute cardiopulmonary disease. at 1738 Reported and signed by: Tacos Gonzalez MD Electronically Signed: Tacos Gonzalez MD at 17:36 EDT Tel , Service support ,
[2021-01-13 17:08] LABS: Absolute Lymphocyte Count 2.03 X10^3/uL (0.83-4.51); Absolute Neutrophil Count 4.9 X10^3/uL (2.0-7.7); Basophil# 0.08 X10^3/uL; Eosinophil# 0.17 X10^3/uL; Eosinophils% 2.2 % (0-5); Hematocrit 44.5 % (37-47); Hemoglobin 15.2 g/dL (12.0-15.0); Lymphocyte # 2.03 X10^3/ul (0.83-4.51); Lymphocyte % 25.8 % (19-41); Mean Corp Hgb Conc 34.2 g/dL (32-36); Mean Corpuscular Hgb 30.2 pg (27.0-32.0); Mean Corpuscular Volume 88.3 fL (81-99); Monocyte# 0.56 X10^3/uL; Monocyte% 7.1 % (0-10); NRBC Flagged by Analyzer 0 % (0-5); Neutrophil # 4.92 X10^3/uL (2.7-7.7); Neutrophil % 62.6 % (47-70); Platelet Count 246 K/mm3 (150-450); RBC Distribution Width CV 12.8 % (11.6-14.6); RBC Distribution Width SD 41.7 fl (35.1-43.9); Red Blood Count 5.04 M/mm3 (4.2-5.4); White Blood Count 7.9 K/mm3 (4.4-11.0)
--- NOTE | 2021-01-13 17:27 | EX.ED.DYSGE1 ---
HPI History of Present Illness Chief Complaint: Palpitations Informant: patient Narrative Narrative: 55-year-old female presenting with chest pain, palpitations. She states she has been having intermittent chest tightness over the past several days. She states today the pain started going into the left side of her neck. She has associated palpitations. She recently had change in her medication for her blood pressure. She states her atenolol was stopped and she was started on new blood pressure medication. She is unsure what medication was started. She states her glucose has also been running high. She has mild shortness of breath. She has chronic nausea and diarrhea. Prior similar symptoms: Yes Recent Illness/Hospitalization: No [facility] Medical History (Updated 01/13/21 @ 18:[address] Sydni Merrill MD) Acute pancreatitis Acute respiratory failure EMILIO (acute kidney injury) Angioedema Anxiety Anxiety and depression Bloody diarrhea C. difficile diarrhea Chest pain COPD (chronic obstructive pulmonary disease) COPD exacerbation Depression Difficulty breathing Former tobacco use GERD (gastroesophageal reflux disease) Hiatal hernia Hyperglycemia Hyperlipidemia Hypertension Morbid obesity Morbid obesity Neck pain SHARMIN (obstructive sleep apnea) Tracheostomy dependence Type II diabetes mellitus Upper airway obstruction Home Medications loratadine 10 mg PO DAILY 12/16/16 [History Last Taken 08/27/19] glimepiride 4 mg PO BID 05/25/17 [History Last Taken 08/27/19] lansoprazole 30 mg PO DAILY 07/06/18 [History Last Taken 04/07/20 08:00] buspirone 10 mg PO TID 02/20/19 [History Last Taken 08/27/19] spironolactone 50 mg PO DAILY 02/20/19 [History Last Taken 08/27/19] insulin glargine 20 units SUBCUT QHS 07/10/19 [History Last Taken 08/26/19] escitalopram oxalate 20 mg PO DAILY 11/08/19 [History Last Taken Unknown] zolpidem 5 mg PO QHS 03/15/20 [History Last Taken Unknown] famotidine 20 mg PO QHS 09/21/20 [History Last Taken Unknown] meloxicam 15 mg PO DAILY 09/21/20 [History Last Taken Unknown] promethazine 25 mg PO Q8H PRN 09/21/20 [History Last Taken Unknown] metoprolol succinate 50 mg PO DAILY 01/13/21 [History Last Taken Unknown] Allergy/AdvReac Type Severity Reaction Status Date / Time bupropion [From Wellbutrin] Allergy Angioedema Verified 01/13/21 16:32 lisinopril Allergy Angioedema Verified 01/13/21 16:32 sulfamethoxazole Allergy Rash Verified 01/13/21 16:32 [From Bactrim] trimethoprim [From Bactrim] Allergy Rash Verified 01/13/21 16:32 acetaminophen [From Vicodin] AdvReac Nausea/Vom/ Verified 01/13/21 16:32 Diarrhea aspirin AdvReac Nausea/Vom/ Verified 01/13/21 16:32 Diarrhea hydrocodone [From Vicodin] AdvReac Nausea/Vom/ Verified 01/13/21 16:32 Diarrhea Surgical History s/p bladder sling S/P laparoscopic cholecystectomy s/p novasure S/P tubal ligation Status post tracheostomy Social History (Updated 12/05/20 @ 18:[address] Florentino Botello DO) Smoking Status: Former smoker substance use type: does not use ROS ROS ED Constitutional Constitutional ED: Denies fever(s) Eyes Eyes: Denies change in vision ENT ENT ED: Denies rhinorrhea or sore throat Cardiovascular Cardiovascular: Reports chest pain and palpitations Respiratory/Chest Respiratory/Chest: Denies cough or dyspnea Gastrointestinal Gastrointestinal: Reports diarrhea and nausea; Denies abdominal pain or vomiting Genitourinary Genitourinary ED: Denies dysuria Musculoskeletal Musculoskeletal: Denies myalgias Integumentary Denies rash Neurologic Neurologic: Denies headache(s) Psychiatric Psychiatric: Denies suicidal thoughts EXAM Physical Exam Const Vital Signs: 01/13/21 16:29 01/13/21 16:36 01/13/21 17:04 Temperature 98.6 F Temperature Source Oral Pulse Rate 122 H Respiratory Rate 18 Respiratory Effort Short of Breath Respiratory Pattern Normal Blood Pressure 197/109 H Blood Pressure Mean 138 Pulse Ox 97 Oxygen Delivery Method Room Air Room Air 01/13/21 17:05 01/13/21 18:00 Temperature Temperature Source Pulse Rate 108 H 109 H Respiratory Rate 15 18 Respiratory Effort Respiratory Pattern Blood Pressure 147/82 H 164/100 H Blood Pressure Mean 103 121 Pulse Ox 95 96 Oxygen Delivery Method Room Air Room Air MDM MDM MDM Narrative Medical decision making narrative: Patient declined aspirin. EKG is sinus tachycardia rate of 118 with no acute ischemic changes. Patient is resting comfortably on reevaluation. Discussed with hospitalist for observation. Lab Data Attestation: I reviewed the patient's lab results. Labs: Laboratory Results - last 24 hr 01/13/21 01/13/21 01/13/21 16:50 16:50 17:00 WBC 7.9 RBC 5.04 Hgb 15.2 H Hct 44.5 MCV 88.3 MCH 30.2 MCHC 34.2 RDW Std Deviation 41.7 RDW Coeff of Cecil 12.8 Plt Count 246 MPV 11.0 Immature Gran % (Auto) 1.300 H Neut % (Auto) 62.6 Lymph % (Auto) 25.8 Addison % (Auto) 7.1 Eos % (Auto) 2.2 Baso % (Auto) 1.0 Absolute Neuts (auto) 4.9 Absolute Lymphs (auto) 2.03 Nucleated RBC % 0 D-Dimer Quant (PE/DVT) <= 0.27 Sodium 130 L Potassium 4.2 Chloride 99 Carbon Dioxide 22.0 Anion Gap 9 BUN 21 H Creatinine 1.33 H Estim Creat Clear Calc 43.01 Est GFR (MDRD) Af Amer 53 L Est GFR (MDRD) Non-Af 44 L BUN/Creatinine Ratio 15.8 Glucose 327 H Calcium 9.3 Troponin I High Sens 5.6 Radiography Chest X-Ray - ED: 1 View, Read by ED Physician and Read by Radiologist Diagnostic Testing: Radiology Impression Chest X-Ray 01/13/21 17:06 IMPRESSION: No radiographic evidence of acute cardiopulmonary disease. at 1738 Reported and signed by: Tacos Gonzalez MD Electronically Signed: Tacos Gonzalez MD at 17:36 EDT Tel , Service support , EKG Initial EKG: Attestation: I personally reviewed and interpreted this EKG as follows: Interpretation: No Acute Injury Pattern and Sinus Tachycardia Discharge Plan Triage Chief Complaint: Palpitations ED Provider: Sydni Merrill Dx/Rx/DC Orders Clinical Impression: Chest pain, Heart palpitations Prescriptions: No Action loratadine 10 MG tablet 10 mg PO DAILY RF: 0 glimepiride 4 MG tablet 4 mg PO BID RF: 0 lansoprazole 30 MG capsule,delayed release(DR/EC) 30 mg PO DAILY RF: 0 buspirone 7.5 MG tablet 10 mg PO TID RF: 0 spironolactone 50 MG tablet 50 mg PO DAILY RF: 0 insulin glargine 100 UNITS/ML insulin pen 20 units subcut QHS RF: 0 escitalopram oxalate 10 MG tablet 20 mg PO DAILY RF: 0 zolpidem 5 MG tablet 5 mg PO QHS RF: 0 meloxicam 15 MG tablet 15 mg PO DAILY RF: 0 famotidine 20 MG tablet 20 mg PO QHS RF: 0 promethazine 25 MG tablet 25 mg PO Q8H PRN (Reason: Nausea) RF: 0 metoprolol succinate 50 mg Tablet Extended Release 24 Hr 50 mg PO DAILY RF: 0 Primary Care Provider: Joaquim Burks Referrals: Joaquim Burks DO [Primary Care Provider] - Disposition Disposition: Acute Care Hospital [facility]
[2021-01-13 17:39] LABS: Anion Gap 9 (5-15); BUN 21 mg/dL (7-18); BUN/Creat Ratio 15.8 RATIO (10-20); Calcium,Total 9.3 mg/dL (8.5-10.1); Chloride 99 mmol/L (98-107); Creatinine, Serum 1.33 mg/dL (0.55-1.02); EST Glomerular Filtration Rate 44 mL/min (>60); Est Glom Filt Rate - Afr Amer 53 mL/min (>60); Estimated Creatinine Clearance 43.01 ml/min; Glucose 327 mg/dL (74-106); Potassium 4.2 mmol/L (3.5-5.1); Sodium Level 130 mmol/L (136-145); Troponin-I HS 5.6 pg/mL (3.0-53.7)
[2021-01-13 17:51] LABS: D-Dimer Quantitative (DVT/PE) <= 0.27 FEU/ug/m (0.27-0.49)
--- NOTE | 2021-01-13 18:37 | PCM.HP.STD ---
HPI - General General Date of Admission: 01/13/21 HPI Narrative FER ARORA, is a 55 F who presented to the emergency department [facility] on 01/13/2021 with a chief complaint of chest pain. She states that it only substernal with no radiation to her jaw back or arms. She denies any associated nausea, shortness of breath, diaphoresis, or worsening with exertion. She states it started while she was sitting and has no exacerbating or remitting factors. She has a history of uncontrolled diabetes, hypertension, and is a former smoker. Her heart score on admission is 4. She had a negative stress test approximately 18 months ago. She is afebrile with mild tachycardia and a heart rate of 109 that appears sinus tach, she is hypertensive with systolic pressures anywhere from 147-197 and diastolic pressures 82-109, her respiratory rate is 18 and she satting 96% on room air. Her CBC is unremarkable. Her D-dimer is negative. His BMP shows mild chronic hyponatremia which is probably related to her hyperglycemia. She has stable CKD stage IIIb but her blood sugar is 327. Her initial high-sensitivity troponin was 5.6. Her EKG shows no signs consistent with acute ischemia. Her chest x-ray is unremarkable. I have low suspicion that this is cardiac in nature but with her significant risk factors we will admit her for observation and stress test in the morning. [facility] Medical History (Updated 01/13/21 @ 18:[address] Leanna Quinones, ) Acute pancreatitis Acute respiratory failure EMILIO (acute kidney injury) Angioedema Anxiety Anxiety and depression Bloody diarrhea C. difficile diarrhea Chest pain COPD (chronic obstructive pulmonary disease) COPD exacerbation Depression Difficulty breathing Former tobacco use GERD (gastroesophageal reflux disease) Hiatal hernia Hyperglycemia Hyperlipidemia Hypertension Morbid obesity Morbid obesity Neck pain SHARMIN (obstructive sleep apnea) Tracheostomy dependence Type II diabetes mellitus Upper airway obstruction Home Medications loratadine 10 mg PO DAILY 12/16/16 [History Last Taken 08/27/19] glimepiride 4 mg PO BID 05/25/17 [History Last Taken 08/27/19] lansoprazole 30 mg PO DAILY 07/06/18 [History Last Taken 04/07/20 08:00] buspirone 10 mg PO TID 02/20/19 [History Last Taken 08/27/19] spironolactone 50 mg PO DAILY 02/20/19 [History Last Taken 08/27/19] insulin glargine 20 units SUBCUT QHS 07/10/19 [History Last Taken 08/26/19] escitalopram oxalate 20 mg PO DAILY 11/08/19 [History Last Taken Unknown] zolpidem 5 mg PO QHS 03/15/20 [History Last Taken Unknown] famotidine 20 mg PO QHS 09/21/20 [History Last Taken Unknown] meloxicam 15 mg PO DAILY 09/21/20 [History Last Taken Unknown] promethazine 25 mg PO Q8H PRN 09/21/20 [History Last Taken Unknown] metoprolol succinate 50 mg PO DAILY 01/13/21 [History Last Taken Unknown] Allergy/AdvReac Type Severity Reaction Status Date / Time bupropion [From Wellbutrin] Allergy Angioedema Verified 01/13/21 16:32 lisinopril Allergy Angioedema Verified 01/13/21 16:32 sulfamethoxazole Allergy Rash Verified 01/13/21 16:32 [From Bactrim] trimethoprim [From Bactrim] Allergy Rash Verified 01/13/21 16:32 aspirin AdvReac Nausea/Vom/ Verified 01/13/21 16:32 Diarrhea hydrocodone [From Vicodin] AdvReac Nausea/Vom/ Verified 01/13/21 16:32 Diarrhea Surgical History s/p bladder sling S/P laparoscopic cholecystectomy s/p novasure S/P tubal ligation Status post tracheostomy Social History Smoking Status: Former smoker substance use type: does not use ROS Constitutional Constitutional: Denies anorexia, change in weight, chills, fatigue, fever(s), malaise, night sweats, weakness or other Eyes Eyes: Denies blurry vision, change in eye color, change in vision, discharge from eye(s), double vision, erythema, eye pain, loss of vision or other ENT HEENT: Denies abnormal hearing, dysphagia, ear pain, epistaxis, headache(s), hearing loss, nasal congestion, nasal discharge, post nasal drip, sinus pressure, sore throat or other Cardiovascular Cardiovascular: Reports chest pain and lightheadedness; Denies claudication, dyspnea on exertion, edema, orthopnea, palpitations, paroxysmal nocturnal dyspnea, rapid heart rate, syncope or other Respiratory/Chest Respiratory/Chest: Denies cough, dyspnea, excessive phlegm production, hemoptysis, productive cough, shortness of breath at rest, shortness of breath with exertion, wheezing or other Gastrointestinal Gastrointestinal: Reports nausea and other Details: Nausea is chronic ; Denies abdominal pain, coffee ground emesis, constipation, diarrhea, dyspepsia, hematemesis, hematochezia, loose stools, melena or vomiting Genitourinary Genitourinary: Denies burning urination, difficulty urinating, dysuria, hematuria, nocturia, urinary frequency, urinary hesitancy, urinary incontinence, urinary urgency or other Musculoskeletal Musculoskeletal: Reports arthralgias, back pain, joint pain and joint stiffness; Denies joint swelling, myalgias, neck pain or other Neurologic Neurologic: Denies abnormal gait, abnormal speech, confusion, disequilibrium, dizziness, focal weakness, headache(s), numbness, paresthesias, seizure-like activity, seizures, syncope, tingling, tremor(s) or other Psychiatric Psychiatric: Denies anxiety, depression, homicidal ideation, suicidal ideation or other Endocrine Endocrinology: Denies change in body appearance, cold intolerance, excessive sweating, heat intolerance, polydipsia, polyuria or other Hematologic/Lymphatic Hematologic/Lymphatic: Denies anemia, easy bleeding, easy bruising, lymphadenopathy or other Allergic/Immunologic Allergic/Immunologic: Denies rhinitis, hives, eczemia, asthma or other Vital Signs Vital Signs Vital Signs: 01/13/21 16:29 01/13/21 16:36 01/13/21 17:04 Temperature 98.6 F Temperature Source Oral Pulse Rate 122 H Respiratory Rate 18 Respiratory Effort Short of Breath Respiratory Pattern Normal Blood Pressure 197/109 H Blood Pressure Mean 138 Pulse Ox 97 Oxygen Delivery Method Room Air Room Air 01/13/21 17:05 01/13/21 18:00 Temperature Temperature Source Pulse Rate 108 H 109 H Respiratory Rate 15 18 Respiratory Effort Respiratory Pattern Blood Pressure 147/82 H 164/100 H Blood Pressure Mean 103 121 Pulse Ox 95 96 Oxygen Delivery Method Room Air Room Air Weight Weight: 115.3 kg Body Mass Index (BMI) 42.3 Physical Exam Const alert, oriented x3 and no apparent distress Constitutional Narrative: Morbidly obese white female sitting up in bed, appears comfortable, nontoxic, states that she feels tingly all over and like her head is swelling. General Appearance: cooperative HEENT normocephalic, head/scalp atraumatic, hearing grossly normal bilaterally, moist oral mucous membranes and oropharynx normal; Negative for dentition normal HEENT Narrative: Poor dentition, Mallampati 2 Mouth: oral and palatal mucosa normal Eyes PERRL, EOMs intact bilaterally and conjunctivae normal Neck no lymphadenopathy, supple, no JVD and no carotid bruits Neck Narrative: Trachea midline, no thyroid enlargement or nodules noted Resp normal respiratory effort, no retractions and no use of accessory muscles Resp Narrative: Diffusely diminished but clear Auscultation: Negative for crackles, rales, rhonchi or wheezes Cardio regular rhythm, S1 normal heart sound, S2 normal heart sound, no murmurs, no rub, no gallops, no clicks and no JVD Cardio Narrative: Mild tachycardia GI normal to inspection, nondistended, normoactive bowel sounds, soft to palpation, non-tender and non-distended GI Narrative: Obese Extremity normal to inspection, full ROM and no clubbing, cyanosis or edema Peripheral Pulses: Yes pulses 2+ throughout Skin no rashes or lesions noted, no wounds, skin turgor normal, no jaundice, no petechiae and no mottling Skin Narrative: Pale skin Neuro oriented x3, CN's II-XII intact bilaterally and moves all extremities Sensorium / Orientation: awake, alert, oriented to person, oriented to place and oriented to time Speech: speech normal Psych Psych Narrative: Very flat affect, mood seems depressed Mood & Affect: depressed Results Lab / Micro Data Result Diagrams: 01/13/21 16:50 01/13/21 16:50 Labs: Laboratory Results - last 24 hr 01/13/21 16:50: WBC 7.9, RBC 5.04, Hgb 15.2 H, Hct 44.5, MCV 88.3, MCH 30.2, MCHC 34.2, RDW Std Deviation 41.7, RDW Coeff of Cecil 12.8, Plt Count 246, MPV 11.0, Immature Gran % (Auto) 1.300 H, Neut % (Auto) 62.6, Lymph % (Auto) 25.8, Churchill % (Auto) 7.1, Eos % (Auto) 2.2, Baso % (Auto) 1.0, Absolute Neuts (auto) 4.9, Absolute Lymphs (auto) 2.03, Nucleated RBC % 0 01/13/21 16:50: Sodium 130 L, Potassium 4.2, Chloride 99, Carbon Dioxide 22.0, Anion Gap 9, BUN 21 H, Creatinine 1.33 H, Estim Creat Clear Calc 43.01, Est GFR (MDRD) Af Amer 53 L, Est GFR (MDRD) Non-Af 44 L, BUN/Creatinine Ratio 15.8, Glucose 327 H, Calcium 9.3, Troponin I High Sens 5.6 01/13/21 17:00: D-Dimer Quant (PE/DVT) <= 0.27 Radiology Impression Chest X-Ray 01/13/21 17:06 IMPRESSION: No radiographic evidence of acute cardiopulmonary disease. at 1738 Reported and signed by: Tacos Gonzalez MD Electronically Signed: Tacos Gonzalez MD at 17:36 EDT Tel , Service support , Assessment & Plan Assessment/Plan (1) Hypertension: QUALIFIERS: Hypertension type: essential hypertension Qualified Code(s): I10 - Essential (primary) hypertension (2) Hyperlipidemia: QUALIFIERS: Hyperlipidemia type: unspecified Qualified Code(s): E78.5 - Hyperlipidemia, unspecified (3) Type II diabetes mellitus: QUALIFIERS: Diabetes mellitus complication status: with other specified complication Diabetes mellitus intermediate teacher insulin use: without intermediate teacher use Qualified Code(s): E11.69 - Type 2 diabetes mellitus with other specified complication (4) Morbid obesity: (5) Former tobacco use: (6) Atypical chest pain: PLAN: Atypical chest pain -Initial troponin is negative and EKG shows no signs consistent with acute ischemia -Continue home beta-haley -High-dose statin -Aspirin-patient states she will be able to take low-dose but refused 324 mg on admission -Check lipids -Patient with known uncontrolled diabetes -Cycle cardiac enzymes -Stress test in a.m. if enzymes remain negative DM-2 uncontrolled -Continue Lantus -Hold glimepiride -Moderate dose sliding scale insulin -Accu-Cheks -Titrate insulin as needed Hypertension -Patient has elevated blood pressure and heart rate in the emergency department -As needed labetalol as ordered for systolic pressures greater than 160 -Continue home metoprolol 50 mg daily -Continue Aldactone -Patient with history of angioedema and this is why she is not on an SHAHBAZ inhibitor Hyperlipidemia -Patient is not on any medication at baseline -Check lipids -Start high-dose statin Chronic nausea -Most likely gastroparesis related to her poorly controlled diabetes -Patient is on Phenergan at home every 6 hours as needed -We will continue this currently -May need outpatient gastric emptying study Chronic pain -Hold meloxicam GERD -Continue PPI/famotidine Depression/insomnia -Continue zolpidem -Continue BuSpar -Continue Lexapro DVT prophylaxis -Enoxaparin 40 mg twice daily CODE STATUS -Full code Charges/Coding Visit Charges Inpatient E&M: 30028 Init Hosp L3
--- NOTE | 2021-01-13 18:49 | EKG12_ITS ---
Test Reason : CP ADMIT Blood Pressure : / mmHG Vent. Rate : 089 BPM Atrial Rate : 089 BPM P-R Int : 160 ms QRS Dur : 080 ms QT Int : 356 ms P-R-T Axes : 040 -15 056 degrees QTc Int : 433 ms Normal sinus rhythm Inferior infarct , age undetermined Abnormal ECG Confirmed by LILLIAN LEPE, JUWAN ([id number]), communications editor JASPAL TRUJILLO ([id number]) on 01/16/2021 10:20:54 AM Referred By: SANTIAGO Confirmed By:JUWAN SNYDER MD
[2021-01-13 19:56] LABS: Troponin-I HS 4.7 pg/mL (3.0-53.7)
[2021-01-13] MEDS: Zolpidem Tartrate 5 MG Tablet PO (21:32)
[2021-01-13] MEDS: Famotidine 20 MG Tablet PO (21:32)
[2021-01-13] MEDS: busPIRone 5 MG Tablet 10 MG PO (21:32)
[2021-01-13] MEDS: Atorvastatin Calcium 80 MG Tablet PO (21:32)
[2021-01-13] MEDS: Enoxaparin 40 MG/0.4 ML Syringe SC (21:33)
[2021-01-13] MEDS: Insulin Lispro 100 UNIT/ML INSULN.PEN SC (21:33)
[2021-01-13 22:50] LABS: Bedside Glucose 175 mg/dL (70-110)
[2021-01-13 23:18] LABS: Troponin-I HS 6.7 pg/mL (3.0-53.7)
[2021-01-14 02:30] VITALS: BP 139/78; PULSE 83; RESP 18; TEMP 36.5; O2SAT 97
[2021-01-14 03:03] VITALS: PULSE 79
[2021-01-14 06:06] LABS: Absolute Lymphocyte Count 2.23 X10^3/uL (0.83-4.51); Absolute Neutrophil Count 3.1 X10^3/uL (2.0-7.7); Basophil# 0.07 X10^3/uL; Basophil% 1.1 % (0-1); Eosinophil# 0.16 X10^3/uL; Eosinophils% 2.6 % (0-5); Hematocrit 41.2 % (37-47); Hemoglobin 13.7 g/dL (12.0-15.0); Lymphocyte # 2.23 X10^3/ul (0.83-4.51); Lymphocyte % 36.4 % (19-41); Mean Corp Hgb Conc 33.3 g/dL (32-36); Mean Corpuscular Hgb 29.7 pg (27.0-32.0); Mean Corpuscular Volume 89.4 fL (81-99); Mean Platelet Vol. 10.8 fl (6.2-12.0); Monocyte# 0.55 X10^3/uL; NRBC Flagged by Analyzer 0 % (0-5); Neutrophil # 3.06 X10^3/uL (2.7-7.7); Neutrophil % 50.1 % (47-70); Platelet Count 214 K/mm3 (150-450); RBC Distribution Width CV 12.7 % (11.6-14.6); RBC Distribution Width SD 41.7 fl (35.1-43.9); Red Blood Count 4.61 M/mm3 (4.2-5.4); White Blood Count 6.1 K/mm3 (4.4-11.0)
[2021-01-14 06:29] VITALS: BP 157/79; PULSE 85; RESP 18; TEMP 36.4; O2SAT 96
[2021-01-14] MEDS: busPIRone 5 MG Tablet 10 MG PO (06:31)
[2021-01-14] MEDS: Aspirin E.C. 81 MG Tablet PO (06:31)
[2021-01-14] MEDS: 0.9% Saline Lock 10 ML Syringe IV (06:33)
[2021-01-14 06:45] LABS: Bedside Glucose 181 mg/dL (70-110)
[2021-01-14 06:50] LABS: ALB/GLOB Ratio 0.9 RATIO (0.9-2.4); AST(SGOT) 23 U/L (15-37); Alanine Aminotransfer ALT/SGPT 26 U/L (13-56); Albumin, Serum 3.5 g/dL (3.2-5.0); Alkaline Phosphatase 80 U/L (45-117); Anion Gap 8 (5-15); BUN 19 mg/dL (7-18); BUN/Creat Ratio 21.4 RATIO (10-20); Calcium,Total 9.1 mg/dL (8.5-10.1); Chloride 103 mmol/L (98-107); Cholesterol 222 mg/dL (200); Creatinine, Serum 0.89 mg/dL (0.55-1.02); EST Glomerular Filtration Rate 70 mL/min (>60); Est Glom Filt Rate - Afr Amer 85 mL/min (>60); Estimated Creatinine Clearance 64.27 ml/min; Globulin 3.7 g/dL (2.2-4.2); Glucose 179 mg/dL (74-106); High Density Lipoprotein 23 mg/dL; Magnesium 1.6 mg/dL (1.6-2.6); Potassium 3.7 mmol/L (3.5-5.1); Protein, Total 7.2 g/dL (6.4-8.2); Sodium Level 134 mmol/L (136-145); Thyroid Stim Hormone (TSH) 1.41 uIU/mL (0.358-3.74); Triglycerides 493 mg/dL
[2021-01-14 07:00] VITALS: PULSE 73
[2021-01-14 10:57] VITALS: BP 155/89; PULSE 81; RESP 14; TEMP 36.6; O2SAT 97
[2021-01-14 11:03] VITALS: PULSE 81
[2021-01-14] MEDS: Loratadine 10 MG Tablet PO (11:03)
[2021-01-14] MEDS: Pantoprazole Sodium 40 MG Tablet PO (11:03)
[2021-01-14] MEDS: Metoprolol(XL)Succ 50 MG Tablet PO (11:03)
[2021-01-14] MEDS: Escitalopram Oxalate 20 MG Tablet PO (11:03)
[2021-01-14] MEDS: Spironolactone 50 MG Tablet PO (11:04)
[2021-01-14] MEDS: proMETHazine 25 MG Tablet PO (11:06)
[2021-01-14] MEDS: Insulin Lispro 100 UNIT/ML INSULN.PEN SC (11:11)
[2021-01-14 11:21] LABS: Bedside Glucose 207 mg/dL (70-110)
--- NOTE | 2021-01-14 11:21 | PCM.DC ---
Discharge Instructions Diet Discharge Diet: Low fat / Low cholesterol and Carb Control Diet Activity Discharge Activity: Return to Normal Activity Dressing / Incision Call your doctor if you observe: Shortness of breath, Dizziness and Chest pain Follow Up Care Test Results: Test results from this visit will be discussed in further detail at your follow-up appointment, if applicable. Discharge Plan Admission Admit Date/Time: 01/13/21 18:20 Primary Reason for Your Visit: Chest pain Attending Provider: Lauryn Vogel Primary Care Provider: Joaquim Burks Discharge Orders/Prescriptions Prescriptions: New atorvastatin 20 mg tablet 20 mg PO QHS Qty: 30 RF: 0 Continued loratadine 10 MG tablet 10 mg PO DAILY RF: 0 glimepiride 4 MG tablet 4 mg PO BID RF: 0 lansoprazole 30 MG capsule,delayed release(DR/EC) 30 mg PO DAILY RF: 0 buspirone 7.5 MG tablet 10 mg PO TID RF: 0 spironolactone 50 MG tablet 50 mg PO DAILY RF: 0 insulin glargine 100 UNITS/ML insulin pen 20 units subcut QHS RF: 0 escitalopram oxalate 10 MG tablet 20 mg PO DAILY RF: 0 zolpidem 5 MG tablet 10 mg PO QHS RF: 0 meloxicam 15 MG tablet 15 mg PO DAILY RF: 0 famotidine 20 MG tablet 20 mg PO QHS RF: 0 promethazine 25 MG tablet 25 mg PO Q8H PRN (Reason: Nausea) RF: 0 metoprolol succinate 50 mg Tablet Extended Release 24 Hr 50 mg PO DAILY RF: 0 Referrals / Follow Up: Joaquim Burks DO [Primary Care Provider] - In 1 Week Disposition Disposition (needs filled in before D/C Order can be placed): Home, Self Care
--- NOTE | 2021-01-14 12:57 | STRESSREP ---
Stress Test Report Myocardial perfusion stress test. 55-year-old lady with a history of chest pain pain Stress protocol: Resting EKG demonstrates normal sinus rhythm with a rate of 85 bpm normal intervals are noted resting blood pressure is 142/92 mmHg. 0.4 mg of regadenoson was infused per usual protocol followed by rapid venous saline flush injection. Continuous EKG monitoring was performed. The maximum heart rate attained was 117 bpm which was 70% of maximum predicted heart rate. The maximum workload was 1 metabolic equivalent. At rest there were no ST or T wave changes noted to suggest abnormal flow reserve and at peak infusion nonspecific ST changes were noted with did not meet the criteria for ischemia. No clinical angina was noted. The peak blood pressure was 172/98 mmHg. Myocardial perfusion protocol. 15.0 mCi of technetium 99m sestamibi was injected at rest. 0.4 mg of regadenoson was infused per usual protocol. At peak infusion 44.1 mCi of technetium 99m sestamibi was injected stress images were obtained stress and rest images were reconstructed and compared in the short axis vertical long and horizontal long axis. Gated images were also obtained. Perfusion SPECT analysis: Review of the stress images demonstrate normal uptake of tracer noted in all areas of the myocardium. The resting images similarly demonstrated normal uptake of tracer noted in all areas of the myocardium. No areas of reversibility are noted to suggest ischemia no previous infarct is noted. Gated SPECT analysis: The gated ejection fraction is noted to be 62%. Conclusion: Normal pharmacologic myocardial perfusion stress test. Preserved ejection fraction.
--- NOTE | 2021-01-14 12:58 | DS.PCM_ITS ---
Documented by User: Jayde Harden NP, MANAGER OF PHOTOGRAPHY-C 01/14/21 13:05 Providers Date of Admission: 01/13/21 Date of Discharge: 01/14/21 Primary Care Physician: Dr. Joaquim Burks DO Reason For Visit: CHEST PAIN Diagnosis Discharge Diagnosis (1) Hypertension: Status: Chronic Code(s): I10 - Essential (primary) hypertension Qualifiers: Hypertension type: essential hypertension Qualified Code(s): I10 - Essential (primary) hypertension (2) Hyperlipidemia: Status: Chronic Code(s): E78.5 - Hyperlipidemia, unspecified Qualifiers: Hyperlipidemia type: unspecified Qualified Code(s): E78.5 - Hyperlipidemia, unspecified (3) Type II diabetes mellitus: Status: Chronic Code(s): E11.9 - Type 2 diabetes mellitus without complications Qualifiers: Diabetes mellitus complication status: with other specified complication Diabetes mellitus ad terminal makeup operator insulin use: without ad terminal makeup operator use Qualified Code(s): E11.69 - Type 2 diabetes mellitus with other specified complication (4) Morbid obesity: Status: Chronic Code(s): E66.01 - Morbid (severe) obesity due to excess calories (5) Former tobacco use: Status: Chronic Code(s): Z87.891 - Personal history of nicotine dependence (6) Atypical chest pain: Status: Acute Code(s): R07.89 - Other chest pain Medications at Discharge Home Medications loratadine 10 mg PO DAILY 12/16/16 glimepiride 4 mg PO BID 05/25/17 lansoprazole 30 mg PO DAILY 07/06/18 buspirone 10 mg PO TID 02/20/19 spironolactone 50 mg PO DAILY 02/20/19 insulin glargine 20 units SUBCUT QHS 07/10/19 escitalopram oxalate 20 mg PO DAILY 11/08/19 zolpidem 10 mg PO QHS 03/15/20 famotidine 20 mg PO QHS 09/21/20 meloxicam 15 mg PO DAILY 09/21/20 promethazine 25 mg PO Q8H PRN 09/21/20 metoprolol succinate 50 mg PO DAILY 01/13/21 atorvastatin 20 mg PO QHS #30 tab 01/14/21 Hospital Course Operations None Procedures Nuclear stress test Summary of Care Provided Minutes Spent on Discharge: 35 Hospital Course: Patient is a 55-year-old female admitted 01/13/2021 due to chest pain. 1. Atypical chest pain, ACS ruled out-troponin negative. Patient underwent nuclear stress test which was negative for ischemia. Symptoms have resolved. Follow-up with PCP in 1 week. 2. Type 2 diabetes mellitus, uncontrolled-continue home oral regimen and Lantus regimen. Outpatient follow-up for further insulin/oral med titration. 3. Hypertension-stable, continue metoprolol, Aldactone. 4. Hyperlipidemia-initiated on atorvastatin 20 mg nightly. Reported allergy to Crestor. If patient is able to tolerate statin, may need increase in dosage as outpatient. 5. Anxiety/depression-on BuSpar, Lexapro. 6. Chronic COPD-no exacerbation. 7. Morbid obesity-encouraged diet and lifestyle modifications. 8. GERD/chronic nausea/likely gastroparesis-on famotidine and PPI. As needed antiemetics. 9. SHARMIN-on CPAP. Patient seen and examined prior to discharge. Physical assessment as noted below. Patient is stable for discharge with follow up recommendations as noted above. This patient was seen by JOEY Shay under the supervision of Dr. Vogel. Physical Exam Const alert, oriented x3 and no apparent distress Orientation / Consciousness: awake, oriented to person, oriented to place and oriented to time HEENT normocephalic and moist oral mucous membranes Eyes PERRL, EOMs intact bilaterally and conjunctivae normal Neck no lymphadenopathy Resp normal respiratory effort and clear to auscultation bilaterally Cardio regular rate, regular rhythm and no murmurs Peripheral Pulses: pulses 2+ throughout GI normal to inspection, nondistended, normoactive bowel sounds, non-tender and non-distended Extremity normal to inspection Skin no rashes or lesions noted Lesions: no lesions Rashes: no rashes Trauma: no lacerations or abrasions Neuro CN's II-XII intact bilaterally, no focal motor deficits, no sensory deficits noted and deep tendon reflexes 2+ bilaterally Psych mental status grossly normal and affect normal Weight / BMI Weight Weight: 252 lb Body Mass Index (BMI) 41.9 ABG / Lab / Microbiology Data Result Diagrams: 01/14/21 05:58 01/14/21 05:58 Laboratory: Laboratory Results - last 24 hr 01/13/21 16:50: WBC 7.9, RBC 5.04, Hgb 15.2 H, Hct 44.5, MCV 88.3, MCH 30.2, MCHC 34.2, RDW Std Deviation 41.7, RDW Coeff of Cecil 12.8, Plt Count 246, MPV 11.0, Immature Gran % (Auto) 1.300 H, Neut % (Auto) 62.6, Lymph % (Auto) 25.8, [place] % (Auto) 7.1, Eos % (Auto) 2.2, Baso % (Auto) 1.0, Absolute Neuts (auto) 4.9, Absolute Lymphs (auto) 2.03, Nucleated RBC % 0 01/13/21 16:50: Sodium 130 L, Potassium 4.2, Chloride 99, Carbon Dioxide 22.0, Anion Gap 9, BUN 21 H, Creatinine 1.33 H, Estim Creat Clear Calc 43.01, Est GFR (MDRD) Af Amer 53 L, Est GFR (MDRD) Non-Af 44 L, BUN/Creatinine Ratio 15.8, Glucose 327 H, Calcium 9.3, Troponin I High Sens 5.6 01/13/21 17:00: D-Dimer Quant (PE/DVT) <= 0.27 01/13/21 19:18: Troponin I High Sens 4.7 01/13/21 21:31: POC Glucose 175 H 01/13/21 22:35: Troponin I High Sens 6.7 01/14/21 05:58: WBC 6.1, RBC 4.61, Hgb 13.7, Hct 41.2, MCV 89.4, MCH 29.7, MCHC 33.3, RDW Std Deviation 41.7, RDW Coeff of [place] 12.7, Plt Count 214, MPV 10.8, Immature Gran % (Auto) 0.800, Neut % (Auto) 50.1, Lymph % (Auto) 36.4, [place] % (Auto) 9.0, Eos % (Auto) 2.6, Baso % (Auto) 1.1 H, Absolute Neuts (auto) 3.1, Absolute Lymphs (auto) 2.23, Nucleated RBC % 0 01/14/21 05:58: Sodium 134 L, Potassium 3.7, Chloride 103, Carbon Dioxide 23.0, Anion Gap 8, BUN 19 H, Creatinine 0.89, Estim Creat Clear Calc 64.27, Est GFR (MDRD) Af Amer 85, Est GFR (MDRD) Non-Af 70, BUN/Creatinine Ratio 21.4 H, Gluc ose 179 H, Calcium 9.1, Phosphorus 3.0, Magnesium 1.6, Total Bilirubin 0.30, AST 23, ALT 26, Alkaline Phosphatase 80, Total Protein 7.2, Albumin 3.5, Globulin 3.7, Albumin/Globulin Ratio 0.9, Triglycerides 493 H, Cholesterol 222 H, LDL Cholesterol TNP, VLDL Cholesterol TNP, HDL Cholesterol 23 L, TSH 1.41 01/14/21 06:30: POC Glucose 181 H 01/14/21 11:10: POC Glucose 207 H Radiography Diagnostic Testing: Radiology Impression Chest X-Ray 01/13/21 17:06 IMPRESSION: No radiographic evidence of acute cardiopulmonary disease. at 1738 Reported and signed by: Tacos Gonzalez MD Electronically Signed: Tacos Gonzalez MD at 17:36 EDT Tel , Service support , D/C Instructions Discharge Diet: Low fat / Low cholesterol and Carb Control Diet Call your doctor if you observe: Shortness of breath, Dizziness and Chest pain Meaningful Use Info Meaningful Use Diagnoses (Choose all that apply): None applicable Discharge Plan Admission Admit Date/Time: 01/13/21 18:20 Primary Reason for Your Visit: Chest pain Attending Provider: Lauryn Vogel Primary Care Provider: Joaquim Burks Discharge Orders/Prescriptions Prescriptions: New atorvastatin 20 mg tablet 20 mg PO QHS Qty: 30 RF: 0 Continued loratadine 10 MG tablet 10 mg PO DAILY RF: 0 glimepiride 4 MG tablet 4 mg PO BID RF: 0 lansoprazole 30 MG capsule,delayed release(DR/EC) 30 mg PO DAILY RF: 0 buspirone 7.5 MG tablet 10 mg PO TID RF: 0 spironolactone 50 MG tablet 50 mg PO DAILY RF: 0 insulin glargine 100 UNITS/ML insulin pen 20 units subcut QHS RF: 0 escitalopram oxalate 10 MG tablet 20 mg PO DAILY RF: 0 zolpidem 5 MG tablet 10 mg PO QHS RF: 0 meloxicam 15 MG tablet 15 mg PO DAILY RF: 0 famotidine 20 MG tablet 20 mg PO QHS RF: 0 promethazine 25 MG tablet 25 mg PO Q8H PRN (Reason: Nausea) RF: 0 metoprolol succinate 50 mg Tablet Extended Release 24 Hr 50 mg PO DAILY RF: 0 Referrals / Follow Up: Joaquim Burks DO [Primary Care Provider] - In 1 Week Disposition Disposition (needs filled in before D/C Order can be placed): Home, Self Care Documented by User: Dr. Lauryn Vogel MD 01/14/21 16:43 Providers Date of Admission: 01/13/21 Reason For Visit: CHEST PAIN Medications at Discharge Home Medications loratadine 10 mg PO DAILY 12/16/16 glimepiride 4 mg PO BID 05/25/17 lansoprazole 30 mg PO DAILY 07/06/18 buspirone 10 mg PO TID 02/20/19 spironolactone 50 mg PO DAILY 02/20/19 insulin glargine 20 units SUBCUT QHS 07/10/19 escitalopram oxalate 20 mg PO DAILY 11/08/19 zolpidem 10 mg PO QHS 03/15/20 famotidine 20 mg PO QHS 09/21/20 meloxicam 15 mg PO DAILY 09/21/20 promethazine 25 mg PO Q8H PRN 09/21/20 metoprolol succinate 50 mg PO DAILY 01/13/21 atorvastatin 20 mg PO QHS #30 tab 01/14/21 ABG / Lab / Microbiology Data Result Diagrams: 01/14/21 05:58 01/14/21 05:58 Discharge Plan Admission Admit Date/Time: 01/13/21 18:20 Primary Reason for Your Visit: Chest pain Attending Provider: Lauryn Vogel Primary Care Provider: Joaquim Burks Discharge Orders/Prescriptions Prescriptions: New atorvastatin 20 mg tablet 20 mg PO QHS Qty: 30 RF: 0 Continued loratadine 10 MG tablet 10 mg PO DAILY RF: 0 glimepiride 4 MG tablet 4 mg PO BID RF: 0 lansoprazole 30 MG capsule,delayed release(DR/EC) 30 mg PO DAILY RF: 0 buspirone 7.5 MG tablet 10 mg PO TID RF: 0 spironolactone 50 MG tablet 50 mg PO DAILY RF: 0 insulin glargine 100 UNITS/ML insulin pen 20 units subcut QHS RF: 0 escitalopram oxalate 10 MG tablet 20 mg PO DAILY RF: 0 zolpidem 5 MG tablet 10 mg PO QHS RF: 0 meloxicam 15 MG tablet 15 mg PO DAILY RF: 0 famotidine 20 MG tablet 20 mg PO QHS RF: 0 promethazine 25 MG tablet 25 mg PO Q8H PRN (Reason: Nausea) RF: 0 metoprolol succinate 50 mg Tablet Extended Release 24 Hr 50 mg PO DAILY RF: 0 Referrals / Follow Up: Joaquim Burks DO [Primary Care Provider] - In 1 Week Disposition Disposition (needs filled in before D/C Order can be placed): Home, Self Care Charges/Coding Addendum Addendum: This patient was seen in conjunction with Jayde Harden. I have independently interviewed and examined the patient and reviewed pertinent historical, laboratory, and other data. I have reviewed her note and concur with her documentation 55-year-old female with multiple comorbidities who presented with chest pain. Patient's admitting EKG was negative for acute ST changes. She was admitted to the telemetry floor and underwent stress test that was unremarkable. She was discharged to follow-up with the primary care doctor. On the day of discharge, patient was seen and examined. Denied any new complaint. Physical Exam: Gen: Comfortable, not pale, not jaundiced CVS:HS I +II, regular, no murmurs RESP: CTA GI: BS present and normal, soft, nontender, no palpable organs EXT:No edema Visit Charges OBSV E&M: 28924 Observation care discharge
--- NOTE | 2021-01-14 13:33 | PHA.DC.MC ---
Pharmacy Service has performed discharge medication reconciliation and counseling for this patient. 1. 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 Home Medications loratadine 10 mg PO DAILY 12/16/16 glimepiride 4 mg PO BID 05/25/17 lansoprazole 30 mg PO DAILY 07/06/18 buspirone 10 mg PO TID 02/20/19 spironolactone 50 mg PO DAILY 02/20/19 insulin glargine 20 units SUBCUT QHS 07/10/19 escitalopram oxalate 20 mg PO DAILY 11/08/19 zolpidem 10 mg PO QHS 03/15/20 famotidine 20 mg PO QHS 09/21/20 meloxicam 15 mg PO DAILY 09/21/20 promethazine 25 mg PO Q8H PRN 09/21/20 metoprolol succinate 50 mg PO DAILY 01/13/21 atorvastatin 20 mg PO QHS #30 tab 01/14/21 The patient was counseled on the following discharge medications and changes in medications for homegoing were reviewed. The Reason for Use, instructions for use, and potential side effects were reviewed for all new medications. The patient's questions regarding all of their medications were answered. The patient was able to verbally demonstrate an understanding of their discharge medications.
== END 2021-01-14 11:22 | disposition home or self-care (01) ==
LOC: ED 18:18 → PCU 18:26
PROVIDERS: Admitting Provider Internal Medicine; Emergency Provider Emergency Medicine; PCP Student in an Organized Health Care Education/Training Program; Visit Provider Internal Medicine
DX: R07.89 Other chest pain (principal); E78.5 Hyperlipidemia, unspecified; R00.2 Palpitations; R06.02 Shortness of breath; K21.9 Gastro-esophageal reflux disease without esophagitis; J44.9 Chronic obstructive pulmonary disease, unspecified; F32.9 Major depressive disorder, single episode, unspecified; I12.9 Hypertensive chronic kidney disease with stage 1 through stage 4 chronic kidney disease, or unspecified chronic kidney disease; N18.32 Chronic kidney disease, stage 3b; E11.22 Type 2 diabetes mellitus with diabetic chronic kidney disease; F41.9 Anxiety disorder, unspecified; G47.33 Obstructive sleep apnea (adult) (pediatric); E66.01 Morbid (severe) obesity due to excess calories; K44.9 Diaphragmatic hernia without obstruction or gangrene; G89.29 Other chronic pain; E87.1 Hypo-osmolality and hyponatremia; E11.65 Type 2 diabetes mellitus with hyperglycemia; Z79.899 Other long term (current) drug therapy; Z79.4 Long term (current) use of insulin; Z87.891 Personal history of nicotine dependence; Z93.0 Tracheostomy status; Z68.41 Body mass index [BMI] 40.0-44.9, adult
CPT/HCPCS: 36415; 71045; 78452; 80048; 80053; 80061; 82962; 83735; 84100; 84443; 84484; 85025; 85379; 93005; 93017; 96372; 99218; 99251; 99285; A9500; A4216; G0378; G0463; J2785

== ENCOUNTER 2021-01-17 16:46 | Emergency (ER) | payer MEDICARE, MEDICAID, SELFPAY ==
[2021-01-13 18:58] VITALS: BMI 41.9
[2021-01-17 16:47] VITALS: BP 151/137; PULSE 114; PULSE 115; RESP 16; RESP 22; TEMP 36.9; O2SAT 94; BMI 42.3
--- NOTE | 2021-01-17 16:57 | EKG12_ITS ---
Test Reason : CP Blood Pressure : / mmHG Vent. Rate : 107 BPM Atrial Rate : 107 BPM P-R Int : 156 ms QRS Dur : 082 ms QT Int : 352 ms P-R-T Axes : 038 -16 049 degrees QTc Int : 469 ms Sinus tachycardia Inferior infarct , age undetermined Abnormal ECG Confirmed by TIGRE LEPE, EDUARDO ([id number]), videotape editor JASPAL TRUJILLO ([id number]) on 01/20/2021 9:38:13 AM Referred By: SAVAGE/SUNITA Confirmed By:EDUARDO LANDEROS MD
--- NOTE | 2021-01-17 16:58 | EX.ED.DYSGE1 ---
HPI History of Present Illness Chief Complaint: Chest Pain Detail of Chief Complaint: Chest pain, hypertension, abdominal pain Informant: patient Onset/Context/Timing Current Severity: 0/10 Narrative Narrative: Patient presents to the emergency department with multiple complaints today. Patient states that she has been checking her blood pressure at home and its been elevated as high as 169/129. Patient complains of some mild discomfort in her left jaw and left arm. Has had intermittent chest pain as well as abdominal pain. Patient states that she had a stress test 5 days ago that was normal. She called the nurse line and was told to come to the ER to be evaluated. Patient complains of dysuria and frequency. Patient states that she thinks that she may be anxious. She is been taking her blood pressure medicine regularly. Patient states that for several months her blood pressures been running high. Prior similar symptoms: [facility] Medical History (Updated 01/17/21 @ 19:[address] Mj Turner, DO) Acute pancreatitis Acute respiratory failure EMILIO (acute kidney injury) Angioedema Anxiety Anxiety and depression Bloody diarrhea C. difficile diarrhea Chest pain COPD (chronic obstructive pulmonary disease) COPD exacerbation Depression Difficulty breathing Former tobacco use GERD (gastroesophageal reflux disease) Hiatal hernia Hyperglycemia Hyperlipidemia Hypertension Morbid obesity Morbid obesity Neck pain SHARMIN (obstructive sleep apnea) Tracheostomy dependence Type II diabetes mellitus Upper airway obstruction Home Medications loratadine 10 mg PO DAILY 12/16/16 [History Last Taken 08/27/19] glimepiride 4 mg PO BID 05/25/17 [History Last Taken 08/27/19] lansoprazole 30 mg PO DAILY 07/06/18 [History Last Taken 04/07/20 08:00] buspirone 10 mg PO TID 02/20/19 [History Last Taken 08/27/19] spironolactone 50 mg PO DAILY 02/20/19 [History Last Taken 08/27/19] insulin glargine 20 units SUBCUT QHS 07/10/19 [History Last Taken 08/26/19] escitalopram oxalate 20 mg PO DAILY 11/08/19 [History Last Taken Unknown] zolpidem 10 mg PO QHS 03/15/20 [History Last Taken Unknown] famotidine 20 mg PO QHS 09/21/20 [History Last Taken Unknown] meloxicam 15 mg PO DAILY 09/21/20 [History Last Taken Unknown] promethazine 25 mg PO Q8H PRN 09/21/20 [History Last Taken Unknown] metoprolol succinate 50 mg PO DAILY 01/13/21 [History Last Taken Unknown] atorvastatin 20 mg PO QHS #30 tab 01/14/21 [Rx Last Taken Unknown] Allergy/AdvReac Type Severity Reaction Status Date / Time bupropion [From Wellbutrin] Allergy Angioedema Verified 01/13/21 16:32 lisinopril Allergy Angioedema Verified 01/13/21 16:32 sulfamethoxazole Allergy Rash Verified 01/13/21 16:32 [From Bactrim] trimethoprim [From Bactrim] Allergy Rash Verified 01/13/21 16:32 aspirin AdvReac Nausea/Vom/ Verified 01/13/21 16:32 Diarrhea hydrocodone [From Vicodin] AdvReac Nausea/Vom/ Verified 01/13/21 16:32 Diarrhea rosuvastatin [From Crestor] AdvReac PT UNSURE Verified 01/13/21 21:38 OF REACTION Surgical History s/p bladder sling S/P laparoscopic cholecystectomy s/p novasure S/P tubal ligation Status post tracheostomy Social History Smoking Status: Former smoker substance use type: does not use ROS ROS ED Constitutional Constitutional ED: Reports systems reviewed and no addt'l complaints, except as documented; Denies body ache(s), change in weight or chills Eyes Eyes: Denies acute decrease in peripheral vision, change in vision, double vision or loss of vision ENT ENT ED: Reports none; Denies ear pain, lip swelling, loss taste/smell, neck pain, otalgia or sore throat Cardiovascular Cardiovascular: Reports none and chest pain; Denies abdominal pain, chest pain with activity, leg edema, lightheadedness, palpitations, rapid heart rate or syncope Respiratory/Chest Respiratory/Chest: Reports none; Denies change in mental status, dry cough, dyspnea, hemoptysis, shortness of breath at rest or shortness of breath with exertion Gastrointestinal Gastrointestinal: Reports none and abdominal pain; Denies change in stool character, diarrhea, hematemesis, hematochezia, melena, rectal bleeding or vomiting Genitourinary Genitourinary ED: Reports none and dysuria; Denies abdominal discomfort, anuria, genital pain or polyuria Musculoskeletal Musculoskeletal: Reports none; Denies arthralgias, back pain, difficulty walking, extremity pain, muscle weakness or myalgias Integumentary Reports none; Denies abscess or rash Neurologic Neurologic: Reports none and headache(s); Denies abnormal gait, confusion, focal weakness, frequent falls, loss of vision, numbness, paresthesias, radicular pain, vertigo or weakness Psychiatric Psychiatric: Reports systems reviewed and no addt'l complaints, except as documented and none; Denies behavioral changes, confusion, difficulty concentrating, hallucinations, suicidal ideation, tactile hallucinations or visual hallucinations Endocrine Endocrinology: Denies none, cold intolerance, excessive sweating, fatigue or heat intolerance Hematologic/Lymphatic Hematologic/Lymphatic: Reports none; Denies anemia, easy bleeding or easy bruising Allergic/Immunologic Allergic/Immunologic ED: Denies as per HPI, none, lip swelling, mouth swelling, throat swelling, tongue swelling or hives EXAM Physical Exam Const Vital Signs: 01/17/21 16:47 01/17/21 18:00 Temperature 98.5 F Temperature Source Oral Pulse Rate 115 H 101 H Respiratory Rate 22 H 16 Blood Pressure 151/137 H 157/97 H Blood Pressure Mean 141 117 Pulse Ox 94 97 Oxygen Delivery Method Room Air Room Air Positive well nourished and well developed General Appearance ED: well developed and NAD HEENT Reports TM's clear and moist mucous membranes normocephalic and atraumatic; Negative for trauma or tenderness Tympanic Membrane ED: Yes TM's clear Eyes PERRL and EOMs intact bilaterally General Eye ED: Negative for pale conjunctiva or scleral icterus Neck no lymphadenopathy, supple and no JVD General: Negative for tenderness Chest Wall inspection of chest normal and palpation of chest normal Chest: Negative for tenderness Resp normal respiratory effort and clear to auscultation bilaterally Effort and Inspection: Negative for respiratory distress or pain with movement Auscultation: Negative for rhonchi, wheezes or diminished lung sounds Cardio regular rate, regular rhythm, S1 normal heart sound, S2 normal heart sound and no murmurs Peripheral Pulses: pulses 2+ throughout GI normal to inspection, nondistended, normoactive bowel sounds, soft to palpation, non-tender, non-distended and no masses Back/Spine no CVA tenderness and no thoracic nor lumbar tenderness Extremity normal to inspection General Extremety ED: Negative for edema General Extremity: Negative for edema Neuro oriented x3, CN's II-XII intact bilaterally, no sensory deficits noted and gait normal Sensorium / Orientation: awake, alert, oriented to person, oriented to place and oriented to time Motor Exam: strength 5/5 throughout and strength abnormal Psych mental status grossly normal Skin no rashes or lesions noted and no wounds MDM MDM MDM Narrative Medical decision making narrative: Patient received hydralazine 5 mg IV and had improvement in her diastolic pressure into the 70s and 80s. Her systolic remained in the 170s to 160s. Case was discussed with physician on-call for Dr. Burks who asked that we increase her metoprolol to 100 mg daily. Patient also received a CT scan of her brain without contrast which was unremarkable. Before I could go back to the room and update the patient on her CT results and instructions to increase her metoprolol patient eloped from the department. I do not feel patient is having acute coronary syndrome. She had recent normal stress testing within the last week. Her EKG and troponin were normal. Lab Data Attestation: I reviewed the patient's lab results. Labs: Laboratory Results - last 24 hr 01/17/21 01/17/21 01/17/21 17:00 17:00 17:00 WBC 7.3 RBC 4.97 Hgb 14.9 Hct 42.9 MCV 86.3 MCH 30.0 MCHC 34.7 RDW Std Deviation 39.8 RDW Coeff of [place] 12.6 Plt Count 253 MPV 11.4 Immature Gran % (Auto) 0.800 Neut % (Auto) 62.1 Lymph % (Auto) 25.3 [place] % (Auto) 8.2 Eos % (Auto) 2.5 Baso % (Auto) 1.1 H Absolute Neuts (auto) 4.5 Absolute Lymphs (auto) 1.85 Nucleated RBC % 0 D-Dimer Quant (PE/DVT) Sodium 130 L Potassium 4.2 Chloride 99 Carbon Dioxide 25.0 Anion Gap 6 BUN 14 Creatinine 0.95 Estim Creat Clear Calc 60.21 Est GFR (MDRD) Af Amer 79 Est GFR (MDRD) Non-Af 65 BUN/Creatinine Ratio 14.8 Glucose 171 H Lactic Acid 1.8 Calcium 9.1 Total Bilirubin 0.60 AST 39 H ALT 30 Alkaline Phosphatase 91 Troponin I High Sens 4.4 Total Protein 8.2 Albumin 3.8 Globulin 4.4 H Albumin/Globulin Ratio 0.9 Lipase 100 Urine Color Urine Clarity Urine pH Ur Specific [place] Urine Protein Urine Glucose (UA) Urine Ketones Urine Occult Blood Urine Nitrite Urine Bilirubin Urine Urobilinogen Ur Leukocyte Esterase Urine RBC Urine WBC Ur Squamous Epith Cells Urine Bacteria Urine Mucus 01/17/21 01/17/21 17:04 17:50 WBC RBC Hgb Hct MCV MCH MCHC RDW Std Deviation RDW Coeff of [place] Plt Count MPV Immature Gran % (Auto) Neut % (Auto) Lymph % (Auto) [place] % (Auto) Eos % (Auto) Baso % (Auto) Absolute Neuts (auto) Absolute Lymphs (auto) Nucleated RBC % D-Dimer Quant (PE/DVT) 0.33 Sodium Potassium Chloride Carbon Dioxide Anion Gap BUN Creatinine Estim Creat Clear Calc Est GFR (MDRD) Af Amer Est GFR (MDRD) Non-Af BUN/Creatinine Ratio Glucose Lactic Acid Calcium Total Bilirubin AST ALT Alkaline Phosphatase Troponin I High Sens Total Protein Albumin Globulin Albumin/Globulin Ratio Lipase Urine Color Yellow Urine Clarity Clear Urine pH 6.0 Ur Specific [place] 1.005 Urine Protein Negative Urine Glucose (UA) Normal Urine Ketones Negative Urine Occult Blood Negative Urine Nitrite Negative Urine Bilirubin Negative Urine Urobilinogen Normal Ur Leukocyte Esterase Negative Urine RBC 0 SEEN Urine WBC 0 SEEN Ur Squamous Epith Cells 0-5 SEEN Urine Bacteria RARE Urine Mucus 0 SEEN Radiography Chest X-Ray - ED: 1 View Diagnostic Testing: Radiology Impression Chest X-Ray 01/17/21 17:05 IMPRESSION: Nonacute portable x-ray examination of the chest. Electronically Signed: Tomasz Johnson MD ([place]) at 17:39 EDT , Service support , Brain CT 01/17/21 18:37 IMPRESSION: No acute intracranial hemorrhage or mass effect. Electronically Signed: Tomasz Johnson MD ([place]oks) at 19:01 EDT , Service support , 1 view chest x-ray obtained interpreted by myself as no acute disease process. Radiology was in agreement. EKG Initial EKG: Comments: Sinus rhythm with a ventricular rate of 107 bpm with old inferior infarct noted. Discharge Plan Triage Chief Complaint: Chest Pain ED Provider: Mj Turner Dx/Rx/DC Orders Clinical Impression: Hypertension, Chest pain, Headache Prescriptions: No Action loratadine 10 MG tablet 10 mg PO DAILY RF: 0 glimepiride 4 MG tablet 4 mg PO BID RF: 0 lansoprazole 30 MG capsule,delayed release(DR/EC) 30 mg PO DAILY RF: 0 buspirone 7.5 MG tablet 10 mg PO TID RF: 0 spironolactone 50 MG tablet 50 mg PO DAILY RF: 0 insulin glargine 100 UNITS/ML insulin pen 20 units subcut QHS RF: 0 escitalopram oxalate 10 MG tablet 20 mg PO DAILY RF: 0 zolpidem 5 MG tablet 10 mg PO QHS RF: 0 meloxicam 15 MG tablet 15 mg PO DAILY RF: 0 famotidine 20 MG tablet 20 mg PO QHS RF: 0 promethazine 25 MG tablet 25 mg PO Q8H PRN (Reason: Nausea) RF: 0 metoprolol succinate 50 mg Tablet Extended Release 24 Hr 50 mg PO DAILY RF: 0 atorvastatin 20 mg tablet 20 mg PO QHS Qty: 30 RF: 0 Primary Care Provider: Joaquim Burks Referrals: Joaquim Burks DO [Primary Care Provider] - Disposition Disposition: Elopement Discharge Date/Time: 01/17/21 19:08
--- NOTE | 2021-01-17 17:05 | RAD_ITS ---
STUDY: X-RAY CHEST REASON FOR EXAM: Female, 55 years old. chest pain TECHNIQUE: AP COMPARISON: None. FINDINGS: The lungs are clear and expanded. There is no demonstrated pleural abnormality. Normal size heart. Normal mediastinum and christy. Normal visualized pulmonary arteries. Normal visualized aortic arch and descending thoracic aorta. Normal visualized thoracic spine. Normal visualized ribs, clavicles, and shoulders. There is no demonstrated abnormality of the visualized soft tissue structures of the upper abdomen. RAD/Chest 1 View (Portable) IMPRESSION: Nonacute portable x-ray examination of the chest. Electronically Signed: Tomasz Johnson MD (Brooks) at 17:39 EDT , Service support ,
[2021-01-17 17:10] LABS: Absolute Lymphocyte Count 1.85 X10^3/uL (0.83-4.51); Absolute Neutrophil Count 4.5 X10^3/uL (2.0-7.7); Basophil# 0.08 X10^3/uL; Basophil% 1.1 % (0-1); Eosinophil# 0.18 X10^3/uL; Eosinophils% 2.5 % (0-5); Hematocrit 42.9 % (37-47); Hemoglobin 14.9 g/dL (12.0-15.0); Lymphocyte # 1.85 X10^3/ul (0.83-4.51); Lymphocyte % 25.3 % (19-41); Mean Corp Hgb Conc 34.7 g/dL (32-36); Mean Corpuscular Volume 86.3 fL (81-99); Mean Platelet Vol. 11.4 fl (6.2-12.0); Monocyte% 8.2 % (0-10); NRBC Flagged by Analyzer 0 % (0-5); Neutrophil # 4.53 X10^3/uL (2.7-7.7); Neutrophil % 62.1 % (47-70); Platelet Count 253 K/mm3 (150-450); RBC Distribution Width CV 12.6 % (11.6-14.6); RBC Distribution Width SD 39.8 fl (35.1-43.9); Red Blood Count 4.97 M/mm3 (4.2-5.4); White Blood Count 7.3 K/mm3 (4.4-11.0)
[2021-01-17] MEDS: hydrALAZINE 20 MG/ML Vial 5 MG IV (17:13)
[2021-01-17] MEDS: 0.9% Normal Saline 1,000 ML 1000 ML IV (17:13)
[2021-01-17] MEDS: Clopidogrel Bisulfate 75 MG Tablet PO (17:13)
[2021-01-17 17:19] LABS: D-Dimer Quantitative (DVT/PE) 0.33 FEU/ug/m (0.27-0.49)
[2021-01-17 17:35] LABS: ALB/GLOB Ratio 0.9 RATIO (0.9-2.4); AST(SGOT) 39 U/L (15-37); Alanine Aminotransfer ALT/SGPT 30 U/L (13-56); Albumin, Serum 3.8 g/dL (3.2-5.0); Alkaline Phosphatase 91 U/L (45-117); Anion Gap 6 (5-15); BUN 14 mg/dL (7-18); BUN/Creat Ratio 14.8 RATIO (10-20); Calcium,Total 9.1 mg/dL (8.5-10.1); Chloride 99 mmol/L (98-107); Creatinine, Serum 0.95 mg/dL (0.55-1.02); EST Glomerular Filtration Rate 65 mL/min (>60); Est Glom Filt Rate - Afr Amer 79 mL/min (>60); Estimated Creatinine Clearance 60.21 ml/min; Globulin 4.4 g/dL (2.2-4.2); Glucose 171 mg/dL (74-106); Lipase 100 U/L (73-393); Potassium 4.2 mmol/L (3.5-5.1); Protein, Total 8.2 g/dL (6.4-8.2); Sodium Level 130 mmol/L (136-145); Troponin-I HS 4.4 pg/mL (3.0-53.7)
[2021-01-17 17:36] LABS: Lactic Acid 1.8 mmol/L (0.4-1.9)
[2021-01-17 17:58] LABS: Mucous, Urine 0 SEEN /hpf (<or=2+); Red Blood Cells-Urine 0 SEEN /hpf (0-5); White Blood Cells 0 SEEN /hpf (0-5)
[2021-01-17 18:00] VITALS: BP 157/97; PULSE 101; RESP 16; O2SAT 97
[2021-01-17 18:01] LABS: Color, Urine Yellow (Yellow); Glucose, Dipstick Normal (Normal); Ketone-Dipstick Negative (Negative); Leukocyte Esterase-Dipstick Negative /ul (Negative); Nitrite-Dipstick Negative (Negative); Occult Blood-Urine Negative /ul (Negative); Protein-Dipstick Negative (Negative); Specific Gravity, Urine 1.005 (1.002-1.030); Urine Bilirubin Dipstick Negative (Negative); Urine Clarity Clear (Clear); Urine Urobilinogen Normal (Normal)
[2021-01-17 18:06] LABS: Bacteria RARE /hpf (None Seen); Squamous Epithelial Cells - UA 0-5 SEEN /hpf (5-10)
[2021-01-17] MEDS: Ondansetron 4 MG/2 ML Vial IV (18:08)
[2021-01-17] MEDS: Ketorolac 15 MG/ML Vial IV (18:08)
--- NOTE | 2021-01-17 18:37 | CT_ITS ---
STUDY: CT BRAIN WITHOUT CONTRAST REASON FOR EXAM: Female, 55 years old. headache RADIATION DOSAGE (If Supplied By Facility): CTDIvol = ( 44.99 ) mGy, DLP = ( 779.24 ) mGycm TECHNIQUE: Transaxial CT imaging of the brain was performed without administration of intravenous contrast material. Individualized dose optimization techniques were used for this CT. COMPARISON: No relevant priors. FINDINGS: Normal soft tissue structures. Normal calvarium. There is mild cerebral atrophy with widening of the extra-axial spaces and ventricular dilatation. Normal white matter tracts of the cerebral hemispheres. Normal basal ganglia and thalami. Normal brainstem. Normal cerebellum. There is no intracranial hemorrhage. There are no findings of an acute ischemic infarction. Normal visualized paranasal sinuses. CT/Brain/Head without Contrast IMPRESSION: No acute intracranial hemorrhage or mass effect. Electronically Signed: Tomasz Johnson MD (Brooks) at 19:01 EDT , Service support ,
--- NOTE | 2021-01-17 19:06 | ED.RN ---
pt was taking iv out and stated I'm leaving pt upset that she doesn't feel better, this nurse explained that pt needs to follow up with pcp for hypertension I'm not going anywhere near any doctors pt then left. Dr. Turner informed of same.
== END 2021-01-17 19:08 | disposition left against medical advice (07) ==
LOC: ED 17:30
PROVIDERS: Emergency Provider Emergency Medicine; PCP Student in an Organized Health Care Education/Training Program
DX: R07.9 Chest pain, unspecified (principal); I10 Essential (primary) hypertension; R51.9 Headache, unspecified; F41.9 Anxiety disorder, unspecified; F32.9 Major depressive disorder, single episode, unspecified; J44.9 Chronic obstructive pulmonary disease, unspecified; K21.9 Gastro-esophageal reflux disease without esophagitis; E78.5 Hyperlipidemia, unspecified; E66.01 Morbid (severe) obesity due to excess calories; Z68.41 Body mass index [BMI] 40.0-44.9, adult; E11.9 Type 2 diabetes mellitus without complications; G47.33 Obstructive sleep apnea (adult) (pediatric); Z87.19 Personal history of other diseases of the digestive system; Z86.19 Personal history of other infectious and parasitic diseases; Z79.4 Long term (current) use of insulin; Z79.899 Other long term (current) drug therapy; Z87.891 Personal history of nicotine dependence
CPT/HCPCS: 70450; 71045; 80053; 81001; 83605; 83690; 84484; 85025; 85379; 93005; 96361; 96374; 96375; 99285; J7030; A4216; J2405

== ENCOUNTER 2021-04-12 21:19 | Emergency (ER) | payer MEDICARE, MEDICAID, SELFPAY ==
[2021-04-12 21:20] VITALS: BP 181/106; PULSE 101; RESP 18; TEMP 35.9; O2SAT 99; BMI 42.7
--- NOTE | 2021-04-12 22:37 | CT_ITS ---
INDICATION: abdominal pain EXAMINATION: CT Abdomen And Pelvis W/ Contrast Injection TECHNIQUE: Helically acquired images were obtained of the abdomen and pelvis after IV contrast. A radiation dose optimization technique was used for this scan. IV Contrast dosage and agent: IV 100mL Isovue-370 Oral contrast: None. COMPARISON: 11/21/2020. FINDINGS: Visualized lung bases: Unremarkable Liver: Unremarkable Gallbladder: Gallbladder is nonvisualized, likely surgically absent. Spleen: Unremarkable Pancreas: Unremarkable Adrenal Glands: Unremarkable Kidneys: Obstructing 3 mm stone in the proximal left ureter with no associated hydronephrosis. Additional 3 mm nonobstructing stone in the left upper renal pole. Vasculature: Unremarkable GI Tract: Scattered diverticula throughout the colon without evidence of inflammation. Lymphadenopathy: None Peritoneum: No ascites. Bladder: Unremarkable Reproductive organs: Bilateral tubal ligations. Bones/Soft tissues: No suspicious osseous or soft tissue lesions CT/Abdomen/Pelvis W IV Cont ONLY IMPRESSION: Obstructing 3 mm stone in the proximal left ureter with no associated hydronephrosis. Additional 3 mm nonobstructing stone in the left upper renal pole. Diverticulosis. Electronically Signed: Steven Adam MD at 23:53 EDT Tel , Service support ,
--- NOTE | 2021-04-12 22:38 | ED.VIS.GI ---
HPI HPI - GI History of Present Illness Chief Complaint: Abd Pain Narrative Narrative: 56-year-old female presenting with abdominal pain. She states has had this for 2 days. It is on the right side of her mid abdomen. She states he does not have a gallbladder. Patient reports nausea without vomiting. She states she also has chronic diarrhea. She denies a fever. She does report some dysuria for the past couple of days. Patient also has a history of kidney stones but she does not have flank pain. PFSH PFS Medical History Acute pancreatitis Acute respiratory failure EMILIO (acute kidney injury) Angioedema Anxiety Anxiety and depression Bloody diarrhea C. difficile diarrhea COPD (chronic obstructive pulmonary disease) COPD exacerbation Depression Difficulty breathing Former tobacco use GERD (gastroesophageal reflux disease) Hiatal hernia Hyperglycemia Hyperlipidemia Hypertension Morbid obesity Morbid obesity Neck pain SHARMIN (obstructive sleep apnea) Tracheostomy dependence Type II diabetes mellitus Upper airway obstruction Home Medications loratadine 10 mg PO DAILY 12/16/16 [History Last Taken 08/27/19] glimepiride 4 mg PO BID 05/25/17 [History Last Taken 08/27/19] lansoprazole 30 mg PO DAILY 07/06/18 [History Last Taken 04/07/20 08:00] buspirone 10 mg PO TID 02/20/19 [History Last Taken 08/27/19] spironolactone 50 mg PO DAILY 02/20/19 [History Last Taken 08/27/19] insulin glargine 20 units SUBCUT QHS 07/10/19 [History Last Taken 08/26/19] escitalopram oxalate 20 mg PO DAILY 11/08/19 [History Last Taken Unknown] zolpidem 10 mg PO QHS 03/15/20 [History Last Taken Unknown] famotidine 20 mg PO QHS 09/21/20 [History Last Taken Unknown] meloxicam 15 mg PO DAILY 09/21/20 [History Last Taken Unknown] promethazine 25 mg PO Q8H PRN 09/21/20 [History Last Taken Unknown] metoprolol succinate 100 mg PO DAILY 01/13/21 [History Last Taken Unknown] ondansetron 4 mg PO Q8H PRN PRN #10 tab 04/13/21 [Rx Last Taken Unknown] Allergy/AdvReac Type Severity Reaction Status Date / Time bupropion [From Wellbutrin] Allergy Angioedema Verified 04/12/21 21:21 lisinopril Allergy Angioedema Verified 04/12/21 21:21 sulfamethoxazole Allergy Rash Verified 04/12/21 21:21 [From Bactrim] trimethoprim [From Bactrim] Allergy Rash Verified 04/12/21 21:21 aspirin AdvReac Nausea/Vom/ Verified 04/12/21 21:21 Diarrhea hydrocodone [From Vicodin] AdvReac Nausea/Vom/ Verified 04/12/21 21:21 Diarrhea rosuvastatin [From Crestor] AdvReac PT UNSURE Verified 04/12/21 21:21 OF REACTION Surgical History s/p bladder sling S/P laparoscopic cholecystectomy s/p novasure S/P tubal ligation Status post tracheostomy Social History Smoking Status: Former smoker substance use type: does not use ROS ROS ED Constitutional Constitutional ED: Denies chills or fever(s) ENT ENT ED: Denies rhinorrhea or sore throat Cardiovascular Cardiovascular: Denies chest pain or palpitations Respiratory/Chest Respiratory/Chest: Denies cough or dyspnea Gastrointestinal Gastrointestinal: Reports abdominal pain, diarrhea and nausea; Denies constipation or vomiting Genitourinary Genitourinary ED: Reports dysuria; Denies hematuria or urinary frequency Musculoskeletal Musculoskeletal: Denies arthralgias, back pain, myalgias or neck pain Integumentary Denies rash Neurologic Neurologic: Denies headache(s) or paresthesias EXAM Physical Exam Const Vital Signs: 04/12/21 21:20 04/13/21 00:06 04/13/21 00:42 Temperature 96.7 F L Temperature Source Temporal Pulse Rate 101 H 87 Respiratory Rate 18 18 16 Blood Pressure 181/106 H 166/78 H Blood Pressure Mean 131 Pulse Ox 99 97 Positive well nourished General Appearance ED: NAD; Negative for pallor HEENT Reports moist mucous membranes normocephalic and atraumatic Eyes PERRL and EOMs intact bilaterally General Eye ED: Negative for pale conjunctiva or scleral icterus Resp normal respiratory effort and clear to auscultation bilaterally Cardio regular rate and regular rhythm GI non-distended GI Narrative: Tenderness in the right side of the mid abdomen. Abdomen nonperitoneal. Palpation: soft and tender Back/Spine no CVA tenderness Neuro Sensorium / Orientation: alert, oriented to person, oriented to place, oriented to time and orientation impaired Psych mental status grossly normal and thought process normal Skin General Skin Exam: Negative for jaundice or pallor MDM MDM MDM Narrative Medical decision making narrative: Patient presented with right-sided abdominal pain which is neither in the right upper quadrant nor the right lower quadrant. There is minimal tenderness to palpation. There is no left-sided tenderness to palpation nor does she have CVA tenderness on either side. I did obtain blood work and her CBC and CMP are normal with exception of a mildly elevated AST at 44. Lipase is normal. Urinalysis is negative for infection. CT of the abdomen pelvis with IV contrast shows no acute pathology in the right side of the abdomen. She does have a left-sided obstructing stone in the proximal left ureter however she has no pain here. Given this I feel the patient is stable to be discharged home. I do not believe she needs narcotic medication at this time. I did write her prescription for Zofran if needed. She is given return precautions. Impression: 1. Right-sided abdominal pain 2. 3 mm proximal ureteral stone on the left Lab Data Labs: Laboratory Results - last 24 hr 04/12/21 04/12/21 04/12/21 21:50 22:05 22:05 WBC 6.8 RBC 4.76 Hgb 14.3 Hct 42.1 MCV 88.4 MCH 30.0 MCHC 34.0 RDW Std Deviation 42.0 RDW Coeff of Cecil 13.0 Plt Count 212 MPV 11.6 Immature Gran % (Auto) 0.900 Neut % (Auto) 53.5 Lymph % (Auto) 32.3 [place] % (Auto) 9.3 Eos % (Auto) 3.1 Baso % (Auto) 0.9 Absolute Neuts (auto) 3.6 Absolute Lymphs (auto) 2.19 Nucleated RBC % 0 Sodium 134 L Potassium 4.8 Chloride 101 Carbon Dioxide 25.0 Anion Gap 8 BUN 18 Creatinine 0.96 Estim Creat Clear Calc 58.88 Est GFR (MDRD) Af Amer 77 Est GFR (MDRD) Non-Af 64 BUN/Creatinine Ratio 18.7 Glucose 205 H Calcium 9.1 Total Bilirubin 0.40 AST 44 H ALT 31 Alkaline Phosphatase 101 Total Protein 7.7 Albumin 3.3 Globulin 4.4 H Albumin/Globulin Ratio 0.8 L Lipase 142 Urine Color Yellow Urine Clarity Clear Urine pH 5.0 Ur Specific [employer] 1.025 Urine Protein 30 H Urine Glucose (UA) Normal Urine Ketones 5 H Urine Occult Blood 25 H Urine Nitrite Negative Urine Bilirubin Negative Urine Urobilinogen Normal Ur Leukocyte Esterase 25 H Urine RBC 0-5 SEEN Urine WBC 0-5 SEEN Ur Squamous Epith Cells 5-10 SEEN Urine Bacteria 1+ Urine Mucus 0 SEEN Radiography Diagnostic Testing: Clinical Impression(s) from Imaging Studies Abdomen/Pelvis CT 04/12/21 22:37 IMPRESSION: Obstructing 3 mm stone in the proximal left ureter with no associated hydronephrosis. Additional 3 mm nonobstructing stone in the left upper renal pole. Diverticulosis. Electronically Signed: Steven Adam MD at 23:53 EDT Tel , Service support , Discharge Plan Triage Chief Complaint: Abd Pain ED Provider: Michael Lopez Dx/Rx/DC Orders Instructions: ED Abdominal Pain Unkn Cause Fem, ED Kidney Stone Undescended No ... Prescriptions: New ondansetron 4 mg tablet,disintegrating 4 mg PO Q8H PRN PRN (Reason: Nausea) Qty: 10 RF: 0 No Action loratadine 10 MG tablet 10 mg PO DAILY RF: 0 glimepiride 4 MG tablet 4 mg PO BID RF: 0 lansoprazole 30 MG capsule,delayed release(DR/EC) 30 mg PO DAILY RF: 0 buspirone 7.5 MG tablet 10 mg PO TID RF: 0 spironolactone 50 MG tablet 50 mg PO DAILY RF: 0 insulin glargine 100 UNITS/ML insulin pen 20 units subcut QHS RF: 0 escitalopram oxalate 10 MG tablet 20 mg PO DAILY RF: 0 zolpidem 5 MG tablet 10 mg PO QHS RF: 0 meloxicam 15 MG tablet 15 mg PO DAILY RF: 0 famotidine 20 MG tablet 20 mg PO QHS RF: 0 promethazine 25 MG tablet 25 mg PO Q8H PRN (Reason: Nausea) RF: 0 metoprolol succinate 50 mg Tablet Extended Release 24 Hr 100 mg PO DAILY RF: 0 Primary Care Provider: Joaquim Burks Referrals: Joqauim Burks DO [Primary Care Provider] - Disposition Disposition: Home, Self Care Discharge Date/Time: 04/13/21 00:43
[2021-04-12 22:46] LABS: Mucous, Urine 0 SEEN /hpf (<or=2+)
[2021-04-12] MEDS: Ondansetron 4 MG/2 ML Vial IV (22:47)
[2021-04-12] MEDS: Morphine 4 MG/ML Syringe IV (22:47)
[2021-04-12 22:50] LABS: Absolute Lymphocyte Count 2.19 X10^3/uL (0.83-4.51); Absolute Neutrophil Count 3.6 X10^3/uL (2.0-7.7); Basophil# 0.06 X10^3/uL; Basophil% 0.9 % (0-1); Eosinophil# 0.21 X10^3/uL; Eosinophils% 3.1 % (0-5); Hematocrit 42.1 % (37-47); Hemoglobin 14.3 g/dL (12.0-15.0); Lymphocyte # 2.19 X10^3/ul (0.83-4.51); Lymphocyte % 32.3 % (19-41); Mean Corpuscular Volume 88.4 fL (81-99); Mean Platelet Vol. 11.6 fl (6.2-12.0); Monocyte# 0.63 X10^3/uL; Monocyte% 9.3 % (0-10); NRBC Flagged by Analyzer 0 % (0-5); Neutrophil # 3.63 X10^3/uL (2.7-7.7); Neutrophil % 53.5 % (47-70); Platelet Count 212 K/mm3 (150-450); Red Blood Count 4.76 M/mm3 (4.2-5.4); White Blood Count 6.8 K/mm3 (4.4-11.0)
[2021-04-12] MEDS: 0.9% Normal Saline 1,000 ML 1000 ML IV (22:50)
[2021-04-12 22:51] LABS: Color, Urine Yellow (Yellow); Glucose, Dipstick Normal (Normal); Ketone-Dipstick 5 mg/dl (Negative); Leukocyte Esterase-Dipstick 25 /ul (Negative); Nitrite-Dipstick Negative (Negative); Occult Blood-Urine 25 /ul (Negative); Protein-Dipstick 30 mg/dl (Negative); Specific Gravity, Urine 1.025 (1.002-1.030); Urine Bilirubin Dipstick Negative (Negative); Urine Clarity Clear (Clear); Urine Urobilinogen Normal (Normal)
[2021-04-12 23:01] LABS: Bacteria 1+ /hpf (None Seen); Squamous Epithelial Cells - UA 5-10 SEEN /hpf (5-10)
[2021-04-12 23:02] LABS: Red Blood Cells-Urine 0-5 SEEN /hpf (0-5); White Blood Cells 0-5 SEEN /hpf (0-5)
[2021-04-12 23:08] LABS: ALB/GLOB Ratio 0.8 RATIO (0.9-2.4); AST(SGOT) 44 U/L (15-37); Alanine Aminotransfer ALT/SGPT 31 U/L (13-56); Albumin, Serum 3.3 g/dL (3.2-5.0); Alkaline Phosphatase 101 U/L (45-117); Anion Gap 8 (5-15); BUN 18 mg/dL (7-18); BUN/Creat Ratio 18.7 RATIO (10-20); Calcium,Total 9.1 mg/dL (8.5-10.1); Chloride 101 mmol/L (98-107); Creatinine, Serum 0.96 mg/dL (0.55-1.02); EST Glomerular Filtration Rate 64 mL/min (>60); Est Glom Filt Rate - Afr Amer 77 mL/min (>60); Estimated Creatinine Clearance 58.88 ml/min; Globulin 4.4 g/dL (2.2-4.2); Glucose 205 mg/dL (74-106); Lipase 142 U/L (73-393); Potassium 4.8 mmol/L (3.5-5.1); Protein, Total 7.7 g/dL (6.4-8.2); Sodium Level 134 mmol/L (136-145)
[2021-04-13 00:06] VITALS: RESP 18
[2021-04-13 00:42] VITALS: BP 166/78; PULSE 87; RESP 16; O2SAT 97
== END 2021-04-13 00:43 | disposition home or self-care (01) ==
PROVIDERS: Emergency Provider Student in an Organized Health Care Education/Training Program; PCP Student in an Organized Health Care Education/Training Program
DX: N13.2 Hydronephrosis with renal and ureteral calculous obstruction (principal); K52.9 Noninfective gastroenteritis and colitis, unspecified; I10 Essential (primary) hypertension; E66.01 Morbid (severe) obesity due to excess calories; Z68.41 Body mass index [BMI] 40.0-44.9, adult; E78.5 Hyperlipidemia, unspecified; F32.A Depression, unspecified; F41.9 Anxiety disorder, unspecified; J44.9 Chronic obstructive pulmonary disease, unspecified; G47.33 Obstructive sleep apnea (adult) (pediatric); K21.9 Gastro-esophageal reflux disease without esophagitis; Z87.19 Personal history of other diseases of the digestive system; Z87.442 Personal history of urinary calculi; Z79.4 Long term (current) use of insulin; Z79.82 Long term (current) use of aspirin; Z79.899 Other long term (current) drug therapy; Z87.891 Personal history of nicotine dependence
CPT/HCPCS: 74177; 80053; 81001; 83690; 85025; 96361; 96374; 96375; 99282; J7030; Q9967; A4216; J2405

== ENCOUNTER 2021-04-14 03:54 | Emergency (ER) | payer MEDICARE, MEDICAID, SELFPAY ==
[2021-04-14 03:55] VITALS: BP 173/99; PULSE 92; TEMP 36.6; O2SAT 95; BMI 43.7
--- NOTE | 2021-04-14 04:21 | CT_ITS ---
STUDY: CT ABDOMEN AND PELVIS WITH CONTRAST REASON FOR EXAM: Female, 56 years old. Abdominal pain RADIATION DOSAGE (If Supplied By Facility): CTDIvol = ( 22.00 ) mGy, DLP = ( 1241.87 ) mGycm TECHNIQUE: Transaxial images were obtained from the dome of the diaphragm to the symphysis pubis without oral contrast. IV 100mL Isovue-370 was administered. Sagittal and coronal images were reconstructed. Individualized dose optimization techniques were used for this CT. COMPARISON: 04/12/2021 FINDINGS: The visualized lung bases are unremarkable. The visualized portions of the heart are within normal limits. Normal liver. There is non-visualization of the gallbladder, which may be secondary to either contraction or a prior cholecystectomy. Normal spleen. Normal pancreas. Normal bilateral adrenal glands. Normal right kidney. Normal left kidney. Small proximal left ureter calculus and small left renal collecting system calculus remain. No hydronephrosis. Normal visualized stomach. Normal small intestine. Normal colon. The appendix is visualized and appears normal. Normal abdominal aorta. Normal inferior vena cava. Normal retroperitoneum. Normal urinary bladder. Fallopian tube occlusion devices noted. Normal abdominal wall. There are diffuse degenerative changes of the visualized lumbar spine. CT/Abdomen/Pelvis W IV Cont ONLY IMPRESSION: Unchanged renal calculi without hydronephrosis. No new abnormal finding. Electronically Signed: Hu Sierra MD at 5:56 EDT Tel , Service support ,
[2021-04-14 04:44] LABS: Absolute Lymphocyte Count 1.72 X10^3/uL (0.83-4.51); Absolute Neutrophil Count 3.8 X10^3/uL (2.0-7.7); Basophil# 0.06 X10^3/uL; Basophil% 0.9 % (0-1); Eosinophil# 0.17 X10^3/uL; Eosinophils% 2.7 % (0-5); Hematocrit 43.8 % (37-47); Hemoglobin 14.7 g/dL (12.0-15.0); Lymphocyte # 1.72 X10^3/ul (0.83-4.51); Mean Corp Hgb Conc 33.6 g/dL (32-36); Mean Corpuscular Hgb 29.9 pg (27.0-32.0); Mean Corpuscular Volume 89.2 fL (81-99); Monocyte% 9.4 % (0-10); NRBC Flagged by Analyzer 0 % (0-5); Neutrophil # 3.76 X10^3/uL (2.7-7.7); Neutrophil % 59.1 % (47-70); Platelet Count 211 K/mm3 (150-450); RBC Distribution Width CV 12.9 % (11.6-14.6); RBC Distribution Width SD 42.4 fl (35.1-43.9); Red Blood Count 4.91 M/mm3 (4.2-5.4); White Blood Count 6.4 K/mm3 (4.4-11.0)
--- NOTE | 2021-04-14 04:47 | ED.VIS.GI ---
HPI HPI - GI History of Present Illness Chief Complaint: Flank Pain Narrative Narrative: 56-year-old female presenting with abdominal pain. It is in the right lower quadrant. She was seen a couple of days ago for similar pain. She states that yesterday she slept all day. She has not had a fever. She denies constipation, vomiting but is nauseous. She states she might have some mild dysuria. Denies vaginal complaints. [facility] Medical History (Updated 04/14/21 @ 06:[address] Michael Lopez, DO) Acute pancreatitis Acute respiratory failure EMILIO (acute kidney injury) Angioedema Anxiety Anxiety and depression Bloody diarrhea C. difficile diarrhea COPD (chronic obstructive pulmonary disease) COPD exacerbation Depression Difficulty breathing Former tobacco use GERD (gastroesophageal reflux disease) Hiatal hernia Hyperglycemia Hyperlipidemia Hypertension Morbid obesity Morbid obesity Neck pain SHARMIN (obstructive sleep apnea) Tracheostomy dependence Type II diabetes mellitus Upper airway obstruction Home Medications loratadine 10 mg PO DAILY 12/16/16 [History Last Taken 08/27/19] glimepiride 4 mg PO BID 05/25/17 [History Last Taken 08/27/19] lansoprazole 30 mg PO DAILY 07/06/18 [History Last Taken 04/07/20 08:00] buspirone 10 mg PO TID 02/20/19 [History Last Taken 08/27/19] spironolactone 50 mg PO DAILY 02/20/19 [History Last Taken 08/27/19] insulin glargine 20 units SUBCUT QHS 07/10/19 [History Last Taken 08/26/19] escitalopram oxalate 20 mg PO DAILY 11/08/19 [History Last Taken Unknown] zolpidem 10 mg PO QHS 03/15/20 [History Last Taken Unknown] famotidine 20 mg PO QHS 09/21/20 [History Last Taken Unknown] meloxicam 15 mg PO DAILY 09/21/20 [History Last Taken Unknown] promethazine 25 mg PO Q8H PRN 09/21/20 [History Last Taken Unknown] metoprolol succinate 100 mg PO DAILY 01/13/21 [History Last Taken Unknown] ondansetron 4 mg PO Q8H PRN PRN #10 tab 04/13/21 [Rx Last Taken Unknown] ondansetron 4 mg PO Q8H PRN PRN #10 tab 04/14/21 [Rx Last Taken Unknown] oxycodone-acetaminophen [Percocet] 1 tab PO Q6H PRN 3 Days #10 tab 04/14/21 [Rx Last Taken Unknown] Allergy/AdvReac Type Severity Reaction Status Date / Time bupropion [From Wellbutrin] Allergy Angioedema Verified 04/14/21 04:06 lisinopril Allergy Angioedema Verified 04/14/21 04:06 sulfamethoxazole Allergy Rash Verified 04/14/21 04:06 [From Bactrim] trimethoprim [From Bactrim] Allergy Rash Verified 04/14/21 04:06 aspirin AdvReac Nausea/Vom/ Verified 04/14/21 04:06 Diarrhea hydrocodone [From Vicodin] AdvReac Nausea/Vom/ Verified 04/14/21 04:06 Diarrhea rosuvastatin [From Crestor] AdvReac PT UNSURE Verified 04/14/21 04:06 OF REACTION Surgical History s/p bladder sling S/P laparoscopic cholecystectomy s/p novasure S/P tubal ligation Status post tracheostomy Social History Smoking Status: Former smoker substance use type: does not use ROS ROS ED Constitutional Constitutional ED: Denies chills or fever(s) ENT ENT ED: Denies rhinorrhea or sore throat Cardiovascular Cardiovascular: Denies palpitations or racing heartbeat Respiratory/Chest Respiratory/Chest: Denies cough, dyspnea or sputum Gastrointestinal Gastrointestinal: Reports abdominal pain and nausea; Denies constipation, diarrhea or vomiting Genitourinary Genitourinary ED: Reports dysuria; Denies hematuria or urinary frequency Musculoskeletal Musculoskeletal: Denies arthralgias or myalgias Integumentary Denies rash Neurologic Neurologic: Denies headache(s) or paresthesias EXAM Physical Exam Const Vital Signs: 04/14/21 03:55 04/14/21 06:14 Temperature 97.9 F Temperature Source Oral Pulse Rate 92 79 Respiratory Rate 18 Blood Pressure 173/99 H 137/79 H Blood Pressure Mean 123 98 Pulse Ox 95 96 Oxygen Delivery Method Room Air Room Air Positive well nourished General Appearance ED: NAD HEENT Reports moist mucous membranes normocephalic and atraumatic Eyes PERRL and EOMs intact bilaterally General Eye ED: Negative for pale conjunctiva or scleral icterus Resp normal respiratory effort and clear to auscultation bilaterally Cardio regular rate and regular rhythm GI Palpation: soft and tender RLQ Back/Spine no CVA tenderness Neuro Sensorium / Orientation: alert, oriented to person, oriented to place and oriented to time MDM MDM MDM Narrative Medical decision making narrative: Patient presenting for the second time in the last few days for right-sided abdominal pain. She does seem to be tender in this area but is not peritoneal. I did obtain blood work and her CBC and CMP are normal with exception of a glucose of 223 without anion gap. Lipase is also negative. I did not recheck her urine because it was negative the other day. Patient did have a kidney stone that was present the other day and it is still present and there is no hydronephrosis. I will give the patient some Percocet due to pain and Zofran for short-term. I recommended that she follow-up with her PCP to ensure resolution. She is amenable to this. Patient stable for discharge. Impression: 1. Right lower quadrant pain 2. Left ureteral calculi 3. Nausea Lab Data Attestation: I reviewed the patient's lab results. Labs: Laboratory Results - last 24 hr 04/14/21 04/14/21 04/14/21 04:38 04:38 04:38 WBC 6.4 RBC 4.91 Hgb 14.7 Hct 43.8 MCV 89.2 MCH 29.9 MCHC 33.6 RDW Std Deviation 42.4 RDW Coeff of [place] 12.9 Plt Count 211 MPV 11.0 Immature Gran % (Auto) 0.900 Neut % (Auto) 59.1 Lymph % (Auto) 27.0 [place] % (Auto) 9.4 Eos % (Auto) 2.7 Baso % (Auto) 0.9 Absolute Neuts (auto) 3.8 Absolute Lymphs (auto) 1.72 Nucleated RBC % 0 Sodium 133 L Potassium 4.1 Chloride 97 L Carbon Dioxide 27.0 Anion Gap 9 BUN 13 Creatinine 1.05 H Estim Creat Clear Calc 53.83 Est GFR (MDRD) Af Amer 70 Est GFR (MDRD) Non-Af 58 L BUN/Creatinine Ratio 12.4 Glucose 223 H Calcium 9.0 Total Bilirubin 0.60 AST 36 ALT 31 Alkaline Phosphatase 90 Total Protein 7.9 Albumin 3.6 Globulin 4.3 H Albumin/Globulin Ratio 0.8 L Lipase 105 Cancelled Radiography Diagnostic Testing: Clinical Impression(s) from Imaging Studies Abdomen/Pelvis CT 04/14/21 04:21 IMPRESSION: Unchanged renal calculi without hydronephrosis. No new abnormal finding. Electronically Signed: Hu Sierra MD at 5:56 EDT Tel , Service support , Discharge Plan Triage Chief Complaint: Flank Pain ED Provider: Michael Lopez Dx/Rx/DC Orders Instructions: ED Flank Pain, Uncertain Cause, ED Kidney Stone Undescended No ... Prescriptions: New oxycodone-acetaminophen [Percocet] 5-325 mg tablet 1 tab PO Q6H PRN (Reason: pain) 3 Days Qty: 10 RF: 0 ondansetron 4 mg tablet,disintegrating 4 mg PO Q8H PRN PRN (Reason: Nausea) Qty: 10 RF: 0 No Action loratadine 10 MG tablet 10 mg PO DAILY RF: 0 glimepiride 4 MG tablet 4 mg PO BID RF: 0 lansoprazole 30 MG capsule,delayed release(DR/EC) 30 mg PO DAILY RF: 0 buspirone 7.5 MG tablet 10 mg PO TID RF: 0 spironolactone 50 MG tablet 50 mg PO DAILY RF: 0 insulin glargine 100 UNITS/ML insulin pen 20 units subcut QHS RF: 0 escitalopram oxalate 10 MG tablet 20 mg PO DAILY RF: 0 zolpidem 5 MG tablet 10 mg PO QHS RF: 0 meloxicam 15 MG tablet 15 mg PO DAILY RF: 0 famotidine 20 MG tablet 20 mg PO QHS RF: 0 promethazine 25 MG tablet 25 mg PO Q8H PRN (Reason: Nausea) RF: 0 metoprolol succinate 50 mg Tablet Extended Release 24 Hr 100 mg PO DAILY RF: 0 ondansetron 4 mg tablet,disintegrating 4 mg PO Q8H PRN PRN (Reason: Nausea) Qty: 10 RF: 0 Primary Care Provider: Joaquim Burks Referrals: Joaquim Burks DO [Primary Care Provider] - Disposition Disposition: Home, Self Care
[2021-04-14 05:06] LABS: ALB/GLOB Ratio 0.8 RATIO (0.9-2.4); AST(SGOT) 36 U/L (15-37); Alanine Aminotransfer ALT/SGPT 31 U/L (13-56); Albumin, Serum 3.6 g/dL (3.2-5.0); Alkaline Phosphatase 90 U/L (45-117); Anion Gap 9 (5-15); BUN 13 mg/dL (7-18); BUN/Creat Ratio 12.4 RATIO (10-20); Chloride 97 mmol/L (98-107); Creatinine, Serum 1.05 mg/dL (0.55-1.02); EST Glomerular Filtration Rate 58 mL/min (>60); Est Glom Filt Rate - Afr Amer 70 mL/min (>60); Estimated Creatinine Clearance 53.83 ml/min; Globulin 4.3 g/dL (2.2-4.2); Glucose 223 mg/dL (74-106); Lipase 105 U/L (73-393); Potassium 4.1 mmol/L (3.5-5.1); Protein, Total 7.9 g/dL (6.4-8.2); Sodium Level 133 mmol/L (136-145)
[2021-04-14] MEDS: Morphine 4 MG/ML Syringe IV (05:43)
[2021-04-14 06:14] VITALS: BP 137/79; PULSE 79; RESP 18; O2SAT 96
== END 2021-04-14 06:33 | disposition home or self-care (01) ==
PROVIDERS: Emergency Provider Student in an Organized Health Care Education/Training Program; PCP Student in an Organized Health Care Education/Training Program
DX: N20.2 Calculus of kidney with calculus of ureter (principal); R10.31 Right lower quadrant pain; E66.01 Morbid (severe) obesity due to excess calories; Z68.41 Body mass index [BMI] 40.0-44.9, adult; E78.5 Hyperlipidemia, unspecified; F32.A Depression, unspecified; F41.9 Anxiety disorder, unspecified; I10 Essential (primary) hypertension; K21.9 Gastro-esophageal reflux disease without esophagitis; E11.9 Type 2 diabetes mellitus without complications; J44.9 Chronic obstructive pulmonary disease, unspecified; G47.33 Obstructive sleep apnea (adult) (pediatric); Z87.19 Personal history of other diseases of the digestive system; Z79.4 Long term (current) use of insulin; Z79.82 Long term (current) use of aspirin; Z79.899 Other long term (current) drug therapy; Z87.891 Personal history of nicotine dependence
CPT/HCPCS: 74177; 80053; 83690; 85025; 96374; 99285; Q9967; A4216

== ENCOUNTER 2021-05-25 20:05 | Emergency (ER) | payer MEDICARE, MEDICAID, SELFPAY ==
[2021-05-25 20:06] VITALS: BP 169/96; PULSE 124; RESP 16; TEMP 35.8; O2SAT 94; BMI 42.0
--- NOTE | 2021-05-25 21:13 | EKG12_ITS ---
Test Reason : HYPERTENSION Blood Pressure : / mmHG Vent. Rate : 121 BPM Atrial Rate : 121 BPM P-R Int : 152 ms QRS Dur : 082 ms QT Int : 316 ms P-R-T Axes : 041 -25 061 degrees QTc Int : 448 ms Sinus tachycardia Inferior infarct , age undetermined Anterolateral infarct , age undetermined Abnormal ECG Confirmed by LILLIAN LEPE, JUWAN ([id number]), marketing editor JASPAL TRUJILLO ([id number]) on 05/26/2021 10:18:25 AM Referred By: RENATA Confirmed By:JUWAN SNYDRE MD
--- NOTE | 2021-05-25 21:58 | RAD_ITS ---
STUDY: X-RAY CHEST REASON FOR EXAM: Female, 56 years old. Dizziness TECHNIQUE: Single AP portable view of the chest. COMPARISON: 01/17/2021 FINDINGS: Mild bilateral lower lung streaky opacities. There is no demonstrated pleural abnormality. Normal size heart. Normal mediastinum and christy. Normal visualized pulmonary arteries. Normal visualized aortic arch and descending thoracic aorta. There is no demonstrated abnormality of the visualized soft tissue structures of the upper abdomen. RAD/Chest 1 View (Portable) IMPRESSION: Mild basilar atelectasis/infiltrates. Electronically Signed: Hu Sierra MD at 22:13 EST Tel , Service support ,
[2021-05-25] MEDS: DiphenhydrAMINE 50 MG/ML Syringe 25 MG IV (22:15)
[2021-05-25] MEDS: Metoclopramide 10 MG/2 ML Vial IV (22:15)
[2021-05-25 22:21] LABS: Absolute Neutrophil Count 4.2 X10^3/uL (2.0-7.7); Basophil# 0.08 X10^3/uL; Basophil% 1.1 % (0-1); Eosinophil# 0.12 X10^3/uL; Eosinophils% 1.6 % (0-5); Hematocrit 43.7 % (37-47); Hemoglobin 15.3 g/dL (12.0-15.0); Lymphocyte % 29.1 % (19-41); Mean Corpuscular Hgb 30.3 pg (27.0-32.0); Mean Corpuscular Volume 86.5 fL (81-99); Mean Platelet Vol. 10.7 fl (6.2-12.0); Monocyte# 0.88 X10^3/uL; Monocyte% 11.6 % (0-10); NRBC Flagged by Analyzer 0 % (0-5); Neutrophil # 4.19 X10^3/uL (2.7-7.7); Neutrophil % 55.4 % (47-70); Platelet Count 237 K/mm3 (150-450); RBC Distribution Width CV 12.8 % (11.6-14.6); RBC Distribution Width SD 40.3 fl (35.1-43.9); Red Blood Count 5.05 M/mm3 (4.2-5.4); White Blood Count 7.6 K/mm3 (4.4-11.0)
[2021-05-25 22:28] VITALS: BP 153/94; PULSE 122; RESP 18; O2SAT 95
[2021-05-25 22:42] LABS: Anion Gap 12 (5-15); BUN 20 mg/dL (7-18); BUN/Creat Ratio 18.5 RATIO (10-20); Calcium,Total 8.9 mg/dL (8.5-10.1); Chloride 101 mmol/L (98-107); Creatinine, Serum 1.08 mg/dL (0.55-1.02); EST Glomerular Filtration Rate 56 mL/min (>60); Est Glom Filt Rate - Afr Amer 67 mL/min (>60); Estimated Creatinine Clearance 52.34 ml/min; Glucose 265 mg/dL (74-106); Potassium 3.8 mmol/L (3.5-5.1); Sodium Level 133 mmol/L (136-145); Troponin-I HS 4 pg/mL (3.0-54.0)
--- NOTE | 2021-05-25 22:43 | EX.ED.DYSGE1 ---
HPI History of Present Illness Chief Complaint: Hypertension Narrative Narrative: 56-year-old female with history of hypertension presenting with concern for elevated blood pressures. She states that her blood pressure is 170/120 at home. Patient does admit to history of anxiety as well. She states she received bad news today about her nephew who has some kind of brain tumor. She has been rather worked up about this. She did take her metoprolol today which is 100 mg p.o. daily. She describes a mild headache and some lightheadedness. She is not have any chest pain. She does feel like she is having palpitations. She not had any fever or chills. [facility] Medical History Acute pancreatitis Acute respiratory failure EMILIO (acute kidney injury) Angioedema Anxiety Anxiety and depression Bloody diarrhea C. difficile diarrhea COPD (chronic obstructive pulmonary disease) COPD exacerbation Depression Difficulty breathing Former tobacco use GERD (gastroesophageal reflux disease) Hiatal hernia Hyperglycemia Hyperlipidemia Hypertension Morbid obesity Morbid obesity Neck pain SHARMIN (obstructive sleep apnea) Tracheostomy dependence Type II diabetes mellitus Upper airway obstruction Home Medications loratadine 10 mg PO DAILY 12/16/16 [History Last Taken 08/27/19] glimepiride 4 mg PO BID 05/25/17 [History Last Taken 08/27/19] lansoprazole 30 mg PO DAILY 07/06/18 [History Last Taken 04/07/20 08:00] buspirone 10 mg PO TID 02/20/19 [History Last Taken 08/27/19] spironolactone 50 mg PO DAILY 02/20/19 [History Last Taken 08/27/19] insulin glargine 20 units SUBCUT QHS 07/10/19 [History Last Taken 08/26/19] escitalopram oxalate 20 mg PO DAILY 11/08/19 [History Last Taken Unknown] zolpidem 10 mg PO QHS 03/15/20 [History Last Taken Unknown] famotidine 20 mg PO QHS 09/21/20 [History Last Taken Unknown] meloxicam 15 mg PO DAILY 09/21/20 [History Last Taken Unknown] promethazine 25 mg PO Q8H PRN 09/21/20 [History Last Taken Unknown] metoprolol succinate 100 mg PO DAILY 01/13/21 [History Last Taken Unknown] ondansetron 4 mg PO Q8H PRN PRN #10 tab 04/13/21 [Rx Last Taken Unknown] ondansetron 4 mg PO Q8H PRN PRN #10 tab 04/14/21 [Rx Last Taken Unknown] oxycodone-acetaminophen [Percocet] 1 tab PO Q6H PRN 3 Days #10 tab 04/14/21 [Rx Last Taken Unknown] Allergy/AdvReac Type Severity Reaction Status Date / Time bupropion [From Wellbutrin] Allergy Angioedema Verified 04/14/21 04:06 lisinopril Allergy Angioedema Verified 04/14/21 04:06 sulfamethoxazole Allergy Rash Verified 04/14/21 04:06 [From Bactrim] trimethoprim [From Bactrim] Allergy Rash Verified 04/14/21 04:06 aspirin AdvReac Nausea/Vom/ Verified 04/14/21 04:06 Diarrhea hydrocodone [From Vicodin] AdvReac Nausea/Vom/ Verified 04/14/21 04:06 Diarrhea rosuvastatin [From Crestor] AdvReac PT UNSURE Verified 04/14/21 04:06 OF REACTION Surgical History s/p bladder sling S/P laparoscopic cholecystectomy s/p novasure S/P tubal ligation Status post tracheostomy Social History Smoking Status: Former smoker substance use type: does not use ROS ROS ED Constitutional Constitutional ED: Denies chills, fever(s) or sweats Eyes Eyes: Denies blurry vision or change in vision ENT ENT ED: Denies ear pain or sore throat Cardiovascular Cardiovascular: Denies chest pain, palpitations or racing heartbeat Respiratory/Chest Respiratory/Chest: Denies cough, dyspnea or sputum Gastrointestinal Gastrointestinal: Denies abdominal pain, constipation, diarrhea, nausea or vomiting Genitourinary Genitourinary ED: Denies dysuria, hematuria or urinary frequency Musculoskeletal Musculoskeletal: Denies arthralgias, myalgias or neck pain Integumentary Denies abscess, Abrasions or rash Neurologic Neurologic: Reports headache(s) and other Details: Lightheadedness ; Denies paresthesias or weakness Psychiatric Psychiatric: Reports anxiety; Denies depression, suicidal ideation or suicidal thoughts Endocrine Endocrinology: Denies polydipsia or polyuria EXAM Physical Exam Const Vital Signs: 05/25/21 20:06 05/25/21 22:28 05/25/21 22:31 Temperature 96.5 F L Temperature Source Temporal Pulse Rate 124 H 122 H Respiratory Rate 16 18 Respiratory Effort Normal Non-Labored Respiratory Pattern Normal Blood Pressure 169/96 H 153/94 H Blood Pressure Mean 120 113 Pulse Ox 94 95 Oxygen Delivery Method Room Air Room Air Positive well nourished and oriented x3 General Appearance ED: Negative for pallor HEENT Reports normocephalic, head/scalp atraumatic and moist mucous membranes Eyes PERRL and EOMs intact bilaterally Neck no lymphadenopathy and supple Chest Wall inspection of chest normal and palpation of chest normal Resp normal respiratory effort and clear to auscultation bilaterally Auscultation: Negative for rales, rhonchi or wheezes Cardio regular rate and regular rhythm Narrative: Deferred Back/Spine Cervical Spine: Negative for cervical spine tenderness Extremity normal to inspection General Extremety ED: Negative for edema or tenderness General Extremity: Negative for edema Neuro oriented x3, CN's II-XII intact bilaterally, moves all extremities, no focal motor deficits and no sensory deficits noted Sensorium / Orientation: awake, alert, oriented to person, oriented to place and oriented to time Motor Exam: strength 5/5 throughout Psych mental status grossly normal Appearance: grossly normal Attitude: No agitated Skin no rashes or lesions noted and no wounds General Skin Exam: Negative for jaundice or pallor MDM MDM MDM Narrative Medical decision making narrative: Due to patient's complaint I did obtain blood work. [facility] says she is slightly hyperglycemic at 265. She has no anion gap. Creatinine slightly elevated 1.08 and previously about a month and a half ago it was 1.05. This is not a significant interval change. EKG on my interpretation shows a sinus tachycardia with a ventricular rate of 121 bpm without sign of ischemic change. Chest x-ray on my interpretation shows no acute cardiopulmonary process. The radiologist does speculate as to whether there is atelectasis versus infiltrates. I do not believe the patient has pneumonia based on her blood work and vitals. High-sensitivity troponin is 4. Patient is not describing any chest pain patient was to have her headache treated I did give her Reglan and Benadryl. I did review the medical record and she had a CT of the brain in December which was normal. Patient reevaluated at 1045 and appears to be doing well. At this point I feel the patient is stable for discharge home. Her blood pressure is now 153/94. She is still slightly tachycardic but anxious. Patient will follow up with her PCP and keep a blood pressure diary. Impression: 1. headache 2. Hypertension established?[id number] 3. Palpitations Lab Data Attestation: I reviewed the patient's lab results. Labs: Laboratory Results - last 24 hr 05/25/21 05/25/21 22:10 22:10 WBC 7.6 RBC 5.05 Hgb 15.3 H Hct 43.7 MCV 86.5 MCH 30.3 MCHC 35.0 RDW Std Deviation 40.3 RDW Coeff of [place] 12.8 Plt Count 237 MPV 10.7 Immature Gran % (Auto) 1.200 H Neut % (Auto) 55.4 Lymph % (Auto) 29.1 [place] % (Auto) 11.6 H Eos % (Auto) 1.6 Baso % (Auto) 1.1 H Absolute Neuts (auto) 4.2 Absolute Lymphs (auto) 2.20 Nucleated RBC % 0 Sodium 133 L Potassium 3.8 Chloride 101 Carbon Dioxide 20.0 L Anion Gap 12 BUN 20 H Creatinine 1.08 H Estim Creat Clear Calc 52.34 Est GFR (MDRD) Af Amer 67 Est GFR (MDRD) Non-Af 56 L BUN/Creatinine Ratio 18.5 Glucose 265 H Calcium 8.9 Troponin I High Sens 4 Radiography Diagnostic Testing: Clinical Impression(s) from Imaging Studies Chest X-Ray 05/25/21 21:58 IMPRESSION: Mild basilar atelectasis/infiltrates. Electronically Signed: Hu Sierra MD at 22:13 EST Tel , Service support , Discharge Plan Triage Chief Complaint: Hypertension ED Provider: Michael Lopez Dx/Rx/DC Orders Instructions: Understanding Headache Pain, ED Hypertension, Established Prescriptions: No Action loratadine 10 MG tablet 10 mg PO DAILY RF: 0 glimepiride 4 MG tablet 4 mg PO BID RF: 0 lansoprazole 30 MG capsule,delayed release(DR/EC) 30 mg PO DAILY RF: 0 buspirone 7.5 MG tablet 10 mg PO TID RF: 0 spironolactone 50 MG tablet 50 mg PO DAILY RF: 0 insulin glargine 100 UNITS/ML insulin pen 20 units subcut QHS RF: 0 escitalopram oxalate 10 MG tablet 20 mg PO DAILY RF: 0 zolpidem 5 MG tablet 10 mg PO QHS RF: 0 meloxicam 15 MG tablet 15 mg PO DAILY RF: 0 famotidine 20 MG tablet 20 mg PO QHS RF: 0 promethazine 25 MG tablet 25 mg PO Q8H PRN (Reason: Nausea) RF: 0 metoprolol succinate 50 mg Tablet Extended Release 24 Hr 100 mg PO DAILY RF: 0 ondansetron 4 mg tablet,disintegrating 4 mg PO Q8H PRN PRN (Reason: Nausea) Qty: 10 RF: 0 oxycodone-acetaminophen [Percocet] 5-325 mg tablet 1 tab PO Q6H PRN (Reason: pain) 3 Days Qty: 10 RF: 0 ondansetron 4 mg tablet,disintegrating 4 mg PO Q8H PRN PRN (Reason: Nausea) Qty: 10 RF: 0 Primary Care Provider: Joaquim Burks Referrals: Joaquim Burks DO [Primary Care Provider] - Disposition Disposition: Home, Self Care
[2021-05-25 23:04] VITALS: BP 151/94; PULSE 118; RESP 16; O2SAT 96
== END 2021-05-25 23:18 | disposition home or self-care (01) ==
PROVIDERS: Emergency Provider Student in an Organized Health Care Education/Training Program; PCP Student in an Organized Health Care Education/Training Program
DX: R51.9 Headache, unspecified (principal); I10 Essential (primary) hypertension; R00.2 Palpitations; E11.65 Type 2 diabetes mellitus with hyperglycemia; E66.01 Morbid (severe) obesity due to excess calories; Z68.41 Body mass index [BMI] 40.0-44.9, adult; E78.5 Hyperlipidemia, unspecified; F32.A Depression, unspecified; F41.9 Anxiety disorder, unspecified; J44.9 Chronic obstructive pulmonary disease, unspecified; G47.33 Obstructive sleep apnea (adult) (pediatric); K21.9 Gastro-esophageal reflux disease without esophagitis; Z87.19 Personal history of other diseases of the digestive system; Z79.4 Long term (current) use of insulin; Z79.82 Long term (current) use of aspirin; Z79.899 Other long term (current) drug therapy; Z87.891 Personal history of nicotine dependence
CPT/HCPCS: 71045; 80048; 84484; 85025; 93005; 96374; 96375; 99285; A4216

== ENCOUNTER 2021-08-25 05:19 | Emergency (ER) | payer MEDICARE, MEDICAID, SELFPAY ==
[2021-08-25 05:20] VITALS: BP 157/106; PULSE 92; RESP 18; TEMP 36.4; O2SAT 97; BMI 41.3
--- NOTE | 2021-08-25 05:43 | CT_ITS ---
STUDY: CT ABDOMEN AND PELVIS WITHOUT CONTRAST REASON FOR EXAM: Female, 56 years old patient with left-sided flank pain. RADIATION DOSAGE (If Supplied By Facility): CTDIvol = ( 23.33 ) mGy, DLP = ( 1223.91 ) mGycm TECHNIQUE: Transaxial images were obtained from the dome of the diaphragm to the symphysis pubis without oral contrast, and without intravenous contrast. Sagittal and coronal images were reconstructed. Individualized dose optimization techniques were used for this CT. COMPARISON: CT abdomen and pelvis dated 04/14/2021. FINDINGS: The visualized lung bases are unremarkable. The visualized portions of the heart are within normal limits. There is hepatomegaly with diffuse hepatic enlargement. Liver measures approximately 20.8 cm in length. There is non-visualization of the gallbladder, which may be secondary to either contraction or a prior cholecystectomy. Normal spleen. Normal pancreas. Normal bilateral adrenal glands. There are nonobstructing renal calculi measuring up to 6 mm in greatest dimension. Both kidneys have normal size and position. There is no evidence for hydronephrosis, hydroureter or radiopaque ureteral calculus. Normal visualized stomach. There is no obvious dilated bowel, ascites or pneumoperitoneum. The small bowel has a grossly normal appearance. There is acute inflammation left lower quadrant associated with abnormal appearing descending colon possibly secondary to acute diverticulitis. There is no evidence for abscess. Descending colon is nondistended. Stool and/or gas is visible in the ascending and transverse colon. The appendix is visualized and appears normal. Normal abdominal aorta. Normal inferior vena cava. Normal retroperitoneum. Normal urinary bladder. Normal visualized uterus. Surgical clips are visible at the adnexal areas probably secondary to tubal ligation. Normal abdominal wall. Normal osseous structures. CT/Abdomen/Pelvis without Cont IMPRESSION: 1. Findings are consistent with acute diverticulitis involving the distal descending colon and proximal sigmoid colon. 2. Nonobstructing renal calculi. Electronically Signed: Natalia Carvajal MD at 6:32 EST ,
[2021-08-25] MEDS: Ondansetron 4 MG/2 ML Vial IV (05:50)
[2021-08-25 05:51] LABS: Mucous, Urine 0 SEEN /hpf (<or=2+); Red Blood Cells-Urine 0 SEEN /hpf (0-5)
[2021-08-25] MEDS: Morphine 4 MG/ML Syringe IV (05:51)
[2021-08-25 05:52] LABS: Absolute Lymphocyte Count 1.85 X10^3/uL (0.83-4.51); Absolute Neutrophil Count 5.6 X10^3/uL (2.0-7.7); Basophil# 0.07 X10^3/uL; Basophil% 0.8 % (0-1); Eosinophil# 0.18 X10^3/uL; Eosinophils% 2.1 % (0-5); Hematocrit 40.7 % (37-47); Hemoglobin 13.8 g/dL (12.0-15.0); Lymphocyte # 1.85 X10^3/ul (0.83-4.51); Lymphocyte % 21.4 % (19-41); Mean Corp Hgb Conc 33.9 g/dL (32-36); Mean Corpuscular Hgb 29.6 pg (27.0-32.0); Mean Corpuscular Volume 87.3 fL (81-99); Mean Platelet Vol. 10.7 fl (6.2-12.0); Monocyte# 0.92 X10^3/uL; Monocyte% 10.7 % (0-10); NRBC Flagged by Analyzer 0 % (0-5); Neutrophil # 5.57 X10^3/uL (2.7-7.7); Neutrophil % 64.5 % (47-70); Platelet Count 231 K/mm3 (150-450); RBC Distribution Width CV 12.9 % (11.6-14.6); RBC Distribution Width SD 41.1 fl (35.1-43.9); Red Blood Count 4.66 M/mm3 (4.2-5.4); White Blood Count 8.6 K/mm3 (4.4-11.0)
[2021-08-25 05:57] LABS: Color, Urine Yellow (Yellow); Glucose, Dipstick Normal (Normal); Ketone-Dipstick 5 mg/dl (Negative); Leukocyte Esterase-Dipstick 25 /ul (Negative); Nitrite-Dipstick Negative (Negative); Occult Blood-Urine 10 /ul (Negative); Protein-Dipstick 30 mg/dl (Negative); Urine Bilirubin Dipstick Negative (Negative); Urine Clarity Clear (Clear); Urine Urobilinogen 1 mg/dl (Normal)
--- NOTE | 2021-08-25 06:00 | ED.VIS.GI ---
HPI HPI - GI History of Present Illness Chief Complaint: Abd Pain Narrative Narrative: 56-year-old female presenting with abdominal pain. Patient initially points to the lower abdomen on both sides. She has nausea as well. She states Tylenol is not helping. She complains of sometimes urinating frequently and sometimes not. She has a history of kidney stones. She denies constipation or diarrhea. No fever or chills. PFSH PFS Medical History (Updated 08/25/21 @ 06:[address] Michael Lopez, DO) Acute pancreatitis Acute respiratory failure EMILIO (acute kidney injury) Angioedema Anxiety Anxiety and depression Bloody diarrhea C. difficile diarrhea COPD (chronic obstructive pulmonary disease) COPD exacerbation Depression Difficulty breathing Former tobacco use GERD (gastroesophageal reflux disease) Hiatal hernia Hyperglycemia Hyperlipidemia Hypertension Morbid obesity Morbid obesity Neck pain SHARMIN (obstructive sleep apnea) Tracheostomy dependence Type II diabetes mellitus Upper airway obstruction Home Medications loratadine 10 mg PO DAILY 12/16/16 [History Last Taken 08/27/19] glimepiride 4 mg PO BID 05/25/17 [History Last Taken 08/27/19] lansoprazole 30 mg PO DAILY 07/06/18 [History Last Taken 04/07/20 08:00] buspirone 10 mg PO TID 02/20/19 [History Last Taken 08/27/19] spironolactone 50 mg PO DAILY 02/20/19 [History Last Taken 08/27/19] insulin glargine 26 units SUBCUT QHS 07/10/19 [History Last Taken 08/26/19] escitalopram oxalate 20 mg PO DAILY 11/08/19 [History Last Taken Unknown] zolpidem 10 mg PO QHS 03/15/20 [History Last Taken Unknown] famotidine 20 mg PO QHS 09/21/20 [History Last Taken Unknown] meloxicam 15 mg PO DAILY 09/21/20 [History Last Taken Unknown] promethazine 25 mg PO Q8H PRN 09/21/20 [History Last Taken Unknown] metoprolol succinate 150 mg PO DAILY 01/13/21 [History Last Taken Unknown] ondansetron 4 mg PO Q8H PRN PRN #10 tab 04/13/21 [Rx Last Taken Unknown] amoxicillin-pot clavulanate 1 tab PO BID #24 tab 08/25/21 [Rx Last Taken Unknown] oxycodone-acetaminophen [Percocet] 1 tab PO Q6H PRN 3 Days #12 tab 08/25/21 [Rx Last Taken Unknown] promethazine 25 mg PO TID PRN #14 tab 08/25/21 [Rx Last Taken Unknown] Allergy/AdvReac Type Severity Reaction Status Date / Time bupropion [From Wellbutrin] Allergy Angioedema Verified 08/25/21 05:25 lisinopril Allergy Angioedema Verified 08/25/21 05:25 sulfamethoxazole Allergy Rash Verified 08/25/21 05:25 [From Bactrim] trimethoprim [From Bactrim] Allergy Rash Verified 08/25/21 05:25 aspirin AdvReac Nausea/Vom/ Verified 08/25/21 05:25 Diarrhea hydrocodone [From Vicodin] AdvReac Nausea/Vom/ Verified 08/25/21 05:25 Diarrhea rosuvastatin [From Crestor] AdvReac PT UNSURE Verified 08/25/21 05:25 OF REACTION Surgical History s/p bladder sling S/P laparoscopic cholecystectomy s/p novasure S/P tubal ligation Status post tracheostomy Social History Smoking Status: Former smoker substance use type: does not use ROS ROS ED Constitutional Constitutional ED: Denies chills or fever(s) ENT ENT ED: Denies rhinorrhea or sore throat Cardiovascular Cardiovascular: Denies chest pain or palpitations Respiratory/Chest Respiratory/Chest: Denies cough or dyspnea Gastrointestinal Gastrointestinal: Reports abdominal pain and nausea; Denies constipation, diarrhea or vomiting Genitourinary Genitourinary ED: Reports dysuria and urinary frequency; Denies hematuria Musculoskeletal Musculoskeletal: Reports other Details: Left flank pain ; Denies arthralgias or myalgias Integumentary Denies rash Neurologic Neurologic: Denies headache(s) or paresthesias EXAM Physical Exam Const Vital Signs: 08/25/21 05:20 08/25/21 06:50 Temperature 97.6 F L Temperature Source Oral Pulse Rate 92 78 Respiratory Rate 18 18 Blood Pressure 157/106 H 156/60 H Blood Pressure Mean 123 Pulse Ox 97 96 Oxygen Delivery Method Room Air Positive obese General Appearance ED: NAD; Negative for pallor Nutritional Appearance: obese HEENT normocephalic and atraumatic Eyes PERRL and EOMs intact bilaterally Resp normal respiratory effort and clear to auscultation bilaterally Cardio regular rate and regular rhythm GI non-distended Palpation: soft and tender LLQ and RLQ Back/Spine General Back: CVA tenderness left Extremity full ROM Neuro CN's II-XII intact bilaterally Sensorium / Orientation: alert, oriented to person, oriented to place and oriented to time Psych mental status grossly normal Skin General Skin Exam: Negative for jaundice or pallor MDM MDM MDM Narrative Medical decision making narrative: Patient with left-sided flank pain. She was concerned for a kidney stone she has had one here on the left before. I obtained blood work and her CBC and CMP are unremarkable. Urinalysis is negative for infection. CT of the abdomen pelvis is performed without contrast to look for kidney stone and she does have a 3 mm nonobstructing left ureteral stone but also has acute diverticulitis. Patient was counseled on findings and normal blood work. She will be started on Augmentin, Percocet, Phenergan for home. She is given return precautions. Impression: 1. Acute diverticulitis Lab Data Labs: Laboratory Results - last 24 hr 08/25/21 08/25/21 08/25/21 05:30 05:30 05:37 WBC 8.6 RBC 4.66 Hgb 13.8 Hct 40.7 MCV 87.3 MCH 29.6 MCHC 33.9 RDW Std Deviation 41.1 RDW Coeff of [place] 12.9 Plt Count 231 MPV 10.7 Immature Gran % (Auto) 0.500 Neut % (Auto) 64.5 Lymph % (Auto) 21.4 [place] % (Auto) 10.7 H Eos % (Auto) 2.1 Baso % (Auto) 0.8 Absolute Neuts (auto) 5.6 Absolute Lymphs (auto) 1.85 Nucleated RBC % 0 Sodium 135 L Potassium 3.8 Chloride 102 Carbon Dioxide 26.0 Anion Gap 7 BUN 14 Creatinine 0.83 Estim Creat Clear Calc 68.10 Est GFR (MDRD) Af Amer 92 Est GFR (MDRD) Non-Af 76 BUN/Creatinine Ratio 16.9 Glucose 201 H Calcium 8.8 Total Bilirubin 0.30 AST 16 ALT 21 Alkaline Phosphatase 118 H Total Protein 7.8 Albumin 3.5 Globulin 4.3 H Albumin/Globulin Ratio 0.8 L Urine Color Yellow Urine Clarity Clear Urine pH 6.0 Ur Specific [place] 1.020 Urine Protein 30 H Urine Glucose (UA) Normal Urine Ketones 5 H Urine Occult Blood 10 H Urine Nitrite Negative Urine Bilirubin Negative Urine Urobilinogen 1 H Ur Leukocyte Esterase 25 H Urine RBC 0 SEEN Urine WBC 0-5 SEEN Ur Squamous Epith Cells 0-5 SEEN Urine Bacteria 2+ Urine Mucus 0 SEEN Radiography Diagnostic Testing: Clinical Impression(s) from Imaging Studies Abdomen/Pelvis CT 08/25/21 05:43 IMPRESSION: 1. Findings are consistent with acute diverticulitis involving the distal descending colon and proximal sigmoid colon. 2. Nonobstructing renal calculi. Electronically Signed: Natalia Carvajal MD at 6:32 EST Reading Location ID and State: [facility] / ID , Service support , Discharge Plan Triage Chief Complaint: Abd Pain ED Provider: Michael Lopez Dx/Rx/DC Orders Clinical Impression: Diverticulitis Instructions: ED Diverticulitis Prescriptions: New amoxicillin-pot clavulanate 875-125 mg tablet 1 tab PO BID Qty: 24 RF: 0 oxycodone-acetaminophen [Percocet] 5-325 mg tablet 1 tab PO Q6H PRN (Reason: pain) 3 Days Qty: 12 RF: 0 promethazine 25 mg tablet 25 mg PO TID PRN (Reason: nausea and vomiting) Qty: 14 RF: 0 No Action loratadine 10 MG tablet 10 mg PO DAILY RF: 0 glimepiride 4 MG tablet 4 mg PO BID RF: 0 lansoprazole 30 MG capsule,delayed release(DR/EC) 30 mg PO DAILY RF: 0 buspirone 7.5 MG tablet 10 mg PO TID RF: 0 spironolactone 50 MG tablet 50 mg PO DAILY RF: 0 insulin glargine 100 UNITS/ML insulin pen 26 units subcut QHS RF: 0 escitalopram oxalate 10 MG tablet 20 mg PO DAILY RF: 0 zolpidem 5 MG tablet 10 mg PO QHS RF: 0 meloxicam 15 MG tablet 15 mg PO DAILY RF: 0 famotidine 20 MG tablet 20 mg PO QHS RF: 0 promethazine 25 MG tablet 25 mg PO Q8H PRN (Reason: Nausea) RF: 0 metoprolol succinate 50 mg Tablet Extended Release 24 Hr 150 mg PO DAILY RF: 0 ondansetron 4 mg tablet,disintegrating 4 mg PO Q8H PRN PRN (Reason: Nausea) Qty: 10 RF: 0 Primary Care Provider: Joaquim Burks Referrals: Joaquim Burks DO [Primary Care Provider] - Disposition Disposition: Home, Self Care Discharge Date/Time: 08/25/21 06:50
[2021-08-25 06:06] LABS: ALB/GLOB Ratio 0.8 RATIO (0.9-2.4); AST(SGOT) 16 U/L (15-37); Alanine Aminotransfer ALT/SGPT 21 U/L (13-56); Albumin, Serum 3.5 g/dL (3.2-5.0); Alkaline Phosphatase 118 U/L (45-117); Anion Gap 7 (5-15); BUN 14 mg/dL (7-18); BUN/Creat Ratio 16.9 RATIO (10-20); Calcium,Total 8.8 mg/dL (8.5-10.1); Chloride 102 mmol/L (98-107); Creatinine, Serum 0.83 mg/dL (0.55-1.02); EST Glomerular Filtration Rate 76 mL/min (>60); Est Glom Filt Rate - Afr Amer 92 mL/min (>60); Globulin 4.3 g/dL (2.2-4.2); Glucose 201 mg/dL (74-106); Potassium 3.8 mmol/L (3.5-5.1); Protein, Total 7.8 g/dL (6.4-8.2); Sodium Level 135 mmol/L (136-145)
[2021-08-25 06:19] LABS: Bacteria 2+ /hpf (None Seen); Squamous Epithelial Cells - UA 0-5 SEEN /hpf (5-10); White Blood Cells 0-5 SEEN /hpf (0-5)
[2021-08-25] MEDS: Amox/Clavulanate 875 MG Tablet PO (06:44)
[2021-08-25] MEDS: oxyCODONE 5 MG Tablet PO (06:44)
[2021-08-25 06:50] VITALS: BP 156/60; PULSE 78; RESP 18; O2SAT 96
== END 2021-08-25 06:50 | disposition home or self-care (01) ==
PROVIDERS: Emergency Provider Student in an Organized Health Care Education/Training Program; PCP Student in an Organized Health Care Education/Training Program; Visit Provider Student in an Organized Health Care Education/Training Program
DX: K57.92 Diverticulitis of intestine, part unspecified, without perforation or abscess without bleeding (principal); J44.9 Chronic obstructive pulmonary disease, unspecified; E66.01 Morbid (severe) obesity due to excess calories; Z68.41 Body mass index [BMI] 40.0-44.9, adult; E11.9 Type 2 diabetes mellitus without complications; Z79.4 Long term (current) use of insulin; Z87.891 Personal history of nicotine dependence; E78.5 Hyperlipidemia, unspecified; I10 Essential (primary) hypertension; F41.9 Anxiety disorder, unspecified; F32.A Depression, unspecified; Z87.19 Personal history of other diseases of the digestive system; G47.33 Obstructive sleep apnea (adult) (pediatric); Z79.899 Other long term (current) drug therapy; Z90.49 Acquired absence of other specified parts of digestive tract; N20.1 Calculus of ureter
CPT/HCPCS: 74176; 80053; 81001; 85025; 96374; 96375; 99283; A4216; J2405

== ENCOUNTER 2021-09-22 03:08 | Emergency (ER) | payer MEDICARE, MEDICAID, SELFPAY ==
[2021-09-22 03:09] VITALS: BP 160/102; PULSE 86; RESP 15; TEMP 36.4; O2SAT 98; BMI 41.5
[2021-09-22 03:13] VITALS: BP 160/102; PULSE 86; RESP 15; TEMP 36.4; O2SAT 98
--- NOTE | 2021-09-22 03:23 | CT_ITS ---
HISTORY: Kidney Stone TECHNIQUE: Multiple axial images were obtained of the abdomen and pelvis without oral or IV contrast. Coronal and sagittal reformats obtained. A radiation dose optimization technique was used for this scan. COMPARISON: August 25, 2021 CT FINDINGS: # of images incl. paperwork: [id number] LUNG BASES: Unremarkable. LIVER T BILIARY TRACT: Cholecystectomy. Hepatic steatosis. Hepatomegaly. ADRENAL GLANDS: Unremarkable. SPLEEN: Unremarkable. PANCREAS: Unremarkable. KIDNEYS/URETERS/BLADDER: Left ureteral vesicle junction 5.5 mm stone with minimal relative left hydroureter. No hydronephrosis. Additional bilateral renal stones are present up to 7 mm in size on the left. No significant perinephric stranding. Unremarkable right ureter and bladder. LYMPH NODES: No suspicious adenopathy. STOMACH, SMALL AND LARGE BOWEL: No acute gastric finding. No small bowel obstruction or gross wall thickening. Normal appendix. No acute colonic finding. Distal colonic diverticulosis with minimal fat stranding in the sigmoid colon, significantly decreased from August 25, 2021 ASCITES/FREE AIR: No free fluid or free air. AORTA: Atherosclerosis without ectasia. PELVIS: Unremarkable uterus. No evidence of adnexal mass. MUSCULOSKELETAL: No acute osseous finding. CT/Abdomen/Pelvis without Cont IMPRESSION: Left ureteral vesicle junction 5.5 mm stone with minimal left hydroureter. No ramandeep hydronephrosis. Additional residual bilateral nephrolithiasis. Hepatic steatosis and hepatomegaly. Distal colonic diverticulosis with minimal residual stranding in the sigmoid colon, significantly decreased from August 25, 2021 compatible with recent diverticulitis.. Individualized dose optimization techniques were used for this CT. at 0420 Reported and signed by: Jasen Stevens MD Electronically Signed: Jasen Stevens MD at 4:18 EDT ,
--- NOTE | 2021-09-22 03:24 | EDS_ITS ---
HPI History of Present Illness Chief Complaint: Flank Pain Informant: patient Onset/Context/Timing Onset: Days (3 days) Context: Gradual Onset Timing: Waxes and wanes Current Severity: Moderate Maximum Severity: Moderate Narrative Narrative: Patient presents with 3-day history of left flank pain. She does report some dysuria. She has a history of kidney stones and states that on a recent CT she was told she had a left-sided stone. She recently completed antibiotics for diverticulitis. She denies fever or chills. [facility] Medical History (Updated 09/22/21 @ 05:[address] Johanny Irene MD) Acute pancreatitis Acute respiratory failure Angioedema Anxiety and depression C. difficile diarrhea COPD (chronic obstructive pulmonary disease) Depression Difficulty breathing Former tobacco use GERD (gastroesophageal reflux disease) Hiatal hernia Hyperglycemia Hyperlipidemia Hypertension Morbid obesity Neck pain SHARMIN (obstructive sleep apnea) Tracheostomy dependence Type II diabetes mellitus Upper airway obstruction Home Medications loratadine 10 mg PO DAILY 12/16/16 [History Last Taken 08/27/19] glimepiride 4 mg PO BID 05/25/17 [History Last Taken 08/27/19] lansoprazole 30 mg PO DAILY 07/06/18 [History Last Taken 04/07/20 08:00] buspirone 10 mg PO TID 02/20/19 [History Last Taken 08/27/19] spironolactone 50 mg PO DAILY 02/20/19 [History Last Taken 08/27/19] insulin glargine 26 units SUBCUT QHS 07/10/19 [History Last Taken 08/26/19] escitalopram oxalate 20 mg PO DAILY 11/08/19 [History Last Taken Unknown] zolpidem 10 mg PO QHS 03/15/20 [History Last Taken Unknown] famotidine 20 mg PO QHS 09/21/20 [History Last Taken Unknown] meloxicam 15 mg PO DAILY 09/21/20 [History Last Taken Unknown] promethazine 25 mg PO Q8H PRN 09/21/20 [History Last Taken Unknown] metoprolol succinate 150 mg PO DAILY 01/13/21 [History Last Taken Unknown] ondansetron 4 mg PO Q8H PRN PRN #10 tab 04/13/21 [Rx Last Taken Unknown] oxycodone-acetaminophen [Percocet] 1 tab PO Q6H PRN 3 Days #12 tab 08/25/21 [Rx Last Taken Unknown] promethazine 25 mg PO TID PRN #14 tab 08/25/21 [Rx Last Taken Unknown] atorvastatin 10 mg PO QHS 09/22/21 [History Last Taken Unknown] ondansetron 4 mg PO Q8H PRN #10 tab 09/22/21 [Rx Last Taken Unknown] oxycodone-acetaminophen [Percocet] 1 tab PO Q6H PRN 3 Days #10 tab 09/22/21 [Rx Last Taken Unknown] tamsulosin [Flomax] 0.4 mg PO DAILY #7 cap 09/22/21 [Rx Last Taken Unknown] Allergy/AdvReac Type Severity Reaction Status Date / Time bupropion [From Wellbutrin] Allergy Angioedema Verified 09/22/21 03:14 lisinopril Allergy Angioedema Verified 09/22/21 03:14 sulfamethoxazole Allergy Rash Verified 09/22/21 03:14 [From Bactrim] trimethoprim [From Bactrim] Allergy Rash Verified 09/22/21 03:14 aspirin AdvReac Nausea/Vom/ Verified 09/22/21 03:14 Diarrhea hydrocodone [From Vicodin] AdvReac Nausea/Vom/ Verified 09/22/21 03:14 Diarrhea rosuvastatin [From Crestor] AdvReac PT UNSURE Verified 09/22/21 03:14 OF REACTION Surgical History s/p bladder sling S/P laparoscopic cholecystectomy s/p novasure S/P tubal ligation Status post tracheostomy Social History Smoking Status: Former smoker substance use type: does not use ROS ROS ED Constitutional Constitutional ED: Reports chills; Denies fever(s) Eyes Eyes: Denies blurry vision ENT ENT ED: Denies rhinorrhea or sore throat Cardiovascular Cardiovascular: Denies chest pain or palpitations Respiratory/Chest Respiratory/Chest: Denies cough or dyspnea Gastrointestinal Gastrointestinal: Reports abdominal pain; Denies diarrhea or vomiting Genitourinary Genitourinary ED: Reports dysuria Musculoskeletal Musculoskeletal: Reports back pain Integumentary Denies rash Neurologic Neurologic: Denies headache(s) Allergic/Immunologic Allergic/Immunologic ED: Denies urticaria EXAM Physical Exam Const Vital Signs: 09/22/21 03:09 09/22/21 03:13 09/22/21 03:15 Temperature 97.6 F L 97.6 F L Temperature Source Oral Oral Pulse Rate 86 86 Respiratory Rate 15 15 Respiratory Effort Normal Non-Labored Respiratory Pattern Normal Blood Pressure 160/102 H 160/102 H Blood Pressure Mean 121 121 Pulse Ox 98 98 Oxygen Delivery Method Room Air Room Air 09/22/21 05:10 09/22/21 05:13 Temperature 98.2 F Temperature Source Temporal Pulse Rate 74 Respiratory Rate 17 17 Respiratory Effort Respiratory Pattern Blood Pressure 143/83 H Blood Pressure Mean 103 Pulse Ox 97 Oxygen Delivery Method Room Air Positive well nourished and well developed General Appearance ED: well developed HEENT Reports moist mucous membranes Eyes PERRL and EOMs intact bilaterally Neck no lymphadenopathy and supple Chest Wall inspection of chest normal and palpation of chest normal Resp normal respiratory effort and clear to auscultation bilaterally Cardio regular rate and regular rhythm GI non-tender Auscultation: hypoactive bowel sounds Palpation: soft Extremity normal to inspection Neuro oriented x3 Sensorium / Orientation: alert Psych mental status grossly normal Skin no rashes or lesions noted MDM MDM MDM Narrative Medical decision making narrative: Patient given morphine, Toradol, Zofran, IV fluids. Lab work, urinalysis, CT flank obtained. Lab Data Attestation: I reviewed the patient's lab results. Labs: Laboratory Results - last 24 hr 09/22/21 09/22/21 09/22/21 03:20 03:20 03:30 WBC 7.8 RBC 5.38 Hgb 16.1 H Hct 47.7 H MCV 88.7 MCH 29.9 MCHC 33.8 RDW Std Deviation 42.2 RDW Coeff of Cecil 13.1 Plt Count 253 MPV 11.4 Immature Gran % (Auto) 0.600 Neut % (Auto) 43.4 L Lymph % (Auto) 41.6 H [place] % (Auto) 10.2 H Eos % (Auto) 2.9 Baso % (Auto) 1.3 H Absolute Neuts (auto) 3.4 Absolute Lymphs (auto) 3.25 Nucleated RBC % 0 Sodium Cancelled Potassium Cancelled Chloride Cancelled Carbon Dioxide Cancelled Anion Gap Cancelled BUN Cancelled Creatinine Cancelled Estim Creat Clear Calc Cancelled Est GFR (MDRD) Af Amer Cancelled Est GFR (MDRD) Non-Af Cancelled BUN/Creatinine Ratio Cancelled Glucose Cancelled Calcium Cancelled Urine Color Yellow Urine Clarity Clear Urine pH 5.0 Ur Specific [place] 1.025 Urine Protein 30 H Urine Glucose (UA) Normal Urine Ketones 5 H Urine Occult Blood 50 H Urine Nitrite Negative Urine Bilirubin Negative Urine Urobilinogen Normal Ur Leukocyte Esterase 500 H Urine RBC 0-5 SEEN Urine WBC 10-25 SEEN Ur Squamous Epith Cells 5-10 SEEN Urine Bacteria 2+ Urine Mucus 2+ 09/22/21 04:05 WBC RBC Hgb Hct MCV MCH MCHC RDW Std Deviation RDW Coeff of Cecil Plt Count MPV Immature Gran % (Auto) Neut % (Auto) Lymph % (Auto) [place] % (Auto) Eos % (Auto) Baso % (Auto) Absolute Neuts (auto) Absolute Lymphs (auto) Nucleated RBC % Sodium 138 Potassium 3.4 L Chloride 105 Carbon Dioxide 25.0 Anion Gap 8 BUN 19 H Creatinine 0.75 Estim Creat Clear Calc 75.37 Est GFR (MDRD) Af Amer 103 Est GFR (MDRD) Non-Af 85 BUN/Creatinine Ratio 25.5 H Glucose 183 H Calcium 8.3 L Urine Color Urine Clarity Urine pH Ur Specific [place] Urine Protein Urine Glucose (UA) Urine Ketones Urine Occult Blood Urine Nitrite Urine Bilirubin Urine Urobilinogen Ur Leukocyte Esterase Urine RBC Urine WBC Ur Squamous Epith Cells Urine Bacteria Urine Mucus Radiography Diagnostic Testing: Clinical Impression(s) from Imaging Studies Abdomen/Pelvis CT 09/22/21 03:23 IMPRESSION: Left ureteral vesicle junction 5.5 mm stone with minimal left hydroureter. No ramandeep hydronephrosis. Additional residual bilateral nephrolithiasis. Hepatic steatosis and hepatomegaly. Distal colonic diverticulosis with minimal residual stranding in the sigmoid colon, significantly decreased from August 25, 2021 compatible with recent diverticulitis.. Individualized dose optimization techniques were used for this CT. at 0420 Reported and signed by: Jasen Stevens MD Electronically Signed: Jasen Stevens MD at 4:18 EDT Reading Location ID and State: [facility] / [place] Tel , Service support , Treatment and Re-Evaluation Narrative: On repeat evaluation patient states pain was significantly improved but is now returning. Second round of pain medication given. Lab work largely unremarkable. Urinalysis contaminated with no nitrates. CT flank reveals a 5.5 cm left UVJ stone. No ramandeep hydronephrosis. I did review the patient's prior CT scan from August 25 when she was diagnosed with diverticulitis. I do believe she had a left mid ureteral stone at that time with the same dimension. At this time patient will be treated with Percocet, ibuprofen, Zofran, Flomax. Referral to Dr. Up given as needed. Discharge Plan Triage Chief Complaint: Flank Pain ED Provider: Johanny Irene Dx/Rx/DC Orders Clinical Impression: Ureterolithiasis Instructions: ED Kidney Stone w/ Colic Prescriptions: New oxycodone-acetaminophen [Percocet] 5-325 mg tablet 1 tab PO Q6H PRN (Reason: pain) 3 Days Qty: 10 RF: 0 ondansetron 4 mg tablet,disintegrating 4 mg PO Q8H PRN (Reason: nausea and vomiting) Qty: 10 RF: 0 tamsulosin [Flomax] 0.4 mg capsule 0.4 mg PO DAILY Qty: 7 RF: 0 No Action loratadine 10 MG tablet 10 mg PO DAILY RF: 0 glimepiride 4 MG tablet 4 mg PO BID RF: 0 lansoprazole 30 MG capsule,delayed release(DR/EC) 30 mg PO DAILY RF: 0 buspirone 7.5 MG tablet 10 mg PO TID RF: 0 spironolactone 50 MG tablet 50 mg PO DAILY RF: 0 insulin glargine 100 UNITS/ML insulin pen 26 units subcut QHS RF: 0 escitalopram oxalate 10 MG tablet 20 mg PO DAILY RF: 0 zolpidem 5 MG tablet 10 mg PO QHS RF: 0 meloxicam 15 MG tablet 15 mg PO DAILY RF: 0 famotidine 20 MG tablet 20 mg PO QHS RF: 0 promethazine 25 MG tablet 25 mg PO Q8H PRN (Reason: Nausea) RF: 0 metoprolol succinate 50 mg Tablet Extended Release 24 Hr 150 mg PO DAILY RF: 0 ondansetron 4 mg tablet,disintegrating 4 mg PO Q8H PRN PRN (Reason: Nausea) Qty: 10 RF: 0 oxycodone-acetaminophen [Percocet] 5-325 mg tablet 1 tab PO Q6H PRN (Reason: pain) 3 Days Qty: 12 RF: 0 promethazine 25 mg tablet 25 mg PO TID PRN (Reason: nausea and vomiting) Qty: 14 RF: 0 atorvastatin 10 mg tablet 10 mg PO QHS RF: 0 Primary Care Provider: Joaquim Burks Referrals: Joaquim Burks DO [Primary Care Provider] - Brayden Up MD [STAFF PHYSICIAN] - 1 Week if not improving Disposition Disposition: Home, Self Care
[2021-09-22] MEDS: 0.9% Normal Saline 1,000 ML 250 ML IV (03:30)
[2021-09-22] MEDS: Morphine 4 MG/ML Syringe IV ×2 (03:34→05:05)
[2021-09-22] MEDS: Ketorolac 15 MG/ML Vial IV ×2 (03:34→05:05)
[2021-09-22] MEDS: Ondansetron 4 MG/2 ML Vial IV (03:34)
[2021-09-22 03:45] LABS: Absolute Lymphocyte Count 3.25 X10^3/uL (0.83-4.51); Absolute Neutrophil Count 3.4 X10^3/uL (2.0-7.7); Basophil% 1.3 % (0-1); Eosinophil# 0.23 X10^3/uL; Eosinophils% 2.9 % (0-5); Hematocrit 47.7 % (37-47); Hemoglobin 16.1 g/dL (12.0-15.0); Lymphocyte # 3.25 X10^3/ul (0.83-4.51); Lymphocyte % 41.6 % (19-41); Mean Corp Hgb Conc 33.8 g/dL (32-36); Mean Corpuscular Hgb 29.9 pg (27.0-32.0); Mean Corpuscular Volume 88.7 fL (81-99); Mean Platelet Vol. 11.4 fl (6.2-12.0); Monocyte% 10.2 % (0-10); NRBC Flagged by Analyzer 0 % (0-5); Neutrophil # 3.39 X10^3/uL (2.7-7.7); Neutrophil % 43.4 % (47-70); Platelet Count 253 K/mm3 (150-450); RBC Distribution Width CV 13.1 % (11.6-14.6); RBC Distribution Width SD 42.2 fl (35.1-43.9); Red Blood Count 5.38 M/mm3 (4.2-5.4); White Blood Count 7.8 K/mm3 (4.4-11.0)
[2021-09-22 03:55] LABS: Color, Urine Yellow (Yellow); Glucose, Dipstick Normal (Normal); Ketone-Dipstick 5 mg/dl (Negative); Leukocyte Esterase-Dipstick 500 /ul (Negative); Nitrite-Dipstick Negative (Negative); Occult Blood-Urine 50 /ul (Negative); Protein-Dipstick 30 mg/dl (Negative); Specific Gravity, Urine 1.025 (1.002-1.030); Urine Bilirubin Dipstick Negative (Negative); Urine Clarity Clear (Clear); Urine Urobilinogen Normal (Normal)
[2021-09-22 04:02] LABS: Bacteria 2+ /hpf (None Seen); Mucous, Urine 2+ /hpf (<or=2+); Red Blood Cells-Urine 0-5 SEEN /hpf (0-5); Squamous Epithelial Cells - UA 5-10 SEEN /hpf (5-10); White Blood Cells 10-25 SEEN /hpf (0-5)
[2021-09-22 04:30] LABS: Anion Gap 8 (5-15); BUN 19 mg/dL (7-18); BUN/Creat Ratio 25.5 RATIO (10-20); Calcium,Total 8.3 mg/dL (8.5-10.1); Chloride 105 mmol/L (98-107); Creatinine, Serum 0.75 mg/dL (0.55-1.02); EST Glomerular Filtration Rate 85 mL/min (>60); Est Glom Filt Rate - Afr Amer 103 mL/min (>60); Estimated Creatinine Clearance 75.37 ml/min; Glucose 183 mg/dL (74-106); Potassium 3.4 mmol/L (3.5-5.1); Sodium Level 138 mmol/L (136-145)
[2021-09-22] MEDS: Tamsulosin HCl 0.4 MG Capsule PO (05:06)
[2021-09-22 05:10] VITALS: BP 143/83; PULSE 74; RESP 17; TEMP 36.8; O2SAT 97
[2021-09-22 05:13] VITALS: RESP 17
[2021-09-22 05:55] VITALS: BP 124/79; PULSE 74; RESP 17; O2SAT 99
== END 2021-09-22 05:56 | disposition home or self-care (01) ==
PROVIDERS: Emergency Provider Emergency Medicine; PCP Student in an Organized Health Care Education/Training Program; Visit Provider Emergency Medicine
DX: N20.1 Calculus of ureter (principal); J44.9 Chronic obstructive pulmonary disease, unspecified; E66.01 Morbid (severe) obesity due to excess calories; E11.9 Type 2 diabetes mellitus without complications; Z79.4 Long term (current) use of insulin; I10 Essential (primary) hypertension; E78.5 Hyperlipidemia, unspecified; Z87.891 Personal history of nicotine dependence; Z87.442 Personal history of urinary calculi; Z87.19 Personal history of other diseases of the digestive system; F32.A Depression, unspecified; F41.9 Anxiety disorder, unspecified; K21.9 Gastro-esophageal reflux disease without esophagitis; G47.33 Obstructive sleep apnea (adult) (pediatric); Z79.899 Other long term (current) drug therapy
CPT/HCPCS: 74176; 80048; 81001; 85025; 96361; 96374; 96375; 96376; 99285; J7030; A4216; J2405

== ENCOUNTER 2021-11-10 12:28 | Emergency (ER) | payer MEDICARE, SELFPAY ==
[2021-11-10 12:30] VITALS: BP 194/116; PULSE 84; RESP 20; TEMP 37; O2SAT 98; BMI 41.1
--- NOTE | 2021-11-10 12:49 | EKG12_ITS ---
Test Reason : CP Blood Pressure : / mmHG Vent. Rate : 084 BPM Atrial Rate : 084 BPM P-R Int : 164 ms QRS Dur : 088 ms QT Int : 388 ms P-R-T Axes : 035 -11 050 degrees QTc Int : 458 ms Normal sinus rhythm Inferior infarct , age undetermined Abnormal ECG Confirmed by JOHANN LEPE, HAZEL ([id number]), deputy editor in chief JASPAL TRUJILLO ([id number]) on 11/13/2021 10:41:50 A M Referred By: JAKE Confirmed By:GILL WILLS MD
--- NOTE | 2021-11-10 12:51 | EDS_ITS ---
HPI History of Present Illness Chief Complaint: Chest Pain Informant: patient Onset/Context/Timing Onset: Days Narrative Narrative: Patient presents with 5-day history of left-sided chest pain and left arm heaviness and soreness. This morning she woke up and felt like her lips were swollen. She is a history of angioedema and previously had a tracheostomy. She denies any new foods or medications. [facility] Medical History Acute pancreatitis Acute respiratory failure Angioedema Anxiety and depression C. difficile diarrhea COPD (chronic obstructive pulmonary disease) Depression Difficulty breathing Former tobacco use GERD (gastroesophageal reflux disease) Hiatal hernia Hyperglycemia Hyperlipidemia Hypertension Morbid obesity Neck pain SHARMIN (obstructive sleep apnea) Tracheostomy dependence Type II diabetes mellitus Upper airway obstruction Home Medications loratadine 10 mg PO DAILY 12/16/16 [History Last Taken 08/27/19] glimepiride 4 mg PO BID 05/25/17 [History Last Taken 08/27/19] lansoprazole 30 mg PO DAILY 07/06/18 [History Last Taken 04/07/20 08:00] buspirone 10 mg PO TID 02/20/19 [History Last Taken 08/27/19] spironolactone 50 mg PO DAILY 02/20/19 [History Last Taken 08/27/19] insulin glargine 26 units SUBCUT QHS 07/10/19 [History Last Taken 08/26/19] escitalopram oxalate 20 mg PO DAILY 11/08/19 [History Last Taken Unknown] zolpidem 10 mg PO QHS 03/15/20 [History Last Taken Unknown] famotidine 20 mg PO QHS 09/21/20 [History Last Taken Unknown] meloxicam 15 mg PO DAILY 09/21/20 [History Last Taken Unknown] promethazine 25 mg PO Q8H PRN 09/21/20 [History Last Taken Unknown] metoprolol succinate 150 mg PO DAILY 01/13/21 [History Last Taken Unknown] ondansetron 4 mg PO Q8H PRN PRN #10 tab 04/13/21 [Rx Last Taken Unknown] promethazine 25 mg PO TID PRN #14 tab 08/25/21 [Rx Last Taken Unknown] atorvastatin 10 mg PO QHS 09/22/21 [History Last Taken Unknown] ondansetron 4 mg PO Q8H PRN #10 tab 09/22/21 [Rx Last Taken Unknown] diphenhydramine HCl [Allergy (diphenhydramine)] 50 mg PO TID PRN #20 tab 10/25 01/15 [Rx Last Taken Unknown] insulin lispro [Humalog KwikPen Insulin] SUBCUT 11/10/21 [History Last Taken Unknown] ondansetron 4 mg PO Q8H PRN #10 tab 11/10/21 [Rx Last Taken Unknown] prednisone 40 mg PO DAILY #10 tab 11/10/21 [Rx Last Taken Unknown] Allergy/AdvReac Type Severity Reaction Status Date / Time bupropion [From Wellbutrin] Allergy Angioedema Verified 09/22/21 03:14 lisinopril Allergy Angioedema Verified 09/22/21 03:14 sulfamethoxazole Allergy Rash Verified 09/22/21 03:14 [From Bactrim] trimethoprim [From Bactrim] Allergy Rash Verified 09/22/21 03:14 aspirin AdvReac Nausea/Vom/ Verified 09/22/21 03:14 Diarrhea hydrocodone [From Vicodin] AdvReac Nausea/Vom/ Verified 09/22/21 03:14 Diarrhea rosuvastatin [From Crestor] AdvReac PT UNSURE Verified 09/22/21 03:14 OF REACTION Surgical History s/p bladder sling S/P laparoscopic cholecystectomy s/p novasure S/P tubal ligation Status post tracheostomy Social History Smoking Status: Former smoker substance use type: does not use ROS ROS ED Constitutional Constitutional ED: Denies chills or fever(s) Eyes Eyes: Denies change in vision ENT ENT ED: Reports other Details: Lip swelling ; Denies sore throat Cardiovascular Cardiovascular: Reports chest pain Respiratory/Chest Respiratory/Chest: Denies cough or dyspnea Gastrointestinal Gastrointestinal: Denies abdominal pain, nausea or vomiting Genitourinary Genitourinary ED: Denies dysuria Musculoskeletal Musculoskeletal: Denies back pain or neck pain Integumentary Denies rash Neurologic Neurologic: Denies headache(s) or weakness Allergic/Immunologic Allergic/Immunologic ED: Denies urticaria EXAM Physical Exam Const Vital Signs: 11/10/21 12:30 11/10/21 12:36 11/10/21 14:50 Temperature 98.6 F Temperature Source Oral Pulse Rate 84 83 Respiratory Rate 20 H 14 Respiratory Effort Normal Blood Pressure 194/116 H 161/89 H Blood Pressure Mean 142 113 Pulse Ox 98 95 Oxygen Delivery Method Room Air Room Air 11/10/21 15:42 11/10/21 16:06 Temperature Temperature Source Pulse Rate 97 83 Respiratory Rate 15 16 Respiratory Effort Blood Pressure 169/97 H 157/100 H Blood Pressure Mean 121 119 Pulse Ox 98 95 Oxygen Delivery Method Room Air Room Air Positive well nourished and well developed General Appearance ED: well developed HEENT Reports moist mucous membranes HEENT Narrative: No obvious lip or tongue edema. Speaking with strong voice and tolerating secretions well. Eyes PERRL Neck supple Chest Wall inspection of chest normal and palpation of chest normal Resp normal respiratory effort and clear to auscultation bilaterally Cardio regular rate and regular rhythm GI non-tender Palpation: soft Extremity normal to inspection Neuro oriented x3 Sensorium / Orientation: alert Skin no rashes or lesions noted MDM MDM MDM Narrative Medical decision making narrative: Patient given IV Solu-Medrol and Benadryl on arrival. EKG, chest x-ray, lab work obtained. Lab Data Attestation: I reviewed the patient's lab results. Labs: Laboratory Results - last 24 hr 11/10/21 11/10/21 11/10/21 12:50 12:50 15:10 WBC 5.7 RBC 4.86 Hgb 14.7 Hct 42.0 MCV 86.4 MCH 30.2 MCHC 35.0 RDW Std Deviation 39.7 RDW Coeff of Cecil 12.6 Plt Count 197 MPV 11.1 Immature Gran % (Auto) 0.500 Neut % (Auto) 61.5 Lymph % (Auto) 25.8 [place] % (Auto) 7.0 Eos % (Auto) 4.2 Baso % (Auto) 1.0 Absolute Neuts (auto) 3.5 Absolute Lymphs (auto) 1.48 Nucleated RBC % 0 Sodium 133 L Potassium 3.9 Chloride 101 Carbon Dioxide 23.0 Anion Gap 9 BUN 15 Creatinine 0.90 Estim Creat Clear Calc 62.81 Est GFR (MDRD) Af Amer 83 Est GFR (MDRD) Non-Af 68 BUN/Creatinine Ratio 16.6 Glucose 218 H Calcium 9.2 Troponin I High Sens < 3 L < 3 L Radiography Chest X-Ray - ED: 1 View, Read by ED Physician and Chronic Changes Diagnostic Testing: Clinical Impression(s) from Imaging Studies Chest X-Ray 11/10/21 13:00 IMPRESSION: Normal x-ray examination of the chest. Electronically Signed: Kodak David MD at 13:17 EDT , EKG Initial EKG: Attestation: I personally reviewed and interpreted this EKG as follows: Interpretation: Sinus Rhythm (Sinus 84 with no acute ischemia.) Treatment and Re-Evaluation Narrative: Repeat evaluation patient was complaining of some nausea. She was given Zofran. EKG reveals no acute ischemia. Chest x-ray per my interpretation reveals chronic changes only. No significant tracheal narrowing or abnormalities appreciated. Lab work unremarkable with troponin less than 3 x 2. Patient has had no evidence of oral or airway edema throughout her ED stay. She will be treated with Benadryl, steroid, Zofran at home. Return instructions provided. Discharge Plan Triage Chief Complaint: Chest Pain ED Provider: Johanny Irene Dx/Rx/DC Orders Clinical Impression: Chest pain Instructions: ED Chest Pain, Noncardiac Prescriptions: New diphenhydramine HCl [Allergy (diphenhydramine)] 25 mg tablet 50 mg PO TID PRN (Reason: allergic reaction) Qty: 20 RF: 0 ondansetron 4 mg tablet,disintegrating 4 mg PO Q8H PRN (Reason: nausea and vomiting) Qty: 10 RF: 0 prednisone 20 mg tablet 40 mg PO DAILY Qty: 10 RF: 0 No Action loratadine 10 MG tablet 10 mg PO DAILY RF: 0 glimepiride 4 MG tablet 4 mg PO BID RF: 0 lansoprazole 30 MG capsule,delayed release(DR/EC) 30 mg PO DAILY RF: 0 buspirone 7.5 MG tablet 10 mg PO TID RF: 0 spironolactone 50 MG tablet 50 mg PO DAILY RF: 0 insulin glargine 100 UNITS/ML insulin pen 26 units subcut QHS RF: 0 escitalopram oxalate 10 MG tablet 20 mg PO DAILY RF: 0 zolpidem 5 MG tablet 10 mg PO QHS RF: 0 meloxicam 15 MG tablet 15 mg PO DAILY RF: 0 famotidine 20 MG tablet 20 mg PO QHS RF: 0 promethazine 25 MG tablet 25 mg PO Q8H PRN (Reason: Nausea) RF: 0 metoprolol succinate 50 mg Tablet Extended Release 24 Hr 150 mg PO DAILY RF: 0 ondansetron 4 mg tablet,disintegrating 4 mg PO Q8H PRN PRN (Reason: Nausea) Qty: 10 RF: 0 oxycodone-acetaminophen [Percocet] 5-325 mg tablet 1 tab PO Q6H PRN (Reason: pain) 3 Days Qty: 12 RF: 0 promethazine 25 mg tablet 25 mg PO TID PRN (Reason: nausea and vomiting) Qty: 14 RF: 0 atorvastatin 10 mg tablet 10 mg PO QHS RF: 0 oxycodone-acetaminophen [Percocet] 5-325 mg tablet 1 tab PO Q6H PRN (Reason: pain) 3 Days Qty: 10 RF: 0 ondansetron 4 mg tablet,disintegrating 4 mg PO Q8H PRN (Reason: nausea and vomiting) Qty: 10 RF: 0 tamsulosin [Flomax] 0.4 mg capsule 0.4 mg PO DAILY Qty: 7 RF: 0 Primary Care Provider: Joaquim Burks Referrals: Joaquim Burks DO [Primary Care Provider] - 1 Week Disposition Disposition: Home, Self Care
--- NOTE | 2021-11-10 13:00 | RAD_ITS ---
STUDY: X-RAY CHEST REASON FOR EXAM: Female, 56 years old. Cp TECHNIQUE: Single AP portable view of the chest. COMPARISON: Comparison is made with prior study dated 05/25/2021. FINDINGS: EKG electrodes are seen. The lungs are clear and expanded. There is no demonstrated pleural abnormality. Normal size heart. Normal mediastinum and christy. Normal visualized pulmonary arteries. Normal visualized aortic arch and descending thoracic aorta. Normal visualized thoracic spine. Normal visualized ribs, clavicles, and shoulders. There is no demonstrated abnormality of the visualized soft tissue structures of the upper abdomen. RAD/Chest 1 View (Portable) IMPRESSION: Normal x-ray examination of the chest. Electronically Signed: Kodak David MD at 13:17 EDT ,
[2021-11-10] MEDS: DiphenhydrAMINE 50 MG/ML Syringe 25 MG IV (13:01)
[2021-11-10] MEDS: MethylPREDNISolone 125 MG/2 ML Vial IV (13:01)
[2021-11-10 13:04] LABS: Absolute Lymphocyte Count 1.48 X10^3/uL (0.83-4.51); Absolute Neutrophil Count 3.5 X10^3/uL (2.0-7.7); Basophil# 0.06 X10^3/uL; Eosinophil# 0.24 X10^3/uL; Eosinophils% 4.2 % (0-5); Hemoglobin 14.7 g/dL (12.0-15.0); Lymphocyte # 1.48 X10^3/ul (0.83-4.51); Lymphocyte % 25.8 % (19-41); Mean Corpuscular Hgb 30.2 pg (27.0-32.0); Mean Corpuscular Volume 86.4 fL (81-99); Mean Platelet Vol. 11.1 fl (6.2-12.0); NRBC Flagged by Analyzer 0 % (0-5); Neutrophil # 3.53 X10^3/uL (2.7-7.7); Neutrophil % 61.5 % (47-70); Platelet Count 197 K/mm3 (150-450); RBC Distribution Width CV 12.6 % (11.6-14.6); RBC Distribution Width SD 39.7 fl (35.1-43.9); Red Blood Count 4.86 M/mm3 (4.2-5.4); White Blood Count 5.7 K/mm3 (4.4-11.0)
[2021-11-10 13:22] LABS: Anion Gap 9 (5-15); BUN 15 mg/dL (7-18); BUN/Creat Ratio 16.6 RATIO (10-20); Calcium,Total 9.2 mg/dL (8.5-10.1); Chloride 101 mmol/L (98-107); EST Glomerular Filtration Rate 68 mL/min (>60); Est Glom Filt Rate - Afr Amer 83 mL/min (>60); Estimated Creatinine Clearance 62.81 ml/min; Glucose 218 mg/dL (74-106); Potassium 3.9 mmol/L (3.5-5.1); Sodium Level 133 mmol/L (136-145); Troponin-I HS (w/2H Reflex) < 3 pg/mL (3.0-54.0)
[2021-11-10 14:50] VITALS: BP 161/89; PULSE 83; RESP 14; O2SAT 95
[2021-11-10 15:00] LABS: Reflex Troponin-HS? (from REC) Y
[2021-11-10 15:40] LABS: Troponin-I HS < 3 pg/mL (3.0-54.0)
[2021-11-10 15:42] VITALS: BP 169/97; PULSE 97; RESP 15; O2SAT 98
[2021-11-10] MEDS: Ondansetron 4 MG/2 ML Vial IV (15:46)
[2021-11-10 16:06] VITALS: BP 157/100; PULSE 83; RESP 16; O2SAT 95
== END 2021-11-10 16:28 | disposition home or self-care (01) ==
PROVIDERS: Emergency Provider Emergency Medicine; PCP Student in an Organized Health Care Education/Training Program; Visit Provider Emergency Medicine
DX: R07.9 Chest pain, unspecified (principal); J44.9 Chronic obstructive pulmonary disease, unspecified; E66.01 Morbid (severe) obesity due to excess calories; Z68.41 Body mass index [BMI] 40.0-44.9, adult; E11.9 Type 2 diabetes mellitus without complications; Z79.4 Long term (current) use of insulin; R11.0 Nausea; Z87.891 Personal history of nicotine dependence; E78.5 Hyperlipidemia, unspecified; I10 Essential (primary) hypertension; Z87.19 Personal history of other diseases of the digestive system; F41.9 Anxiety disorder, unspecified; F32.A Depression, unspecified; K21.9 Gastro-esophageal reflux disease without esophagitis; G47.33 Obstructive sleep apnea (adult) (pediatric); Z79.899 Other long term (current) drug therapy
CPT/HCPCS: 71045; 80048; 84484; 85025; 93005; 96374; 96375; 99283; A4216; J2405

== ENCOUNTER 2021-11-23 16:46 | Emergency (ER) | payer MEDICARE, MEDICAID, SELFPAY ==
[2021-11-23 16:48] VITALS: BP 167/87; PULSE 85; RESP 18; TEMP 36.4; O2SAT 95; BMI 43.2
--- NOTE | 2021-11-23 17:15 | EKG12_ITS ---
Test Reason : Blood Pressure : / mmHG Vent. Rate : 084 BPM Atrial Rate : 084 BPM P-R Int : 156 ms QRS Dur : 086 ms QT Int : 380 ms P-R-T Axes : 044 -12 062 degrees QTc Int : 449 ms Normal sinus rhythm Inferior infarct , age undetermined Abnormal ECG Confirmed by TIGRE LEPE, EDUARDO ([id number]), editor news JORGE CASTRO ([id number]) on 11/24/2021 1:32:03 PM Referred By: KAREEM Confirmed By:EDUARDO LANDEROS MD
--- NOTE | 2021-11-23 17:17 | EDS_ITS ---
HPI History of Present Illness Chief Complaint: Chest Pain Informant: patient Onset/Context/Timing Onset: Days (5) Activity at onset: gradual and onset Timing: Continuous and Waxes and wanes Quality: Positive for Aching Location: Left Chest Current Severity: Moderate Maximum Severity: Moderate Worsened By: - (Worse when she is getting up out of bed in the morning, and in the evening when she is sitting on the couch watching TV); Not Worsened By Breathing Relieved By: Nothing Associated Symptoms: Positive for - (LUE discomfort/heaviness); Negative for Nausea, Vomiting, Diaphoresis, Dyspnea, Cough, Fever, Lightheadedness and Palpitations Narrative Narrative: Patient states she has been having chest pain for the past 5 days, he has never gone away, but waxes and wanes, worse in the mornings and in the evenings. Left upper extremity discomfort associated with it, heaviness. She states before that she did not have any chest pain, however it seems in her chart that she was seen here 2 weeks ago for the exact same complaint, 5 days of chest discomfort. She states she does not have a history of heart disease that she knows of, no history of a heart cath. She also states that her kidneys hurt worse on the left, that has been the case since August. She was diagnosed with a kidney stone, she never followed up with urology. She states she has urinary urgency and if she does not make it to the bathroom fast enough, she soils her self. Denies hematuria. Denies fevers, chills, she does have some nausea often, but no vomiting or other abdominal pain. PE Risk Factors: Negative for Recent Travel/Surgery, Recent Immobilization, Prior DVT or PE, Cancer and OCP + Smoking + >/=35 PFSH [facility] Medical History Acute pancreatitis Acute respiratory failure Angioedema Anxiety and depression C. difficile diarrhea COPD (chronic obstructive pulmonary disease) Depression Difficulty breathing Former tobacco use GERD (gastroesophageal reflux disease) Hiatal hernia Hyperglycemia Hyperlipidemia Hypertension Morbid obesity Neck pain SHARMIN (obstructive sleep apnea) Tracheostomy dependence Type II diabetes mellitus Upper airway obstruction Home Medications loratadine 10 mg PO DAILY 12/16/16 [History Last Taken 08/27/19] glimepiride 4 mg PO BID 05/25/17 [History Last Taken 08/27/19] lansoprazole 30 mg PO DAILY 07/06/18 [History Last Taken 04/07/20 08:00] buspirone 10 mg PO TID 02/20/19 [History Last Taken 08/27/19] spironolactone 50 mg PO DAILY 02/20/19 [History Last Taken 08/27/19] insulin glargine 26 units SUBCUT QHS 07/10/19 [History Last Taken 08/26/19] escitalopram oxalate 20 mg PO DAILY 11/08/19 [History Last Taken Unknown] zolpidem 10 mg PO QHS 03/15/20 [History Last Taken Unknown] famotidine 20 mg PO QHS 09/21/20 [History Last Taken Unknown] meloxicam 15 mg PO DAILY 09/21/20 [History Last Taken Unknown] promethazine 25 mg PO Q8H PRN 09/21/20 [History Last Taken Unknown] metoprolol succinate 150 mg PO DAILY 01/13/21 [History Last Taken Unknown] ondansetron 4 mg PO Q8H PRN PRN #10 tab 04/13/21 [Rx Last Taken Unknown] promethazine 25 mg PO TID PRN #14 tab 08/25/21 [Rx Last Taken Unknown] atorvastatin 10 mg PO QHS 09/22/21 [History Last Taken Unknown] ondansetron 4 mg PO Q8H PRN #10 tab 09/22/21 [Rx Last Taken Unknown] diphenhydramine HCl [Allergy (diphenhydramine)] 50 mg PO TID PRN #20 tab 11/10/21 [Rx Last Taken Unknown] insulin lispro [Humalog KwikPen Insulin] SUBCUT 11/10/21 [History Last Taken Unknown] ondansetron 4 mg PO Q8H PRN #10 tab 11/10/21 [Rx Last Taken Unknown] prednisone 40 mg PO DAILY #10 tab 11/10/21 [Rx Last Taken Unknown] Allergy/AdvReac Type Severity Reaction Status Date / Time bupropion [From Wellbutrin] Allergy Angioedema Verified 11/23/21 16:48 lisinopril Allergy Angioedema Verified 11/23/21 16:48 sulfamethoxazole Allergy Rash Verified 11/23/21 16:48 [From Bactrim] trimethoprim [From Bactrim] Allergy Rash Verified 11/23/21 16:48 aspirin AdvReac Nausea/Vom/ Verified 11/23/21 16:48 Diarrhea hydrocodone [From Vicodin] AdvReac Nausea/Vom/ Verified 11/23/21 16:48 Diarrhea rosuvastatin [From Crestor] AdvReac PT UNSURE Verified 11/23/21 16:48 OF REACTION Surgical History s/p bladder sling S/P laparoscopic cholecystectomy s/p novasure S/P tubal ligation Status post tracheostomy Social History Smoking Status: Former smoker substance use type: does not use ROS ROS ED Constitutional Constitutional ED: Denies chills or fever(s) Eyes Eyes: Denies change in vision or diplopia ENT ENT ED: Denies rhinorrhea or sore throat Cardiovascular Cardiovascular: Reports chest pain; Denies palpitations or pedal edema Respiratory/Chest Respiratory/Chest: Denies cough or dyspnea Gastrointestinal Gastrointestinal: Denies abdominal pain, diarrhea, nausea or vomiting Genitourinary Genitourinary ED: Reports as per HPI and urinary urgency; Denies dysuria or hematuria Musculoskeletal Musculoskeletal: Reports back pain and extremity pain; Denies neck pain Integumentary Denies abscess or rash Neurologic Neurologic: Denies headache(s), paresthesias or weakness Psychiatric Psychiatric: Denies anxiety or suicidal thoughts EXAM Physical Exam Const Vital Signs: 11/23/21 16:48 11/23/21 17:22 11/23/21 19:30 Temperature 97.6 F L Temperature Source Temporal Pulse Rate 85 82 Respiratory Rate 18 Respiratory Effort Normal Non-Labored Respiratory Pattern Normal Blood Pressure 167/87 H 179/100 H Blood Pressure Mean 113 126 Pulse Ox 95 Oxygen Delivery Method Room Air 11/23/21 19:49 Temperature Temperature Source Pulse Rate 97 Respiratory Rate Respiratory Effort Respiratory Pattern Blood Pressure 149/85 H Blood Pressure Mean 106 Pulse Ox Oxygen Delivery Method Positive well nourished, well developed and obese General Appearance ED: well developed and NAD Nutritional Appearance: obese HEENT Reports moist mucous membranes normocephalic and atraumatic Eyes PERRL and EOMs intact bilaterally Neck full ROM and supple Resp normal respiratory effort and clear to auscultation bilaterally Cardio regular rate, regular rhythm and no murmurs GI non-tender and non-distended Auscultation: normoactive bowel sounds Palpation: soft Back/Spine General Back: CVA tenderness left and other FROM Extremity normal to inspection and no calf tenderness General Extremety ED: Negative for edema, pulses abnormal or tenderness General Extremity: Negative for edema or pulses abnormal Neuro oriented x3, CN's II-XII intact bilaterally and no sensory deficits noted Sensorium / Orientation: awake and alert Motor Exam: strength 5/5 throughout Skin no rashes or lesions noted and no wounds Heart Score History: Moderately Suspicious ECG: Normal Age: >45 - <65 years Risk Factors: >/= 3 Risk Factors or History of CAD Troponin: </= Normal Limit Score: 4 MDM MDM MDM Narrative Medical decision making narrative: A week ago patient had basic labs are unremarkable so I do not think we need to repeat those since she has not had any other illness or bleeding. Her troponin is negative, she has had 5 days of constant discomfort so I do not think we need another measurement. Urine shows no infection just glucose. Her blood sugar is 264. She states it has been running in the 3 and 400s so that is relatively good. 1 view chest x-ray my interpretation negative for nothing acute. After GI cocktail for what appears to not be unstable angina, she is having no difference in her discomfort but her blood pressure renata from the 160s now in the 170-180 range. Therefore she was given hydralazine 20 mg IV and observed. Her blood pressure came down to the 140s but on the next reading it was in the 160s. Despite this, she felt awful from it. She states her hands felt swollen although objectively I did not appreciate it, she felt short of breath, and she was afraid she was having an allergic reaction. Her pulse remained in the 70s, she did not develop a rash or flushing, and other than her blood pressure the vital signs remained normal. She did not become hypoxic, she wanted oxygen but with her COPD and pulse ox of 97%, I told her this was not in her best interest. I ordered some IV fluids, she requested discharge home so she could go home and rest. As I discussed with the patient, I was not writing her off, I do not think she is having anaphylactic reaction or anything I think she is having undesired side effects from the medication which obviously I would not repeat, I did look for an echocardiogram before I ordered it and she did not have a record of 1 here and I saw no reason not to give it in order to help get her blood pressure down. I advised close outpatient follow-up. Lab Data Attestation: I reviewed the patient's lab results. Labs: Laboratory Results - last 24 hr 11/23/21 11/23/21 11/23/21 17:20 17:26 18:00 Troponin I High Sens < 3 L Urine Color Yellow Urine Clarity Clear Urine pH 6.0 Ur Specific [place] 1.020 Urine Protein 30 H Urine Glucose (UA) 250 H Urine Ketones 5 H Urine Occult Blood 10 H Urine Nitrite Negative Urine Bilirubin Negative Urine Urobilinogen 1 H Ur Leukocyte Esterase Negative Urine RBC 0 SEEN Urine WBC 0-5 SEEN Ur Squamous Epith Cells 0-5 SEEN Urine Bacteria 0 SEEN Urine Mucus 0 SEEN POC Glucose 264 H Radiography Diagnostic Testing: Clinical Impression(s) from Imaging Studies Chest X-Ray 11/23/21 17:38 IMPRESSION: There are no acute findings. Electronically Signed: Vincent Best MD at 17:51 EDT Reading Location ID and State: [facility] / [place] , Service support , Rhythm Strip Rhythm Strip: Sinus Rhythm Rate: 85 Ectopy: None EKG Initial EKG: Attestation: I personally reviewed and interpreted this EKG as follows: Interpretation: Sinus Rhythm and No Acute Injury Pattern Prior EKG tracings: available for review Prior: Unchanged Discharge Plan Triage Chief Complaint: Chest Pain Other Complaint: Flank Pain Upper Extremity Injury ED Provider: Ghanshyam Steen Dx/Rx/DC Orders Clinical Impression: Chest pain, Accelerated hypertension Instructions: Hypertension Dc, ED Chest Pain, Noncardiac Prescriptions: No Action loratadine 10 MG tablet 10 mg PO DAILY RF: 0 glimepiride 4 MG tablet 4 mg PO BID RF: 0 lansoprazole 30 MG capsule,delayed release(DR/EC) 30 mg PO DAILY RF: 0 buspirone 7.5 MG tablet 10 mg PO TID RF: 0 spironolactone 50 MG tablet 50 mg PO DAILY RF: 0 insulin glargine 100 UNITS/ML insulin pen 26 units subcut QHS RF: 0 escitalopram oxalate 10 MG tablet 20 mg PO DAILY RF: 0 zolpidem 5 MG tablet 10 mg PO QHS RF: 0 meloxicam 15 MG tablet 15 mg PO DAILY RF: 0 famotidine 20 MG tablet 20 mg PO QHS RF: 0 promethazine 25 MG tablet 25 mg PO Q8H PRN (Reason: Nausea) RF: 0 metoprolol succinate 50 mg Tablet Extended Release 24 Hr 150 mg PO DAILY RF: 0 ondansetron 4 mg tablet,disintegrating 4 mg PO Q8H PRN PRN (Reason: Nausea) Qty: 10 RF: 0 promethazine 25 mg tablet 25 mg PO TID PRN (Reason: nausea and vomiting) Qty: 14 RF: 0 atorvastatin 10 mg tablet 10 mg PO QHS RF: 0 ondansetron 4 mg tablet,disintegrating 4 mg PO Q8H PRN (Reason: nausea and vomiting) Qty: 10 RF: 0 insulin lispro [Humalog KwikPen Insulin] 100 unit/mL insulin pen SUBCUT RF: 0 diphenhydramine HCl [Allergy (diphenhydramine)] 25 mg tablet 50 mg PO TID PRN (Reason: allergic reaction) Qty: 20 RF: 0 ondansetron 4 mg tablet,disintegrating 4 mg PO Q8H PRN (Reason: nausea and vomiting) Qty: 10 RF: 0 prednisone 20 mg tablet 40 mg PO DAILY Qty: 10 RF: 0 Primary Care Provider: Joaquim Burks Referrals: Joaquim Burks DO [Primary Care Provider] - 1-2 Days if not improving Activity Restrictions/Additional Instructions: You were given a dose of hydralazine to help with your blood pressure in the short-term; it dilates veins and arteries, which is how it decreases blood pressure, and it sometimes can give patients hand and feet swelling and shortness of breath; in your case, this should be a temporary uncomfortable affect that should wear off with the medication and IV fluids often help with this. No evidence of a dangerous allergy here in the emergency department, rather it is a side effect that unfortunately you developed that was not predictable. Disposition Disposition: Home, Self Care
[2021-11-23 17:35] LABS: Bedside Glucose 264 mg/dL (74-106)
--- NOTE | 2021-11-23 17:38 | RAD_ITS ---
STUDY: X-RAY CHEST REASON FOR EXAM: Female, 56 years old. CHEST PAIN chest pain TECHNIQUE: XR Chest 1 View COMPARISON: None FINDINGS: There is no demonstrated pleural abnormality. Normal size heart. Normal mediastinum and christy. Normal visualized pulmonary arteries. Normal visualized aortic arch and descending thoracic aorta. Normal visualized thoracic spine. Normal visualized ribs, clavicles, and shoulders. There is no demonstrated abnormality of the visualized soft tissue structures of the upper abdomen. RAD/Chest 1 View (Portable) IMPRESSION: There are no acute findings. Electronically Signed: Vincent Best MD at 17:51 EDT ,
[2021-11-23] MEDS: Mag Hydrox/Al Hydrox/Simeth 30 ML UDC PO (17:46)
[2021-11-23 17:53] LABS: Troponin-I HS (w/2H Reflex) < 3 pg/mL (3.0-54.0)
[2021-11-23 18:07] LABS: Bacteria 0 SEEN /hpf (None Seen); Mucous, Urine 0 SEEN /hpf (<or=2+); Red Blood Cells-Urine 0 SEEN /hpf (0-5)
[2021-11-23 18:08] LABS: Color, Urine Yellow (Yellow); Glucose, Dipstick 250 mg/dl (Normal); Ketone-Dipstick 5 mg/dl (Negative); Leukocyte Esterase-Dipstick Negative /ul (Negative); Nitrite-Dipstick Negative (Negative); Occult Blood-Urine 10 /ul (Negative); Protein-Dipstick 30 mg/dl (Negative); Urine Bilirubin Dipstick Negative (Negative); Urine Clarity Clear (Clear); Urine Urobilinogen 1 mg/dl (Normal)
[2021-11-23 18:15] LABS: Squamous Epithelial Cells - UA 0-5 SEEN /hpf (5-10)
[2021-11-23 18:16] LABS: White Blood Cells 0-5 SEEN /hpf (0-5)
[2021-11-23] MEDS: hydrALAZINE 20 MG/ML Vial IV (19:28)
[2021-11-23 19:30] VITALS: BP 179/100; PULSE 82
[2021-11-23 19:49] VITALS: BP 149/85; PULSE 97
[2021-11-23 20:53] VITALS: BP 160/87
== END 2021-11-23 20:53 | disposition home or self-care (01) ==
PROVIDERS: Emergency Provider Emergency Medicine; PCP Student in an Organized Health Care Education/Training Program; Visit Provider Emergency Medicine
DX: R07.89 Other chest pain (principal); J44.9 Chronic obstructive pulmonary disease, unspecified; Z68.41 Body mass index [BMI] 40.0-44.9, adult; E11.9 Type 2 diabetes mellitus without complications; Z79.4 Long term (current) use of insulin; F41.9 Anxiety disorder, unspecified; F32.A Depression, unspecified; Z87.19 Personal history of other diseases of the digestive system; K21.9 Gastro-esophageal reflux disease without esophagitis; E78.5 Hyperlipidemia, unspecified; I10 Essential (primary) hypertension; G47.33 Obstructive sleep apnea (adult) (pediatric); Z79.899 Other long term (current) drug therapy; Z87.442 Personal history of urinary calculi; E66.9 Obesity, unspecified
CPT/HCPCS: 71045; 81001; 82962; 84484; 93005; 96361; 96374; 99284; J7030; A4216

== ENCOUNTER 2022-01-04 16:52 | Emergency (ER) | payer MEDICARE, MEDICAID, SELFPAY ==
[2022-01-04 16:53] VITALS: BP 172/104; PULSE 83; RESP 15; TEMP 37.1; O2SAT 98; BMI 41.8
--- NOTE | 2022-01-04 17:12 | EKG12_ITS ---
Test Reason : cp Blood Pressure : / mmHG Vent. Rate : 078 BPM Atrial Rate : 078 BPM P-R Int : 156 ms QRS Dur : 084 ms QT Int : 370 ms P-R-T Axes : 036 -15 042 degrees QTc Int : 421 ms Normal sinus rhythm Inferior infarct , age undetermined , cannot be excluded Abnormal ECG Confirmed by LILLIAN LEPE, JUWAN ([id number]), editor house organ JASPAL TRUJILLO ([id number]) on 01/06/2022 10:46:05 AM Referred By: Confirmed By:JUWAN SNYDER MD
--- NOTE | 2022-01-04 17:20 | EX.ED.UPPERE ---
HPI History of Present Illness Chief Complaint: Upper Extremity Injury Narrative Narrative: 56 year old female presenting with chronic left shoulder and chest pain. It has been worse for 5 days. She went to see her pcp to day and saw Heather Saldaña who sent her to the ER. Patient denies cardiac history. She has no shortness of breath, dizziness, diaphoresis. Patient denies cardiac history. No fever or chills. [facility] Medical History Acute pancreatitis Acute respiratory failure Angioedema Anxiety and depression C. difficile diarrhea COPD (chronic obstructive pulmonary disease) Depression Difficulty breathing Former tobacco use GERD (gastroesophageal reflux disease) Hiatal hernia Hyperglycemia Hyperlipidemia Hypertension Morbid obesity Neck pain SHARMIN (obstructive sleep apnea) Tracheostomy dependence Type II diabetes mellitus Upper airway obstruction Home Medications loratadine 10 mg tablet 10 mg PO DAILY allergies 12/16/16 [History Last Taken 08/27/19] glimepiride 4 mg tablet 4 mg PO BID diabetes 05/25/17 [History Last Taken 08/27/19] lansoprazole 30 mg capsule,delayed release 30 mg PO DAILY gerd 07/06/18 [History Last Taken 04/07/20 08:00] buspirone 7.5 mg tablet 10 mg PO TID mental health 02/20/19 [History Last Taken 08/27/19] spironolactone 50 mg tablet 50 mg PO DAILY water pill 02/20/19 [History Last Taken 08/27/19] insulin glargine 100 unit/mL (3 mL) subcutaneous pen 26 units subcut QHS 07/10/19 [History Last Taken 08/26/19] escitalopram oxalate 10 mg tablet 20 mg PO DAILY depression 11/08/19 [History Last Taken Unknown] zolpidem 5 mg tablet 10 mg PO QHS 03/15/20 [History Last Taken Unknown] famotidine 20 mg tablet 20 mg PO QHS 09/21/20 [History Last Taken Unknown] meloxicam 15 mg tablet 15 mg PO DAILY 09/21/20 [History Last Taken Unknown] metoprolol succinate 50 mg tablet,extended release 24 hr 150 mg PO DAILY 01/13/21 [History Last Taken Unknown] promethazine 25 mg tablet 25 mg PO TID PRN nausea and vomiting #14 tabs 08/25/21 [Rx Last Taken Unknown] atorvastatin 10 mg tablet 10 mg PO QHS 09/22/21 [History Last Taken Unknown] diphenhydramine HCl 25 mg tablet (Allergy (diphenhydramine)) 50 mg PO TID PRN allergic reaction #20 tabs 11/10/21 [Rx Last Taken Unknown] insulin lispro 100 unit/mL subcutaneous pen (Humalog KwikPen (U-100) Insulin) subcut 11/10/21 [History Last Taken Unknown] ondansetron 4 mg disintegrating tablet 4 mg PO Q8H PRN nausea and vomiting #10 tabs 11/10/21 [Rx Last Taken Unknown] oxycodone-acetaminophen 5 mg-325 mg tablet (Percocet) 1 tab PO Q6H PRN pain 3 days #10 tabs 01/04/22 [Rx Last Taken Unknown] Allergy/AdvReac Type Severity Reaction Status Date / Time bupropion [From Wellbutrin] Allergy Angioedema Verified 01/04/22 16:53 lisinopril Allergy Angioedema Verified 01/04/22 16:53 sulfamethoxazole Allergy Rash Verified 01/04/22 16:53 [From Bactrim] trimethoprim [From Bactrim] Allergy Rash Verified 01/04/22 16:53 aspirin AdvReac Nausea/Vom/ Verified 01/04/22 16:53 Diarrhea hydrocodone [From Vicodin] AdvReac Nausea/Vom/ Verified 01/04/22 16:53 Diarrhea rosuvastatin [From Crestor] AdvReac PT UNSURE Verified 01/04/22 16:53 OF REACTION Surgical History s/p bladder sling S/P laparoscopic cholecystectomy s/p novasure S/P tubal ligation Status post tracheostomy Social History Smoking Status: Former smoker substance use type: does not use ROS ROS ED Constitutional Constitutional ED: Denies chills or fever(s) Eyes Eyes: Denies change in vision ENT ENT ED: Denies ear pain, rhinorrhea or sore throat Cardiovascular Cardiovascular: Reports chest pain Respiratory/Chest Respiratory/Chest: Denies cough or dyspnea Gastrointestinal Gastrointestinal: Denies abdominal pain or constipation Genitourinary Genitourinary ED: Denies dysuria or hematuria Musculoskeletal Musculoskeletal: Reports other Details: Left shoulder pain Integumentary Denies abscess or Abrasions Neurologic Neurologic: Denies headache(s) or paresthesias Psychiatric Psychiatric: Denies anxiety or depression EXAM Physical Exam Const Vital Signs: 01/04/22 16:53 Temperature 98.7 F Temperature Source Temporal Pulse Rate 83 Respiratory Rate 15 Blood Pressure 172/104 H Blood Pressure Mean 126 Pulse Ox 98 Oxygen Delivery Method Room Air Positive well nourished and obese General Appearance ED: NAD Nutritional Appearance: obese Eyes PERRL and EOMs intact bilaterally Neck full ROM and supple Chest Wall Chest Narrative: Tenderness to palpation left upper chest wall. no brusing,crepitance. Equal symmetric breath sounds and chest wall rise. Resp normal respiratory effort and clear to auscultation bilaterally Cardio regular rate and regular rhythm GI non-tender and non-distended Extremity Extremity Narrative: TTP left anterior shoulder. pain elicited wit ROM which is full. Neuro oriented x3 Sensorium / Orientation: alert Psych mental status grossly normal Skin Lesions: no lesions Rashes: no rashes MDM MDM MDM Narrative Medical decision making narrative: 56-year-old female presenting with chronic left shoulder pain and chronic chest pain. Is been worse for 5 days straight. She went to her PCPs office today and had an evaluation and was sent to the ER. Her primary care's office does report that she has been to the ER several times for chest pain and had this evaluated. She is here for follow-up and again is sent to the emergency room. Her EKG on my interpretation shows a sinus rhythm with a ventricular rate of 78 bpm without sign of ischemic change. Examined her left shoulder and she does have some pain in his left shoulder anteriorly but has full range of motion. There is no deformity. There are some tenderness palpation of the left upper chest wall. Chest x-ray which shows no acute cardiopulmonary process on my interpretation and left shoulder shows no acute findings either on my interpretation. CBC and BMP unremarkable. High-sensitivity troponin is 5:04 days of pain so I do believe that this is cardiac. Patient PERC negative. I feel patientis safe for outpatient follow-up. She is given oxycodone to help with her pain and bridge her to her next appointment. Impression: 1. Chest pain noncardiac 2. Acute on chronic left shoulder pain Discharge Plan Triage Chief Complaint: Upper Extremity Injury ED Provider: Michael Lopez Dx/Rx/DC Orders Instructions: ED Chest Pain, Noncardiac, ED Shoulder Sprain Prescriptions: New oxycodone-acetaminophen [Percocet] 5-325 mg tablet 1 tab PO Q6H PRN (Reason: pain) 3 Days Qty: 10 0RF No Action loratadine 10 MG tablet 10 mg PO DAILY glimepiride 4 MG tablet 4 mg PO BID lansoprazole 30 MG capsule,delayed release(DR/EC) 30 mg PO DAILY buspirone 7.5 MG tablet 10 mg PO TID Label Comments: TAKE 2 TABLETS BY MOUTH 3 TIMES A DAY spironolactone 50 MG tablet 50 mg PO DAILY insulin glargine 100 UNITS/ML insulin pen 26 units subcut QHS Label Comments: 1/2 dosage night before escitalopram oxalate 10 MG tablet 20 mg PO DAILY zolpidem 5 MG tablet 10 mg PO QHS meloxicam 15 MG tablet 15 mg PO DAILY famotidine 20 MG tablet 20 mg PO QHS metoprolol succinate 50 mg Tablet Extended Release 24 Hr 150 mg PO DAILY promethazine 25 mg tablet 25 mg PO TID PRN (Reason: nausea and vomiting) Qty: 14 0RF atorvastatin 10 mg tablet 10 mg PO QHS Label Comments: TAKE 1 TABLET BY MOUTH DAILY AT BEDTIME. FOR CHOLESTEROL insulin lispro [Humalog KwikPen Insulin] 100 unit/mL insulin pen SUBCUT Label Comments: SEE ATTACHED SHEET USING SLIDING SCALE diphenhydramine HCl [Allergy (diphenhydramine)] 25 mg tablet 50 mg PO TID PRN (Reason: allergic reaction) Qty: 20 0RF ondansetron 4 mg tablet,disintegrating 4 mg PO Q8H PRN (Reason: nausea and vomiting) Qty: 10 0RF Primary Care Provider: Joaquim Burks Referrals: Joaquim Burks DO [Primary Care Provider] - Disposition Disposition: Home, Self Care Discharge Date/Time: 01/04/22 19:13
--- NOTE | 2022-01-04 17:25 | RAD_ITS ---
STUDY: LEFT SHOULDER X-RAY SERIES OF 1744 HOURS ON 01/04/2022 REASON FOR EXAM: 56-year-old female with left shoulder pain. TECHNIQUE: 4 view(s) of the shoulder. COMPARISON: None. FINDINGS: No fractures or dislocations. No osseous lytic, sclerotic or mass lesions. No arthritic or degenerative changes. Normal acromioclavicular joint. No adjacent clavicle, scapula, and ribs. Normal soft tissues. RAD/Shoulder min 2 Views IMPRESSION: 1. Normal x-ray examination of the left shoulder. 2. No fractures or dislocations. 3. No arthritic or degenerative changes. Electronically Signed: Klever Villa MD at 18:03 EDT ,
--- NOTE | 2022-01-04 17:30 | RAD_ITS ---
STUDY: PORTABLE AP CHEST X-RAY AT 1743 HOURS ON 01/04/2022 REASON FOR EXAM: 56-year-old female with chest pain. TECHNIQUE: A single view portable AP chest x-ray was performed per protocol. COMPARISON: None. FINDINGS: Normal mineralization. Mild osteophytic degenerative changes of the lower thoracic spine. No cardiomegaly or heart failure. No pulmonary infiltrates, atelectasis, effusion, pulmonary mass lesions. No pneumonia, pneumonitis, bronchitis. No free subdiaphragmatic air. RAD/Chest 1 View (Portable) IMPRESSION: 1. No active cardiopulmonary disease. 2. Mild osteophytic degenerative changes of the lower thoracic spine. Electronically Signed: Klever Villa MD at 18:00 EDT ,
[2022-01-04 17:34] LABS: Absolute Lymphocyte Count 2.04 X10^3/uL (0.83-4.51); Absolute Neutrophil Count 5.4 X10^3/uL (2.0-7.7); Basophil# 0.06 X10^3/uL; Basophil% 0.7 % (0-1); Eosinophils% 2.4 % (0-5); Hematocrit 41.3 % (37-47); Hemoglobin 14.1 g/dL (12.0-15.0); Lymphocyte # 2.04 X10^3/ul (0.83-4.51); Lymphocyte % 24.3 % (19-41); Mean Corp Hgb Conc 34.1 g/dL (32-36); Mean Corpuscular Hgb 29.9 pg (27.0-32.0); Mean Corpuscular Volume 87.5 fL (81-99); Monocyte# 0.63 X10^3/uL; Monocyte% 7.5 % (0-10); NRBC Flagged by Analyzer 0 % (0-5); Neutrophil # 5.39 X10^3/uL (2.7-7.7); Neutrophil % 64.4 % (47-70); Platelet Count 226 K/mm3 (150-450); RBC Distribution Width CV 13.3 % (11.6-14.6); RBC Distribution Width SD 42.6 fl (35.1-43.9); Red Blood Count 4.72 M/mm3 (4.2-5.4); White Blood Count 8.4 K/mm3 (4.4-11.0)
[2022-01-04] MEDS: Ondansetron 4 MG/2 ML Vial IV (17:43)
[2022-01-04] MEDS: Morphine 4 MG/ML Syringe IV (17:43)
[2022-01-04 17:52] LABS: Anion Gap 9 (5-15); BUN 12 mg/dL (7-18); BUN/Creat Ratio 12.1 RATIO (10-20); Calcium,Total 9.3 mg/dL (8.5-10.1); Chloride 102 mmol/L (98-107); Creatinine, Serum 0.99 mg/dL (0.55-1.02); EST Glomerular Filtration Rate 62 mL/min (>60); Est Glom Filt Rate - Afr Amer 75 mL/min (>60); Glucose 127 mg/dL (74-106); Potassium 3.9 mmol/L (3.5-5.1); Sodium Level 137 mmol/L (136-145); Troponin-I HS (w/2H Reflex) 4 pg/mL (3.0-54.0)
[2022-01-04 19:11] VITALS: BP 107/60; PULSE 76; RESP 15; O2SAT 99
[2022-01-04 19:32] LABS: Reflex Troponin-HS? (from REC) Y
== END 2022-01-04 19:13 | disposition home or self-care (01) ==
PROVIDERS: Emergency Provider Student in an Organized Health Care Education/Training Program; PCP Student in an Organized Health Care Education/Training Program; Visit Provider Student in an Organized Health Care Education/Training Program
DX: R07.89 Other chest pain (principal); J44.9 Chronic obstructive pulmonary disease, unspecified; E66.01 Morbid (severe) obesity due to excess calories; Z68.41 Body mass index [BMI] 40.0-44.9, adult; E11.9 Type 2 diabetes mellitus without complications; Z79.4 Long term (current) use of insulin; Z87.891 Personal history of nicotine dependence; G89.29 Other chronic pain; I10 Essential (primary) hypertension; E78.5 Hyperlipidemia, unspecified; M25.512 Pain in left shoulder; Z87.19 Personal history of other diseases of the digestive system; K21.9 Gastro-esophageal reflux disease without esophagitis; F32.A Depression, unspecified; F41.9 Anxiety disorder, unspecified; G47.33 Obstructive sleep apnea (adult) (pediatric); Z79.899 Other long term (current) drug therapy
CPT/HCPCS: 71045; 73030; 80048; 84484; 85025; 93005; 96374; 96375; 99285; J2405

== ENCOUNTER → 2022-04-19 | Emergency (ER) | payer MEDICARE, MEDICAID, SELFPAY ==
[2022-04-19 23:14] VITALS: BP 152/99; PULSE 100; RESP 16; TEMP 36.1; O2SAT 97; BMI 42.3
--- NOTE | 2022-04-20 00:10 | ED.VIS.FEGU ---
HPI HPI - Female History of Present Illness Chief Complaint: Complaint Detail of Chief Complaint: Dysuria Informant: patient Pain Pain: Negative for Pelvic Pain Bleeding Issue: Negative for Vaginal bleeding Associated Symptoms Associated Symptoms: Positive for Dysuria, Frequency and Urgency; Negative for Hematuria Narrative Narrative: 57-year-old female history of COPD, hypertension, diabetes. She has had prior bladder suspension surgery. States for the last 1 to 2 weeks she has had dysuria with odor. She had similar symptoms in December had a negative work-up and a negative UA at that time. States that she has had some frequency. Patient has a history of nausea vomiting that is not new. She denies any fever. Prior similar symptoms: Yes Recent Illness/Hospitalization: No PFSH PFS Medical History Acute pancreatitis Acute respiratory failure Angioedema Anxiety and depression C. difficile diarrhea COPD (chronic obstructive pulmonary disease) Depression Difficulty breathing Former tobacco use GERD (gastroesophageal reflux disease) Hiatal hernia Hyperglycemia Hyperlipidemia Hypertension Morbid obesity Neck pain SHARMIN (obstructive sleep apnea) Tracheostomy dependence Type II diabetes mellitus Upper airway obstruction Home Medications loratadine 10 mg tablet 10 mg PO DAILY allergies 12/16/16 [History Last Taken 08/27/19] glimepiride 4 mg tablet 4 mg PO BID diabetes 05/25/17 [History Last Taken 08/27/19] lansoprazole 30 mg capsule,delayed release 30 mg PO DAILY gerd 07/06/18 [History Last Taken 04/07/20 08:00] buspirone 7.5 mg tablet 10 mg PO TID mental health 02/20/19 [History Last Taken 08/27/19] spironolactone 50 mg tablet 50 mg PO DAILY water pill 02/20/19 [History Last Taken 08/27/19] insulin glargine 100 unit/mL (3 mL) subcutaneous pen 26 units subcut QHS 07/10/19 [History Last Taken 08/26/19] escitalopram oxalate 10 mg tablet 20 mg PO DAILY depression 11/08/19 [History Last Taken Unknown] zolpidem 5 mg tablet 10 mg PO QHS 03/15/20 [History Last Taken Unknown] famotidine 20 mg tablet 20 mg PO QHS 09/21/20 [History Last Taken Unknown] meloxicam 15 mg tablet 15 mg PO DAILY 09/21/20 [History Last Taken Unknown] metoprolol succinate 50 mg tablet,extended release 24 hr 150 mg PO DAILY 01/13/21 [History Last Taken Unknown] promethazine 25 mg tablet 25 mg PO TID PRN nausea and vomiting #14 tabs 08/25/21 [Rx Last Taken Unknown] atorvastatin 10 mg tablet 10 mg PO QHS 09/22/21 [History Last Taken Unknown] diphenhydramine HCl 25 mg tablet (Allergy (diphenhydramine)) 50 mg PO TID PRN allergic reaction #20 tabs 11/10/21 [Rx Last Taken Unknown] insulin lispro 100 unit/mL subcutaneous pen (Humalog KwikPen (U-100) Insulin) subcut 11/10/21 [History Last Taken Unknown] ondansetron 4 mg disintegrating tablet 4 mg PO Q8H PRN nausea and vomiting #10 tabs 11/10/21 [Rx Last Taken Unknown] oxycodone-acetaminophen 5 mg-325 mg tablet (Percocet) 1 tab PO Q6H PRN pain 3 days #10 tabs 01/04/22 [Rx Last Taken Unknown] Allergy/AdvReac Type Severity Reaction Status Date / Time bupropion [From Wellbutrin] Allergy Angioedema Verified 04/19/22 23:14 lisinopril Allergy Angioedema Verified 04/19/22 23:14 sulfamethoxazole Allergy Rash Verified 04/19/22 23:14 [From Bactrim] trimethoprim [From Bactrim] Allergy Rash Verified 04/19/22 23:14 aspirin AdvReac Nausea/Vom/ Verified 04/19/22 23:14 Diarrhea hydrocodone [From Vicodin] AdvReac Nausea/Vom/ Verified 04/19/22 23:14 Diarrhea rosuvastatin [From Crestor] AdvReac PT UNSURE Verified 04/19/22 23:14 OF REACTION Surgical History s/p bladder sling S/P laparoscopic cholecystectomy s/p novasure S/P tubal ligation Status post tracheostomy Social History Smoking Status: Former smoker substance use type: does not use ROS ROS ED ROS Narrative Dysuria. Nausea and vomiting which is chronic. Review of Systems ROS Unobtainable: Denies due to encephalopathy Constitutional Constitutional ED: Denies chills or fever(s) Eyes Eyes: Denies blurry vision ENT ENT ED: Denies ear pain Cardiovascular Cardiovascular: Denies chest pain Respiratory/Chest Respiratory/Chest: Denies cough or dyspnea Gastrointestinal Gastrointestinal: Reports nausea and vomiting; Denies abdominal pain, constipation, diarrhea or melena Genitourinary Genitourinary ED: Reports dysuria and urinary frequency; Denies hematuria Musculoskeletal Musculoskeletal: Denies arthralgias Integumentary Denies abscess Neurologic Neurologic: Denies headache(s) Psychiatric Psychiatric: Denies anxiety Endocrine Endocrinology: Denies heat intolerance Hematologic/Lymphatic Hematologic/Lymphatic: Denies easy bleeding Allergic/Immunologic Allergic/Immunologic ED: Denies mouth swelling or tongue swelling EXAM Physical Exam Narrative Exam Narrative: 57-year-old female no acute distress. Vital signs are stable afebrile. HEENT exam unremarkable. Moist mucous membranes. Lungs clear. Heart regular rhythm. Abdomen soft nontender. Moving all 4 extremities. Nontender. No edema. Back nontender. Neurologic exam unremarkable. Const Vital Signs: 04/19/22 23:14 Temperature 97.0 F L Temperature Source Temporal Pulse Rate 100 Respiratory Rate 16 Blood Pressure 152/99 H Blood Pressure Mean 116 Pulse Ox 97 Oxygen Delivery Method Room Air Positive well nourished, well developed and obese; Negative for cachectic, contractures or unkempt General Appearance ED: well developed and NAD; Negative for unkempt, cachectic, contractures, odor of alcohol detected or pallor Nutritional Appearance: obese; Negative for cachectic HEENT Reports moist mucous membranes Negative for trauma or tenderness Eyes PERRL and EOMs intact bilaterally Neck no lymphadenopathy, supple and no JVD General: Negative for other Thyroid: Negative for tender Lymph Lymphatic: Negative for other Chest Wall inspection of chest normal and palpation of chest normal Resp normal respiratory effort and clear to auscultation bilaterally Effort and Inspection: Negative for pain with movement Auscultation: Negative for rales, rhonchi or wheezes Cardio regular rate, regular rhythm, S1 normal heart sound, no murmurs and no JVD Rate: Negative for bradycardia Rhythm: Negative for abnormal rhythm GI normal to inspection, nondistended, normoactive bowel sounds, soft to palpation, non-tender, non-distended and no masses Auscultation: normoactive bowel sounds Palpation: Negative for tender, guarding or rigid Back/Spine no CVA tenderness General Back: Negative for CVA tenderness Cervical Spine: Negative for cervical spine tenderness Thoracic Spine / Upper Back: Negative for thoracic spinal tenderness Lumbar Spine / Lower Back: Negative for lumbar spinal tenderness Sacrum: Negative for other Extremity normal to inspection and full ROM Neuro oriented x3 Sensorium / Orientation: alert, oriented to person, oriented to place and oriented to time; Negative for confused, lethargic or stuporous Motor Exam: strength 5/5 throughout Psych mental status grossly normal Appearance: Negative for unkempt Attitude: No agitated Speech: No other Mood & Affect: Negative for depressed, anxious or tearful Skin no rashes or lesions noted General Skin Exam: Negative for jaundice or pallor Rashes: No rashes noted MDM MDM MDM Narrative Medical decision making narrative: 57-year-old diabetic female with dysuria. Exam benign. Recent labs 2 months ago unremarkable. UA will be obtained. Emergency department was busy. Patient was seen quickly. She had given nursing urinalysis and then decided she did not want a wait. So she left without being discharged. She told the nurse no reason to send a urinalysis. Lab Data Attestation: I reviewed the patient's lab results. Discharge Plan Triage Chief Complaint: Complaint ED Provider: Ross Slulivan Dx/Rx/DC Orders Clinical Impression: Dysuria, Eloped from emergency department Prescriptions: No Action loratadine 10 MG tablet 10 mg PO DAILY glimepiride 4 MG tablet 4 mg PO BID lansoprazole 30 MG capsule,delayed release(DR/EC) 30 mg PO DAILY buspirone 7.5 MG tablet 10 mg PO TID Label Comments: TAKE 2 TABLETS BY MOUTH 3 TIMES A DAY spironolactone 50 MG tablet 50 mg PO DAILY insulin glargine 100 UNITS/ML insulin pen 26 units subcut QHS Label Comments: 1/2 dosage night before escitalopram oxalate 10 MG tablet 20 mg PO DAILY zolpidem 5 MG tablet 10 mg PO QHS meloxicam 15 MG tablet 15 mg PO DAILY famotidine 20 MG tablet 20 mg PO QHS metoprolol succinate 50 mg Tablet Extended Release 24 Hr 150 mg PO DAILY promethazine 25 mg tablet 25 mg PO TID PRN (Reason: nausea and vomiting) Qty: 14 0RF atorvastatin 10 mg tablet 10 mg PO QHS Label Comments: TAKE 1 TABLET BY MOUTH DAILY AT BEDTIME. FOR CHOLESTEROL insulin lispro [Humalog KwikPen Insulin] 100 unit/mL insulin pen SUBCUT Label Comments: SEE ATTACHED SHEET USING SLIDING SCALE diphenhydramine HCl [Allergy (diphenhydramine)] 25 mg tablet 50 mg PO TID PRN (Reason: allergic reaction) Qty: 20 0RF ondansetron 4 mg tablet,disintegrating 4 mg PO Q8H PRN (Reason: nausea and vomiting) Qty: 10 0RF oxycodone-acetaminophen [Percocet] 5-325 mg tablet 1 tab PO Q6H PRN (Reason: pain) 3 Days Qty: 10 0RF Primary Care Provider: Joaquim Burks Referrals: Joaquim Burks DO [Primary Care Provider] - Disposition Disposition: Elopement
--- NOTE | 2022-04-20 01:02 | ED.RN ---
patient upset she has been here over an hour and not had pain med. Reports a pain of 8 on pain scale from her kidneys and legs. States tylenol and not help and has not had IBU in 8 hours. States she has a urine to send down. Collected the urine and talked to Dr Sullivan who offered IBU. Pt declined IBU and said she was leaving and going somewhere else where she can get taken care of. Asked her if she wanted the urine tested still and she stated no. Patient left without signing paperwork
--- NOTE | 2022-04-20 02:27 | ED.RN ---
pt left ama
== END | disposition left against medical advice (07) ==
LOC: ED 04-20 01:21
PROVIDERS: Emergency Provider Emergency Medicine; PCP Student in an Organized Health Care Education/Training Program; Visit Provider Emergency Medicine
DX: R30.0 Dysuria (principal); J44.9 Chronic obstructive pulmonary disease, unspecified; E11.9 Type 2 diabetes mellitus without complications; E78.5 Hyperlipidemia, unspecified; I10 Essential (primary) hypertension; R35.0 Frequency of micturition; R39.15 Urgency of urination; R11.2 Nausea with vomiting, unspecified; E66.9 Obesity, unspecified; Z87.891 Personal history of nicotine dependence; Z98.890 Other specified postprocedural states; Z53.29 Procedure and treatment not carried out because of patient's decision for other reasons

== ENCOUNTER 2022-04-20 19:58 | Emergency (ER) | payer MEDICARE, MEDICAID, SELFPAY ==
[2022-04-20 19:59] VITALS: BP 177/107; PULSE 126; RESP 18; TEMP 37.1; O2SAT 96; BMI 39.9
--- NOTE | 2022-04-20 20:30 | CM.ED ---
Addendum entered by Eusebia Mendoza 04/20/22 20:30: Eusebia NAVARROCOLLIN Original Note: SW called [facility] and updated her that patient needs to be seen. loan secretary, Leydi, will fax referral packet to [facility] at [facility] when patient is medically cleared. Handoff given to Cyn.
--- NOTE | 2022-04-20 20:41 | ED.RN ---
Per Dr Raya patient is no suicidal and does not require a sitter. Pt told doctor that she ran out of her ambien so she took OTC sleeping pills, they didnt work and they didnt work she took more. She denies SI, states she just wants to talk to someone.
--- NOTE | 2022-04-20 21:28 | EX.ED.DYSGE1 ---
HPI History of Present Illness Chief Complaint: Overdose Informant: patient Narrative Narrative: Patient was brought here after police came to her house. She had told friends that she took about 8 sleeping pills last night to sleep. They thought she tried to hurt herself and called the police. She states she normally takes Ambien which works well but she is out of it. She had a stressful day. She was in the emergency department and left because of a long wait. She states she went home and took an [id number] sleeping pill. It did not work so she took more. She states she just wanted to get a night sleep. She was not trying to hurt herself. She states she did have an admission to the hospital for depression and suicidal thoughts about 3 years ago when her younger brother . She is not to that point now. She admits that she does have a lot of stress. She would be happy to see a counselor or psychiatrist. She is on meds for depression long-term. These are prescribed by her primary doctor. [facility] Medical History Acute pancreatitis Acute respiratory failure Angioedema Anxiety and depression C. difficile diarrhea COPD (chronic obstructive pulmonary disease) Depression Difficulty breathing Former tobacco use GERD (gastroesophageal reflux disease) Hiatal hernia Hyperglycemia Hyperlipidemia Hypertension Morbid obesity Neck pain SHARMIN (obstructive sleep apnea) Tracheostomy dependence Type II diabetes mellitus Upper airway obstruction Home Medications loratadine 10 mg tablet 10 mg PO DAILY allergies 12/16/16 [History Last Taken 08/27/19] glimepiride 4 mg tablet 4 mg PO BID diabetes 05/25/17 [History Last Taken 08/27/19] lansoprazole 30 mg capsule,delayed release 30 mg PO DAILY gerd 07/06/18 [History Last Taken 04/07/20 08:00] buspirone 7.5 mg tablet 10 mg PO TID mental health 02/20/19 [History Last Taken 08/27/19] spironolactone 50 mg tablet 50 mg PO DAILY water pill 02/20/19 [History Last Taken 08/27/19] insulin glargine 100 unit/mL (3 mL) subcutaneous pen 26 units subcut QHS 07/10/19 [History Last Taken 08/26/19] escitalopram oxalate 10 mg tablet 20 mg PO DAILY depression 11/08/19 [History Last Taken Unknown] zolpidem 5 mg tablet 10 mg PO QHS 03/15/20 [History Last Taken Unknown] famotidine 20 mg tablet 20 mg PO QHS 09/21/20 [History Last Taken Unknown] meloxicam 15 mg tablet 15 mg PO DAILY 09/21/20 [History Last Taken Unknown] metoprolol succinate 50 mg tablet,extended release 24 hr 150 mg PO DAILY 01/13/21 [History Last Taken Unknown] promethazine 25 mg tablet 25 mg PO TID PRN nausea and vomiting #14 tabs 08/25/21 [Rx Last Taken Unknown] atorvastatin 10 mg tablet 10 mg PO QHS 09/22/21 [History Last Taken Unknown] diphenhydramine HCl 25 mg tablet (Allergy (diphenhydramine)) 50 mg PO TID PRN allergic reaction #20 tabs 11/10/21 [Rx Last Taken Unknown] insulin lispro 100 unit/mL subcutaneous pen (Humalog KwikPen (U-100) Insulin) subcut 11/10/21 [History Last Taken Unknown] ondansetron 4 mg disintegrating tablet 4 mg PO Q8H PRN nausea and vomiting #10 tabs 11/10/21 [Rx Last Taken Unknown] oxycodone-acetaminophen 5 mg-325 mg tablet (Percocet) 1 tab PO Q6H PRN pain 3 days #10 tabs 01/04/22 [Rx Last Taken Unknown] Allergy/AdvReac Type Severity Reaction Status Date / Time bupropion [From Wellbutrin] Allergy Angioedema Verified 04/20/22 20:02 lisinopril Allergy Angioedema Verified 04/20/22 20:02 sulfamethoxazole Allergy Rash Verified 04/20/22 20:02 [From Bactrim] trimethoprim [From Bactrim] Allergy Rash Verified 04/20/22 20:02 aspirin AdvReac Nausea/Vom/ Verified 04/20/22 20:02 Diarrhea hydrocodone [From Vicodin] AdvReac Nausea/Vom/ Verified 04/20/22 20:02 Diarrhea rosuvastatin [From Crestor] AdvReac PT UNSURE Verified 04/20/22 20:02 OF REACTION Surgical History s/p bladder sling S/P laparoscopic cholecystectomy s/p novasure S/P tubal ligation Status post tracheostomy Social History Smoking Status: Former smoker substance use type: does not use ROS ROS ED Constitutional Constitutional ED: Denies chills or fever(s) Eyes Eyes: Denies change in vision ENT ENT ED: Denies sore throat Cardiovascular Cardiovascular: Denies chest pain Respiratory/Chest Respiratory/Chest: Denies cough or dyspnea Gastrointestinal Gastrointestinal: Denies nausea or vomiting Musculoskeletal Musculoskeletal: Denies arthralgias or myalgias Integumentary Denies rash Neurologic Neurologic: Denies headache(s) Psychiatric Psychiatric: Reports depression; Denies suicidal ideation or suicidal thoughts Hematologic/Lymphatic Hematologic/Lymphatic: Denies easy bleeding or easy bruising Allergic/Immunologic Allergic/Immunologic ED: Denies urticaria EXAM Physical Exam Const Vital Signs: 04/20/22 19:59 04/20/22 21:33 04/20/22 22:17 Temperature 98.7 F Temperature Source Temporal Pulse Rate 126 H Respiratory Rate 18 16 16 Blood Pressure 177/107 H Blood Pressure Mean 130 Pulse Ox 96 Oxygen Delivery Method Room Air Room Air 04/20/22 23:16 Temperature Temperature Source Pulse Rate Respiratory Rate 18 Blood Pressure Blood Pressure Mean Pulse Ox Oxygen Delivery Method Room Air Positive well nourished and well developed General Appearance ED: well developed and NAD HEENT Reports moist mucous membranes Eyes General Eye ED: Negative for pale conjunctiva or scleral icterus Resp normal respiratory effort and clear to auscultation bilaterally Cardio regular rate and regular rhythm GI normal to inspection, nondistended, normoactive bowel sounds and non-tender Extremity normal to inspection Neuro oriented x3 Sensorium / Orientation: alert; Negative for orientation impaired, lethargic or stuporous Psych mental status grossly normal Psych Narrative: Patient is frustrated at being here. However she is very conversant with me. She seems very open about all the issues. I do not get the feeling that she is suicidal. I get the feeling that she was just trying to get a night sleep and the meds did not work. She took more. She normally takes Ambien and that works just fine but she did not have any. She states she has to take care of her boyfriend. She has grandchildren that she loves. She does not want to leave them. She would not hurt herself. She stated she would be happy to get some resources for counseling as she does admit to a lot of stresses in her life and thinks that she could benefit from these. Skin no rashes or lesions noted MDM MDM MDM Narrative Medical decision making narrative: We are going to see if we can have crisis see the patient and they can give her some resources for follow-up and treatment. Crisis is seen and evaluated the patient. They also agree that the patient does not need inpatient therapy. They have made outpatient follow-up plans and safety plan. We will get her home at this time Discharge Plan Triage Chief Complaint: Overdose ED Provider: Abbe Raya Dx/Rx/DC Orders Clinical Impression: Stress reaction Instructions: Stress Relief: Activities, ED Depression Prescriptions: No Action loratadine 10 MG tablet 10 mg PO DAILY glimepiride 4 MG tablet 4 mg PO BID lansoprazole 30 MG capsule,delayed release(DR/EC) 30 mg PO DAILY buspirone 7.5 MG tablet 10 mg PO TID Label Comments: TAKE 2 TABLETS BY MOUTH 3 TIMES A DAY spironolactone 50 MG tablet 50 mg PO DAILY insulin glargine 100 UNITS/ML insulin pen 26 units subcut QHS Label Comments: 1/2 dosage night before escitalopram oxalate 10 MG tablet 20 mg PO DAILY zolpidem 5 MG tablet 10 mg PO QHS meloxicam 15 MG tablet 15 mg PO DAILY famotidine 20 MG tablet 20 mg PO QHS metoprolol succinate 50 mg Tablet Extended Release 24 Hr 150 mg PO DAILY promethazine 25 mg tablet 25 mg PO TID PRN (Reason: nausea and vomiting) Qty: 14 0RF atorvastatin 10 mg tablet 10 mg PO QHS Label Comments: TAKE 1 TABLET BY MOUTH DAILY AT BEDTIME. FOR CHOLESTEROL insulin lispro [Humalog KwikPen Insulin] 100 unit/mL insulin pen SUBCUT Label Comments: SEE ATTACHED SHEET USING SLIDING SCALE diphenhydramine HCl [Allergy (diphenhydramine)] 25 mg tablet 50 mg PO TID PRN (Reason: allergic reaction) Qty: 20 0RF ondansetron 4 mg tablet,disintegrating 4 mg PO Q8H PRN (Reason: nausea and vomiting) Qty: 10 0RF oxycodone-acetaminophen [Percocet] 5-325 mg tablet 1 tab PO Q6H PRN (Reason: pain) 3 Days Qty: 10 0RF Primary Care Provider: Joaquim Burks Referrals: Joaquim Burks, [Primary Care Provider] - As soon as possible Disposition Disposition: Home, Self Care
[2022-04-20 21:33] VITALS: RESP 16
[2022-04-20 22:17] VITALS: RESP 16
[2022-04-20 23:16] VITALS: RESP 18
[2022-04-21 00:27] VITALS: BP 160/117; PULSE 122; RESP 18
--- NOTE | 2022-04-21 00:31 | ED.RN ---
crisis faxed over safety plan for patient, this RN reviewed it with patient and she signed it. Pt stated she was going to walk home, [facility] offered to take patient home.
== END 2022-04-21 00:33 | disposition home or self-care (01) ==
PROVIDERS: Emergency Provider Emergency Medicine; PCP Student in an Organized Health Care Education/Training Program; Visit Provider Emergency Medicine
DX: F43.9 Reaction to severe stress, unspecified (principal); J44.9 Chronic obstructive pulmonary disease, unspecified; E11.9 Type 2 diabetes mellitus without complications; E78.5 Hyperlipidemia, unspecified; I10 Essential (primary) hypertension; F32.A Depression, unspecified; Z87.891 Personal history of nicotine dependence; Z79.899 Other long term (current) drug therapy
CPT/HCPCS: 99285

== ENCOUNTER 2022-10-09 18:49 | Emergency (ER) | payer MEDICARE, MEDICAID, SELFPAY ==
[2022-10-09 18:50] VITALS: BP 151/85; PULSE 89; RESP 18; TEMP 36.7; O2SAT 95; BMI 40.7
--- NOTE | 2022-10-09 20:15 | EDS_ITS ---
HPI History of Present Illness Chief Complaint: Cellulitis Narrative Narrative: 57-year-old female here with concern for worsening cellulitis. States she was started on oral antibiotics recently. States she is on Augmentin day 1 of 10 for cellulitis. Denies any fever, chills, syncope. Denies any nausea or vomiting. States she only took 1 dose of Augmentin PFSH PFS Medical History Acute pancreatitis Acute respiratory failure Angioedema Anxiety and depression C. difficile diarrhea COPD (chronic obstructive pulmonary disease) Depression Difficulty breathing Former tobacco use GERD (gastroesophageal reflux disease) Hiatal hernia Hyperglycemia Hyperlipidemia Hypertension Morbid obesity Neck pain SHARMIN (obstructive sleep apnea) Tracheostomy dependence Type II diabetes mellitus Upper airway obstruction Home Medications loratadine 10 mg tablet 10 mg PO DAILY allergies 12/16/16 [History Last Taken 08/27/19] glimepiride 4 mg tablet 4 mg PO BID diabetes 05/25/17 [History Last Taken 08/27/19] lansoprazole 30 mg capsule,delayed release 30 mg PO DAILY gerd 07/06/18 [History Last Taken 04/07/20 08:00] buspirone 7.5 mg tablet 10 mg PO TID mental health 02/20/19 [History Last Taken 08/27/19] spironolactone 50 mg tablet 50 mg PO DAILY water pill 02/20/19 [History Last Taken 08/27/19] insulin glargine 100 unit/mL (3 mL) subcutaneous pen 26 units subcut QHS 07/10/19 [History Last Taken 08/26/19] escitalopram oxalate 10 mg tablet 20 mg PO DAILY depression 11/08/19 [History Last Taken Unknown] zolpidem 5 mg tablet 10 mg PO QHS 03/15/20 [History Last Taken Unknown] famotidine 20 mg tablet 20 mg PO QHS 09/21/20 [History Last Taken Unknown] meloxicam 15 mg tablet 15 mg PO DAILY 09/21/20 [History Last Taken Unknown] metoprolol succinate 50 mg tablet,extended release 24 hr 150 mg PO DAILY 01/13/21 [History Last Taken Unknown] promethazine 25 mg tablet 25 mg PO TID PRN nausea and vomiting #14 tabs 08/25/21 [Rx Last Taken Unknown] atorvastatin 10 mg tablet 10 mg PO QHS 09/22/21 [History Last Taken Unknown] diphenhydramine HCl 25 mg tablet (Allergy (diphenhydramine)) 50 mg PO TID PRN allergic reaction #20 tabs 11/10/21 [Rx Last Taken Unknown] insulin lispro 100 unit/mL subcutaneous pen (Humalog KwikPen (U-100) Insulin) subcut 11/10/21 [History Last Taken Unknown] ondansetron 4 mg disintegrating tablet 4 mg PO Q8H PRN nausea and vomiting #10 tabs 11/10/21 [Rx Last Taken Unknown] oxycodone-acetaminophen 5 mg-325 mg tablet (Percocet) 1 tab PO Q6H PRN pain 3 days #10 tabs 01/04/22 [Rx Last Taken Unknown] Allergy/AdvReac Type Severity Reaction Status Date / Time bupropion [From Wellbutrin] Allergy Angioedema Verified 10/09/22 18:52 lisinopril Allergy Angioedema Verified 10/09/22 18:52 sulfamethoxazole Allergy Rash Verified 10/09/22 18:52 [From Bactrim] trimethoprim [From Bactrim] Allergy Rash Verified 10/09/22 18:52 aspirin AdvReac Nausea/Vom/ Verified 10/09/22 18:52 Diarrhea hydrocodone [From Vicodin] AdvReac Nausea/Vom/ Verified 10/09/22 18:52 Diarrhea rosuvastatin [From Crestor] AdvReac PT UNSURE Verified 10/09/22 18:52 OF REACTION Surgical History s/p bladder sling S/P laparoscopic cholecystectomy s/p novasure S/P tubal ligation Status post tracheostomy Social History Smoking Status: Former smoker substance use type: does not use ROS ROS ED ROS Narrative Constitutional: Denies fever HEENT: Denies sore throat Neck: Denies neck pain Cardiovascular: Denies chest pain, syncope Respiratory: Denies shortness of breath GI: Denies nausea vomiting or abdominal pain : Denies changes in urinary habits Musculoskeletal: Denies muscle or joint pain Neurologic: Denies numbness weakness or loss of sensation Skin endorses rash, cellulitic changes EXAM Physical Exam Narrative Exam Narrative: Nursing triage notes reviewed, Vital signs reviewed Constitutional: please see mdm HENT: MMM Eyes: Pupils equal round and reactive to light, Extraocular muscles intact Neck: No stridor, no JVD, full neck ROM Lungs: Clear to auscultation, No wheezing or rales. No increased work of breathing, no conversational dyspnea, no accessory muscle use, no nasal flaring. No respiratory distress noted Heart: Regular rate and rhythm, No murmurs, No rubs and No gallops, 2+ distal pulses (radial, femoral, posterior tibial) in all extremities Abdomen: Soft, there is no tenderness, rigidity, rebound or guarding, no obvious peritoneal signs, no palpable pulsatile abdominal masses, no auscultated abdominal bruit : No CVAT Extremities: No edema Neuro: No focal neurological deficits, cranial nerves II through XII intact, 5/5 strength in all extremities. Intact sensation to light touch in all extremities, 2+ reflexes bilateral patella dens. Normal gait. No ataxia. Skin: Const Vital Signs: 10/09/22 18:50 10/09/22 21:04 Temperature 98.0 F Temperature Source Temporal Pulse Rate 89 78 Respiratory Rate 18 18 Blood Pressure 151/85 H Blood Pressure Mean 107 Pulse Ox 95 Oxygen Delivery Method Room Air MDM [facility] MDM Narrative Medical decision making narrative: Chief Complaint: Cellulitis External records reviewed: No recent ED visits or hospitalizations I considered the following differential diagnosis: Cellulitis, necrotizing fasciitis Patient's exam is consistent with cellulitis likely secondary to cat scratch she is on Augmentin day 1 of 10. There is appropriate treatment. She had no fever she had no vomiting no systemic symptoms. Have a low suspicion for sepsis or severe infection at this time. I encourage patient continue to take antimicrobial therapy and to return if symptoms change worsen or she develops any issues with antimicrobial compliance. Factors affecting care: History of COPD, hyperglycemia, Social determinants of health: Poor health literacy, former smoker History obtained from others: None Shared decision making: I will have a discussion with the patient and or visitors regarding risk/benefits of further testing or admission. They will be made aware of of the risk/benefits inherent in this decision they will be given the opportunity to voice understanding. Consults: None Discharge Plan Triage Chief Complaint: Cellulitis ED Provider: Jesse Ellis Dx/Rx/DC Orders Clinical Impression: Cellulitis Instructions: Cellulitis Dc Prescriptions: No Action loratadine 10 MG tablet 10 mg PO DAILY glimepiride 4 MG tablet 4 mg PO BID lansoprazole 30 MG capsule,delayed release(DR/EC) 30 mg PO DAILY buspirone 7.5 MG tablet 10 mg PO TID Label Comments: TAKE 2 TABLETS BY MOUTH 3 TIMES A DAY spironolactone 50 MG tablet 50 mg PO DAILY insulin glargine 100 UNITS/ML insulin pen 26 units subcut QHS Label Comments: 1/2 dosage night before escitalopram oxalate 10 MG tablet 20 mg PO DAILY zolpidem 5 MG tablet 10 mg PO QHS meloxicam 15 MG tablet 15 mg PO DAILY famotidine 20 MG tablet 20 mg PO QHS metoprolol succinate 50 mg Tablet Extended Release 24 Hr 150 mg PO DAILY promethazine 25 mg tablet 25 mg PO TID PRN (Reason: nausea and vomiting) Qty: 14 0RF atorvastatin 10 mg tablet 10 mg PO QHS Label Comments: TAKE 1 TABLET BY MOUTH DAILY AT BEDTIME. FOR CHOLESTEROL insulin lispro [Humalog KwikPen Insulin] 100 unit/mL insulin pen SUBCUT Label Comments: SEE ATTACHED SHEET USING SLIDING SCALE diphenhydramine HCl [Allergy (diphenhydramine)] 25 mg tablet 50 mg PO TID PRN (Reason: allergic reaction) Qty: 20 0RF ondansetron 4 mg tablet,disintegrating 4 mg PO Q8H PRN (Reason: nausea and vomiting) Qty: 10 0RF oxycodone-acetaminophen [Percocet] 5-325 mg tablet 1 tab PO Q6H PRN (Reason: pain) 3 Days Qty: 10 0RF Primary Care Provider: Joaquim Burks Referrals: Joaquim Burks DO [Primary Care Provider] - Activity Restrictions/Additional Instructions: Please take all antibiotics until course completed. Please return if develop systemic symptoms such as fever, vomiting, inability to take your antibiotics. If redness worsens, spreads rapidly over hours please return to the ED Disposition Disposition: Home, Self Care Discharge Date/Time: 10/09/22 21:04
[2022-10-09 21:04] VITALS: PULSE 78; RESP 18
== END 2022-10-09 21:04 | disposition home or self-care (01) ==
LOC: ED 20:47
PROVIDERS: Emergency Provider Emergency Medicine; PCP Student in an Organized Health Care Education/Training Program; Referring Provider Emergency Medicine; Visit Provider Emergency Medicine
DX: L03.90 Cellulitis, unspecified (principal); J44.9 Chronic obstructive pulmonary disease, unspecified; E11.9 Type 2 diabetes mellitus without complications; Z79.4 Long term (current) use of insulin; I10 Essential (primary) hypertension; Z87.891 Personal history of nicotine dependence; E78.5 Hyperlipidemia, unspecified; Z79.899 Other long term (current) drug therapy; F41.8 Other specified anxiety disorders; K21.9 Gastro-esophageal reflux disease without esophagitis
CPT/HCPCS: 99282

== ENCOUNTER 2023-01-27 20:15 | Emergency (ER) | payer MEDICARE, MEDICAID, SELFPAY ==
[2023-01-27 20:16] VITALS: BP 139/100; PULSE 100; RESP 18; TEMP 36.4; O2SAT 97; BMI 40.3
--- NOTE | 2023-01-27 20:35 | CT_ITS ---
STUDY: CTA OF THE BRAIN REASON FOR EXAM: Female, 57 years old. headache, family h/o aneurysms RADIATION DOSAGE (If Supplied By Facility): CTDIvol = ( 27.29 ) mGy, DLP = ( 1244.29 ) mGycm TECHNIQUE: CT angiography was performed with a multi-detector CT scanner. Data acquisition was obtained from the skull base through the vertex following intravenous administration of IV 75mL Isovue-370. MIP images were reconstructed from the axial data set. Post-processing of the angiographic images was performed, with multiplanar reformation and 3D reconstruction. Individualized dose optimization techniques were used for this CT. COMPARISON: None. FINDINGS: Normal bilateral petrous carotid arteries. Normal right cavernous carotid artery with a normal supraclinoid bifurcation. Normal left cavernous carotid artery with a normal supraclinoid bifurcation. Normal right A1 segments of the anterior cerebral artery. Normal left A1 segments of the anterior cerebral artery. Normal intact anterior communicating artery (ACOM). Normal bilateral A2 segments of the anterior cerebral arteries. Normal right M1 and M2 segments of the middle cerebral arteries, with a normal M1 bifurcation. Normal left M1 and M2 segments of the middle cerebral arteries, with a normal M1 bifurcation. Normal right posterior communicating artery (PCOM). Normal left posterior communicating artery (PCOM). Normal bilateral vertebral arteries. Normal basilar artery with a normal basilar bifurcation. The visualized bilateral superior cerebellar (SCA) arteries are normal. Normal bilateral P1, P2 and visualized P3 segments of the posterior cerebral arteries. There is no demonstrated aneurysm of the [place]. There is no demonstrated abnormality of the visualized brain. CT/CTA Head W/WO Contrast IMPRESSION: Normal [place] without a demonstrated aneurysm or hemodynamically significant stenosis. Electronically Signed: Yoni Dooley MD at 22:10 EDT ,
--- NOTE | 2023-01-27 20:35 | EX.ED.DYSGE1 ---
HPI History of Present Illness Chief Complaint: Headache Informant: patient Onset/Context/Timing Onset: Days (3 days) Context: Gradual Onset Timing: Waxes and wanes Current Severity: Moderate Maximum Severity: Moderate Narrative Narrative: Patient presents with 3-day history of pounding headache with some blurry vision. She is a history of diabetes but was unable to get a blood glucose meter because of her insurance and is not sure what her blood sugars been running. She has been taking Tylenol without much improvement. She does comment that her father of a brain aneurysm [facility] Medical History (Updated 01/27/23 @ 22:[address] Johanny Irene MD) Acute pancreatitis Acute respiratory failure Angioedema Anxiety and depression C. difficile diarrhea COPD (chronic obstructive pulmonary disease) Depression Diabetes Difficulty breathing Former smoker Former tobacco use GERD (gastroesophageal reflux disease) Hiatal hernia Hyperglycemia Hyperlipidemia Hypertension Kidney stones Morbid obesity Myocardial infarct Neck pain SHARMIN (obstructive sleep apnea) Osteoporosis Sleep apnea Substance abuse Tracheostomy dependence Type II diabetes mellitus Upper airway obstruction Home Medications loratadine 10 mg tablet 10 mg PO DAILY allergies 12/16/16 [History Last Taken 08/27/19] glimepiride 4 mg tablet 4 mg PO BID diabetes 05/25/17 [History Last Taken 08/27/19] lansoprazole 30 mg capsule,delayed release 30 mg PO DAILY gerd 07/06/18 [History Last Taken 04/07/20 08:00] buspirone 7.5 mg tablet 10 mg PO TID mental health 02/20/19 [History Last Taken 08/27/19] spironolactone 50 mg tablet 50 mg PO DAILY water pill 02/20/19 [History Last Taken 08/27/19] insulin glargine 100 unit/mL (3 mL) subcutaneous pen 34 units subcut QHS 07/10/19 [History Last Taken 08/26/19] escitalopram oxalate 10 mg tablet 20 mg PO DAILY depression 11/08/19 [History Last Taken Unknown] zolpidem 5 mg tablet 10 mg PO QHS 03/15/20 [History Last Taken Unknown] famotidine 20 mg tablet 20 mg PO QHS 09/21/20 [History Last Taken Unknown] meloxicam 15 mg tablet 15 mg PO DAILY 09/21/20 [History Last Taken Unknown] metoprolol succinate 50 mg tablet,extended release 24 hr 150 mg PO DAILY 01/13/21 [History Last Taken Unknown] promethazine 25 mg tablet 25 mg PO TID PRN nausea and vomiting #14 tabs 08/25/21 [Rx Last Taken Unknown] atorvastatin 10 mg tablet 10 mg PO QHS 09/22/21 [History Last Taken Unknown] diphenhydramine HCl 25 mg tablet (Allergy (diphenhydramine)) 50 mg (2 x 25 mg) PO TID PRN allergic reaction #20 tabs 11/10/21 [Rx Last Taken Unknown] insulin lispro 100 unit/mL subcutaneous pen (Humalog KwikPen (U-100) Insulin) subcut 11/10/21 [History Last Taken Unknown] ondansetron 4 mg disintegrating tablet 4 mg PO Q8H PRN nausea and vomiting #10 tabs 11/10/21 [Rx Last Taken Unknown] oxycodone-acetaminophen 5 mg-325 mg tablet (Percocet) 1 tab PO Q6H PRN pain 3 days #10 tabs 01/04/22 [Rx Last Taken Unknown] carvedilol 25 mg tablet 25 mg PO Q12H 01/27/23 [History Last Taken Unknown] Allergy/AdvReac Type Severity Reaction Status Date / Time bupropion [From Wellbutrin] Allergy Angioedema Verified 01/27/23 20:18 lisinopril Allergy Angioedema Verified 01/27/23 20:18 sulfamethoxazole Allergy Rash Verified 01/27/23 20:18 [From Bactrim] trimethoprim [From Bactrim] Allergy Rash Verified 01/27/23 20:18 aspirin AdvReac Nausea/Vom/ Verified 01/27/23 20:18 Diarrhea hydrocodone [From Vicodin] AdvReac Nausea/Vom/ Verified 01/27/23 20:18 Diarrhea rosuvastatin [From Crestor] AdvReac PT UNSURE Verified 01/27/23 20:18 OF REACTION Surgical History (Updated 01/27/23 @ 20:48 by Bautista Guzman) History of cholecystectomy s/p bladder sling S/P laparoscopic cholecystectomy s/p novasure S/P tubal ligation Status post tracheostomy Social History Smoking Status: Former smoker substance use type: does not use ROS ROS ED Constitutional Constitutional ED: Denies chills or fever(s) Eyes Eyes: Denies change in vision or discharge from eye(s) ENT ENT ED: Denies discharge from eye(s), rhinorrhea or sore throat Cardiovascular Cardiovascular: Denies chest pain Respiratory/Chest Respiratory/Chest: Denies cough or dyspnea Gastrointestinal Gastrointestinal: Reports nausea; Denies abdominal pain, diarrhea or vomiting Genitourinary Genitourinary ED: Denies difficulty urinating or dysuria Musculoskeletal Musculoskeletal: Denies back pain or extremity pain Integumentary Denies Abrasions or rash Neurologic Neurologic: Reports headache(s); Denies weakness Psychiatric Psychiatric: Denies anxiety or depression Allergic/Immunologic Allergic/Immunologic ED: Denies lip swelling or urticaria EXAM Physical Exam Const Vital Signs: 01/27/23 20:16 Temperature 97.6 F L Temperature Source Temporal Pulse Rate 100 Respiratory Rate 18 Blood Pressure 139/100 H Blood Pressure Mean 113 Pulse Ox 97 Oxygen Delivery Method Room Air Positive well nourished and well developed General Appearance ED: well developed HEENT Reports normocephalic and head/scalp atraumatic Eyes PERRL and EOMs intact bilaterally Neck supple Chest Wall inspection of chest normal and palpation of chest normal Resp normal respiratory effort and clear to auscultation bilaterally Cardio regular rate and regular rhythm GI normal to inspection, nondistended, normoactive bowel sounds Palpation: soft Extremity normal to inspection Neuro oriented x3 and no sensory deficits noted Sensorium / Orientation: alert Motor Exam: strength 5/5 throughout Psych mental status grossly normal Skin no rashes or lesions noted MDM MDM MDM Narrative Medical decision making narrative: Labwork obtained to evaluate for leukocytosis, anemia, and electrolyte derangement. CTA of the head obtained given the patient's headaches and family history of aneurysms. Patient is given IV fluids along with Toradol and Zofran. Lab Data Attestation: I reviewed the patient's lab results. Labs: Laboratory Results - last 24 hr 01/27/23 01/27/23 01/27/23 20:22 20:55 20:55 WBC Cancelled Corrected WBC Cancelled RBC Cancelled Hgb Cancelled Hct Cancelled MCV Cancelled MCH Cancelled MCHC Cancelled RDW Std Deviation Cancelled RDW Coeff of [place] Cancelled Plt Count Cancelled MPV Cancelled Immature Gran % (Auto) Cancelled Neut % (Auto) Cancelled Lymph % (Auto) Cancelled [place] % (Auto) Cancelled Eos % (Auto) Cancelled Baso % (Auto) Cancelled Absolute Neuts (auto) Cancelled Absolute Lymphs (auto) Cancelled Total Counted Cancelled Neutrophils % (Manual) Cancelled Band Neutrophils % Cancelled Lymphocytes % (Manual) Cancelled Monocytes % (Manual) Cancelled Eosinophils % (Manual) Cancelled Basophils % (Manual) Cancelled Metamyelocytes % Cancelled Myelocytes % Cancelled Promyelocytes % Cancelled Blast Cells % Cancelled Plasma Cell % (Manual) Cancelled Other Cells % Cancelled Nucleated RBC % Cancelled Nucleated RBCs/100 WBC Cancelled Differential Comment Cancelled Diff Path Review Cancelled Hypersegmented Neuts Cancelled Atypical Lymphocytes Cancelled Reactive Lymphocytes Cancelled Smudge Cells Cancelled Toxic Granulation Cancelled Toxic Vacuolation Cancelled Dohle Bodies Cancelled Srikanth Rods Cancelled Platelet Estimate Cancelled Plt Morphology Comment Cancelled RBC Morphology Cancelled Cancelled Polychromasia Cancelled Hypochromasia Cancelled Poikilocytosis Cancelled Basophilic Stippling Cancelled Anisocytosis Cancelled Microcytosis Cancelled Macrocytosis Cancelled Spherocytes Cancelled Sickle Cells Cancelled Target Cells Cancelled Tear Drop Cells Cancelled Ovalocytes Cancelled Stomatocytes Cancelled [place] Bodies Cancelled [place] Cells Cancelled Bite Cells Cancelled Crenated Cell Cancelled Acanthocytes (Spur) Cancelled Rouleaux Cancelled Schistocytes Cancelled Sodium 130 L Potassium 5.4 H Chloride 101 Carbon Dioxide 19.0 L Anion Gap 10 BUN 26 H Creatinine 1.81 H Estim Creat Clear Calc 30.86 Est GFR (MDRD) Af Amer 37 L Est GFR (MDRD) Non-Af 31 L BUN/Creatinine Ratio 14.4 Glucose 220 H Calcium 9.5 POC Glucose 224 H 01/27/23 21:10 WBC 8.8 Corrected WBC RBC 4.67 Hgb 14.3 Hct 41.3 MCV 88.4 MCH 30.6 MCHC 34.6 RDW Std Deviation 40.9 RDW Coeff of Cecil 12.5 Plt Count 207 MPV 11.7 Immature Gran % (Auto) 0.700 Neut % (Auto) 64.7 Lymph % (Auto) 24.0 [place] % (Auto) 8.2 Eos % (Auto) 1.4 Baso % (Auto) 1.0 Absolute Neuts (auto) 5.7 Absolute Lymphs (auto) 2.10 Total Counted Neutrophils % (Manual) Band Neutrophils % Lymphocytes % (Manual) Monocytes % (Manual) Eosinophils % (Manual) Basophils % (Manual) Metamyelocytes % Myelocytes % Promyelocytes % Blast Cells % Plasma Cell % (Manual) Other Cells % Nucleated RBC % 0 Nucleated RBCs/100 WBC Differential Comment Diff Path Review Hypersegmented Neuts Atypical Lymphocytes Reactive Lymphocytes Smudge Cells Toxic Granulation Toxic Vacuolation Dohle Bodies Srikanth Rods Platelet Estimate Plt Morphology Comment RBC Morphology Polychromasia Hypochromasia Poikilocytosis Basophilic Stippling Anisocytosis Microcytosis Macrocytosis Spherocytes Sickle Cells Target Cells Tear Drop Cells Ovalocytes Stomatocytes [place] Bodies [place] Cells Bite Cells Crenated Cell Acanthocytes (Spur) Rouleaux Schistocytes Sodium Potassium Chloride Carbon Dioxide Anion Gap BUN Creatinine Estim Creat Clear Calc Est GFR (MDRD) Af Amer Est GFR (MDRD) Non-Af BUN/Creatinine Ratio Glucose Calcium POC Glucose Radiography Diagnostic Testing: Clinical Impression(s) from Imaging Studies Head CTA 01/27/23 20:35 IMPRESSION: Normal [place] without a demonstrated aneurysm or hemodynamically significant stenosis. Electronically Signed: Yoni Dooley MD at 22:10 EDT , Treatment and Re-Evaluation :: On repeat evaluation patient states she does have some improvement in her symptoms. CBC was normal white count at 8.8 with a hemoglobin of 14.3. Chemistry studies significant for a sodium of 130 and a bicarb of 19. Her glucose is 220. Her anion gap is normal at 10 with a BUN of 26 and a creatinine of 1.81. It appears the patient has had problems with hyponatremia in the past. She has fluctuated between 130 and 137. Patient was initially given a 500 cc IV fluid bolus. CTA of the head reveals no evidence of aneurysm. I initially ordered another liter of IV fluids, however the patient states that she needs to get home to her family. We discussed increasing fluids at home to include Gatorade 0, Powerade 0, or Pedialyte that would have less sugar in them. I want her against drinking excessive water as this may cause her sodium level to drop further. She voices understanding and agreement. Discharge Plan Triage Chief Complaint: Headache ED Provider: Johanny Irene Dx/Rx/DC Orders Clinical Impression: Headache, Hyponatremia Instructions: ED Headache Unspecified, ED Hyponatremia Prescriptions: No Action loratadine 10 MG tablet 10 mg PO DAILY glimepiride 4 MG tablet 4 mg PO BID lansoprazole 30 MG capsule,delayed release(DR/EC) 30 mg PO DAILY buspirone 7.5 MG tablet 10 mg PO TID Patient Comments: TAKE 2 TABLETS BY MOUTH 3 TIMES A DAY spironolactone 50 MG tablet 50 mg PO DAILY insulin glargine 100 UNITS/ML insulin pen 34 units subcut QHS Patient Comments: 1/2 dosage night before escitalopram oxalate 10 MG tablet 20 mg PO DAILY zolpidem 5 MG tablet 10 mg PO QHS meloxicam 15 MG tablet 15 mg PO DAILY famotidine 20 MG tablet 20 mg PO QHS metoprolol succinate 50 mg Tablet Extended Release 24 Hr 150 mg PO DAILY promethazine 25 mg tablet 25 mg PO TID PRN (Reason: nausea and vomiting) Qty: 14 0RF atorvastatin 10 mg tablet 10 mg PO QHS Patient Comments: TAKE 1 TABLET BY MOUTH DAILY AT BEDTIME. FOR CHOLESTEROL insulin lispro [Humalog KwikPen Insulin] 100 unit/mL insulin pen SUBCUT Patient Comments: SEE ATTACHED SHEET USING SLIDING SCALE diphenhydramine HCl [Allergy (diphenhydramine)] 25 mg tablet 50 mg PO TID PRN (Reason: allergic reaction) Qty: 20 0RF ondansetron 4 mg tablet,disintegrating 4 mg PO Q8H PRN (Reason: nausea and vomiting) Qty: 10 0RF oxycodone-acetaminophen [Percocet] 5-325 mg tablet 1 tab PO Q6H PRN (Reason: pain) 3 Days Qty: 10 0RF carvedilol 25 mg tablet 25 mg PO Q12H Patient Comments: TAKE 1 TABLET BY MOUTH TWICE DAILY WITH MEALS. FOR BLOOD PRESSURE Primary Care Provider: Joaquim Burks Referrals: Joaquim Burks DO [Primary Care Provider] - Keep [facility] appointment Disposition Disposition: Home, Self Care
[2023-01-27 20:43] LABS: Bedside Glucose 224 mg/dL (74-106)
[2023-01-27] MEDS: Ondansetron 4 MG/2 ML Vial IV (20:58)
[2023-01-27] MEDS: Ketorolac 15 MG/ML Vial IV (20:58)
[2023-01-27 21:18] LABS: Absolute Neutrophil Count 5.7 X10^3/uL (2.0-7.7); Basophil# 0.09 X10^3/uL; Eosinophil# 0.12 X10^3/uL; Eosinophils% 1.4 % (0-5); Hematocrit 41.3 % (37-47); Hemoglobin 14.3 g/dL (12.0-15.0); Mean Corp Hgb Conc 34.6 g/dL (32-36); Mean Corpuscular Hgb 30.6 pg (27.0-32.0); Mean Corpuscular Volume 88.4 fL (81-99); Mean Platelet Vol. 11.7 fl (6.2-12.0); Monocyte# 0.72 X10^3/uL; Monocyte% 8.2 % (0-10); NRBC Flagged by Analyzer 0 % (0-5); Neutrophil # 5.66 X10^3/uL (2.7-7.7); Neutrophil % 64.7 % (47-70); Platelet Count 207 K/mm3 (150-450); RBC Distribution Width CV 12.5 % (11.6-14.6); RBC Distribution Width SD 40.9 fl (35.1-43.9); Red Blood Count 4.67 M/mm3 (4.2-5.4); White Blood Count 8.8 K/mm3 (4.4-11.0)
[2023-01-27 21:22] LABS: Anion Gap 10 (5-15); BUN 26 mg/dL (7-18); BUN/Creat Ratio 14.4 RATIO (10-20); Calcium,Total 9.5 mg/dL (8.5-10.1); Chloride 101 mmol/L (98-107); Creatinine, Serum 1.81 mg/dL (0.55-1.02); EST Glomerular Filtration Rate 31 mL/min (>60); Est Glom Filt Rate - Afr Amer 37 mL/min (>60); Estimated Creatinine Clearance 30.86 ml/min; Glucose 220 mg/dL (74-106); Potassium 5.4 mmol/L (3.5-5.1); Sodium Level 130 mmol/L (136-145)
[2023-01-27 22:20] VITALS: BP 135/91; PULSE 75; RESP 16; O2SAT 97
== END 2023-01-27 22:52 | disposition home or self-care (01) ==
PROVIDERS: Emergency Provider Emergency Medicine; PCP Student in an Organized Health Care Education/Training Program; Visit Provider Emergency Medicine
DX: R51.9 Headache, unspecified (principal); Z93.0 Tracheostomy status; J44.9 Chronic obstructive pulmonary disease, unspecified; E11.9 Type 2 diabetes mellitus without complications; Z79.4 Long term (current) use of insulin; E87.1 Hypo-osmolality and hyponatremia; Z87.891 Personal history of nicotine dependence; I10 Essential (primary) hypertension; E78.5 Hyperlipidemia, unspecified; I25.2 Old myocardial infarction; K21.9 Gastro-esophageal reflux disease without esophagitis; F41.8 Other specified anxiety disorders; Z79.899 Other long term (current) drug therapy; Z90.49 Acquired absence of other specified parts of digestive tract
CPT/HCPCS: 70496; 80048; 82962; 85025; 96361; 96374; 96375; 99281; 99282; J7040; Q9967; A4216; J2405

== ENCOUNTER 2023-03-02 21:25 | Emergency (ER) | payer MEDICARE, MEDICAID, SELFPAY ==
[2023-03-02 21:26] VITALS: BP 159/99; PULSE 96; RESP 16; TEMP 36.2; O2SAT 97; BMI 41.4
--- NOTE | 2023-03-02 23:41 | EKG12_ITS ---
Test Reason : N/V Blood Pressure : / mmHG Vent. Rate : 086 BPM Atrial Rate : 086 BPM P-R Int : 160 ms QRS Dur : 086 ms QT Int : 370 ms P-R-T Axes : 024 -25 022 degrees QTc Int : 442 ms Normal sinus rhythm Minimal voltage criteria for LVH, may be normal variant ( R in aVL ) Inferior infarct (cited on or before 14-MAR-2020) Abnormal ECG Confirmed by TIGRE LEPE, EDUARDO ([id number]), copy editor JORGE CASTRO ([id number]) on 03/04/2023 1:56:19 PM Referred By: Confirmed By:EDUARDO LANDEROS MD
--- NOTE | 2023-03-02 23:43 | EX.ED.DYSGE1 ---
HPI History of Present Illness Chief Complaint: Nausea/Vomiting Detail of Chief Complaint: Nausea and vomiting Informant: patient Narrative Narrative: Patient presents with nausea and vomiting x3 days. She has been thrown up about 4-5 times a day and cannot keep fluids down. Patient has Phenergan at home as well as will dance to try on but not get much relief. She does smoke marijuana frequently. Patient also had some discomfort in her throat and was concerned about angioedema given that she has had problems with angioedema in the past and has had a prior tracheostomy from that. Patient denies abdominal pain. She does complain of some dysuria and some urgency. Denies chest pain or shortness of breath. [facility] Medical History (Updated 03/03/23 @ 01:[address] Mj Turner, ) Acute pancreatitis Acute respiratory failure Angioedema Anxiety and depression C. difficile diarrhea COPD (chronic obstructive pulmonary disease) Depression Diabetes Difficulty breathing Former smoker Former tobacco use GERD (gastroesophageal reflux disease) Hiatal hernia Hyperglycemia Hyperlipidemia Hypertension Kidney stones Morbid obesity Myocardial infarct Neck pain SHARMIN (obstructive sleep apnea) Osteoporosis Sleep apnea Substance abuse Tracheostomy dependence Type II diabetes mellitus Upper airway obstruction Home Medications loratadine 10 mg tablet 10 mg PO DAILY allergies 12/16/16 [History Last Taken 08/27/19] glimepiride 4 mg tablet 4 mg PO BID diabetes 05/25/17 [History Last Taken 08/27/19] lansoprazole 30 mg capsule,delayed release 30 mg PO DAILY gerd 07/06/18 [History Last Taken 04/07/20 08:00] buspirone 7.5 mg tablet 10 mg PO TID mental health 02/20/19 [History Last Taken 08/27/19] spironolactone 50 mg tablet 50 mg PO DAILY water pill 02/20/19 [History Last Taken 08/27/19] insulin glargine 100 unit/mL (3 mL) subcutaneous pen 34 units subcut QHS 07/10/19 [History Last Taken 08/26/19] escitalopram oxalate 10 mg tablet 20 mg PO DAILY depression 11/08/19 [History Last Taken Unknown] zolpidem 5 mg tablet 10 mg PO QHS 03/15/20 [History Last Taken Unknown] famotidine 20 mg tablet 20 mg PO QHS 09/21/20 [History Last Taken Unknown] meloxicam 15 mg tablet 15 mg PO DAILY 09/21/20 [History Last Taken Unknown] metoprolol succinate 50 mg tablet,extended release 24 hr 150 mg PO DAILY 01/13/21 [History Last Taken Unknown] promethazine 25 mg tablet 25 mg PO TID PRN nausea and vomiting #14 tabs 08/25/21 [Rx Last Taken Unknown] atorvastatin 10 mg tablet 10 mg PO QHS 09/22/21 [History Last Taken Unknown] diphenhydramine HCl 25 mg tablet (Allergy (diphenhydramine)) 50 mg (2 x 25 mg) PO TID PRN allergic reaction #20 tabs 11/10/21 [Rx Last Taken Unknown] insulin lispro 100 unit/mL subcutaneous pen (Humalog KwikPen (U-100) Insulin) subcut 11/10/21 [History Last Taken Unknown] ondansetron 4 mg disintegrating tablet 4 mg PO Q8H PRN nausea and vomiting #10 tabs 11/10/21 [Rx Last Taken Unknown] oxycodone-acetaminophen 5 mg-325 mg tablet (Percocet) 1 tab PO Q6H PRN pain 3 days #10 tabs 01/04/22 [Rx Last Taken Unknown] carvedilol 25 mg tablet 25 mg PO Q12H 01/27/23 [History Last Taken Unknown] metoclopramide HCl 10 mg tablet (Reglan) 10 mg PO Q6H PRN nausea and vomiting #10 tabs 03/03/23 [Rx Last Taken Unknown] Allergy/AdvReac Type Severity Reaction Status Date / Time bupropion [From Wellbutrin] Allergy Angioedema Verified 03/02/23 21:30 lisinopril Allergy Angioedema Verified 03/02/23 21:30 sulfamethoxazole Allergy Rash Verified 03/02/23 21:30 [From Bactrim] trimethoprim [From Bactrim] Allergy Rash Verified 03/02/23 21:30 aspirin AdvReac Nausea/Vom/ Verified 03/02/23 21:30 Diarrhea hydrocodone [From Vicodin] AdvReac Nausea/Vom/ Verified 03/02/23 21:30 Diarrhea rosuvastatin [From Crestor] AdvReac PT UNSURE Verified 03/02/23 21:30 OF REACTION Surgical History History of cholecystectomy s/p bladder sling S/P laparoscopic cholecystectomy s/p novasure S/P tubal ligation Status post tracheostomy Social History Smoking Status: Former smoker substance use type: does not use ROS ROS ED Review of Systems ROS Unobtainable: other Constitutional Constitutional ED: Reports lethargy; Denies chills, fever(s), sweats or weight loss Eyes Eyes: Denies blurry vision, change in vision or diplopia ENT ENT ED: Denies rhinorrhea or sore throat Cardiovascular Cardiovascular: Denies chest pain, orthopnea or racing heartbeat Respiratory/Chest Respiratory/Chest: Denies cough, dyspnea, dyspnea on exertion, orthopnea or sputum Gastrointestinal Gastrointestinal: Reports nausea and vomiting; Denies abdominal pain or diarrhea Genitourinary Genitourinary ED: Denies dysuria, hematuria or urinary frequency Musculoskeletal Musculoskeletal: Denies arthralgias, back pain, myalgias or neck pain Integumentary Denies abscess, Abrasions or rash Neurologic Neurologic: Denies headache(s) or weakness Psychiatric Psychiatric: Denies anxiety, depression or suicidal thoughts Endocrine Endocrinology: Denies polydipsia, polyphagia or polyuria Hematologic/Lymphatic Hematologic/Lymphatic: Denies easy bleeding, easy bruising or lymphadenopathy Allergic/Immunologic Allergic/Immunologic ED: Denies mouth swelling, tongue swelling or urticaria EXAM Physical Exam Const Vital Signs: 03/02/23 21:26 03/03/23 01:23 Temperature 97.1 F L Temperature Source Temporal Pulse Rate 96 90 Respiratory Rate 16 17 Blood Pressure 159/99 H 139/83 H Blood Pressure Mean 119 Pulse Ox 97 Oxygen Delivery Method Room Air Positive well nourished and well developed General Appearance ED: well developed and NAD HEENT Reports TM's clear and moist mucous membranes normocephalic and atraumatic; Negative for trauma or tenderness Tympanic Membrane ED: Yes TM's clear Eyes PERRL and EOMs intact bilaterally General Eye ED: Negative for pale conjunctiva or scleral icterus Neck no lymphadenopathy, supple and no JVD General: Negative for tenderness Chest Wall inspection of chest normal and palpation of chest normal Chest: Negative for tenderness Resp normal respiratory effort and clear to auscultation bilaterally Effort and Inspection: Negative for respiratory distress or pain with movement Auscultation: Negative for rhonchi, wheezes or diminished lung sounds Cardio regular rate, regular rhythm, S1 normal heart sound, S2 normal heart sound and no murmurs Peripheral Pulses: pulses 2+ throughout GI normal to inspection, nondistended, normoactive bowel sounds, soft to palpation, non-tender, non-distended and no masses Back/Spine no CVA tenderness and no thoracic nor lumbar tenderness Extremity normal to inspection General Extremety ED: Negative for edema General Extremity: Negative for edema Neuro oriented x3, CN's II-XII intact bilaterally, no sensory deficits noted and gait normal Sensorium / Orientation: awake, alert, oriented to person, oriented to place and oriented to time Motor Exam: strength 5/5 throughout and strength abnormal Psych mental status grossly normal Skin no rashes or lesions noted and no wounds MDM MDM MDM Narrative Medical decision making narrative: Patient presents with nausea and vomiting x3 days. Patient does use frequent THC. She does not have any abdominal pain and exam is benign. In the differential would be pancreatitis versus viral gastroenteritis versus hyperemesis related to THC use. IV line established. Patient was medicated with Reglan and given a liter of the same fluid bolus and she had good symptom relief with that. Patient CBC with differential showed a white count 9.5 with hemoglobin of 15 and platelet count of 250. Chemistries unremarkable. LFTs were normal. Troponin was normal at 4. Lipase normal at 51. Urinalysis normal. This point patient will be given a prescription for Reglan. She is advised to follow-up with her primary care physician within next 3 to 5 days. She is advised to discontinue marijuana use. I suspect her symptoms may be related to her marijuana use. Lab Data Attestation: I reviewed the patient's lab results. Labs: Laboratory Results - last 24 hr 03/03/23 03/03/23 00:13 00:30 WBC 9.5 RBC 5.00 Hgb 15.3 H Hct 45.2 MCV 90.4 MCH 30.6 MCHC 33.8 RDW Std Deviation 41.2 RDW Coeff of Cecil 12.4 Plt Count 250 MPV 11.6 Immature Gran % (Auto) 0.700 Neut % (Auto) 54.3 Lymph % (Auto) 33.1 [place] % (Auto) 8.7 Eos % (Auto) 2.3 Baso % (Auto) 0.9 Absolute Neuts (auto) 5.1 Absolute Lymphs (auto) 3.14 Nucleated RBC % 0 Sodium 136 Potassium 3.4 L Chloride 105 Carbon Dioxide 22.0 Anion Gap 9 BUN 19 H Creatinine 1.13 H Estim Creat Clear Calc 49.43 Est GFR (MDRD) Af Amer 64 Est GFR (MDRD) Non-Af 53 L BUN/Creatinine Ratio 16.8 Glucose 73 L Calcium 9.7 Total Bilirubin 0.50 AST 27 ALT 36 Alkaline Phosphatase 97 Troponin I High Sens 4 Total Protein 8.1 Albumin 3.9 Globulin 4.2 Albumin/Globulin Ratio 0.9 Lipase 51 Urine Color Yellow Urine Clarity Clear Urine pH 5.0 Ur Specific [place] 1.020 Urine Protein Negative Urine Glucose (UA) Normal Urine Ketones 5 H Urine Occult Blood 10 H Urine Nitrite Negative Urine Bilirubin Negative Urine Urobilinogen Normal Ur Leukocyte Esterase Negative Urine RBC 0-5 SEEN Urine WBC 0 SEEN Ur Squamous Epith Cells 0-5 SEEN Urine Bacteria 1+ Urine Mucus 0 SEEN EKG Initial EKG: Attestation: I personally reviewed and interpreted this EKG as follows: Comments: Sinus rhythm with a rate of 86 bpm with old inferior infarct noted Prior EKG tracings: available for review Prior: Unchanged Discharge Plan Triage Chief Complaint: Nausea/Vomiting ED Provider: Mj Turner Dx/Rx/DC Orders Clinical Impression: Cannabis use disorder, Vomiting Instructions: ED Diet Vomiting Diarrhea, ED Marijuana Abuse Prescriptions: New metoclopramide HCl [Reglan] 10 mg tablet 10 mg PO Q6H PRN (Reason: nausea and vomiting) Qty: 10 0RF No Action loratadine 10 MG tablet 10 mg PO DAILY glimepiride 4 MG tablet 4 mg PO BID lansoprazole 30 MG capsule,delayed release(DR/EC) 30 mg PO DAILY buspirone 7.5 MG tablet 10 mg PO TID Patient Comments: TAKE 2 TABLETS BY MOUTH 3 TIMES A DAY spironolactone 50 MG tablet 50 mg PO DAILY insulin glargine 100 UNITS/ML insulin pen 34 units subcut QHS Patient Comments: 1/2 dosage night before escitalopram oxalate 10 MG tablet 20 mg PO DAILY zolpidem 5 MG tablet 10 mg PO QHS meloxicam 15 MG tablet 15 mg PO DAILY famotidine 20 MG tablet 20 mg PO QHS metoprolol succinate 50 mg Tablet Extended Release 24 Hr 150 mg PO DAILY promethazine 25 mg tablet 25 mg PO TID PRN (Reason: nausea and vomiting) Qty: 14 0RF atorvastatin 10 mg tablet 10 mg PO QHS Patient Comments: TAKE 1 TABLET BY MOUTH DAILY AT BEDTIME. FOR CHOLESTEROL insulin lispro [Humalog KwikPen Insulin] 100 unit/mL insulin pen SUBCUT Patient Comments: SEE ATTACHED SHEET USING SLIDING SCALE diphenhydramine HCl [Allergy (diphenhydramine)] 25 mg tablet 50 mg PO TID PRN (Reason: allergic reaction) Qty: 20 0RF ondansetron 4 mg tablet,disintegrating 4 mg PO Q8H PRN (Reason: nausea and vomiting) Qty: 10 0RF oxycodone-acetaminophen [Percocet] 5-325 mg tablet 1 tab PO Q6H PRN (Reason: pain) 3 Days Qty: 10 0RF carvedilol 25 mg tablet 25 mg PO Q12H Patient Comments: TAKE 1 TABLET BY MOUTH TWICE DAILY WITH MEALS. FOR BLOOD PRESSURE Primary Care Provider: Joaquim Burks Referrals: Joaquim Burks DO [Primary Care Provider] - 3-5 Days Disposition Disposition: Home, Self Care Discharge Date/Time: 03/03/23 01:47
[2023-03-03] MEDS: 0.9% Normal Saline 1,000 ML 150 ML IV (00:26)
[2023-03-03] MEDS: Metoclopramide 10 MG/2 ML Vial IV (00:32)
[2023-03-03 00:42] LABS: Absolute Lymphocyte Count 3.14 X10^3/uL (0.83-4.51); Absolute Neutrophil Count 5.1 X10^3/uL (2.0-7.7); Basophil# 0.09 X10^3/uL; Basophil% 0.9 % (0-1); Eosinophil# 0.22 X10^3/uL; Eosinophils% 2.3 % (0-5); Hematocrit 45.2 % (37-47); Hemoglobin 15.3 g/dL (12.0-15.0); Lymphocyte # 3.14 X10^3/ul (0.83-4.51); Lymphocyte % 33.1 % (19-41); Mean Corp Hgb Conc 33.8 g/dL (32-36); Mean Corpuscular Hgb 30.6 pg (27.0-32.0); Mean Corpuscular Volume 90.4 fL (81-99); Mean Platelet Vol. 11.6 fl (6.2-12.0); Monocyte# 0.83 X10^3/uL; Monocyte% 8.7 % (0-10); NRBC Flagged by Analyzer 0 % (0-5); Neutrophil # 5.14 X10^3/uL (2.7-7.7); Neutrophil % 54.3 % (47-70); Platelet Count 250 K/mm3 (150-450); RBC Distribution Width CV 12.4 % (11.6-14.6); RBC Distribution Width SD 41.2 fl (35.1-43.9); White Blood Count 9.5 K/mm3 (4.4-11.0)
[2023-03-03 00:42] LABS: Mucous, Urine 0 SEEN /hpf (<or=2+); White Blood Cells 0 SEEN /hpf (0-5)
[2023-03-03 00:43] LABS: Color, Urine Yellow (Yellow); Glucose, Dipstick Normal (Normal); Ketone-Dipstick 5 mg/dl (Negative); Leukocyte Esterase-Dipstick Negative /ul (Negative); Nitrite-Dipstick Negative (Negative); Occult Blood-Urine 10 /ul (Negative); Protein-Dipstick Negative (Negative); Urine Bilirubin Dipstick Negative (Negative); Urine Clarity Clear (Clear); Urine Urobilinogen Normal (Normal)
[2023-03-03 00:50] LABS: Bacteria 1+ /hpf (None Seen); Red Blood Cells-Urine 0-5 SEEN /hpf (0-5); Squamous Epithelial Cells - UA 0-5 SEEN /hpf (5-10)
[2023-03-03 01:03] LABS: ALB/GLOB Ratio 0.9 RATIO (0.9-2.4); AST(SGOT) 27 U/L (15-37); Alanine Aminotransfer ALT/SGPT 36 U/L (13-56); Albumin, Serum 3.9 g/dL (3.2-5.0); Alkaline Phosphatase 97 U/L (45-117); Anion Gap 9 (5-15); BUN 19 mg/dL (7-18); BUN/Creat Ratio 16.8 RATIO (10-20); Calcium,Total 9.7 mg/dL (8.5-10.1); Chloride 105 mmol/L (98-107); Creatinine, Serum 1.13 mg/dL (0.55-1.02); EST Glomerular Filtration Rate 53 mL/min (>60); Est Glom Filt Rate - Afr Amer 64 mL/min (>60); Estimated Creatinine Clearance 49.43 ml/min; Globulin 4.2 g/dL (2.2-4.2); Glucose 73 mg/dL (74-106); Lipase 51 U/L (13-75); Potassium 3.4 mmol/L (3.5-5.1); Protein, Total 8.1 g/dL (6.4-8.2); Sodium Level 136 mmol/L (136-145); Troponin-I HS 4 pg/mL (3.0-54.0)
[2023-03-03 01:23] VITALS: BP 139/83; PULSE 90; RESP 17
== END 2023-03-03 01:47 | disposition home or self-care (01) ==
PROVIDERS: Emergency Provider Emergency Medicine; PCP Student in an Organized Health Care Education/Training Program; Visit Provider Emergency Medicine
DX: R11.2 Nausea with vomiting, unspecified (principal); J44.9 Chronic obstructive pulmonary disease, unspecified; F12.99 Cannabis use, unspecified with unspecified cannabis-induced disorder; E11.9 Type 2 diabetes mellitus without complications; Z79.4 Long term (current) use of insulin; I10 Essential (primary) hypertension; E78.5 Hyperlipidemia, unspecified; Z87.891 Personal history of nicotine dependence; I25.2 Old myocardial infarction; K21.9 Gastro-esophageal reflux disease without esophagitis; F41.8 Other specified anxiety disorders; Z79.899 Other long term (current) drug therapy; Z90.49 Acquired absence of other specified parts of digestive tract
CPT/HCPCS: 80053; 81001; 83690; 84484; 85025; 93005; 96361; 96374; 99285; J7030; A4216

== ENCOUNTER 2023-04-27 18:11 | Emergency (ER) | payer MEDICARE, MEDICAID, SELFPAY ==
[2023-04-27 18:12] VITALS: BP 149/93; PULSE 86; RESP 18; TEMP 36.4; O2SAT 96
--- NOTE | 2023-04-27 20:05 | US_ITS ---
We are attempting to reach an attending provider to discuss findings. An addendum with communication details will be sent when the communication is complete. STUDY: VENOUS DOPPLER ULTRASOUND - LEFT LOWER EXTREMITY REASON FOR EXAM: Female, 58 years old. LEFT LEG PAIN AND SWELLING TECHNIQUE: Ultrasound evaluation of the deep vein system to include dos santos-scale imaging and compression was performed. Dos Santos-scale imaging and Doppler sonographic evaluation, including duplex spectral analysis and qualitative color flow sonography, was performed. COMPARISON: None. FINDINGS: Common Femoral Vein: Normal compression, spontaneity and augmentation. Normal color Doppler. Common Femoral Vein/Greater Saphenous Junction: Normal compression. No internal echoes. Femoral Proximal: Partial compressibility with internal echoes. Femoral Middle: Partial compressibility with internal echoes. Femoral Distal: Partial compressibility with internal echoes. Popliteal Vein: Partial compressibility with internal echoes. Posterior Tibial Vein: Partial compressibility with internal echoes. Peroneal Vein: Partial compressibility with internal echoes. Deep venous thrombosis from the proximal superficial femoral vein into the posterior tibial and peroneal veins. US/Venous Duplex Imag/Limited/Uni IMPRESSION: Deep venous thrombosis from the proximal superficial femoral vein into the calf veins as described. Electronically Signed: Lisa Wei MD at 21:15 EDT ,
--- NOTE | 2023-04-27 20:50 | ED.VIS.LOWEX ---
HPI History of Present Illness Chief Complaint: Lower Extremity Injury Narrative Narrative: Old female presenting with left calf pain for the last few days. She states she was recently ill and bedridden. She does not have any other risk factors for DVT but is concerned for DVT. No chest pain or shortness of breath. No trauma. [facility] Medical History Acute pancreatitis Acute respiratory failure Angioedema Anxiety and depression C. difficile diarrhea COPD (chronic obstructive pulmonary disease) Depression Diabetes Difficulty breathing Former smoker Former tobacco use GERD (gastroesophageal reflux disease) Hiatal hernia Hyperglycemia Hyperlipidemia Hypertension Kidney stones Morbid obesity Myocardial infarct Neck pain SHARMIN (obstructive sleep apnea) Osteoporosis Sleep apnea Substance abuse Tracheostomy dependence Type II diabetes mellitus Upper airway obstruction Home Medications loratadine 10 mg tablet 10 mg PO DAILY allergies 12/16/16 [History Last Taken 08/27/19] glimepiride 4 mg tablet 4 mg PO BID diabetes 05/25/17 [History Last Taken 08/27/19] lansoprazole 30 mg capsule,delayed release 30 mg PO DAILY gerd 07/06/18 [History Last Taken 04/07/20 08:00] buspirone 7.5 mg tablet 10 mg PO TID mental health 02/20/19 [History Last Taken 08/27/19] spironolactone 50 mg tablet 50 mg PO DAILY water pill 02/20/19 [History Last Taken 08/27/19] insulin glargine 100 unit/mL (3 mL) subcutaneous pen 34 units subcut QHS 07/10/19 [History Last Taken 08/26/19] escitalopram oxalate 10 mg tablet 20 mg PO DAILY depression 11/08/19 [History Last Taken Unknown] zolpidem 5 mg tablet 10 mg PO QHS 03/15/20 [History Last Taken Unknown] famotidine 20 mg tablet 20 mg PO QHS 09/21/20 [History Last Taken Unknown] meloxicam 15 mg tablet 15 mg PO DAILY 09/21/20 [History Last Taken Unknown] metoprolol succinate 50 mg tablet,extended release 24 hr 150 mg PO DAILY 01/13/21 [History Last Taken Unknown] promethazine 25 mg tablet 25 mg PO TID PRN nausea and vomiting #14 tabs 08/25/21 [Rx Last Taken Unknown] atorvastatin 10 mg tablet 10 mg PO QHS 09/22/21 [History Last Taken Unknown] diphenhydramine HCl 25 mg tablet (Allergy (diphenhydramine)) 50 mg (2 x 25 mg) PO TID PRN allergic reaction #20 tabs 11/10/21 [Rx Last Taken Unknown] insulin lispro 100 unit/mL subcutaneous pen (Humalog KwikPen (U-100) Insulin) subcut 11/10/21 [History Last Taken Unknown] ondansetron 4 mg disintegrating tablet 4 mg PO Q8H PRN nausea and vomiting #10 tabs 11/10/21 [Rx Last Taken Unknown] oxycodone-acetaminophen 5 mg-325 mg tablet (Percocet) 1 tab PO Q6H PRN pain 3 days #10 tabs 01/04/22 [Rx Last Taken Unknown] carvedilol 25 mg tablet 25 mg PO Q12H 01/27/23 [History Last Taken Unknown] metoclopramide HCl 10 mg tablet (Reglan) 10 mg PO Q6H PRN nausea and vomiting #10 tabs 03/03/23 [Rx Last Taken Unknown] apixaban 5 mg (74 tabs) tablets in a dose pack (Eliquis DVT-PE Treat 30D Start) 5 mg PO BID #74 tabs 04/27/23 [Rx Last Taken Unknown] Allergy/AdvReac Type Severity Reaction Status Date / Time bupropion [From Wellbutrin] Allergy Angioedema Verified 04/27/23 18:12 lisinopril Allergy Angioedema Verified 04/27/23 18:12 sulfamethoxazole Allergy Rash Verified 04/27/23 18:12 [From Bactrim] trimethoprim [From Bactrim] Allergy Rash Verified 04/27/23 18:12 aspirin AdvReac Nausea/Vom/ Verified 04/27/23 18:12 Diarrhea hydrocodone [From Vicodin] AdvReac Nausea/Vom/ Verified 04/27/23 18:12 Diarrhea rosuvastatin [From Crestor] AdvReac PT UNSURE Verified 04/27/23 18:12 OF REACTION Surgical History History of cholecystectomy s/p bladder sling S/P laparoscopic cholecystectomy s/p novasure S/P tubal ligation Status post tracheostomy Social History Smoking Status: Former smoker substance use type: does not use ROS ROS ED Constitutional Constitutional ED: Denies chills, fever(s) or sweats Eyes Eyes: Denies blurry vision or change in vision ENT ENT ED: Denies ear pain or sore throat Cardiovascular Cardiovascular: Denies chest pain, palpitations or racing heartbeat Respiratory/Chest Respiratory/Chest: Denies cough, dyspnea or sputum Gastrointestinal Gastrointestinal: Denies abdominal pain, constipation, diarrhea, nausea or vomiting Genitourinary Genitourinary ED: Denies dysuria, hematuria or urinary frequency Musculoskeletal Musculoskeletal: Reports other Details: Left leg pain and swelling ; Denies arthralgias, myalgias or neck pain Integumentary Denies abscess, Abrasions or rash Neurologic Neurologic: Denies headache(s), paresthesias or weakness Psychiatric Psychiatric: Denies anxiety, depression, suicidal ideation or suicidal thoughts Endocrine Endocrinology: Denies polydipsia or polyuria EXAM Physical Exam Const Vital Signs: 04/27/23 18:12 Temperature 97.5 F L Temperature Source Temporal Pulse Rate 86 Respiratory Rate 18 Blood Pressure 149/93 H Blood Pressure Mean 111 Pulse Ox 96 Oxygen Delivery Method Room Air General Appearance ED: NAD HEENT normocephalic Resp normal respiratory effort and no retractions Auscultation: Negative for rales, rhonchi or wheezes Cardio regular rate and regular rhythm Extremity Extremity Narrative: Tenderness and swelling to the left calf. It is considerably larger than the contralateral leg. No discoloration. Neurovascular intact. Neuro oriented x3 and CN's II-XII intact bilaterally Sensorium / Orientation: alert Psych mental status grossly normal Skin no wounds MDM MDM MDM Narrative Medical decision making narrative: Presenting with left calf pain. Recently she was ill and was bedridden. On examination she does have some swelling of the left calf. DVT study was positive for DVT from the left proximal femoral distally. We discussed this at length. We discussed risk factors and benefits of blood thinners. We will start her on Eliquis. She is given a starter pack. First dose was given in the ED. She is to follow-up with Dr. Roberts and her primary care physician. Impression: 1. DVT left lower extremity Discharge Plan Triage Chief Complaint: Lower Extremity Injury ED Provider: Michael Lopez Dx/Rx/DC Orders Instructions: ED Deep Vein Thrombosis (DVT) Prescriptions: New Eliquis DVT-PE Treat 30D Start 5 mg (74 tabs) tablets,dose pack 5 mg PO BID Qty: 74 0RF No Action loratadine 10 MG tablet 10 mg PO DAILY glimepiride 4 MG tablet 4 mg PO BID lansoprazole 30 MG capsule,delayed release(DR/EC) 30 mg PO DAILY buspirone 7.5 MG tablet 10 mg PO TID Patient Comments: TAKE 2 TABLETS BY MOUTH 3 TIMES A DAY spironolactone 50 MG tablet 50 mg PO DAILY insulin glargine 100 UNITS/ML insulin pen 34 units subcut QHS Patient Comments: 1/2 dosage night before escitalopram oxalate 10 MG tablet 20 mg PO DAILY zolpidem 5 MG tablet 10 mg PO QHS meloxicam 15 MG tablet 15 mg PO DAILY famotidine 20 MG tablet 20 mg PO QHS metoprolol succinate 50 mg Tablet Extended Release 24 Hr 150 mg PO DAILY promethazine 25 mg tablet 25 mg PO TID PRN (Reason: nausea and vomiting) Qty: 14 0RF atorvastatin 10 mg tablet 10 mg PO QHS Patient Comments: TAKE 1 TABLET BY MOUTH DAILY AT BEDTIME. FOR CHOLESTEROL insulin lispro [Humalog KwikPen Insulin] 100 unit/mL insulin pen SUBCUT Patient Comments: SEE ATTACHED SHEET USING SLIDING SCALE diphenhydramine HCl [Allergy (diphenhydramine)] 25 mg tablet 50 mg PO TID PRN (Reason: allergic reaction) Qty: 20 0RF ondansetron 4 mg tablet,disintegrating 4 mg PO Q8H PRN (Reason: nausea and vomiting) Qty: 10 0RF oxycodone-acetaminophen [Percocet] 5-325 mg tablet 1 tab PO Q6H PRN (Reason: pain) 3 Days Qty: 10 0RF carvedilol 25 mg tablet 25 mg PO Q12H Patient Comments: TAKE 1 TABLET BY MOUTH TWICE DAILY WITH MEALS. FOR BLOOD PRESSURE metoclopramide HCl [Reglan] 10 mg tablet 10 mg PO Q6H PRN (Reason: nausea and vomiting) Qty: 10 0RF Primary Care Provider: Joaquim Burks Referrals: Law Roberts MD [Med Staff - Active Staff] - As soon as possible Joaquim Burks DO [Primary Care Provider] - Disposition Disposition: Home, Self Care Discharge Date/Time: 04/27/23 21:01
[2023-04-27] MEDS: APIXABAN 5 MG TABLET 10 MG PO (20:58)
== END 2023-04-27 21:01 | disposition home or self-care (01) ==
PROVIDERS: Emergency Provider Student in an Organized Health Care Education/Training Program; PCP Student in an Organized Health Care Education/Training Program; Visit Provider Student in an Organized Health Care Education/Training Program
DX: I82.412 Acute embolism and thrombosis of left femoral vein (principal); Z93.0 Tracheostomy status; J44.9 Chronic obstructive pulmonary disease, unspecified; E11.9 Type 2 diabetes mellitus without complications; Z79.4 Long term (current) use of insulin; Z87.891 Personal history of nicotine dependence; I10 Essential (primary) hypertension; E78.5 Hyperlipidemia, unspecified; K21.9 Gastro-esophageal reflux disease without esophagitis; F41.8 Other specified anxiety disorders; Z79.899 Other long term (current) drug therapy; I25.2 Old myocardial infarction; Z90.49 Acquired absence of other specified parts of digestive tract
CPT/HCPCS: 93971; 99282

== ENCOUNTER 2023-10-17 16:06 | Emergency (ER) | payer MEDICARE, MEDICAID, SELFPAY ==
[2023-10-17 16:07] VITALS: BP 164/98; PULSE 95; RESP 16; TEMP 36.9; O2SAT 98; BMI 36.3
--- NOTE | 2023-10-17 16:18 | CT_ITS ---
INDICATION: Pain EXAMINATION: CT ABDOMEN AND PELVIS WITHOUT CONTRAST - CT Abdomen And Pelvis W/O Contrast Injection TECHNIQUE: Helically acquired images were obtained of the abdomen and pelvis without oral or IV contrast. A radiation dose optimization technique was used for this scan. IV Contrast dosage and agent: None. Oral contrast: None. COMPARISON: January 04, 2022 chest radiograph. FINDINGS: LOWER CHEST: Lung bases are clear. No cardiomegaly or pericardial effusion. LIVER: Homogeneous. No focal mass. GALLBLADDER AND BILIARY TREE: Cholecystectomy. No intra- or extrahepatic biliary ductal dilation. PANCREAS: No focal cystic or solid mass. SPLEEN: Normal size without focal cystic or solid mass. ADRENAL GLANDS: No nodules. KIDNEYS AND URETERS: Bilateral 2 to 4 mm nonobstructive renal stones. No hydronephrosis or perinephric inflammation. Unremarkable ureters and bladder. PERITONEUM: No ascites or free air. No other fluid collection. BOWEL: No acute gastric finding. No small bowel distention or focal wall thickening. Normal appendix. No acute colonic wall thickening or surrounding inflammation. Distal colonic diverticulosis without evidence of diverticulitis. LYMPH NODES: No enlarged mesenteric or retroperitoneal lymph nodes. VESSELS: Aortic atherosclerosis without ectasia.. URINARY BLADDER: Unremarkable. REPRODUCTIVE ORGANS: Unremarkable uterus. Bilateral tubal ligation clips present. Symmetric unremarkable ovaries.. ABDOMINAL WALL: No discrete abdominal or pelvic wall hernia. BONES: No lytic or blastic abnormality. Small posterior calcified disc protrusions at T12-L1, L1-L2, L5-S1 with up to moderate spinal canal narrowing at L5-S1 CT/Abdomen/Pelvis without Cont IMPRESSION: Bilateral nonobstructive nephrolithiasis. No hydronephrosis or perinephric inflammation. Distal colonic diverticulosis without evidence of diverticulitis. Electronically Signed: Jasen Stevens MD at 18:14 EDT Reading Location ID and State: Pending sale to [facility] / [place] Tel , Service support ,
--- NOTE | 2023-10-17 16:19 | ED.VIS.GI ---
HPI HPI - GI History of Present Illness Chief Complaint: Abd Pain Narrative Narrative: 58-year-old female, past medical history of diabetes, COPD, presents with multiple somatic complaints ranging from nausea and vomiting to epigastric pain and to reported kidney pain. She denies any fevers or chills. She states that she has had longstanding problems for months where she will vomit every other day. While she has seen GI in the past and was diagnosed with a hiatal hernia, she states that she is unable to be scoped because when she was having that performed she vomited. She does admit to smoking marijuana frequently, the last time being yesterday. She presents with continued nausea and vomiting, no diarrhea, last normal bowel movement this morning. She has epigastric pain as well. Past surgical history includes cholecystectomy. No exacerbating or alleviating factors. She states she is unable to keep anything down, but when she does check her blood sugars that are high. [facility] Medical History Acute pancreatitis Acute respiratory failure Angioedema Anxiety and depression C. difficile diarrhea COPD (chronic obstructive pulmonary disease) Depression Diabetes Difficulty breathing Former smoker Former tobacco use GERD (gastroesophageal reflux disease) Hiatal hernia Hyperglycemia Hyperlipidemia Hypertension Kidney stones Morbid obesity Myocardial infarct Neck pain SHARMIN (obstructive sleep apnea) Osteoporosis Sleep apnea Substance abuse Tracheostomy dependence Type II diabetes mellitus Upper airway obstruction Home Medications loratadine 10 mg tablet 10 mg PO DAILY allergies 12/16/16 [History Last Taken 08/27/19] glimepiride 4 mg tablet 4 mg PO BID diabetes 05/25/17 [History Last Taken 08/27/19] buspirone 7.5 mg tablet 10 mg PO TID mental health 02/20/19 [History Last Taken 08/27/19] spironolactone 50 mg tablet 50 mg PO DAILY water pill 02/20/19 [History Last Taken 08/27/19] insulin glargine 100 unit/mL (3 mL) subcutaneous pen 34 units subcut QHS 07/10/19 [History Last Taken 08/26/19] escitalopram oxalate 10 mg tablet 20 mg PO DAILY depression 11/08/19 [History Last Taken Unknown] zolpidem 5 mg tablet 10 mg PO QHS 03/15/20 [History Last Taken Unknown] famotidine 20 mg tablet 20 mg PO QHS 09/21/20 [History Last Taken Unknown] promethazine 25 mg tablet 25 mg PO TID PRN nausea and vomiting #14 tabs 08/25/21 [Rx Last Taken Unknown] atorvastatin 10 mg tablet 10 mg PO QHS 09/22/21 [History Last Taken Unknown] ondansetron 4 mg disintegrating tablet 4 mg PO Q8H PRN nausea and vomiting #10 tabs 11/10/21 [Rx Last Taken Unknown] carvedilol 25 mg tablet 25 mg PO Q12H 01/27/23 [History Last Taken Unknown] apixaban 5 mg (74 tabs) tablets in a dose pack (Eliquis DVT-PE Treat 30D Start) 5 mg PO BID #74 tabs 04/27/23 [Rx Last Taken Unknown] apixaban 5 mg tablet (Eliquis) 5 mg PO BID #60 tabs 05/05/23 [Rx Last Taken Unknown] dulaglutide 3 mg/0.5 mL subcutaneous pen injector (Trulicity) 3 mg subcut QWEEK 05/25/23 [History Last Taken Unknown] omeprazole 40 mg capsule,delayed release 40 mg PO DAILY 05/25/23 [History Last Taken Unknown] ondansetron 4 mg disintegrating tablet 4 mg PO Q6H PRN nausea and vomiting #12 tabs 10/17/23 [Rx Last Taken Unknown] Allergy/AdvReac Type Severity Reaction Status Date / Time bupropion [From Wellbutrin] Allergy Angioedema Verified 10/17/23 16:06 lisinopril Allergy Angioedema Verified 10/17/23 16:06 sulfamethoxazole Allergy Rash Verified 10/17/23 16:06 [From Bactrim] trimethoprim [From Bactrim] Allergy Rash Verified 10/17/23 16:06 aspirin AdvReac Nausea/Vom/ Verified 10/17/23 16:06 Diarrhea hydrocodone [From Vicodin] AdvReac Nausea/Vom/ Verified 10/17/23 16:06 Diarrhea rosuvastatin [From Crestor] AdvReac PT UNSURE Verified 10/17/23 16:06 OF REACTION Family History Other Bleeding disorder CVA (cerebral vascular accident) Diabetes Hypertension Surgical History History of cholecystectomy s/p bladder sling S/P laparoscopic cholecystectomy s/p novasure S/P tubal ligation Status post tracheostomy Social History Smoking Status: Former smoker substance use type: does not use ROS ROS ED ROS Narrative Constitutional: No fever, no chills. HEENT: No sore throat. No neck pain. No loss of vision. No rhinorrhea. Cardiovascular: No chest pain. No palpitations. No pedal edema. Respiratory: No cough, no shortness of breath. Abdominal: Positive abdominal pain. Positive nausea and vomiting. No diarrhea. Genitourinary: No dysuria. No hematuria. Musculoskeletal: No myalgias. No arthralgias. Positive back pain. Neurologic: No headaches. No dizziness. No lightheadedness. Skin: No rash. No change in color. Psychiatric: No depression. No anxiety. EXAM Physical Exam Narrative Exam Narrative: Afebrile. Vital signs noted. HEENT: Normocephalic. Atraumatic. PERRL, EOMI. Neck soft and supple. No point tenderness or step off. Cardiovascular: Regular rate and rhythm. No murmurs, rubs, or gallops appreciated. Respiratory: No tachypnea. Lungs clear to auscultation bilaterally. Gastrointestinal: Abdomen soft, nontender, with normoactive bowel sounds. No rebound or guarding. Neurological: Awake. Alert. Nonfocal, nonlateralizing. Skin: No rash. Normal color. No pallor. Musculoskeletal: No pedal edema. Full range of motion extremities. Const Vital Signs: 10/17/23 16:07 10/17/23 18:23 Temperature 98.4 F Temperature Source Temporal Pulse Rate 95 89 Respiratory Rate 16 18 Blood Pressure 164/98 H 164/86 H Blood Pressure Mean 120 112 Pulse Ox 98 97 Oxygen Delivery Method Room Air Room Air MDM MDM MDM Narrative Medical decision making narrative: I reviewed the prior records, she has had pancreatitis in the past which is in the differential versus hiatal hernia pain versus gastritis. There is lower concern for obstruction/bowel obstruction based on the history and physical because it does not necessarily support this. Also in the differential would be diabetic ketoacidosis versus cyclic vomiting from cannabis use. With concern for dehydration, I will check laboratory work. I do feel that imaging is indicated to help rule out obstruction. She was complaining of kidney pain which for this is the differential into pyelonephritis versus ureterolithiasis. She will be bolused normal saline 1 L intravenously initially, and administer Zofran. Upon repeat examination at approximately 1830, she has not had any vomiting in the ED. Reviewed her laboratory work and she has normal white count at 9.5, hemoglobin slightly hemoconcentrated at 16.2 with hematocrit 47.4, platelet count normal at 270. Sodium slightly low at 134. She was bolused normal saline 1 L intravenously. Potassium normal at 4.0, BUN normal at 13 with creatinine 1.02, no evidence of profound dehydration. Lipase is normal at 57 so I do not feel she has a pancreatitis. Urinalysis is negative for infection on review, negative for ketones as well. CT of the abdomen pelvis radiology report was reviewed and there is no obstruction, no overt diverticulitis, I do not feel antibiotics are indicated. At this point in time, she states she usually gets medication from her primary to take at home but she ran out. I will write her for 12 Zofran ODT's. I do not feel she requires admission at this time. Additionally, she was told to refrain from marijuana because this may be the cause of her nausea and vomiting. Return instructions were reviewed. Disposition is discharged home in stable condition. Return instructions were reviewed. History & Record Review Discussion w/independent historian: Patient Additional record(s) reviewed:: Prior ED visit and Prior labs Lab Data Attestation: I reviewed the patient's lab results. Labs: Laboratory Results - last 24 hr 10/17/23 10/17/23 16:34 18:25 WBC 9.5 RBC 5.42 H Hgb 16.2 H Hct 47.4 H MCV 87.5 MCH 29.9 MCHC 34.2 RDW Std Deviation 41.3 RDW Coeff of Cecil 13.1 Plt Count 270 MPV 10.5 Immature Gran % (Auto) 0.900 Neut % (Auto) 58.2 Lymph % (Auto) 28.9 Walker % (Auto) 8.4 Eos % (Auto) 2.4 Baso % (Auto) 1.2 H Absolute Neuts (auto) 5.5 Absolute Lymphs (auto) 2.75 Nucleated RBC % 0 Sodium 134 L Potassium 4.0 Chloride 104 Carbon Dioxide 23.0 Anion Gap 7 BUN 13 Creatinine 1.02 Estim Creat Clear Calc 70.01 Est GFR (MDRD) Af Amer 71 Est GFR (MDRD) Non-Af 59 L BUN/Creatinine Ratio 12.7 Glucose 119 H Calcium 9.6 Total Bilirubin 0.50 AST 19 ALT 28 Alkaline Phosphatase 126 H Total Protein 7.8 Albumin 3.8 Globulin 4.0 Albumin/Globulin Ratio 1.0 Lipase 57 Urine Color Yellow Urine Clarity Clear Urine pH 5.0 Ur Specific Jasper 1.015 Urine Protein Negative Urine Glucose (UA) Normal Urine Ketones Negative Urine Occult Blood Negative Urine Nitrite Negative Urine Bilirubin Negative Urine Urobilinogen Normal Ur Leukocyte Esterase Negative Radiography Diagnostic Testing: Clinical Impression(s) from Imaging Studies Abdomen/Pelvis CT 10/17/23 16:18 IMPRESSION: Bilateral nonobstructive nephrolithiasis. No hydronephrosis or perinephric inflammation. Distal colonic diverticulosis without evidence of diverticulitis. Electronically Signed: Jasen Stevens MD at 18:14 EDT Reading Location ID and State: [facility] / [place] Tel , Service support , Discharge Plan Triage Chief Complaint: Abd Pain ED Provider: Matheus Sandra Dx/Rx/DC Orders Clinical Impression: Nausea and vomiting, Abdominal pain Instructions: ED Abdominal Pain Unkn Cause Fem, ED Vomiting (Adult) Prescriptions: New ondansetron 4 mg tablet,disintegrating 4 mg PO Q6H PRN (Reason: nausea and vomiting) Qty: 12 0RF No Action Eliquis 5 mg tablet 5 mg PO BID Qty: 60 4RF omeprazole 40 mg capsule,delayed release(DR/EC) 40 mg PO DAILY Trulicity 3 mg/0.5 mL pen injector 3 mg subcut QWEEK loratadine 10 MG tablet 10 mg PO DAILY glimepiride 4 MG tablet 4 mg PO BID buspirone 7.5 MG tablet 10 mg PO TID Patient Comments: TAKE 2 TABLETS BY MOUTH 3 TIMES A DAY spironolactone 50 MG tablet 50 mg PO DAILY insulin glargine 100 UNITS/ML insulin pen 34 units subcut QHS Patient Comments: 1/2 dosage night before escitalopram oxalate 10 MG tablet 20 mg PO DAILY zolpidem 5 MG tablet 10 mg PO QHS famotidine 20 MG tablet 20 mg PO QHS promethazine 25 mg tablet 25 mg PO TID PRN (Reason: nausea and vomiting) Qty: 14 0RF atorvastatin 10 mg tablet 10 mg PO QHS Patient Comments: TAKE 1 TABLET BY MOUTH DAILY AT BEDTIME. FOR CHOLESTEROL ondansetron 4 mg tablet,disintegrating 4 mg PO Q8H PRN (Reason: nausea and vomiting) Qty: 10 0RF carvedilol 25 mg tablet 25 mg PO Q12H Patient Comments: TAKE 1 TABLET BY MOUTH TWICE DAILY WITH MEALS. FOR BLOOD PRESSURE Eliquis DVT-PE Treat 30D Start 5 mg (74 tabs) tablets,dose pack 5 mg PO BID Qty: 74 0RF Hold Instructions: Order Changed Primary Care Provider: Joaquim Burks Referrals: Joaquim Burks DO [Primary Care Provider] - [facility] appointment Disposition Disposition: Home, Self Care
[2023-10-17 16:44] LABS: Absolute Lymphocyte Count 2.75 X10^3/uL (0.83-4.51); Absolute Neutrophil Count 5.5 X10^3/uL (2.0-7.7); Basophil# 0.11 X10^3/uL; Basophil% 1.2 % (0-1); Eosinophil# 0.23 X10^3/uL; Eosinophils% 2.4 % (0-5); Hematocrit 47.4 % (37-47); Hemoglobin 16.2 g/dL (12.0-15.0); Lymphocyte # 2.75 X10^3/ul (0.83-4.51); Lymphocyte % 28.9 % (19-41); Mean Corp Hgb Conc 34.2 g/dL (32-36); Mean Corpuscular Hgb 29.9 pg (27.0-32.0); Mean Corpuscular Volume 87.5 fL (81-99); Mean Platelet Vol. 10.5 fl (6.2-12.0); Monocyte% 8.4 % (0-10); NRBC Flagged by Analyzer 0 % (0-5); Neutrophil # 5.52 X10^3/uL (2.7-7.7); Neutrophil % 58.2 % (47-70); Platelet Count 270 K/mm3 (150-450); RBC Distribution Width CV 13.1 % (11.6-14.6); RBC Distribution Width SD 41.3 fl (35.1-43.9); Red Blood Count 5.42 M/mm3 (4.2-5.4); White Blood Count 9.5 K/mm3 (4.4-11.0)
[2023-10-17] MEDS: Ondansetron 4 MG/2 ML Vial IV (17:01)
[2023-10-17] MEDS: 0.9% Normal Saline (1000mL) 1,000 ML 1000 ML IV (17:01)
[2023-10-17 17:21] LABS: AST(SGOT) 19 U/L (15-37); Alanine Aminotransfer ALT/SGPT 28 U/L (13-56); Albumin, Serum 3.8 g/dL (3.2-5.0); Alkaline Phosphatase 126 U/L (45-117); Anion Gap 7 (5-15); BUN 13 mg/dL (7-18); BUN/Creat Ratio 12.7 RATIO (10-20); Calcium,Total 9.6 mg/dL (8.5-10.1); Chloride 104 mmol/L (98-107); Creatinine, Serum 1.02 mg/dL (0.55-1.02); EST Glomerular Filtration Rate 59 mL/min (>60); Est Glom Filt Rate - Afr Amer 71 mL/min (>60); Estimated Creatinine Clearance 70.01 ml/min; Glucose 119 mg/dL (74-106); Lipase 57 U/L (13-75); Protein, Total 7.8 g/dL (6.4-8.2); Sodium Level 134 mmol/L (136-145)
[2023-10-17 18:23] VITALS: BP 164/86; PULSE 89; RESP 18; O2SAT 97
[2023-10-17 18:29] LABS: Bacteria 0 SEEN /hpf (None Seen); Mucous, Urine 0 SEEN /hpf (<or=2+); Red Blood Cells-Urine 0 SEEN /hpf (0-5); White Blood Cells 0 SEEN /hpf (0-5)
[2023-10-17 18:30] LABS: Color, Urine Yellow (Yellow); Glucose, Dipstick Normal (Normal); Ketone-Dipstick Negative (Negative); Leukocyte Esterase-Dipstick Negative /ul (Negative); Nitrite-Dipstick Negative (Negative); Occult Blood-Urine Negative /ul (Negative); Protein-Dipstick Negative (Negative); Specific Gravity, Urine 1.015 (1.002-1.030); Urine Bilirubin Dipstick Negative (Negative); Urine Clarity Clear (Clear); Urine Urobilinogen Normal (Normal)
[2023-10-17 18:49] LABS: Squamous Epithelial Cells - UA 0-5 SEEN /hpf (5-10)
[2023-10-17 19:14] VITALS: BP 158/77; PULSE 84; RESP 18; TEMP 36.8; O2SAT 99
== END 2023-10-17 19:15 | disposition home or self-care (01) ==
PROVIDERS: Emergency Provider Emergency Medicine; PCP Student in an Organized Health Care Education/Training Program; Visit Provider Emergency Medicine
DX: R10.13 Epigastric pain (principal); J44.9 Chronic obstructive pulmonary disease, unspecified; E11.9 Type 2 diabetes mellitus without complications; Z79.4 Long term (current) use of insulin; R11.2 Nausea with vomiting, unspecified; Z87.891 Personal history of nicotine dependence; Z90.49 Acquired absence of other specified parts of digestive tract; E78.5 Hyperlipidemia, unspecified; I10 Essential (primary) hypertension; I25.2 Old myocardial infarction; Z79.84 Long term (current) use of oral hypoglycemic drugs; F41.8 Other specified anxiety disorders; Z79.899 Other long term (current) drug therapy; K21.9 Gastro-esophageal reflux disease without esophagitis; Z98.51 Tubal ligation status
CPT/HCPCS: 74176; 80053; 81001; 83690; 85025; 96361; 96374; 99283; J2405

== ENCOUNTER → 2023-10-31 | Outpatient (CLI) | payer MEDICARE, MEDICAID, SELFPAY ==
--- NOTE | 2023-10-31 12:46 | VDLE_ITS ---
Reason For Study: Pain LLE RIGHT LEFT CFV is compressible, spontaneous, phasic, CFV is compressible, spontaneous, phasic, competent and demonstrates normal competent, and demonstrates normal augmentation. augmentation. Procedure PTV is compressible. This is a venous duplex using B-mode, color LT PerV is compressible. flow and spectral Doppler. Lt FV, Lt PopV, and Lt T/P Trunk are Exam performed in department. PARTIALLY COMPRESSIBLE with minimal blood A preliminary report was called and/or faxed flow to Shea Massey. Lt SSV prox is NON COMPRESSIBLE. SFJ is competent and measures 0.86cm x 0.82 cm. GSV proximal thigh measures 0.53cm x 0.53 cm. GSV at knee measures 0.55cm x 0.56 cm. GSV is competent throughout. SSV proximal calf is competent and measures 0.21cm x 0.22 cm. VL/Venous Duplex US, Unilateral Interpretation Summary Chronic deep vein thrombosis is noted in the left femoral vein, popliteal vein, tibioperoneal trunk vein. Negative for reflux Ordering Physician: Shea Massey Referring Physician: Joaquim Burks Performed By: Arianna Brown, BERTA, RVT
== END | disposition home or self-care (01) ==
PROVIDERS: PCP Student in an Organized Health Care Education/Training Program; Referring Provider Physician Assistant; Visit Provider Physician Assistant
DX: M79.604 Pain in right leg (principal); I82.402 Acute embolism and thrombosis of unspecified deep veins of left lower extremity
CPT/HCPCS: 93971

== ENCOUNTER 2024-03-27 18:58 | Emergency (ER) | payer MEDICARE, MEDICAID, SELFPAY ==
[2024-03-27 18:59] VITALS: BP 152/97; PULSE 86; RESP 18; TEMP 35.5; O2SAT 97; BMI 34.5
[2024-03-27 20:30] VITALS: BP 140/87; PULSE 75; RESP 18; TEMP 35.5; O2SAT 97
--- NOTE | 2024-03-27 20:30 | ED.RN ---
called for meds to bed. will have pt in waiting room.
--- NOTE | 2024-03-28 02:22 | ED.VIS.DENTA ---
HPI History of Present Illness Chief Complaint: Dental Narrative Narrative: Chief complaint and HPI: Right lower dental pain. 59-year-old female presents for evaluation of dental pain. Patient states she has had right lower dental pain for the past couple days. She states she has been using Tylenol for pain relief. She is on blood thinners due to a known DVT and therefore cannot take ibuprofen. Patient states she has not seen a dentist in years. She denies any fever, chills, headache, URI symptoms, ear pain, difficulty swallowing, swelling of the neck or mouth, facial swelling, change in voice or difficulty speaking. Eating and drinking well. Patient does have a history of angioedema to lisinopril. Per triage note, it states that the patient was complaining of sore throat and swelling however patient denies this to me and states that she is only having dental pain. Review of systems: See HPI Medications: As listed on the chart Allergies: As listed on the chart PFSH: Per chart Vital signs: As listed on the chart. Reviewed. Physical exam: Gen: A&O x3, NAD Head: Normocephalic, atraumatic Eyes: No sclera icterus, conjunctiva clear, PERRL, EOMI, no periorbital edema ENT: TMs clear BL, no facial tenderness or swelling, moist mucous membranes and tolerating secretions, posterior oropharynx unremarkable without swelling or erythema, uvula midline, poor dentition with multiple dental caries and broken teeth, right lower molar with dental carry and broken tooth-tender with palpation-gingivitis but no drainable abscess, no tongue swelling or enlargement, no Zaheer angina Neck: Trachea midline, No JVD, Full ROM, No meningismus, no swelling or tenderness to palpation CV: RRR, no murmurs Resp: Lungs CTA BL, no w/r/c, no stridor, normal phonation per patient Musc: Full ROM, no deformity Skin: Warm, dry, no rash Neuro: Alert, oriented, grossly intact, sensation intact Psych: Cooperative, appropriate mood and affect [facility] Medical History (Updated 03/27/24 @ 20:[address] Ajay Shepard, ) DVT (deep venous thrombosis) Substance abuse Diabetes Osteoporosis Kidney stones Former smoker Sleep apnea Myocardial infarct C. difficile diarrhea Hiatal hernia Hyperglycemia Former tobacco use SHARMIN (obstructive sleep apnea) Morbid obesity Neck pain Difficulty breathing Tracheostomy dependence GERD (gastroesophageal reflux disease) Acute pancreatitis Anxiety and depression COPD (chronic obstructive pulmonary disease) Upper airway obstruction Acute respiratory failure Depression Angioedema Type II diabetes mellitus Hyperlipidemia Hypertension Home Medications ?Medication ?Instructions ?Recorded ?Last Taken ?Type glimepiride 4 mg tablet 4 mg PO BID diabetes 05/25/17 08/27/19 History spironolactone 50 mg tablet 50 mg PO DAILY water pill 02/20/19 08/27/19 History insulin glargine 100 unit/mL (3 34 units subcut QHS 07/10/19 08/26/19 History mL) subcutaneous pen escitalopram oxalate 10 mg tablet 40 mg PO DAILY depression 11/08/19 Unknown History zolpidem 5 mg tablet 10 mg PO QHS 03/15/20 Unknown History famotidine 20 mg tablet 20 mg PO QHS 09/21/20 Unknown History carvedilol 25 mg tablet 25 mg PO Q12H 01/27/23 Unknown History dulaglutide 3 mg/0.5 mL 3 mg subcut QWEEK 05/25/23 Unknown History subcutaneous pen injector (Trulicity) omeprazole 40 mg capsule,delayed 40 mg PO DAILY 05/25/23 Unknown History release ondansetron 4 mg disintegrating 4 mg PO Q6H PRN nausea and 10/17/23 Unknown Rx tablet vomiting #12 tabs rivaroxaban 10 mg tablet (Xarelto) 10 mg PO DAILY #30 tabs 11/04/23 Unknown Rx atorvastatin 20 mg tablet 20 mg PO QHS 11/09/23 Unknown History buspirone 15 mg tablet 15 mg PO TID 11/09/23 Unknown History sucralfate 1 gram tablet 1 g PO QACHS #56 tabs 11/09/23 Unknown Rx amoxicillin 875 mg-potassium 1 tab PO BID 7 days #14 tabs 03/27/24 Unknown Rx clavulanate 125 mg tablet oxycodone-acetaminophen 5 mg-325 1 tab PO Q6H PRN pain 2 days #8 03/27/24 Unknown Rx mg tablet (Percocet) tabs Allergy/AdvReac Type Severity Reaction Status Date / Time bupropion (From Wellbutrin) Allergy Angioedema Verified 03/27/24 18:59 lisinopril Allergy Angioedema Verified 03/27/24 18:59 sulfamethoxazole (From Allergy Rash Verified 03/27/24 18:59 Bactrim) trimethoprim (From Bactrim) Allergy Rash Verified 03/27/24 18:59 aspirin AdvReac Nausea/Vom/ Verified 03/27/24 18:59 Diarrhea hydrocodone (From Vicodin) AdvReac Nausea/Vom/ Verified 03/27/24 18:59 Diarrhea rosuvastatin (From Crestor) AdvReac PT UNSURE Verified 03/27/24 18:59 OF REACTION Family History (Updated 11/09/23 @ 12:57 by Haley Hernandez) Father Diabetes Hypertension Mother Hypertension Surgical History History of cholecystectomy s/p novasure S/P tubal ligation s/p bladder sling S/P laparoscopic cholecystectomy Status post tracheostomy Social History (Updated 11/09/23 @ 12:57 by Haley Hernandez) Smoking Status: Former smoker alcohol intake: never substance use type: marijuana EXAM Physical Exam Const Vital Signs: 03/27/24 18:59 03/27/24 20:30 Temperature 96 F L 96 F L Temperature Source Temporal Pulse Rate 86 75 Respiratory Rate 18 18 Blood Pressure 152/97 H 140/87 H Blood Pressure Mean 115 104 Pulse Ox 97 97 Oxygen Delivery Method Room Air MDM MDM MDM Narrative Medical decision making narrative: 59-year-old female presents for evaluation of right lower dental pain. Onset a couple days ago. Patient has poor dentition and has not seen a dentist in years. See physical exam findings. Patient's pain is likely secondary to dental infection. No obvious abscess to incise and drain. Patient will be placed on antibiotics. Was given Augmentin prescription x 7 days as well as Percocet for pain. She was given resources for outpatient dental clinics. Patient discharged home with her medication therefore she can start her antibiotics now. Return precautions were explained. Patient confirmed understanding the plan. Impression: 1. Right lower molar dental infection Discharge Plan Triage Chief Complaint: Dental Other Complaint: Edema Sore Throat ED Provider: Ajay Shepard Dx/Rx/DC Orders Clinical Impression: Dental infection Instructions: ED Dental Pain Prescriptions: New amoxicillin-pot clavulanate 875-125 mg tablet 1 tab PO BID 7 Days Qty: 14 0RF oxycodone-acetaminophen [Percocet] 5-325 mg tablet 1 tab PO Q6H PRN (Reason: pain) 2 Days Qty: 8 0RF No Action omeprazole 40 mg capsule,delayed release(DR/EC) 40 mg PO DAILY Trulicity 3 mg/0.5 mL pen injector 3 mg subcut QWEEK atorvastatin 20 mg tablet 20 mg PO QHS buspirone 15 mg tablet 15 mg PO TID sucralfate 1 gram tablet 1 g PO QACHS Qty: 56 1RF Rx Instructions: Take an hour before meals and at bedtime glimepiride 4 MG tablet 4 mg PO BID spironolactone 50 MG tablet 50 mg PO DAILY insulin glargine 100 UNITS/ML insulin pen 34 units subcut QHS Patient Comments: 1/2 dosage night before escitalopram oxalate 10 MG tablet 40 mg PO DAILY zolpidem 5 MG tablet 10 mg PO QHS famotidine 20 MG tablet 20 mg PO QHS carvedilol 25 mg tablet 25 mg PO Q12H Patient Comments: TAKE 1 TABLET BY MOUTH TWICE DAILY WITH MEALS. FOR BLOOD PRESSURE ondansetron 4 mg tablet,disintegrating 4 mg PO Q6H PRN (Reason: nausea and vomiting) Qty: 12 0RF Xarelto 10 mg tablet 10 mg PO DAILY Qty: 30 5RF Primary Care Provider: Joaquim Burks Referrals: Joaquim Burks DO [Primary Care Provider] - 3-5 Days Activity Restrictions/Additional Instructions: Follow-up with one of the dentist provided to you Print Language: Polish Disposition Disposition: Home, Self Care Discharge Date/Time: 03/27/24 20:38
== END 2024-03-27 20:38 | disposition home or self-care (01) ==
PROVIDERS: Emergency Provider Surgery; PCP Student in an Organized Health Care Education/Training Program; Visit Provider Surgery
DX: E11.638 Type 2 diabetes mellitus with other oral complications (principal); Z93.0 Tracheostomy status; J44.9 Chronic obstructive pulmonary disease, unspecified; Z79.4 Long term (current) use of insulin; I10 Essential (primary) hypertension; Z86.718 Personal history of other venous thrombosis and embolism; E78.5 Hyperlipidemia, unspecified; Z87.891 Personal history of nicotine dependence; Z79.01 Long term (current) use of anticoagulants; I25.2 Old myocardial infarction; Z79.84 Long term (current) use of oral hypoglycemic drugs; Z79.899 Other long term (current) drug therapy; F32.A Depression, unspecified; K21.9 Gastro-esophageal reflux disease without esophagitis; Z79.85 Long-term (current) use of injectable non-insulin antidiabetic drugs; Z90.49 Acquired absence of other specified parts of digestive tract; Z98.51 Tubal ligation status
CPT/HCPCS: 99283

== ENCOUNTER → 2024-05-23 | Outpatient (CLI) | payer MEDICARE, MEDICAID, SELFPAY ==
--- NOTE | 2024-05-23 13:41 | VDLE_ITS ---
Reason For Study: LLE Swelling RIGHT LEFT FV is compressible, spontaneous, phasic, GSV is normal. competent and demonstrates normal CFV is compressible, spontaneous, phasic, augmentation. competent, and demonstrates normal Procedure augmentation. This is a venous duplex using B-mode, color FV is compressible, spontaneous, phasic, flow and spectral Doppler. competent and demonstrates normal Exam performed in department. augmentation. The exam was diagnostic. Pop V is PARTIALLY COMPRESSIBLE with intraluminal echoes. Flow is noted in color doppler with normal augmentation in pulsed wave doppler. Finding is consistent with CHRONIC DVT. T/P Trunk is PARTIALLY COMPRESSIBLE with intraluminal echoes. Flow is noted in color doppler. Finding is consistent with CHRONIC DVT. PTV is compressible. LT PerV is compressible. VL/Venous Duplex US, Unilateral Interpretation Summary Chronic deep vein thrombosis is noted in the left popliteal vein, tibioperoneal trunk vein Ordering Physician: Shea Massey Referring Physician: Joaquim Burks Performed By: Carlo Hurd RVT
== END | disposition home or self-care (01) ==
LOC: CVS 13:41
PROVIDERS: PCP Student in an Organized Health Care Education/Training Program; Referring Provider Physician Assistant; Visit Provider Physician Assistant
DX: M79.605 Pain in left leg (principal); I82.402 Acute embolism and thrombosis of unspecified deep veins of left lower extremity; M79.89 Other specified soft tissue disorders
CPT/HCPCS: 93971

== ENCOUNTER 2024-09-18 19:40 | Emergency (ER) | payer MEDICARE, MEDICAID, SELFPAY ==
[2024-09-18 19:41] VITALS: BP 157/94; PULSE 102; RESP 18; TEMP 36.4; O2SAT 100; BMI 35.9
[2024-09-18 19:45] VITALS: BP 157/94; PULSE 102; RESP 19; TEMP 36.4; O2SAT 100
--- NOTE | 2024-09-18 20:27 | EKG12_ITS ---
Test Reason : DYSRHYTHMIA Blood Pressure : */* mmHG Vent. Rate : 89 BPM Atrial Rate : 89 BPM P-R Int : 172 ms QRS Dur : 90 ms QT Int : 380 ms P-R-T Axes : 42 -9 45 degrees QTcB Int : 462 ms Normal sinus rhythm Inferior infarct (cited on or before 14-Mar-2020) Abnormal ECG Confirmed by TIGRE LEPE, EDUARDO ([id number]), development editor JORGE CASTRO ([id number]) on 09/19/2024 8:32:24 AM Referred By: TB Confirmed By: EDUARDO LANDEROS MD
[2024-09-18 20:45] VITALS: BP 157/94; PULSE 86; RESP 14; TEMP 36.4; O2SAT 96
[2024-09-18] MEDS: 0.9% Normal Saline (1000mL) 1,000 ML 999 ML IV (20:49)
[2024-09-18 21:06] LABS: Absolute Lymphocyte Count 2.06 X10^3/uL (0.83-4.51); Absolute Neutrophil Count 4.5 X10^3/uL (2.0-7.7); Basophil# 0.09 X10^3/uL; Basophil% 1.1 % (0-1); Eosinophil# 0.37 X10^3/uL; Eosinophils% 4.6 % (0-5); Hematocrit 40.6 % (37-47); Hemoglobin 13.8 g/dL (12.0-15.0); Lymphocyte # 2.06 X10^3/ul (0.83-4.51); Lymphocyte % 25.5 % (19-41); Mean Corpuscular Hgb 30.6 pg (27.0-32.0); Mean Platelet Vol. 10.5 fl (6.2-12.0); Monocyte% 12.4 % (0-10); NRBC Flagged by Analyzer 0 % (0-5); Neutrophil # 4.51 X10^3/uL (2.7-7.7); Neutrophil % 55.9 % (47-70); Platelet Count 247 K/mm3 (150-450); RBC Distribution Width CV 13.7 % (11.6-14.6); RBC Distribution Width SD 45.6 fl (35.1-43.9); Red Blood Count 4.51 M/mm3 (4.2-5.4); White Blood Count 8.1 K/mm3 (4.4-11.0)
--- NOTE | 2024-09-18 21:10 | RAD_ITS ---
PROCEDURE: CHEST PA AND LATERAL 09/18/2024 REASON FOR EXAM: COUGH TECHNIQUE: Frontal and lateral views of the chest. COMPARISON: Chest x-ray dated 01/04/2022. FINDINGS: The heart is normal in size. No focal infiltrate or consolidation is seen within the lungs. No pneumothorax. No acute osseous abnormality seen. Degenerative changes seen within the spine. RAD/Chest PA and Lateral IMPRESSION: No focal infiltrate or consolidation is seen within the lungs. Reading Location: [id number]
[2024-09-18 21:36] LABS: Anion Gap 12 (5-15); BUN 8 mg/dL (4-19); BUN/Creat Ratio 9.8 RATIO (10-20); Calcium,Total 9.3 mg/dL (7.6-11.0); Carbon Dioxide 20.8 mmol/L (21.0-32.0); Chloride 103 mmol/L (98-108); Creatinine, Serum 0.85 mg/dL (0.70-1.20); EST Glomerular Filtration Rate 79 (>60); Estimated Creatinine Clearance 82.58 ml/min (50-250); Glucose 117 mg/dL (70-99); Potassium 3.9 mmol/L (3.3-5.1); Sodium Level 136 mmol/L (133-145); Troponin T High Sensitivity < 6 ng/L (<=14)
[2024-09-18 21:40] VITALS: BP 119/72; PULSE 82; O2SAT 96
[2024-09-18 22:10] VITALS: O2SAT 100
[2024-09-18 23:00] VITALS: BP 136/93; PULSE 86; RESP 18; O2SAT 96
[2024-09-18 23:18] LABS: Troponin T High Sens 2 HR 11 ng/L (<=14)
--- NOTE | 2024-09-18 23:39 | EX.ED.DYSGE1 ---
HPI History of Present Illness Chief Complaint: Dizziness Narrative Narrative: Patient is a 59-year-old female with a past medical history of substance abuse, diabetes, SHARMIN, GERD, type 2 diabetes, depression, hypertension, hyperlipidemia who presents to the emergency department chief complaint of cough, congestion, sore throat, diffuse bodyaches and not feeling well. According the patient she was recently around her grandchild who is also ill and approximately 2 days later is when she started get sick. She states that she became sick around Tuesday afternoon. Patient states that things are not getting better therefore she came here for further evaluation management. Patient states that she did not call her physician. In the triage note it states that she was dizzy I clarified with the patient she states that she is not dizzy she is lightheaded. PFSH PFSH Medical History DVT (deep venous thrombosis) Substance abuse Diabetes Osteoporosis Kidney stones Former smoker Sleep apnea Myocardial infarct C. difficile diarrhea Hiatal hernia Hyperglycemia Former tobacco use SHARMIN (obstructive sleep apnea) Morbid obesity Neck pain Difficulty breathing Tracheostomy dependence GERD (gastroesophageal reflux disease) Acute pancreatitis Anxiety and depression COPD (chronic obstructive pulmonary disease) Upper airway obstruction Acute respiratory failure Depression Angioedema Type II diabetes mellitus Hyperlipidemia Hypertension Home Medications ?Medication ?Instructions ?Recorded ?Last Taken ?Type glimepiride 4 mg tablet 4 mg PO BID diabetes 05/25/17 08/27/19 History spironolactone 50 mg tablet 50 mg PO DAILY water pill 02/20/19 08/27/19 History insulin glargine 100 unit/mL (3 34 units subcut QHS 07/10/19 08/26/19 History mL) subcutaneous pen escitalopram oxalate 10 mg tablet 40 mg PO DAILY depression 11/08/19 Unknown History zolpidem 5 mg tablet 10 mg PO QHS 03/15/20 Unknown History famotidine 20 mg tablet 20 mg PO QHS 09/21/20 Unknown History carvedilol 25 mg tablet 25 mg PO Q12H 01/27/23 Unknown History dulaglutide 3 mg/0.5 mL 3 mg subcut QWEEK 05/25/23 Unknown History subcutaneous pen injector (Trulicity) omeprazole 40 mg capsule,delayed 40 mg PO DAILY 05/25/23 Unknown History release ondansetron 4 mg disintegrating 4 mg PO Q6H PRN nausea and 10/17/23 Unknown Rx tablet vomiting #12 tabs atorvastatin 20 mg tablet 20 mg PO QHS 11/09/23 Unknown History buspirone 15 mg tablet 15 mg PO TID 11/09/23 Unknown History Allergy/AdvReac Type Severity Reaction Status Date / Time bupropion (From Wellbutrin) Allergy Angioedema Verified 09/18/24 19:45 lisinopril Allergy Angioedema Verified 09/18/24 19:45 sulfamethoxazole (From Allergy Rash Verified 09/18/24 19:45 Bactrim) trimethoprim (From Bactrim) Allergy Rash Verified 09/18/24 19:45 aspirin AdvReac Nausea/Vom/ Verified 09/18/24 19:45 Diarrhea hydrocodone (From Vicodin) AdvReac Nausea/Vom/ Verified 09/18/24 19:45 Diarrhea rosuvastatin (From Crestor) AdvReac PT UNSURE Verified 09/18/24 19:45 OF REACTION Family History Father Diabetes Hypertension Mother Hypertension Surgical History History of cholecystectomy s/p novasure S/P tubal ligation s/p bladder sling S/P laparoscopic cholecystectomy Status post tracheostomy Social History Smoking Status: Former smoker alcohol intake: never substance use type: marijuana ROS ROS ED ROS Narrative Constitutional: Complains of chills whole body aches, lightheadedness denies dizziness Eyes, ears, nose, throat: Complaint sore throat denies change in vision double vision blurry vision Cardiovascular: Denies chest pain or palpitations Respiratory: Complains cough Abdomen: Denies abdominal pain nausea vomit diarrhea : Denies urinary symptoms Neurological: Denies numbness, weakness, tingling Musculoskeletal: Denies back pain Skin: Denies rashes or lesions EXAM Physical Exam Narrative Exam Narrative: General: Patient was lying in bed rest comfortably did not appear to be in acute distress Head: Atraumatic, normocephalic Eyes, ears, nose throat: PERRL bilateral, EOMI bilateral, no conjunctival injection noted, mild posterior pharynx erythema noted, uvula midline, no posterior pharynx exudates noted Neck: Soft, supple, trach midline Cardiovascular: Regular rate and rhythm no murmurs gallops rubs noted Respiratory: Clear to auscultation bilaterally Abdomen: Soft, nondistended, nontender to palpation Extremities: +5/5 strength noted in the bilateral upper and lower extremities, radial pulses +2/4 in the bilateral extremities, no pedal edema on exam Neurological: Patient following commands knew that she was at [facility] year is 2024. NIH of 0 GCS 15 Skin: Warm, dry, tact no rashes or lesions noted Const Vital Signs: 09/18/24 19:41 09/18/24 19:45 09/18/24 20:30 Temperature 97.5 F L 97.5 F L Temperature Source Oral Oral Pulse Rate 102 H 102 H Respiratory Rate 18 19 H Blood Pressure 157/94 H 157/94 H Blood Pressure Mean 115 115 Pulse Ox 100 100 Oxygen Delivery Method Room Air Room Air Room Air 09/18/24 20:45 09/18/24 21:40 09/18/24 23:00 Temperature 97.5 F L Temperature Source Oral Pulse Rate 86 82 86 Respiratory Rate 14 18 Blood Pressure 157/94 H 119/72 136/93 H Blood Pressure Mean 115 87 107 Pulse Ox 96 96 96 Oxygen Delivery Method Room Air Room Air Room Air MDM MDM MDM Narrative Medical decision making narrative: Patient is a 59-year-old female who presented to the emergency department chief complaint of diffuse bodyaches, sore throat, chills after being exposed to her grandchild who is ill as well. On the differential diagnose includes Melamin to upper respiratory infection secondary viral etiology, pneumonia. Once workup is obtained reviewed she will be reevaluated. Patient be given IV fluids. Patient CBC reviewed showed no evidence leukocytosis white blood count normal at 8.1, hemoglobin 13.8, plate count of 247. Patient sodium normal 136, potassium normal 3.9, creatinine was 0.85. Patient's troponin was less than 6 with a delta troponin 11. Patient's EKG reviewed and showed sinus rhythm with a rate of 89 bpm. Patient's chest x-ray reviewed by myself and by radiology which showed no acute cardiopulmonary processes. Patient tested negative for COVID flu RSV. Patient ambulated here in the emergency department and had no evidence hypoxia. On reevaluation the patient she is feeling much improved she would like to go home at this point time. Patient is advised to continue supportive care and follow-up with her primary care physician outpatient setting. She is encouraged return with worsening symptoms or concerns. She is agreeable this plan all question concerns answered she was discharged home in stable condition. Lab Data Labs: Laboratory Results - last 24 hr 09/18/24 09/18/24 20:45 22:40 WBC 8.1 RBC 4.51 Hgb 13.8 Hct 40.6 MCV 90.0 MCH 30.6 MCHC 34.0 RDW Std Deviation 45.6 H RDW Coeff of Cecil 13.7 Plt Count 247 MPV 10.5 Immature Gran % (Auto) 0.500 Neut % (Auto) 55.9 Lymph % (Auto) 25.5 [place] % (Auto) 12.4 H Eos % (Auto) 4.6 Baso % (Auto) 1.1 H Absolute Neuts (auto) 4.5 Absolute Lymphs (auto) 2.06 Nucleated RBC % 0 Sodium 136 Potassium 3.9 Chloride 103 Carbon Dioxide 20.8 L Anion Gap 12 BUN 8 Creatinine 0.85 Estim Creat Clear Calc 82.58 Est GFR (MDRD) Non-Af 79 BUN/Creatinine Ratio 9.8 L Glucose 117 H Calcium 9.3 Troponin T High Sens < 6 Troponin T Hi Sens 2 Hr 11 Radiography Diagnostic Testing: Clinical Impression(s) from Imaging Studies Chest X-Ray 09/18/24 21:10 IMPRESSION: No focal infiltrate or consolidation is seen within the lungs. Reading Location: [facility] Discharge Plan Triage Chief Complaint: Dizziness Other Complaint: General Illness ED Provider: Rafi Valero Dx/Rx/DC Orders Clinical Impression: Viral upper respiratory infection Prescriptions: No Action omeprazole 40 mg capsule,delayed release(DR/EC) 40 mg PO DAILY Trulicity 3 mg/0.5 mL pen injector 3 mg subcut QWEEK atorvastatin 20 mg tablet 20 mg PO QHS buspirone 15 mg tablet 15 mg PO TID glimepiride 4 MG tablet 4 mg PO BID spironolactone 50 MG tablet 50 mg PO DAILY insulin glargine 100 UNITS/ML insulin pen 34 units subcut QHS Patient Comments: 1/2 dosage night before escitalopram oxalate 10 MG tablet 40 mg PO DAILY zolpidem 5 MG tablet 10 mg PO QHS famotidine 20 MG tablet 20 mg PO QHS carvedilol 25 mg tablet 25 mg PO Q12H Patient Comments: TAKE 1 TABLET BY MOUTH TWICE DAILY WITH MEALS. FOR BLOOD PRESSURE ondansetron 4 mg tablet,disintegrating 4 mg PO Q6H PRN (Reason: nausea and vomiting) Qty: 12 0RF Primary Care Provider: Joaquim Burks Referrals: Joaquim Burks DO [Primary Care Provider] - Activity Restrictions/Additional Instructions: Follow-up with your doctor in outpatient setting Ensure you are hydrating adequately with water. Rotate Tylenol and ibuprofen [id number] when you do this you can take something every 3 hours. Max dose of Tylenol 4000 mg max dose of ibuprofen 3200 mg. Return with any other concerns or worsening symptoms Print Language: Spanish Disposition Disposition: Home, Self Care
[2024-09-19 00:08] VITALS: BP 152/96; PULSE 85; RESP 16; O2SAT 99
== END 2024-09-19 00:08 | disposition home or self-care (01) ==
PROVIDERS: Emergency Provider Emergency Medicine; PCP Student in an Organized Health Care Education/Training Program; Visit Provider Emergency Medicine
DX: R42 Dizziness and giddiness (principal); J44.9 Chronic obstructive pulmonary disease, unspecified; E11.9 Type 2 diabetes mellitus without complications; Z79.4 Long term (current) use of insulin; J06.9 Acute upper respiratory infection, unspecified; I10 Essential (primary) hypertension; E78.5 Hyperlipidemia, unspecified; Z87.891 Personal history of nicotine dependence; I25.2 Old myocardial infarction; Z79.84 Long term (current) use of oral hypoglycemic drugs; Z79.899 Other long term (current) drug therapy; F41.8 Other specified anxiety disorders; K21.9 Gastro-esophageal reflux disease without esophagitis; Z79.85 Long-term (current) use of injectable non-insulin antidiabetic drugs; Z90.49 Acquired absence of other specified parts of digestive tract; Z98.51 Tubal ligation status
CPT/HCPCS: 71046; 80048; 84484; 85025; 87631; 87651; 93005; 96360; 99285; A4216

== ENCOUNTER 2024-11-23 21:13 | Emergency (ER) | payer MEDICARE, MEDICAID, SELFPAY ==
[2024-11-23 21:14] VITALS: BP 165/109; PULSE 88; RESP 18; TEMP 36.6; O2SAT 99; BMI 34.4
--- NOTE | 2024-11-23 21:29 | EX.ED.GENINJ ---
HPI History of Present Illness Chief Complaint: Bite Informant: patient Onset/Context/Timing Onset: Today Mechanism/Context: Incised (Cat bite) Quality of Pain: Burning Location: Right little finger Worsened by: Nothing Relieved by: Nothing Associated Symptoms Associated Symptoms: Negative for Parasthesias, Weakness, Loss of function, Inability to ambulate or Loss of consciousness Narrative Narrative: Patient presents with laceration to her right little finger that occurred today. Patient states her cat bit her and when her cat bit her she tried to pull her hand away. Patient states the tooth cut her finger. Patient also admits to other puncture wounds and scratches on her legs. Patient is unsure of her last tetanus. Patient denies any paresthesias or weakness. Patient denies any other injuries. Patient states the bleeding has been persistent. Tetanus Immunization: Unknown [facility] Medical History DVT (deep venous thrombosis) Substance abuse Diabetes Osteoporosis Kidney stones Former smoker Sleep apnea Myocardial infarct C. difficile diarrhea Hiatal hernia Hyperglycemia Former tobacco use SHARMIN (obstructive sleep apnea) Morbid obesity Neck pain Difficulty breathing Tracheostomy dependence GERD (gastroesophageal reflux disease) Acute pancreatitis Anxiety and depression COPD (chronic obstructive pulmonary disease) Upper airway obstruction Acute respiratory failure Depression Angioedema Type II diabetes mellitus Hyperlipidemia Hypertension Home Medications ?Medication ?Instructions ?Recorded ?Last Taken ?Type glimepiride 4 mg tablet 4 mg PO BID diabetes 05/25/17 08/27/19 History spironolactone 50 mg tablet 50 mg PO DAILY water pill 02/20/19 08/27/19 History insulin glargine 100 unit/mL (3 34 units subcut QHS 07/10/19 08/26/19 History mL) subcutaneous pen escitalopram oxalate 10 mg tablet 40 mg PO DAILY depression 11/08/19 Unknown History zolpidem 5 mg tablet 10 mg PO QHS 03/15/20 Unknown History famotidine 20 mg tablet 20 mg PO QHS 09/21/20 Unknown History carvedilol 25 mg tablet 25 mg PO Q12H 01/27/23 Unknown History dulaglutide 3 mg/0.5 mL 3 mg subcut QWEEK 05/25/23 Unknown History subcutaneous pen injector (Trulicity) omeprazole 40 mg capsule,delayed 40 mg PO DAILY 05/25/23 Unknown History release ondansetron 4 mg disintegrating 4 mg PO Q6H PRN nausea and 10/17/23 Unknown Rx tablet vomiting #12 tabs atorvastatin 20 mg tablet 20 mg PO QHS 11/09/23 Unknown History buspirone 15 mg tablet 15 mg PO TID 11/09/23 Unknown History amoxicillin 875 mg-potassium 875 mg PO Q12H #20 TABLETS 11/23/24 Unknown Rx clavulanate 125 mg tablet Allergy/AdvReac Type Severity Reaction Status Date / Time bupropion (From Wellbutrin) Allergy Angioedema Verified 11/23/24 21:14 lisinopril Allergy Angioedema Verified 11/23/24 21:14 sulfamethoxazole (From Allergy Rash Verified 11/23/24 21:14 Bactrim) trimethoprim (From Bactrim) Allergy Rash Verified 11/23/24 21:14 aspirin AdvReac Nausea/Vom/ Verified 11/23/24 21:14 Diarrhea hydrocodone (From Vicodin) AdvReac Nausea/Vom/ Verified 11/23/24 21:14 Diarrhea rosuvastatin (From Crestor) AdvReac PT UNSURE Verified 11/23/24 21:14 OF REACTION Family History Father Diabetes Hypertension Mother Hypertension Surgical History History of cholecystectomy s/p novasure S/P tubal ligation s/p bladder sling S/P laparoscopic cholecystectomy Status post tracheostomy Social History Smoking Status: Former smoker alcohol intake: never substance use type: marijuana ROS ROS ED Constitutional Constitutional ED: Denies chills or fever(s) Eyes Eyes: Denies blurry vision or change in vision ENT ENT ED: Denies rhinorrhea or sore throat Cardiovascular Cardiovascular: Denies chest pain or palpitations Respiratory/Chest Respiratory/Chest: Denies cough or dyspnea Gastrointestinal Gastrointestinal: Denies nausea or vomiting Genitourinary Genitourinary ED: Denies dysuria or hematuria Musculoskeletal Musculoskeletal: Denies back pain or neck pain Integumentary Denies abscess or rash Neurologic Neurologic: Denies headache(s) or weakness Allergic/Immunologic Allergic/Immunologic ED: Denies mouth swelling or urticaria EXAM Physical Exam Const Vital Signs: 11/23/24 21:14 Temperature 97.9 F Temperature Source Temporal Pulse Rate 88 Respiratory Rate 18 Blood Pressure 165/109 H Blood Pressure Mean 127 Pulse Ox 99 Oxygen Delivery Method Room Air Positive well nourished and well developed General Appearance ED: well developed and NAD HEENT atraumatic Neck full ROM Extremity Extremity Narrative: There is a 2 cm full-thickness linear laceration on the palmar aspect of the right little finger. There is moderate gapping of the wound margins. There is no involvement of the flexor tendon or tendon sheath. Strength is 5/5 in flexion and extension of the MP, PIP, and DIP joints. Sensation was intact to light touch in all digits. Capillary refill was less than 2 seconds in all digits. There are multiple other superficial abrasions and puncture wounds over the lower extremities. There is no surrounding erythema. Neuro oriented x3, CN's II-XII intact bilaterally, moves all extremities, no focal motor deficits and no sensory deficits noted Theo Coma Scale: document GCS findings Spontaneous Obeys Commands Oriented 15 Sensorium / Orientation: alert Motor Exam: strength 5/5 throughout Psych mental status grossly normal and thought process normal MDM MDM MDM Narrative Medical decision making narrative: Patient was given a tetanus booster. Patient was given a dose of Augmentin. The wound was cleaned and irrigated with copious amounts of normal saline. The wound was anesthetized with 1% plain lidocaine via digital block. The wound was closed with 4 simple interrupted #4-0 nylon sutures under sterile technique. Patient tolerated the procedure well. Bacitracin dressing was applied. Patient was instructed to keep the wound clean and dry. Patient was given a prescription for Augmentin. Patient was instructed to follow-up with her primary care physician in 3 to 5 days for wound recheck and 7 days for suture removal. Patient was instructed to return if worse in any way. Patient understood and was agreeable with the plan. All questions were answered. Discharge Plan Triage Chief Complaint: Bite Other Complaint: Laceration ED Provider: Law Rizzo Dx/Rx/DC Orders Clinical Impression: Bite from cat, Laceration of right little finger w/o foreign body w/o damage to nail Instructions: ED Cat Bite, ED Laceration, Hand: All Closures Prescriptions: New amoxicillin-pot clavulanate 875-125 mg tablet 875 mg PO Q12H Qty: 20 0RF No Action omeprazole 40 mg capsule,delayed release(DR/EC) 40 mg PO DAILY Trulicity 3 mg/0.5 mL pen injector 3 mg subcut QWEEK atorvastatin 20 mg tablet 20 mg PO QHS buspirone 15 mg tablet 15 mg PO TID glimepiride 4 MG tablet 4 mg PO BID spironolactone 50 MG tablet 50 mg PO DAILY insulin glargine 100 UNITS/ML insulin pen 34 units subcut QHS Patient Comments: 1/2 dosage night before escitalopram oxalate 10 MG tablet 40 mg PO DAILY zolpidem 5 MG tablet 10 mg PO QHS famotidine 20 MG tablet 20 mg PO QHS carvedilol 25 mg tablet 25 mg PO Q12H Patient Comments: TAKE 1 TABLET BY MOUTH TWICE DAILY WITH MEALS. FOR BLOOD PRESSURE ondansetron 4 mg tablet,disintegrating 4 mg PO Q6H PRN (Reason: nausea and vomiting) Qty: 12 0RF Primary Care Provider: Joaquim Burks Referrals: Joaquim Burks DO [Primary Care Provider] - Activity Restrictions/Additional Instructions: Keep your wound clean and dry. Return to the emergency department if there is diffuse swelling of your finger, pain with extension of your finger, or any pain extending into the palm of your hand along the flexor tendon. Print Language: Upper Sorbian Disposition Disposition: Home, Self Care
[2024-11-23] MEDS: Amox/Clavulanate 875 MG Tablet PO (21:46)
[2024-11-23] MEDS: Diphth,Pertuss(Acell),Tet Vac 0.5 ML Vial IM (21:46)
[2024-11-23] MEDS: Lidocaine 1% (20 ml mdv) 20 ML Vial INFILT (21:47)
[2024-11-23 22:56] VITALS: BP 158/99; PULSE 79; RESP 16; TEMP 36.6; O2SAT 99
[2024-11-23 22:57] VITALS: BP 158/99; PULSE 79; RESP 16; TEMP 36.6; O2SAT 99
== END 2024-11-23 22:58 | disposition home or self-care (01) ==
PROVIDERS: Emergency Provider Emergency Medicine; PCP Student in an Organized Health Care Education/Training Program; Visit Provider Emergency Medicine
DX: S61.216A Laceration without foreign body of right little finger without damage to nail, initial encounter (principal); J44.9 Chronic obstructive pulmonary disease, unspecified; E11.9 Type 2 diabetes mellitus without complications; Z79.4 Long term (current) use of insulin; Z87.891 Personal history of nicotine dependence; I10 Essential (primary) hypertension; E78.5 Hyperlipidemia, unspecified; W55.01XA Bitten by cat, initial encounter; I25.2 Old myocardial infarction; Z79.84 Long term (current) use of oral hypoglycemic drugs; Z79.899 Other long term (current) drug therapy; F32.A Depression, unspecified; Z79.85 Long-term (current) use of injectable non-insulin antidiabetic drugs; K21.9 Gastro-esophageal reflux disease without esophagitis; Z90.49 Acquired absence of other specified parts of digestive tract; Z98.51 Tubal ligation status; Z23 Encounter for immunization
CPT/HCPCS: 12001; 90715; 99283

== ENCOUNTER 2025-05-17 09:41 | Day surgery (SDC) | payer MEDICARE, MEDICAID, SELFPAY ==
--- NOTE | 2025-05-15 16:18 | PAT.ANESEVAL ---
Pre-Assessment Diagnosis/Proposed Procedure Planned Operative Procedure(s): EGD/CSCOPE Anesthesia History Anesthesia History - supervisor of operations: Anesthesia History - supervisor of operations Hx Hospitalization No 05/15/25 15:56 Any Problems With Anesthesia Yes: N,V 05/15/25 15:56 Cholinesterase deficiency No 05/15/25 15:56 You/Your Family Experience No 05/15/25 15:56 fever (hyperthermia) with Relationship Recent Exposure to Contagious No 04/07/20 09:11 Disease Does patient have nerve No 05/15/25 15:56 stimulator Patient instructed to have device shut off --Does patient have Pacemaker or ICD? When Was Last Pacemaker Check QUESTION #4 FULL TEXT: You/Your Family Experience fever (hyperthermia) with Anesthesia Last Oral Intake Last Oral intake: Last Oral Intake NPO since Meds taken in AM with sips of water? Meds patient instructed to take am of surgery PONV PONV - supervisor of operations: PONV - supervisor of operations Female Yes 05/15/25 15:56 HX of Motion Sickness No 05/15/25 15:56 HX of N/V After Surgery Yes 05/15/25 15:56 Non-Smoker Yes 05/15/25 15:56 Duration of Surgery greater No 05/15/25 15:56 than 60 minutes Number of Risk Factors 3 05/15/25 15:56 PONV Score Moderate Risk 05/15/25 15:56 Height & Weight Height & Weight: Anesthesia: Height & Weight Height 5 ft 5 in 04/29/25 13:50 Respiratory Assessment Respiratory Assessment - supervisor of operations: Respiratory Tract Infection Hx - supervisor of operations Hx Respiratory Tract Infection No 05/15/25 15:56 STOP Sleep Apnea STOP Sleep Apnea - supervisor of operations: STOP Sleep Apnea - supervisor of operations Hx Hypertension Yes: CONTROLLED WITH MEDS 05/15/25 15:56 Hx Sleep Apnea No 05/15/25 15:56 CPAP No 01/13/21 18:58 BIPAP No 01/13/21 18:58 Do you snore loudly (louder Yes 05/15/25 15:56 than talking or can be heard Do you often feel tired/ No 05/15/25 15:56 fatigued/ sleepy during daytime? Has anyone observed you stop Yes 05/15/25 15:56 breathing during sleep? STOP Results Positive 05/15/25 15:56 QUESTION #5 FULL TEXT : Do you snore loudly (louder than talking or can be heard through closed doors)? 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 Specify any problems Hx of Preganancy in last 3 No 05/15/25 15:56 Months Nurse Filling Out Transfusion DSCHRIBER 05/15/25 15:56 & Questions: Date: 05/15/25 05/15/25 15:56 Time: 15:58 05/15/25 15:56 Patient unable to answer at this time (ie. confused, unrespo /Reproduction History /Reproductive History - supervisor of operations: /Reproductive Hx- supervisor of operations Hx Now No 05/15/25 15:56 Gestational Age (in weeks): EDC: Hx Hx Para Hx Section SAB No 05/15/25 15:56 Does the father of the baby or his family experience fever w Father of the baby Malignant Hypertension history comment PFSH Medical History (Updated 05/15/25 @ 16:05 by Maribell Espinal) Post-menopausal Wears glasses Depression Anxiety Marijuana use High cholesterol Insulin dependent diabetes mellitus Arthritis Easy bruising History of diverticulitis Gastric reflux COPD (chronic obstructive pulmonary disease) Shortness of breath on exertion History of stress test Cardiology follow-up encounter DVT (deep venous thrombosis) Osteoporosis Former smoker Hypertension Home Medications ?Medication ?Instructions ?Recorded ?Last Taken ?Type glimepiride 4 mg tablet 4 mg PO BID diabetes 05/25/17 08/27/19 History spironolactone 50 mg tablet 50 mg PO DAILY water pill 02/20/19 08/27/19 History insulin glargine 100 unit/mL (3 26 unit subcut QHS 07/10/19 08/26/19 History mL) subcutaneous pen escitalopram oxalate 10 mg tablet 40 mg PO DAILY depression 11/08/19 Unknown History zolpidem 5 mg tablet 10 mg PO QHS 03/15/20 Unknown History famotidine 20 mg tablet 20 mg PO QHS 09/21/20 Unknown History carvedilol 25 mg tablet 25 mg PO Q12H 01/27/23 Unknown History dulaglutide 3 mg/0.5 mL 3 mg subcut [place] 05/25/23 05/05/25 History subcutaneous pen injector (Trulicity) ondansetron 4 mg disintegrating 4 mg PO Q6H PRN nausea and 10/17/23 Unknown Rx tablet vomiting #12 tabs atorvastatin 20 mg tablet 20 mg PO QHS 11/09/23 Unknown History buspirone 15 mg tablet 15 mg PO TID 11/09/23 Unknown History esomeprazole magnesium 40 mg 40 mg PO QDAY #30 caps 04/29/25 Unknown Rx capsule,delayed release (Nexium) albuterol sulfate 90 mcg/actuation 2 puff inhalation Q4H PRN PRN 05/15/25 Unknown History aerosol inhaler wheezing amlodipine 2.5 mg tablet 2.5 mg PO DAILY 05/15/25 Unknown History cholecalciferol (vitamin D3) 1,250 1,250 mcg PO [place] 05/15/25 Unknown History mcg (50,000 unit) capsule diclofenac sodium 75 mg 75 mg PO BID PRN PRN pain 05/15/25 Unknown History tablet,delayed release nortriptyline 25 mg capsule 25 mg PO QHS insomnia 05/15/25 Unknown History Allergy/AdvReac Type Severity Reaction Status Date / Time bupropion (From Wellbutrin) Allergy Angioedema Verified 05/15/25 15:52 lisinopril Allergy Angioedema Verified 05/15/25 15:52 sulfamethoxazole (From Allergy Rash Verified 05/15/25 15:52 Bactrim) trimethoprim (From Bactrim) Allergy Rash Verified 05/15/25 15:52 aspirin AdvReac Nausea/Vom/ Verified 05/15/25 15:52 Diarrhea hydrocodone (From Vicodin) AdvReac Nausea/Vom/ Verified 05/15/25 15:52 Diarrhea rosuvastatin (From Crestor) AdvReac PT UNSURE Verified 05/15/25 15:52 OF REACTION Family History Father Diabetes Hypertension Mother Hypertension Surgical History (Updated 05/15/25 @ 16:05 by Maribell Espinal) Hx of colonoscopy History of cholecystectomy s/p novasure S/P tubal ligation s/p bladder sling S/P laparoscopic cholecystectomy Social History Smoking Status: Former smoker alcohol intake: never substance use type: marijuana Audit: Pertinent Findings Pertinent Findings EKG Perinent findings: 09/18/2024. Normal sinus rhythm. Inferior infarct (cited on or before March 14, 2020). Stress test pertinent findings: 01/14/2021. EF is 62%. No areas of reversibility are noted to suggest ischemia. No previous infarct. Recommendation Anesthesia Recommendation Anesthesia recommendation: OPTIMIZED for anesthesia
[2025-05-17] VITALS (7 sets, daily range): BP systolic 123–145; BP diastolic 66–89; PULSE 77–85; RESP 16; TEMP 36.6–37.2; O2SAT 77–97; BMI 34.2
--- NOTE | 2025-05-17 10:11 | PCM.PRE.AN2 ---
ASA Classification* ASA Classification ASA Classification: 2 Assessment & Plan Anesthesia* Anesthesia Assessment Anesthesia Assessment: Discussed sedation and/or anesthesia options, risks, benefits, and alternatives with patient/parents/legal guardian/POA. Questions invited. The patient/parents/legal guardian/POA seems to understand and agrees to proceed with anesthesia plan. Reviewed the physical assessment, medical history, allergy history and patient home medications list prior to surgery/procedure/anesthetic and documented any changes. Performed airway and anesthesia risk assessments. Anesthesia Type Anesthesia Type: MAC Anesthesia Focused Assessment* Airway Assessment Mouth opens: >3 cm Mallampati Score: II Labs Anesthesia Preop lab: CBC WBC, (4.4-11.0) 8.1 K/mm3 09/18/24, 20:45 RBC, (4.2-5.4) 4.51 M/mm3 09/18/24, 20:45 Hgb, (12.0-15.0) 13.8 g/dL 09/18/24, 20:45 Hct, (37-47) 40.6 % 09/18/24, 20:45 Plt Count, (150-450) 247 K/mm3 09/18/24, 20:45 CHEMISTRY Potassium, (3.3-5.1) 3.9 mmol/L 09/18/24, 20:45 Sodium, (133-145) 136 mmol/L 09/18/24, 20:45 Magnesium, (1.6-2.6) 1.6 mg/dL 01/14/21, 05:58 Phosphorus, (2.5-4.9) 3.0 mg/dL 01/14/21, 05:58 BUN, (4-19) 8 mg/dL 09/18/24, 20:45 Creatinine, (0.70-1.20) 0.85 mg/dL 09/18/24, 20:45 Glucose, (70-99) 117 mg/dL H 09/18/24, 20:45 POC Glucose, (74-106) 224 mg/dL H 01/27/23, 20:22 TSH, (0.358-3.74) 1.41 uIU/mL 01/14/21, 05:58 COAG PT, (11.7-14.9) 12.6 SECONDS 08/17/20, 18:35 Pre-Assessment Diagnosis/Proposed Procedure Planned Operative Procedure(s): EGD/CSCOPE Anesthesia History 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 When Was Last Pacemaker Check QUESTION #4 FULL TEXT: You/Your Family Experience fever (hyperthermia) with Anesthesia Last Oral Intake Last Oral intake: Last Oral Intake NPO since Meds taken in AM with sips of water? 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 Has anyone observed you stop Yes 05/15/25 15:56 breathing during sleep? STOP Results Positive 05/15/25 15:56 QUESTION #5 FULL TEXT : Do you snore loudly (louder than talking or can be heard through closed doors)? 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 Specify any problems Hx of Preganancy in last 3 No 05/15/25 15:56 Months Nurse Filling Out Transfusion DSCHRIBER 05/15/25 15:56 & Questions: Date: 05/15/25 05/15/25 15:56 Time: 15:58 05/15/25 15:56 Patient unable to answer at this time (ie. confused, unrespo /Reproduction History /Reproductive History - boring machine operator horizontal: /Reproductive Hx- boring machine operator horizontal Hx Now No 05/15/25 15:56 Gestational Age (in weeks): EDC: Hx Hx Para Hx Section SAB No 05/15/25 15:56 Does the father of the baby or his family experience fever w Father of the baby Malignant Hypertension history comment PFSH Medical History Post-menopausal Wears glasses Depression Anxiety Marijuana use High cholesterol Insulin dependent diabetes mellitus Arthritis Easy bruising History of diverticulitis Gastric reflux COPD (chronic obstructive pulmonary disease) Shortness of breath on exertion History of stress test Cardiology follow-up encounter DVT (deep venous thrombosis) Osteoporosis Former smoker Hypertension Home Medications ?Medication ?Instructions ?Recorded ?Last Taken ?Type glimepiride 4 mg tablet 4 mg PO BID diabetes 05/25/17 08/27/19 History spironolactone 50 mg tablet 50 mg PO DAILY water pill 02/20/19 08/27/19 History insulin glargine 100 unit/mL (3 26 unit subcut QHS 07/10/19 08/26/19 History mL) subcutaneous pen escitalopram oxalate 10 mg tablet 40 mg PO DAILY depression 11/08/19 Unknown History zolpidem 5 mg tablet 10 mg PO QHS 03/15/20 Unknown History famotidine 20 mg tablet 20 mg PO QHS 09/21/20 Unknown History carvedilol 25 mg tablet 25 mg PO Q12H 01/27/23 Unknown History dulaglutide 3 mg/0.5 mL 3 mg subcut [place] 05/25/23 05/05/25 History subcutaneous pen injector (Trulicity) ondansetron 4 mg disintegrating 4 mg PO Q6H PRN nausea and 10/17/23 Unknown Rx tablet vomiting #12 tabs atorvastatin 20 mg tablet 20 mg PO QHS 11/09/23 Unknown History buspirone 15 mg tablet 15 mg PO TID 11/09/23 Unknown History esomeprazole magnesium 40 mg 40 mg PO QDAY #30 caps 04/29/25 Unknown Rx capsule,delayed release (Nexium) albuterol sulfate 90 mcg/actuation 2 puff inhalation Q4H PRN PRN 05/15/25 Unknown History aerosol inhaler wheezing amlodipine 2.5 mg tablet 2.5 mg PO DAILY 05/15/25 Unknown History cholecalciferol (vitamin D3) 1,250 1,250 mcg PO [place] 05/15/25 Unknown History mcg (50,000 unit) capsule diclofenac sodium 75 mg 75 mg PO BID PRN PRN pain 05/15/25 Unknown History tablet,delayed release nortriptyline 25 mg capsule 25 mg PO QHS insomnia 05/15/25 Unknown History Allergy/AdvReac Type Severity Reaction Status Date / Time bupropion (From Wellbutrin) Allergy Angioedema Verified 05/15/25 15:52 lisinopril Allergy Angioedema Verified 05/15/25 15:52 sulfamethoxazole (From Allergy Rash Verified 05/15/25 15:52 Bactrim) trimethoprim (From Bactrim) Allergy Rash Verified 05/15/25 15:52 aspirin AdvReac Nausea/Vom/ Verified 05/15/25 15:52 Diarrhea hydrocodone (From Vicodin) AdvReac Nausea/Vom/ Verified 05/15/25 15:52 Diarrhea rosuvastatin (From Crestor) AdvReac PT UNSURE Verified 05/15/25 15:52 OF REACTION Family History Father Diabetes Hypertension Mother Hypertension Surgical History Hx of colonoscopy History of cholecystectomy s/p novasure S/P tubal ligation s/p bladder sling S/P laparoscopic cholecystectomy Social History Smoking Status: Former smoker alcohol intake: never substance use type: marijuana Review of Systems (Anesthesia) ROS Narrative System reviewed and no additional complaints, except as documented.
--- NOTE | 2025-05-17 10:13 | PCM.HP.BLA ---
History and Physical Date of Admission: 05/17/25 Date of Service: 04/29/25 MR#: [id number] Acct: [id number] Name: FER ARORA Rep #: [id number] : 1965 Provider: Dr. Charisma Shell MD Age/Sex: 60/F Location: [facility] Status: Signed with Addenda ADDENDUM by Dr. Charisma Shell MD on 04/30/25 at 1257 Intake Chief Complaint: nausea/vomiting, abd pain Allergies bupropion (From Wellbutrin) Allergy (Verified 04/29/25 13:51) Angioedema lisinopril Allergy (Verified 04/29/25 13:51) Angioedema sulfamethoxazole (From Bactrim) Allergy (Verified 04/29/25 13:51) Rash trimethoprim (From Bactrim) Allergy (Verified 04/29/25 13:51) Rash aspirin Adverse Reaction (Verified 04/29/25 13:51) Nausea/Vom/Diarrhea hydrocodone (From Vicodin) Adverse Reaction (Verified 04/29/25 13:51) Nausea/Vom/Diarrhea rosuvastatin (From Crestor) Adverse Reaction (Verified 04/29/25 13:51) PT UNSURE OF REACTION Medications ?Medication ?Instructions ?Recorded ?Confirmed ?Type glimepiride 4 mg tablet 4 mg PO BID diabetes 05/25/17 04/29/25 History spironolactone 50 mg tablet 50 mg PO DAILY water pill 02/20/19 04/29/25 History insulin glargine 100 unit/mL (3 34 units subcut QHS 07/10/19 04/29/25 History mL) subcutaneous pen escitalopram oxalate 10 mg tablet 40 mg PO DAILY depression 11/08/19 04/29/25 History zolpidem 5 mg tablet 10 mg PO QHS 03/15/20 04/29/25 History famotidine 20 mg tablet 20 mg PO QHS 09/21/20 04/29/25 History carvedilol 25 mg tablet 25 mg PO Q12H 01/27/23 04/29/25 History dulaglutide 3 mg/0.5 mL 3 mg subcut QWEEK 05/25/23 04/29/25 History subcutaneous pen injector (Trulicity) ondansetron 4 mg disintegrating 4 mg PO Q6H PRN nausea and 10/17/23 04/29/25 Rx tablet vomiting #12 tabs atorvastatin 20 mg tablet 20 mg PO QHS 11/09/23 04/29/25 History buspirone 15 mg tablet 15 mg PO TID 11/09/23 04/29/25 History esomeprazole magnesium 40 mg 40 mg PO QDAY #30 caps 04/29/25 04/29/25 Rx capsule,delayed release (Nexium) Assessment and Plan Assessment and Plan (1) GERD (gastroesophageal reflux disease): Status: Chronic Qualifiers: Esophagitis presence: esophagitis presence not specified Qualified Code(s): K21.9 - Gastro-esophageal reflux disease without esophagitis (2) Constipation: Status: Acute (3) Hx of colonic polyps: Status: Acute Orders: Orders Colonoscopy 05/17/25 EGD 05/17/25 Medications: New esomeprazole magnesium (Nexium) 40 mg PO QDAY 30 caps 3RF Discontinued omeprazole Discontinued Reason: Order Changed 40 mg PO DAILY Addendum Patient request that if there are any issues where she is unable to make decisions medically would want me to talk with her stepdaughter-patient states she is not her POA as she does not have a POA. 04/30/25 1257 <Electronically signed by Charisma Shell MD> Date Charisma Shell MD cc: Dr. Joaquim Burks, DO ~* Signed Intake Vital Signs 11/23/2520:14 04/29/2513:50 Height 5 ft 5 in 5 ft 5 in Weight: 207 lb 2 oz BMI 34.4 BP 147/90 H Blood Pressure Location Rt brachial Position Sitting Respiration 18 Pulse 85 Pulse Source Monitor Temp 97.8 F Temp Source Temporal Pulse Oximetry (%) 96 Oxygen Delivery Method room air Intake Visit Reasons: NAUSEA/VOMITING, ABD PAIN Chief Complaint: nausea/vomiting, abd pain Is patient in pain?: Yes (epigastric) Allergies bupropion (From Wellbutrin) Allergy (Verified 04/29/25 13:51) Angioedema lisinopril Allergy (Verified 04/29/25 13:51) Angioedema sulfamethoxazole (From Bactrim) Allergy (Verified 04/29/25 13:51) Rash trimethoprim (From Bactrim) Allergy (Verified 04/29/25 13:51) Rash aspirin Adverse Reaction (Verified 04/29/25 13:51) Nausea/Vom/Diarrhea hydrocodone (From Vicodin) Adverse Reaction (Verified 04/29/25 13:51) Nausea/Vom/Diarrhea rosuvastatin (From Crestor) Adverse Reaction (Verified 04/29/25 13:51) PT UNSURE OF REACTION Medications ?Medication ?Instructions ?Recorded ?Confirmed ?Type glimepiride 4 mg tablet 4 mg PO BID diabetes 05/25/17 04/29/25 History spironolactone 50 mg tablet 50 mg PO DAILY water pill 02/20/19 04/29/25 History insulin glargine 100 unit/mL (3 34 units subcut QHS 07/10/19 04/29/25 History mL) subcutaneous pen escitalopram oxalate 10 mg tablet 40 mg PO DAILY depression 11/08/19 04/29/25 History zolpidem 5 mg tablet 10 mg PO QHS 03/15/20 04/29/25 History famotidine 20 mg tablet 20 mg PO QHS 09/21/20 04/29/25 History carvedilol 25 mg tablet 25 mg PO Q12H 01/27/23 04/29/25 History dulaglutide 3 mg/0.5 mL 3 mg subcut QWEEK 05/25/23 04/29/25 History subcutaneous pen injector (Trulicity) ondansetron 4 mg disintegrating 4 mg PO Q6H PRN nausea and 10/17/23 04/29/25 Rx tablet vomiting #12 tabs atorvastatin 20 mg tablet 20 mg PO QHS 11/09/23 04/29/25 History buspirone 15 mg tablet 15 mg PO TID 11/09/23 04/29/25 History esomeprazole magnesium 40 mg 40 mg PO QDAY #30 caps 04/29/25 04/29/25 Rx capsule,delayed release (Nexium) PFSH Medical History DVT (deep venous thrombosis) Substance abuse Diabetes Osteoporosis Kidney stones Former smoker Sleep apnea Myocardial infarct C. difficile diarrhea Hiatal hernia Hyperglycemia Former tobacco use SHARMIN (obstructive sleep apnea) Morbid obesity Neck pain Difficulty breathing Tracheostomy dependence GERD (gastroesophageal reflux disease) Acute pancreatitis Anxiety and depression COPD (chronic obstructive pulmonary disease) Upper airway obstruction Acute respiratory failure Depression Angioedema Type II diabetes mellitus Hyperlipidemia Hypertension Surgical History History of cholecystectomy s/p novasure S/P tubal ligation s/p bladder sling S/P laparoscopic cholecystectomy Status post tracheostomy Family History Father Diabetes Hypertension Mother Hypertension Social History Smoking Status: Former smoker alcohol intake: never substance use type: marijuana HPI HPI HPI: 60-year-old female presents due to epigastric pain nausea and constipation. Patient was previously seen in October 2023 scheduled for an EGD and colonoscopy however she was on Xarelto at that time and did not get scheduled. Patient is currently off Xarelto. Patient has been taking the omeprazole and famotidine but states that it is not working and she has symptoms daily last office visit was she also had gotten a prescription for Carafate she denies any change with that. Patient states she has bowel movements maybe once a week and she has to strain for that patient does not take any laxatives. Patient is currently on Trulicity for her diabetes. Patient's last colonoscopy was in 2014 where she had hyperplastic polyps she was to have one in 2022; however during the upper scope she did aspirate was hospitalized unsure how much of the EGD was completed but the colonoscopy was not attempted. ROS General General: Yes weight change; No appetite, fatigue, colon cancer or breast cancer HEENT HEENT: Yes difficulty swallowing; No eye injury, eye surgery, swollen glands or hoarseness Endo Endocrine: Yes diabetes mellitus; No thyroid disease, thyroid cancer, Hair loss, heat intolerance or cold intolerance Skin Skin: No rash or changing moles Musc Musculoskeletal: Yes back problems and arthritis; No rheumatoid arthritis, gout or joint pain Cardio Cardiovascular: Yes high blood pressure; No murmur, pacemaker, heart disease, atrial fibrillation, heart attack, heart stent, palpitations, shortness of breath with exertion or chest pain Psych Psychiatric: Yes depression and anxiety; No hearing voices Resp Respiratory: No shortness of breath, No sleep apnea, No cough, Yes COPD, No asthma, No emphysema and No wheezing Gastro Gastrointestinal: Yes abdominal pain, Yes nausea or vomiting, No diarrhea, Yes constipation, No blood in stool, No acid reflux, No hemorrhoids, No ulcers, No gallbladder problem and No black,tarry stools Ivan Hematologic: No blood thinners, No blood disorders, No bleeding, No anemia and Yes blood clots Additional Details: Left leg April of 2023 Neuro Neurologic: Yes dizziness, No numbness and No tingling Exam Const General: cooperative, healthy appearing, comfortable and no acute distress [facility] Head: normocephalic and atraumatic Neck Neck: supple Resp Effort & Inspection: normal respiratory effort Cardio Rate: regular rate GI Inspection: non-distended Palpation: soft and tender in the epigastrum Skin General: no rashes or lesions noted Neuro General: CN's II-XI intact bilaterally Extrem General: normal to inspection Psych Mental Status: mental status grossly normal Attitude: cooperative Assessment and Plan Assessment and Plan (1) GERD (gastroesophageal reflux disease): Status: Chronic Qualifiers: Esophagitis presence: esophagitis presence not specified Qualified Code(s): K21.9 - Gastro-esophageal reflux disease without esophagitis (2) Constipation: Status: Acute (3) Hx of colonic polyps: Status: Acute Orders: Orders Colonoscopy 05/17/25 EGD 05/17/25 Medications: New esomeprazole magnesium (Nexium) 40 mg PO QDAY 30 caps 3RF Discontinued omeprazole Discontinued Reason: Order Changed 40 mg PO DAILY Plan Will try switching patient from omeprazole to Nexium see if that helps patient states she has been on omeprazole for years. I have discussed the above with the patient. I have offered the patient esophagogastroduodenoscopy and colonoscopy for evaluation. I have explained the risks/benefits of the procedure and described the procedure. I have discussed the risks with the patient, including but not limited to: infection, bleeding, perforation of the GI tract requiring emergency surgery, inability to complete the procedure, injury to any internal organs, complications of anesthesia, etc. - the patient understands and agrees to proceed. I have answered all the patient's questions to the patient's satisfaction and the patient has no further questions. The patient has been given instructions for the colon cleansing preparation. 2 days of clears?Dulcolax first day and MiraLAX Dulcolax prep the second day Charisma Shell M.D. Pager: [phone] [facility] [address] [place] [address], [facility], [address] [place] [address] Office: [phone] Coding Level of Care Code Off vis,est,level 3 Diagnoses Gastroesophageal reflux disease, esophagitis presence not specified K21.9 Esophagitis presence: esophagitis presence not specified Constipation K59.00 Hx of colonic polyps Z86.0100 04/30/25 1252 <Electronically signed by Charisma Shell MD> Date Charisma Shell MD
[2025-05-17] MEDS: Lactated Ringers 1,000 ML 15 ML IV (10:35)
--- NOTE | 2025-05-17 11:00 | COLBX_PTH ---
PATIENT: FER ARORA LOC: EN U#:[id number] AGE/SX: 60/F ROOM: RE05/17/[address]: Dr. Charisma Shell MD : 1965 BED: DIS: 05/17/2025 SPEC #: [id number] RECD: 05/17/25 15:12 STATUS: JETT REChris #: [id number] KEN: 05/17/25 11:[address]: Charisma Shell DEPT: SURGICAL PATHOLOGY RECD BY: Yvon Baum ENTERED: 05/17/25 16:03 SP TYPE: COLON BX OTHR DR: Dr. Joaquim Burks, DO Tissues: A - Gastric mucous membrane B - Esophagus, NOS Procedures: Immunohistochemical Stains Surgery Specimen Level IV HEADER OPERATION: Colonoscopy, EGD with biopsy PRE-OP DIAGNOSIS: GERD, constipation, history of colonic polyps TISSUE SUBMITTED: A- Antrum biopsy, B- GE junction biopsy MICROSCOPIC DIAGNOSIS A. Stomach, antrum, biopsy: * Antral mucosa with mild chronic inflammation * No morphologic evidence of Helicobacter pylori organisms on H&E or immunostained sections B. Esophagus, GE junction, biopsy: * Benign squamous epithelium * Oxyntocardiac type mucosa with mild chronic inflammation, negative for goblet cells MICROSCOPIC DESCRIPTION Slides are reviewed. All matched controls reacted appropriately. These tests were developed and their performance characteristics determined by [facility]. They may not have been cleared or approved by the U.S. Food and Drug Administration. The FDA has determined that such clearance or approval is not necessary. The above immunohistochemical markers are viewed by the Pathologist. GROSS DESCRIPTION A. Received in fixative is one container labeled with the patient's name and designated Antrum biopsy. The specimen consists of one irregular fragment of brennan tissue that measures 0.4 cm. The specimen is totally submitted in one cassette. B. Received in fixative is one container labeled with the patient's name and designated GE junction biopsy. The specimen consists of two irregular fragments of brennan tissue, each measuring 0.3 cm. The specimen is totally submitted in one cassette. NC 05/17/2025 CPT:17305v2
[2025-05-17] MEDS: Lidocaine 1% (5 ml sdv) 5 ML Vial IV (13:46)
[2025-05-17] MEDS: fentaNYL 100 MCG/2 ML Ampul IV (13:57)
--- NOTE | 2025-05-17 14:33 | OP.COLON_ITS ---
Patient Name: Kristie French Procedure Date: 05/17/2025 1:55 PM Date of : 1965 Age: 60 Procedure: Colonoscopy Indications: High risk colon cancer surveillance: Personal history of colonic polyps Providers: Charisma Shell MD Medicines: General Anesthesia Patient Profile: This is a 60 year old female. Last Colonoscopy: 2014. Complications: No immediate complications. Procedure: Pre-Anesthesia Assessment: - Prior to the procedure, a History and Physical was performed, and patient medications and allergies were reviewed. The patient's tolerance of previous anesthesia was also reviewed. The risks and benefits of the procedure and the sedation options and risks were discussed with the patient. All questions were answered, and informed consent was obtained. Prior Anticoagulants: The patient has taken no anticoagulant or antiplatelet agents. ASA Grade Assessment: Per anesthesia. After reviewing the risks and benefits, the patient was deemed in satisfactory condition to undergo the procedure. After I obtained informed consent, the scope was passed under direct vision. Throughout the procedure, the patient's blood pressure, pulse, and oxygen saturations were monitored continuously. The Colonoscope was introduced through the anus and advanced to the cecum, identified by the appendiceal orifice, ileocecal valve and palpation. The colonoscopy was performed without difficulty. The patient tolerated the procedure well. The quality of the bowel preparation was good. Scope In: 1:57:04 PM Scope Withdrawal Time 0 hours 11 minutes 19 seconds Scope Out: 2:20:19 PM Total Procedure Duration Time 0 hours 23 minutes 15 seconds Findings: The perianal and digital rectal examinations were normal. The entire examined colon appeared normal on direct and retroflexion views. A few small-mouthed diverticula were found in the sigmoid colon. Impression: - The entire examined colon is normal on direct and retroflexion views. - Diverticulosis in the sigmoid colon. - No specimens collected. Recommendation: - Discharge patient to home. - Resume previous diet. - Repeat colonoscopy in 10 years for screening purposes. - Continue present medications. Procedure Code(s): --- Professional --- G0105, Colorectal cancer screening; colonoscopy on individual at high risk Diagnosis Code(s): --- Professional --- Z86.010, Personal history of colonic polyps K57.30, Diverticulosis of large intestine without perforation or abscess without bleeding CPT copyright 2022 [employer]. All rights reserved. The codes documented in this report are preliminary and upon paper bag making machinist review may be revised to meet current compliance requirements. MD Charisma Alfonso MD 05/17/2025 2:33:00 PM This report has been signed electronically. Number of Addenda: 0 Note Initiated On: 05/17/2025 1:55 PM
--- NOTE | 2025-05-17 14:33 | OP.PROVAT_ITS ---
05/17/2025 Joaquim Burks [address] [place] [address] Re : Colonoscopy procedure for Kristie French Dear Dr. Burks This procedure was performed on Saturday, May 17, 2025. My impressions and recommendations are as follows: Impressions : - The entire examined colon is normal on direct and retroflexion views. - Diverticulosis in the sigmoid colon. - No specimens collected. Recommendations : - Discharge patient to home. - Resume previous diet. - Repeat colonoscopy in 10 years for screening purposes. - Continue present medications. My findings are described in the full procedure note, which is enclosed. If I can be of further assistance, please feel free to contact me at Doctor phone number(s): , Work: . Sincerely, MD Charisma Alfonso MD 05/17/2025 2:33:00 PM This report has been signed electronically.
--- NOTE | 2025-05-17 14:36 | OP.PROVAT_ITS ---
05/17/2025 Joaquim Burks [address] [place] [address] Re : Upper GI endoscopy procedure for Kristie French Dear Dr. Burks This procedure was performed on Saturday, May 17, 2025. My impressions and recommendations are as follows: Impressions : - Z-line irregular, 35 cm from the incisors. Biopsied. - Erythematous mucosa in the antrum. Biopsied. - Normal examined duodenum. - Bilious gastric fluid. Recommendations : - Await pathology results. - Discharge patient to home. - Resume previous diet. - Continue present medications. - Use sucralfate tablets 1 gram PO QID for 2 weeks. My findings are described in the full procedure note, which is enclosed. If I can be of further assistance, please feel free to contact me at Doctor phone number(s): , Work: . Sincerely, MD Charisma Alfonso MD 05/17/2025 2:35:55 PM This report has been signed electronically.
--- NOTE | 2025-05-17 14:36 | OP.EGD_ITS ---
Patient Name: Kristie French Procedure Date: 05/17/2025 1:33 PM Date of : 1965 Age: 60 Procedure: Upper GI endoscopy Indications: Heartburn Providers: Charisma Shell MD Medicines: General Anesthesia Patient Profile: This is a 60 year old female. Complications: No immediate complications. Procedure: Pre-Anesthesia Assessment: - Prior to the procedure, a History and Physical was performed, and patient medications and allergies were reviewed. The patient's tolerance of previous anesthesia was also reviewed. The risks and benefits of the procedure and the sedation options and risks were discussed with the patient. All questions were answered, and informed consent was obtained. Prior Anticoagulants: The patient has taken no anticoagulant or antiplatelet agents. ASA Grade Assessment: Per anesthesia. After reviewing the risks and benefits, the patient was deemed in satisfactory condition to undergo the procedure. After obtaining informed consent, the endoscope was passed under direct vision. Throughout the procedure, the patient's blood pressure, pulse, and oxygen saturations were monitored continuously. The Colonoscope was introduced through the mouth, and advanced to the second part of duodenum. The upper GI endoscopy was accomplished without difficulty. The patient tolerated the procedure well. Scope In: 1:48:27 PM Scope Out: 1:55:32 PM Total Procedure Duration Time 0 hours 7 minutes 5 seconds Findings: The Z-line was irregular and was found 35 cm from the incisors. Biopsies were taken with a cold forceps for histology. Mildly erythematous mucosa without bleeding was found in the gastric antrum. Biopsies were taken with a cold forceps for histology. Biopsies were taken with a cold forceps for Helicobacter pylori testing. The examined duodenum was normal. Bilious fluid was found in the gastric antrum. The cardia and gastric fundus were normal on retroflexion. Impression: - Z-line irregular, 35 cm from the incisors. Biopsied. - Erythematous mucosa in the antrum. Biopsied. - Normal examined duodenum. - Bilious gastric fluid. Recommendation: - Await pathology results. - Discharge patient to home. - Resume previous diet. - Continue present medications. - Use sucralfate tablets 1 gram PO QID for 2 weeks. Procedure Code(s): --- Professional --- 52444, PT, Esophagogastroduodenoscopy, flexible, transoral; with biopsy, single or multiple Diagnosis Code(s): --- Professional --- K22.89, Other specified disease of esophagus K31.89, Other diseases of stomach and duodenum R12, Heartburn CPT copyright 2021 [employer]. All rights reserved. The codes documented in this report are preliminary and upon city routeman review may be revised to meet current compliance requirements. MD Charisma Alfonso MD 05/17/2025 2:35:55 PM This report has been signed electronically. Number of Addenda: 0 Note Initiated On: 05/17/2025 1:33 PM
--- NOTE | 2025-05-17 15:26 | PCM.POST.ANE ---
Anesthesia: Postop Eval I Current Vital Signs Temperature: 98.9 F Pulse Rate: 83 Blood Pressure: 123/66 Respiratory Rate: 16 Pulse Ox: 95 Assessment Airway patent: Yes Spontaneous unlabored respirations: Yes Mental status: Awake nausea: No Vomiting: No Anesthesia Complication: No Fluid Hydration Crystalloid volume administer (ml): 150 Total IV fluid infused: 150 Progress Note Anesthesia document: Postop Eval 1 completed: Yes
--- NOTE | 2025-05-17 15:27 | PCM.POSTANE2 ---
Anesthesia Postop Eval I Sum Postop Eval Completion status Anesthesia document: Postop Eval 1 completed: Yes Anesthesia Postop Eval I Summary Anesthesia Postop Eval I Summary: Anesthesia Postop Eval I: Assessment Summary Airway patent Yes 05/17/25 15:27 Spontaneous unlabored Yes 05/17/25 15:27 respirations Mental status Awake 05/17/25 15:27 nausea No 05/17/25 15:27 Vomiting No 05/17/25 15:27 Anesthesia Postop Eval I: Fluid Summary Crystalloid volume administer 150 05/17/25 15:27 (ml) Colloids volume administered ( ml) Blood Product volume administered (ml) Total IV fluid infused 150 05/17/25 15:27 Anesthesia Postop Eval I: Summary Notes Anesthesia Complication No 05/17/25 15:27 Anesthesia Complication Comment: Post-operative progress note Anesthesia: Postop Eval II Evaluation Mental status: Awake Pain Level: 0 nausea: No Vomiting: No
== END 2025-05-17 15:08 | disposition home or self-care (01) ==
LOC: EN 09:45 → AC 10:13
PROVIDERS: PCP Student in an Organized Health Care Education/Training Program; Referring Provider Student in an Organized Health Care Education/Training Program; Visit Provider Surgery
PROC: 0DJD8ZZ Inspection of Lower Intestinal Tract, Via Natural or Artificial Opening Endoscopic (ICD-10-PCS; CPT 45378; principal; 2025-05-17 10:55)
DX: Z12.11 Encounter for screening for malignant neoplasm of colon (principal); J44.9 Chronic obstructive pulmonary disease, unspecified; E11.9 Type 2 diabetes mellitus without complications; Z79.4 Long term (current) use of insulin; Z79.84 Long term (current) use of oral hypoglycemic drugs; I10 Essential (primary) hypertension; E78.5 Hyperlipidemia, unspecified; Z87.891 Personal history of nicotine dependence; K57.30 Diverticulosis of large intestine without perforation or abscess without bleeding; K31.89 Other diseases of stomach and duodenum; Z86.0100 Personal history of colon polyps, unspecified; K22.89 Other specified disease of esophagus; Z79.85 Long-term (current) use of injectable non-insulin antidiabetic drugs; K59.00 Constipation, unspecified; I25.2 Old myocardial infarction; Z79.899 Other long term (current) drug therapy; F41.8 Other specified anxiety disorders; Z90.49 Acquired absence of other specified parts of digestive tract; Z98.51 Tubal ligation status; K29.50 Unspecified chronic gastritis without bleeding; K21.00 Gastro-esophageal reflux disease with esophagitis, without bleeding
CPT/HCPCS: 43239; 45378; 82962; 88305; 88342; J2405